=== PATIENT | male | born 1960 | race Caucasian/White ===

== ENCOUNTER 2019-03-20 07:52 | Inpatient (IN) ==
[2019-03-20] MEDS ORDERED: ALBUT/IPRATROP 3MG/0.5MG NEB 3 ML VIAL NEB ONE (08:14)
[2019-03-20] MEDS ORDERED: methylPREDNISolone 125 MG/2 ML VIAL IV STA (08:14)
[2019-03-20] MEDS ORDERED: SODIUM CHLORIDE 0.9% 1000ML 1,000 ML IV SCH (08:15)
[2019-03-20 08:24] LABS: Basophils # (auto) 0.01 K/uL (0-0.2); Basophils % (auto) 0.1 %; Eosinophils # (auto) 0.01 K/uL (0-0.5); Eosinophils % (auto) 0.1 %; Hematocrit (blood only) 49.7 % (42-52); Hemoglobin 17.7 g/dL (14.0-18.0); Immature Granulocytes # (auto) 0.08 K/uL (0.00-0.02); Immature Granulocytes % (auto) 0.5 %; Lymphocytes # (auto) 1.23 K/uL (1.2-3.4); Mean Corpuscular Hemoglobin 33.1 pg (25-34); Mean Corpuscular Hgb Conc 35.6 g/dL (32-36); Mean Corpuscular Volume 92.9 fL (80-100); Mean Platelet Volume 10.4 fL (7.4-10.4); Monocytes # (auto) 0.97 K/uL (0.11-0.59); Monocytes % (auto) 5.5 %; Neutrophils # (auto) 15.25 K/uL (1.4-6.5); Neutrophils % (auto) 86.8 %; Platelet Count 270 K/uL (130-400); RDW Coefficient of Variation 12.6 % (11.5-14.5); RDW Standard Deviation 42.4 fL (36.4-46.3); Red Blood Count 5.35 M/uL (4.7-6.1); White Blood Count 17.55 K/uL (4.8-10.8)
[2019-03-20 08:34] LABS: Partial Thromboplastin Time 26.8 Seconds (21.0-31.0); Prothrombin Time 10.5 Seconds (9.0-12.0)
[2019-03-20] MEDS: NICOTINE 14 MG/24 HR PATCH TD SCH ×2 (08:37→11:46)
--- NOTE | 2019-03-20 08:37 | XRay Report ---
XR chest 1V portable CLINICAL HISTORY: 59 years-old Male presenting with Dyspnea. TECHNIQUE: Portable upright AP view of the chest was obtained. COMPARISON: None. FINDINGS: Cardiomediastinal silhouette normal. Lungs are hyperinflated. Heterogeneous radiolucency of the lungs . No focal opacity. No pleural effusion or pneumothorax. Cervical fusion hardware noted. Old posterio r right rib fracture noted. Upper abdomen normal. IMPRESSION: 1. Findings suggest emphysema. No focal infiltrate to suggest pneumonia. Electronically signed by: Dano Jasso M.D. 03/20/2019 8:35 AM
[2019-03-20 08:50] LABS: Albumin Globulin Ratio 0.8 (0.9-2); Albumin Level 3.8 gm/dl (3.4-5.0); BUN Creatinine Ratio 33.9 (10-20); Bilirubin,Total 0.4 mg/dl (0.2-1); Calcium 9.5 mg/dl (8.5-10.1); Creatinine Clr Calc Pharmacy 73.3 ml/min; Est GFR (African American) 97.9; Est GFR (Non-African American) 84.5; Globulin 4.7 gm/dl (2.5-4.0); Magnesium 2.4 mg/dl (1.8-2.4); Potassium 4.6 mmol/L (3.5-5.1); Total Protein 8.5 gm/dl (6.4-8.2); Troponin I 0.058 ng/ml (0-0.045)
[2019-03-20] MEDS ORDERED: OXYCODONE HCL IR 5 MG TAB (IMMEDIATE RELEASE) PO STA (09:06)
[2019-03-20 09:07] LABS: Base Excess VBG 6.7 mEq/L; HCO3 VBG 36 mmol/L; Oxygen Saturation VBG < 60.0 %; PCO2 VBG 68 mmHg (38-50); PO2 VBG 24 mmHg; pH VBG 7.33 (7.36-7.41)
[2019-03-20 09:40] LABS: Influenza A virus by PCR Neg for Influ A (Neg); Influenza B virus by PCR Neg for Influ B (Neg)
--- NOTE | 2019-03-20 10:04 | History & Physical Report ---
Date of Service March 20, 2019 Assessment & Plan (1) Acute respiratory failure with hypoxia: (2) Acute exacerbation of chronic obstructive pulmonary disease (COPD): This is a 59yo M with a PMH of COPD, tobacco use disorder, bipolar disorder, anxiety and other medical problems listed below with presents with cough and shortness of breath x 6 days and was found to have acute respiratory failure with hypoxia and COPD exacerbation. -Initially hypoxic at 87% on room air. Given hour long breathing treatment and is now saturating at 98% on 2L NC -VBG pH of 7.33. No confusion or lethargy. Will repeat in 4 hours -CXR with evidence of emphysema. No focal infiltrate to suggest pneumonia -Solumedrol 40mg Q6H, Duonebs QIDR, Levaquin 500mg daily -Blood and sputum cultures pending -Does not take any home inhalers (albuterol, advair, spiriva) 2/2 cost (3) Elevated troponin: Mild trop elevation of 0.058 -Likely demand ischemia in setting of acute hypoxic respiratory failure -No chest pain, no history of CAD, EKG with artifact - repeat pending -Trend troponin, monitor on telemetry (4) Tobacco use disorder: Interested in smoking cessation. Nicotine patch provided (5) Anxiety: (6) Bipolar disorder: Continue Xanax, Zoloft (7) Chronic pain: Continue home dose [place] 1 tab BID, per home med rec/PDMP (8) H/O: CVA (cerebrovascular accident): Resume baby aspirin -Most recent CVA in May 2018, no deficits (9) Insomnia: Continue home trazodone, Ambien DVT Ppx: SQ heparin Code status: FULL PCP: Joe Dispo: Admitted to telemetry. Plan to return home once medically stable. Patient seen in collaboration with Dr. Almodovar. Please see addendum. History of Present Illness Chief Complaint: cough, SOB Primary Care Provider: Chris Diaz, This is a 59yo M with a PMH of COPD, tobacco use disorder, bipolar disorder, anxiety and other medical problems listed below with presents with cough and shortness of breath x 6 days. Describes cough as productive with green sputum. Initially had low grade fever that has since resolved. Has been audibly wheezing and has felt short of breath. Called clinic yesterday and was prescribed Z-demetrius and prednisone 40mg, which he took yesterday. SOB has progressed so came to ED today with family at bedside for further evaluation. Denies chills, hemoptysis or chest pain. Has been decreasing cigarette amount and now smokes 1/2 ppd. Is interested in quitting. Does not take any home inhalers (prescribed albuterol, Advair and Spiriva) due to cost. In ED, found to be afebrile and initially hypoxic at 87% on room air. Given hour long breathing treatment and is now saturating at 98% on 2L NC. Does not require home oxygen. Also given IV solu-medrol 125mg in ED and 1 L NSS. Leukocytosis of 17k. Troponin mildly elevated at 0.058. VBG pH of 7.33. CXR with evidence of emphysema. No lightheadedness, visual changes, sore throat, nausea, vomiting, abdominal pain, dysuria, diarrhea, constipation or lower extremity swelling. Allergies Allergy/AdvReac Type Severity Reaction Status Date / Time No Known Allergies Allergy Unverified 03/20/19 08:55 Home Medications Home Medications Medication Instructions Recorded Confirmed Type alprazolam [Xanax] 1 mg PO TID 03/20/19 03/20/19 History azithromycin 250 mg PO DAILY 03/20/19 03/20/19 History hydrocodone-acetaminophen [[place]] 1 tab PO BID PRN 03/20/19 03/20/19 History ipratropium-albuterol 3 ml INHALATION Q4 PRN 03/20/19 03/20/19 History prednisone 40 mg PO DAILY 03/20/19 03/20/19 History sertraline [Zoloft] 200 mg PO QPM 03/20/19 03/20/19 History tizanidine [Zanaflex] 4 mg PO TID PRN 03/20/19 03/20/19 History trazodone 300 mg PO QPM 03/20/19 03/20/19 History zolpidem 10 mg PO HS 03/20/19 03/20/19 History Past Med/Surg History Medical History Tobacco use disorder (Chronic) Chronic pain (Chronic) Bipolar disorder (Chronic) H/O: CVA (cerebrovascular accident) (Chronic) Anxiety (Chronic) COPD (chronic obstructive pulmonary disease) (Chronic) Surgical History History of cervical spinal surgery (Chronic) History of hip surgery (Chronic) Family History Other Heart disease Social History Preferred Language: [place] Front Office Director Required: No Beliefs That Will Affect Care: None Current Living Situation: Spouse Other Information That Helps Us Care for You: No Feels Safe at Home: Yes Safety Concerns: Feels Safe At This Time Smoking Status: Current every day smoker Tobacco Type: cigarettes ; Cigarettes Per Day: 10 ; Do You Dip or Chew Tobacco: No ; Second Hand Exposure: Yes ; Tobacco Cessation Education Requested by Patient: No Hx Alcohol Use: No Hx Substance Use: No Review of Systems Review of Systems: At least ten systems reviewed and negative except as noted in the HPI. Physical Exam Physical Exam: General Appearance: WD/WN, vitals as above, NAD, sitting up in bed, dyspneic when speaking, + accessory muscle use Head: normocephalic, atraumatic Eyes: normal inspection, PERRL, conjunctivae normal, anicteric sclerae ENT: external ear and nose normal, oropharynx normal Neck: trachea midline, no thyromegaly normal visual inspection Respiratory: tachypneic, diffuse wheezing heard in bilateral lung shemran, scattered rhonchi, no rales. +accessory muscle use when speaking Cardiovascular: regular rate, rhythm, no murmur, normal peripheral pulses. Vessels: no JVD or carotid bruit Chest: normal inspection of chest Abdomen/GI: normal bowel sounds, soft, nontender, no hepatosplenomegaly Extremities/Musculoskelatal: no cyanosis or clubbing, extremities motor strength 5/5 Neurologic: PERRL, EOMI, accommodation nl, no face palsy, no dysarthria CN's II-XI intact bilaterally and moves all extremities Psychiatric: A+Ox3, euthymic affect Skin: no rashes, normal color, warm/dry Results & Data Vital Signs (Past 12 Hours) Vital Signs Temp Pulse Pulse Resp BP Pulse Ox 03/20/19 09:30 78 27 H 159/89 H 98 03/20/19 09:15 81 26 H 153/91 H 100 03/20/19 09:00 74 20 141/88 H 100 03/20/19 08:45 75 26 H 133/100 100 03/20/19 08:31 80 22 98 03/20/19 08:30 78 21 138/89 100 03/20/19 08:17 99 03/20/19 08:15 96 03/20/19 08:10 90 33 H 166/104 H 87 L 03/20/19 07:58 36.4 C L 86 30 H 153/97 H 92 Laboratory Results Short CBC 03/20/19 Range/Units 08:13 WBC 17.55 H (4.8-10.8) K/uL Hgb 17.7 (14.0-18.0) g/dL Hct 49.7 (42-52) % Plt Count 270 (130-400) K/uL BMP 03/20/19 08:13 Sodium 133 L Potassium 4.6 Chloride 94 L Carbon Dioxide 33 H BUN 33 H Creatinine 0.97 Glucose 105 H Calcium 9.5 Cardiac Enzymes 03/20/19 Range/Units 08:13 Troponin I 0.058 H* (0-0.045) ng/ml Liver Function 03/20/19 Range/Units 08:13 Total Bilirubin 0.4 (0.2-1) mg/dl AST 29 (15-37) U/L ALT 21 (12-78) U/L Alkaline Phosphatase 94 (45-117) U/L Albumin 3.8 (3.4-5.0) gm/dl Diagnostic Findings CXR: IMPRESSION: 1. Findings suggest emphysema. No focal infiltrate to suggest pneumonia. Code Status & VTE Plan VTE Prophylaxis Plan VTE Prophylaxis will be ordered: Yes Supervising Physician Co-Signing Physician Notes Patient is a 59-year-old male with history of COPD, ongoing tobacco use and other problems presents with history of worsening cough, shortness of breath since about 1 week duration. He reports associated low-grade fever, audible wheezes. He was started on Z-Demetrius and prednisone by his PCP yesterday which did not help. He admits to not using his home inhalers for about 1 year. He was found to be hypoxic in 80s while in ED. Patient meets SIRS criteria, with no obvious source of infection. On exam patient is thin, frail, no apparent distress, normocephalic atraumatic, normal breath sounds, bilateral wheezes, S1- S2, no murmur, abdomen soft nontender, no pedal edema, grossly no focal neurological deficits. Patient is admitted for management of acute respiratory failure with hypoxia, hypercapnia secondary to COPD exacerbation. Agree with IV Solu-Medrol, Taiwo mario. Supplemental oxygen as needed. Trend cardiac enzymes. Patient currently denies any chest pain. Elevated troponins likely secondary to demand ischemia. Consider echo, further evaluation if troponin continues to rise. EKG showed no signs of acute ischemia. Counseled to quit smoking. I personally reviewed the record. Patient is interviewed and examined at bedside. Patient's care is coordinated with Yajaira Pires PA-C. Please refer to the documentation above for details of patient's presentation and for discussion of other issues.
--- NOTE | 2019-03-20 10:41 | Emergency Department Note ---
Entered by Tania Valdez acting as a scribe for Tone Marshall DO History of Present Illness General Chief complaint: Shortness of Breath/Dyspnea Stated complaint: DYSPNEA Time Seen by Provider: 03/20/19 08:03 Source: patient and family () History of Present Illness Onset (ago): hour(s) (prior to arrival) Location: chest Severity: similar to prior episodes Pain Consistency: + other (episode) Maximum Pain Intensity: 6 Quality: + other (shortness of breath) Associated symptoms: + chest pain, + cough (with green phlegm) and + other (- rhinorrhea; -leg swelling); no fever/chills The patient is a 59 year old male, with past medical history of COPD w/ emphysema, who presents to the Emergency Room with complaints of an episode of shortness of breath prior to arrival, per the patient's . The of the patient states the patient experiences symptoms like this every year around this time when the patient experiences a cold. The states that typically cough medicine and steroids helps with symptoms, but she notes they have not helped presently. The states the patient can not currently take a deep breath. The states the patient does not have a fever, rhinorrhea, or leg swelling. She does note the patient has had some chest pain and a cough with green phlegm. The states that patient does not have any drug allergies, but she notes the patient has not taken his daily medications since 2 days ago. The also sta piper the patient has not had his flu shot. She reports the patient started antibiotics (Augmentin 250 mg) and steroid treatment yesterday that was prescribed by the patient's family doctor - Dr. Chris Diaz. The patient reports he smokes a pack of cigarettes a day, and he denies recent long travel . Home Medications Home Medications Medication Instructions Recorded Confirmed Type alprazolam [Xanax] 1 mg PO TID 03/20/19 03/20/19 History azithromycin 250 mg PO DAILY 03/20/19 03/20/19 History hydrocodone-acetaminophen [[place]] 1 tab PO BID PRN 03/20/19 03/20/19 History ipratropium-albuterol 3 ml INHALATION Q4 PRN 03/20/19 03/20/19 History prednisone 40 mg PO DAILY 03/20/19 03/20/19 History sertraline [Zoloft] 200 mg PO QPM 03/20/19 03/20/19 History tizanidine [Zanaflex] 4 mg PO TID PRN 03/20/19 03/20/19 History trazodone 300 mg PO QPM 03/20/19 03/20/19 History zolpidem 10 mg PO HS 03/20/19 03/20/19 History Allergies Allergy/AdvReac Type Severity Reaction Status Date / Time No Known Allergies Allergy Unverified 03/20/19 08:55 Past Med/Surg History Medical History Tobacco use disorder (Chronic) Chronic pain (Chronic) Bipolar disorder (Chronic) H/O: CVA (cerebrovascular accident) (Chronic) Anxiety (Chronic) COPD (chronic obstructive pulmonary disease) (Chronic) Surgical History History of cervical spinal surgery (Chronic) History of hip surgery (Chronic) Family History Other Heart disease Social History Preferred Language: [place] [employer] Required: No Beliefs That Will Affect Care: None Current Living Situation: Spouse Other Information That Helps Us Care for You: No Feels Safe at Home: Yes Safety Concerns: Feels Safe At This Time Smoking Status: Current every day smoker Tobacco Type: cigarettes ; Cigarettes Per Day: 10 ; Do You Dip or Chew Tobacco: No ; Second Hand Exposure: Yes ; Tobacco Cessation Education Requested by Patient: No Hx Alcohol Use: No Hx Substance Use: No Review of Systems See HPI for pertinent positives & negatives. and A total of 10 systems reviewed and were otherwise negative Physical Exam Vital Signs Vital Signs - 24 hr 03/20/19 07:58 03/20/19 08:10 03/20/19 08:15 Temperature 36.4 C L Temperature Source Oral Sepsis Recent Fever Within 48 Hours No Sepsis Action Taken by Nursing No Action Required Pulse Rate 86 90 Pulse Rate [Apical] Pulse Rate from SpO2 Sensor 89 Pulse Strength Normal Respiratory Rate 30 H 33 H Respiratory Effort / Characteristics Non-Labored Labored Respiratory Depth Normal Shallow Respiratory Pattern Regular Rapid/Shallow Blood Pressure 153/97 H 166/104 H Blood Pressure Mean 115 124 Pulse Oximetry 92 87 L 96 Oxygen Delivery Method Room Air Room Air Nasal Cannula Oxygen Flow Rate 2 03/20/19 08:17 03/20/19 08:30 03/20/19 08:31 Temperature Temperature Source Sepsis Recent Fever Within 48 Hours Sepsis Action Taken by Nursing Pulse Rate 78 Pulse Rate [Apical] 80 Pulse Rate from SpO2 Sensor 79 Pulse Strength Respiratory Rate 21 22 Respiratory Effort / Characteristics Spontaneous Respiratory Depth Respiratory Pattern Blood Pressure 138/89 Blood Pressure Mean 105 Pulse Oximetry 99 100 98 Oxygen Delivery Method Nasal Cannula Nasal Cannula Nasal Cannula Oxygen Flow Rate 2 2 2 03/20/19 08:45 03/20/19 09:00 03/20/19 09:15 Temperature Temperature Source Sepsis Recent Fever Within 48 Hours Sepsis Action Taken by Nursing Pulse Rate 75 74 81 Pulse Rate [Apical] Pulse Rate from SpO2 Sensor 75 75 81 Pulse Strength Respiratory Rate 26 H 20 26 H Respiratory Effort / Characteristics Respiratory Depth Respiratory Pattern Blood Pressure 133/100 141/88 H 153/91 H Blood Pressure Mean 111 105 111 Pulse Oximetry 100 100 100 Oxygen Delivery Method Nebulizer Nebulizer Oxygen Flow Rate 03/20/19 09:30 03/20/19 09:45 03/20/19 09:56 Temperature Temperature Source Sepsis Recent Fever Within 48 Hours Sepsis Action Taken by Nursing Pulse Rate 78 82 84 Pulse Rate [Apical] Pulse Rate from SpO2 Sensor 78 81 86 Pulse Strength Respiratory Rate 27 H 22 18 Respiratory Effort / Characteristics Respiratory Depth Respiratory Pattern Blood Pressure 159/89 H 162/96 H 162/96 H Blood Pressure Mean 112 118 118 Pulse Oximetry 98 92 93 Oxygen Delivery Method Nasal Cannula Nasal Cannula Nasal Cannula Oxygen Flow Rate 2 2 2 03/20/19 10:00 Temperature Temperature Source Sepsis Recent Fever Within 48 Hours Sepsis Action Taken by Nursing Pulse Rate 84 Pulse Rate [Apical] Pulse Rate from SpO2 Sensor 83 Pulse Strength Respiratory Rate 20 Respiratory Effort / Characteristics Respiratory Depth Respiratory Pattern Blood Pressure 167/92 H Blood Pressure Mean 117 Pulse Oximetry 92 Oxygen Delivery Method Nasal Cannula Oxygen Flow Rate 2 GENERAL: Patient is awake, alert, and appears anxious. EYES: The conjunctivae are clear. The pupils are round and reactive. EARS, NOSE, MOUTH AND THROAT: The nose is without any evidence of any deformity. Mucous membranes are moist.Tongue is midline NECK: The neck is nontender and supple. RESPIRATORY: Lungs sounds diminished throughout. Expiratory wheezing in all sherman. Poor air movement was noted. Significant tachypnea and conversational dyspnea was appreciated. Retractions were noted. CARDIOVASCULAR: Regular rate and rhythm noted. There no murmurs rubs or gallops normal S1 normal S2 GASTROINTESTINAL: The abdomen is soft. Bowel sounds are present in all quadrants. Abdomen is nontender. MUSCULOSKELETAL/EXTREMITIES: There is no evidence of gross deformity. Full range of motion is noted in the hips and shoulders. SKIN: There is no obvious evidence of any rash. There are no petechiae, pallor or cyanosis noted. NEUROLOGIC: Patient is awake alert and oriented x3. Course 0810: Past medical records reviewed. The patient was evaluated in room B3B. A complete history and physical exam was performed. 0900: I reevaluated the patient. The patient is feeling a little better, but the patient is asking for something for his headache. 0908: I reviewed the patient's case with Faye Chaidez. Dr. Santi Chaidez will evaluate the patient for further management. Consultations Consultation #1: I reviewed the patient's case with Faye Chaidez. Dr. Santi Chaidez will evaluate the patient for further management. Time: 09:08 Administered Medications Albuterol (Duoneb) 3 ml NEB QIDR [facility] Stop: 04/19/19 10:59 Last Admin: 03/20/19 15:01 Dose: 3 ml Documented by: [id number] Admin: 03/20/19 13:56 Dose: Not Given Documented by: [id number] Alprazolam (Xanax) 1 mg PO TID LINDA Stop: 04/19/19 13:59 Last Admin: 03/20/19 15:08 Dose: 1 mg Documented by: [id number] Heparin Sodium (Porcine) (Heparin Sodium (Porcine)) 5,000 units SQ Q8 LINDA Stop: 04/19/19 13:59 Last Admin: 03/20/19 15:04 Dose: 5,000 units Documented by: [id number] Cosigned by: [id number] Methylprednisolone 40 mg/ (Syringe) 0.64 mls @ 1.5 mls/min IV Q6H LINDA Stop: 04/19/19 13:59 Last Admin: 03/20/19 15:07 Dose: 1.5 mls/min Documented by: [id number] Levofloxacin/Dextrose (Levaquin/D5w) 500 mg in 100 mls @ 100 mls/hr IV Q24H LINDA Stop: 03/27/19 11:29 Last Infusion: 03/20/19 13:20 Dose: 0 mls/hr Documented by: [id number] Admin: 03/20/19 12:20 Dose: 100 mls/hr Documented by: [id number] Sodium Chloride (Nss 1000ml) 1,000 mls @ 80 mls/hr IV .[id number] ONE Stop: 03/20/19 23:46 Last Infusion: 03/20/19 13:20 Dose: 80 mls/hr Documented by: [id number] Infusion: 03/20/19 12:21 Dose: 0 mls/hr Documented by: [id number] Admin: 03/20/19 12:20 Dose: 80 mls/hr Documented by: [id number] Nicotine (Nicoderm Cq) 14 mg TD QAM LINDA Stop: 04/19/19 08:29 Last Admin: 03/20/19 11:46 Dose: Not Given Documented by: [id number] Admin: 03/20/19 08:37 Dose: 14 mg Documented by: [id number] Discontinued Medications Albuterol (Duoneb) 12 ml NEB ONE ONE Stop: 03/20/19 08:15 Last Admin: 03/20/19 08:28 Dose: 12 ml Documented by: [id number] Alprazolam (Xanax) 1 mg PO NOW STA Stop: 03/20/19 12:06 Last Admin: 03/20/19 12:20 Dose: 1 mg Documented by: [id number] Sodium Chloride (Nss 1000ml) 1,000 mls @ 999 mls/hr IV .Q1H1M LINDA Stop: 03/20/19 09:15 Last Infusion: 03/20/19 09:23 Dose: 0 mls/hr Documented by: [id number] Admin: 03/20/19 08:21 Dose: 999 mls/hr Documented by: [id number] Influenza Virus Vaccine Quadrival (Flucelvax Quad Vaccine) 0.5 ml IM .ONCE ONE Stop: 03/20/19 14:01 Last Admin: 03/20/19 15:12 Dose: 0.5 ml Documented by: [id number] Methylprednisolone (Solumedrol) 125 mg IV NOW STA Stop: 03/20/19 08:15 Last Admin: 03/20/19 08:21 Dose: 125 mg Documented by: [id number] Oxycodone HCl (Roxicodone Immediate Rel) 5 mg PO NOW STA Stop: 03/20/19 09:07 Last Admin: 03/20/19 09:11 Dose: 5 mg Documented by: [id number] Pneumococcal Polyvalent Vaccine (Pneumovax-23) 25 mcg IM .ONCE ONE Stop: 03/20/19 14:01 Last Admin: 03/20/19 15:08 Dose: 25 mcg Documented by: [id number] Medical Decision Making Differential Diagnosis Differential diagnosis: Etiologies such as infections, reactive airway disease, pneumonia, pneumothorax, COPD, CHF, cardiac ischemia, pulmonary embolism, musculoskeletal, gastrointestinal, as well as others were entertained. Medical Records Attestation: I reviewed the patient's medical records. Home Medications Current Medication List: was personally reviewed by me Laboratory Data Attestation: I reviewed the patient's lab results. Result diagrams: 03/20/19 08:13 03/20/19 08:13 Lab Results 03/20/19 03/20/19 03/20/19 Range/Units 08:13 08:13 08:13 WBC 17.55 H (4.8-10.8) K/uL RBC 5.35 (4.7-6.1) M/uL Hgb 17.7 (14.0-18.0) g/dL Hct 49.7 (42-52) % MCV 92.9 (80-100) fL MCH 33.1 (25-34) pg MCHC 35.6 (32-36) g/dL RDW Std Deviation 42.4 (36.4-46.3) fL RDW Coeff of Mani 12.6 (11.5-14.5) % Plt Count 270 (130-400) K/uL MPV 10.4 (7.4-10.4) fL Immature Gran % (Auto) 0.5 % Neut % (Auto) 86.8 % Lymph % (Auto) 7.0 % [place] % (Auto) 5.5 % Eos % (Auto) 0.1 % Baso % (Auto) 0.1 % Immature Gran # (Auto) 0.08 H (0.00-0.02) K/uL Neut # (Auto) 15.25 H (1.4-6.5) K/uL Lymph # (Auto) 1.23 (1.2-3.4) K/uL [place] # (Auto) 0.97 H (0.11-0.59) K/uL Eos # (Auto) 0.01 (0-0.5) K/uL Baso # (Auto) 0.01 (0-0.2) K/uL PT 10.5 (9.0-12.0) Seconds INR 1.0 (0.9-1.1) APTT 26.8 (21.0-31.0) Seconds PTT Ratio 1.0 VBG pH (7.36-7.41) VBG pCO2 (38-50) mmHg VBG pO2 mmHg VBG HCO3 mmol/L VBG O2 Saturation % VBG Base Excess mEq/L Barometric Pressure mm/Hg Sodium 133 L (136-145) mmol/L Potassium 4.6 (3.5-5.1) mmol/L Chloride 94 L (98-107) mmol/L Carbon Dioxide 33 H (21-32) mmol/L Anion Gap 6.0 (3-11) BUN 33 H (7-18) mg/dl Creatinine 0.97 (0.6-1.4) mg/dl Est Cr Clr Drug Dosing 73.3 ml/min Est GFR ( Amer) 97.9 Est GFR (Non-Af Amer) 84.5 BUN/Creatinine Ratio 33.9 H (10-20) Glucose 105 H (70-99) mg/dl Calcium 9.5 (8.5-10.1) mg/dl Magnesium 2.4 (1.8-2.4) mg/dl Total Bilirubin 0.4 (0.2-1) mg/dl AST 29 (15-37) U/L ALT 21 (12-78) U/L Alkaline Phosphatase 94 (45-117) U/L Troponin I 0.058 H* (0-0.045) ng/ml Total Protein 8.5 H (6.4-8.2) gm/dl Albumin 3.8 (3.4-5.0) gm/dl Globulin 4.7 H (2.5-4.0) gm/dl Albumin/Globulin Ratio 0.8 L (0.9-2) Specimen Hemolysis Hepatitis C Ab Screen (Neg) Influenza Type A (PCR) (Neg) Influenza Type B (PCR) (Neg) 1003/20/19 03/20/19 Range/Units 08:13 08:13 08:38 WBC (4.8-10.8) K/uL RBC (4.7-6.1) M/uL Hgb (14.0-18.0) g/dL Hct (42-52) % MCV (80-100) fL MCH (25-34) pg MCHC (32-36) g/dL RDW Std Deviation (36.4-46.3) fL RDW Coeff of Mani (11.5-14.5) % Plt Count (130-400) K/uL MPV (7.4-10.4) fL Immature Gran % (Auto) % Neut % (Auto) % Lymph % (Auto) % [place] % (Auto) % Eos % (Auto) % Baso % (Auto) % Immature Gran # (Auto) (0.00-0.02) K/uL Neut # (Auto) (1.4-6.5) K/uL Lymph # (Auto) (1.2-3.4) K/uL [place] # (Auto) (0.11-0.59) K/uL Eos # (Auto) (0-0.5) K/uL Baso # (Auto) (0-0.2) K/uL PT (9.0-12.0) Seconds INR (0.9-1.1) APTT (21.0-31.0) Seconds PTT Ratio VBG pH 7.33 L (7.36-7.41) VBG pCO2 68 H (38-50) mmHg VBG pO2 24 mmHg VBG HCO3 36 mmol/L VBG O2 Saturation < 60.0 % VBG Base Excess 6.7 mEq/L Barometric Pressure 729.8 mm/Hg Sodium (136-145) mmol/L Potassium (3.5-5.1) mmol/L Chloride (98-107) mmol/L Carbon Dioxide (21-32) mmol/L Anion Gap (3-11) BUN (7-18) mg/dl Creatinine (0.6-1.4) mg/dl Est Cr Clr Drug Dosing ml/min Est GFR ( Amer) Est GFR (Non-Af Amer) BUN/Creatinine Ratio (10-20) Glucose (70-99) mg/dl Calcium (8.5-10.1) mg/dl Magnesium (1.8-2.4) mg/dl Total Bilirubin (0.2-1) mg/dl AST (15-37) U/L ALT (12-78) U/L Alkaline Phosphatase (45-117) U/L Troponin I (0-0.045) ng/ml Total Protein (6.4-8.2) gm/dl Albumin (3.4-5.0) gm/dl Globulin (2.5-4.0) gm/dl Albumin/Globulin Ratio (0.9-2) Specimen Hemolysis Hepatitis C Ab Screen Neg (Neg) Influenza Type A (PCR) Neg for Influ A (Neg) Influenza Type B (PCR) Neg for Influ B (Neg) Imaging Data Radiologist's Impression: Radiology results as stated below per my review and the radiologist's interpretation: XR chest 1V portable CLINICAL HISTORY: 59 years-old Male presenting with Dyspnea. TECHNIQUE: Portable upright AP view of the chest was obtained. COMPARISON: None. FINDINGS: Cardiomediastinal silhouette normal. Lungs are hyperinflated. Heterogeneous radiolucency of the lungs. No focal opacity. No pleural effusion or pneumothorax. Cervical fusion hardware noted. Old posterior right rib fracture noted. Upper abdomen normal. IMPRESSION: 1. Findings suggest emphysema. No focal infiltrate to suggest pneumonia. Electronically signed by: Dano Jasso M.D. 03/20/2019 8:35 AM ECG Data Attestation: I personally reviewed and interpreted this ECG as follows: Indication: SOB/dyspnea Rate (beats per minute): 72 Rhythm: normal sinus Findings: no PAC, no PVC, no ST depression, no ST elevation, no acute ischemic change and no ectopy Comparison ECG Date: no prior available Blood Pressure Blood Pressure Findings: Elevated blood pressure Blood Pressure Disposition: further management by hospitalist ALEXY Narrative The patient is a 59-year-old male who presented to the emergency department for an evaluation of difficulty breathing. The patient is a history of COPD. He does have significant shortness of breath on my physical exam. The patient was treated with rhonchal dilator therapy as well as IV steroids. He was also treated with IV fluids. The patient was reevaluated multiple times. His breathing status continued to improve. He had much less conversational dyspnea on physical exam. I discussed the patient's laboratory and radiographic studies with him. He was hypoxic but this was improved on supplement oxygen. I discussed this case with the on-call [facility] hospitalist group. They have agreed to evaluate the patient in the emergency department for further management disposition. Impression & Plan Acute exacerbation of chronic obstructive pulmonary disease (COPD), Hypoxia, Elevated troponin Critical Care Time Critical Care Time: Yes Total Critical Care Time: 45 I have personally spent 45 minutes of critical care time in the direct management of this patient. This includes bedside care, interpretation of diagnostic studies, and testing, discussion with consultants, patient, and family members, and other required patient management activities. This 45 minutes is in excess of all separately billable procedures. Discharge Plan Visit Data *Final* Discharge Date/Time: 03/20/19 10:19 Chief Complaint: Shortness of Breath/Dyspnea Stated Complaint: DYSPNEA ED Provider: Tone Marshall Discharge Problem: Acute exacerbation of chronic obstructive pulmonary disease (COPD), Hypoxia, Elevated troponin Patient Disposition: Admitted As Inpatient Discharge Instructions Interventions: ED Discharge Assessment Last Done: 03/20/19 10:19 The scribe's documentation has been prepared under my direction and personally reviewed by me in its entirety. I confirm that the note above accurately reflects all work, treatment, procedures, and medical decision making performed by me.
[2019-03-20] MEDS ORDERED: ACETAMINOPHEN 325 MG TAB PO PRN (10:50)
[2019-03-20] MEDS ORDERED: POLYETHYLENE (MIRALAX) 17 GM PACK PO PRN (10:50)
[2019-03-20] MEDS ORDERED: SODIUM CHLORIDE 0.9% 1000ML 1,000 ML IV ONE (11:17)
[2019-03-20] MEDS ORDERED: ALPRAZolam 0.5 MG TABLET PO STA (12:05)
[2019-03-20] MEDS: LEVOFLOXACIN/D5W 500 MG/100 ML BAG IV SCH (12:20)
[2019-03-20 13:56] LABS: Appearance Urine Clear (Clear); Bacteria Urine Automated Negative (Negative); Bilirubin Urine Negative (Negative); Blood Urine Trace (Negative); Cast Urine Automated 0 /lpf (0-5); Color Urine Yellow; Glucose Urine UA Negative (Negative); Ketones Urine 1+ (Negative); Leukocyte Esterase Urine Negative (Negative); Nitrite Urine Negative (Negative); Protein Urine Negative (Negative); RBC Urine Automated 0-4 /hpf (0-4); Specific Gravity Urine 1.024 (1.000-1.030); Urobilinogen Urine Negative (Negative)
[2019-03-20] MEDS: ALBUT/IPRATROP 3MG/0.5MG NEB 3 ML VIAL NEB SCH ×3 (13:56→19:09)
[2019-03-20] MEDS ORDERED: PNEUMOCOCCAL POLYSACCHARIDES 25 MCG/0.5 ML VIAL/SYR IM ONE (14:00)
[2019-03-20] MEDS ORDERED: INFLUENZA ADMINISTRATION CHARGE ONE (14:00)
[2019-03-20] MEDS ORDERED: PNEUMOCOCCAL ADMINISTRATION CHARGE ONE (14:00)
[2019-03-20] MEDS ORDERED: INFLUENZA VIRUS QUAD VACCINE 0.5 ML SYR IM ONE (14:00)
[2019-03-20] MEDS: HEPARIN SOD 5,000 UNIT/0.5 ML VIAL SQ SCH ×2 (15:04→20:31)
[2019-03-20] MEDS: methylPREDNISolone 40 MG in SYRINGE 0 ML IV SCH ×2 (15:07→20:31)
[2019-03-20] MEDS: ALPRAZolam 0.5 MG TABLET PO SCH ×2 (15:08→20:38)
[2019-03-20] MEDS: SERTRALINE HCL 100 MG TABLET PO SCH (20:30)
[2019-03-20] MEDS: TRAZODONE HCL 100 MG TAB PO SCH (20:30)
[2019-03-20] MEDS: ZOLPIDEM TARTRATE 10 MG TAB PO SCH (20:38)
[2019-03-21] MEDS: methylPREDNISolone 40 MG in SYRINGE 0 ML IV SCH ×4 (03:01→20:30)
[2019-03-21] MEDS: ALBUT/IPRATROP 3MG/0.5MG NEB 3 ML VIAL NEB SCH ×5 (03:55→19:10)
[2019-03-21] MEDS: HEPARIN SOD 5,000 UNIT/0.5 ML VIAL SQ SCH ×3 (05:13→20:33)
[2019-03-21 07:25] LABS: Hematocrit (blood only) 42.7 % (42-52); Hemoglobin 14.6 g/dL (14.0-18.0); Mean Corpuscular Hemoglobin 31.7 pg (25-34); Mean Corpuscular Hgb Conc 34.2 g/dL (32-36); Mean Corpuscular Volume 92.6 fL (80-100); Mean Platelet Volume 10.4 fL (7.4-10.4); Platelet Count 268 K/uL (130-400); RDW Coefficient of Variation 12.9 % (11.5-14.5); RDW Standard Deviation 43.1 fL (36.4-46.3); Red Blood Count 4.61 M/uL (4.7-6.1); White Blood Count 27.33 K/uL (4.8-10.8)
[2019-03-21 07:36] LABS: BUN Creatinine Ratio 31.3 (10-20); Calcium 8.8 mg/dl (8.5-10.1); Creatinine Clr Calc Pharmacy 74.9 ml/min; Est GFR (African American) 109.2; Est GFR (Non-African American) 94.3; Potassium 4.1 mmol/L (3.5-5.1)
[2019-03-21] MEDS: ALPRAZolam 0.5 MG TABLET PO SCH ×3 (08:07→20:30)
[2019-03-21] MEDS: NICOTINE 14 MG/24 HR PATCH TD SCH (08:08)
[2019-03-21] MEDS: ALBUT/IPRATROP 3MG/0.5MG NEB 3 ML VIAL NEB PRN ×2 (08:22→17:53)
[2019-03-21] MEDS: LEVOFLOXACIN/D5W 500 MG/100 ML BAG IV SCH (12:19)
[2019-03-21 14:19] LABS: Base Excess VBG 9.1 mEq/L; Oxygen Saturation VBG 87.6 %; pH VBG 7.46 (7.36-7.41)
--- NOTE | 2019-03-21 16:08 | Hospitalist Progress Note ---
Date of Service March 21, 2019 Assessment & Plan (1) Acute respiratory failure with hypoxia: Has gradually been improved, At present on room air, no respiratory distress or hypoxia at rest (2) Acute exacerbation of chronic obstructive pulmonary disease (COPD): This is a 59yo M with a PMH of COPD, tobacco use disorder, bipolar disorder, anxiety and other medical problems listed below with presents with cough and shortness of breath x 6 days and was found to have acute respiratory failure with hypoxia and COPD exacerbation. -Initially hypoxic at 87% on room air. Given hour long breathing treatment and is now saturating at 98% on 2L NC -VBG pH of 7.33. No confusion or lethargy. Respiratory status improved to approximate baseline, no hypoxia in room air -CXR with evidence of emphysema. No focal infiltrate to suggest pneumonia -Start tapering down Solu-Medrol -Does not take any home inhalers (albuterol, advair, spiriva) 2/2 cost Will consult social service, and looking to affordable prescription for inhalers (3) Elevated troponin: Mild trop elevation of 0.058 -Likely demand ischemia in setting of acute hypoxic respiratory failure -No chest pain, no history of CAD, EKG with artifact - - No evidence of acute coronary event, patient remained stable, (4) Tobacco use disorder: Interested in smoking cessation. Nicotine patch provided (5) Anxiety: (6) Bipolar disorder: Continue Xanax, Zoloft (7) Chronic pain: Continue home dose [place] 1 tab BID, per home med rec/PDMP (8) H/O: CVA (cerebrovascular accident): Resume baby aspirin -Most recent CVA in May 2018, no deficits (9) Insomnia: Continue home trazodone, Ambien DVT Ppx: SQ heparin Code status: FULL PCP: Joe Dispo: Expect to be discharged home when medically Subjective Patient feels his breathing has improved somewhat, no audible wheeze, no cough no fever or chills Has been able to walk on the hallway, does get short of breath after few steps Review of Systems Review of Systems: All systems reviewed & are unremarkable except as noted in HPI & below Physical Exam Constitutional: + ill appearing and + thin; no acute distress Eyes: PERRL, conjunctivae normal, anicteric sclerae ENMT: external ear and nose normal, oropharynx normal Neck: trachea midline, no thyromegaly Respiratory: normal respiratory effort and + cough; no respiratory distress Auscultation: + rales and + wheezes Cardiovascular: RRR, no murmur, no edema Gastrointestinal (Abdomen): normal bowel sounds, soft, nontender, no hepatosplenomegaly Musculoskeletal: no cyanosis or clubbing, extremities motor strength 5/5 Skin: no rashes, warm and dry Neurologic: PERRL, EOMI, accommodation nl, no face palsy, no dysarthria Psychiatric: A+Ox3, euthymic affect Results & Data Vital Signs (Past 12 Hours) Vital Signs Temp Pulse Resp BP Pulse Ox 03/21/19 15:57 77 18 98 03/21/19 15:22 36.9 C 77 22 140/77 95 03/21/19 12:11 36.7 C 82 16 142/84 H 91 03/21/19 10:48 88 20 93 03/21/19 08:23 63 18 95 03/21/19 07:57 36.8 C 63 20 162/96 H 95 03/21/19 07:21 79 16 97
[2019-03-21] MEDS: HYDROCODONE/ACETAMINOPHEN 10/325 TAB PO PRN (17:32)
[2019-03-21] MEDS: ZOLPIDEM TARTRATE 10 MG TAB PO SCH (20:30)
[2019-03-21] MEDS: SERTRALINE HCL 100 MG TABLET PO SCH (20:31)
[2019-03-21] MEDS: TRAZODONE HCL 100 MG TAB PO SCH (20:31)
[2019-03-22] MEDS: HYDROCODONE/ACETAMINOPHEN 10/325 TAB PO PRN ×3 (00:43→12:25)
[2019-03-22] MEDS: ALBUT/IPRATROP 3MG/0.5MG NEB 3 ML VIAL NEB PRN (00:47)
[2019-03-22] MEDS: methylPREDNISolone 40 MG in SYRINGE 0 ML IV SCH ×4 (01:03→20:57)
[2019-03-22] MEDS: HEPARIN SOD 5,000 UNIT/0.5 ML VIAL SQ SCH ×3 (06:00→20:57)
[2019-03-22 06:33] LABS: Hematocrit (blood only) 43.3 % (42-52); Hemoglobin 15.1 g/dL (14.0-18.0); Mean Corpuscular Hemoglobin 32.4 pg (25-34); Mean Corpuscular Hgb Conc 34.9 g/dL (32-36); Mean Corpuscular Volume 92.9 fL (80-100); Mean Platelet Volume 9.9 fL (7.4-10.4); Platelet Count 245 K/uL (130-400); RDW Standard Deviation 43.8 fL (36.4-46.3); Red Blood Count 4.66 M/uL (4.7-6.1); White Blood Count 25.11 K/uL (4.8-10.8)
[2019-03-22 07:03] LABS: BUN Creatinine Ratio 30.7 (10-20); Calcium 8.8 mg/dl (8.5-10.1); Creatinine Clr Calc Pharmacy 72.4 ml/min; Est GFR (African American) 107.7; Est GFR (Non-African American) 92.9; Potassium 4.2 mmol/L (3.5-5.1)
[2019-03-22] MEDS: ALBUT/IPRATROP 3MG/0.5MG NEB 3 ML VIAL NEB SCH ×4 (07:20→19:48)
[2019-03-22] MEDS: NICOTINE 14 MG/24 HR PATCH TD SCH (09:24)
[2019-03-22] MEDS: ALPRAZolam 0.5 MG TABLET PO SCH ×3 (09:26→20:56)
[2019-03-22] MEDS: LEVOFLOXACIN/D5W 500 MG/100 ML BAG IV SCH (12:33)
--- NOTE | 2019-03-22 17:08 | Hospitalist Progress Note ---
Date of Service March 22, 2019 Assessment & Plan (1) Acute respiratory failure with hypoxia: Has gradually been improved, Continue nebulizer treatment, steroids, patient will need to step pulse oximetry prior to discharge home, History of 1-1/2 pack cigarettes a day for last 50 years long conversation regarding smoking cessation -patient is convinced to quit smoking (2) Acute exacerbation of chronic obstructive pulmonary disease (COPD): This is a 59yo M with a PMH of COPD, tobacco use disorder, bipolar disorder, anxiety and other medical problems listed below with presents with cough and shortness of breath x 6 days and was found to have acute respiratory failure with hypoxia and COPD exacerbation. -Initially hypoxic at 87% on room air. Given hour long breathing treatment and is now saturating at 98% on 2L NC -VBG pH of 7.33. No confusion or lethargy. Respiratory status improved -CXR with evidence of emphysema. No focal infiltrate to suggest pneumonia IV Levaquin discontinued -Start tapering down Solu-Medrol -Does not take any home inhalers (albuterol, advair, spiriva) 2/2 cost Will consult social service, and looking to affordable prescription for inhalers (3) Elevated troponin: Mild trop elevation of 0.058 -Likely demand ischemia in setting of acute hypoxic respiratory failure -No chest pain, no history of CAD, EKG with artifact - - No evidence of acute coronary event, patient remained stable, Telemetry discontinued (4) Tobacco use disorder: Interested in smoking cessation. Nicotine patch provided (5) Anxiety: (6) Bipolar disorder: Continue Xanax, Zoloft (7) Chronic pain: Continue home dose [place] 1 tab BID, per home med rec/PDMP (8) H/O: CVA (cerebrovascular accident): Resume baby aspirin -Most recent CVA in May 2018, no deficits (9) Insomnia: Continue home trazodone, Ambien DVT Ppx: SQ heparin Code status: FULL PCP: Joe Dispo: Expect to be discharged home when medically stable Subjective Does not have any audible wheeze, no cough Still requiring supplemental O2 (was not on home oxygen supplement) No fever or chills, No chest pain or dyspnea on exertion Physical Exam Constitutional: + ill appearing and + thin; no acute distress Eyes: PERRL, conjunctivae normal, anicteric sclerae ENMT: external ear and nose normal, oropharynx normal Neck: trachea midline, no thyromegaly Respiratory: normal respiratory effort and + cough; no respiratory distress Auscultation: + rales and + wheezes Cardiovascular: RRR, no murmur, no edema Gastrointestinal (Abdomen): normal bowel sounds, soft, nontender, no hepatosplenomegaly Musculoskeletal: no cyanosis or clubbing, extremities motor strength 5/5 Skin: no rashes, warm and dry Neurologic: PERRL, EOMI, accommodation nl, no face palsy, no dysarthria Psychiatric: A+Ox3, euthymic affect Results & Data Vital Signs (Past 12 Hours) Vital Signs Temp Pulse Pulse Pulse Resp BP Pulse Ox 03/22/19 15:30 36.9 C 74 72 16 161/90 H 93 03/22/19 15:23 74 03/22/19 13:56 78 03/22/19 13:18 37.0 C 73 18 128/79 95 03/22/19 11:14 36.4 C L 67 19 123/87 97 03/22/19 11:07 71 20 96 03/22/19 07:40 36.8 C 64 19 154/86 H 93 03/22/19 07:37 36.8 C 80 22 138/79 97 03/22/19 07:22 77 20 96
[2019-03-22] MEDS: SERTRALINE HCL 100 MG TABLET PO SCH (20:56)
[2019-03-22] MEDS: TRAZODONE HCL 100 MG TAB PO SCH (20:56)
[2019-03-22] MEDS: ZOLPIDEM TARTRATE 10 MG TAB PO SCH (20:56)
[2019-03-23] MEDS: HYDROCODONE/ACETAMINOPHEN 10/325 TAB PO PRN ×3 (03:03→17:03)
[2019-03-23] MEDS: ALBUT/IPRATROP 3MG/0.5MG NEB 3 ML VIAL NEB PRN (03:14)
[2019-03-23] MEDS: TIZANIDINE HCL 4 MG TABLET PO PRN ×2 (05:25→12:47)
[2019-03-23] MEDS: HEPARIN SOD 5,000 UNIT/0.5 ML VIAL SQ SCH ×3 (05:25→20:49)
[2019-03-23] MEDS: methylPREDNISolone 40 MG in SYRINGE 0 ML IV SCH (05:26)
[2019-03-23] MEDS ORDERED: ALPRAZolam 0.5 MG TABLET PO STA (06:10)
[2019-03-23] MEDS: ALPRAZolam 0.5 MG TABLET PO SCH ×3 (06:11→20:55)
[2019-03-23] MEDS: ALBUT/IPRATROP 3MG/0.5MG NEB 3 ML VIAL NEB SCH ×4 (06:22→19:09)
[2019-03-23] MEDS: NICOTINE 14 MG/24 HR PATCH TD SCH (08:36)
[2019-03-23] MEDS ORDERED: IOVERSOL 100ml IV PRN (11:34)
--- NOTE | 2019-03-23 11:48 | CT Scan Report ---
CT OF THE CHEST WITH IV CONTRAST CLINICAL HISTORY: Smoker. Weight loss. Evaluate for pulmonary mass. COMPARISON STUDY: Chest x-ray dated 03/20/2019 TECHNIQUE: Following the IV administration of 94 mL of Optiray-320, CT of the thorax was performed f rom the thoracic inlet to the lung bases. Images are reviewed in the axial, sagittal, and coronal andrew vincent. IV contrast was administered without complication. A dose lowering technique was utilized adher ing to the principles of ALARA. CT DOSE: 415.96 mGy.cm FINDINGS: Thyroid: Imaged portions of the thyroid gland are normal in appearance. Thoracic aorta: The thoracic aorta is normal in course and caliber, noting standard 3-vessel arch allison gonzales. No aneurysm or dissection is seen. Pulmonary vasculature: The pulmonary trunk is normal in caliber. There are no central filling defects identified to suggest pulmonary embolus. Note that this examination was not protocoled for the evalu ation of pulmonary emboli. HEART: The heart is normal in size and configuration, without pericardial effusion. Lungs and pleural spaces: There is severe pulmonary emphysema. There is no focal pulmonary consolidat ion. No endobronchial lesions are visualized. In addition to multiple scattered pulmonary micronodule s, there is a solid 5 mm right lower lobe pleural-based pulmonary nodule is visualized on image #[id number]. A 12 month follow-up is optional. Mediastinum: There is no mediastinal lymphadenopathy. Steffi: Clear. Axilla: Clear. Upper abdomen: Partially visualized upper abdominal viscera is within normal limits. Skeletal structures: Postsurgical changes are present within the cervical spine. There are several mi ld thoracic to body compression deformities. IMPRESSION: 1. Severe pulmonary emphysema 2. No evidence of focal pulmonary consolidation 3. Solid 5 mm right lower lobe subpleural pulmonary nodule. In a high-risk patient a 12 month follow- up is optional. 4. No evidence of pathologic adenopathy Electronically signed by: Dwayne Banuelos M.D. 03/23/2019 11:47 AM
--- NOTE | 2019-03-23 14:35 | Hospitalist Progress Note ---
Date of Service March 23, 2019 Assessment & Plan (1) Acute respiratory failure with hypoxia: Respiratory status has been continues to improve Continue nebulizer treatment, steroids, patient will need to step pulse oximetry prior to discharge home, History of 1-1/2 pack cigarettes a day for last 50 years long conversation regarding smoking cessation -patient is convinced to quit smoking SIGNIFICANT WEIGHT LOSS Report of 40 pound weight loss (unintentional) in last 1 year Patient reports of normal appetite History of chronic heavy smoking CT chest with contrast ordered: Impression: 1. Severe pulmonary emphysema 2. No evidence of focal pulmonary consolidation 3. Solid 5 mm right lower lobe sub-pleural pulmonary nodule. In high risk patient is a 12-month follow-up is optional 4. No evidence of pathologic adenopathy Report of CAT scan updated to patient and patient's Patient had screening colonoscopy 2 years back which was normal Patient will need continued outpatient CT chest surveillance/monitor (2) Acute exacerbation of chronic obstructive pulmonary disease (COPD): This is a 59yo M with a PMH of COPD, tobacco use disorder, bipolar disorder, anxiety and other medical problems listed below with presents with cough and shortness of breath x 6 days and was found to have acute respiratory failure with hypoxia and COPD exacerbation. -Initially hypoxic at 87% on room air. Given hour long breathing treatment and is now saturating at 98% on 2L NC -VBG pH of 7.33. No confusion or lethargy. Respiratory status improved -CXR with evidence of emphysema. No focal infiltrate to suggest pneumonia IV Levaquin discontinued - Transition to p.o. prednisone, -Does not take any home inhalers (albuterol, advair, spiriva) 2/2 co Prescription for inhalers sent to patient's pharmacy Patient's albuterol inhaler 1 month supply co-pay$60 Advair is nonformulary Breo/Ellipta is on formulary per patient's insurance Co-pay $100 Patient is updated regarding the cost (3) Elevated troponin: Mild trop elevation of 0.058 -Likely demand ischemia in setting of acute hypoxic respiratory failure -No chest pain, no history of CAD, EKG with artifact - - No evidence of acute coronary event, patient remained stable, Telemetry discontinued (4) Tobacco use disorder: Interested in smoking cessation. Nicotine patch provided (5) Anxiety: (6) Bipolar disorder: Continue Xanax, Zoloft (7) Chronic pain: Continue home dose Edison 1 tab BID, per home med rec/PDMP (8) H/O: CVA (cerebrovascular accident): Resume baby aspirin -Most recent CVA in May 2018, no deficits (9) Insomnia: Continue home trazodone, Ambien DVT Ppx: SQ heparin Code status: FULL PCP: Joe Dispo: Expect to be discharged home when medically stable Subjective Has minimum shortness of breath no audible wheeze, Fever or chills Physical Exam Constitutional: + ill appearing and + thin; no acute distress Eyes: PERRL, conjunctivae normal, anicteric sclerae ENMT: external ear and nose normal, oropharynx normal Neck: trachea midline, no thyromegaly Respiratory: normal respiratory effort and + cough; no respiratory distress Auscultation: + rales and + wheezes Cardiovascular: RRR, no murmur, no edema Gastrointestinal (Abdomen): normal bowel sounds, soft, nontender, no hepatosplenomegaly Musculoskeletal: no cyanosis or clubbing, extremities motor strength 5/5 Skin: no rashes, warm and dry Neurologic: PERRL, EOMI, accommodation nl, no face palsy, no dysarthria Psychiatric: A+Ox3, euthymic affect Results & Data Vital Signs (Past 12 Hours) Vital Signs Temp Pulse Resp BP Pulse Ox 03/23/19 10:56 56 L 16 96 03/23/19 08:24 36.6 C 76 22 151/87 H 95 03/23/19 06:21 86 18 91 03/23/19 06:19 90 03/23/19 05:00 95 03/23/19 04:00 98 03/23/19 03:15 74 16 94 03/23/19 03:11 91 03/23/19 03:10 87 L
[2019-03-23] MEDS: TRAZODONE HCL 100 MG TAB PO SCH (20:50)
[2019-03-23] MEDS: SERTRALINE HCL 100 MG TABLET PO SCH (20:51)
[2019-03-23] MEDS: ZOLPIDEM TARTRATE 10 MG TAB PO SCH (20:55)
[2019-03-23] MEDS ORDERED: methylPREDNISolone 40 MG in SYRINGE 0 ML IV SCH (21:00)
[2019-03-24] MEDS: HYDROCODONE/ACETAMINOPHEN 10/325 TAB PO PRN ×2 (01:50→08:13)
[2019-03-24] MEDS: HEPARIN SOD 5,000 UNIT/0.5 ML VIAL SQ SCH (06:23)
[2019-03-24] MEDS: ALBUT/IPRATROP 3MG/0.5MG NEB 3 ML VIAL NEB SCH ×2 (06:54→11:21)
[2019-03-24] MEDS: TIZANIDINE HCL 4 MG TABLET PO PRN (06:55)
[2019-03-24] MEDS: ALPRAZolam 0.5 MG TABLET PO SCH (08:13)
[2019-03-24] MEDS: NICOTINE 14 MG/24 HR PATCH TD SCH (08:15)
[2019-03-24] MEDS ORDERED: predniSONE 20 MG TAB PO SCH (09:00)
--- NOTE | 2019-03-24 11:56 | Discharge Summary ---
Date of Service March 24, 2019 Admission HPI Per Admitting Provider This is a 59yo M with a PMH of COPD, tobacco use disorder, bipolar disorder, anxiety and other medical problems listed below with presents with cough and shortness of breath x 6 days. Describes cough as productive with green sputum. Initially had low grade fever that has since resolved. Has been audibly wheezing and has felt short of breath. Called clinic yesterday and was prescribed Z-keshawn and prednisone 40mg, which he took yesterday. SOB has progressed so came to ED today with family at bedside for further evaluation. Denies chills, hemoptysis or chest pain. Has been decreasing cigarette amount and now smokes 1/2 ppd. Is interested in quitting. Does not take any home inhalers (prescribed albuterol, Advair and Spiriva) due to cost. In ED, found to be afebrile and initially hypoxic at 87% on room air. Given hour long breathing treatment and is now saturating at 98% on 2L NC. Does not require home oxygen. Also given IV solu-medrol 125mg in ED and 1 L NSS. Leukocytosis of 17k. Troponin mildly elevated at 0.058. VBG pH of 7.33. CXR with evidence of emphysema. No lightheadedness, visual changes, sore throat, nausea, vomiting, abdominal pain, dysuria, diarrhea, constipation or lower extremity swelling. Principal Diagnosis COPD exacerbation/acute respiratory failure: Resolved/tobacco abuse disorder Discharge Exam Constitutional + ill appearing and + thin; no acute distress Eyes PERRL, conjunctivae normal, anicteric sclerae ENMT external ear and nose normal, oropharynx normal Neck trachea midline, no thyromegaly Respiratory normal respiratory effort and + cough; no respiratory distress Auscultation: + rales and + wheezes Cardiovascular RRR, no murmur, no edema Gastrointestinal (Abdomen) normal bowel sounds, soft, nontender, no hepatosplenomegaly Musculoskeletal no cyanosis or clubbing, extremities motor strength 5/5 Skin no rashes, warm and dry Neurologic PERRL, EOMI, accommodation nl, no face palsy, no dysarthria Psychiatric A+Ox3, euthymic affect Discharge Data Allergies Allergy/AdvReac Type Severity Reaction Status Date / Time No Known Allergies Allergy Unverified 03/20/19 08:55 Consultations 03/20/19 09:10 ED Decision to Admit Stat Ordered Studies 03/23/19 11:09 CT chest w con Routine Hospital Course (1) Acute respiratory failure with hypoxia: Respiratory status has been improved to approximate baseline No wheeze, no cough no fever chills Two-step pulse oximetry test shows patient needs 2 L oxygen on ambulation, prescription for home O2 given Stable to be discharged home today, Patient is discharged home with oral prednisone taper, Albuterol inhaler as needed for wheeze Breo/Ellipta 1 inhalation twice daily for maintenance therapy(formulary in per patient's insurance) History of 1-1/2 pack cigarettes a day for last 50 years long conversation regarding smoking cessation -patient is convinced to quit smoking Requested for nicotine patch on discharge, prescription sent to his pharmacy SIGNIFICANT WEIGHT LOSS Report of 40 pound weight loss (unintentional) in last 1 year Patient reports of normal appetite History of chronic heavy smoking CT chest with contrast ordered: Impression: 1. Severe pulmonary emphysema 2. No evidence of focal pulmonary consolidation 3. Solid 5 mm right lower lobe sub-pleural pulmonary nodule. In high risk patient is a 12-month follow-up is optional 4. No evidence of pathologic adenopathy Report of CAT scan updated to patient and patient's Patient had screening colonoscopy 2 years back which was normal Patient will need continued outpatient CT chest surveillance/monitor Nicotine patch prescription sent to patient's pharmacy (2) Acute exacerbation of chronic obstructive pulmonary disease (COPD): This is a 59yo M with a PMH of COPD, tobacco use disorder, bipolar disorder, anxiety and other medical problems listed below with presents with cough and shortness of breath x 6 days and was found to have acute respiratory failure with hypoxia and COPD exacerbation. -Initially hypoxic at 87% on room air. Given hour long breathing treatment and is now saturating at 98% on 2L NC -VBG pH of 7.33. No confusion or lethargy. Respiratory status improved -CXR with evidence of emphysema. No focal infiltrate to suggest pneumonia IV Levaquin discontinued - Transition to p.o. prednisone, Discharged home on p.o. prednisone taper -Does not take any home inhalers (albuterol, advair, spiriva) 2/2 co Prescription for inhalers sent to patient's pharmacy Patient's albuterol inhaler 1 month supply co-pay$60 Advair is nonformulary Breo/Ellipta is on formulary per patient's insurance Co-pay $100 Patient is updated regarding the cost agreeable for the co-pay cost Prescription for Breo/Ellipta and albuterol inhaler sent to patient's pharmacy (3) Elevated troponin: Mild trop elevation of 0.058 -Likely demand ischemia in setting of acute hypoxic respiratory failure -No chest pain, no history of CAD, EKG with artifact - - No evidence of acute coronary event, patient remained stable, Telemetry discontinued (4) Tobacco use disorder: Interested in smoking cessation. Nicotine patch provided (5) Anxiety: (6) Bipolar disorder: Continue Xanax, Zoloft (7) Chronic pain: Continue home dose [place] 1 tab BID, per home med rec/PDMP (8) H/O: CVA (cerebrovascular accident): Resume baby aspirin -Most recent CVA in May 2018, no deficits (9) Insomnia: Continue home trazodone, Ambien DVT Ppx: SQ heparin Code status: FULL PCP: Joe Dispo: Stable to be discharged home today Hospital follow-up with family physician Dr. Diaz on 03/27/2019 at 1:15 PM Patient will continue to be followed up at pulmonology service at [facility] Total Time Total Time Spent Total Time Spent (In Minutes): approx 40 mins Total Time Includes: Examination of the Patient, Discharge Planning and Medication Reconciliation Discharge Plan Discharge Items Patient Disposition: Home - Self-Care Reason For Visit: COPD EXACERBATION,ACUTE RESP FAILURE Discharge Diagnosis: COPD exacerbation/acute respiratory failure: Resolved/tobacco abuse disorder Activity: Resume your previous activity Non-emergency contact: Primary Care Provider Call non-emergency contact if: you have any medication questions Follow-up/Referrals: Chris Diaz DO [Primary Care Provider] - 03/27/19 1:15 pm Diet: Regular Addtl Attending Provider Instructions: Hospital follow-up with family physician Dr. Diaz on 03/27/2019 at 1:15 PM It is very important for you to quit smoking tobacco to prevent further worsening of your lung function/condition CT chest with IV contrast 03/23/2019: 1. Severe pulmonary emphysema noted 2. Solid 5 mm right lower lobe subpleural pulmonary nodule Repeat CT chest with contrast in 3 months Pending Studies at Discharge: Yes Studies:: CT chest with contrast in 3 months to assess right lower lobe pulmonary nodule Stand-Alone Forms: My [facility] Medications and DC Order Prescriptions: New prednisone 20 mg tablet 20 mg PO UD 6 Days Qty: 6 RF: 0 albuterol sulfate 90 mcg/actuation HFA aerosol inhaler 2 puffs INH QID PRN (Reason: shortness of breath or wheezing) Qty: 18 RF: 3 Breo Ellipta 200-25 mcg/dose blister with device 1 puffs INH DAILY Qty: 60 RF: 3 nicotine 21 mg/24 hr patch 24 hour 1 patch TD DAILY Qty: 28 RF: 4 Continued ipratropium-albuterol 0.5 mg-3 mg(2.5 mg base)/3 mL solution for nebulization 3 ml inhalation Q4 PRN (Reason: Shortness Of Breath) RF: 0 alprazolam [Xanax] 1 mg tablet 1 mg PO TID RF: 0 tizanidine [Zanaflex] 4 mg tablet 4 mg PO TID PRN (Reason: Muscle Spasm) RF: 0 sertraline [Zoloft] 100 mg tablet 200 mg PO QPM RF: 0 hydrocodone-acetaminophen [Prague] 10-325 mg tablet 1 tab PO BID PRN (Reason: Pain) RF: 0 trazodone 150 mg tablet 300 mg PO QPM RF: 0 zolpidem 10 mg tablet 10 mg PO HS RF: 0 Discontinued azithromycin 250 mg tablet 250 mg PO DAILY RF: 0 prednisone 20 mg tablet 40 mg PO DAILY RF: 0 Discharge Orders: Discharge Order (Routine); Ordered 03/24/19 Ordered By: Sandi Benedict Admission Data Admit Date/Time: 03/20/19 10:01 Attending Provider: Sandi Benedict Admit Provider: Jorge L Almodovar Primary Care Provider: Chris Diaz Other Providers: Jorge L Almodovar ; Tao Blount Other Interventions: Discharge Summary Assessment (RN) Last Done: 03/24/19 12:11 DC Date/Time DO NOT enter until pt leaves facility: 03/24/19 13:10
== END 2019-03-24 13:10 | disposition home or self-care (01) | DRG 189 ==
LOC: ED 07:52 → SUATTDRO 10:01 → 2S 10:01 → 2N 03-22 13:10

== ENCOUNTER 2019-11-27 18:00 | Inpatient (IN) ==
[~2019-11-27 18:00] MED LIST: ROCURONIUM BROMIDE 10 MG/ML 5 ML VIAL IV ONE
[2019-11-27] MEDS ORDERED: NALOXONE HCL 0.4 MG/1 ML VIAL/CARP IV STA (18:05)
[2019-11-27] MEDS ORDERED: SODIUM CHLORIDE 0.9% 1000ML 1,000 ML IV ONE (18:05)
[2019-11-27] MEDS ORDERED: CEFEPIME 2,000 MG/20 ML VIAL IV STA (18:05)
--- NOTE | 2019-11-27 18:10 | Emergency Department Note ---
Impression & Plan Respiratory arrest, COPD (chronic obstructive pulmonary disease), Elevated troponin, Overdose of analgesic ED Provider Note NAME: ZE BO AGE: 59 SEX: M : 1960 ARRIVES VIA: Ambulance INFORMANT: Patient, ED PROVIDER(S): Rafa Mobley MD Chief Complaint: Respiratory arrest, cardiac arrest HPI: Patient does present via EMS. History is limited secondary to clinical condition and intubation. The patient reportedly suffered some sort of cardiac arrest and upon arrival with an AED tap and die maker technician noted the patient did have a pulse. No shocks were advised or given. tap and die maker technician did think the patient may have been in A. fib. The patient was subsequently intubated. Patient does have a known history of COPD. No concerns for drugs but the patient does take hydrocodone based on the patient's med list. No concerns for trauma. Per tap and die maker technician they did not relate whether or not the patient has had any symptoms of COVID. Initial exam the patient does have pinpoint pupils decreased breath sounds in the left side the patient is currently debated was half and half ET tube. Numerous tattoos over the body and the patient does not move to stimulation. Patient's BSG prior to arrival was 97 patient currently 100% on supplemental oxygen via endotracheal tube. ROS: Unable to obtain secondary to clinical acuity and intubation. Past medical history: See below Surgical history: See below Social history: See below Physical Exam: GENERAL: Severe distress, intubated. EYE EXAM: Normal conjunctiva. Pinpoint pupils nonreactive. Oropharynx: Patient intubated with 7/2 ET tube at approximately 26 at the teeth. NECK: Supple, no nuchal rigidity, no adenopathy, non-tender. Trachea midline no crepitus. Chest: Mild crepitus over the left chest LUNGS: BVM breaths being given decreased breath sounds left side. HEART: Cardiac tach and regular, no MRG. ABDOMEN: Abdomen soft, non-tender, normo-active bowel sounds, no masses, no rebound or guarding. BACK: No CVA TTP. SKIN: No rashes and no bruising. Numerous tattoos noted. UPPER EXTREMITIES: Upper extremities are grossly normal. LOWER EXTREMITIES: Grossly normal, no edema. NEURO EXAM: GCS 3 T Differential diagnoses: Reactive airway disease, pneumonia, pneumothorax, COPD, CHF, infections, cardiac ischemia, pulmonary embolism, musculoskeletal, gastrointestinal, as well as other pathologies. Course: Patient was seen and evaluated the bedside. Full history physical exam was performed. EKG: Indication: Respiratory arrest Normal sinus rhythm, rate of 60, normal intervals, normal axis, nonspecific ST abnormality without significant change comparison EKG March 20, 2019 Imaging Studies: Radiology results as stated below per my review in the radiologist's interpretation: XR chest 1V portable CLINICAL HISTORY: SEPSIS COMPARISON STUDY: March 20, 2019 FINDINGS: The heart is normal in size. There is aortic tortuosity. There is no focal pulmonary consolidation. There is pulmonary emphysema. There is mild upper lobe interstitial thickening.[No pleural effusions are visualized. IMPRESSION: 1. Pulmonary emphysema with mild nonspecific upper lung zone predominant interstitial thickening 2. No evidence of lobar consolidation ACT 112: Negative or not required by law. Electronically signed by: Dwayne Banuelos M.D. 11/27/2019 6:19 PM Dictated: 11/27/191816 Transcribed: 11/27/191816 CT head/brain wo con CLINICAL HISTORY: Unresponsive patient. PATIENT INTUBATED COMPARISON STUDY: No previous studies for comparison. TECHNIQUE: Axial CT of the brain is performed from the vertex to the skull base. IV contrast was not administered for this examination. A dose lowering technique was utilized adhering to the principles of ALARA. CT DOSE: 821.00 mGycm FINDINGS: No intra or extra-axial mass lesions are visualized. There is no CT evidence of acute cortical infarction. There is no evidence of midline shift. There is no acute hemorrhage. No calvarial fractures are visualized. There is a right frontal hypodensity. This potentially is artifactual. If the patient's neurological condition does not improve, an MRI could be obtained in follow-up. There is no evidence of pathologic ventricular dilatation. There is no evidence of acute sinusitis IMPRESSION: 1. Nonspecific right frontal lobe hypodensity, potentially artifactual. If the patient's neurological condition does not improve, an MRI could be obtained in follow-up. 2. No evidence of acute hemorrhage. ACT 112: Negative or not required by law. Electronically signed by: Dwayne Banuelos M.D. 11/27/2019 7:18 PM Dictated: 11/27/191914 Transcribed: 11/27/191914 XR chest 1V portable CLINICAL HISTORY: Respiratory failure. Intubation. COMPARISON STUDY: 11/27/2019 FINDINGS: The cardiac and mediastinal contours remain stable. There is pulmonary emphysema. There is no lobar consolidation. There are no pleural effusions. Postsurgical changes are present within the cervical spine. There is equivocal visualization of the tip of an endotracheal tube which is positioned 11 cm above the danny.[ IMPRESSION: Equivocal visualization of the tip of an endotracheal tube which is positioned 11 cm above the danny ACT 112: Negative or not required by law. Electronically signed by: Dwayne Banuelos M.D. 11/27/2019 6:43 PM Dictated: 11/27/191841 Transcribed: 11/27/191841 XR chest 1V portable CLINICAL HISTORY: Respiratory failure. Advancement of endotracheal tube. COMPARISON STUDY: Earlier in the evening FINDINGS: The cardiac and mediastinal contours remain stable. There is radiographic evidence of emphysema. There is no focal pulmonary consolidation. There are no pleural effusions. There is an endotracheal tube 5 cm above the danny. There is a gas distended esophagus.[ IMPRESSION: Endotracheal tube 5 cm above the danny. Suspected gaseous distention of the esophagus. ACT 112: Negative or not required by law. Electronically signed by: Dwayne Banuelos M.D. 11/27/2019 7:06 PM Dictated: 11/27/191902 Transcribed: 11/27/191902 Cardiac monitoring: An order was placed for continuous cardiac monitoring. The monitor shows a rate of 59 with sinus rhythm. Procedure: Endotracheal Intubation Indication: Repeat evaluation of current tube and bougie placement to advance the tube. The patient was on 100% oxygen his endotracheal tube prior to the procedure. Suction, airway equipment, RSI drugs, respiratory equipment, and appropriate personnel were prepared prior to the initiation of the procedure. Patient did receive his RSI drugs. Induction was performed with fentanyl, Ativan, and propofol and subsequent rocuronium for paralyzation. After observing the clinical benefit of the medications, the airway was reinspected with a glide scope a bougie was placed the cuff was deflated on the current seven 1/2 ET tube and a 7/2 ET tube was advanced to the appropriate position beyond the cords with the cuff reinsufflated with the ET tube at 25 cm. The cuff inflated without signs of malfunction. There were bilateral breath sounds, positive colormetric change, no gastric sounds, a good capnography waveform, and post pr ocedure pulse oximetry was 100%. Post intubation sedation and paralysis was administered using Propofol. There were no complications. MDM: Patient was seen and evaluated the bedside. Patient was intubated. Patient does have decreased breath sounds in left side but was satting in 100%. Patient did have blood work completed was given Narcan given the pinpoint pupils and subsequent hydrocodone use. CT the head was also obtained along with EKG blood cultures IV fluids and a Wagoner catheter was placed. Patient's blood work did show white count. The patient did begin cefepime. Very mild elevation in lactate as well as is the patient's troponin. EKG without acute changes. Believe this may have been due to to the patient CPR and chest compressions. The patient's ET tube was not present on the initial presentation x-ray and subsequently thereafter to try to advance but still did not see the ET tube. The patient had been given Narcan and the patient was fairly agitated. The patient did receive subsequent Ativan and and fentanyl and was subsequently given paralytic and sedation with dipper Van and rocuronium given the concern for maintaining his endotracheal tube. Patient never had any hypoxia. Once the patient was more comfortable and sedated I subsequently did a repeat visualization with a glide scope and noticed that the patient's breathing tube was essentially cuffed at or above the cords but maintaining placement and providing an adequate airway for oxygenation/ventilation. With suction, backup tube and all materials for a reintubation and RT at the bedside; the posterior pharynx and hypopharynx was vigorously suctioned with view of the ET tube. I subsequently did have the ET tube disconnected at which point a bougie was placed down the tube in order to ensure adequate placement. The cuff was subsequently deflated and the tracheal tube was advanced to a more appropriate position as I did visualize it going beyond the cords and the cuff was reinsufflated. Repeat chest x-ray does show that the endotracheal tube is in appropriate position. CT showed a possible abnormality which could have been artifactual. When patient did receive Narcan the patient was able to move all 4 extremities but the patient was not following commands at that time. Patient subsequently did receive glucose as his initial was 60 and prior to admission recheck of his glucose was greater than 200. A bear hugger had also been placed for warmth as the patient was slightly hypothermic. There was mild crepitus over the left chest likely secondary to the patient's CPR that had been administered and possible rib fractures nothing overtly obvious on his initial chest x-rays. Patient was satting at 100%. I did speak with the on-call hospitalist as well as the on-call tow car driver to come evaluated the patient. I did subsequently speak with the patient's spouse who was at the bedside. The patient was subsequently mated to the medicine service in the ICU. Critical Care: I have personally spent 120 minutes of critical care time in direct management of this patient. This includes bedside care, interpretation of diagnostic studies, and testing, discussion with consultants, patient, and family members, and other require inpatient management activities. This 120 minutes is in excess of all separately billable procedures. Past Med/Surg History Medical History Anxiety (Chronic) Bipolar disorder (Chronic) Chronic pain (Chronic) COPD (chronic obstructive pulmonary disease) (Chronic) H/O: CVA (cerebrovascular accident) (Chronic) Tobacco use disorder (Chronic) Surgical History History of cervical spinal surgery (Chronic) History of hip surgery (Chronic) Family History Other Heart disease Social History Preferred Language: Bulgarian Communication Ability: Effective Data Management Manager Required: No Beliefs That Will Affect Care: None Current Living Situation: Spouse Other Information That Helps Us Care for You: No Feels Safe at Home: Declines to Answer Smoking Status: Current every day smoker Tobacco Type: cigarettes ; Cigarettes Per Day: 10 ; Second Hand Exposure: Yes ; Tobacco Cessation Education Requested by Patient: No Hx Alcohol Use: No Hx Substance Use: No Allergies Allergies Allergy/AdvReac Type Severity Reaction Status Date / Time No Known Allergies Allergy Unverified 03/20/19 08:55 Home Meds Home Medications Medication Instructions Recorded Confirmed alprazolam [Xanax] 1 mg PO TID 03/20/19 11/27/19 hydrocodone-acetaminophen [Ludell] 1 tab PO BID 03/20/19 11/27/19 ipratropium-albuterol 3 ml INHALATION Q4 PRN 03/20/19 11/27/19 sertraline [Zoloft] 200 mg PO QPM 03/20/19 11/27/19 tizanidine [Zanaflex] 4 mg PO TID PRN 03/20/19 11/27/19 aspirin [Aspir-81] 81 mg PO DAILY 11/27/19 11/27/19 mirtazapine 15 mg PO HS 11/27/19 11/27/19 Previous Rx's Medication Instructions Recorded albuterol sulfate 2 puffs INH QID PRN #18 gm 03/23/19 Results & Data (ED) Home Medications Current Medication List: was personally reviewed by me Laboratory Data Attestation: I reviewed the patient's lab results. Result diagrams: 11/29/19 04:27 11/29/19 04:27 Lab Results 11/27/19 11/27/19 11/27/19 Range/Units 18:13 18:13 18:13 WBC 17.02 H (4.8-10.8) K/uL RBC 4.26 L (4.7-6.1) M/uL Hgb 13.3 L (14.0-18.0) g/dL Hct 40.9 L (42-52) % MCV 96.0 (80-100) fL MCH 31.2 (25-34) pg MCHC 32.5 (32-36) g/dL RDW Std Deviation 44.2 (36.4-46.3) fL RDW Coeff of Mani 12.8 (11.5-14.5) % Plt Count 206 (130-400) K/uL MPV 10.8 H (7.4-10.4) fL Immature Gran % (Auto) 0.9 % Neut % (Auto) 78.4 % Lymph % (Auto) 11.3 % Dare % (Auto) 8.3 % Eos % (Auto) 0.9 % Baso % (Auto) 0.2 % Immature Gran # (Auto) 0.15 H (0.00-0.02) K/uL Neut # (Auto) 13.34 H (1.4-6.5) K/uL Lymph # (Auto) 1.93 (1.2-3.4) K/uL Dare # (Auto) 1.41 H (0.11-0.59) K/uL Eos # (Auto) 0.15 (0-0.5) K/uL Baso # (Auto) 0.04 (0-0.2) K/uL PT 10.8 (9.0-12.0) Seconds INR 1.0 (0.9-1.1) APTT 30.3 (21.0-31.0) Seconds PTT Ratio 1.1 D-Dimer (0-500) ug/L FEU VBG pH (7.36-7.41) VBG pCO2 (38-50) mmHg VBG pO2 mmHg VBG HCO3 mmol/L VBG O2 Saturation % VBG Base Excess mEq/L Barometric Pressure mm/Hg Sodium (136-145) mmol/L Potassium (3.5-5.1) mmol/L Chloride (98-107) mmol/L Carbon Dioxide (21-32) mmol/L Anion Gap (3-11) BUN (7-18) mg/dl Creatinine (0.6-1.4) mg/dl Est Cr Clr Drug Dosing ml/min Est GFR ( Amer) Est GFR (Non-Af Amer) BUN/Creatinine Ratio (10-20) Glucose (70-99) mg/dl Lactate (0.4-2.0) mmol/L Calcium (8.5-10.1) mg/dl Magnesium (1.8-2.4) mg/dl Total Bilirubin (0.2-1) mg/dl AST (15-37) U/L ALT (12-78) U/L Alkaline Phosphatase (45-117) U/L Troponin I (0-0.045) ng/ml Total Protein (6.4-8.2) gm/dl Albumin (3.4-5.0) gm/dl Globulin (2.5-4.0) gm/dl Albumin/Globulin Ratio (0.9-2) Procalcitonin 0.08 (0-0.5) ng/ml Urine Color Urine Appearance (Clear) Urine pH (4.5-7.5) Ur Specific [place] (1.000-1.030) Urine Protein (Negative) Urine Glucose (UA) (Negative) Urine Ketones (Negative) Urine Blood (Negative) Urine Nitrite (Negative) Urine Bilirubin (Negative) Urine Urobilinogen (Negative) Ur Leukocyte Esterase (Negative) Urine WBC (Auto) (0-5) /hpf Urine RBC (Auto) (0-4) /hpf U Hyaline Cast (Auto) (0-5) /lpf U Epithel Cells (Auto) (0-5) /lpf Urine Bacteria (Auto) (Negative) Ur Renal Epithelial Cell Urine Opiates Screen (Neg) Ur Methadone, Qual (Neg) Urine Barbiturates (Neg) Ur Phencyclidine (PCP) (Neg) U Amphetamin/Meth Scrn (Neg) MDMA (Ecstasy) Screen (Neg) U Benzodiazepines Scrn (Neg) Ur Cocaine Metabolite (Neg) U Marijuana (THC) Screen (Neg) Ethyl Alcohol mg/dL (0-3) mg/dl 11/27/19 11/27/19 11/27/19 Range/Units 18:13 18:13 18:14 WBC (4.8-10.8) K/uL RBC (4.7-6.1) M/uL Hgb (14.0-18.0) g/dL Hct (42-52) % MCV (80-100) fL MCH (25-34) pg MCHC (32-36) g/dL RDW Std Deviation (36.4-46.3) fL RDW Coeff of Mani (11.5-14.5) % Plt Count (130-400) K/uL MPV (7.4-10.4) fL Immature Gran % (Auto) % Neut % (Auto) % Lymph % (Auto) % Dare % (Auto) % Eos % (Auto) % Baso % (Auto) % Immature Gran # (Auto) (0.00-0.02) K/uL Neut # (Auto) (1.4-6.5) K/uL Lymph # (Auto) (1.2-3.4) K/uL Dare # (Auto) (0.11-0.59) K/uL Eos # (Auto) (0-0.5) K/uL Baso # (Auto) (0-0.2) K/uL PT (9.0-12.0) Seconds INR (0.9-1.1) APTT (21.0-31.0) Seconds PTT Ratio D-Dimer (0-500) ug/L FEU VBG pH (7.36-7.41) VBG pCO2 (38-50) mmHg VBG pO2 mmHg VBG HCO3 mmol/L VBG O2 Saturation % VBG Base Excess mEq/L Barometric Pressure mm/Hg Sodium 138 (136-145) mmol/L Potassium 4.0 (3.5-5.1) mmol/L Chloride 101 (98-107) mmol/L Carbon Dioxide 35 H (21-32) mmol/L Anion Gap 2.0 L (3-11) BUN 11 (7-18) mg/dl Creatinine 1.59 H (0.6-1.4) mg/dl Est Cr Clr Drug Dosing 47.9 ml/min Est GFR ( Amer) 53.9 Est GFR (Non-Af Amer) 46.5 BUN/Creatinine Ratio 6.9 L (10-20) Glucose 60 L (70-99) mg/dl Lactate 2.7 H* (0.4-2.0) mmol/L Calcium 8.4 L (8.5-10.1) mg/dl Magnesium 2.5 H (1.8-2.4) mg/dl Total Bilirubin 0.2 (0.2-1) mg/dl AST 19 (15-37) U/L ALT 22 (12-78) U/L Alkaline Phosphatase 92 (45-117) U/L Troponin I 0.075 H* (0-0.045) ng/ml Total Protein 7.2 (6.4-8.2) gm/dl Albumin 3.2 L (3.4-5.0) gm/dl Globulin 4.0 (2.5-4.0) gm/dl Albumin/Globulin Ratio 0.8 L (0.9-2) Procalcitonin (0-0.5) ng/ml Urine Color Urine Appearance (Clear) Urine pH (4.5-7.5) Ur Specific [place] (1.000-1.030) Urine Protein (Negative) Urine Glucose (UA) (Negative) Urine Ketones (Negative) Urine Blood (Negative) Urine Nitrite (Negative) Urine Bilirubin (Negative) Urine Urobilinogen (Negative) Ur Leukocyte Esterase (Negative) Urine WBC (Auto) (0-5) /hpf Urine RBC (Auto) (0-4) /hpf U Hyaline Cast (Auto) (0-5) /lpf U Epithel Cells (Auto) (0-5) /lpf Urine Bacteria (Auto) (Negative) Ur Renal Epithelial Cell Urine Opiates Screen (Neg) Ur Methadone, Qual (Neg) Urine Barbiturates (Neg) Ur Phencyclidine (PCP) (Neg) U Amphetamin/Meth Scrn (Neg) MDMA (Ecstasy) Screen (Neg) U Benzodiazepines Scrn (Neg) Ur Cocaine Metabolite (Neg) U Marijuana (THC) Screen (Neg) Ethyl Alcohol mg/dL < 3.0 (0-3) mg/dl 11/27/19 11/27/19 11/27/19 Range/Units 19:27 19:27 20:16 WBC (4.8-10.8) K/uL RBC (4.7-6.1) M/uL Hgb (14.0-18.0) g/dL Hct (42-52) % MCV (80-100) fL MCH (25-34) pg MCHC (32-36) g/dL RDW Std Deviation (36.4-46.3) fL RDW Coeff of Mani (11.5-14.5) % Plt Count (130-400) K/uL MPV (7.4-10.4) fL Immature Gran % (Auto) % Neut % (Auto) % Lymph % (Auto) % Dare % (Auto) % Eos % (Auto) % Baso % (Auto) % Immature Gran # (Auto) (0.00-0.02) K/uL Neut # (Auto) (1.4-6.5) K/uL Lymph # (Auto) (1.2-3.4) K/uL Dare # (Auto) (0.11-0.59) K/uL Eos # (Auto) (0-0.5) K/uL Baso # (Auto) (0-0.2) K/uL PT (9.0-12.0) Seconds INR (0.9-1.1) APTT (21.0-31.0) Seconds PTT Ratio D-Dimer (0-500) ug/L FEU VBG pH 7.11 L (7.36-7.41) VBG pCO2 111 H (38-50) mmHg VBG pO2 26 mmHg VBG HCO3 34 mmol/L VBG O2 Saturation < 60.0 % VBG Base Excess 2.2 mEq/L Barometric Pressure 728.0 mm/Hg Sodium (136-145) mmol/L Potassium (3.5-5.1) mmol/L Chloride (98-107) mmol/L Carbon Dioxide (21-32) mmol/L Anion Gap (3-11) BUN (7-18) mg/dl Creatinine (0.6-1.4) mg/dl Est Cr Clr Drug Dosing ml/min Est GFR ( Amer) Est GFR (Non-Af Amer) BUN/Creatinine Ratio (10-20) Glucose (70-99) mg/dl Lactate (0.4-2.0) mmol/L Calcium (8.5-10.1) mg/dl Magnesium (1.8-2.4) mg/dl Total Bilirubin (0.2-1) mg/dl AST (15-37) U/L ALT (12-78) U/L Alkaline Phosphatase (45-117) U/L Troponin I (0-0.045) ng/ml Total Protein (6.4-8.2) gm/dl Albumin (3.4-5.0) gm/dl Globulin (2.5-4.0) gm/dl Albumin/Globulin Ratio (0.9-2) Procalcitonin (0-0.5) ng/ml Urine Color Yellow Urine Appearance Clear (Clear) Urine pH 5.0 (4.5-7.5) Ur Specific [place] 1.014 (1.000-1.030) Urine Protein 1+ H (Negative) Urine Glucose (UA) Negative (Negative) Urine Ketones Negative (Negative) Urine Blood Trace H (Negative) Urine Nitrite Negative (Negative) Urine Bilirubin Negative (Negative) Urine Urobilinogen Negative (Negative) Ur Leukocyte Esterase Negative (Negative) Urine WBC (Auto) 1-5 (0-5) /hpf Urine RBC (Auto) 0-4 (0-4) /hpf U Hyaline Cast (Auto) 10-30 H (0-5) /lpf U Epithel Cells (Auto) >30 H (0-5) /lpf Urine Bacteria (Auto) Negative (Negative) Ur Renal Epithelial Cell Not Reportable Urine Opiates Screen Neg (Neg) Ur Methadone, Qual Pos H (Neg) Urine Barbiturates Neg (Neg) Ur Phencyclidine (PCP) Neg (Neg) U Amphetamin/Meth Scrn Neg (Neg) MDMA (Ecstasy) Screen Pos H (Neg) U Benzodiazepines Scrn Pos H (Neg) Ur Cocaine Metabolite Neg (Neg) U Marijuana (THC) Screen Neg (Neg) Ethyl Alcohol mg/dL (0-3) mg/dl 11/27/19 11/27/19 Range/Units 20:16 20:16 WBC (4.8-10.8) K/uL RBC (4.7-6.1) M/uL Hgb (14.0-18.0) g/dL Hct (42-52) % MCV (80-100) fL MCH (25-34) pg MCHC (32-36) g/dL RDW Std Deviation (36.4-46.3) fL RDW Coeff of Mani (11.5-14.5) % Plt Count (130-400) K/uL MPV (7.4-10.4) fL Immature Gran % (Auto) % Neut % (Auto) % Lymph % (Auto) % Dare % (Auto) % Eos % (Auto) % Baso % (Auto) % Immature Gran # (Auto) (0.00-0.02) K/uL Neut # (Auto) (1.4-6.5) K/uL Lymph # (Auto) (1.2-3.4) K/uL Dare # (Auto) (0.11-0.59) K/uL Eos # (Auto) (0-0.5) K/uL Baso # (Auto) (0-0.2) K/uL PT (9.0-12.0) Seconds INR (0.9-1.1) APTT (21.0-31.0) Seconds PTT Ratio D-Dimer 3710 H* (0-500) ug/L FEU VBG pH (7.36-7.41) VBG pCO2 (38-50) mmHg VBG pO2 mmHg VBG HCO3 mmol/L VBG O2 Saturation % VBG Base Excess mEq/L Barometric Pressure mm/Hg Sodium (136-145) mmol/L Potassium (3.5-5.1) mmol/L Chloride (98-107) mmol/L Carbon Dioxide (21-32) mmol/L Anion Gap (3-11) BUN (7-18) mg/dl Creatinine (0.6-1.4) mg/dl Est Cr Clr Drug Dosing ml/min Est GFR ( Amer) Est GFR (Non-Af Amer) BUN/Creatinine Ratio (10-20) Glucose (70-99) mg/dl Lactate 1.9 (0.4-2.0) mmol/L Calcium (8.5-10.1) mg/dl Magnesium (1.8-2.4) mg/dl Total Bilirubin (0.2-1) mg/dl AST (15-37) U/L ALT (12-78) U/L Alkaline Phosphatase (45-117) U/L Troponin I (0-0.045) ng/ml Total Protein (6.4-8.2) gm/dl Albumin (3.4-5.0) gm/dl Globulin (2.5-4.0) gm/dl Albumin/Globulin Ratio (0.9-2) Procalcitonin (0-0.5) ng/ml Urine Color Urine Appearance (Clear) Urine pH (4.5-7.5) Ur Specific [place] (1.000-1.030) Urine Protein (Negative) Urine Glucose (UA) (Negative) Urine Ketones (Negative) Urine Blood (Negative) Urine Nitrite (Negative) Urine Bilirubin (Negative) Urine Urobilinogen (Negative) Ur Leukocyte Esterase (Negative) Urine WBC (Auto) (0-5) /hpf Urine RBC (Auto) (0-4) /hpf U Hyaline Cast (Auto) (0-5) /lpf U Epithel Cells (Auto) (0-5) /lpf Urine Bacteria (Auto) (Negative) Ur Renal Epithelial Cell Urine Opiates Screen (Neg) Ur Methadone, Qual (Neg) Urine Barbiturates (Neg) Ur Phencyclidine (PCP) (Neg) U Amphetamin/Meth Scrn (Neg) MDMA (Ecstasy) Screen (Neg) U Benzodiazepines Scrn (Neg) Ur Cocaine Metabolite (Neg) U Marijuana (THC) Screen (Neg) Ethyl Alcohol mg/dL (0-3) mg/dl Administered Medications Acetaminophen (Tylenol) 650 mg PO Q4H PRN PRN Reason: Pain or Fever Stop: 12/28/19 13:17 Last Admin: 11/29/19 07:17 Dose: 650 mg Documented by: [id number] Admin: 11/28/19 16:24 Dose: 650 mg Documented by: [id number] Albuterol (Duoneb) 3 ml NEB Q6R [facility] Stop: 12/29/19 09:44 Last Admin: 11/29/19 09:49 Dose: 3 ml Documented by: [id number] Budesonide (Pulmicort Respules) 0.5 mg NEB BIDR [facility] Stop: 12/29/19 07:29 Last Admin: 11/29/19 07:38 Dose: 0.5 mg Documented by: [id number] Formoterol Fumarate (Perforomist) 20 mcg NEB BIDR [facility] Stop: 12/29/19 07:29 Last Admin: 11/29/19 07:38 Dose: 20 mcg Documented by: [id number] Guaifenesin (Mucinex) 600 mg PO Q12 [facility] Stop: 12/29/19 09:59 Last Admin: 11/29/19 10:17 Dose: 600 mg Documented by: [id number] Heparin Sodium (Porcine) (Heparin Sodium (Porcine)) 5,000 units SQ Q12 [facility] Stop: 12/28/19 20:59 Last Admin: 11/29/19 07:18 Dose: 5,000 units Documented by: [id number] Cosigned by: [id number] Admin: 11/28/19 20:08 Dose: 5,000 units Documented by: [id number] Cosigned by: [id number] Vancomycin HCl 1,000 mg/ (Sodium Chloride) 270 mls @ 125 mls/hr IV Q12H [facility] Stop: 12/04/19 23:59 Last Infusion: 11/29/19 09:30 Dose: 0 mls/hr Documented by: [id number] Admin: 11/29/19 07:20 Dose: 125 mls/hr Documented by: [id number] Levofloxacin/Dextrose (Levaquin/D5w) 750 mg in 150 mls @ 100 mls/hr IV Q24H [facility] Stop: 12/03/19 13:29 Last Infusion: 11/29/19 11:46 Dose: 0 mls/hr Documented by: [id number] Admin: 11/29/19 10:21 Dose: 100 mls/hr Documented by: [id number] Ioversol (Optiray 320 125ml) 118 ml IV ONCE PRN PRN Reason: Interaction Checking Stop: 12/01/19 21:31 Last Admin: 11/27/19 21:33 Dose: 1 ml Documented by: [id number] Oxycodone HCl (Roxicodone Immediate Rel) 5 mg PO Q12H PRN PRN Reason: Pain Stop: 12/12/19 14:17 Last Admin: 11/29/19 05:00 Dose: 5 mg Documented by: [id number] Admin: 11/28/19 20:07 Dose: 5 mg Documented by: [id number] Discontinued Medications Albuterol (Duoneb) 3 ml NEB Q6R [facility] Stop: 12/27/19 22:29 Last Admin: 11/28/19 13:13 Dose: Not Given Documented by: [id number] Admin: 11/28/19 07:42 Dose: 3 ml Documented by: [id number] Admin: 11/28/19 01:04 Dose: 3 ml Documented by: [id number] Admin: 11/27/19 22:25 Dose: 3 ml Documented by: [id number] Albuterol (Duoneb) 3 ml NEB Q3H PRN PRN Reason: Bronchospasm Stop: 12/28/19 13:09 Last Admin: 11/29/19 04:12 Dose: 3 ml Documented by: [id number] Admin: 11/28/19 17:25 Dose: 3 ml Documented by: [id number] Alprazolam (Xanax) Confirm Administered Dose 0.5 mg .ROUTE .STK-MED ONE Stop: 11/29/19 04:59 Last Admin: 11/29/19 05:00 Dose: 0.5 mg Documented by: [id number] Dextrose (Dextrose 50%) 50 ml IV NOW ONE Stop: 11/27/19 20:13 Last Admin: 11/27/19 20:21 Dose: 50 ml Documented by: [id number] Dextrose (Dextrose 50%) 50 ml IV NOW ONE Stop: 11/27/19 20:41 Last Admin: 11/27/19 20:47 Dose: Not Given Documented by: [id number] Fentanyl Citrate (Fentanyl Citrate) Confirm Administered Dose 100 mcg .ROUTE .STK-MED ONE Stop: 11/27/19 18:20 Last Admin: 11/27/19 18:21 Dose: 100 mcg Documented by: [id number] Fentanyl Citrate (Fentanyl Citrate) Confirm Administered Dose 100 mcg .ROUTE .STK-MED ONE Stop: 11/27/19 21:10 Last Increment: 11/27/19 21:24 Dose: 50 mcg Documented by: [id number] Increment: 11/27/19 21:11 Dose: 50 mcg Documented by: [id number] Fentanyl Citrate (Fentanyl Citrate) 50 mcg IV NOW STA Stop: 11/27/19 21:11 Last Admin: 11/27/19 22:09 Dose: Not Given Documented by: [id number] Fluticasone/Vilanterol (Breo Ellipta 200/25 Mcg Inh) 1 puffs INH DAILY LINDA Stop: 12/28/19 08:59 Last Admin: 11/28/19 07:47 Dose: Not Given Documented by: [id number] Heparin Sodium (Porcine) (Heparin Sodium (Porcine)) 5,000 units SQ .EXTRA DOSE ONE Stop: 11/28/19 10:31 Last Admin: 11/28/19 12:53 Dose: 5,000 units Documented by: [id number] Cosigned by: [id number] Sodium Chloride (Nss 1000ml) 1,000 mls @ 999 mls/hr IV .Q1H1M ONE Stop: 11/27/19 19:05 Last Infusion: 11/27/19 19:15 Dose: 0 mls/hr Documented by: [id number] Admin: 11/27/19 18:14 Dose: 999 mls/hr Documented by: [id number] Cefepime HCl (Maxipime) 2,000 mg in 20 mls @ 5 mls/min IV NOW [facility]; Protocol Stop: 11/27/19 18:08 Last Admin: 11/27/19 18:28 Dose: 5 mls/min Documented by: [id number] Propofol (Diprivan) 1,000 mg in 100 mls @ 2.055 mls/hr IV .Q24H LINDA; Protocol Stop: 11/30/19 18:44 Last Titration: 11/27/19 23:33 Dose: 0 mcg/kg/min, 0 mls/hr Documented by: [id number] Titration: 11/27/19 23:28 Dose: 0 mcg/kg/min, 0 mls/hr Documented by: [id number] Admin: 11/27/19 18:36 Dose: 5 mcg/kg/min, 2.1 mls/hr Documented by: [id number] Cosigned by: [id number] Norepinephrine Bitartrate 8 mg (/ Dextrose) 508 mls @ 0 mls/hr IV .Q0M LINDA; Protocol Stop: 12/27/19 20:29 Last Titration: 11/28/19 10:26 Dose: 0 mcg/kg/min, 0 mls/hr Documented by: [id number] Titration: 11/28/19 07:47 Dose: 0 mcg/kg/min, 0 mls/hr Documented by: [id number] Titration: 11/28/19 07:19 Dose: 0.05 mcg/kg/min, 13 mls/hr Documented by: [id number] Cosigned by: [id number] Titration: 11/28/19 05:51 Dose: 0.05 mcg/kg/min, 13 mls/hr Documented by: [id number] Titration: 11/28/19 04:05 Dose: 0.15 mcg/kg/min, 39.1 mls/hr Documented by: [id number] Titration: 11/28/19 01:50 Dose: 0.25 mcg/kg/min, 65.2 mls/hr Documented by: [id number] Titration: 11/28/19 00:35 Dose: 0.41 mcg/kg/min, 107 mls/hr Documented by: [id number] Titration: 11/28/19 00:30 Dose: 0.39 mcg/kg/min, 101.8 mls/hr Documented by: [id number] Titration: 11/28/19 00:25 Dose: 0.37 mcg/kg/min, 96.6 mls/hr Documented by: [id number] Titration: 11/28/19 00:20 Dose: 0.35 mcg/kg/min, 91.3 mls/hr Documented by: [id number] Titration: 11/28/19 00:15 Dose: 0.33 mcg/kg/min, 86.1 mls/hr Documented by: [id number] Titration: 11/28/19 00:10 Dose: 0.31 mcg/kg/min, 80.9 mls/hr Documented by: [id number] Titration: 11/28/19 00:05 Dose: 0.29 mcg/kg/min, 75.7 mls/hr Documented by: [id number] Titration: 11/28/19 00:00 Dose: 0.27 mcg/kg/min, 70.5 mls/hr Documented by: [id number] Titration: 11/27/19 23:55 Dose: 0.25 mcg/kg/min, 65.2 mls/hr Documented by: [id number] Titration: 11/27/19 23:50 Dose: 0.23 mcg/kg/min, 60 mls/hr Documented by: [id number] Titration: 11/27/19 23:25 Dose: 0.21 mcg/kg/min, 54.8 mls/hr Documented by: [id number] Titration: 11/27/19 23:20 Dose: 0.19 mcg/kg/min, 49.6 mls/hr Documented by: [id number] Titration: 11/27/19 23:15 Dose: 0.17 mcg/kg/min, 44.4 mls/hr Documented by: [id number] Titration: 11/27/19 23:10 Dose: 0.15 mcg/kg/min, 39.1 mls/hr Documented by: [id number] Titration: 11/27/19 23:05 Dose: 0.13 mcg/kg/min, 33.9 mls/hr Documented by: [id number] Titration: 11/27/19 23:00 Dose: 0.11 mcg/kg/min, 28.7 mls/hr Documented by: [id number] Titration: 11/27/19 22:55 Dose: 0.09 mcg/kg/min, 23.5 mls/hr Documented by: [id number] Titration: 11/27/19 22:50 Dose: 0.07 mcg/kg/min, 18.3 mls/hr Documented by: [id number] Admin: 11/27/19 20:47 Dose: 0.05 mcg/kg/min, 13 mls/hr Documented by: [id number] Cosigned by: [id number] Sodium Chloride (Nss 1000ml) 1,000 mls @ 125 mls/hr IV .Q8H LINDA Stop: 12/27/19 22:32 Last Infusion: 11/29/19 10:29 Dose: 0 mls/hr Documented by: [id number] Admin: 11/29/19 09:29 Dose: Not Given Documented by: [id number] Infusion: 11/29/19 07:18 Dose: 0 mls/hr Documented by: [id number] Admin: 11/29/19 05:52 Dose: 125 mls/hr Documented by: [id number] Infusion: 11/29/19 05:52 Dose: 125 mls/hr Documented by: [id number] Admin: 11/28/19 23:36 Dose: 125 mls/hr Documented by: [id number] Infusion: 11/28/19 23:36 Dose: 125 mls/hr Documented by: [id number] Admin: 11/28/19 16:22 Dose: 125 mls/hr Documented by: [id number] Infusion: 11/28/19 15:46 Dose: 125 mls/hr Documented by: [id number] Admin: 11/28/19 07:46 Dose: 125 mls/hr Documented by: [id number] Infusion: 11/28/19 07:46 Dose: 125 mls/hr Documented by: [id number] Admin: 11/28/19 00:18 Dose: 125 mls/hr Documented by: [id number] Doxycycline Hyclate 100 mg/ (Dextrose) 110 mls @ 50 mls/hr IV Q12H LINDA Stop: 12/04/19 22:59 Last Infusion: 11/29/19 10:29 Dose: 0 mls/hr Documented by: [id number] Admin: 11/29/19 09:29 Dose: 50 mls/hr Documented by: [id number] Infusion: 11/29/19 01:47 Dose: 50 mls/hr Documented by: [id number] Admin: 11/28/19 23:35 Dose: 50 mls/hr Documented by: [id number] Infusion: 11/28/19 15:15 Dose: 0 mls/hr Documented by: [id number] Admin: 11/28/19 12:53 Dose: 50 mls/hr Documented by: [id number] Infusion: 11/28/19 02:55 Dose: 0 mls/hr Documented by: [id number] Admin: 11/28/19 00:18 Dose: 50 mls/hr Documented by: [id number] Cefepime HCl 2,000 mg/ Syringe 20 mls @ 5.5 mls/min IV Q12H LINDA; Protocol Stop: 12/05/19 05:59 Last Admin: 11/29/19 05:52 Dose: 5.5 mls/min Documented by: [id number] Admin: 11/28/19 16:24 Dose: 5.5 mls/min Documented by: [id number] Admin: 11/28/19 06:03 Dose: 5.5 mls/min Documented by: [id number] Methylprednisolone 40 mg/ (Syringe) 0.64 mls @ 1.5 mls/min IV TID LINDA Stop: 12/27/19 22:59 Last Admin: 11/28/19 20:08 Dose: 1.5 mls/min Documented by: [id number] Admin: 11/28/19 12:54 Dose: 1.5 mls/min Documented by: [id number] Admin: 11/28/19 07:47 Dose: 1.5 mls/min Documented by: [id number] Admin: 11/28/19 00:18 Dose: 1.5 mls/min Documented by: [id number] Fentanyl Citrate (Fentanyl Drip) 1,250 mcg in 250 mls @ 0 mls/hr IV .Q0M LINDA; Protocol Stop: 12/11/19 23:29 Last Titration: 11/28/19 10:26 Dose: 0 mcg/hr, 0 mls/hr Documented by: [id number] Titration: 11/28/19 08:37 Dose: 0 mcg/hr, 0 mls/hr Documented by: [id number] Titration: 11/28/19 07:19 Dose: 25 mcg/hr, 5 mls/hr Documented by: [id number] Cosigned by: [id number] Admin: 11/28/19 05:30 Dose: 25 mcg/hr, 5 mls/hr Documented by: [id number] Cosigned by: [id number] Vasopressin 20 units/ Sodium (Chloride) 101 mls @ 0 mls/hr IV .Q0M LINDA Stop: 12/28/19 00:14 Last Infusion: 11/29/19 07:16 Dose: 0 unit/min, 0 mls/hr Documented by: [id number] Infusion: 11/28/19 07:48 Dose: 0 unit/min, 0 mls/hr Documented by: [id number] Infusion: 11/28/19 07:19 Dose: 0.04 unit/min, 12.1 mls/hr Documented by: [id number] Cosigned by: [id number] Admin: 11/28/19 06:33 Dose: 0.04 unit/min, 12.1 mls/hr Documented by: [id number] Cosigned by: [id number] Infusion: 11/28/19 06:33 Dose: 0.04 unit/min, 12.1 mls/hr Documented by: [id number] Cosigned by: [id number] Admin: 11/28/19 00:19 Dose: 0.04 unit/min, 12.1 mls/hr Documented by: [id number] Cosigned by: [id number] Parenteral Electrolytes (Normosol-R) 500 mls @ 999 mls/hr IV .Q31M ONE Stop: 11/28/19 01:16 Last Infusion: 11/28/19 02:55 Dose: 0 mls/hr Documented by: [id number] Admin: 11/28/19 01:22 Dose: 999 mls/hr Documented by: [id number] Vancomycin HCl 1,500 mg/ (Sodium Chloride) 530 mls @ 200 mls/hr IV NOW ONE Stop: 11/28/19 04:02 Last Infusion: 11/28/19 04:24 Dose: 0 mls/hr Documented by: [id number] Admin: 11/28/19 01:45 Dose: 200 mls/hr Documented by: [id number] Calcium Chloride 1,000 mg/ (Sodium Chloride) 60 mls @ 240 mls/hr IV NOW STA Stop: 11/28/19 05:32 Last Infusion: 11/28/19 05:54 Dose: 0 mls/hr Documented by: [id number] Admin: 11/28/19 05:33 Dose: 240 mls/hr Documented by: [id number] Sodium Phosphate 15 mmol/ (Sodium Chloride) 255 mls @ 88 mls/hr IV ONE ONE Stop: 11/28/19 08:38 Last Infusion: 11/28/19 08:41 Dose: 0 mls/hr Documented by: [id number] Admin: 11/28/19 05:47 Dose: 88 mls/hr Documented by: [id number] Vancomycin HCl 1,000 mg/ (Sodium Chloride) 270 mls @ 125 mls/hr IV Q16H LINDA Stop: 11/30/19 01:45 Last Infusion: 11/28/19 18:33 Dose: 0 mls/hr Documented by: [id number] Admin: 11/28/19 16:24 Dose: 125 mls/hr Documented by: [id number] Methylprednisolone 60 mg/ (Syringe) 0.96 mls @ 1.5 mls/min IV TID LINDA Stop: 12/29/19 08:59 Last Admin: 11/29/19 09:29 Dose: 1.5 mls/min Documented by: [id number] Magnesium Sulfate/Dextrose (Magnesium Sulfate / D5w) 1 gm in 100 mls @ 50 mls/hr IV 0645 ONE Stop: 11/29/19 08:44 Last Infusion: 11/29/19 09:19 Dose: 0 mls/hr Documented by: [id number] Admin: 11/29/19 07:15 Dose: 50 mls/hr Documented by: [id number] Lorazepam (Ativan) Confirm Administered Dose 2 mg .ROUTE .STK-MED ONE Stop: 11/27/19 18:17 Last Admin: 11/27/19 18:18 Dose: 2 mg Documented by: [id number] Lorazepam (Ativan) Confirm Administered Dose 2 mg .ROUTE .STK-MED ONE Stop: 11/27/19 18:20 Last Admin: 11/27/19 18:20 Dose: 2 mg Documented by: [id number] Midazolam HCl (Versed) 2 mg IV Q2H PRN PRN Reason: agitation/anxiety Stop: 12/27/19 23:25 Last Admin: 11/28/19 04:39 Dose: 2 mg Documented by: [id number] Miscellaneous () Confirm Administered Dose 1 ea .ROUTE .STK-MED ONE Stop: 11/27/19 18:23 Last Admin: 11/27/19 18:37 Dose: Not Given Documented by: [id number] Miscellaneous () 1 ea N/A NOW STA Stop: 11/27/19 18:33 Last Admin: 11/27/19 18:35 Dose: Not Given Documented by: [id number] Miscellaneous () 1 ea N/A NOW STA Stop: 11/27/19 20:28 Last Admin: 11/27/19 20:55 Dose: Not Given Documented by: [id number] Naloxone HCl (Narcan) 0.4 mg IV NOW STA Stop: 11/27/19 18:06 Last Admin: 11/27/19 18:14 Dose: 0.4 mg Documented by: [id number] Naloxone HCl (Narcan) Confirm Administered Dose 0.4 mg .ROUTE .STK-MED ONE Stop: 11/28/19 10:18 Last Admin: 11/28/19 10:23 Dose: 0.2 mg Documented by: [id number] Naloxone HCl (Narcan) 0.2 mg IV NOW STA Stop: 11/28/19 10:27 Last Admin: 11/28/19 10:44 Dose: Not Given Documented by: [id number] Propofol (Diprivan) Confirm Administered Dose 1,000 mg IV .STK-MED ONE Stop: 11/27/19 18:32 Last Admin: 11/27/19 18:37 Dose: Not Given Documented by: [id number] Rocuronium [place]mage (Zemuron) 100 mg IV NOW STA Stop: 11/27/19 18:33 Last Admin: 11/27/19 18:25 Dose: 100 mg Documented by: [id number] Cosigned by: [id number] Sertraline HCl (Zoloft) 200 mg PO .EXTRA DOSE ONE Stop: 11/29/19 09:46 Last Admin: 11/29/19 10:17 Dose: 200 mg Documented by: [id number] Discharge Plan Visit Data *Final* Discharge Date/Time: 11/27/19 20:50 Chief Complaint: Respiratory Arrest ED Provider: Rafa Mobley Discharge Problem: Respiratory arrest, COPD (chronic obstructive pulmonary disease), Elevated troponin, Overdose of analgesic Patient Disposition: Admitted As Inpatient Discharge Instructions Interventions: ED Discharge Assessment Last Done: 11/27/19 20:50 Discharge Problem: COPD (chronic obstructive pulmonary disease) Qualifiers: COPD type: unspecified COPD Qualified Code(s): J44.9 - Chronic obstructive pulmonary disease, unspecified Overdose of analgesic Qualifiers: Encounter type: initial encounter Injury intent: undetermined intent Qualified Code(s): T39.94XA - Poisoning by unspecified nonopioid analgesic, antipyretic and antirheumatic, undetermined, initial encounter
[2019-11-27] MEDS ORDERED: LORazepam 2 MG/4 ML VIAL ONE ×2 (18:16→18:19)
[2019-11-27] MEDS ORDERED: fentaNYL citrate 100 MCG/2 ML VIAL ONE ×2 (18:19→21:09)
--- NOTE | 2019-11-27 18:21 | XRay Report ---
XR chest 1V portable CLINICAL HISTORY: SEPSIS COMPARISON STUDY: March 20, 2019 FINDINGS: The heart is normal in size. There is aortic tortuosity. There is no focal pulmonary consol idation. There is pulmonary emphysema. There is mild upper lobe interstitial thickening.[No pleural e ffusions are visualized. IMPRESSION: 1. Pulmonary emphysema with mild nonspecific upper lung zone predominant interstitial thickening 2. No evidence of lobar consolidation ACT 112: Negative or not required by law. Electronically signed by: Dwayne Banuelos M.D. 11/27/2019 6:19 PM
[2019-11-27] MEDS ORDERED: RAPID SEQUENCE INDUCTION BAG ONE (18:22)
[2019-11-27 18:27] LABS: Basophils # (auto) 0.04 K/uL (0-0.2); Basophils % (auto) 0.2 %; Eosinophils # (auto) 0.15 K/uL (0-0.5); Eosinophils % (auto) 0.9 %; Hematocrit (blood only) 40.9 % (42-52); Hemoglobin 13.3 g/dL (14.0-18.0); Immature Granulocytes # (auto) 0.15 K/uL (0.00-0.02); Immature Granulocytes % (auto) 0.9 %; Lymphocytes # (auto) 1.93 K/uL (1.2-3.4); Lymphocytes % (auto) 11.3 %; Mean Corpuscular Hemoglobin 31.2 pg (25-34); Mean Corpuscular Hgb Conc 32.5 g/dL (32-36); Mean Platelet Volume 10.8 fL (7.4-10.4); Monocytes # (auto) 1.41 K/uL (0.11-0.59); Monocytes % (auto) 8.3 %; Neutrophils # (auto) 13.34 K/uL (1.4-6.5); Neutrophils % (auto) 78.4 %; Platelet Count 206 K/uL (130-400); RDW Coefficient of Variation 12.8 % (11.5-14.5); RDW Standard Deviation 44.2 fL (36.4-46.3); Red Blood Count 4.26 M/uL (4.7-6.1); White Blood Count 17.02 K/uL (4.8-10.8)
[2019-11-27] MEDS ORDERED: PROPOFOL IV EMULSION 10 MG/ML 100 ML VIAL IV ONE (18:31)
[2019-11-27] MEDS ORDERED: PROPOFOL BOLUS FROM BAG IV PRN (18:32)
[2019-11-27] MEDS ORDERED: STAT IV Infusion **Titration per Protocol STA ×3 (18:32→23:26)
[2019-11-27] MEDS ORDERED: ROCURONIUM BROMIDE 10 MG/ML 10 ML VIAL IV STA (18:32)
[2019-11-27 18:38] LABS: Partial Thromboplastin Ratio 1.1; Partial Thromboplastin Time 30.3 Seconds (21.0-31.0); Prothrombin Time 10.8 Seconds (9.0-12.0)
[2019-11-27 18:44] LABS: Albumin Level 3.2 gm/dl (3.4-5.0); BUN Creatinine Ratio 6.9 (10-20); Calcium 8.4 mg/dl (8.5-10.1); Creatinine Clr Calc Pharmacy 47.9 ml/min; Est GFR (African American) 53.9; Est GFR (Non-African American) 46.5; Magnesium 2.5 mg/dl (1.8-2.4)
[2019-11-27] MEDS ORDERED: propofoL 1,000 MG/100 ML VIAL IV SCH (18:45)
--- NOTE | 2019-11-27 18:45 | XRay Report ---
XR chest 1V portable CLINICAL HISTORY: Respiratory failure. Intubation. COMPARISON STUDY: 11/27/2019 FINDINGS: The cardiac and mediastinal contours remain stable. There is pulmonary emphysema. There is no lobar consolidation. There are no pleural effusions. Postsurgical changes are present within the c ervical spine. There is equivocal visualization of the tip of an endotracheal tube which is positione d 11 cm above the danny.[ IMPRESSION: Equivocal visualization of the tip of an endotracheal tube which is positioned 11 cm abov e the danny ACT 112: Negative or not required by law. Electronically signed by: Dwayne Banuelos M.D. 11/27/2019 6:43 PM
[2019-11-27 18:55] LABS: Albumin Globulin Ratio 0.8 (0.9-2); Bilirubin,Total 0.2 mg/dl (0.2-1); Total Protein 7.2 gm/dl (6.4-8.2); Troponin I 0.075 ng/ml (0-0.045)
--- NOTE | 2019-11-27 19:07 | XRay Report ---
XR chest 1V portable CLINICAL HISTORY: Respiratory failure. Advancement of endotracheal tube. COMPARISON STUDY: Earlier in the evening FINDINGS: The cardiac and mediastinal contours remain stable. There is radiographic evidence of emphy sema. There is no focal pulmonary consolidation. There are no pleural effusions. There is an endotrac heal tube 5 cm above the danny. There is a gas distended esophagus.[ IMPRESSION: Endotracheal tube 5 cm above the danny. Suspected gaseous distention of the esophagus. ACT 112: Negative or not required by law. Electronically signed by: Dwayne Banuelso M.D. 11/27/2019 7:06 PM
--- NOTE | 2019-11-27 19:19 | CT Scan Report ---
CT head/brain wo con CLINICAL HISTORY: Unresponsive patient. PATIENT INTUBATED COMPARISON STUDY: No previous studies for comparison. TECHNIQUE: Axial CT of the brain is performed from the vertex to the skull base. IV contrast was not administered for this examination. A dose lowering technique was utilized adhering to the principles of ALARA. CT DOSE: 821.00 mGycm FINDINGS: No intra or extra-axial mass lesions are visualized. There is no CT evidence of acute cortical infarc tion. There is no evidence of midline shift. There is no acute hemorrhage. No calvarial fractures ar e visualized. There is a right frontal hypodensity. This potentially is artifactual. If the patient's neurological condition does not improve, an MRI could be obtained in follow-up. There is no evidence of pathologic ventricular dilatation. There is no evidence of acute sinusitis IMPRESSION: 1. Nonspecific right frontal lobe hypodensity, potentially artifactual. If the patient's neurological condition does not improve, an MRI could be obtained in follow-up. 2. No evidence of acute hemorrhage. ACT 112: Negative or not required by law. Electronically signed by: Dwayne Banuelos M.D. 11/27/2019 7:18 PM
[2019-11-27 19:41] LABS: Appearance Urine Clear (Clear); Bacteria Urine Automated Negative (Negative); Bilirubin Urine Negative (Negative); Blood Urine Trace (Negative); Color Urine Yellow; Epithelial Cell Urine Auto >30 /lpf (0-5); Glucose Urine UA Negative (Negative); Ketones Urine Negative (Negative); Leukocyte Esterase Urine Negative (Negative); Nitrite Urine Negative (Negative); Protein Urine 1+ (Negative); RBC Urine Automated 0-4 /hpf (0-4); Specific Gravity Urine 1.014 (1.000-1.030); Urobilinogen Urine Negative (Negative)
[2019-11-27 19:56] LABS: Amphetamines+Metham, Urine Neg (Neg); Barbiturates, Urine Neg (Neg); Benzodiazepine, Urine Pos (Neg); Cocaine, Urine Neg (Neg); MDMA (Ecstacy), Urine Pos (Neg); Methadone, Urine Pos (Neg); Opiate, Urine Neg (Neg); Phencyclidine, Urine Neg (Neg)
[2019-11-27] MEDS ORDERED: DEXTROSE 50% 50 ML SYRINGE IV ONE ×2 (20:12→20:40)
[2019-11-27] MEDS ORDERED: NOREPINEPHRINE BIT INJ 8 MG in DEXTROSE 5% 500 ML IV SCH (20:30)
[2019-11-27 20:31] LABS: Base Excess VBG 2.2 mEq/L; HCO3 VBG 34 mmol/L; PCO2 VBG 111 mmHg (38-50); PO2 VBG 26 mmHg; pH VBG 7.11 (7.36-7.41)
[2019-11-27 20:40] LABS: Oxygen Saturation VBG < 60.0 %
[2019-11-27 20:56] LABS: D Dimer 3710 ug/L FEU (0-500)
[2019-11-27] MEDS: fentaNYL citrate 100 MCG/2 ML VIAL IV STA ×2 (21:30→22:09)
[2019-11-27] MEDS ORDERED: OPTIRAY 320 125ml IV PRN (21:32)
[2019-11-27] MEDS: ALBUT/IPRATROP 3MG/0.5MG NEB 3 ML VIAL NEB SCH (22:25)
[2019-11-27] MEDS ORDERED: ALBUTEROL HFA 8 GM INHALER INH PRN (22:33)
[2019-11-27] MEDS ORDERED: ICU PROTOCOL FOR HYPERGLYCEMIA PRN (22:33)
[2019-11-27] MEDS ORDERED: CEFEPIME CONSULT ACTIVE PRN (22:36)
--- NOTE | 2019-11-27 22:45 | Procedure Note ---
Procedure Note Date of Service November 27, 2019 Note INTERNAL JUGULAR CENTRAL LINE PROCEDURE NOTE: Procedure: Internal Jugular Central Line Placement Attending: Dr. Garcia Provider: SOPHIA Shelley Indication: Central Drug Administration Anesthesia: None Line placed emergently in the setting of hypotension/shock, on vasopressors. A time-out was completed verifying correct patient, procedure, site, positioning, and implants(s) or special equipment if applicable. Patients right neck was cleansed and draped in the typical sterile fashion using Chloraprep. The Internal Jugular Vein and Carotid Artery were identified using ultrasound. The Internal Jugular vein was cannulated under direct ultrasound guidance using an introducer needle on a syringe. Good venous blood return was maintained prior to removal of syringe from introducer needle. Using Seldinger Technique, a guide wire was advanced through the introducer needle without resistance. The introducer needle was removed and ultrasound images were obtained of the guide wire within the Internal Jugular Vein and saved to the patients medical record. A small incision was made in penetrating fashion at the guide wire insertion site utilizing an 11 blade scalpel. The dilator was advanced to the vessel without resistance. The dilator was exchanged for the triple lumen catheter which was advanced into the vessel without resistance. The guide wire was removed intact from the catheter without issue. Claves were placed on each catheter tip with confirmation of good blood flow from each lumen. Each port was easily flushed with sterile saline. The catheter was placed at 15 cm and sutured in place. BioPatch was applied to the catheter and a sterile Tegaderm dressing was applied over the catheter with careful attention to sterility. Patient tolerated procedure well. No immediate complications were met. Post procedure x-ray was completed, placement was appropriate and no pneumothorax was noted. Images obtained are saved for permanent record Procedural Ultrasound Guidance: Procedure Date: 11/28/2019 Indication: Central line insertion Attending: Dr. Garcia Provider: SOPHIA Shelley Artery AND Vein visualized: Yes Compressible Vein: Yes Guidewire or Short Catheter seen in vein prior to dilation: Yes Line confirmed in Vein with ultrasound: Yes Images obtained are saved for permanent record. Coding CPT Codes Tubes, Drains, and Vasc Access - Tubes, Drains, and Vasc Access: [id number] Place catheter in vein superior or inferior vena cava ([id number]) Tubes, Drains, and Vasc Access - Tubes, Drains, and Vasc Access: [id number] Ultrasound Guidance For Vascular ([id number]) [facility] Procedure Codes (Charges) Tubes, Drains, and Vasc Access Procedure 1: Tubes, Drains, and Vasc Access: [id number] Place catheter in vein superior or inferior vena cava Procedure 2: Tubes, Drains, and Vasc Access: [id number] Ultrasound Guidance For Vascular
--- NOTE | 2019-11-27 22:45 | Procedure Note ---
Procedure Note Date of Service November 27, 2019 Note ARTERIAL LINE PROCEDURE NOTE: Procedure: Arterial Line Placement Attending: Dr. Garcia Provider: SOPHIA Shelley Indication: Monitoring on Pressors Anesthesia: None Line placed emergently for monitoring on vasopressors in the setting of hypotension/shock A time-out was completed verifying correct patient, procedure, site, positioning, and implant(s) or special equipment if applicable. Allens test was performed to ensure adequate perfusion. Patients left wrist was prepped and draped in the usual sterile fashion. Ultrasound guidance was used to aid needle placement. A 20g Arrow arterial line was introduced into the left radial artery. Catheter was threaded, and the needle was removed with appropriate blood return. Good waveform was observed. The patient tolerated the procedure well. Confirmation of placement with ultrasound. Blood Loss: Minimal Complications: None Procedural Ultrasound Guidance: Procedure Date: 11/28/1999 Indication: Arterial line insertion Attending: Dr. Garcia Provider: SOPHIA Shelley Artery Identified: YES Line confirmed in Artery with ultrasound: Yes Complications: NONE Patient tolerated procedure: WELL Coding
--- NOTE | 2019-11-27 22:45 | Critical Care Consultation ---
Date of Consultation November 27, 2019 Assessment & Plan (1) Shock: Reason Critically Ill: 59-year-old male with advanced COPD on 2 L nasal cannula home dialysis, presents with questionable cardiac arrest in which she is he received CPR from son. He was found to have pulse on EMS arrival but was altered mental status and was emergently intubated in field. Became increasingly hypotensive, now requiring vasopressors for hemodynamic support. Neuro - AMS/acute encephalopathyunsure of etiology at this time, was told by ED physician that patient's neurological exam did improve following administration of Narcan; questionable overdose -UDS positive for methadone, MDMA, benzos on preliminary; consider patient does have prescriptions for [place], Xanax -Patient significant other states that is meds are locked up and she does not have access for pill count -Patient spouse states he has had 2 TIAs in the past, CTA of the head and neck negative for acute process -LFTs within normal limits, BUN normal, UA negative for UTI -CO2 58 on initial VBG, COPD exacerbation/CO2 narcosis?; See management below -Neurological exam initially compromised due to paralytics/sedation, however after prolonged pause of sedation patient was able to arouse and follow commands bilaterally -We will continue with supportive care at this time Bipolar/anxietyhold home medications at this time Cardiac - Hypotension/shockunsure of etiology at this time, septic versus cardiogenic versus sedation/overdose? -A-line, CVC inserted for central access for vasoactive and continuous hemodynamic monitoring -Titrating vasopressors for maps greater than 65, currently on levo and vasopressin -Elevated troponin 0 0.07, now 0.5; no ST elevation; suspicious for cor pulmonale, demand ischemia, patient did receive CPR in field -We will continue to trend troponins, if continues to rise will add heparin with bolus -No PE on CTA chest -LA initially elevated, likely secondary to hypoperfusion however cannot rule out sepsis process at this time; see ID for management below -Holding propofol as patient became significantly more hypotensive, will use fentanyl/Versed for sedation Respiratory - Acute on chronic COPDpatient with advanced COPD with chronic hypoxia requiring 2 L nasal cannula at baseline, continues to actively smoke -Was intubated following CPR, current vent settings: 24/450/5/30 percent; adjust settings to ABGs -D-dimer was elevated, CTA of the chest negative for PE -Initial VBG showed respiratory acidosis with CO2 of 58, however this was collected following emergent intubation in the field; however cannot rule out COPD exacerbation at this time -Starting Solu-Medrol, DuoNeb -Consider pneumonia, continue broad-spectrum antibiotics -Continuous monitoring on pulse ox -Repeat chest x-ray in a.m. -We will wean vent as tolerated Pulmonary nodulespatient with multiple pulmonary nodules on CT chest which are new from previous studies -No acute intervention needed at this time, will defer management to critical care/pulmonary attending GI - N.p.o. Questionable ileus and colitis on CT abdomen, appears to be constipated -Abdomen currently soft, nontender on exam with normal bowel sounds all 4 quadrants -Lactate trended down -Continue antibiotic therapy -Continue NG to low wall suction -will start bowel regimen -Monitor RENAL/LYTES - AKIsuspected ATN/prerenal following shock/cardiac arrest?; Creatinine 1.5 this was prior to IV contrast -Bolused 2 L in the ED, will maintain euvolemia -Trend creatinine monitor electrolytes replete as necessary through the routine BMPs -Maintain maps greater than 65 -Avoid nephrotoxins - Foleystrict I's and O's ENDO - No history of thyroid disease or diabetes We will follow-up TSH and hemoglobin A1c ICU hyperglycemic protocol HEME - H&H stable, monitor routine CBCs Coags within normal limits ID - Cannot rule out sepsis at this time, will continue broad-spectrum antibiotics cefepime, doxycycline, vancomycin -Nasal MRSA positive -UA negative, blood cultures pending -WBC elevated, initial lactate positive, however procalcitonin negative, will trend LINES/IV ACCESS - CBC, A-line, ETT, NGT, Wagoner, PIV's DVT PROPHYLAXIS - SCDs, heparin CODE STATUS: Full code I have personally spent 70 minutes of critical care time in the direct management of this patient. This is a life/limb threatening event. This includes time spent evaluating patient, direct bedside care, chart review, placing o rders, interpretation of diagnostic studies, discussion with consultants, patient, and family members, as well as other required patient management activities. This time is exclusive of all separately billable procedures, and teaching time and separate from and in addition to any other critical care service time. Thank you for allowing us to participate in the care of this patient. Please refer to my attending physician's documentation for any further recommendations. (2) COPD (chronic obstructive pulmonary disease): (3) Bipolar disorder: (4) Anxiety: (5) Elevated troponin: (6) AMS (altered mental status): (7) Acute and chronic respiratory failure: History of Present Illness Attending Physician: Ricarda Scott MD History of Present Illness Mr. Lawrence is a 59-year-old male with a history of COPD and chronic hypoxic respiratory failure on 2 L nasal cannula at baseline, active tobacco abuse, bipolar disorder, anxiety disorder. He presented to the emergency department's via EMS following a suspected cardiac arrest in which he received CPR by family member until EMS arrived. He had been found unresponsive by the , and the family member who did CPR was unsure if he felt a pulse or not so initiated with chest compressions. He was found to have a pulse when EMS arrived, blood glucose was reportedly 97, and he was emergently intubated and taken to the ED. Patient was given Narcan, and according to ED physician became very agitated and required sedation and paralytics. He was taken for CT head which was negative. EKG showed normal sinus rhythm and no ST elevation. Labs were mostly unremarkable, however he did have a mildly elevated lactic acidosis and mildly elevated troponin. He was becoming increasingly hypotensive in the ED and Levophed was initiated. He was taken for CTA of the head and neck, CTA of the chest, and CT abdomen prior to transfer to the ICU. Imaging was unremarkable for acute findings that would be culprit. Patient continued to become increasingly hypotensive on arrival and CVC and arterial line were emergently placed. He is currently requiring multi vasopressors. Sedation has currently been held and he was able to arouse with moderate stimulation and did follow commands bilaterally, but remains significantly lethargic and is unable to stay awake. I spoke with the patient's , who states patient was at baseline prior to this event, and denied recent illness. She states the patient does take Bee[place] and Xanax prescription, however she did not have access to these medications as they are locked away. She denied any recent travel in the past 2 weeks or contact with anyone positive for COVID. Patient to remain in ICU for further management at this time as he is currently ventilated on multiple vasopressors. Allergies Allergy/AdvReac Type Severity Reaction Status Date / Time No Known Allergies Allergy Unverified 03/20/19 08:55 Home Medications Home Medications Medication Instructions Recorded Confirmed Type alprazolam [Xanax] 1 mg PO TID 03/20/19 11/27/19 History hydrocodone-acetaminophen [Beechmont] 1 tab PO BID 03/20/19 11/27/19 History ipratropium-albuterol 3 ml INHALATION Q4 PRN 03/20/19 11/27/19 History sertraline [Zoloft] 200 mg PO QPM 03/20/19 11/27/19 History tizanidine [Zanaflex] 4 mg PO TID PRN 03/20/19 11/27/19 History albuterol sulfate 2 puffs INH QID PRN #18 gm 03/23/19 11/27/19 Rx aspirin [Aspir-81] 81 mg PO DAILY 11/27/19 11/27/19 History mirtazapine 15 mg PO HS 11/27/19 11/27/19 History Patient History Medical History Anxiety (Chronic) Bipolar disorder (Chronic) Chronic pain (Chronic) COPD (chronic obstructive pulmonary disease) (Chronic) H/O: CVA (cerebrovascular accident) (Chronic) Tobacco use disorder (Chronic) Surgical History History of cervical spinal surgery (Chronic) History of hip surgery (Chronic) Family History Other Heart disease Social History Preferred Language: Persian Communication Ability: Effective Deputy Register Of Deeds Required: No Beliefs That Will Affect Care: None Current Living Situation: Spouse Other Information That Helps Us Care for You: No Feels Safe at Home: Declines to Answer Smoking Status: Current every day smoker Tobacco Type: cigarettes ; Cigarettes Per Day: 10 ; Second Hand Exposure: Yes ; Tobacco Cessation Education Requested by Patient: No Hx Alcohol Use: No Hx Substance Use: No Review of Systems Review of Systems: Unobtainable due to cognitive status and Unobtainable due to endotracheal tube Physical Exam Constitutional: + frail appearing and + mechanically ventilated Eyes: + pinpoint pupils; pupils not irregular and no nystagmus ENMT: external ear and nose normal, oropharynx normal Neck: trachea midline, no thyromegaly Respiratory: Diminished lung sounds with wheezing in all sherman bilaterally, symmetrical chest wall movement, mechanically ventilated Cardiovascular: RRR, no murmur, no edema Heart Sounds: normal S1 and normal S2 Vessels: + JVD Extremities: normal capillary refill; no edema Gastrointestinal (Abdomen): normal bowel sounds, soft, nontender, no hepatosplenomegaly Skin: no rashes, warm and dry Neurologic: ORTIZ due to sedation, paralytics Psychiatric: ORTIZ Genitourinary: Indwelling Wagoner Results & Data Results & Data ([facility]) Vital Signs (Past 12 Hours) Vital Signs Temp Pulse Pulse Resp BP Pulse Ox 11/27/19 22:26 65 20 100 11/27/19 22:25 63 24 100 11/27/19 21:01 59 L 91/68 L 11/27/19 20:55 62 80/68 L 11/27/19 20:50 58 L 80/61 L 97 11/27/19 20:45 56 L 80/61 L 98 11/27/19 20:40 57 L 75/58 L 98 11/27/19 20:35 58 L 75/61 L 98 11/27/19 20:30 58 L 79/57 L 98 11/27/19 20:25 56 L 74/57 L 98 11/27/19 20:20 57 L 75/59 L 100 11/27/19 20:16 59 L 81/62 L 99 11/27/19 20:15 59 L 79/62 L 99 11/27/19 20:10 66 85/65 L 93 11/27/19 20:05 60 99 11/27/19 20:00 59 L 83/63 L 99 11/27/19 19:57 60 88/66 L 100 11/27/19 19:55 60 84/63 L 100 11/27/19 19:50 61 82/62 L 100 11/27/19 19:46 62 88/65 L 100 11/27/19 19:45 74 87/64 L 100 11/27/19 19:40 64 100 11/27/19 19:35 64 92/67 L 100 11/27/19 19:30 67 93/69 L 100 11/27/19 19:25 68 106/77 100 11/27/19 19:20 71 126/83 99 11/27/19 19:19 70 113/77 99 11/27/19 19:16 98 H 11/27/19 19:00 34.5 C L 123/86 11/27/19 18:55 79 126/90 100 11/27/19 18:50 89 135/97 100 11/27/19 18:45 77 128/81 100 11/27/19 18:40 80 116/78 100 11/27/19 18:35 89 104/76 100 11/27/19 18:33 88 93/65 L 100 11/27/19 18:30 90 100 11/27/19 18:27 91 H 117/71 98 11/27/19 18:25 93 H 97 11/27/19 18:20 94 H 103/79 100 11/27/19 18:15 93 11/27/19 18:10 63 100 11/27/19 18:09 60 100 11/27/19 18:08 100 11/27/19 18:06 61 25 H 100 11/27/19 18:05 59 L 16 114/76 100 11/27/19 18:02 59 L 114/76 100 Coding Level of Care Code Critical Care 1st 30-74 mins Diagnoses Shock R57.9 COPD (chronic obstructive pulmonary disease) J44.9 Bipolar disorder F31.9 Anxiety F41.9 Elevated troponin R79.89 AMS (altered mental status) R41.82 Acute and chronic respiratory failure J96.20
[2019-11-27] MEDS ORDERED: FENTANYL BOLUS FROM BAG IV PRN (23:26)
[2019-11-27] MEDS ORDERED: MIDAZOLAM HCL 1 MG/ML 2ML VIAL IV PRN (23:26)
[2019-11-27] MEDS ORDERED: fentaNYL DRIP 1,250 MCG/250 ML BAG IV SCH (23:30)
--- NOTE | 2019-11-27 23:45 | History and Physical Report ---
DATE OF ADMISSION: 11/27/2019 CHIEF COMPLAINT: Unresponsiveness. HISTORY OF PRESENT ILLNESS: This is a 59-year-old male with past medical history significant for chronic respiratory failure on 2 L of oxygen, COPD, chronic rhinitis, degenerative disc disease, insomnia, ongoing tobacco abuse, bipolar disorder, presents with unresponsiveness. The patient lives with his . As per , he did not sleep last night and in the morning he was trying to sleep and when went to [facility] and came back at around 5:00pm, he was still sleeping, so she tried to go and check him and could not wake him up. At that time, they called 911 and was advised to do CPR and when the EMS came in, they could feel the pulse, intubated on the field for possible respiratory arrest and brought him here. Currently status post intubation and sedated. Pupils were pinpointed. As per the , there is no recent fever, chills. No cough, no nausea, no vomiting, no complaints of loss of smell or taste. No complaints of any chest pain. They recently went to [place], [place] in last week for his father's pacemaker, but there were no sick contacts and they came back last Monday. His appetite is okay. He was eating figs so that was causing some diarrhea. He was ambulating okay in house. CT head was okay. His white count is 16k. D-dimer was 3710. Venous blood gas shows respiratory acidosis. Creatinine is 1.59, baseline is 0.8. His glucose when he came in was 60 with dextrose currently is 291. Troponin 0.075. Procalcitonin was normal at 0.08. Initial lactate was 2.7, was repeated was 1.9. Urinalysis was okay. Urine drug screen was positive for methadone and benzos. The patient chronically takes hydrocodone and also alprazolam at home. Chest x-ray show no infiltrate. CT of the head was okay. Currently, his blood pressure is running low and the ICU started him on pressors. He was having hypothermia. ALLERGIES: No known drug allergies. PAST MEDICAL HISTORY: As mentioned above. PAST SURGICAL HISTORY: Cervical disc arthroplasty, colonoscopies, femur fracture repair, tonsillectomy, adenoidectomy, left shoulder arthroscopy, spine surgery. MEDICATIONS: The patient is on alprazolam 1 mg p.o. t.i.d. p.r.n., hydrocodone/acetaminophen 10/325 mg one tablet p.o. b.i.d. p.r.n., Remeron 15 mg p.o. at bedtime, Zanaflex 2 mg p.o. t.i.d. p.r.n., albuterol 2 puffs q.i.d. p.r.n., Breo Ellipta 200/25 mcg 1 puff inhalation daily, Zoloft 200 mg p.o. at bedtime, olopatadine 0.2% ophthalmic solution 1 drop into eye daily, oxygen 2 liters continuous, DuoNebs every 4 hours p.r.n., aspirin 81 mg p.o. daily. FAMILY HISTORY: Significant for sister has colon cancer, mental disorder. Mother has CABG, osteoporosis. SOCIAL HISTORY: and lives with his . Ongoing smoking. No alcohol use. Currently use of prescription medication, in the past cocaine and methadone. REVIEW OF SYSTEMS: Unobtainable at this time. PHYSICAL EXAMINATION: GENERAL: The patient is intubated and sedated. HEENT: Pupils are pinpoint. Head atraumatic. NECK: No JVD, no neck masses seen. CARDIOVASCULAR: S1, S2 heard, regular rate and rhythm, no murmur, no gallop. RESPIRATORY SYSTEM: Normal AP diameter. Diminished bilateral breath sounds. No wheezing, no crackles. ABDOMEN: Soft, bowel sounds present. No distention. CENTRAL NERVOUS SYSTEM: Intubated and sedated. EXTREMITIES: No edema, no erythema. VITAL SIGNS: Temperature 34.5, pulse 59, [id number], blood pressure 91/68, oxygen 97% on mechanical ventilation. LABORATORY DATA: WBC 17.02, hemoglobin 13.3, hematocrit 40.9, platelets 206. PT 10.9, INR 1, APTT 30.3. [id number]. Venous blood gases pH of 7.11, pCO2 111, pO2 26, bicarbonate 34. Sodium 138, potassium 4, chloride 101, bicarbonate 25, BUN 11, creatinine 1.5, serum glucose 60. Lactate initially 2.7, currently 1.9, calcium 8.4, magnesium 2.5, total bilirubin 0.2, AST 19, ALT 22, alkaline phosphatase 92. Troponin I 0.075. Procalcitonin 0.08. Urinalysis +1 protein. Urine drug screen positive for methadone, benzos. Chest x-ray, no evidence of lobar consolidation. IMAGING: CT of the head, nonspecific right frontal lobe hypodensity initially artifactual and MRI could not be obtained in followup. No evidence of acute hemorrhage,CXR tip of endotracheal tube which is pushing the position 11 cm above the danny. EKG: Normal sinus rhythm, rate of 60. Poor quality interpretation. ASSESSMENT AND PLAN: A 59-year-old male who presents with unresponsiveness. 1. Unresponsiveness: Possible respiratory arrest, could be drug overdose, could be polypharmacy, could be hypoglycemia, could be sepsis, could be chronic obstructive pulmonary disease exacerbation, possible PE, possible CVA. The patient currently received Diprivan and status post intubation. Plan to get a CTA head to possibly rule out stroke. Initial CT of the head was unremarkable except for some questionable right frontal lobe hypodensity, potential artifactual. Plan to get a CTA of the head and neck and also CTA of the chest and CT of abdomen and pelvis. Empirically starting on IV cefepime and IV doxycycline Currently requiring pressors. Closely monitor in the ICU. IV fluids. Follow the cultures. Follow the repeat labs. Follow the response. 2. History of chronic obstructive pulmonary disease/chronic respiratory failure: Continue home inhalers, currently intubated, status post intubation. 3. Degenerative disc disease: Hold his home pain medication currently. 4. Bipolar disorder. Hold his p.o. medication currently. 5. RAFIQ from above. On fluids. Will follow labs. 6. Deep venous thrombosis prophylaxis, sequential compression devices for now. 7. Disposition: Closely monitor in the ICU. Level 1 full code. MTDD
[2019-11-28 00:01] LABS: iSTAT Arterial Blood Gas HCO3 25 meg/L (19-24); iSTAT Arterial Blood Gas pCO2 58 mmHg (35-46); iSTAT Arterial Blood Gas pH 7.25 (7.35-7.45); iSTAT Arterial Blood Gas pO2 226 mmHg (80-95); iSTAT Carbon Dioxide 27 mmol/L (24-31); iSTAT FiO2 45 %; iSTAT Site Art Line
[2019-11-28] MEDS ORDERED: STAT IV Infusion **Titration per Protocol STA (00:02)
[2019-11-28] MEDS: DOXYCYCLINE HYCLATE 100 MG in DEXTROSE 5% 100 ML IV SCH ×3 (00:18→23:35)
[2019-11-28] MEDS: SODIUM CHLORIDE 0.9% 1000ML 1,000 ML IV SCH ×4 (00:18→23:36)
[2019-11-28] MEDS: methylPREDNISolone 40 MG in SYRINGE 0 ML IV SCH ×4 (00:18→20:08)
[2019-11-28] MEDS: VASOPRESSIN 20 UNITS in 0.9 % SODIUM CHLORIDE 100 ML IV SCH ×2 (00:19→06:33)
[2019-11-28] MEDS ORDERED: NORMOSOL-R 500 ML IV ONE (00:46)
[2019-11-28 00:52] LABS: Acetaminophen < 2 ug/ml (10-30); Salicylate 2.1 mg/dl (2.8-20)
[2019-11-28] MEDS: ALBUT/IPRATROP 3MG/0.5MG NEB 3 ML VIAL NEB SCH ×3 (01:04→13:13)
[2019-11-28] MEDS ORDERED: VANCOMYCIN CONSULT ACTIVE PRN ×2 (01:24)
[2019-11-28] MEDS ORDERED: VANCOMYCIN HCL 1,500 MG in SODIUM CHLORIDE 0.9% 500 ML IV ONE (01:24)
[2019-11-28 04:52] LABS: Basophils # (auto) 0.01 K/uL (0-0.2); Basophils % (auto) 0.1 %; Eosinophils # (auto) 0.01 K/uL (0-0.5); Eosinophils % (auto) 0.1 %; Hematocrit (blood only) 36.7 % (42-52); Hemoglobin 11.9 g/dL (14.0-18.0); Immature Granulocytes # (auto) 0.04 K/uL (0.00-0.02); Immature Granulocytes % (auto) 0.3 %; Lymphocytes # (auto) 0.94 K/uL (1.2-3.4); Lymphocytes % (auto) 6.2 %; Mean Corpuscular Hemoglobin 30.5 pg (25-34); Mean Corpuscular Hgb Conc 32.4 g/dL (32-36); Mean Corpuscular Volume 94.1 fL (80-100); Mean Platelet Volume 10.7 fL (7.4-10.4); Monocytes # (auto) 0.41 K/uL (0.11-0.59); Monocytes % (auto) 2.7 %; Neutrophils # (auto) 13.87 K/uL (1.4-6.5); Neutrophils % (auto) 90.6 %; Platelet Count 196 K/uL (130-400); RDW Coefficient of Variation 12.7 % (11.5-14.5); RDW Standard Deviation 43.2 fL (36.4-46.3); White Blood Count 15.28 K/uL (4.8-10.8)
[2019-11-28 05:02] LABS: HCO3 ABG 25 mmol/L (19-24); PCO2 ABG 50 mmHg (35-46); PO2 ABG 86 mmHg (80-95); pH ABG 7.32 (7.35-7.45)
[2019-11-28 05:03] LABS: Allen Test Pos (Pos)
[2019-11-28 05:09] LABS: Albumin Level 2.7 gm/dl (3.4-5.0); BUN Creatinine Ratio 10.7 (10-20); Calcium 7.4 mg/dl (8.5-10.1); Creatinine Clr Calc Pharmacy 53.2 ml/min; Est GFR (African American) 68.7; Est GFR (Non-African American) 59.3; Magnesium 1.9 mg/dl (1.8-2.4); Potassium 4.4 mmol/L (3.5-5.1)
[2019-11-28] MEDS ORDERED: CALCIUM CHLORIDE 10% 1,000 MG in SODIUM CHLORIDE 0.9% 50 ML IV STA (05:18)
[2019-11-28 05:20] LABS: Albumin Globulin Ratio 0.9 (0.9-2); Bilirubin,Total 0.6 mg/dl (0.2-1); Phosphorus 1.3 mg/dl (2.5-4.9); Total Protein 5.7 gm/dl (6.4-8.2); Troponin I 0.546 ng/ml (0-0.045)
[2019-11-28] MEDS ORDERED: SODIUM PHOSPHATE 3 MMOL/1 ML 5 ML VIAL IV SCH (05:30)
[2019-11-28] MEDS ORDERED: SODIUM PHOSPHATE 15 MMOL in SODIUM CHLORIDE 0.9% 250 ML IV ONE (05:45)
[2019-11-28] MEDS: CEFEPIME 2,000 MG in SYRINGE 7.5 ML IV SCH ×2 (06:03→16:24)
--- NOTE | 2019-11-28 07:13 | CT Scan Report ---
CT angio neck with con, CT angio head w con CLINICAL HISTORY: 59 years-old Male with AMS. Acutely altered mental status with acute strokelike symptoms COMPARISON STUDY: CTA of the chest and CTA head of same day, chest CT 03/23/2019, TECHNIQUE: Following the IV administration of 118 mL of Optiray 320, CT angiogram of the head and nec k was performed from the aortic arch to the skull apex. Images are reviewed in the axial, sagittal, a nd coronal planes. 3-D MIPS images are created and assessed. IV contrast was administered without com plication. All measurements were calculated based on NASCET criteria. A dose lowering technique was utilized adhering to the principles of ALARA. FINDINGS: Three-vessel morphology of aortic arch. Patent innominate artery and imaged opacified bilateral proxi mal subclavian arteries. The common carotid arteries are patent. There is mild luminal irregularity w hich is likely secondary to atheromatous plaque involving the left carotid bulb and proximal cervical segment left ICA. The bilateral internal carotid arteries are widely patent. There is no significant atherosclerotic vascular disease. The middle and anterior cerebral arteries are patent. Normal anter ior communicating artery. Cerebral venous sinuses are patent. Dominant and patent left vertebral artery. Developmentally diminutive right vertebral artery, the merced ority of which terminates into the right PICA. Patent basilar artery. The bilateral posterior cerebra l arteries are patent. There is mild abdominal narrowing involving the proximal P1 segment. There is no aneurysm, dissection, high-grade stenosis or proximal branch occlusion identified. No abnormal intracranial enhancement. Endotracheal tube is noted within the trachea. Secretions are s een within the airway. Anterior plate and screw fusion hardware with discectomy changes are noted at the C4-C7 levels. Severe emphysema. 8 mm solid nodule of the left lung apex, image 328 series 5. 4 mm solid nodule of the left upper lobe adjacent to the fissure is unchanged from comparison. Bronchial wall thickening suggestive of bronchitis. Tracheobronchial secretions. IMPRESSION: 1. Unremarkable CTA of the head and neck without aneurysm, dissection, high-grade stenosis or proxima l branch occlusion. 2. Endotracheal tube is noted within the trachea. Mild associated tracheobronchial secretions. 3. Severe emphysema. 4. Left upper lobe pulmonary nodules including an 8 mm solid nodule which is new from 03/23/2019. Plea se refer to chest CT of same day for further details. Please refer to below summary of Fleischner criteria recommendations for follow-up of incidental CT n odules (Joselo Cole, Guidelines for management of small pulmonary nodules detected on CT scans: A darnell pinedo from the Fleischner Society, Radiology 237: [phone].) SOLID NODULES Solitary nodule size: <6 mm * Low risk patients: no follow-up needed * high risk patients: optional CT at 12 months Solitary nodule size: 6-8 mm * Low risk patients: follow-up at 6-12 months, then consider further follow-up at 18-24 months * high risk patients: initial follow-up CT at 6-12 months and then at 18-24 months if no change Solitary nodule size: >8 mm * either low or high risk patients - consider follow-up CT at 3 months, and/or CT-PET, and/or biopsy Multiple nodules size: <6 mm * Low risk patients: no routine follow-up * high risk patients: optional CT at 12 months Multiple nodules size: 6-8 mm * Low risk patients: follow-up at 3-6 months, then consider further follow-up at 18-24 months * high risk patients: follow-up at 3-6 months, then at 18-24 months if no change Multiple nodules size: >8 mm * Low risk patients: follow-up at 3-6 months, then consider further follow-up at 18-24 months * high risk patients: follow-up at 3-6 months, then at 18-24 months if no change Note: newly detected indeterminate nodule in persons 35 years of age or older. * Low risk patients: minimal or absent history of smoking and/or other known risk factors * high risk patients: history of smoking or of other known risk factors (e.g. first degree relative with lung cancer, or exposure to asbestos, radon, uranium) * if a nodule up to 8 mm is partly solid or is ground glass further follow-up is required after 24 m onths to exclude possible slow growing adenocarcinoma (DEISI) SUBSOLID NODULES Solitary pure ground-glass nodule * nodule size <6 mm - no CT follow-up required * nodule size >=6 mm - follow-up CT at 6-12 months, then every 2 years until 5 years Solitary part-solid nodule * nodule size <6 mm - no CT follow-up required * nodule size >=6 mm - follow-up CT at 3-6 months. If unchanged, and solid component remains <6 mm, then annual follow-up for 5 years Multiple subsolid nodules * nodule size <6 mm - follow-up CT at 3-6 months, consider further follow-up at 2 and 4 years if sta ble * nodule size >=6 mm - follow-up CT at 3-6 months, subsequent management based on the most suspiciou s nodule(s) The above report was generated using voice recognition software. It may contain grammatical, syntax o r spelling errors. ACT 112: Negative or not required by law. Electronically signed by: Kwame Carmen M.D. 11/28/2019 7:11 AM
--- NOTE | 2019-11-28 07:19 | CT Scan Report ---
CHEST CTA for PULMONARY ARTERIES CT DOSE: 1681.87 mGycm HISTORY: Unresponsive. Ventilator dependent. Assess for pulmonary embolus. TECHNIQUE: Multiaxial CT images of the chest were performed following the intravenous administration of contrast to evaluate the pulmonary arteries. Maximal intensity projection images were also obtaine d. A dose lowering technique was utilized adhering to the principles of ALARA. COMPARISON STUDY: Chest CT 03/23/2019. FINDINGS: No evidence for pulmonary embolus, aortic aneurysm, or aortic dissection. Emphysema. Bronch ial wall thickening. No focal lung consolidations. Dependent atelectasis is seen on the right. Indete rminate small nodules measuring 8 mm and 4 mm in the left upper lobe. Nonspecific subpleural nodule m easuring 4 mm in the right lower lobe and a 4 mm nodule within the right lung apex. The heart is norm al in size. No pleural or pericardial effusions. Partially visualized cervical spinal fusion hardware . Endotracheal tube terminates at the mid trachea. Small amount of mucoid material within the distal trachea and right mainstem bronchus. Partially opacified right upper lobe segmental bronchus. Old, he aled bilateral rib fractures. No mediastinal or hilar lymphadenopathy. Normal esophagus. IMPRESSION: 1. No evidence for pulmonary embolus. 2. Advanced emphysema and mild bronchial wall thickening. 3. A few scattered subcentimeter indeterminate pulmonary nodules with the largest in the left upper l obe measuring 8 mm. Some of these are new compared to the prior study. Please refer to the chart belo w for recommended follow-up. 4. The endotracheal tube terminates at the mid trachea. 5. Small amount of mucoid material within the distal trachea, right main stem bronchus, and a segment al right upper lobe bronchus. Please refer to below summary of Fleischner criteria recommendations for follow-up of incidental CT n odules (Joselo Cole, Guidelines for management of small pulmonary nodules detected on CT scans: A sta tement from the Fleischner Society, Radiology 237: [phone].) SOLID NODULES Solitary nodule size: <6 mm * Low risk patients: no follow-up needed * high risk patients: optional CT at 12 months Solitary nodule size: 6-8 mm * Low risk patients: follow-up at 6-12 months, then consider further follow-up at 18-24 months * high risk patients: initial follow-up CT at 6-12 months and then at 18-24 months if no change Solitary nodule size: >8 mm * either low or high risk patients - consider follow-up CT at 3 months, and/or CT-PET, and/or biopsy Multiple nodules size: <6 mm * Low risk patients: no routine follow-up * high risk patients: optional CT at 12 months Multiple nodules size: 6-8 mm * Low risk patients: follow-up at 3-6 months, then consider further follow-up at 18-24 months * high risk patients: follow-up at 3-6 months, then at 18-24 months if no change Multiple nodules size: >8 mm * Low risk patients: follow-up at 3-6 months, then consider further follow-up at 18-24 months * high risk patients: follow-up at 3-6 months, then at 18-24 months if no change Note: newly detected indeterminate nodule in persons 35 years of age or older. * Low risk patients: minimal or absent history of smoking and/or other known risk factors * high risk patients: history of smoking or of other known risk factors (e.g. first degree relative with lung cancer, or exposure to asbestos, radon, uranium) * if a nodule up to 8 mm is partly solid or is ground glass further follow-up is required after 24 m onths to exclude possible slow growing adenocarcinoma (DEISI) SUBSOLID NODULES Solitary pure ground-glass nodule * nodule size <6 mm - no CT follow-up required * nodule size >=6 mm - follow-up CT at 6-12 months, then every 2 years until 5 years Solitary part-solid nodule * nodule size <6 mm - no CT follow-up required * nodule size >=6 mm - follow-up CT at 3-6 months. If unchanged, and solid component remains <6 mm, then annual follow-up for 5 years Multiple subsolid nodules * nodule size <6 mm - follow-up CT at 3-6 months, consider further follow-up at 2 and 4 years if sta ble * nodule size >=6 mm - follow-up CT at 3-6 months, subsequent management based on the most suspiciou s nodule(s) ACT 112: Negative or not required by law. Electronically signed by: Gurinder White M.D. 11/28/2019 7:18 AM
--- NOTE | 2019-11-28 07:23 | CT Scan Report ---
ABDOMEN AND PELVIS CT WITH IV CONTRAST CT DOSE: HISTORY: lactic acidosis, hypotension TECHNIQUE: Multiaxial CT images of the abdomen and pelvis were performed following the use of intrave nous contrast. A dose lowering technique was utilized adhering to the principles of ALARA. COMPARISON STUDY: None. FINDINGS: Severe emphysema at the lung bases. The stomach is mildly distended and fluid-filled. No di lated loops of small bowel to suggest a small bowel obstruction. Moderate well-formed stool seen with in the colon. No bowel wall thickening. The visualized appendix is unremarkable. There is a Wagoner cat heter within the bladder. The prostate gland is mildly enlarged. No pelvic or retroperitoneal lymphad enopathy. Mild thickening at the fundus of the gallbladder favors adenomyomatosis. There is a punctat e gallstone. The liver, spleen, adrenal glands, pancreas, and kidneys are unremarkable. No hydronephr osis. The main portal vein is patent. Postoperative changes within the left femoral neck. No pneumope ritoneum. No pneumatosis. Questionable thickening at the distal sigmoid colon is likely due to underd istention. There is no pericolonic inflammatory change to suggest an acute process. IMPRESSION: 1. Mildly distended and fluid-filled stomach. 2. However, no distended loops of small bowel to suggest an obstruction. 3. No definite bowel wall thickening. 4. No hydronephrosis. 5. Normal appendix. 6. Advanced emphysema. 7. Cholelithiasis. ACT 112: Negative or not required by law. Electronically signed by: Gurinder White M.D. 11/28/2019 7:22 AM
--- NOTE | 2019-11-28 07:36 | XRay Report ---
XR chest 1V portable HISTORY: Respiratory failure. COMPARISON: Chest 11/27/2019. FINDINGS: The tip of the nasogastric tube turns in the proximal stomach. The fenestrated line termina piper at the gastroesophageal junction. This could be advanced by approximately 5 cm. Endotracheal tube terminates proximal a 5.4 cm from the danny. Cervical spinal fusion hardware is again noted. Right jugular central venous catheter terminates in the proximal SVC. No pneumothorax. No pleural effusions . No new focal lung consolidations to suggest pneumonia. The heart is normal in size. Mild interstiti al prominence is again noted. This may represent mild congestive change. IMPRESSION: 1. The endotracheal tube terminates 5.4 cm from the danny. 2. Nasogastric tube terminates in the proximal stomach with the fenestrated line at the gastroesophag eal junction. This could be advanced by approximately 5 cm. 3. Mild interstitial prominence which may be chronic. ACT 112: Negative or not required by law. Electronically signed by: Gurinder White M.D. 11/28/2019 7:35 AM
--- NOTE | 2019-11-28 07:50 | XRay Report ---
XR chest 1V portable HISTORY: Central venous line insertion. COMPARISON: Chest 11/27/2019. FINDINGS: Endotracheal tube terminates 5.7 cm from the danny. Nasogastric tube likely terminates in the stomach. The tip is not included on this study. The lungs are hyperexpanded with advanced emphyse matous changes. Interval placement of a right jugular central venous catheter which terminates at the expected location of the proximal SVC. No pneumothorax. No pleural effusions. IMPRESSION: 1. Satisfactory support line placement. 2. No pneumothorax. 3. Advanced emphysema. ACT 112: Negative or not required by law. Electronically signed by: Gurinder White M.D. 11/28/2019 7:49 AM
--- NOTE | 2019-11-28 07:51 | XRay Report ---
KUB HISTORY: NG tube placement COMPARISON: Abdomen and pelvis CT 11/27/2019. FINDINGS: The bowel gas pattern is unremarkable. There are no dilated loops of small bowel to suggest an obstruction. No renal calculi. No ureteral calculi. No pneumoperitoneum or pneumatosis. Nasogast alla tube terminates in the proximal stomach with the fenestrated line at the gastroesophageal junctio n. This should be advanced by approximately 5 cm. Contrast within the renal collecting systems from t he recent CT examination. Cannulated screws within the left femoral neck. Advanced emphysema. IMPRESSION: Nasogastric tube terminates in the proximal stomach with the fenestrated line at the gastroesophageal junction. This should be advanced by approximately 5 cm. ACT 112: Negative or not required by law. Electronically signed by: Gurinder White M.D. 11/28/2019 7:50 AM
[2019-11-28] MEDS ORDERED: FLUTICASONE/VILANTEROL 200/25MCG 14 PUFFS/INHALER INH SCH (09:00)
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
[2019-11-28] MEDS ORDERED: ROCURONIUM BROMIDE 10 MG/ML 5 ML VIAL IV ONE (10:11)
[2019-11-28] MEDS ORDERED: NALOXONE HCL 0.4 MG/1 ML VIAL/CARP ONE (10:17)
[2019-11-28] MEDS ORDERED: NALOXONE HCL 0.4 MG/1 ML VIAL/CARP IV STA (10:26)
[2019-11-28] MEDS ORDERED: HEPARIN SOD 5,000 UNIT/0.5 ML VIAL SQ ONE (10:30)
[2019-11-28 10:54] LABS: iSTAT Arterial Blood Gas HCO3 27 meg/L (19-24); iSTAT Arterial Blood Gas pCO2 73 mmHg (35-46); iSTAT Arterial Blood Gas pH 7.17 (7.35-7.45); iSTAT Arterial Blood Gas pO2 74 mmHg (80-95); iSTAT Carbon Dioxide 29 mmol/L (24-31); iSTAT FiO2 30 %; iSTAT Site Art Line
[2019-11-28] MEDS ORDERED: SODIUM PHOSPHATE 3 MMOL/1 ML 5 ML VIAL IV ONE (11:47)
--- NOTE | 2019-11-28 11:48 | Hospitalist Progress Note ---
Date of Service November 28, 2019 Assessment & Plan (1) Unresponsiveness: Was found to be unresponsive at home by the Has a pulse on arrival of EMS and the patient was intubated in field Causes could be multifactorial including use of narcotics/polypharmacy/respiratory failure/infection Urine tox screen showed positivity for ecstasy, benzodiazepines and methadone Has been extubated this morning Remains drowsy and not been communicating yet No acute distress at rest (2) Shock: Noted to have very low blood pressure on arrival Required vasopressors to maintain blood pressure Will wean off vasopressors this morning Blood pressure remains around 110s Possible sepsis is not ruled out yet No evidence of pneumonia and/or urinary tract infection as of yet Has been getting intravenous antibiotics with cefepime, doxycycline and vancomycin Awaiting blood cultures and urine cultures We will continue current antibiotics for now (3) Acute respiratory failure with hypoxia: Has history of COPD without any exacerbation Came in with acute respiratory failure Required intubation in field Appreciate irish moss gatherer input and recommendation Has been extubated this morning Has been getting intravenous methylprednisone Using oxygen mask at 5 L maintain saturation Hypophosphatemia We will replace and monitor (4) COPD (chronic obstructive pulmonary disease): As above Has been getting intravenous methylprednisone Continue nebs treatment as well (5) Bipolar disorder: Antipsychotic medications are on hold now Please start dose as soon as possible Degenerative disc disease Has been taking hydrocodone occasionally for that Admission and Anticipated Discharge Date Admission Date: November 27, 2019 Subjective The patient was seen and examined in ICU He has been extubated this morning and remains very drowsy Review of Systems Review of Systems: Unobtainable due to cognitive status Physical Exam Physical Exam: Lying in bed with minimal shortness of breath at rest Constitutional: well developed, well nourished, + acute distress and + ill appearing Eyes: Closed ENMT: external ear and nose normal, oropharynx normal Neck: trachea midline, no thyromegaly Respiratory: + respiratory distress (Minimal shortness of breath at rest on oxygen mask) Auscultation: + diminished lung sounds and + crackles (Mild bibasilar crackles) Cardiovascular: Rate/Rhythm: regular rate and regular rhythm Heart Sounds: no murmur Gastrointestinal (Abdomen): Inspection/Auscultation: abdomen normal to inspection and normal bowel sounds Percussion/Palpation: abdomen soft; abdomen nontender Musculoskeletal: No acute arthritis involving any joints Neurologic: moves all extremities Very drowsy and lethargic, status post extubation. Moving all limbs Lymphatic: no cervical or axillary lymphadenopathy Results & Data Results & Data ([facility]) Vital Signs (Past 12 Hours) Vital Signs Pulse Resp BP Pulse Ox 11/28/19 10:38 75 25 H 118/79 89 L 11/28/19 10:30 73 30 H 92 11/28/19 10:14 88 10 L 126/71 96 11/28/19 10:07 95 H 18 118/67 90 11/28/19 09:37 77 12 114/59 L 98 11/28/19 09:07 75 12 95/62 L 98 11/28/19 09:02 77 12 99 11/28/19 09:01 74 7 L 93/57 L 96 11/28/19 09:00 74 16 96 11/28/19 08:45 74 22 86/60 L 92 11/28/19 08:38 75 86/60 L 96 11/28/19 08:07 69 90/61 L 97 11/28/19 08:00 72 98 11/28/19 07:51 68 105/77 99 11/28/19 07:15 61 27 H 100 11/28/19 07:07 62 109/78 100 11/28/19 07:00 65 98 11/28/19 06:07 61 112/80 100 11/28/19 05:38 63 113/72 100 11/28/19 05:25 26 H 11/28/19 05:07 63 116/77 100 11/28/19 05:02 65 25 H 99 11/28/19 05:00 64 96 11/28/19 04:37 65 114/79 100 11/28/19 04:07 66 95/62 L 100 11/28/19 03:37 64 130/92 100 11/28/19 03:07 65 115/82 11/28/19 03:00 65 100 11/28/19 02:37 66 111/80 100 11/28/19 02:07 65 111/81 100 11/28/19 02:02 68 24 100 11/28/19 01:37 64 132/90 100 11/28/19 01:07 64 118/82 100 11/28/19 00:37 61 110/77 100 11/28/19 00:06 62 95/73 L 100 11/28/19 00:01 24 11/27/19 23:57 63 81/64 L 11/27/19 23:36 63 80/50 L 100 Laboratory Results Short CBC 11/27/19 11/28/19 Range/Units 18:13 04:44 WBC 17.02 H 15.28 H (4.8-10.8) K/uL Hgb 13.3 L 11.9 L (14.0-18.0) g/dL Hct 40.9 L 36.7 L (42-52) % Plt Count 206 196 (130-400) K/uL BMP 11/27/19 11/28/19 18:13 04:44 Sodium 138 136 Potassium 4.0 4.4 Chloride 101 106 Carbon Dioxide 35 H 26 BUN 11 14 Creatinine 1.59 H 1.30 Glucose 60 L 107 H Calcium 8.4 L 7.4 L Cardiac Enzymes 11/27/19 11/27/19 11/28/19 Range/Units 18:13 22:54 04:44 Troponin I 0.075 H* 0.527 H* 0.546 H* (0-0.045) ng/ml 11/28/19 Range/Units 10:32 Troponin I 0.792 H* (0-0.045) ng/ml Liver Function 11/27/19 11/28/19 Range/Units 18:13 04:44 Total Bilirubin 0.2 0.6 (0.2-1) mg/dl AST 19 26 (15-37) U/L ALT 22 22 (12-78) U/L Alkaline Phosphatase 92 70 (45-117) U/L Albumin 3.2 L 2.7 L (3.4-5.0) gm/dl Urine 11/27/19 Range/Units 19:27 Urine Color Yellow Urine Appearance Clear (Clear) Urine pH 5.0 (4.5-7.5) Ur Specific [place] 1.014 (1.000-1.030) Urine Protein 1+ H (Negative) Urine Glucose (UA) Negative (Negative) Medications Administered Current Inpatient Medications Albuterol (Duoneb) 3 ml NEB Q6R LINDA Stop: 12/27/19 22:29 Last Admin: 11/28/19 07:42 Dose: 3 ml Documented by: Albuterol (Ventolin Hfa) 2 puffs INH QID PRN PRN Reason: shortness of breath or wheezing Stop: 12/27/19 22:32 Fluticasone/Vilanterol (Breo Ellipta 200/25 Mcg Inh) 1 puffs INH DAILY [facility] Stop: 12/28/19 08:59 Last Admin: 11/28/19 07:47 Dose: Not Given Documented by: Heparin Sodium (Porcine) (Heparin Sodium (Porcine)) 5,000 units SQ Q12 LINDA Stop: 12/28/19 20:59 Norepinephrine Bitartrate 8 mg (/ Dextrose) 508 mls @ 0 mls/hr IV .Q0M [facility]; Protocol Stop: 12/27/19 20:29 Last Titration: 11/28/19 10:26 Dose: Infused Documented by: Sodium Chloride (Nss 1000ml) 1,000 mls @ 125 mls/hr IV .Q8H [facility] Stop: 12/27/19 22:32 Last Admin: 11/28/19 07:46 Dose: 125 mls/hr Documented by: Doxycycline Hyclate 100 mg/ (Dextrose) 110 mls @ 50 mls/hr IV Q12H [facility] Stop: 12/04/19 22:59 Last Infusion: 11/28/19 02:55 Dose: Infused Documented by: Cefepime HCl 2,000 mg/ Syringe 20 mls @ 5.5 mls/min IV Q12H [facility]; Protocol Stop: 12/05/19 05:59 Last Admin: 11/28/19 06:03 Dose: 5.5 mls/min Documented by: Methylprednisolone 40 mg/ (Syringe) 0.64 mls @ 1.5 mls/min IV TID [facility] Stop: 12/27/19 22:59 Last Admin: 11/28/19 07:47 Dose: 1.5 mls/min Documented by: Vasopressin 20 units/ Sodium (Chloride) 101 mls @ 0 mls/hr IV .Q0M [facility] Stop: 12/28/19 00:14 Last Infusion: 11/28/19 07:48 Dose: 0 unit/min, 0 mls/hr Documented by: Vancomycin HCl 1,000 mg/ (Sodium Chloride) 270 mls @ 125 mls/hr IV Q16H [facility] Stop: 11/30/19 01:45 Ioversol (Optiray 320 125ml) 118 ml IV ONCE PRN PRN Reason: Interaction Checking Stop: 12/01/19 21:31 Last Admin: 11/27/19 21:33 Dose: 1 ml Documented by: Miscellaneous (Icu Protocol For Hyperglycemia) 1 ea N/A PRN PRN; Protocol PRN Reason: Hyperglycemia Protocol Stop: 11/29/19 22:32 Miscellaneous Information (Cefepime Consult Active) 1 ea N/A UD PRN PRN Reason: Consult Stop: 12/27/19 22:35 Miscellaneous Information (Consult) 1 ea N/A UD PRN PRN Reason: Consult Stop: 12/28/19 01:23
--- NOTE | 2019-11-28 12:26 | Pharmacy Report ---
Pharmacy Abx Dose Short Note - Date of Service November 28, 2019 - Assessment & Plan Assessment * 59 year old M receiving VANCOMYCIN + CEFEPIME + DOXYCYCLINE for empiric treatment of septic shock, possible respiratory source. Pharmacy consulted to dose vancomycin + cefepime. * Admitted to ICU for respiratory failure requiring intubation, also requiring pressor support overnight * Patient extubated this AM and pressors weaned off * + MRSA nares * CXR read as "No pleural effusions. No new focal lung consolidations to suggest pneumonia. The heart is normal in size. Mild interstitial prominence is again noted. This may represent mild congestive change" * Procal only 0.08 * Sputum cx collected this AM. * No h/o pseudomonas colonization/prior infxn per available [facility] cx records. No recent hospitalizations at [facility]. Uncertain if pt has had recent abx exposure or frequent steroid use for COPD exacerbation. * + fever and leukocytosis * SCr improving 1.59 --> 1.3 (baseline ~0.9); UOP ~0.5ml/kg/hr Plan Vancomycin * Loading dose : 1500mg (~25mg/kg) x 1 given this AM * Maint dose: 1000mg (~15mg/kg) IV Q 16 hrs * Goal trough level for pulm infxn, sepsis : 15 to 20 mcg/mL * Will defer ordering trough level at this time as renal fxn likely improving and dosing interval may need adjusted in next 24 hrs. Cefepime * eCrCl ~30-60cc/min, continue 2gm IV Q 12 hrs Pharmacy will continue to follow and will adjust dose/frequency as necessary. Thank you.
[2019-11-28 13:18] LABS: iSTAT Arterial Blood Gas HCO3 28 meg/L (19-24); iSTAT Arterial Blood Gas pCO2 65 mmHg (35-46); iSTAT Arterial Blood Gas pH 7.24 (7.35-7.45); iSTAT Arterial Blood Gas pO2 81 mmHg (80-95); iSTAT Carbon Dioxide 30 mmol/L (24-31); iSTAT FiO2 30 %; iSTAT Site Art Line
[2019-11-28] MEDS: ACETAMINOPHEN 325 MG TAB PO PRN (16:24)
--- NOTE | 2019-11-28 16:52 | Communication Note ---
Date of Service: November 28, 2019 Patient seen and examined. EMR reviewed. Images were reviewed. Discussed with nursing and critical care HERBER. 59-year-old male with a history of advanced COPD found unresponsive. He was intubated and brought to the ICU. He initially required vasopressor agents. This morning the patient's mental status has improved. He was awake alert on the ventilator and quite anxious to have the tube withdrawn. He was subsequently extubated. He will intermittently be placed on BiPAP as needed. Please refer to the critical care HERBER note for additional details. Agree with assessment and plan as noted by JJ marx Coding Level of Care Code None
[2019-11-28] MEDS: ALBUT/IPRATROP 3MG/0.5MG NEB 3 ML VIAL NEB PRN (17:25)
[2019-11-28] MEDS ORDERED: VANCOMYCIN HCL 1,000 MG in SODIUM CHLORIDE 0.9% 250 ML IV SCH (18:00)
--- NOTE | 2019-11-28 19:15 | Electrocardiogram Report ---
Test Reason : Blood Pressure : / mmHG Vent. Rate : 060 BPM Atrial Rate : 060 BPM P-R Int : 116 ms QRS Dur : 078 ms QT Int : 396 ms P-R-T Axes : 095 084 083 degrees QTc Int : 396 ms Poor data quality, interpretation may be adversely affected Normal sinus rhythm Nonspecific T wave abnormality When compared with ECG of 20-MAR-2019 11:10, No significant change Confirmed by Arnie Tinajero ([id number]) on 11/28/2019 7:15:08 PM Referred By: REFERRED SELF Confirmed By:Arnie Tinajero
[2019-11-28] MEDS: OXYCODONE HCL IR 5 MG TAB (IMMEDIATE RELEASE) PO PRN (20:07)
[2019-11-28] MEDS: HEPARIN SOD 5,000 UNIT/0.5 ML VIAL SQ SCH (20:08)
--- NOTE | 2019-11-28 22:44 | Electrocardiogram Report ---
Test Reason : Blood Pressure : / mmHG Vent. Rate : 065 BPM Atrial Rate : 065 BPM P-R Int : 136 ms QRS Dur : 070 ms QT Int : 414 ms P-R-T Axes : 064 081 039 degrees QTc Int : 430 ms Normal sinus rhythm Nonspecific ST and T wave abnormality Abnormal ECG When compared with ECG of 27-NOV-2019 18:05, ST elevation has replaced ST depression in Anterior leads Confirmed by Arnie Tinajero ([id number]) on 11/28/2019 10:44:21 PM Referred By: REFERRED SELF Confirmed By:Arnie Tinajero
--- NOTE | 2019-11-28 22:48 | Electrocardiogram Report ---
Test Reason : Blood Pressure : / mmHG Vent. Rate : 065 BPM Atrial Rate : 070 BPM P-R Int : 000 ms QRS Dur : 074 ms QT Int : 406 ms P-R-T Axes : 000 086 076 degrees QTc Int : 422 ms Poor data quality, interpretation may be adversely affected Sinus rhythm Nonspecific ST and T wave abnormality Abnormal ECG When compared with ECG of 27-NOV-2019 23:53, No significant change Confirmed by Arnie Tinajero ([id number]) on 11/28/2019 10:48:20 PM Referred By: REFERRED SELF Confirmed By:Arnie Tinajero
--- NOTE | 2019-11-28 22:56 | Electrocardiogram Report ---
Test Reason : Blood Pressure : / mmHG Vent. Rate : 064 BPM Atrial Rate : 064 BPM P-R Int : 160 ms QRS Dur : 086 ms QT Int : 362 ms P-R-T Axes : 083 087 072 degrees QTc Int : 373 ms Normal sinus rhythm Nonspecific ST and T wave abnormality Abnormal ECG When compared with ECG of 28-NOV-2019 01:28, QT has shortened Confirmed by Arnie Tinajero ([id number]) on 11/28/2019 10:56:31 PM Referred By: REFERRED SELF Confirmed By:Arnie Tinajero
[2019-11-29] MEDS: ALBUT/IPRATROP 3MG/0.5MG NEB 3 ML VIAL NEB PRN (04:12)
[2019-11-29 04:42] LABS: Basophils # (auto) 0.01 K/uL (0-0.2); Hematocrit (blood only) 33.2 % (42-52); Hemoglobin 10.9 g/dL (14.0-18.0); Immature Granulocytes % (auto) 0.5 %; Lymphocytes # (auto) 0.87 K/uL (1.2-3.4); Mean Corpuscular Hemoglobin 30.4 pg (25-34); Mean Corpuscular Hgb Conc 32.8 g/dL (32-36); Mean Corpuscular Volume 92.7 fL (80-100); Mean Platelet Volume 11.2 fL (7.4-10.4); Monocytes # (auto) 1.63 K/uL (0.11-0.59); Monocytes % (auto) 7.5 %; Neutrophils # (auto) 19.09 K/uL (1.4-6.5); Platelet Count 150 K/uL (130-400); Red Blood Count 3.58 M/uL (4.7-6.1)
[2019-11-29] MEDS ORDERED: ALPRAZolam 0.5 MG TABLET ONE (04:58)
[2019-11-29] MEDS: OXYCODONE HCL IR 5 MG TAB (IMMEDIATE RELEASE) PO PRN ×2 (05:00→21:07)
[2019-11-29 05:03] LABS: Albumin Level 3.1 gm/dl (3.4-5.0); Calcium 8.2 mg/dl (8.5-10.1); Creatinine Clr Calc Pharmacy 68.8 ml/min; Est GFR (Non-African American) 76.8; Magnesium 1.9 mg/dl (1.8-2.4); Potassium 4.8 mmol/L (3.5-5.1)
[2019-11-29 05:05] LABS: Bilirubin,Total 0.6 mg/dl (0.2-1); Globulin 3.2 gm/dl (2.5-4.0); Phosphorus 3.2 mg/dl (2.5-4.9); Total Protein 6.3 gm/dl (6.4-8.2)
[2019-11-29] MEDS: CEFEPIME 2,000 MG in SYRINGE 7.5 ML IV SCH (05:52)
[2019-11-29] MEDS: SODIUM CHLORIDE 0.9% 1000ML 1,000 ML IV SCH ×2 (05:52→09:29)
[2019-11-29 06:10] LABS: iSTAT Allen Test Pass; iSTAT Arterial Blood Gas HCO3 27 meg/L (19-24); iSTAT Arterial Blood Gas pCO2 57 mmHg (35-46); iSTAT Arterial Blood Gas pH 7.29 (7.35-7.45); iSTAT Arterial Blood Gas pO2 83 mmHg (80-95); iSTAT Carbon Dioxide 29 mmol/L (24-31); iSTAT FiO2 30 %; iSTAT Site Art Line
[2019-11-29] MEDS ORDERED: MAGNESIUM SULFATE / D5W 1 GM/100 ML BAG IV ONE (06:45)
[2019-11-29] MEDS: ACETAMINOPHEN 325 MG TAB PO PRN (07:17)
[2019-11-29] MEDS: HEPARIN SOD 5,000 UNIT/0.5 ML VIAL SQ SCH ×2 (07:18→21:08)
[2019-11-29] MEDS: VANCOMYCIN HCL 1,000 MG in SODIUM CHLORIDE 0.9% 250 ML IV SCH ×2 (07:20→21:09)
[2019-11-29] MEDS: FORMOTEROL 20 MCG/2 ML VIAL NEB SCH ×2 (07:38→19:29)
[2019-11-29] MEDS: BUDESONIDE 0.5 MG/2 ML VIAL (PULMICORT) NEB SCH ×2 (07:38→19:29)
--- NOTE | 2019-11-29 07:56 | XRay Report ---
XR chest 1V portable HISTORY: Respiratory failure COMPARISON: Chest 11/28/2019. FINDINGS: No pneumothorax. The lungs are hyperexpanded with apical predominant emphysematous changes. The heart is normal in size. Right jugular central venous catheter terminates at the expected locati on of the proximal SVC. Cervical spinal fusion hardware is noted. Endotracheal tube and nasogastric t ube is been removed. Stable mild interstitial thickening which may be chronic. IMPRESSION: 1. Emphysema with mild interstitial thickening which may be chronic. 2. Interval removal of the endotracheal and nasogastric tubes. 3. No new focal lung consolidations. ACT 112: Negative or not required by law. Electronically signed by: Gurinder White M.D. 11/29/2019 7:55 AM
[2019-11-29] MEDS ORDERED: methylPREDNISolone 60 MG in SYRINGE 0 ML IV SCH (09:00)
[2019-11-29] MEDS: DOXYCYCLINE HYCLATE 100 MG in DEXTROSE 5% 100 ML IV SCH (09:29)
[2019-11-29] MEDS ORDERED: SERTRALINE HCL 100 MG TABLET PO ONE (09:45)
[2019-11-29] MEDS: ALBUT/IPRATROP 3MG/0.5MG NEB 3 ML VIAL NEB SCH ×3 (09:49→19:29)
--- NOTE | 2019-11-29 10:10 | Pharmacy Report ---
Pharmacy Abx Dose Short Note - Date of Service November 29, 2019 - Assessment & Plan Assessment * 59 year old M receiving VANCOMYCIN + LEVOFLOXACIN for empiric treatment of septic shock, possible respiratory source. Pharmacy consulted to dose vancomycin. * Today is Day # 3 Vancomycin, Day # 1 Levofloxacin (however received 2 days of Cefepime + Doxycycline prior) * Admitted to ICU for respiratory failure requiring intubation, also requiring pressor on ICU admission * Patient extubated and pressors weaned off on 11/27 * + MRSA nares * today's CXR read as "Emphysema with mild interstitial thickening which may be chronic, No new focal lung consolidations" * Procal 0.08 --> 0.65 * Sputum cx collected this 11/27, results pending however gram stain showing few GPC and many polys * No h/o pseudomonas colonization/prior infxn per available [facility] cx records. No recent hospitalizations at [facility]. Uncertain if pt has had recent abx exposure or frequent steroid use for COPD exacerbation. * + fever and leukocytosis * Renal fxn continues to improve: SCr 1.59 --> 1.3--> 1.05 (baseline ~0.9); UOP ~0.9ml/kg/hr Plan Vancomycin * Increase maint dose to 1000mg (~15mg/kg) IV Q 12 hrs due to improved renal fxn; dosing based upon both AUC algorithm and p'kinetic estimates * Goal trough level for pulm infxn, sepsis : 15 to 20 mcg/mL * Trough level ordered w/ 3rd maint dose of new regimen Pharmacy will continue to follow and will adjust dose/frequency as necessary. Thank you.
[2019-11-29] MEDS: guaiFENesin 600 MG TABCR PO SCH ×2 (10:17→21:07)
[2019-11-29] MEDS: LEVOFLOXACIN/D5W 750 MG/150 ML BAG IV SCH (10:21)
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
--- NOTE | 2019-11-29 11:06 | Hospitalist Progress Note ---
Date of Service November 29, 2019 Assessment & Plan (1) Unresponsiveness: Was found to be unresponsive at home by the Has a pulse on arrival of EMS and the patient was intubated in field Causes could be multifactorial including use of narcotics/polypharmacy/respiratory failure/infection Urine tox screen showed positivity for ecstasy, benzodiazepines and methadone Has been extubated this morning 11/28/2019 Better but remains mildly shortness of breath at rest He admits to have taken 2 of oxycodone and 2 of Xanax on the day of admission, likely complicating his current situation (2) Shock: Noted to have very low blood pressure on arrival Required vasopressors to maintain blood pressure Will wean off vasopressors this morning Blood pressure remains around 120s Possible sepsis is not ruled out yet No evidence of pneumonia and/or urinary tract infection as of yet Has been getting intravenous antibiotics with cefepime, doxycycline and vancomycin Awaiting blood cultures and urine cultures and sputum culture We will continue current antibiotics for now Repeat chest x-ray did not show any consolidation We will continue current antibiotics (3) Acute respiratory failure with hypoxia: Has history of COPD without any exacerbation Came in with acute respiratory failure Required intubation in field Appreciate ham pumper input and recommendation Has been extubated this morning Has been getting intravenous methylprednisone Using oxygen mask at 5 L maintain saturation Has chronic respiratory failure and uses oxygen at home Hypophosphatemia We will replace and monitor Normalized (4) COPD (chronic obstructive pulmonary disease): As above Has been getting intravenous methylprednisone Continue nebs treatment as well (5) Bipolar disorder: Antipsychotic medications are on hold now Please start dose as soon as possible Degenerative disc disease Has been taking hydrocodone occasionally for that Admission and Anticipated Discharge Date Admission Date: November 27, 2019 Subjective The patient was seen and examined in ICU He has been extubated this morning and remains very drowsy 11/29/2019 The patient was seen and examined in ICU He is out of bed on a chair with moderate shortness of breath Pleasantly confused and sometimes getting around in the room Denies any other significant symptoms Review of Systems Review of Systems: All systems reviewed and are unremarkable except as noted below Respiratory: + cough and + dyspnea Cardiovascular: no chest pain Neurologic: Pleasantly confused Physical Exam Physical Exam: Sitting on a chair with moderate shortness of breath Constitutional: well developed, well nourished, + acute distress and + ill appearing Eyes: PERRL, conjunctivae normal, anicteric sclerae ENMT: external ear and nose normal, oropharynx normal Neck: trachea midline, no thyromegaly Respiratory: + respiratory distress (Minimal shortness of breath at rest on oxygen mask) Auscultation: + diminished lung sounds, + crackles (Mild bibasilar crackles) and + wheezes (Minimal wheezing bilaterally) Cardiovascular: Rate/Rhythm: regular rate and regular rhythm Heart Sounds: no murmur Gastrointestinal (Abdomen): Inspection/Auscultation: abdomen normal to inspection and normal bowel sounds Percussion/Palpation: abdomen soft; abdomen nontender Neurologic: moves all extremities Pleasantly confused with occasional agitation Lymphatic: no cervical or axillary lymphadenopathy Results & Data Results & Data ([facility]) Vital Signs (Past 12 Hours) Vital Signs Temp Pulse Pulse Resp BP Pulse Ox 11/29/19 10:13 36.9 C 68 19 95 11/29/19 10:00 73 21 99 11/29/19 09:50 70 22 97 11/29/19 09:10 67 19 123/86 92 11/29/19 08:18 77 23 155/75 H 90 11/29/19 08:00 70 17 11/29/19 07:40 74 22 96 11/29/19 07:10 68 18 131/84 92 11/29/19 07:00 69 16 11/29/19 06:00 71 31 H 11/29/19 05:10 63 9 L 117/80 96 11/29/19 05:00 69 12 99 11/29/19 04:14 53 L 41 H 94 11/29/19 04:12 53 L 41 H 94 11/29/19 04:10 72 11 L 132/87 97 11/29/19 04:00 85 18 91 11/29/19 03:10 72 20 134/102 H 92 11/29/19 03:00 72 19 92 11/29/19 02:10 68 15 132/77 95 11/29/19 02:00 75 13 97 11/29/19 01:11 76 15 160/86 H 92 11/29/19 01:00 67 14 96 11/29/19 00:10 70 14 126/75 97 11/29/19 00:00 69 17 96 11/28/19 23:10 66 13 114/84 97 11/28/19 23:00 69 13 96 Laboratory Results Short CBC 11/29/19 Range/Units 04:27 WBC 21.70 H (4.8-10.8) K/uL Hgb 10.9 L (14.0-18.0) g/dL Hct 33.2 L (42-52) % Plt Count 150 (130-400) K/uL BMP 11/29/19 04:27 Sodium 138 Potassium 4.8 Chloride 107 Carbon Dioxide 29 BUN 22 H D Creatinine 1.05 Glucose 109 H Calcium 8.2 L Cardiac Enzymes 11/28/19 Range/Units 10:32 Troponin I 0.792 H* (0-0.045) ng/ml Liver Function 11/29/19 Range/Units 04:27 Total Bilirubin 0.6 (0.2-1) mg/dl AST 56 H (15-37) U/L ALT 29 (12-78) U/L Alkaline Phosphatase 67 (45-117) U/L Albumin 3.1 L (3.4-5.0) gm/dl Medications Administered Current Inpatient Medications Acetaminophen (Tylenol) 650 mg PO Q4H PRN PRN Reason: Pain or Fever Stop: 12/28/19 13:17 Last Admin: 11/29/19 07:17 Dose: 650 mg Documented by: Albuterol (Ventolin Hfa) 2 puffs INH QID PRN PRN Reason: shortness of breath or wheezing Stop: 12/27/19 22:32 Albuterol (Duoneb) 3 ml NEB Q6R LINDA Stop: 12/29/19 09:44 Last Admin: 11/29/19 09:49 Dose: 3 ml Documented by: Alprazolam (Xanax) 0.5 mg PO Q8H PRN PRN Reason: Anxiety Stop: 12/29/19 04:47 Budesonide (Pulmicort Respules) 0.5 mg NEB BIDR LINDA Stop: 12/29/19 07:29 Last Admin: 11/29/19 07:38 Dose: 0.5 mg Documented by: Formoterol Fumarate (Perforomist) 20 mcg NEB BIDR LINDA Stop: 12/29/19 07:29 Last Admin: 11/29/19 07:38 Dose: 20 mcg Documented by: Guaifenesin (Mucinex) 600 mg PO Q12 [facility] Stop: 12/29/19 09:59 Last Admin: 11/29/19 10:17 Dose: 600 mg Documented by: Heparin Sodium (Beef Lung) (Heparin Sod 10 Unit/Ml Flush) 5 ml FLUSH PRN PRN PRN Reason: Flush Stop: 12/28/19 22:45 Heparin Sodium (Porcine) (Heparin Sodium (Porcine)) 5,000 units SQ Q12 LINDA Stop: 12/28/19 20:59 Last Admin: 11/29/19 07:18 Dose: 5,000 units Documented by: Vancomycin HCl 1,000 mg/ (Sodium Chloride) 270 mls @ 125 mls/hr IV Q12H LINDA Stop: 12/04/19 23:59 Last Infusion: 11/29/19 09:30 Dose: Infused Documented by: Methylprednisolone 40 mg/ (Syringe) 0.64 mls @ 1.5 mls/min IV BID LINDA Stop: 12/29/19 20:59 Levofloxacin/Dextrose (Levaquin/D5w) 750 mg in 150 mls @ 100 mls/hr IV Q24H LINDA Stop: 12/03/19 13:29 Last Admin: 11/29/19 10:21 Dose: 100 mls/hr Documented by: Ioversol (Optiray 320 125ml) 118 ml IV ONCE PRN PRN Reason: Interaction Checking Stop: 12/01/19 21:31 Last Admin: 11/27/19 21:33 Dose: 1 ml Documented by: Mirtazapine (Remeron) 15 mg PO HS LINDA Stop: 12/29/19 20:59 Miscellaneous ([facility] Protocol For Hyperglycemia) 1 ea N/A PRN PRN; Protocol PRN Reason: Hyperglycemia Protocol Stop: 11/29/19 22:32 Miscellaneous Information (Consult) 1 ea N/A UD PRN PRN Reason: Consult Stop: 12/28/19 01:23 Oxycodone HCl (Roxicodone Immediate Rel) 5 mg PO Q12H PRN PRN Reason: Pain Stop: 12/12/19 14:17 Last Admin: 11/29/19 05:00 Dose: 5 mg Documented by: Sertraline HCl (Zoloft) 200 mg PO HS LINDA Stop: 12/30/19 20:59
[2019-11-29] MEDS: MIRTAZAPINE TAB 15 MG TAB PO SCH (21:07)
[2019-11-29] MEDS: methylPREDNISolone 40 MG in SYRINGE 0 ML IV SCH (21:07)
[2019-11-29] MEDS: ALPRAZolam 0.5 MG TABLET PO PRN (21:07)
--- NOTE | 2019-11-29 23:40 | Electrocardiogram Report ---
Test Reason : Blood Pressure : / mmHG Vent. Rate : 067 BPM Atrial Rate : 067 BPM P-R Int : 130 ms QRS Dur : 070 ms QT Int : 374 ms P-R-T Axes : 069 063 055 degrees QTc Int : 395 ms Normal sinus rhythm Normal ECG When compared with ECG of 28-NOV-2019 06:29, Nonspecific T wave abnormality no longer evident in Inferior leads Nonspecific T wave abnormality no longer evident in Anterolateral leads Confirmed by Arnie Tinajero ([id number]) on 11/29/2019 11:39:47 PM Referred By: REFERRED SELF Confirmed By:Arnie Tinajero
[2019-11-30] MEDS: ALBUT/IPRATROP 3MG/0.5MG NEB 3 ML VIAL NEB SCH ×5 (00:35→18:30)
[2019-11-30 05:01] LABS: Basophils # (auto) 0.01 K/uL (0-0.2); Hematocrit (blood only) 34.3 % (42-52); Hemoglobin 11.4 g/dL (14.0-18.0); Immature Granulocytes # (auto) 0.11 K/uL (0.00-0.02); Immature Granulocytes % (auto) 0.5 %; Lymphocytes # (auto) 0.82 K/uL (1.2-3.4); Lymphocytes % (auto) 3.9 %; Mean Corpuscular Hgb Conc 33.2 g/dL (32-36); Mean Corpuscular Volume 93.2 fL (80-100); Mean Platelet Volume 11.6 fL (7.4-10.4); Monocytes # (auto) 1.56 K/uL (0.11-0.59); Monocytes % (auto) 7.4 %; Neutrophils # (auto) 18.55 K/uL (1.4-6.5); Neutrophils % (auto) 88.2 %; Platelet Count 143 K/uL (130-400); RDW Coefficient of Variation 13.1 % (11.5-14.5); RDW Standard Deviation 44.7 fL (36.4-46.3); Red Blood Count 3.68 M/uL (4.7-6.1); White Blood Count 21.05 K/uL (4.8-10.8)
[2019-11-30 05:17] LABS: Albumin Level 3.2 gm/dl (3.4-5.0); BUN Creatinine Ratio 23.9 (10-20); Calcium 8.6 mg/dl (8.5-10.1); Creatinine Clr Calc Pharmacy 78.5 ml/min; Est GFR (African American) 96.7; Est GFR (Non-African American) 83.5; Magnesium 2.3 mg/dl (1.8-2.4); Potassium 4.1 mmol/L (3.5-5.1)
[2019-11-30 05:27] LABS: Albumin Globulin Ratio 0.9 (0.9-2); Bilirubin,Total 0.6 mg/dl (0.2-1); Globulin 3.6 gm/dl (2.5-4.0); Phosphorus 2.2 mg/dl (2.5-4.9); Total Protein 6.8 gm/dl (6.4-8.2)
[2019-11-30] MEDS: BUDESONIDE 0.5 MG/2 ML VIAL (PULMICORT) NEB SCH ×2 (07:06→18:30)
[2019-11-30] MEDS: FORMOTEROL 20 MCG/2 ML VIAL NEB SCH ×2 (07:06→18:30)
[2019-11-30] MEDS ORDERED: VANCOMYCIN TROUGH ONE (07:30)
[2019-11-30] MEDS: VANCOMYCIN HCL 1,000 MG in SODIUM CHLORIDE 0.9% 250 ML IV SCH (08:45)
[2019-11-30] MEDS: ALPRAZolam 0.5 MG TABLET PO PRN ×2 (08:45→20:15)
[2019-11-30] MEDS: ACETAMINOPHEN 325 MG TAB PO PRN (08:45)
[2019-11-30] MEDS: HEPARIN SOD 5,000 UNIT/0.5 ML VIAL SQ SCH ×2 (08:45→20:13)
[2019-11-30] MEDS: methylPREDNISolone 40 MG in SYRINGE 0 ML IV SCH (08:45)
[2019-11-30] MEDS: guaiFENesin 600 MG TABCR PO SCH ×2 (08:45→20:13)
[2019-11-30] MEDS: OXYCODONE HCL IR 5 MG TAB (IMMEDIATE RELEASE) PO PRN ×2 (08:46→20:14)
--- NOTE | 2019-11-30 09:07 | Electrocardiogram Report ---
Test Reason : Blood Pressure : / mmHG Vent. Rate : 076 BPM Atrial Rate : 076 BPM P-R Int : 110 ms QRS Dur : 072 ms QT Int : 364 ms P-R-T Axes : 067 073 094 degrees QTc Int : 409 ms Sinus rhythm with short GA with Premature supraventricular complexes Otherwise normal ECG When compared with ECG of 29-NOV-2019 07:01, Premature supraventricular complexes are now Present Confirmed by Jey Del Toro ([id number]) on 11/30/2019 9:07:35 AM Referred By: REFERRED SELF Confirmed By:Jey Del Toro
[2019-11-30] MEDS: LEVOFLOXACIN/D5W 750 MG/150 ML BAG IV SCH (11:29)
--- NOTE | 2019-11-30 11:44 | Hospitalist Progress Note ---
Date of Service November 30, 2019 Assessment & Plan (1) Unresponsiveness: Was found to be unresponsive at home by the Has a pulse on arrival of EMS and the patient was intubated in field Causes could be multifactorial including use of narcotics/polypharmacy/respiratory failure/infection Urine tox screen showed positivity for ecstasy, benzodiazepines and methadone Has been extubated this morning 11/28/2019 Better but remains mildly shortness of breath at rest He admits to have taken 2 of oxycodone and 2 of Xanax on the day of admission, likely complicating his current situation Remains pleasantly confused otherwise alert awake and oriented (2) Shock: Noted to have very low blood pressure on arrival Required vasopressors to maintain blood pressure Will wean off vasopressors this morning Blood pressure remains around 120s Blood pressure remains on the higher side Will restart his home medication Possible sepsis is not ruled out yet No evidence of pneumonia and/or urinary tract infection as of yet Has been getting intravenous antibiotics with cefepime, doxycycline and vancomycin Awaiting blood cultures and urine cultures and sputum culture We will continue current antibiotics for now Repeat chest x-ray did not show any consolidation We will continue current antibiotics Blood cultures have been negative Sputum culture showed normal niya very few gram-positive cocci Will continue with intravenous Levaquin for now and discontinue vancomycin, discussed with supervisor production managing (3) Acute respiratory failure with hypoxia: Has history of COPD without any exacerbation Came in with acute respiratory failure Required intubation in field Appreciate supervisor production managing input and recommendation Has been extubated this morning Has been getting intravenous methylprednisone Using oxygen mask at 5 L maintain saturation Has chronic respiratory failure and uses oxygen at home Hypophosphatemia We will replace and monitor Normalized (4) COPD (chronic obstructive pulmonary disease): As above Has been getting intravenous methylprednisone Continue nebs treatment as well Has COPD exacerbation ,infective Nebulized bronchodilator, intravenous Solu-Medrol and IV Levaquin (5) Bipolar disorder: Antipsychotic medications are on hold now Please start dose as soon as possible Degenerative disc disease Has been taking hydrocodone occasionally for that We will transfer the patient to medical telemetry unit for continuation of care Admission and Anticipated Discharge Date Admission Date: November 27, 2019 Subjective The patient was seen and examined in ICU He has been extubated this morning and remains very drowsy 11/29/2019 The patient was seen and examined in ICU He is out of bed on a chair with moderate shortness of breath Pleasantly confused and sometimes getting around in the room Denies any other significant symptoms 11/30/2019 The patient was seen and examined in ICU He remains short of breath with wheezing and pleasantly confused Very shaky with movements Denies any significant pain Review of Systems Review of Systems: All systems reviewed and are unremarkable except as noted below Respiratory: + cough and + dyspnea Neurologic: Pleasantly confused Physical Exam Physical Exam: Sitting on a chair with moderate shortness of breath Constitutional: well developed, well nourished, + acute distress and + ill appearing Eyes: PERRL, conjunctivae normal, anicteric sclerae ENMT: external ear and nose normal, oropharynx normal Neck: trachea midline, no thyromegaly Respiratory: + respiratory distress (Minimal shortness of breath at rest on oxygen mask) Auscultation: + diminished lung sounds, + crackles (Mild bibasilar crackles) and + wheezes (Wheezing is worse today bilateral) Cardiovascular: Rate/Rhythm: regular rate and regular rhythm Heart Sounds: no murmur Gastrointestinal (Abdomen): Inspection/Auscultation: abdomen normal to inspection and normal bowel sounds Percussion/Palpation: abdomen soft; abdomen nontender Musculoskeletal: No acute arthritis involving any joints Neurologic: moves all extremities Lymphatic: no cervical or axillary lymphadenopathy Results & Data Results & Data ([facility]) Vital Signs (Past 12 Hours) Vital Signs Temp Pulse Pulse Resp BP Pulse Ox 11/30/19 10:45 64 17 157/97 H 100 11/30/19 09:55 64 15 142/99 H 11/30/19 08:11 64 15 130/84 91 11/30/19 08:00 36.8 C 65 20 11/30/19 07:11 72 23 167/99 H 92 11/30/19 07:06 70 22 96 11/30/19 03:15 61 40 H 96 11/30/19 01:00 75 24 11/30/19 00:37 63 63 34 H 98 11/30/19 00:10 65 13 128/78 11/30/19 00:00 66 11 L 11/29/19 23:50 66 33 H 99 Laboratory Results Short CBC 11/30/19 Range/Units 04:42 WBC 21.05 H (4.8-10.8) K/uL Hgb 11.4 L (14.0-18.0) g/dL Hct 34.3 L (42-52) % Plt Count 143 (130-400) K/uL BMP 11/30/19 04:42 Sodium 140 Potassium 4.1 Chloride 104 Carbon Dioxide 31 BUN 23 H Creatinine 0.98 Glucose 119 H Calcium 8.6 Liver Function 11/30/19 Range/Units 04:42 Total Bilirubin 0.6 (0.2-1) mg/dl AST 57 H (15-37) U/L ALT 34 (12-78) U/L Alkaline Phosphatase 69 (45-117) U/L Albumin 3.2 L (3.4-5.0) gm/dl Medications Administered Current Inpatient Medications Acetaminophen (Tylenol) 650 mg PO Q4H PRN PRN Reason: Pain or Fever Stop: 12/28/19 13:17 Last Admin: 11/30/19 08:45 Dose: 650 mg Documented by: Albuterol (Ventolin Hfa) 2 puffs INH QID PRN PRN Reason: shortness of breath or wheezing Stop: 12/27/19 22:32 Albuterol (Duoneb) 3 ml NEB Q6R LINDA Stop: 12/29/19 09:44 Last Admin: 11/30/19 07:06 Dose: Not Given Documented by: Alprazolam (Xanax) 0.5 mg PO Q8H PRN PRN Reason: Anxiety Stop: 12/29/19 04:47 Last Admin: 11/30/19 08:45 Dose: 0.5 mg Documented by: Budesonide (Pulmicort Respules) 0.5 mg NEB BIDR LINDA Stop: 12/29/19 07:29 Last Admin: 11/30/19 07:06 Dose: 0.5 mg Documented by: Formoterol Fumarate (Perforomist) 20 mcg NEB BIDR LINDA Stop: 12/29/19 07:29 Last Admin: 11/30/19 07:06 Dose: 20 mcg Documented by: Guaifenesin (Mucinex) 600 mg PO Q12 LINDA Stop: 12/29/19 09:59 Last Admin: 11/30/19 08:45 Dose: 600 mg Documented by: Heparin Sodium (Beef Lung) (Heparin Sod 10 Unit/Ml Flush) 5 ml FLUSH PRN PRN PRN Reason: Flush Stop: 12/28/19 22:45 Heparin Sodium (Porcine) (Heparin Sodium (Porcine)) 5,000 units SQ Q12 LINDA Stop: 12/28/19 20:59 Last Admin: 11/30/19 08:45 Dose: 5,000 units Documented by: Vancomycin HCl 1,000 mg/ (Sodium Chloride) 270 mls @ 125 mls/hr IV Q12H LINDA Stop: 12/04/19 23:59 Last Infusion: 11/30/19 10:57 Dose: Infused Documented by: Methylprednisolone 40 mg/ (Syringe) 0.64 mls @ 1.5 mls/min IV BID LINDA Stop: 12/29/19 20:59 Last Admin: 11/30/19 08:45 Dose: 1.5 mls/min Documented by: Levofloxacin/Dextrose (Levaquin/D5w) 750 mg in 150 mls @ 100 mls/hr IV Q24H [facility] Stop: 12/03/19 13:29 Last Admin: 11/30/19 11:29 Dose: 100 mls/hr Documented by: Ioversol (Optiray 320 125ml) 118 ml IV ONCE PRN PRN Reason: Interaction Checking Stop: 12/01/19 21:31 Last Admin: 11/27/19 21:33 Dose: 1 ml Documented by: Mirtazapine (Remeron) 15 mg PO HS [facility] Stop: 12/29/19 20:59 Last Admin: 11/29/19 21:07 Dose: 15 mg Documented by: Miscellaneous Information (Consult) 1 ea N/A UD PRN PRN Reason: Consult Stop: 12/28/19 01:23 Oxycodone HCl (Roxicodone Immediate Rel) 5 mg PO Q12H PRN PRN Reason: Pain Stop: 12/12/19 14:17 Last Admin: 11/30/19 08:46 Dose: 5 mg Documented by: Sertraline HCl (Zoloft) 200 mg PO HS [facility] Stop: 12/30/19 20:59 (1) COPD (chronic obstructive pulmonary disease) COPD type: unspecified COPD Qualified Code(s): J44.9 - Chronic obstructive pulmonary disease, unspecified
--- NOTE | 2019-11-30 14:49 | Pulmonology Progress Note ---
Date of Service November 30, 2019 Assessment & Plan (1) Acute and chronic respiratory failure: 59-year-old male with a longstanding history of tobacco abuse, emphysema and anxiety who presented to hospital with respiratory arrest and a COPD exacerbation. Continue steroids for COPD exacerbation. Can switch to p.o. prednisone tomorrow. I would recommend a 10-day course of steroids. Continue 5 days of antibiotics. Levaquin is reasonable. MRSA screen was positive, however, I do n ot think that he has MRSA pneumonia. Procalcitonin was elevated to 0.65 yesterday. Sputum culture negative. Recommend repeating procalcitonin tomorrow to see that there is a downward trend. He will need outpatient PFTs, 6-minute walk distance and follow-up. He says he follows up with network project manager in [facility]. He has been prescribed oxygen and wears 2 L at home. I also discussed smoking cessation. Recommend discharging on home BiPAP/trilogy. This can be arranged Monday or Monday. Will need case management involvement. Continue DuoNeb as well in the hospital. He continues to be very bronchospastic. Will need to be very careful with benzodiazepines and opiates given his propensity to go into hypercapnic respiratory failure. He is also on Zanaflex which can cause significant sedation. Would recommend discharging him on a Laba/lama combination inhaler such as Stiolto. He will also need a short acting inhaler upon discharge. Would also consider sending him home with Narcan given his propensity to go into hypercapnic respiratory failure related to opiates and benzos. Recommend transfer to floor. Due to chronic hypercapnic respiratory failure consequent to COPD, the patient now requires a noninvasive home ventilator. Bilevel therapy with and without a rate would be ineffective as patient requires a volume targeted mode. Ventilation is required to decrease work of breathing and improve pulmonary status. Interruption of ventilator support would lead to decline of health status. NIMV settings should be AVAPS-AE; Breath rate: auto; Inspiratory time: auto; Sigh: off; Tidal Volume: [350-450], PS min: [4-10 PS max: 12-20]; EPAP min: [6- 10]; EPAP max: [10-16]; AVAPS rate: [14 during sleep and as needed] Pulmonary will continue to follow. Thank you. (2) Respiratory arrest: (3) Tobacco use disorder: (4) Acute respiratory failure with hypoxia: (5) COPD (chronic obstructive pulmonary disease): COPD type: unspecified COPD Qualified Code(s): J44.9 - Chronic obstructive pulmonary disease, unspecified Admission and Anticipated Discharge Date Admission Date: November 27, 2019 Subjective Patient doing much better today. He continues to have some soreness in his chest from some chest compressions on arrival. Continues to have a cough. He has shortness of breath with minimal exertion. Denies any hemoptysis. No significant sputum production. Review of Systems Review of Systems: All systems reviewed & are unremarkable except as noted in HPI & below Physical Exam Constitutional: Thin and frail appearing. Tachypneic. Eyes: PERRL, conjunctivae normal, anicteric sclerae ENMT: external ear and nose normal, oropharynx normal Neck: normal visual inspection Respiratory: Diffuse wheezes bilaterally. Tripoding at times. Cardiovascular: RRR, no murmur, no edema Gastrointestinal (Abdomen): normal bowel sounds, soft, nontender, no hepatosplenomegaly Musculoskeletal: no cyanosis or clubbing, extremities motor strength 5/5 Skin: Patient has numerous tattoos throughout. Neurologic: PERRL, EOMI, accommodation nl, no face palsy, no dysarthria Psychiatric: A+Ox3, euthymic affect Results & Data Results & Data ([facility]) Vital Signs (Past 12 Hours) Vital Signs Temp Pulse Pulse Resp BP Pulse Ox 11/30/19 13:25 67 17 152/93 H 95 11/30/19 12:00 66 17 96 11/30/19 11:45 98.6 F 11/30/19 11:41 69 16 96 11/30/19 10:45 64 17 157/97 H 100 11/30/19 09:55 64 15 142/99 H 11/30/19 08:11 64 15 130/84 91 11/30/19 08:00 98.2 F 65 20 11/30/19 07:11 72 23 167/99 H 92 11/30/19 07:06 70 22 96 11/30/19 03:15 61 40 H 96 I personally reviewed labs, chest imaging and previous notes PG Care Time/CCT Total # of Minutes Spent Total Time Spent with Patient: Total time spent is greater than 50% in coordination of care (as documented) at patient's floor/unit and/or counseling patient: Coding Level of Care Code 24119 Subseq Hosp Care Lvl 3 Diagnoses Acute and chronic respiratory failure J96.20 Respiratory arrest R09.2 Tobacco use disorder F17.200 Acute respiratory failure with hypoxia J96.01 COPD (chronic obstructive pulmonary disease) J44.9 COPD type: unspecified COPD
[2019-11-30] MEDS: SERTRALINE HCL 100 MG TABLET PO SCH (20:13)
[2019-11-30] MEDS: MIRTAZAPINE TAB 15 MG TAB PO SCH (20:14)
[2019-12-01] MEDS: ALBUT/IPRATROP 3MG/0.5MG NEB 3 ML VIAL NEB SCH ×3 (01:05→07:03)
[2019-12-01] MEDS: FORMOTEROL 20 MCG/2 ML VIAL NEB SCH ×2 (07:02→19:18)
[2019-12-01] MEDS: BUDESONIDE 0.5 MG/2 ML VIAL (PULMICORT) NEB SCH ×2 (07:03→19:18)
[2019-12-01 07:13] LABS: Hematocrit (blood only) 36.7 % (42-52); Hemoglobin 11.8 g/dL (14.0-18.0); Immature Granulocytes # (auto) 0.06 K/uL (0.00-0.02); Immature Granulocytes % (auto) 0.4 %; Lymphocytes # (auto) 1.62 K/uL (1.2-3.4); Lymphocytes % (auto) 9.8 %; Mean Corpuscular Hemoglobin 30.3 pg (25-34); Mean Corpuscular Hgb Conc 32.2 g/dL (32-36); Mean Corpuscular Volume 94.1 fL (80-100); Mean Platelet Volume 11.6 fL (7.4-10.4); Monocytes % (auto) 9.7 %; Neutrophils # (auto) 13.17 K/uL (1.4-6.5); Neutrophils % (auto) 80.1 %; Platelet Count 143 K/uL (130-400); RDW Coefficient of Variation 13.2 % (11.5-14.5); RDW Standard Deviation 45.2 fL (36.4-46.3); White Blood Count 16.45 K/uL (4.8-10.8)
[2019-12-01 07:46] LABS: BUN Creatinine Ratio 20.9 (10-20); Calcium 9.3 mg/dl (8.5-10.1); Est GFR (Non-African American) 96.6; Potassium 3.6 mmol/L (3.5-5.1)
[2019-12-01] MEDS: HEPARIN SOD 5,000 UNIT/0.5 ML VIAL SQ SCH ×2 (08:44→20:19)
[2019-12-01] MEDS: predniSONE 20 MG TAB PO SCH (08:44)
[2019-12-01] MEDS: OXYCODONE HCL IR 5 MG TAB (IMMEDIATE RELEASE) PO PRN (08:48)
[2019-12-01] MEDS: ALPRAZolam 0.5 MG TABLET PO PRN (08:48)
[2019-12-01] MEDS: guaiFENesin 600 MG TABCR PO SCH ×2 (09:15→20:17)
[2019-12-01] MEDS ORDERED: ALBUT/IPRATROP 3MG/0.5MG NEB 3 ML VIAL NEB PRN (10:50)
[2019-12-01] MEDS: LEVOFLOXACIN/D5W 750 MG/150 ML BAG IV SCH (11:28)
--- NOTE | 2019-12-01 12:44 | Hospitalist Progress Note ---
Date of Service December 01, 2019 Assessment & Plan (1) Unresponsiveness: Was found to be unresponsive at home by the Has a pulse on arrival of EMS and the patient was intubated in field Causes could be multifactorial including use of narcotics/polypharmacy/respiratory failure/infection Urine tox screen showed positivity for ecstasy, benzodiazepines and methadone Has been extubated this morning 11/28/2019 Better but remains mildly shortness of breath at rest He admits to have taken 2 of oxycodone and 2 of Xanax on the day of admission, likely complicating his current situation Remains pleasantly confused otherwise alert awake and oriented Back to his baseline without any confusion and or weakness We will get PT and OT evaluation and possible discharge home tomorrow (2) Shock: Noted to have very low blood pressure on arrival Required vasopressors to maintain blood pressure Will wean off vasopressors this morning Blood pressure remains around 120s Blood pressure remains on the higher side Will restart his home medication Blood pressure is running the higher side of normal Possible sepsis is not ruled out yet No evidence of pneumonia and/or urinary tract infection as of yet Has been getting intravenous antibiotics with cefepime, doxycycline and vancomycin Awaiting blood cultures and urine cultures and sputum culture We will continue current antibiotics for now Repeat chest x-ray did not show any consolidation We will continue current antibiotics Blood cultures have been negative Sputum culture showed normal niya very few gram-positive cocci Will continue with intravenous Levaquin for now and discontinue vancomycin, disc ussed with industrial safety engineer Will give oral Levaquin on discharge (3) Acute respiratory failure with hypoxia: Has history of COPD without any exacerbation Came in with acute respiratory failure Required intubation in field Appreciate industrial safety engineer input and recommendation Has been extubated this morning Has been getting intravenous methylprednisone Using oxygen mask at 5 L maintain saturation Has chronic respiratory failure and uses oxygen at home Continue home oxygen at discharge Hypophosphatemia We will replace and monitor Normalized (4) COPD (chronic obstructive pulmonary disease): As above Has been getting intravenous methylprednisone Continue nebs treatment as well Has COPD exacerbation ,infective Nebulized bronchodilator, intravenous Solu-Medrol and IV Levaquin Bronchodilator has been changed to as needed We will change her Solu-Medrol to oral prednisone from tomorrow (5) Bipolar disorder: Antipsychotic medications are on hold now Please start dose as soon as possible Degenerative disc disease Has been taking hydrocodone occasionally for that We will transfer the patient to medical telemetry unit for continuation of care Admission and Anticipated Discharge Date Admission Date: November 27, 2019 Subjective The patient was seen and examined in ICU He has been extubated this morning and remains very drowsy 11/29/2019 The patient was seen and examined in ICU He is out of bed on a chair with moderate shortness of breath Pleasantly confused and sometimes getting around in the room Denies any other significant symptoms 11/30/2019 The patient was seen and examined in ICU He remains short of breath with wheezing and pleasantly confused Very shaky with movements Denies any significant pain 12/01/2019 The patient was seen and examined in telemetry unit He has been feeling a lot better without any wheezing and/or shortness of breath at rest Denies any other symptoms except some pain in the lower chest wall secondary to coughing Review of Systems Review of Systems: All systems reviewed and are unremarkable except as noted below Respiratory: + cough and + dyspnea Neurologic: Pleasantly confused Physical Exam Physical Exam: Sitting on a chair with moderate shortness of breath Constitutional: well developed, well nourished, + acute distress and + ill appearing Eyes: PERRL, conjunctivae normal, anicteric sclerae ENMT: external ear and nose normal, oropharynx normal Neck: trachea midline, no thyromegaly Respiratory: no respiratory distress (Minimal shortness of breath at rest on oxygen mask) Auscultation: + diminished lung sounds; no crackles (Mild bibasilar crackles) and no wheezes (Wheezing is worse today bilateral) Cardiovascular: Rate/Rhythm: regular rate and regular rhythm Heart Sounds: no murmur Gastrointestinal (Abdomen): Inspection/Auscultation: abdomen normal to inspection and normal bowel sounds Percussion/Palpation: abdomen soft; abdomen nontender Neurologic: moves all extremities Lymphatic: no cervical or axillary lymphadenopathy Results & Data Results & Data ([facility]) Vital Signs (Past 12 Hours) Vital Signs Temp Pulse Pulse Resp BP BP Pulse Ox 12/01/19 11:09 36.8 C 69 19 167/86 H 93 12/01/19 08:01 36.9 C 78 20 166/93 H 93 12/01/19 07:13 65 12/01/19 07:03 66 16 97 12/01/19 03:58 36.9 C 72 18 148/74 H 98 12/01/19 01:05 66 18 98 Laboratory Results Short CBC 12/01/19 Range/Units 06:52 WBC 16.45 H (4.8-10.8) K/uL Hgb 11.8 L (14.0-18.0) g/dL Hct 36.7 L (42-52) % Plt Count 143 (130-400) K/uL BMP 12/01/19 06:52 Sodium 139 Potassium 3.6 Chloride 99 Carbon Dioxide 38 H BUN 17 Creatinine 0.81 Glucose 81 Calcium 9.3 Medications Administered Current Inpatient Medications Acetaminophen (Tylenol) 650 mg PO Q4H PRN PRN Reason: Pain or Fever Stop: 12/28/19 13:17 Last Admin: 11/30/19 08:45 Dose: 650 mg Documented by: Albuterol (Ventolin Hfa) 2 puffs INH QID PRN PRN Reason: shortness of breath or wheezing Stop: 12/27/19 22:32 Albuterol (Duoneb) 3 ml NEB Q6R PRN PRN Reason: Wheezing Stop: 12/08/19 10:49 Alprazolam (Xanax) 0.5 mg PO Q8H PRN PRN Reason: Anxiety Stop: 12/29/19 04:47 Last Admin: 12/01/19 08:48 Dose: 0.5 mg Documented by: Budesonide (Pulmicort Respules) 0.5 mg NEB BIDR LINDA Stop: 12/29/19 07:29 Last Admin: 12/01/19 07:03 Dose: 0.5 mg Documented by: Formoterol Fumarate (Perforomist) 20 mcg NEB BIDR LINDA Stop: 12/29/19 07:29 Last Admin: 12/01/19 07:02 Dose: 20 mcg Documented by: Guaifenesin (Mucinex) 600 mg PO Q12 LINDA Stop: 12/29/19 09:59 Last Admin: 12/01/19 09:15 Dose: 600 mg Documented by: Heparin Sodium (Beef Lung) (Heparin Sod 10 Unit/Ml Flush) 5 ml FLUSH PRN PRN PRN Reason: Flush Stop: 12/28/19 22:45 Heparin Sodium (Porcine) (Heparin Sodium (Porcine)) 5,000 units SQ Q12 LINDA Stop: 12/28/19 20:59 Last Admin: 12/01/19 08:44 Dose: 5,000 units Documented by: Levofloxacin/Dextrose (Levaquin/D5w) 750 mg in 150 mls @ 100 mls/hr IV Q24H [facility]DA Stop: 12/03/19 13:29 Last Admin: 12/01/19 11:28 Dose: 100 mls/hr Documented by: Ioversol (Optiray 320 125ml) 118 ml IV ONCE PRN PRN Reason: Interaction Checking Stop: 12/01/19 21:31 Last Admin: 11/27/19 21:33 Dose: 1 ml Documented by: Mirtazapine (Remeron) 15 mg PO HS LINDA Stop: 12/29/19 20:59 Last Admin: 11/30/19 20:14 Dose: 15 mg Documented by: Oxycodone HCl (Roxicodone Immediate Rel) 5 mg PO Q12H PRN PRN Reason: Pain Stop: 12/12/19 14:17 Last Admin: 12/01/19 08:48 Dose: 5 mg Documented by: Prednisone (Prednisone) 40 mg PO DAILY LINDA Stop: 12/31/19 08:59 Last Admin: 12/01/19 08:44 Dose: 40 mg Documented by: Sertraline HCl (Zoloft) 200 mg PO HS LINDA Stop: 12/30/19 20:59 Last Admin: 11/30/19 20:13 Dose: 200 mg Documented by: (1) COPD (chronic obstructive pulmonary disease) COPD type: unspecified COPD Qualified Code(s): J44.9 - Chronic obstructive pulmonary disease, unspecified
--- NOTE | 2019-12-01 13:12 | Pulmonology Progress Note ---
Date of Service December 01, 2019 Assessment & Plan (1) Acute and chronic respiratory failure: 59-year-old male with a longstanding history of tobacco abuse, emphysema and anxiety who presented to hospital with respiratory arrest and a COPD exacerbation. Continue steroids for COPD exacerbation. Can switch to p.o. prednisone tomorrow. I would recommend a 10-day course of steroids. Continue 5 days of antibiotics. Levaquin is reasonable. MRSA screen was positive, however, I do n ot think that he has MRSA pneumonia. Procalcitonin was elevated to 0.65 11/28 and down to 0.18 11/30.. Sputum culture negative. He will need outpatient PFTs, 6-minute walk distance and follow-up. He says he follows up with seo engineer in [facility]. He has been prescribed oxygen and wears 2 L at home. I also discussed smoking cessation. Recommend discharging on home BiPAP/trilogy. This can be arranged Monday or Monday. Will need case management involvement. Continue DuoNeb as well in the hospital. He continues to be very bronchospastic. Will need to be very careful with benzodiazepines and opiates given his propensity to go into hypercapnic respiratory failure. He is also on Zanaflex which can cause significant sedation. Would recommend discharging him on a Laba/lama combination inhaler such as Stiolto. He will also need a short acting inhaler upon discharge. Would also consider sending him home with Narcan given his propensity to go into hypercapnic respiratory failure related to opiates and benzos. Recommend transfer to floor. Due to chronic hypercapnic respiratory failure consequent to COPD, the patient now requires a noninvasive home ventilator. Bilevel therapy with and without a rate would be ineffective as patient requires a volume targeted mode. Ventilation is required to decrease work of breathing and improve pulmonary status. Interruption of ventilator support would lead to decline of health status. NIMV settings should be AVAPS-AE; Breath rate: auto; Inspiratory time: auto; Sigh: off; Tidal Volume: 350-450, PS min: 4-10 PS max: 12-20; EPAP min: 6-10; EPAP max: 10-16; AVAPS rate: 14 during sleep and as needed Pulmonary will continue to follow. Thank you. (2) Respiratory arrest: (3) Tobacco use disorder: (4) Acute respiratory failure with hypoxia: (5) COPD (chronic obstructive pulmonary disease): COPD type: unspecified COPD Qualified Code(s): J44.9 - Chronic obstructive pulmonary disease, unspecified Admission and Anticipated Discharge Date Admission Date: November 27, 2019 Subjective Patient feels a bit better today. Still having some wheezing episodes. Continues to cough with a nonproductive cough. No chest pain. No fevers or chills. Physical Exam Constitutional: Thin and frail appearing. Tachypneic. Eyes: PERRL, conjunctivae normal, anicteric sclerae ENMT: external ear and nose normal, oropharynx normal Neck: normal visual inspection Respiratory: Diffuse wheezes bilaterally. Tripoding at times. Cardiovascular: RRR, no murmur, no edema Gastrointestinal (Abdomen): normal bowel sounds, soft, nontender, no hepatosplenomegaly Musculoskeletal: no cyanosis or clubbing, extremities motor strength 5/5 Skin: Patient has numerous tattoos throughout. Neurologic: PERRL, EOMI, accommodation nl, no face palsy, no dysarthria Psychiatric: A+Ox3, euthymic affect Results & Data Results & Data ([facility]) Vital Signs (Past 12 Hours) Vital Signs Temp Pulse Pulse Resp BP BP Pulse Ox 12/01/19 11:09 98.2 F 69 19 167/86 H 93 12/01/19 08:01 98.4 F 78 20 166/93 H 93 12/01/19 07:13 65 12/01/19 07:03 66 16 97 12/01/19 03:58 98.4 F 72 18 148/74 H 98 PG Care Time/CCT Total # of Minutes Spent Total Time Spent with Patient: Total time spent is greater than 50% in coordination of care (as documented) at patient's floor/unit and/or counseling patient: Coding Level of Care Code 59053 Subseq Hosp Care Lvl 2 Diagnoses Acute and chronic respiratory failure J96.20 Respiratory arrest R09.2 Tobacco use disorder F17.200 Acute respiratory failure with hypoxia J96.01 COPD (chronic obstructive pulmonary disease) J44.9 COPD type: unspecified COPD
[2019-12-01] MEDS: MIRTAZAPINE TAB 15 MG TAB PO SCH (20:16)
[2019-12-01] MEDS: SERTRALINE HCL 100 MG TABLET PO SCH (20:17)
[2019-12-02] MEDS: OXYCODONE HCL IR 5 MG TAB (IMMEDIATE RELEASE) PO PRN (04:14)
[2019-12-02] MEDS: ALPRAZolam 0.5 MG TABLET PO PRN (06:08)
[2019-12-02] MEDS: BUDESONIDE 0.5 MG/2 ML VIAL (PULMICORT) NEB SCH (07:11)
[2019-12-02] MEDS: FORMOTEROL 20 MCG/2 ML VIAL NEB SCH (07:11)
[2019-12-02] MEDS: HEPARIN SOD 5,000 UNIT/0.5 ML VIAL SQ SCH (08:23)
[2019-12-02] MEDS: guaiFENesin 600 MG TABCR PO SCH (08:23)
[2019-12-02] MEDS: predniSONE 20 MG TAB PO SCH (08:23)
[2019-12-02] MEDS: LEVOFLOXACIN/D5W 750 MG/150 ML BAG IV SCH (11:12)
--- NOTE | 2019-12-02 11:13 | Pulmonology Progress Note ---
Date of Service December 02, 2019 Assessment & Plan (1) Tobacco use disorder: (2) COPD (chronic obstructive pulmonary disease): 59-year-old male with history of tobacco abuse, active smoker, on methadone who presented to the hospital with respiratory arrest and COPD exacerbation --Chronic hypoxic hypercapnic respiratory failure Status post extubation Continue with inhaled bronchodilators Recommend O2 supplementation to keep oxygen saturation between 88 to 92% BiPAP nightly and PRN shortness of breath Patient is being worked up to be discharged on BiPAP/trilogy. --COPD with severe emphysema Patient is an active smoker Advised to quit, patient states that he is not going to smoke anymore since this episode leading to admission. On discharge recommend Anoro on a daily basis along with as needed albuterol Sputum culture growing Aspergillus fumigatus which is likely colonizer, no need to treat. Plan: Recommend starting tapering off prednisone tomorrow to 20 mg for 3 more days. Continue with inhaled therapy Continue the course of antibiotics for total of 7 days Consider sending the patient on Narcan as he is on chronic opioids as well as benzodiazepines. Patient is on multiple QT prolonging medications. Latest QTC from 11/30 412 COPD type: unspecified COPD Qualified Code(s): J44.9 - Chronic obstructive pulmonary disease, unspecified (3) Chronic respiratory failure with hypoxia: Admission and Anticipated Discharge Date Admission Date: November 27, 2019 Subjective Patient seen and examined at bedside. No acute distress, no adverse events overnight. Complaints of mild chest pain which is getting better this is likely from the CPR that he received, shortness of breath is improved. No headache, no dizziness. Able to walk without getting short of breath. Review of Systems Review of Systems: All systems reviewed & are unremarkable except as noted in HPI & below Physical Exam Physical Exam: Constitutional: No acute distress HEENT: EOMI, PERRLA Respiratory system: Decreased air entry bilaterally, no wheeze, no rhonchi, no crackles CVS: S1-S2 positive, no murmurs or gallops Abdomen: Soft, nontender, nondistended, positive bowel sounds x4 Extremities: +2 pulses bilaterally radialis/ dorsalis pedis, no cyanosis, no edema, tattoos all over the body Neuro: Awake alert oriented x3 Psych: Normal mood and affect G/U: No Wagoner Skin: no rashes, warm and dry Lymphatic: no cervical or axillary lymphadenopathy Results & Data Results & Data ([facility]) Vital Signs (Past 12 Hours) Vital Signs Temp Pulse Pulse Resp BP Pulse Ox 12/02/19 08:02 37.2 C 76 19 151/94 H 95 12/02/19 07:54 74 12/02/19 07:11 72 18 96 12/02/19 04:02 36.9 C 76 19 167/91 H 96 12/02/19 01:59 74 12/02/19 00:34 36.9 C 78 19 145/81 H 91 12/01/19 23:59 74 12/01/19 06:52 12/01/19 06:52 PG Care Time/CCT Total # of Minutes Spent Total Time Spent with Patient: Total time spent is greater than 50% in coordination of care (as documented) at patient's floor/unit and/or counseling patient: Coding Level of Care Code 73610 Subseq Hosp Care Lvl 3 Diagnoses Tobacco use disorder F17.200 COPD (chronic obstructive pulmonary disease) J44.9 COPD type: unspecified COPD Chronic respiratory failure with hypoxia J96.11
--- NOTE | 2019-12-02 11:35 | Hospitalist Progress Note ---
Date of Service December 02, 2019 Assessment & Plan (1) Unresponsiveness: Was found to be unresponsive at home by the Has a pulse on arrival of EMS and the patient was intubated in field Causes could be multifactorial including use of narcotics/polypharmacy/respiratory failure/infection Urine tox screen showed positivity for ecstasy, benzodiazepines and methadone Has been extubated this morning 11/28/2019 Better but remains mildly shortness of breath at rest He admits to have taken 2 of oxycodone and 2 of Xanax on the day of admission, likely complicating his current situation Remains pleasantly confused otherwise alert awake and oriented Back to his baseline without any confusion and or weakness We will get PT and OT evaluation and possible discharge home tomorrow Will be discharging home this afternoon (2) Shock: Noted to have very low blood pressure on arrival Required vasopressors to maintain blood pressure Will wean off vasopressors this morning Blood pressure remains around 120s Blood pressure remains on the higher side Will restart his home medication Blood pressure is running the higher side of normal Possible sepsis is not ruled out yet No evidence of pneumonia and/or urinary tract infection as of yet Has been getting intravenous antibiotics with cefepime, doxycycline and vancomycin Awaiting blood cultures and urine cultures and sputum culture We will continue current antibiotics for now Repeat chest x-ray did not show any consolidation We will continue current antibiotics Blood cultures have been negative Sputum culture showed normal niya very few gram-positive cocci Will continue with intravenous Levaquin for now and discontinue vancomycin, discussed with wet suit gluer Will give oral Levaquin on discharge to complete a course of 7 days (3) Acute respiratory failure with hypoxia: Has history of COPD without any exacerbation Came in with acute respiratory failure Required intubation in field Appreciate wet suit gluer input and recommendation Has been extubated this morning Has been getting intravenous methylprednisone Using oxygen mask at 5 L maintain saturation Has chronic respiratory failure and uses oxygen at home Continue home oxygen at discharge Hypophosphatemia We will replace and monitor Normalized (4) COPD (chronic obstructive pulmonary disease): As above Has been getting intravenous methylprednisone Continue nebs treatment as well Has COPD exacerbation ,infective Nebulized bronchodilator, intravenous Solu-Medrol and IV Levaquin Bronchodilator has been changed to as needed We will change her Solu-Medrol to oral prednisone from tomorrow Prednisone should be given for 5 days in total (5) Bipolar disorder: Antipsychotic medications are on hold now Please start dose as soon as possible Degenerative disc disease Has been taking hydrocodone occasionally for that We will transfer the patient to medical telemetry unit for continuation of care He will be discharged home this afternoon Admission and Anticipated Discharge Date Admission Date: November 27, 2019 Subjective The patient was seen and examined in ICU He has been extubated this morning and remains very drowsy 11/29/2019 The patient was seen and examined in ICU He is out of bed on a chair with moderate shortness of breath Pleasantly confused and sometimes getting around in the room Denies any other significant symptoms 11/30/2019 The patient was seen and examined in ICU He remains short of breath with wheezing and pleasantly confused Very shaky with movements Denies any significant pain 12/01/2019 The patient was seen and examined in telemetry unit He has been feeling a lot better without any wheezing and/or shortness of breath at rest Denies any other symptoms except some pain in the lower chest wall secondary to coughing 12/02/2019 The patient was seen and examined in telemetry unit He has been feeling a lot better and denies any symptoms at rest Denies any fever or chills, chest pain and/or palpitation, any abdominal pain nausea and or vomiting Has been ambulating in the hallway and in the room without any difficulties Review of Systems Review of Systems: All systems reviewed and are unremarkable except as noted below Respiratory: + dyspnea on exertion; no cough and no dyspnea Cardiovascular: no chest pain Neurologic: Pleasantly confused Physical Exam Physical Exam: Sitting on a chair with moderate shortness of breath Constitutional: well developed, well nourished, + acute distress and + ill appearing Eyes: PERRL, conjunctivae normal, anicteric sclerae ENMT: external ear and nose normal, oropharynx normal Neck: trachea midline, no thyromegaly Respiratory: no respiratory distress (Minimal shortness of breath at rest on oxygen mask) Auscultation: + diminished lung sounds; no crackles (Mild bibasilar crackles) and no wheezes (Wheezing is worse today bilateral) Cardiovascular: Rate/Rhythm: regular rate and regular rhythm Heart Sounds: no murmur Gastrointestinal (Abdomen): Inspection/Auscultation: abdomen normal to inspection and normal bowel sounds Percussion/Palpation: abdomen soft; abdomen nontender Musculoskeletal: No acute arthritis involving any joints Neurologic: moves all extremities; no focal motor deficits Alert, awake and oriented x3 Lymphatic: no cervical or axillary lymphadenopathy Results & Data Results & Data ([facility]) Vital Signs (Past 12 Hours) Vital Signs Temp Pulse Pulse Resp BP Pulse Ox 12/02/19 08:02 37.2 C 76 19 151/94 H 95 12/02/19 07:54 74 12/02/19 07:11 72 18 96 12/02/19 04:02 36.9 C 76 19 167/91 H 96 12/02/19 01:59 74 12/02/19 00:34 36.9 C 78 19 145/81 H 91 12/01/19 23:59 74 Medications Administered Current Inpatient Medications Acetaminophen (Tylenol) 650 mg PO Q4H PRN PRN Reason: Pain or Fever Stop: 12/28/19 13:17 Last Admin: 11/30/19 08:45 Dose: 650 mg Documented by: Albuterol (Ventolin Hfa) 2 puffs INH QID PRN PRN Reason: shortness of breath or wheezing Stop: 12/27/19 22:32 Albuterol (Duoneb) 3 ml NEB Q6R PRN PRN Reason: Wheezing Stop: 12/08/19 10:49 Last Admin: 12/01/19 16:04 Dose: 3 ml Documented by: Alprazolam (Xanax) 0.5 mg PO Q8H PRN PRN Reason: Anxiety Stop: 12/29/19 04:47 Last Admin: 12/02/19 06:08 Dose: 0.5 mg Documented by: Budesonide (Pulmicort Respules) 0.5 mg NEB BIDR LINDA Stop: 12/29/19 07:29 Last Admin: 12/02/19 07:11 Dose: 0.5 mg Documented by: Formoterol Fumarate (Perforomist) 20 mcg NEB BIDR LINDA Stop: 12/29/19 07:29 Last Admin: 12/02/19 07:11 Dose: 20 mcg Documented by: Guaifenesin (Mucinex) 600 mg PO Q12 [facility] Stop: 12/29/19 09:59 Last Admin: 12/02/19 08:23 Dose: 600 mg Documented by: Heparin Sodium (Beef Lung) (Heparin Sod 10 Unit/Ml Flush) 5 ml FLUSH PRN PRN PRN Reason: Flush Stop: 12/28/19 22:45 Heparin Sodium (Porcine) (Heparin Sodium (Porcine)) 5,000 units SQ Q12 LINDA Stop: 12/28/19 20:59 Last Admin: 12/02/19 08:23 Dose: 5,000 units Documented by: Levofloxacin/Dextrose (Levaquin/D5w) 750 mg in 150 mls @ 100 mls/hr IV Q24H LINDA Stop: 12/03/19 13:29 Last Admin: 12/02/19 11:12 Dose: 100 mls/hr Documented by: Mirtazapine (Remeron) 15 mg PO HS LINDA Stop: 12/29/19 20:59 Last Admin: 12/01/19 20:16 Dose: 15 mg Documented by: Oxycodone HCl (Roxicodone Immediate Rel) 5 mg PO Q12H PRN PRN Reason: Pain Stop: 12/12/19 14:17 Last Admin: 12/02/19 04:14 Dose: 5 mg Documented by: Prednisone (Prednisone) 40 mg PO DAILY LINDA Stop: 12/31/19 08:59 Last Admin: 12/02/19 08:23 Dose: 40 mg Documented by: Sertraline HCl (Zoloft) 200 mg PO HS LINDA Stop: 12/30/19 20:59 Last Admin: 12/01/19 20:17 Dose: 200 mg Documented by: (1) COPD (chronic obstructive pulmonary disease) COPD type: unspecified COPD Qualified Code(s): J44.9 - Chronic obstructive pulmonary disease, unspecified
--- NOTE | 2019-12-02 12:40 | Electrocardiogram Report ---
Test Reason : Blood Pressure : / mmHG Vent. Rate : 127 BPM Atrial Rate : 104 BPM P-R Int : 000 ms QRS Dur : 072 ms QT Int : 350 ms P-R-T Axes : 000 068 062 degrees QTc Int : 508 ms Sinus rhythm with PACs transitioning to SVT Abnormal ECG When compared with ECG of 30-NOV-2019 06:41, SVT is now present Vent. rate has increased BY 51 BPM Confirmed by Stan Guzman ([id number]) on 12/02/2019 12:39:46 PM Referred By: REFERRED SELF Confirmed By:Den Guzman
--- NOTE | 2019-12-02 12:40 | Electrocardiogram Report ---
Test Reason : Blood Pressure : / mmHG Vent. Rate : 073 BPM Atrial Rate : 073 BPM P-R Int : 120 ms QRS Dur : 064 ms QT Int : 374 ms P-R-T Axes : 047 059 063 degrees QTc Int : 412 ms Normal sinus rhythm Normal ECG When compared with ECG of 01-DEC-2019 14:26, (unconfirmed) Sinus rhythm has replaced SVT Vent. rate has decreased BY 54 BPM Confirmed by Stan Guzman ([id number]) on 12/02/2019 12:39:58 PM Referred By: REFERRED SELF Confirmed By:Den Guzman
[2019-12-02 18:25] LABS: 7-Aminoclonaz, Confirm 138 ng/mL (<25); Hydro-Alp Ur, GC/MS 127 ng/mL (<25); Hydroxyethylflurazepam, Conf NEGATIVE ng/mL (<50); Hydroxymidazolam Ur, GC/MS NEGATIVE ng/mL (<50); Hydroxytriazolam NEGATIVE ng/mL (<50); Lorazepam, Ur GC/MS NEGATIVE ng/mL (<50); MDA negative; MDEA negative; MDMA (Ecstasy) Urine, Confirm negative; Methadone, Ur Metabolite 3770 ng/mL (<100); Nordiazepam, Confirm NEGATIVE ng/mL (<50); Oxazepam Ur, GC/MS NEGATIVE ng/mL (<50); Temazepam, Confirm NEGATIVE ng/mL (<50)
--- NOTE | 2019-12-10 09:44 | Discharge Summary ---
Date of Service December 10, 2019 Admission HPI Per Admitting Provider DICTATED BY: Alonzo Hawley MD DATE OF ADMISSION: 11/27/2019 CHIEF COMPLAINT: Unresponsiveness. HISTORY OF PRESENT ILLNESS: This is a 59-year-old male with past medical history significant for chronic respiratory failure on 2 L of oxygen, COPD, chronic rhinitis, degenerative disc disease, insomnia, ongoing tobacco abuse, bipolar disorder, presents with unresponsiveness. The patient lives with his . As per , he did not sleep last night and in the morning he was trying to sleep and when went to [facility] and came back at around 5:00pm, he was still sleeping, so she tried to go and check him and could not wake him up. At that time, they called 911 and was advised to do CPR and when the EMS came in, they could feel the pulse, intubated on the field for possible respiratory arrest and brought him here. Currently status post intubation and sedated. Pupils were pinpointed. As per the , there is no recent fever, chills. No cough, no nausea, no vomiting, no complaints of loss of smell or taste. No complaints of any chest pain. They recently went to [place], [place] in last week for his father's pacemaker, but there were no sick contacts and they came back last Monday. His appetite is okay. He was eating figs so that was causing some diarrhea. He was ambulating okay in house. CT head was okay. His white count is 16k. D-dimer was 3710. Venous blood gas shows respiratory acidosis. Creatinine is 1.59, baseline is 0.8. His glucose when he came in was 60 with dextrose currently is 291. Troponin 0.075. Procalcitonin was normal at 0.08. Initial lactate was 2.7, was repeated was 1.9. Urinalysis was okay. Urine drug screen was positive for methadone and benzos. The patient chronically takes hydrocodone and also alprazolam at home. Chest x-ray show no infiltrate. CT of the head was okay. Currently, his blood pressure is running low and the ICU started him on pressors. He was having hypothermia. Admission Exam Per Admitting Provider GENERAL: The patient is intubated and sedated. HEENT: Pupils are pinpoint. Head atraumatic. NECK: No JVD, no neck masses seen. CARDIOVASCULAR: S1, S2 heard, regular rate and rhythm, no murmur, no gallop. RESPIRATORY SYSTEM: Normal AP diameter. Diminished bilateral breath sounds. No wheezing, no crackles. ABDOMEN: Soft, bowel sounds present. No distention. CENTRAL NERVOUS SYSTEM: Intubated and sedated. EXTREMITIES: No edema, no erythema. VITAL SIGNS: Temperature 34.5, pulse 59, [id number], blood pressure 91/68, oxygen 97% on mechanical ventilation. Principal Diagnosis Acute exacerbation of COPD, unresponsive episode-resolved completely, acute on chronic respiratory failure on home oxygen, tobacco use disorder Discharge Exam Constitutional well developed, well nourished, + acute distress and + ill appearing Eyes PERRL, conjunctivae normal, anicteric sclerae ENMT external ear and nose normal, oropharynx normal Neck trachea midline, no thyromegaly Respiratory no respiratory distress (Minimal shortness of breath at rest on oxygen mask) Auscultation: + diminished lung sounds; no crackles (Mild bibasilar crackles) and no wheezes (Wheezing is worse today bilateral) Cardiovascular Rate/Rhythm: regular rate and regular rhythm Heart Sounds: no murmur Gastrointestinal (Abdomen) Inspection/Auscultation: abdomen normal to inspection and normal bowel sounds Percussion/Palpation: abdomen soft; abdomen nontender Neurologic moves all extremities; no focal motor deficits Lymphatic no cervical or axillary lymphadenopathy Discharge Data Allergies Allergy/AdvReac Type Severity Reaction Status Date / Time No Known Allergies Allergy Unverified 03/20/19 08:55 Consultations 11/27/19 19:20 ED Decision to Admit Stat 11/27/19 22:33 Consult Case Management - Discharge Planning Routine Consult Plane Captain Routine Ordered Studies 11/27/19 18:10 CT head/brain wo con Stat 11/27/19 20:17 CT angio chest PE protocol Urgent CT angio head w con Urgent CT angio neck with con Urgent 11/27/19 20:55 CT abd pelvis IV con only Urgent 11/27/19 21:59 US point of care ultrasound Routine Hospital Course (1) Unresponsiveness: Was found to be unresponsive at home by the Has a pulse on arrival of EMS and the patient was intubated in field Causes could be multifactorial including use of narcotics/polypharmacy/respiratory failure/infection Urine tox screen showed positivity for ecstasy, benzodiazepines and methadone Has been extubated this morning 11/28/2019 Better but remains mildly shortness of breath at rest He admits to have taken 2 of oxycodone and 2 of Xanax on the day of admission, likely complicating his current situation Remains pleasantly confused otherwise alert awake and oriented Back to his baseline without any confusion and or weakness We will get PT and OT evaluation and possible discharge home tomorrow Will be discharging home this afternoon (2) Shock: Noted to have very low blood pressure on arrival Required vasopressors to maintain blood pressure Will wean off vasopressors this morning Blood pressure remains around 120s Blood pressure remains on the higher side Will restart his home medication Blood pressure is running the higher side of normal Possible sepsis is not ruled out yet No evidence of pneumonia and/or urinary tract infection as of yet Has been getting intravenous antibiotics with cefepime, doxycycline and vancomycin Awaiting blood cultures and urine cultures and sputum culture We will continue current antibiotics for now Repeat chest x-ray did not show any consolidation We will continue current antibiotics Blood cultures have been negative Sputum culture showed normal niya very few gram-positive cocci Will continue with intravenous Levaquin for now and discontinue vancomycin, discussed with finished goods inspector Will give oral Levaquin on discharge to complete a course of 7 days (3) Acute respiratory failure with hypoxia: Has history of COPD without any exacerbation Came in with acute respiratory failure Required intubation in field Appreciate finished goods inspector input and recommendation Has been extubated this morning Has been getting intravenous methylprednisone Using oxygen mask at 5 L maintain saturation Has chronic respiratory failure and uses oxygen at home Continue home oxygen at discharge Hypophosphatemia We will replace and monitor Normalized (4) COPD (chronic obstructive pulmonary disease): As above Has been getting intravenous methylprednisone Continue nebs treatment as well Has COPD exacerbation ,infective Nebulized bronchodilator, intravenous Solu-Medrol and IV Levaquin Bronchodilator has been changed to as needed We will change her Solu-Medrol to oral prednisone from tomorrow Prednisone should be given for 5 days in total (5) Bipolar disorder: Antipsychotic medications are on hold now Please start dose as soon as possible Degenerative disc disease Has been taking hydrocodone occasionally for that We will transfer the patient to medical telemetry unit for continuation of care He will be discharged home this afternoon Total Time Total Time Spent Total Time Spent (In Minutes): 35 minutes Total Time Includes: Examination of the Patient, Discharge Planning, Medication Reconciliation and Communication With Other Providers Discharge Plan Discharge Items Patient Disposition: Home - Self-Care Reason For Visit: RESPIRATORY ARREST Discharge Diagnosis: Acute exacerbation of COPD, unresponsive episode-resolved completely, acute on chronic respiratory failure on home oxygen, tobacco use disorder Condition on Discharge: Fair Activity: Resume your previous activity Non-emergency contact: Primary Care Provider Call non-emergency contact if: you have any medication questions and your symptoms worsen Follow-up/Referrals: Chris Diaz, DO [Primary Care Provider] - 12/09/19 10:00 am (12/09/2019 10:00 AM Provider Dano Weber MD Department Family Practice [facility] ) Diet: Heart Healthy Diet Comment: Minced and moist Addtl Attending Provider Instructions: Please take precaution to avoid fall Strongly advised to quit smoking Pending Studies at Discharge: No Stand-Alone Forms: My SR Labs, Smoking Cessation Medications and DC Order Prescriptions: Continued mirtazapine 15 mg tablet 15 mg PO HS RF: 0 aspirin [Aspir-81] 81 mg Tablet,Delayed Release (Dr/Ec) 81 mg PO DAILY RF: 0 ipratropium-albuterol 0.5 mg-3 mg(2.5 mg base)/3 mL solution for nebulization 3 ml inhalation Q4 PRN (Reason: Shortness Of Breath) RF: 0 alprazolam [Xanax] 1 mg tablet 1 mg PO TID RF: 0 tizanidine [Zanaflex] 4 mg tablet 4 mg PO TID PRN (Reason: Muscle Spasm) RF: 0 sertraline [Zoloft] 100 mg tablet 200 mg PO QPM RF: 0 albuterol sulfate 90 mcg/actuation HFA aerosol inhaler 2 puffs INH QID PRN (Reason: shortness of breath or wheezing) Qty: 18 RF: 3 Changed hydrocodone-acetaminophen [[place]] 10-325 mg tablet 0.5 tab PO BID Qty: 0 RF: 0 Discharge Orders: Discharge Order (Routine); Ordered 12/02/19 Ordered By: Ricarda Scott Admission Data Admit Date/Time: 11/27/19 20:28 Attending Provider: Ricarda Scott Admit Provider: Alonzo Hawley Primary Care Provider: Chris Diaz Other Providers: Lazaro Garcia Other Interventions: Discharge Summary Assessment (RN) Last Done: 12/02/19 14:31 DC Date/Time DO NOT enter until pt leaves facility: 12/02/19 16:32
== END 2019-12-02 16:32 | disposition home or self-care (01) | DRG 208 ==
LOC: ED 18:00 → 1E 20:28 → 2S 11-30 18:50
DX: Z99.81 Dependence on supplemental oxygen; F31.9 Bipolar disorder, unspecified; Z79.891 Long term (current) use of opiate analgesic; G93.40 Encephalopathy, unspecified; I46.9 Cardiac arrest, cause unspecified; F17.210 Nicotine dependence, cigarettes, uncomplicated; J43.9 Emphysema, unspecified; I24.8 Other forms of acute ischemic heart disease; E87.2 Acidosis; Z51.81 Encounter for therapeutic drug level monitoring; Z79.899 Other long term (current) drug therapy; T42.4X5A Adverse effect of benzodiazepines, initial encounter; E83.39 Other disorders of phosphorus metabolism; T40.2X5A Adverse effect of other opioids, initial encounter; M51.9 Unspecified thoracic, thoracolumbar and lumbosacral intervertebral disc disorder; E16.2 Hypoglycemia, unspecified; F41.9 Anxiety disorder, unspecified; R91.8 Other nonspecific abnormal finding of lung field; J96.21 Acute and chronic respiratory failure with hypoxia; R65.21 Severe sepsis with septic shock; N17.0 Acute kidney failure with tubular necrosis; R57.0 Cardiogenic shock; R68.0 Hypothermia, not associated with low environmental temperature; A41.9 Sepsis, unspecified organism; J96.12 Chronic respiratory failure with hypercapnia; R84.5 Abnormal microbiological findings in specimens from respiratory organs and thorax; G47.00 Insomnia, unspecified; G89.4 Chronic pain syndrome; Z79.82 Long term (current) use of aspirin; B99.9 Unspecified infectious disease

== ENCOUNTER 2020-05-09 07:46 | Inpatient (IN) ==
[2020-05-09] MEDS ORDERED: PIPERACILLIN/TAZOBACTAM 4.5 GM/120 ML BAG IV ONE (07:56)
[2020-05-09] MEDS ORDERED: DEXAMETHASONE SOD INJ 10 MG/ML VIAL IV ONE (07:56)
[2020-05-09] MEDS ORDERED: PIPERACILL/TAZOBAC CONSULT ACTIVE PRN ×2 (07:56→14:09)
[2020-05-09] MEDS ORDERED: ALBUT/IPRATROP 3MG/0.5MG NEB 3 ML VIAL NEB ONE (07:56)
[2020-05-09] MEDS ORDERED: SODIUM CHLORIDE 0.9% 1000ML 1,000 ML IV SCH (08:00)
--- NOTE | 2020-05-09 08:21 | Emergency Department Note ---
Impression & Plan Acute respiratory failure, Acute respiratory acidosis, Benzodiazepine withdrawal, Acute alteration in mental status, Pneumonia ED Provider Note NAME: ZE BO AGE: 60 SEX: M : 1960 ARRIVES VIA: Ambulance INFORMANT: Patient, the patient's significant other, Loretta. Additional history is obtained from the prehospital personnel. ED PROVIDER(S): Tone Marshall DO CHIEF COMPLAINT: Shortness of breath HPI: The patient is a 60-year-old male who presented to the emergency department for an evaluation of difficulty breathing. The patient is in very severe respiratory distress. I did receive a prehospital notification about this patient and the patient was taken directly to the respiratory isolation room and was evaluated by myself and nursing staff. The patient has a history of COPD and continues to use tobacco products. His history is difficult to obtain because the patient is very obtunded at this time. Further history was obtained from the patient's significant other. Apparently the patient has had problems similar to this approximately 1 month ago. He was admitted to our facility and diagnosed with pneumonia. At that time he was discharged home on antibiotics and steroids. He uses supplemental oxygen throughout the day. He also uses CPAP at home. Acutely what happened the patient was having difficulty breathing overnight. She awoke to found him confused and removing his oxygen. At that time the oxygen was replaced and the patient appeared to improve. This morning when his significant other woke she found him to be struggling to breathe. She tried to get his oxygen and his CPAP placed back on him but he was very obtunded and kept pushing away the equipment. 911 was called. Upon arrival the patient was found to be in severe respiratory distress with oxygen saturations in the 7 0s. He was placed on their BiPAP with supplemental oxygen. He also received terbutaline prior to arrival. The patient had no definite exposure to COVID-19 but he was treated with respiratory isolation and COVID-19 isolation protocol. The patient improved with his oxygen saturation however his mental status continues to be poor. According to his significant other she is noticed he had decreased activity over the last 3 weeks. He is been very depressed about an illness with his parent. He had decreased p.o. intake for the last week. When he was here previously he was using methadone but his significant other states that this was obtained from a friend and he does not normally use this medication and she does not think he has been using any opiate-based medications recently because he cannot get out of bed. She tried to take them for pulmonary appointment this and he was very obtunded. He also takes Xanax for severe anxiety. She states that this prescription is all gone but she feels that he is been taking it inappropriately and not overdosing on the medication all at once. She feels this prescription was filled at the beginning of the month. The patient was placed on her BiPAP upon arrival to room A9B. There is been no history of trauma. The patient was not complaining of headache. He has had no fever but does have a nonproductive cough which the patient's significant other feels is consistent with his COPD. ROS: See above HPI for pertinent positives & negatives. A total of 10 systems reviewed and were otherwise negative. PAST MEDICAL HISTORY: See Below PAST SURGICAL HISTORY: See Below FAMILY HISTORY: See Below SOCIAL HISTORY: See Below HOME MEDICATIONS: See Below ALLERGIES: See Below VITALS: See Below PHYSICAL EXAMINATION: GENERAL: The patient is obtunded and does not answer questions appropriately. He is slow to follow commands at all. EYES: The conjunctivae are clear. The pupils are round and reactive. EARS, NOSE, MOUTH AND THROAT: The nose is without any evidence of any deformity. Mucous members are dry. NECK: The neck is nontender and supple. RESPIRATORY: Shallow and ineffective respirations are noted. Absent breath sounds are noted throughout. Abdominal breathing with intercostal retractions are noted. CARDIOVASCULAR: Regular rate and rhythm noted there no murmurs rubs or gallops normal S1 normal S2. GASTROINTESTINAL: Abdominal breathing was noted. MUSCULOSKELETAL/EXTREMITIES: There is no evidence of gross deformity full range of motion is noted in the hips and shoulders. SKIN: There is no pedal edema. Skin is mottled. Pulses are symmetric in both feet. NEUROLOGIC: Patient is awake and looking around the room. He does not answer questions. It is impossible to assess orientation at this time. Patient is moving all extremities well. MEDICAL DECISION MAKING: The patient is a 60-year-old male who does have a history of COPD and tobacco us e who presented to the emergency department with altered mental status and respiratory failure. The patient was placed on BiPAP prior to arrival. We continued BiPAP in the emergency department. He continues to have difficulty breathing hypoxia and respiratory distress. The decision was made to intubate the patient. He is very delirious at this time. Some of this could be explained by the patient's chronic use of benzodiazepines. According to his significant other he is not had any benzodiazepines in a few days and is possible he is having withdrawal. I discussed the patient's laboratory and radiographic studies with his significant other. He was reevaluated multiple times. I discussed this case with the title i math tutor as well as the [facility] hospitalist. The patient was started on propofol post intubation. He was also treated with IV fluids IV antibiotics and IV Decadron. The patient received Versed as well. CT of the chest was obtained and no signs of PE were noted. Triage Nursing notes reviewed. Prior medical records reviewed Vital Signs: reviewed and remarkable for hypoxia, episodes of hypotension. Differential diagnosis: Reactive airway disease, pneumonia, pneumothorax, COPD, CHF, infections, cardiac ischemia, pulmonary embolism, musculoskeletal, gastrointestinal, as well as other pathologies. ER treatment provided: See below Diagnostics interpreted by me: ECG: EKG was obtained in the emergency department. My interpretation is sinus rhythm at [address] depressions with lateral ST abnormalities and T wave abnormalities were noted. Early transition was noted. This was compared to a tracing from April 05, 2020. The ST and T wave abnormalities are new compared to the previous tracing. Cardiac Monitoring: An order was placed for continuous cardiac monitoring. The monitor shows a rate of 75 bpm with sinus rhythm. Laboratory studies: As stated above and show below. Imaging studies: See below Consultation(s): 5374: I discussed this case with Dr. Sanon. [id number]: I discussed this case with Dr. Magana 1140: I discussed this case with Dr. Almodovar. He is aware of the patient's progress at this point. He will evaluate the patient in the emergency depart ment for further management. ED COURSE: Procedures: Endotracheal Intubation Indication respiratory failure. The patient was on 100% oxygen via NRB prior to the procedure. Suction, airway equipment, RSI drugs, respiratory equipment, and appropriate personnel were prepared prior to the initiation of the procedure. A time out was taken. Induction was performed with etomidate. After observing the clinical benefit of the medications, the airway was easily visualized utilizing a glide scope. A 8.0 size ETT tube was placed atraumatically to 23 cm using standard technique. The cuff inflated without signs of malfunction. There were bilateral breath sounds, positive colormetric change, no gastric sounds, a good capnography waveform, and post procedure pulse oximetry was 92%. Post intubation sedation and paralysis was administered using propofol. There were no complications. PDMP:reviewed and no issues Critical Care: I have personally spent greater than 120 minutes of critical care time in the direct management of this patient. This includes bedside care, interpretation of diagnostic studies, and testing, discussion with consultants, patient, and family members, and other required patient management activities. This 120 minutes is in excess of all separately billable procedures. Past Med/Surg History Medical History (Updated 05/09/20 @ 13:41 by Tone Marshall DO) Anxiety Bipolar disorder Chronic pain COPD (chronic obstructive pulmonary disease) H/O: CVA (cerebrovascular accident) Tobacco use disorder Surgical History History of cervical spinal surgery History of hip surgery Family History Other Heart disease Social History Smoking Status: Former smoker Cigarettes Per Day: 10; Second Hand Exposure: Yes; Hx Alcohol Use: No Hx Substance Use: No Preferred Language: Amharic Communication Ability: Effective Tack Cutter Required: No Beliefs That Will Affect Care: None Current Living Situation: Spouse Feels Safe at Home: Yes Assistive Devices: Oxygen - Continuous Allergies Allergies Allergy/AdvReac Type Severity Reaction Status Date / Time No Known Allergies Allergy Verified 05/09/20 08:46 Home Meds Home Medications Medication Instructions Recorded Confirmed alprazolam [Xanax] 1 mg PO TID 03/20/19 05/09/20 ipratropium-albuterol 3 ml INHALATION Q4H PRN 03/20/19 05/09/20 sertraline [Zoloft] 300 mg PO QPM 03/20/19 05/09/20 tizanidine [Zanaflex] 2 mg PO Q8H PRN 03/20/19 05/09/20 mirtazapine 15 mg PO HS 11/27/19 05/09/20 albuterol sulfate [Ventolin HFA] 2 puff INHALATION Q4H PRN 04/05/20 05/09/20 aspirin [Aspirin Low Dose] 81 mg PO DAILY 04/05/20 05/09/20 Results & Data (ED) Vital Signs Vital Signs - 24 hr 05/09/20 07:49 05/09/20 07:55 05/09/20 07:57 Pulse Rate 94 H 124 H 93 H Pulse Rate [Right Finger] Pulse Rate from SpO2 Sensor 116 H 89 Pulse Rhythm Respiratory Rate 40 H 32 H 35 H Respiratory Effort / Characteristics Spontaneous Short of Breath SOB on Exertion Respiratory Depth Retractive Respiratory Pattern Blood Pressure 164/97 H 164/97 H Blood Pressure [Left Arm] Blood Pressure Mean 119 108 Blood Pressure Mean [Left Arm] Pulse Oximetry 98 100 99 Oxygen Delivery Method CPAP Fraction of Inspired Oxygen Sepsis Recent Fever Within 48 Hours Yes Sepsis New/Unexplained Change in Mental Status Yes Sepsis Action Taken by Nursing Physician Notified End-Tidal CO2 05/09/20 08:00 05/09/20 08:14 05/09/20 08:15 Pulse Rate 93 H 88 Pulse Rate [Right Finger] 101 H Pulse Rate from SpO2 Sensor 91 H Pulse Rhythm Regular Respiratory Rate 29 H 35 H 32 H Respiratory Effort / Characteristics Spontaneous Spontaneous Spontaneous Accessory Muscle Use Retracting Short of Breath SOB on Exertion Respiratory Depth Shallow Respiratory Pattern Tachypnea Blood Pressure 163/111 H Blood Pressure [Left Arm] Blood Pressure Mean 140 Blood Pressure Mean [Left Arm] Pulse Oximetry 97 97 98 Oxygen Delivery Method BiPAP BiPAP Fraction of Inspired Oxygen 35 35 Sepsis Recent Fever Within 48 Hours Sepsis New/Unexplained Change in Mental Status Sepsis Action Taken by Nursing End-Tidal CO2 05/09/20 08:28 05/09/20 08:30 05/09/20 08:31 Pulse Rate 93 H 93 H 96 H Pulse Rate [Right Finger] Pulse Rate from SpO2 Sensor 85 90 80 Pulse Rhythm Respiratory Rate 31 H 29 H 34 H Respiratory Effort / Characteristics Respiratory Depth Respiratory Pattern Blood Pressure 126/96 171/122 H Blood Pressure [Left Arm] Blood Pressure Mean 109 151 Blood Pressure Mean [Left Arm] Pulse Oximetry 99 99 99 Oxygen Delivery Method Fraction of Inspired Oxygen Sepsis Recent Fever Within 48 Hours Sepsis New/Unexplained Change in Mental Status Sepsis Action Taken by Nursing End-Tidal CO2 05/09/20 09:47 05/09/20 10:24 05/09/20 10:48 Pulse Rate Pulse Rate [Right Finger] 95 H 92 H Pulse Rate from SpO2 Sensor Pulse Rhythm Respiratory Rate 24 20 Respiratory Effort / Characteristics Respiratory Depth Respiratory Pattern Blood Pressure Blood Pressure [Left Arm] 162/116 H 130/77 Blood Pressure Mean Blood Pressure Mean [Left Arm] 131 94 Pulse Oximetry 99 96 Oxygen Delivery Method BiPAP BiPAP Fraction of Inspired Oxygen 30 Sepsis Recent Fever Within 48 Hours Sepsis New/Unexplained Change in Mental Status Sepsis Action Taken by Nursing End-Tidal CO2 05/09/20 11:00 05/09/20 11:01 05/09/20 11:08 Pulse Rate 87 88 85 Pulse Rate [Right Finger] Pulse Rate from SpO2 Sensor 87 89 85 Pulse Rhythm Respiratory Rate 30 H 33 H 34 H Respiratory Effort / Characteristics Respiratory Depth Respiratory Pattern Blood Pressure 92/71 L 119/71 Blood Pressure [Left Arm] Blood Pressure Mean 84 80 Blood Pressure Mean [Left Arm] Pulse Oximetry 93 94 91 Oxygen Delivery Method BiPAP Fraction of Inspired Oxygen Sepsis Recent Fever Within 48 Hours Sepsis New/Unexplained Change in Mental Status Sepsis Action Taken by Nursing End-Tidal CO2 05/09/20 11:10 05/09/20 11:20 05/09/20 11:30 Pulse Rate 86 80 77 Pulse Rate [Right Finger] Pulse Rate from SpO2 Sensor 86 81 78 Pulse Rhythm Respiratory Rate 30 H 18 31 H Respiratory Effort / Characteristics Respiratory Depth Respiratory Pattern Blood Pressure 138/87 Blood Pressure [Left Arm] Blood Pressure Mean 102 Blood Pressure Mean [Left Arm] Pulse Oximetry 91 91 95 Oxygen Delivery Method Fraction of Inspired Oxygen Sepsis Recent Fever Within 48 Hours Sepsis New/Unexplained Change in Mental Status Sepsis Action Taken by Nursing End-Tidal CO2 05/09/20 11:35 05/09/20 11:40 05/09/20 11:45 Pulse Rate 95 H 79 82 Pulse Rate [Right Finger] Pulse Rate from SpO2 Sensor 94 H 78 82 Pulse Rhythm Respiratory Rate 17 23 Respiratory Effort / Characteristics Respiratory Depth Respiratory Pattern Blood Pressure 153/119 H 137/84 154/104 H Blood Pressure [Left Arm] Blood Pressure Mean 131 95 115 Blood Pressure Mean [Left Arm] Pulse Oximetry 99 100 100 Oxygen Delivery Method Fraction of Inspired Oxygen Sepsis Recent Fever Within 48 Hours Sepsis New/Unexplained Change in Mental Status Sepsis Action Taken by Nursing End-Tidal CO2 62 05/09/20 11:50 05/09/20 11:53 05/09/20 11:54 Pulse Rate 76 74 72 Pulse Rate [Right Finger] Pulse Rate from SpO2 Sensor 76 74 73 Pulse Rhythm Respiratory Rate 20 Respiratory Effort / Characteristics Respiratory Depth Respiratory Pattern Blood Pressure 80/51 L 82/51 L Blood Pressure [Left Arm] Blood Pressure Mean 56 60 Blood Pressure Mean [Left Arm] Pulse Oximetry 99 98 Oxygen Delivery Method Fraction of Inspired Oxygen 40 Sepsis Recent Fever Within 48 Hours Sepsis New/Unexplained Change in Mental Status Sepsis Action Taken by Nursing End-Tidal CO2 60 55 56 05/09/20 11:55 05/09/20 12:00 05/09/20 12:05 Pulse Rate 71 66 70 Pulse Rate [Right Finger] Pulse Rate from SpO2 Sensor 70 65 70 Pulse Rhythm Respiratory Rate Respiratory Effort / Characteristics Respiratory Depth Respiratory Pattern Blood Pressure 80/51 L 99/56 L 123/79 Blood Pressure [Left Arm] Blood Pressure Mean 61 69 96 Blood Pressure Mean [Left Arm] Pulse Oximetry 97 92 93 Oxygen Delivery Method Fraction of Inspired Oxygen Sepsis Recent Fever Within 48 Hours Sepsis New/Unexplained Change in Mental Status Sepsis Action Taken by Nursing End-Tidal CO2 55 57 Home Medications Current Medication List: was personally reviewed by me Laboratory Data Attestation: I reviewed the patient's lab results. Result diagrams: 05/09/20 08:11 05/09/20 08:11 Lab Results 05/09/20 05/09/20 05/09/20 Range/Units 08:11 08:11 08:11 WBC 32.32 H* (4.8-10.8) K/uL RBC 4.86 (4.7-6.1) M/uL Hgb 14.7 (14.0-18.0) g/dL Hct 45.2 (42-52) % MCV 93.0 (80-100) fL MCH 30.2 (25-34) pg MCHC 32.5 (32-36) g/dL RDW Std Deviation 43.9 (36.4-46.3) fL RDW Coeff of Mani 13.0 (11.5-14.5) % Plt Count 451 H (130-400) K/uL MPV 10.8 H (7.4-10.4) fL Immature Gran % (Auto) 0.5 % Neut % (Auto) 90.5 % Lymph % (Auto) 3.6 % [place] % (Auto) 5.3 % Eos % (Auto) 0.0 % Baso % (Auto) 0.1 % Neut # (Auto) 29.27 H (1.4-6.5) K/uL Lymph # (Auto) 1.16 L (1.2-3.4) K/uL [place] # (Auto) 1.71 H (0.11-0.59) K/uL Eos # (Auto) 0.00 (0-0.5) K/uL Baso # (Auto) 0.03 (0-0.2) K/uL Immature Gran # (Auto) 0.15 H (0.00-0.02) K/uL PT 11.8 (9.0-12.0) Seconds INR 1.1 (0.9-1.1) APTT 26.0 (21.0-31.0) Seconds PTT Ratio 0.9 D-Dimer 2590 H* (0-500) ug/L FEU VBG pH (7.36-7.41) VBG pCO2 (38-50) mmHg VBG pO2 mmHg VBG HCO3 mmol/L VBG O2 Saturation % VBG Base Excess mEq/L Barometric Pressure mm/Hg Sodium 138 (136-145) mmol/L Potassium 3.7 (3.5-5.1) mmol/L Chloride 92 L (98-107) mmol/L Carbon Dioxide 39 H (21-32) mmol/L Anion Gap 6.0 (3-11) BUN 38 H (7-18) mg/dl Creatinine 1.08 (0.6-1.4) mg/dl Est Cr Clr Drug Dosing 54.6 ml/min Est GFR ( Amer) 85.4 Est GFR (Non-Af Amer) 73.7 BUN/Creatinine Ratio 35.4 H (10-20) Glucose 117 H (70-99) mg/dl Lactate (0.4-2.0) mmol/L Calcium 10.3 H (8.5-10.1) mg/dl Magnesium 2.5 H (1.8-2.4) mg/dl Total Bilirubin 0.6 (0.2-1) mg/dl AST 25 (15-37) U/L ALT 27 (12-78) U/L Alkaline Phosphatase 115 (45-117) U/L Ammonia (11-32) umol/L Troponin I 0.046 H* (0-0.045) ng/ml Total Protein 8.7 H (6.4-8.2) gm/dl Albumin 3.3 L (3.4-5.0) gm/dl Globulin 5.4 H (2.5-4.0) gm/dl Albumin/Globulin Ratio 0.6 L (0.9-2) Procalcitonin (0-0.5) ng/ml Urine Color Urine Appearance (Clear) Urine pH (4.5-7.5) Ur Specific [place] (1.000-1.030) Urine Protein (Negative) Urine Glucose (UA) (Negative) Urine Ketones (Negative) Urine Blood (Negative) Urine Nitrite (Negative) Urine Bilirubin (Negative) Urine Urobilinogen (Negative) Ur Leukocyte Esterase (Negative) Urine WBC (Auto) (0-5) /hpf Urine RBC (Auto) (0-4) /hpf U Hyaline Cast (Auto) (0-5) /lpf U Epithel Cells (Auto) (0-5) /lpf Urine Bacteria (Auto) (Negative) Granular Casts (0) /lpf Salicylates (2.8-20) mg/dl Urine Opiates Screen (Neg) Ur Methadone, Qual (Neg) Acetaminophen (10-30) ug/ml Urine Barbiturates (Neg) Ur Phencyclidine (PCP) (Neg) U Amphetamin/Meth Scrn (Neg) MDMA (Ecstasy) Screen (Neg) U Benzodiazepines Scrn (Neg) Ur Cocaine Metabolite (Neg) U Marijuana (THC) Screen (Neg) Ethyl Alcohol mg/dL (0-3) mg/dl Adenovirus (PCR) (NotDetected) B. pertussis DNA (PCR) (NotDetected) B.parapertussis DNA PCR (NotDetected) C. pneumoniae DNA (PCR) (NotDetected) Coronavirus OC43 (PCR) (NotDetected) Coronavirus HKU1 (PCR) (NotDetected) Coronavirus 229E (PCR) (NotDetected) COVID-19 Eval Order COVID-19 PCR (NotDetected) Coronavirus NL63 (PCR) (NotDetected) Human Metapneumovir PCR (NotDetected) Influenza Type A (PCR) (NotDetected) Influenza Type B (PCR) (NotDetected) M. pneumoniae (PCR) (NotDetected) Parainfluenza 1 (PCR) (NotDetected) Parainfluenza 2 (PCR) (NotDetected) Parainfluenza 3 (PCR) (NotDetected) Parainfluenza 4 (PCR) (NotDetected) RSV (PCR) (NotDetected) Entero/Rhino (PCR) (NotDetected) Blood Type Antibody Screen 05/09/20 05/09/20 05/09/20 Range/Units 08:11 08:11 08:11 WBC (4.8-10.8) K/uL RBC (4.7-6.1) M/uL Hgb (14.0-18.0) g/dL Hct (42-52) % MCV (80-100) fL MCH (25-34) pg MCHC (32-36) g/dL RDW Std Deviation (36.4-46.3) fL RDW Coeff of Mani (11.5-14.5) % Plt Count (130-400) K/uL MPV (7.4-10.4) fL Immature Gran % (Auto) % Neut % (Auto) % Lymph % (Auto) % [place] % (Auto) % Eos % (Auto) % Baso % (Auto) % Neut # (Auto) (1.4-6.5) K/uL Lymph # (Auto) (1.2-3.4) K/uL [place] # (Auto) (0.11-0.59) K/uL Eos # (Auto) (0-0.5) K/uL Baso # (Auto) (0-0.2) K/uL Immature Gran # (Auto) (0.00-0.02) K/uL PT (9.0-12.0) Seconds INR (0.9-1.1) APTT (21.0-31.0) Seconds PTT Ratio D-Dimer (0-500) ug/L FEU VBG pH (7.36-7.41) VBG pCO2 (38-50) mmHg VBG pO2 mmHg VBG HCO3 mmol/L VBG O2 Saturation % VBG Base Excess mEq/L Barometric Pressure mm/Hg Sodium (136-145) mmol/L Potassium (3.5-5.1) mmol/L Chloride (98-107) mmol/L Carbon Dioxide (21-32) mmol/L Anion Gap (3-11) BUN (7-18) mg/dl Creatinine (0.6-1.4) mg/dl Est Cr Clr Drug Dosing ml/min Est GFR ( Amer) Est GFR (Non-Af Amer) BUN/Creatinine Ratio (10-20) Glucose (70-99) mg/dl Lactate 2.6 H* (0.4-2.0) mmol/L Calcium (8.5-10.1) mg/dl Magnesium (1.8-2.4) mg/dl Total Bilirubin (0.2-1) mg/dl AST (15-37) U/L ALT (12-78) U/L Alkaline Phosphatase (45-117) U/L Ammonia (11-32) umol/L Troponin I (0-0.045) ng/ml Total Protein (6.4-8.2) gm/dl Albumin (3.4-5.0) gm/dl Globulin (2.5-4.0) gm/dl Albumin/Globulin Ratio (0.9-2) Procalcitonin 0.06 (0-0.5) ng/ml Urine Color Urine Appearance (Clear) Urine pH (4.5-7.5) Ur Specific [place] (1.000-1.030) Urine Protein (Negative) Urine Glucose (UA) (Negative) Urine Ketones (Negative) Urine Blood (Negative) Urine Nitrite (Negative) Urine Bilirubin (Negative) Urine Urobilinogen (Negative) Ur Leukocyte Esterase (Negative) Urine WBC (Auto) (0-5) /hpf Urine RBC (Auto) (0-4) /hpf U Hyaline Cast (Auto) (0-5) /lpf U Epithel Cells (Auto) (0-5) /lpf Urine Bacteria (Auto) (Negative) Granular Casts (0) /lpf Salicylates < 1.7 L (2.8-20) mg/dl Urine Opiates Screen (Neg) Ur Methadone, Qual (Neg) Acetaminophen < 2 L (10-30) ug/ml Urine Barbiturates (Neg) Ur Phencyclidine (PCP) (Neg) U Amphetamin/Meth Scrn (Neg) MDMA (Ecstasy) Screen (Neg) U Benzodiazepines Scrn (Neg) Ur Cocaine Metabolite (Neg) U Marijuana (THC) Screen (Neg) Ethyl Alcohol mg/dL (0-3) mg/dl Adenovirus (PCR) (NotDetected) B. pertussis DNA (PCR) (NotDetected) B.parapertussis DNA PCR (NotDetected) C. pneumoniae DNA (PCR) (NotDetected) Coronavirus OC43 (PCR) (NotDetected) Coronavirus HKU1 (PCR) (NotDetected) Coronavirus 229E (PCR) (NotDetected) COVID-19 Eval Order COVID-19 PCR (NotDetected) Coronavirus NL63 (PCR) (NotDetected) Human Metapneumovir PCR (NotDetected) Influenza Type A (PCR) (NotDetected) Influenza Type B (PCR) (NotDetected) M. pneumoniae (PCR) (NotDetected) Parainfluenza 1 (PCR) (NotDetected) Parainfluenza 2 (PCR) (NotDetected) Parainfluenza 3 (PCR) (NotDetected) Parainfluenza 4 (PCR) (NotDetected) RSV (PCR) (NotDetected) Entero/Rhino (PCR) (NotDetected) Blood Type Antibody Screen 05/09/20 05/09/20 05/09/20 Range/Units 08:11 08:11 08:15 WBC (4.8-10.8) K/uL RBC (4.7-6.1) M/uL Hgb (14.0-18.0) g/dL Hct (42-52) % MCV (80-100) fL MCH (25-34) pg MCHC (32-36) g/dL RDW Std Deviation (36.4-46.3) fL RDW Coeff of Mani (11.5-14.5) % Plt Count (130-400) K/uL MPV (7.4-10.4) fL Immature Gran % (Auto) % Neut % (Auto) % Lymph % (Auto) % [place] % (Auto) % Eos % (Auto) % Baso % (Auto) % Neut # (Auto) (1.4-6.5) K/uL Lymph # (Auto) (1.2-3.4) K/uL [place] # (Auto) (0.11-0.59) K/uL Eos # (Auto) (0-0.5) K/uL Baso # (Auto) (0-0.2) K/uL Immature Gran # (Auto) (0.00-0.02) K/uL PT (9.0-12.0) Seconds INR (0.9-1.1) APTT (21.0-31.0) Seconds PTT Ratio D-Dimer (0-500) ug/L FEU VBG pH 7.27 L (7.36-7.41) VBG pCO2 87 H (38-50) mmHg VBG pO2 44 mmHg VBG HCO3 39 mmol/L VBG O2 Saturation 69.3 % VBG Base Excess 9.1 mEq/L Barometric Pressure 744.1 mm/Hg Sodium (136-145) mmol/L Potassium (3.5-5.1) mmol/L Chloride (98-107) mmol/L Carbon Dioxide (21-32) mmol/L Anion Gap (3-11) BUN (7-18) mg/dl Creatinine (0.6-1.4) mg/dl Est Cr Clr Drug Dosing ml/min Est GFR ( Amer) Est GFR (Non-Af Amer) BUN/Creatinine Ratio (10-20) Glucose (70-99) mg/dl Lactate (0.4-2.0) mmol/L Calcium (8.5-10.1) mg/dl Magnesium (1.8-2.4) mg/dl Total Bilirubin (0.2-1) mg/dl AST (15-37) U/L ALT (12-78) U/L Alkaline Phosphatase (45-117) U/L Ammonia 14.8 (11-32) umol/L Troponin I (0-0.045) ng/ml Total Protein (6.4-8.2) gm/dl Albumin (3.4-5.0) gm/dl Globulin (2.5-4.0) gm/dl Albumin/Globulin Ratio (0.9-2) Procalcitonin (0-0.5) ng/ml Urine Color Urine Appearance (Clear) Urine pH (4.5-7.5) Ur Specific [place] (1.000-1.030) Urine Protein (Negative) Urine Glucose (UA) (Negative) Urine Ketones (Negative) Urine Blood (Negative) Urine Nitrite (Negative) Urine Bilirubin (Negative) Urine Urobilinogen (Negative) Ur Leukocyte Esterase (Negative) Urine WBC (Auto) (0-5) /hpf Urine RBC (Auto) (0-4) /hpf U Hyaline Cast (Auto) (0-5) /lpf U Epithel Cells (Auto) (0-5) /lpf Urine Bacteria (Auto) (Negative) Granular Casts (0) /lpf Salicylates (2.8-20) mg/dl Urine Opiates Screen (Neg) Ur Methadone, Qual (Neg) Acetaminophen (10-30) ug/ml Urine Barbiturates (Neg) Ur Phencyclidine (PCP) (Neg) U Amphetamin/Meth Scrn (Neg) MDMA (Ecstasy) Screen (Neg) U Benzodiazepines Scrn (Neg) Ur Cocaine Metabolite (Neg) U Marijuana (THC) Screen (Neg) Ethyl Alcohol mg/dL (0-3) mg/dl Adenovirus (PCR) (NotDetected) B. pertussis DNA (PCR) (NotDetected) B.parapertussis DNA PCR (NotDetected) C. pneumoniae DNA (PCR) (NotDetected) Coronavirus OC43 (PCR) (NotDetected) Coronavirus HKU1 (PCR) (NotDetected) Coronavirus 229E (PCR) (NotDetected) COVID-19 Eval Order COVID-19 PCR (NotDetected) Coronavirus NL63 (PCR) (NotDetected) Human Metapneumovir PCR (NotDetected) Influenza Type A (PCR) (NotDetected) Influenza Type B (PCR) (NotDetected) M. pneumoniae (PCR) (NotDetected) Parainfluenza 1 (PCR) (NotDetected) Parainfluenza 2 (PCR) (NotDetected) Parainfluenza 3 (PCR) (NotDetected) Parainfluenza 4 (PCR) (NotDetected) RSV (PCR) (NotDetected) Entero/Rhino (PCR) (NotDetected) Blood Type O Positive Antibody Screen NEGATIVE 05/09/20 05/09/20 05/09/20 Range/Units 08:21 08:21 08:26 WBC (4.8-10.8) K/uL RBC (4.7-6.1) M/uL Hgb (14.0-18.0) g/dL Hct (42-52) % MCV (80-100) fL MCH (25-34) pg MCHC (32-36) g/dL RDW Std Deviation (36.4-46.3) fL RDW Coeff of Mani (11.5-14.5) % Plt Count (130-400) K/uL MPV (7.4-10.4) fL Immature Gran % (Auto) % Neut % (Auto) % Lymph % (Auto) % Jerauld % (Auto) % Eos % (Auto) % Baso % (Auto) % Neut # (Auto) (1.4-6.5) K/uL Lymph # (Auto) (1.2-3.4) K/uL J[place]uld # (Auto) (0.11-0.59) K/uL Eos # (Auto) (0-0.5) K/uL Baso # (Auto) (0-0.2) K/uL Immature Gran # (Auto) (0.00-0.02) K/uL PT (9.0-12.0) Seconds INR (0.9-1.1) APTT (21.0-31.0) Seconds PTT Ratio D-Dimer (0-500) ug/L FEU VBG pH (7.36-7.41) VBG pCO2 (38-50) mmHg VBG pO2 mmHg VBG HCO3 mmol/L VBG O2 Saturation % VBG Base Excess mEq/L Barometric Pressure mm/Hg Sodium (136-145) mmol/L Potassium (3.5-5.1) mmol/L Chloride (98-107) mmol/L Carbon Dioxide (21-32) mmol/L Anion Gap (3-11) BUN (7-18) mg/dl Creatinine (0.6-1.4) mg/dl Est Cr Clr Drug Dosing ml/min Est GFR ( Amer) Est GFR (Non-Af Amer) BUN/Creatinine Ratio (10-20) Glucose (70-99) mg/dl Lactate (0.4-2.0) mmol/L Calcium (8.5-10.1) mg/dl Magnesium (1.8-2.4) mg/dl Total Bilirubin (0.2-1) mg/dl AST (15-37) U/L ALT (12-78) U/L Alkaline Phosphatase (45-117) U/L Ammonia (11-32) umol/L Troponin I (0-0.045) ng/ml Total Protein (6.4-8.2) gm/dl Albumin (3.4-5.0) gm/dl Globulin (2.5-4.0) gm/dl Albumin/Globulin Ratio (0.9-2) Procalcitonin (0-0.5) ng/ml Urine Color Urine Appearance (Clear) Urine pH (4.5-7.5) Ur Specific [place] (1.000-1.030) Urine Protein (Negative) Urine Glucose (UA) (Negative) Urine Ketones (Negative) Urine Blood (Negative) Urine Nitrite (Negative) Urine Bilirubin (Negative) Urine Urobilinogen (Negative) Ur Leukocyte Esterase (Negative) Urine WBC (Auto) (0-5) /hpf Urine RBC (Auto) (0-4) /hpf U Hyaline Cast (Auto) (0-5) /lpf U Epithel Cells (Auto) (0-5) /lpf Urine Bacteria (Auto) (Negative) Granular Casts (0) /lpf Salicylates (2.8-20) mg/dl Urine Opiates Screen (Neg) Ur Methadone, Qual (Neg) Acetaminophen (10-30) ug/ml Urine Barbiturates (Neg) Ur Phencyclidine (PCP) (Neg) U Amphetamin/Meth Scrn (Neg) MDMA (Ecstasy) Screen (Neg) U Benzodiazepines Scrn (Neg) Ur Cocaine Metabolite (Neg) U Marijuana (THC) Screen (Neg) Ethyl Alcohol mg/dL < 3.0 (0-3) mg/dl Adenovirus (PCR) Not Detected (NotDetected) B. pertussis DNA (PCR) Not Detected (NotDetected) B.parapertussis DNA PCR Not Detected (NotDetected) C. pneumoniae DNA (PCR) Not Detected (NotDetected) Coronavirus OC43 (PCR) Not Detected (NotDetected) Coronavirus HKU1 (PCR) Not Detected (NotDetected) Coronavirus 229E (PCR) Not Detected (NotDetected) COVID-19 Eval Order Dup asRespPanOrdered COVID-19 PCR Not Detected (NotDetected) Coronavirus NL63 (PCR) Not Detected (NotDetected) Human Metapneumovir PCR Not Detected (NotDetected) Influenza Type A (PCR) Not Detected (NotDetected) Influenza Type B (PCR) Not Detected (NotDetected) M. pneumoniae (PCR) Not Detected (NotDetected) Parainfluenza 1 (PCR) Not Detected (NotDetected) Parainfluenza 2 (PCR) Not Detected (NotDetected) Parainfluenza 3 (PCR) Not Detected (NotDetected) Parainfluenza 4 (PCR) Not Detected (NotDetected) RSV (PCR) Not Detected (NotDetected) Entero/Rhino (PCR) Not Detected (NotDetected) Blood Type Antibody Screen 05/09/20 05/09/20 Range/Units 08:40 08:40 WBC (4.8-10.8) K/uL RBC (4.7-6.1) M/uL Hgb (14.0-18.0) g/dL Hct (42-52) % MCV (80-100) fL MCH (25-34) pg MCHC (32-36) g/dL RDW Std Deviation (36.4-46.3) fL RDW Coeff of Mani (11.5-14.5) % Plt Count (130-400) K/uL MPV (7.4-10.4) fL Immature Gran % (Auto) % Neut % (Auto) % Lymph % (Auto) % [place] % (Auto) % Eos % (Auto) % Baso % (Auto) % Neut # (Auto) (1.4-6.5) K/uL Lymph # (Auto) (1.2-3.4) K/uL [place] # (Auto) (0.11-0.59) K/uL Eos # (Auto) (0-0.5) K/uL Baso # (Auto) (0-0.2) K/uL Immature Gran # (Auto) (0.00-0.02) K/uL PT (9.0-12.0) Seconds INR (0.9-1.1) APTT (21.0-31.0) Seconds PTT Ratio D-Dimer (0-500) ug/L FEU VBG pH (7.36-7.41) VBG pCO2 (38-50) mmHg VBG pO2 mmHg VBG HCO3 mmol/L VBG O2 Saturation % VBG Base Excess mEq/L Barometric Pressure mm/Hg Sodium (136-145) mmol/L Potassium (3.5-5.1) mmol/L Chloride (98-107) mmol/L Carbon Dioxide (21-32) mmol/L Anion Gap (3-11) BUN (7-18) mg/dl Creatinine (0.6-1.4) mg/dl Est Cr Clr Drug Dosing ml/min Est GFR ( Amer) Est GFR (Non-Af Amer) BUN/Creatinine Ratio (10-20) Glucose (70-99) mg/dl Lactate (0.4-2.0) mmol/L Calcium (8.5-10.1) mg/dl Magnesium (1.8-2.4) mg/dl Total Bilirubin (0.2-1) mg/dl AST (15-37) U/L ALT (12-78) U/L Alkaline Phosphatase (45-117) U/L Ammonia (11-32) umol/L Troponin I (0-0.045) ng/ml Total Protein (6.4-8.2) gm/dl Albumin (3.4-5.0) gm/dl Globulin (2.5-4.0) gm/dl Albumin/Globulin Ratio (0.9-2) Procalcitonin (0-0.5) ng/ml Urine Color Dark Yellow Urine Appearance Clear (Clear) Urine pH 5.0 (4.5-7.5) Ur Specific [place] 1.026 (1.000-1.030) Urine Protein 1+ H (Negative) Urine Glucose (UA) Negative (Negative) Urine Ketones Negative (Negative) Urine Blood 2+ H (Negative) Urine Nitrite Negative (Negative) Urine Bilirubin Negative (Negative) Urine Urobilinogen Negative (Negative) Ur Leukocyte Esterase Negative (Negative) Urine WBC (Auto) 1-5 (0-5) /hpf Urine RBC (Auto) 5-10 H (0-4) /hpf U Hyaline Cast (Auto) >30 H (0-5) /lpf U Epithel Cells (Auto) 20-30 H (0-5) /lpf Urine Bacteria (Auto) Negative (Negative) Granular Casts 10-20 H (0) /lpf Salicylates (2.8-20) mg/dl Urine Opiates Screen Neg (Neg) Ur Methadone, Qual Neg (Neg) Acetaminophen (10-30) ug/ml Urine Barbiturates Neg (Neg) Ur Phencyclidine (PCP) Neg (Neg) U Amphetamin/Meth Scrn Neg (Neg) MDMA (Ecstasy) Screen Neg (Neg) U Benzodiazepines Scrn Pos H (Neg) Ur Cocaine Metabolite Neg (Neg) U Marijuana (THC) Screen Neg (Neg) Ethyl Alcohol mg/dL (0-3) mg/dl Adenovirus (PCR) (NotDetected) B. pertussis DNA (PCR) (NotDetected) B.parapertussis DNA PCR (NotDetected) C. pneumoniae DNA (PCR) (NotDetected) Coronavirus OC43 (PCR) (NotDetected) Coronavirus HKU1 (PCR) (NotDetected) Coronavirus 229E (PCR) (NotDetected) COVID-19 Eval Order COVID-19 PCR (NotDetected) Coronavirus NL63 (PCR) (NotDetected) Human Metapneumovir PCR (NotDetected) Influenza Type A (PCR) (NotDetected) Influenza Type B (PCR) (NotDetected) M. pneumoniae (PCR) (NotDetected) Parainfluenza 1 (PCR) (NotDetected) Parainfluenza 2 (PCR) (NotDetected) Parainfluenza 3 (PCR) (NotDetected) Parainfluenza 4 (PCR) (NotDetected) RSV (PCR) (NotDetected) Entero/Rhino (PCR) (NotDetected) Blood Type Antibody Screen Administered Medications Propofol (Diprivan) 1,000 mg in 100 mls @ 6.444 mls/hr IV .[id number] [facility]; Protocol Stop: 05/12/20 11:29 Last Titration: 05/09/20 13:01 Dose: 50 mcg/kg/min, 16.1 mls/hr Documented by: [id number] Titration: 05/09/20 12:51 Dose: 45 mcg/kg/min, 14.5 mls/hr Documented by: [id number] Titration: 05/09/20 12:21 Dose: 40 mcg/kg/min, 12.9 mls/hr Documented by: [id number] Titration: 05/09/20 12:16 Dose: 35 mcg/kg/min, 11.3 mls/hr Documented by: [id number] Titration: 05/09/20 12:06 Dose: 30 mcg/kg/min, 9.7 mls/hr Documented by: [id number] Titration: 05/09/20 11:53 Dose: 25 mcg/kg/min, 8.1 mls/hr Documented by: [id number] Admin: 05/09/20 11:43 Dose: 20 mcg/kg/min, 6.4 mls/hr Documented by: [id number] Cosigned by: [id number] Sodium Chloride (Nss 1000ml) 1,000 mls @ 999 mls/hr IV .Q1H1M ONE Stop: 05/09/20 13:59 Last Admin: 05/09/20 13:01 Dose: 999 mls/hr Documented by: [id number] Propofol (Propofol Bolus From Bag) 20 mg IV Q5M PRN PRN Reason: Sedation Stop: 05/12/20 11:29 Last Admin: 05/09/20 13:11 Dose: 20 mg Documented by: [id number] Cosigned by: [id number] Admin: 05/09/20 12:51 Dose: 20 mg Documented by: [id number] Cosigned by: [id number] Admin: 05/09/20 12:34 Dose: 20 mg Documented by: [id number] Cosigned by: [id number] Admin: 05/09/20 12:21 Dose: 20 mg Documented by: [id number] Cosigned by: [id number] Admin: 05/09/20 12:15 Dose: 20 mg Documented by: [id number] Cosigned by: [id number] Admin: 05/09/20 12:06 Dose: 20 mg Documented by: [id number] Cosigned by: [id number] Admin: 05/09/20 11:55 Dose: 20 mg Documented by: [id number] Cosigned by: [id number] Admin: 05/09/20 11:49 Dose: 20 mg Documented by: [id number] Cosigned by: [id number] Discontinued Medications Albuterol (Albut/Ipratrop 3mg/0.5mg Neb 3 Ml Vial) 12 ml NEB ONE ONE Stop: 05/09/20 07:57 Last Admin: 05/09/20 08:13 Dose: 12 ml Documented by: [id number] Dexamethasone (Dexamethasone Sod Inj 10 Mg/Ml Vial) 10 mg IV NOW ONE Stop: 05/09/20 07:57 Last Admin: 05/09/20 08:14 Dose: 10 mg Documented by: [id number] Etomidate (Etomidate 2 Mg/Ml 20 Ml Vial) 16 mg IV NOW ONE Stop: 05/09/20 11:29 Last Admin: 05/09/20 11:44 Dose: 16 mg Documented by: [id number] Sodium Chloride (Nss 1000ml) 1,000 mls @ 999 mls/hr IV .Q1H1M LINDA Stop: 05/09/20 09:00 Last Infusion: 05/09/20 09:17 Dose: 0 mls/hr Documented by: [id number] Admin: 05/09/20 08:16 Dose: 999 mls/hr Documented by: [id number] Piperacillin Sod/Tazobactam Sod (Zosyn) 4.5 gm in 120 mls @ 240 mls/hr IV NOW ONE Stop: 05/09/20 08:25 Last Infusion: 05/09/20 09:00 Dose: 0 mls/hr Documented by: [id number] Admin: 05/09/20 08:13 Dose: 240 mls/hr Documented by: [id number] Vancomycin HCl 1,250 mg/ (Sodium Chloride) 275 mls @ 200 mls/hr IV NOW STA Stop: 05/09/20 11:58 Last Infusion: 05/09/20 13:09 Dose: 0 mls/hr Documented by: [id number] Admin: 05/09/20 11:13 Dose: 200 mls/hr Documented by: [id number] Sodium Chloride (Nss 1000ml) 1,000 mls @ 999 mls/hr IV .Q1H1M ONE Stop: 05/09/20 12:06 Last Infusion: 05/09/20 12:17 Dose: 0 mls/hr Documented by: [id number] Admin: 05/09/20 11:13 Dose: 999 mls/hr Documented by: [id number] Sodium Chloride (Nss) 500 mls @ 999 mls/hr IV .Q31M LINDA Stop: 05/09/20 13:15 Last Infusion: 05/09/20 13:08 Dose: 0 mls/hr Documented by: [id number] Admin: 05/09/20 12:40 Dose: 999 mls/hr Documented by: [id number] Ioversol (Optiray 320 125ml) 120 ml IV ONCE ONE Stop: 05/09/20 10:19 Last Admin: 05/09/20 10:18 Dose: 120 ml Documented by: [id number] Midazolam HCl (Midazolam Hcl 5 Mg/Ml 1 Ml Vial) 2 mg IV NOW STA Stop: 05/09/20 10:27 Last Admin: 05/09/20 10:45 Dose: 2 mg Documented by: [id number] Midazolam HCl (Midazolam Hcl 1 Mg/Ml 2ml Vial) Confirm Administered Dose 2 mg .ROUTE .STK-MED ONE Stop: 05/09/20 10:27 Last Admin: 05/09/20 10:45 Dose: Not Given Documented by: [id number] Midazolam HCl (Midazolam Hcl 5 Mg/Ml 1 Ml Vial) 2 mg IV NOW STA Stop: 05/09/20 10:38 Last Admin: 05/09/20 10:46 Dose: Not Given Documented by: [id number] Midazolam HCl (Midazolam Hcl 1 Mg/Ml 2ml Vial) Confirm Administered Dose 2 mg .ROUTE .STK-MED ONE Stop: 05/09/20 10:39 Last Admin: 05/09/20 10:46 Dose: Not Given Documented by: [id number] Miscellaneous (Rapid Sequence Induction Bag) Confirm Administered Dose 1 ea .ROUTE .STK-MED ONE Stop: 05/09/20 11:08 Last Admin: 05/09/20 11:44 Dose: 1 ea Documented by: [id number] Miscellaneous (Stat Iv Infusion Titration Per Protocol) 1 ea N/A NOW STA Stop: 05/09/20 11:31 Last Admin: 05/09/20 11:43 Dose: 1 ea Documented by: [id number] Propofol (Propofol Iv Emulsion 10 Mg/Ml 100 Ml Vial) Confirm Administered Dose 1,000 mg IV .STK-MED ONE Stop: 05/09/20 11:25 Last Admin: 05/09/20 11:44 Dose: Not Given Documented by: [id number] Succinylcholine Chloride (Succinylcholine Chloride 20 Mg/Ml 10 Ml Vial) 80 mg IV NOW ONE Stop: 05/09/20 11:30 Last Admin: 05/09/20 11:44 Dose: 80 mg Documented by: [id number] Imaging Data Radiologist's Impression: Patient: ZE BO Admit Date: 05/09/20 MR#: [id number] Address1: [address] [facility] Acct ID:[id number] Address2: [address] Date: 1960 [facility] Zip: [place] [address] Age: 60 Location: ED Sex: M Room/Bed: Att Phy: Diagnosis: ILLNESS Neva Phy: Chris Diaz DO Service Date: 05/09/20 [facility] Phy: Interpreting Phy: Gurinder White MD Admit Phy: Ordering Phy: Tone Marshall DO cc: ~ XR chest 1V portable HISTORY: SEPSIS COMPARISON: Chest and right rib series 04/05/2020. FINDINGS: No pneumothorax. No pleural effusions. The heart is normal in size. The lungs are hyperexpanded with advanced emphysematous changes. This remains unchanged. There are old, healed right-sided rib fractures. Progressive interstitial thickening within the right lung with a few patchy hazy airspace opacities. This could represent a pneumonia or less likely asymmetric congestive change. The left lung appears clear. Cervical spinal fusion hardware is noted. IMPRESSION: 1. Progressive interstitial thickening and hazy patchy airspace opacities within the right lung. This may represent a pneumonia or less likely asymmetric congestive change. 2. Advanced emphysema. ACT 112: Negative or not required by law. Electronically signed by: Gurinder White M.D. 05/09/2020 9:07 AM Dictated: 05/09/20905 Transcribed: 05/09/20905 Patient: ZE BO Admit Date: 05/09/20 MR#: [id number] Address1: [address] [facility] Acct ID:[id number] Address2: [address] Date: 1960 [facility] Zip: [place] [address] Age: 60 Location: ED Sex: M Room/Bed: Att Phy: Diagnosis: ILLNESS Neva Phy: Chris Diaz DO Service Date: 05/09/20 [facility] Phy: Interpreting Phy: Gurinder White MD Admit Phy: Ordering Phy: Tone Marshall DO cc: ~ CHEST CTA for PULMONARY ARTERIES CT DOSE: HISTORY: Shortness of breath. TECHNIQUE: Multiaxial CT images of the chest were performed following the intravenous administration of contrast to evaluate the pulmonary arteries. Maximal intensity projection images were also obtained. A dose lowering technique was utilized adhering to the principles of ALARA. COMPARISON STUDY: Chest CTA 11/27/2019. FINDINGS: Mild anterior wedging within a few of the mid thoracic spine vertebral bodies. This remains unchanged. Cervical spinal fusion hardware is noted. Old, healed bilateral rib fractures are again noted. Normal caliber thoracic aorta with no evidence for dissection. The heart is normal in size. No pleural or pericardial effusions. Right lower lobe subsegmental pulmonary arteries are nondiagnostic due to the motion artifact. Otherwise, no filling defects within the remaining pulmonary arteries to suggest pulmonary embolus. No mediastinal lymphadenopathy. A few mildly enlarged right hilar lymph nodes measuring up to 11 mm in short axis diameter. This may be reactive. This is new from the prior study. Limited views of the upper abdomen demonstrate a normal liver, spleen, and adrenal glands. Retrograde opacification of the hepatic veins is noted. Normal esophagus. Advanced bullous emphysema is again noted. A few scattered subcentimeter pulmonary nodules are again noted. These are not simply changed. Dominant nodule within the left upper lobe measures 6 mm. Partial opacification of the bilateral lower lobe segmental and subsegmental bronchi, right greater than left. There are associated patchy areas consolidation within the bilateral lower lobes posteriorly, right greater than left. This is consistent with a pneumonia and favors aspiration. IMPRESSION: 1. No evidence for pulmonary embolus. 2. Partial opacification of the bilateral lower lobe segmental and subsegmental bronchi, right greater than left. There are associated small patchy areas con solidation within the bilateral lower lobes posteriorly, right greater than left. This is consistent with a pneumonia and favors aspiration. 3. Stable subcentimeter pulmonary nodules with the largest in the left upper lobe measuring 6 mm. Refer to the chart below for recommended follow-up. 4. Advanced emphysema. 5. A few mildly enlarged right hilar lymph nodes. This may be reactive to the suspected pneumonia. This also bears watching on future examinations. Please refer to below summary of Fleischner criteria recommendations for follow- up of incidental CT nodules (Joselo Cole, Guidelines for management of small pulmonary nodules detected on CT scans: A statement from the Fleischner Society, Radiology 237: [phone].) SOLID NODULES Solitary nodule size: <6 mm * Low risk patients: no follow-up needed * high risk patients: optional CT at 12 months Solitary nodule size: 6-8 mm * Low risk patients: follow-up at 6-12 months, then consider further follow-up at 18-24 months * high risk patients: initial follow-up CT at 6-12 months and then at 18-24 months if no change Solitary nodule size: >8 mm * either low or high risk patients - consider follow-up CT at 3 months, and/or CT-PET, and/or biopsy Multiple nodules size: <6 mm * Low risk patients: no routine follow-up * high risk patients: optional CT at 12 months Multiple nodules size: 6-8 mm * Low risk patients: follow-up at 3-6 months, then consider further follow-up at 18-24 months * high risk patients: follow-up at 3-6 months, then at 18-24 months if no change Multiple nodules size: >8 mm * Low risk patients: follow-up at 3-6 months, then consider further follow-up at 18-24 months * high risk patients: follow-up at 3-6 months, then at 18-24 months if no change Note: newly detected indeterminate nodule in persons 35 years of age or older. * Low risk patients: minimal or absent history of smoking and/or other known risk factors * high risk patients: history of smoking or of other known risk factors (e.g. first degree relative with lung cancer, or exposure to asbestos, radon, uranium) * if a nodule up to 8 mm is partly solid or is ground glass further follow-up is required after 24 months to exclude possible slow growing adenocarcinoma (DEISI) SUBSOLID NODULES Solitary pure ground-glass nodule * nodule size <6 mm - no CT follow-up required * nodule size >=6 mm - follow-up CT at 6-12 months, then every 2 years until 5 years Solitary part-solid nodule * nodule size <6 mm - no CT follow-up required * nodule size >=6 mm - follow-up CT at 3-6 months. If unchanged, and solid component remains <6 mm, then annual follow-up for 5 years Multiple subsolid nodules * nodule size <6 mm - follow-up CT at 3-6 months, consider further follow-up at 2 and 4 years if stable * nodule size >=6 mm - follow-up CT at 3-6 months, subsequent management based on the most suspicious nodule(s) ACT 112: Negative or not required by law. Electronically signed by: Gurinder Wihte M.D. 05/09/2020 11:13 AM Dictated: 05/09/204 Transcribed: 05/09/201103 Patient: ZE BO Admit Date: 05/09/20 MR#: [id number] Address[address]: [address] [facility] Acct ID:[id number] Address2: [address] Date: 1960 [facility] Zip: [place] [address] Age: 60 Location: ED Sex: M Room/Bed: Att Phy: Diagnosis: ILLNESS Neva Phy: Chris Diaz DO Service Date: 05/09/20 Fam Phy: Interpreting Phy: Gurinder White MD Admit Phy: Ordering Phy: Tone Marshall DO cc: ~ HEAD CT NONCONTRAST CT DOSE: 3623.16 mGy.cm HISTORY: Altered mental status. TECHNIQUE: Multiaxial CT images of the head were performed without the use of intravenous contrast. Automated exposure control was utilized for this study. A dose lowering technique was utilized adhering to the principles of ALARA. Comparison: Head CT 11/27/2019. Findings: The paranasal sinuses and mastoid air cells are clear. The calvarium and skull base are intact. The ventricles and sulci are within normal limits. There is no mass, hematoma, midline shift, or acute infarct. Motion artifact. Impression: Motion artifact. No definite acute intracranial abnormality. ACT 112: Negative or not required by law. Electronically signed by: Gurinder White M.D. 05/09/2020 11:16 AM Dictated: 05/09/20 1114 Transcribed: 05/09/201113 Patient: ZE BO Admit Date: 05/09/20 MR#: [id number] Address[address]: [address] [facility] Acct ID:[id number] Address2: [address] Date: 1960 [facility] Zip: [place] [address] Age: 60 Location: ED Sex: M Room/Bed: Att Phy: Diagnosis: ILLNESS Neva Phy: Chris Diaz DO Service Date: 05/09/20 [facility] Phy: Interpreting Phy: Gurinder White MD Admit Phy: Ordering Phy: Tone Marshall DO cc: ~ XR chest 1V portable HISTORY: intubation COMPARISON: Chest 05/09/2020. FINDINGS: The endotracheal tube terminates 7 cm from the danny. This should be advanced by approximately 3 to 4 cm. No pneumothorax. Old, healed bilateral rib fractures. Advanced emphysema. The heart is normal in size. Cervical spinal fusion hardware is noted. Patchy right mid to lower lung zone airspace opacities persist and are consistent with a pneumonia. IMPRESSION: 1. Endotracheal tube terminates 7 cm from the danny. This should be advanced by approximately 3 to 4 cm. 2. Right mid to lower lung zone airspace opacities persist. ACT 112: Negative or not required by law. Electronically signed by: Gurinder White M.D. 05/09/2020 12:06 PM Dictated: 05/09/20 1205 Transcribed: 05/09/20 1205 Blood Pressure Blood Pressure Findings: Normal blood pressure Discharge Plan Visit Data Chief Complaint: Shortness of Breath/Dyspnea ED Provider: Tone Marshall Discharge Problem: Acute respiratory failure, Acute respiratory acidosis, Benzodiazepine withdrawal, Acute alteration in mental status, Pneumonia Patient Disposition: Being Evaluated by Hospitalist Condition: Good Discharge Instructions Interventions: ED Discharge Assessment Last Done: 05/09/20 13:20
[2020-05-09 08:43] LABS: Base Excess VBG 9.1 mEq/L; Oxygen Saturation VBG 69.3 %; pH VBG 7.27 (7.36-7.41)
[2020-05-09 08:49] LABS: INR 1.1 (0.9-1.1); Partial Thromboplastin Ratio 0.9; Prothrombin Time 11.8 Seconds (9.0-12.0)
[2020-05-09 08:55] LABS: Albumin Level 3.3 gm/dl (3.4-5.0); BUN Creatinine Ratio 35.4 (10-20); Calcium 10.3 mg/dl (8.5-10.1); Creatinine Clr Calc Pharmacy 54.6 ml/min; D Dimer 2590 ug/L FEU (0-500); Est GFR (African American) 85.4; Est GFR (Non-African American) 73.7; Magnesium 2.5 mg/dl (1.8-2.4); Potassium 3.7 mmol/L (3.5-5.1)
[2020-05-09 08:58] LABS: Hematocrit (blood only) 45.2 % (42-52); Hemoglobin 14.7 g/dL (14.0-18.0); Mean Corpuscular Hemoglobin 30.2 pg (25-34); Mean Corpuscular Hgb Conc 32.5 g/dL (32-36); Mean Platelet Volume 10.8 fL (7.4-10.4); Platelet Count 451 K/uL (130-400); RDW Standard Deviation 43.9 fL (36.4-46.3); Red Blood Count 4.86 M/uL (4.7-6.1); White Blood Count 32.32 K/uL (4.8-10.8)
[2020-05-09 08:58] LABS: Appearance Urine Clear (Clear); Bacteria Urine Automated Negative (Negative); Blood Urine 2+ (Negative); Color Urine Dark Yellow; Epithelial Cell Urine Auto 20-30 /lpf (0-5); Glucose Urine UA Negative (Negative); Ketones Urine Negative (Negative); Leukocyte Esterase Urine Negative (Negative); Nitrite Urine Negative (Negative); Protein Urine 1+ (Negative); Specific Gravity Urine 1.026 (1.000-1.030); Urobilinogen Urine Negative (Negative)
[2020-05-09 09:09] LABS: Bilirubin Urine Negative (Negative); Ictotest Urine Negative (Negative)
[2020-05-09 09:09] LABS: Albumin Globulin Ratio 0.6 (0.9-2); Bilirubin,Total 0.6 mg/dl (0.2-1); Globulin 5.4 gm/dl (2.5-4.0); Total Protein 8.7 gm/dl (6.4-8.2); Troponin I 0.046 ng/ml (0-0.045)
--- NOTE | 2020-05-09 09:09 | XRay Report ---
XR chest 1V portable HISTORY: SEPSIS COMPARISON: Chest and right rib series 04/05/2020. FINDINGS: No pneumothorax. No pleural effusions. The heart is normal in size. The lungs are hyperexpa nded with advanced emphysematous changes. This remains unchanged. There are old, healed right-sided r ib fractures. Progressive interstitial thickening within the right lung with a few patchy hazy airspa ce opacities. This could represent a pneumonia or less likely asymmetric congestive change. The left lung appears clear. Cervical spinal fusion hardware is noted. IMPRESSION: 1. Progressive interstitial thickening and hazy patchy airspace opacities within the right lung. This may represent a pneumonia or less likely asymmetric congestive change. 2. Advanced emphysema. ACT 112: Negative or not required by law. Electronically signed by: Gurinder White M.D. 05/09/2020 9:07 AM
[2020-05-09 09:11] LABS: Basophils # (auto) 0.03 K/uL (0-0.2); Basophils % (auto) 0.1 %; Immature Granulocytes # (auto) 0.15 K/uL (0.00-0.02); Immature Granulocytes % (auto) 0.5 %; Lymphocytes # (auto) 1.16 K/uL (1.2-3.4); Lymphocytes % (auto) 3.6 %; Monocytes # (auto) 1.71 K/uL (0.11-0.59); Monocytes % (auto) 5.3 %; Neutrophils # (auto) 29.27 K/uL (1.4-6.5); Neutrophils % (auto) 90.5 %
[2020-05-09 09:12] LABS: Acetaminophen < 2 ug/ml (10-30)
[2020-05-09 09:13] LABS: Salicylate < 1.7 mg/dl (2.8-20)
[2020-05-09 09:25] LABS: Cast Urine Automated >30 /lpf (0-5)
[2020-05-09 09:45] LABS: Adenovirus PCR Not Detected (NotDetected); Bordetella parapertussis PCR Not Detected (NotDetected); Bordetella pertussis PCR Not Detected (NotDetected); Chlamydia pneumoniae PCR Not Detected (NotDetected); Coronavirus 229E PCR Not Detected (NotDetected); Coronavirus CoV-2 (COVID19)PCR Not Detected (NotDetected); Coronavirus HKU1 PCR Not Detected (NotDetected); Coronavirus NL63 PCR Not Detected (NotDetected); Coronavirus OC43PCR Not Detected (NotDetected); Human Metapneumovirus PCR Not Detected (NotDetected); Influenza A PCR Not Detected (NotDetected); Influenza B PCR Not Detected (NotDetected); Mycoplasma pneumoniae PCR Not Detected (NotDetected); Parainfluenza Virus 1 PCR Not Detected (NotDetected); Parainfluenza Virus 2 PCR Not Detected (NotDetected); Parainfluenza Virus 3 PCR Not Detected (NotDetected); Parainfluenza Virus 4 PCR Not Detected (NotDetected); Respiratory Syncytial VirusPCR Not Detected (NotDetected); Rhinovirus/Enterovirus PCR Not Detected (NotDetected)
[2020-05-09] MEDS ORDERED: OPTIRAY 320 125ml IV ONE (10:18)
[2020-05-09] MEDS ORDERED: MIDAZOLAM HCL 1 MG/ML 2ML VIAL ONE ×2 (10:26→10:38)
[2020-05-09] MEDS ORDERED: MIDAZOLAM HCL 5 MG/ML 1 ML VIAL IV STA ×2 (10:26→10:37)
[2020-05-09] MEDS ORDERED: VANCOMYCIN HCL 1,250 MG in SODIUM CHLORIDE 0.9% 250 ML IV STA (10:36)
[2020-05-09 10:50] LABS: Amphetamines+Metham, Urine Neg (Neg); Barbiturates, Urine Neg (Neg); Benzodiazepine, Urine Pos (Neg); Cocaine, Urine Neg (Neg); MDMA (Ecstacy), Urine Neg (Neg); Methadone, Urine Neg (Neg); Opiate, Urine Neg (Neg); Phencyclidine, Urine Neg (Neg)
[2020-05-09] MEDS ORDERED: SODIUM CHLORIDE 0.9% 1000ML 1,000 ML IV ONE ×2 (11:06→12:59)
[2020-05-09] MEDS ORDERED: RAPID SEQUENCE INDUCTION BAG ONE (11:07)
--- NOTE | 2020-05-09 11:14 | CT Scan Report ---
CHEST CTA for PULMONARY ARTERIES CT DOSE: HISTORY: Shortness of breath. TECHNIQUE: Multiaxial CT images of the chest were performed following the intravenous administration of contrast to evaluate the pulmonary arteries. Maximal intensity projection images were also obtaine d. A dose lowering technique was utilized adhering to the principles of ALARA. COMPARISON STUDY: Chest CTA 11/27/2019. FINDINGS: Mild anterior wedging within a few of the mid thoracic spine vertebral bodies. This remains unchanged. Cervical spinal fusion hardware is noted. Old, healed bilateral rib fractures are again n oted. Normal caliber thoracic aorta with no evidence for dissection. The heart is normal in size. No pleural or pericardial effusions. Right lower lobe subsegmental pulmonary arteries are nondiagnostic due to the motion artifact. Otherwise, no filling defects within the remaining pulmonary arteries to suggest pulmonary embolus. No mediastinal lymphadenopathy. A few mildly enlarged right hilar lymph no lonnie measuring up to 11 mm in short axis diameter. This may be reactive. This is new from the prior st udy. Limited views of the upper abdomen demonstrate a normal liver, spleen, and adrenal glands. Retro grade opacification of the hepatic veins is noted. Normal esophagus. Advanced bullous emphysema is ag ain noted. A few scattered subcentimeter pulmonary nodules are again noted. These are not simply ly ged. Dominant nodule within the left upper lobe measures 6 mm. Partial opacification of the bilateral lower lobe segmental and subsegmental bronchi, right greater than left. There are associated patchy areas consolidation within the bilateral lower lobes posteriorly, right greater than left. This is co nsistent with a pneumonia and favors aspiration. IMPRESSION: 1. No evidence for pulmonary embolus. 2. Partial opacification of the bilateral lower lobe segmental and subsegmental bronchi, right greate r than left. There are associated small patchy areas consolidation within the bilateral lower lobes p osteriorly, right greater than left. This is consistent with a pneumonia and favors aspiration. 3. Stable subcentimeter pulmonary nodules with the largest in the left upper lobe measuring 6 mm. Ref er to the chart below for recommended follow-up. 4. Advanced emphysema. 5. A few mildly enlarged right hilar lymph nodes. This may be reactive to the suspected pneumonia. Th is also bears watching on future examinations. Please refer to below summary of Fleischner criteria recommendations for follow-up of incidental CT n odules Maria LuisaH Douglas, Guidelines for management of small pulmonary nodules detected on CT scans: A darnell pinedo from the Fleischner Society, Radiology 237: [phone].) SOLID NODULES Solitary nodule size: <6 mm * Low risk patients: no follow-up needed * high risk patients: optional CT at 12 months Solitary nodule size: 6-8 mm * Low risk patients: follow-up at 6-12 months, then consider further follow-up at 18-24 months * high risk patients: initial follow-up CT at 6-12 months and then at 18-24 months if no change Solitary nodule size: >8 mm * either low or high risk patients - consider follow-up CT at 3 months, and/or CT-PET, and/or biopsy Multiple nodules size: <6 mm * Low risk patients: no routine follow-up * high risk patients: optional CT at 12 months Multiple nodules size: 6-8 mm * Low risk patients: follow-up at 3-6 months, then consider further follow-up at 18-24 months * high risk patients: follow-up at 3-6 months, then at 18-24 months if no change Multiple nodules size: >8 mm * Low risk patients: follow-up at 3-6 months, then consider further follow-up at 18-24 months * high risk patients: follow-up at 3-6 months, then at 18-24 months if no change Note: newly detected indeterminate nodule in persons 35 years of age or older. * Low risk patients: minimal or absent history of smoking and/or other known risk factors * high risk patients: history of smoking or of other known risk factors (e.g. first degree relative with lung cancer, or exposure to asbestos, radon, uranium) * if a nodule up to 8 mm is partly solid or is ground glass further follow-up is required after 24 m onths to exclude possible slow growing adenocarcinoma (DEISI) SUBSOLID NODULES Solitary pure ground-glass nodule * nodule size <6 mm - no CT follow-up required * nodule size >=6 mm - follow-up CT at 6-12 months, then every 2 years until 5 years Solitary part-solid nodule * nodule size <6 mm - no CT follow-up required * nodule size >=6 mm - follow-up CT at 3-6 months. If unchanged, and solid component remains <6 mm, then annual follow-up for 5 years Multiple subsolid nodules * nodule size <6 mm - follow-up CT at 3-6 months, consider further follow-up at 2 and 4 years if sta ble * nodule size >=6 mm - follow-up CT at 3-6 months, subsequent management based on the most suspiciou s nodule(s) ACT 112: Negative or not required by law. Electronically signed by: Gurinder White M.D. 05/09/2020 11:13 AM
--- NOTE | 2020-05-09 11:18 | CT Scan Report ---
HEAD CT NONCONTRAST CT DOSE: 3623.16 mGy.cm HISTORY: Altered mental status. TECHNIQUE: Multiaxial CT images of the head were performed without the use of intravenous contrast. A utomated exposure control was utilized for this study. A dose lowering technique was utilized adheri ng to the principles of ALARA. Comparison: Head CT 11/27/2019. Findings: The paranasal sinuses and mastoid air cells are clear. The calvarium and skull base are int act. The ventricles and sulci are within normal limits. There is no mass, hematoma, midline shift, or acute infarct. Motion artifact. Impression: Motion artifact. No definite acute intracranial abnormality. ACT 112: Negative or not required by law. Electronically signed by: Gurinder White M.D. 05/09/2020 11:16 AM
[2020-05-09] MEDS ORDERED: PROPOFOL IV EMULSION 10 MG/ML 100 ML VIAL IV ONE (11:24)
[2020-05-09] MEDS ORDERED: ETOMIDATE 2 MG/ML 20 ML VIAL IV ONE ×2 (11:28→17:59)
[2020-05-09] MEDS ORDERED: SUCCINYLCHOLINE CHLORIDE 20 MG/ML 10 ML VIAL IV ONE ×2 (11:29→17:59)
[2020-05-09] MEDS ORDERED: STAT IV Infusion **Titration per Protocol STA ×2 (11:30→19:08)
--- NOTE | 2020-05-09 11:38 | History & Physical Report ---
Date of Service May 09, 2020 Assessment & Plan (1) Acute and chronic respiratory failure: Acute on chronic respiratory failure with hypoxia, hypercapnia Respiratory acidosis Multifocal pneumonia Severe Sepsis Advanced COPD ? Compliance --CTA:No evidence for pulmonary embolus. Partial opacification of the bilateral lower lobe segmental and subsegmental bronchi, right greater than left. There are associated small patchy areas consolidation within the bilateral lower lobes posteriorly, right greater than left. This is consistent with a pneumonia and favors aspiration. Stable subcentimeter pulmonary nodules with the largest in the left upper lobe measuring 6 mm. Refer to the chart below for recommended follow-up. Advanced emphysema. A few mildly enlarged right hilar lymph nodes. This may be reactive to the suspected pneumonia. This also bears watching on future examinations. -Currently intubated --Freight Claim Investigator consulted -Start on broad-spectrum antibiotics--vancomycin, Zosyn, doxycycline -IV fluids -Trend lactate levels -Continue duo nebs -Continue oxygen support -Blood cultures obtained -Normal procalcitonin -Consider steroids if needed -Lactate levels normalized with IV fluids Elevated D-dimer CTA no evidence of PE Check venous Dopplers Elevated troponin Likely type II ID secondary to hypoxia, sepsis Also noted chronic troponin elevation Trend cardiac enzymes Repeat EKG Acute metabolic encephalopathy CT head showed no acute abnormality Hold sedative, psychotic home meds Urine tox positive for benzodiazepines Monitor for withdrawal Ongoing tobacco use disorder Nicotine patch Counseled to quit smoking Bipolar affective disorder Hold home medications Pulmonary nodules Follow-up as outpatient DVT prophylaxis Lovenox SQ CODE STATUS Full code Disposition Admit to ICU History of Present Illness Chief Complaint: Shortness of breath, confusion Primary Care Provider: Chris Diaz DO Patient is a 60-year-old male with history of COPD, chronic respiratory failure with oxygen dependency, ongoing tobacco use disorder, degenerative disc disease, bipolar affective disorder, pulmonary nodules, insomnia and other medical problems presents with history of worsening shortness of breath and confusion. Patient is currently intubated and sedated while in ED. History and review of systems could not be obtained. Most of the history is obtained from ER physician Dr. Marshall and from old records. Patient was noted to be in severe respiratory distress and was found to be confused by the family. Patient was having difficulty breathing since overnight and was found to be off oxygen this morning. Family tried to place patient CPAP back but as patient was obtunded he kept pushing away the curettement and so the family called 911 for further assistance. Patient was found to be saturating in the 70s. He was placed on BiPAP and was sent to ED. Patient's family also noted him to have decreased activity over the last 3 weeks and was very depressed secondary to his illness. He had very poor oral intake, decreased appetite since 1 week duration. He was not taking his medications appropriately as per the family. Patient complained of headache while in ED. Also family informed nonproductive cough chronically which they attributed to COPD. CT head showed no acute intracranial abno rmality. CTA showed no evidence of PE. Showed findings of multifocal pneumonia, pulmonary nodules and findings suggestive of advanced COPD, right hilar lymphadenopathy. Patient was intubated while in ED and was admitted to ICU for further evaluation. Allergies Allergy/AdvReac Type Severity Reaction Status Date / Time No Known Allergies Allergy Verified 05/09/20 08:46 Home Medications Medication Instructions Recorded Confirmed Type alprazolam [Xanax] 1 mg PO TID 03/20/19 05/09/20 History ipratropium-albuterol 3 ml INHALATION Q4H PRN 03/20/19 05/09/20 History sertraline [Zoloft] 300 mg PO QPM 03/20/19 05/09/20 History tizanidine [Zanaflex] 2 mg PO Q8H PRN 03/20/19 05/09/20 History mirtazapine 15 mg PO HS 11/27/19 05/09/20 History albuterol sulfate [Ventolin HFA] 2 puff INHALATION Q4H PRN 04/05/20 05/09/20 History aspirin [Aspirin Low Dose] 81 mg PO DAILY 04/05/20 05/09/20 History Past Med/Surg History Medical History Anxiety Bipolar disorder Chronic pain COPD (chronic obstructive pulmonary disease) H/O: CVA (cerebrovascular accident) Tobacco use disorder Surgical History History of cervical spinal surgery History of hip surgery Family History Other Heart disease Social History Smoking Status: Former smoker Cigarettes Per Day: 10; Second Hand Exposure: Yes; Hx Alcohol Use: No Hx Substance Use: No Preferred Language: [place] Communication Ability: Effective Yarn Handler Required: No Beliefs That Will Affect Care: None Current Living Situation: Spouse Feels Safe at Home: Yes Assistive Devices: Oxygen - Continuous Review of Systems 2 Review of Systems: Unobtainable due to endotracheal tube Physical Exam Physical Exam: Physical Exam: Vitals signs as noted above General Appearance: Chronically ill appearing, thin, frail, + intubated Head: normocephalic, Atraumatic Eyes: normal inspection, IBETH Neck: supple, Trachea midline Respiratory/Chest: Decreased breath sounds, clear to auscultation, No accessory muscle use Cardiovascular: S1, S2, No murmur Abdomen/GI:Soft, Non tender, Bowel sounds present Extremities/Musculoskelatal:normal inspection, no edema Neurologic/Psych: Intubated, sedated complete neurological exam could not be performed. Skin: normal color, warm, +Multiple tattoos Results & Data Results & Data ([facility]) Vital Signs (Past 12 Hours) Vital Signs Pulse Pulse Resp BP BP Pulse Ox 05/09/20 11:10 86 30 H 91 05/09/20 11:08 85 34 H 119/71 91 05/09/20 11:01 88 33 H 92/71 L 94 05/09/20 11:00 87 30 H 93 05/09/20 10:48 92 H 20 130/77 96 05/09/20 09:47 95 H 24 162/116 H 99 05/09/20 08:31 96 H 34 H 171/122 H 99 05/09/20 08:30 93 H 29 H 99 05/09/20 08:28 93 H 31 H 126/96 99 05/09/20 08:15 88 32 H 98 05/09/20 08:14 101 H 35 H 97 05/09/20 08:00 93 H 29 H 163/111 H 97 05/09/20 07:57 93 H 35 H 99 05/09/20 07:55 124 H 32 H 164/97 H 100 05/09/20 07:49 94 H 40 H 164/97 H 98 Laboratory Results Short CBC 05/09/20 Range/Units 08:11 WBC 32.32 H* (4.8-10.8) K/uL Hgb 14.7 (14.0-18.0) g/dL Hct 45.2 (42-52) % Plt Count 451 H (130-400) K/uL BMP 05/09/20 08:11 Sodium 138 Potassium 3.7 Chloride 92 L Carbon Dioxide 39 H BUN 38 H Creatinine 1.08 Glucose 117 H Calcium 10.3 H Cardiac Enzymes 05/09/20 Range/Units 08:11 Troponin I 0.046 H* (0-0.045) ng/ml Liver Function 05/09/20 Range/Units 08:11 Total Bilirubin 0.6 (0.2-1) mg/dl AST 25 (15-37) U/L ALT 27 (12-78) U/L Alkaline Phosphatase 115 (45-117) U/L Albumin 3.3 L (3.4-5.0) gm/dl Urine 05/09/20 Range/Units 08:40 Urine Color Dark Yellow Urine Appearance Clear (Clear) Urine pH 5.0 (4.5-7.5) Ur Specific Mcintosh 1.026 (1.000-1.030) Urine Protein 1+ H (Negative) Urine Glucose (UA) Negative (Negative) Medications Administered CTA: 1. No evidence for pulmonary embolus. 2. Partial opacification of the bilateral lower lobe segmental and subsegmental bronchi, right greater than left. There are associated small patchy areas consolidation within the bilateral lower lobes posteriorly, right greater than left. This is consistent with a pneumonia and favors aspiration. 3. Stable subcentimeter pulmonary nodules with the largest in the left upper lobe measuring 6 mm. Refer to the chart below for recommended follow-up. 4. Advanced emphysema. 5. A few mildly enlarged right hilar lymph nodes. This may be reactive to the suspected pneumonia. This also bears watching on future examinations. Head CT: No definite acute intracranial abnormality. ECG Additional Comments: EKG: Normal sinus rhythm, nonspecific ST-T wave changes, QTC 492
[2020-05-09] MEDS: propofoL 1,000 MG/100 ML VIAL IV SCH ×3 (11:43→20:36)
[2020-05-09] MEDS: PROPOFOL BOLUS FROM BAG IV PRN ×8 (11:49→13:11)
--- NOTE | 2020-05-09 12:08 | XRay Report ---
XR chest 1V portable HISTORY: intubation COMPARISON: Chest 05/09/2020. FINDINGS: The endotracheal tube terminates 7 cm from the danny. This should be advanced by approxima tely 3 to 4 cm. No pneumothorax. Old, healed bilateral rib fractures. Advanced emphysema. The heart i s normal in size. Cervical spinal fusion hardware is noted. Patchy right mid to lower lung zone airsp vilma opacities persist and are consistent with a pneumonia. IMPRESSION: 1. Endotracheal tube terminates 7 cm from the danny. This should be advanced by approximately 3 to 4 cm. 2. Right mid to lower lung zone airspace opacities persist. ACT 112: Negative or not required by law. Electronically signed by: Gurinder White M.D. 05/09/2020 12:06 PM
--- NOTE | 2020-05-09 12:12 | Critical Care Consultation ---
Date of Consultation May 09, 2020 Assessment & Plan (1) Acute on chronic respiratory failure with hypoxia and hypercapnia: EKG 05/09/2020: Sinus tachycardia, P pulmonale, T wave inversions in lead V3, V4, V5. No ST changes appreciated. QTc 492 CT chest 05/09/2020: Severe centrilobular and paraseptal emphysema appreciated, affecting upper as well as lower lobes, right lower lobe consolidative process appreciated minimal left lower lobe as well, insignificant mediastinal adenopathy. -- VDRF Likely secondary to hypercapnic hypoxic respiratory failure likely secondary to COPD exacerbation Continue with ventilatory support Keep RASS -1 Daily sedation holidays and SBT's Chlorhexidine mouthwash Continue with inhaled bronchodilators, antibiotics Maintain SPO2 between 88 to 92% Patient is not on optimal therapy for his underlying COPD. Needs to be on LABA/LAMA/ICS inhaler along with Roflumilast prior to discharge. --Metabolic encephalopathy Multifactorial Hypercapnia playing a role along with hypoxia --Right lower lobe pneumonia Follow sputum culture Continue with antibiotics Procalcitonin 0.06 Bio fire 05/09/2020 -ve, COVID-19 negative, influenza A/B -ve Patient does have lymphopenia but he has had it in the past as well. CAT scan finding does not go with COVID-19 presentation --Type II PR Likely from demand ischemia Trend troponin --Metabolic alkalosis Likely compensation to chronic hypercapnia Monitor --Urine drug screen positive for benzodiazepine Patient is on Xanax at home Any respiratory depressant are not a good choice for the patient given his severe hypercapnia. --Prolonged QTC Avoid QT prolonging medication --Prophylaxis VTE: Lovenox GI: Pantoprazole Lines: Peripheral Diet: N.p.o. Plan: VBG Follow-up nasal MRSA. Nasal MRSA is negative will discontinue vancomycin Continue with antibiotics. Atypical coverage with doxycycline Follow-up TSH Given there is active wheezing appreciated on physical exam will give steroids 40 mg twice daily. I have personally spent 55 minutes of critical care time in the direct management of this patient. This is a life/limb threatening event. This includes time spent evaluating patient, direct bedside care, chart review, placing orders, interpretation of diagnostic studies, discussion with consultants, patient, and family members, as well as other required patient management activities. This time is exclusive of all separately billable procedures, and teaching time and separate from and in addition to any other critical care service time. Please note the above document was generated using voice recognition software. It may contain grammatical, syntax or spelling errors. (2) COPD (chronic obstructive pulmonary disease): (3) Tobacco use disorder: (4) AMS (altered mental status): (5) Metabolic encephalopathy: History of Present Illness History of Present Illness 60-year-old male with past medical history of severe COPD with emphysema on home O2, active smoker, bipolar affective disorder presented to the hospital with complaints of worsening shortness of breath as well as confusion. Trial of BiPAP was given in the ED but he was still very tachypneic and was eventually intubated in the ED. COVID-19 in the ED was negative. CTA of the chest did not show any signs of PE. CT head negative. Right lower lobe opacity/consolidation appreciated. At the time of examination patient was on vent saturating 100% on FiO2 40, respirate 18, tidal volume of 400. Patient was on propofol 50. Fentanyl was started so that we can titrate down propofol. Patient was RASS -2. Moving all extremities. Nodding his head to certain questions. Patient has history of intubation in the past as well last one being in November 2019. Allergies Allergy/AdvReac Type Severity Reaction Status Date / Time No Known Allergies Allergy Verified 05/09/20 08:46 Home Medications Medication Instructions Recorded Confirmed Type alprazolam [Xanax] 1 mg PO TID 03/20/19 05/09/20 History ipratropium-albuterol 3 ml INHALATION Q4H PRN 03/20/19 05/09/20 History sertraline [Zoloft] 300 mg PO QPM 03/20/19 05/09/20 History tizanidine [Zanaflex] 2 mg PO Q8H PRN 03/20/19 05/09/20 History mirtazapine 15 mg PO HS 11/27/19 05/09/20 History albuterol sulfate [Ventolin HFA] 2 puff INHALATION Q4H PRN 04/05/20 05/09/20 History aspirin [Aspirin Low Dose] 81 mg PO DAILY 04/05/20 05/09/20 History Patient History Medical History (Updated 05/09/20 @ 15:29 by Leonard Clinton MD) Anxiety Bipolar disorder Chronic pain COPD (chronic obstructive pulmonary disease) H/O: CVA (cerebrovascular accident) Tobacco use disorder Surgical History History of cervical spinal surgery History of hip surgery Family History Other Heart disease Social History Smoking Status: Former smoker Cigarettes Per Day: 10; Second Hand Exposure: Yes; Hx Alcohol Use: No Hx Substance Use: No Preferred Language: Bangladeshi Communication Ability: Effective Bird Tender Required: No Beliefs That Will Affect Care: None Current Living Situation: Spouse Feels Safe at Home: Yes Assistive Devices: Oxygen - Continuous Review of Systems Review of Systems: Unobtainable due to cognitive status and Unobtainable due to endotracheal tube Physical Exam Physical Exam: Constitutional: No acute distress, cachectic HEENT: PERRLA, positive ETT Respiratory system: Decreased air entry bilaterally, no rhonchi, positive wheeze bilaterally, positive crackles right lower lobe CVS: S1-S2 positive, no murmurs or gallops, distant heart sounds Abdomen: Soft, nontender, nondistended, positive bowel sounds x4 Extremities: +2 pulses bilaterally radialis/ dorsalis pedis, no cyanosis, no edema, tattoos all over the body Neuro: Positive gag, positive corneal, positive pupillary, moving all extremities Psych: Unable to assess G/U: Positive Wagoner Skin: no rashes, warm and dry Lymphatic: no cervical or axillary lymphadenopathy Results & Data Results & Data ([facility]) Vital Signs (Past 12 Hours) Vital Signs Pulse Pulse Resp BP BP Pulse Ox 05/09/20 11:50 79 20 100 05/09/20 11:10 86 30 H 91 05/09/20 11:08 85 34 H 119/71 91 05/09/20 11:01 88 33 H 92/71 L 94 05/09/20 11:00 87 30 H 93 05/09/20 10:48 92 H 20 130/77 96 05/09/20 09:47 95 H 24 162/116 H 99 05/09/20 08:31 96 H 34 H 171/122 H 99 05/09/20 08:30 93 H 29 H 99 05/09/20 08:28 93 H 31 H 126/96 99 05/09/20 08:15 88 32 H 98 05/09/20 08:14 101 H 35 H 97 05/09/20 08:00 93 H 29 H 163/111 H 97 05/09/20 07:57 93 H 35 H 99 05/09/20 07:55 124 H 32 H 164/97 H 100 05/09/20 07:49 94 H 40 H 164/97 H 98 05/09/20 08:11 05/09/20 08:11 Coding Level of Care Code Critical Care 1st 30-74 mins Diagnoses Acute on chronic respiratory failure with hypoxia and hypercapnia J96.21; J96.22 COPD (chronic obstructive pulmonary disease) J44.9 COPD type: unspecified COPD Tobacco use disorder F17.200 AMS (altered mental status) R41.82 Metabolic encephalopathy G93.41 Time Spent (min) 55 (1) COPD (chronic obstructive pulmonary disease) COPD type: unspecified COPD Qualified Code(s): J44.9 - Chronic obstructive pulmonary disease, unspecified
[2020-05-09] MEDS ORDERED: SODIUM CHLORIDE 0.9% 500 ML IV SCH (12:45)
[2020-05-09] MEDS ORDERED: CONSULT PHARMACY STA (13:53)
[2020-05-09] MEDS ORDERED: ICU PROTOCOL FOR HYPERGLYCEMIA PRN (14:03)
[2020-05-09] MEDS ORDERED: VANCOMYCIN CONSULT ACTIVE PRN (14:10)
[2020-05-09] MEDS: PIPERACILLIN/TAZOBACTAM 3.375 GM in DEXTROSE 5% 100 ML IV SCH ×2 (14:39→22:36)
[2020-05-09] MEDS: D5W AND 1/2NSS + 20MEQ KCL 20 MEQ/1,000 ML BAG IV SCH (14:39)
[2020-05-09] MEDS: ENOXAPARIN INJ 40 MG/0.4 ML SYR SQ SCH (14:39)
[2020-05-09] MEDS: NICOTINE 21 MG/24 HR TDSY TD SCH (14:40)
[2020-05-09] MEDS: DOXYCYCLINE HYCLATE 100 MG in DEXTROSE 5% 100 ML IV SCH (15:09)
[2020-05-09] MEDS: ALBUT/IPRATROP 3MG/0.5MG NEB 3 ML VIAL NEB SCH ×2 (15:23→19:06)
[2020-05-09] MEDS: methylPREDNISolone 40 MG in SYRINGE 0 ML IV SCH (16:24)
[2020-05-09] MEDS ORDERED: VANCOMYCIN HCL 1,000 MG in SODIUM CHLORIDE 0.9% 250 ML IV SCH (20:00)
[2020-05-09] MEDS: fentaNYL DRIP 1,250 MCG/250 ML BAG IV SCH ×2 (20:18→20:36)
[2020-05-09] MEDS: MIRTAZAPINE TAB 15 MG TAB PO SCH (20:19)
[2020-05-10] MEDS: ALBUT/IPRATROP 3MG/0.5MG NEB 3 ML VIAL NEB SCH ×6 (00:15→20:34)
[2020-05-10] MEDS: DOXYCYCLINE HYCLATE 100 MG in DEXTROSE 5% 100 ML IV SCH ×2 (02:13→14:59)
[2020-05-10] MEDS: propofoL 1,000 MG/100 ML VIAL IV SCH (02:42)
[2020-05-10] MEDS: methylPREDNISolone 40 MG in SYRINGE 0 ML IV SCH ×2 (04:05→15:50)
[2020-05-10 05:05] LABS: iSTAT Allen Test Pass; iSTAT Art Bld Gas pCO2 Correct 61 mmHg (35-46); iSTAT Art Bld Gas pH Corrected 7.368 (7.35-7.45); iSTAT Arterial Blood Gas HCO3 35 meg/L (19-24); iSTAT Arterial Blood Gas pCO2 61 mmHg (35-46); iSTAT Arterial Blood Gas pH 7.37 (7.35-7.45); iSTAT Arterial Blood Gas pO2 66 mmHg (80-95); iSTAT Arterial Blood Gas pO2 C 66; iSTAT Carbon Dioxide 37 mmol/L (24-31); iSTAT FiO2 30 %; iSTAT Hematocrit 30 % (42-52); iSTAT Hemoglobin 10.2 g/dl (14.0-18.0); iSTAT Potassium 3.8 mmol/L (3.3-5.0); iSTAT Site L Radial; iSTAT Sodium 140 mmol/L (135-144)
[2020-05-10] MEDS: fentaNYL DRIP 1,250 MCG/250 ML BAG IV SCH (05:10)
[2020-05-10 06:21] LABS: Basophils # (auto) 0.01 K/uL (0-0.2); Eosinophils # (auto) 0.02 K/uL (0-0.5); Eosinophils % (auto) 0.1 %; Hematocrit (blood only) 33.1 % (42-52); Hemoglobin 10.6 g/dL (14.0-18.0); Immature Granulocytes # (auto) 0.13 K/uL (0.00-0.02); Immature Granulocytes % (auto) 0.6 %; Lymphocytes # (auto) 2.43 K/uL (1.2-3.4); Lymphocytes % (auto) 10.5 %; Mean Corpuscular Hemoglobin 29.8 pg (25-34); Monocytes # (auto) 2.21 K/uL (0.11-0.59); Monocytes % (auto) 9.5 %; Neutrophils # (auto) 18.41 K/uL (1.4-6.5); Neutrophils % (auto) 79.3 %; Platelet Count 287 K/uL (130-400); RDW Coefficient of Variation 13.6 % (11.5-14.5); Red Blood Count 3.56 M/uL (4.7-6.1); White Blood Count 23.21 K/uL (4.8-10.8)
--- NOTE | 2020-05-10 06:34 | Electrocardiogram Report ---
Test Reason : Blood Pressure : / mmHG Vent. Rate : 095 BPM Atrial Rate : 095 BPM P-R Int : 108 ms QRS Dur : 066 ms QT Int : 392 ms P-R-T Axes : 082 081 086 degrees QTc Int : 492 ms Poor data quality, interpretation may be adversely affected Sinus rhythm Nonspecific ST and T wave abnormality When compared with ECG of 05-APR-2020 18:10, Premature ventricular complexes are no longer Present ST now depressed in Inferior leads Nonspecific T wave abnormality now evident in Inferior leads QT has lengthened Confirmed by Arnie Tinajero ([id number]) on 05/10/2020 6:33:53 AM Referred By: REFERRED SELF Confirmed By:Arnie Tinajero
[2020-05-10 07:05] LABS: Albumin Globulin Ratio 0.6 (0.9-2); Albumin Level 2.3 gm/dl (3.4-5.0); BUN Creatinine Ratio 45.8 (10-20); Bilirubin,Total 0.5 mg/dl (0.2-1); Calcium 8.7 mg/dl (8.5-10.1); Creatinine Clr Calc Pharmacy 71.6 ml/min; Globulin 3.6 gm/dl (2.5-4.0); Magnesium 2.2 mg/dl (1.8-2.4); Phosphorus 3.3 mg/dl (2.5-4.9); Potassium 3.7 mmol/L (3.5-5.1); Total Protein 5.9 gm/dl (6.4-8.2)
[2020-05-10] MEDS: PIPERACILLIN/TAZOBACTAM 3.375 GM in DEXTROSE 5% 100 ML IV SCH (08:12)
[2020-05-10] MEDS: NICOTINE 21 MG/24 HR TDSY TD SCH (08:12)
[2020-05-10] MEDS: ASPIRIN 81 MG ECTAB PO SCH (08:13)
[2020-05-10] MEDS: ENOXAPARIN INJ 40 MG/0.4 ML SYR SQ SCH (08:13)
--- NOTE | 2020-05-10 08:13 | Ultrasound Report ---
BILATERAL LOWER EXTREMITY VENOUS DOPPLER HISTORY: Elevated D dimer COMPARISON STUDY: None. FINDINGS: There is normal compressibility, flow, and augmentation within the bilateral lower extremit y deep venous systems. IMPRESSION: No DVT within the right or left lower extremity. ACT 112: Negative or not required by law. Electronically signed by: Gurinder White M.D. 05/10/2020 8:12 AM
--- NOTE | 2020-05-10 09:00 | XRay Report ---
XR chest 1V portable HISTORY: Respiratory failure. COMPARISON: Chest 05/09/2020. FINDINGS: Advanced emphysema. Right lung airspace opacities have slightly improved. No pneumothorax. No pleural effusions. The heart is normal in size. Nasogastric tube terminates below the diaphragm. T he endotracheal tube terminates 5.8 cm from the danny. Cervical spinal fusion hardware is noted. IMPRESSION: 1. Improved aeration within the right lung airspace opacities. 2. The endotracheal tube terminates 5.8 cm and the danny. Nasogastric tube terminates below the diap hragm. 3. Advanced emphysema. ACT 112: Negative or not required by law. Electronically signed by: Gurinder White M.D. 05/10/2020 8:58 AM
--- NOTE | 2020-05-10 10:59 | Critical Care Progress Note ---
Date of Service May 10, 2020 Assessment & Plan (1) Acute on chronic respiratory failure with hypoxia and hypercapnia: EKG 05/09/2020: Sinus tachycardia, P pulmonale, T wave inversions in lead V3, V4, V5. No ST changes appreciated. QTc 492 CT chest 05/09/2020: Severe centrilobular and paraseptal emphysema appreciated, affecting upper as well as lower lobes, right lower lobe consolidative process appreciated minimal left lower lobe as well, insignificant mediastinal adenopathy. -- VDRF Likely secondary to hypercapnic hypoxic respiratory failure likely secondary to COPD exacerbation Continue with ventilatory support Keep RASS -1 Daily sedation holidays and SBT's Chlorhexidine mouthwash Continue with inhaled bronchodilators, antibiotics Maintain SPO2 between 88 to 92% Patient is not on optimal therapy for his underlying COPD. Needs to be on LABA/LAMA/ICS inhaler along with Roflumilast prior to discharge. --S/p metabolic encephalopathy Improved Multifactorial Hypercapnia playing a role along with hypoxia TSH within normal limit --Right lower lobe pneumonia Follow sputum culture Continue with antibiotics Procalcitonin 0.06 Bio fire 05/09/2020 -ve, COVID-19 negative, influenza A/B -ve, nasal MRSA negative Patient does have lymphopenia but he has had it in the past as well. CAT scan finding does not go with COVID-19 presentation --Type II [place] Likely from demand ischemia Trend troponin --Metabolic alkalosis Likely compensation to chronic hypercapnia Monitor --Urine drug screen positive for benzodiazepine Patient is on Xanax at home Any respiratory depressant are not a good choice for the patient given his severe hypercapnia. --Prolonged QTC Avoid QT prolonging medication --Prophylaxis VTE: Lovenox GI: Pantoprazole Lines: Peripheral Diet: N.p.o. Plan: In/out: +3.5 L, urine output 1300 mL AB.37/61/66 on 30% Trial of extubation today to BiPAP. Continue with Solu-Medrol, doxy and Zosyn. Can gradually titrate down Zosyn to Rocephin will be tomorrow. I have personally spent 36 minutes of critical care time in the direct management of this patient. This is a life/limb threatening event. This includes time spent evaluating patient, direct bedside care, chart review, placing orders, interpretation of diagnostic studies, discussion with consultants, patient, and family members, as well as other required patient management activities. This time is exclusive of all separately billable procedures, and teaching time and separate from and in addition to any other critical care service time. Please note the above document was generated using voice recognition software. It may contain grammatical, syntax or spelling errors. (2) COPD (chronic obstructive pulmonary disease): (3) Tobacco use disorder: (4) AMS (altered mental status): (5) Metabolic encephalopathy: Admission and Anticipated Discharge Date Admission Date: May 09, 2020 Subjective Patient seen and examined at bedside. No acute distress, no adverse events overnight. Patient was on pressure support 5/5 getting good tidal volumes at the time of examination. He was not on any sedation. Patient was awake alert oriented. Answering all the questions appropriately. Denies any chest pain, no shortness of breath. Review of Systems Review of Systems: All systems reviewed & are unremarkable except as noted in Subjective Physical Exam Physical Exam: Constitutional: No acute distress, cachectic HEENT: PERRLA, positive ETT Respiratory system: Decreased air entry bilaterally, no rhonchi, positive wheeze bilaterally, positive crackles right lower lobe CVS: S1-S2 positive, no murmurs or gallops, distant heart sounds Abdomen: Soft, nontender, nondistended, positive bowel sounds x4 Extremities: +2 pulses bilaterally radialis/ dorsalis pedis, no cyanosis, no edema, tattoos all over the body Neuro: Positive gag, positive corneal, positive pupillary, moving all extremities Psych: Unable to assess G/U: Positive [place] Skin: no rashes, warm and dry Lymphatic: no cervical or axillary lymphadenopathy Results & Data Results & Data ([facility]) Vital Signs (Past 12 Hours) Vital Signs Temp Pulse Pulse Resp BP Pulse Ox 05/10/20 10:46 69 16 97 05/10/20 10:44 69 16 97 05/10/20 09:30 71 95 05/10/20 09:23 72 111/64 96 05/10/20 09:20 73 96 05/10/20 09:10 75 98 05/10/20 09:00 73 98 05/10/20 08:50 72 96 05/10/20 08:40 73 97 05/10/20 08:30 75 97 05/10/20 08:23 74 96/64 L 95 05/10/20 08:20 76 98 05/10/20 08:10 77 98 05/10/20 08:00 76 98 05/10/20 07:59 78 21 97 05/10/20 07:50 74 99 05/10/20 07:47 73 123/72 97 05/10/20 07:40 71 97 05/10/20 07:30 67 98 05/10/20 07:23 63 105/68 99 05/10/20 07:20 71 100 05/10/20 07:12 67 12 95 05/10/20 07:10 68 95 05/10/20 07:00 68 95 05/10/20 06:50 68 95 05/10/20 06:40 67 95 05/10/20 06:30 69 93 05/10/20 06:24 69 93 05/10/20 06:23 68 130/80 93 05/10/20 05:23 68 108/68 99 05/10/20 05:16 69 14 96 05/10/20 04:23 69 100/57 L 93 05/10/20 04:00 37.0 C 05/10/20 03:44 66 15 94 05/10/20 03:23 68 94/61 L 94 05/10/20 02:50 66 14 94 05/10/20 02:23 68 91/60 L 94 05/10/20 01:22 66 100/54 L 94 05/10/20 00:22 64 93/55 L 95 05/10/20 00:15 64 15 95 05/10/20 00:00 37 C 05/09/20 23:59 64 05/09/20 23:22 66 84/56 L 94 05/10/20 06:10 05/10/20 06:10 Coding Level of Care Code Critical Care 1st 30-74 mins Diagnoses Acute on chronic respiratory failure with hypoxia and hypercapnia J96.21; J96.22 COPD (chronic obstructive pulmonary disease) J44.9 COPD type: unspecified COPD Tobacco use disorder F17.200 AMS (altered mental status) R41.82 Metabolic encephalopathy G93.41 Time Spent (min) 36 (1) COPD (chronic obstructive pulmonary disease) COPD type: unspecified COPD Qualified Code(s): J44.9 - Chronic obstructive pulmonary disease, unspecified
[2020-05-10] MEDS ORDERED: PANTOprazole 40 MG in SYRINGE 0 ML IV SCH (11:00)
[2020-05-10] MEDS: D5W AND 1/2NSS + 20MEQ KCL 20 MEQ/1,000 ML BAG IV SCH (11:14)
[2020-05-10] MEDS: PIPERACILLIN/TAZOBACTAM 4.5 GM in DEXTROSE 5% 100 ML IV SCH ×2 (14:00→21:04)
--- NOTE | 2020-05-10 16:02 | Hospitalist Progress Note ---
Date of Service May 10, 2020 Assessment & Plan (1) Acute and chronic respiratory failure: Pneumonia COPD exacerbation Acute on chronic respiratory failure with hypoxia, hypercapnia Worsening SOB where Pt was intubated on admission CTA chest showed no evidence for pulmonary embolus. Partial opacification of the bilateral lower lobe segmental and subsegmental bronchi, right greater than left. There are associated small patchy areas consolidation within the bilateral lower lobes posteriorly, right greater than left CXR on admission showed progressive interstitial thickening and hazy patchy airspace opacities within the right lung. Bio fire 05/09/2020 -ve, COVID-19 negative, influenza A/B -ve, nasal MRSA negative VBG on admission showed respiratory acidosis with pH 7.27 and pCO2 87 S/P extubation today Received broad spectrum abx with IV Vanco, Zosyn and doxycycline in the ER Vanco was discontinued and continue with IV doxy and Zosyn Continue IV solumedrol and nebulizer treatment Not on any maintenance inhaler for the COPD, will consider to add on discharge a LABA/LAMA/ICS inhaler along with Roflumilast Pharmacy District Manager on board Continue BIPAP for now Continue monitor closely in the ICU Severe Sepsis Mostly due to multifocal pneumonia Elevated Lactate at 2.6 and WBC 32K on admission Continue IV abx with Zosyn and Doxycline Lactate normalized and WBC trending down to 23K Blood cx no growth so far continue monitor CBC Elevated D-dimer CTA no evidence of PE Doppler of LE showed no DVT within the right or left lower extremity. Elevated troponin Hx of Chronic troponin elevation Likely type II [place] secondary to hypoxia, sepsis EKG showed no acute ischemia Troponin on admission 0.046, then normalized Denies any chest pain Continue aspirin Acute metabolic encephalopathy CT head showed no acute abnormality Urine tox positive for benzodiazepines Continue to hold Benzodiazepine Monitor for withdrawal Tobacco use disorder Nicotine patch Counseled to quit smoking Bipolar affective disorder Anxiety disorder Pt has been taking 3 to 4 tabs of Xanax 1mg daily Will resume Xanax 0.5 mg prn for now to prevent any Benzo withdrawal and seizure Will consult psych Pulmonary nodules Will [place] follow-up as outpatient DVT prophylaxis Lovenox SQ CODE STATUS Full code Disposition Continue monitor in the ICU Admission and Anticipated Discharge Date Admission Date: May 09, 2020 Subjective Pt was seen and examined Lying in bed with no distress Pt was extubated this morning He said that his breathing feels a little better today Pt said that sometimes he takes 3 to 4 tabs of Xanax daily Denies any chest pain, palpitation, dizziness and fever Physical Exam Physical Exam: General- No acute distress, frail Head- atraumatic Eyes- PERRL, EOMI, ENT- oropharynx clear Neck- supple, no JVD Lungs- diminished BS Heart- regular rhythm; no murmur Abdomen- normal bowel sounds, soft, nontender Extremities- no calf tenderness Neuro- alert, oriented x 3; PERRL, EOMI; no facial palsy; no dysarthria Skin- warm & dry Results & Data Results & Data ([facility]) Vital Signs (Past 12 Hours) Vital Signs Temp Pulse Pulse Resp BP Pulse Ox 05/10/20 12:23 86 141/86 H 89 L 05/10/20 12:20 81 94 05/10/20 12:10 73 95 05/10/20 12:00 69 93 05/10/20 11:50 70 95 05/10/20 11:40 70 95 05/10/20 11:30 71 96 05/10/20 11:23 73 131/68 96 05/10/20 11:20 74 96 05/10/20 11:10 74 96 05/10/20 11:00 71 97 05/10/20 10:50 68 97 05/10/20 10:46 69 16 97 05/10/20 10:44 69 16 97 05/10/20 10:40 69 97 05/10/20 10:30 72 99 05/10/20 10:23 70 113/70 98 05/10/20 10:20 73 100 05/10/20 10:10 72 99 05/10/20 10:00 70 98 05/10/20 09:50 72 95 05/10/20 09:40 73 98 05/10/20 09:30 71 95 05/10/20 09:23 72 111/64 96 05/10/20 09:20 73 96 05/10/20 09:10 75 98 05/10/20 09:00 73 98 05/10/20 08:50 72 96 05/10/20 08:40 73 97 05/10/20 08:30 75 97 05/10/20 08:23 74 96/64 L 95 05/10/20 08:20 76 98 05/10/20 08:10 77 98 05/10/20 08:00 76 98 05/10/20 07:59 78 21 97 05/10/20 07:50 74 99 05/10/20 07:47 73 123/72 97 05/10/20 07:40 71 97 05/10/20 07:30 67 98 05/10/20 07:23 63 105/68 99 05/10/20 07:20 71 100 05/10/20 07:12 67 12 95 05/10/20 07:10 68 95 05/10/20 07:00 68 95 05/10/20 06:50 68 95 05/10/20 06:40 67 95 05/10/20 06:30 69 93 05/10/20 06:24 69 93 05/10/20 06:23 68 130/80 93 05/10/20 05:23 68 108/68 99 05/10/20 05:16 69 14 96 05/10/20 04:23 69 100/57 L 93 05/10/20 04:00 37.0 C
[2020-05-10 16:26] LABS: 7-Aminoclonaz, Confirm NEGATIVE ng/mL (<25); Hydro-Alp Ur, GC/MS 68 ng/mL (<25); Hydroxyethylflurazepam, Conf NEGATIVE ng/mL (<50); Hydroxymidazolam Ur, GC/MS NEGATIVE ng/mL (<50); Hydroxytriazolam NEGATIVE ng/mL (<50); Lorazepam, Ur GC/MS NEGATIVE ng/mL (<50); Nordiazepam, Confirm NEGATIVE ng/mL (<50); Oxazepam Ur, GC/MS NEGATIVE ng/mL (<50); Temazepam, Confirm NEGATIVE ng/mL (<50)
[2020-05-10] MEDS ORDERED: ALPRAZolam 0.5 MG TABLET PO STA (19:54)
[2020-05-10] MEDS: MIRTAZAPINE TAB 15 MG TAB PO SCH (21:04)
[2020-05-11] MEDS: ALBUT/IPRATROP 3MG/0.5MG NEB 3 ML VIAL NEB SCH ×6 (00:04→19:52)
[2020-05-11] MEDS: methylPREDNISolone 40 MG in SYRINGE 0 ML IV SCH (03:57)
[2020-05-11] MEDS: DOXYCYCLINE HYCLATE 100 MG in DEXTROSE 5% 100 ML IV SCH (03:57)
[2020-05-11 05:10] LABS: Basophils # (auto) 0.01 K/uL (0-0.2); Basophils % (auto) 0.1 %; Eosinophils # (auto) 0.04 K/uL (0-0.5); Eosinophils % (auto) 0.2 %; Hematocrit (blood only) 35.7 % (42-52); Hemoglobin 11.4 g/dL (14.0-18.0); Immature Granulocytes % (auto) 0.6 %; Lymphocytes # (auto) 1.73 K/uL (1.2-3.4); Mean Corpuscular Hemoglobin 29.6 pg (25-34); Mean Corpuscular Hgb Conc 31.9 g/dL (32-36); Mean Corpuscular Volume 92.7 fL (80-100); Mean Platelet Volume 10.3 fL (7.4-10.4); Monocytes # (auto) 0.96 K/uL (0.11-0.59); Monocytes % (auto) 5.5 %; Neutrophils # (auto) 14.51 K/uL (1.4-6.5); Neutrophils % (auto) 83.6 %; Platelet Count 267 K/uL (130-400); RDW Coefficient of Variation 13.5 % (11.5-14.5); Red Blood Count 3.85 M/uL (4.7-6.1); White Blood Count 17.35 K/uL (4.8-10.8)
[2020-05-11 06:02] LABS: Albumin Globulin Ratio 0.6 (0.9-2); Albumin Level 2.4 gm/dl (3.4-5.0); BUN Creatinine Ratio 24.9 (10-20); Bilirubin,Total 0.5 mg/dl (0.2-1); Calcium 8.5 mg/dl (8.5-10.1); Creatinine Clr Calc Pharmacy 78.1 ml/min; Est GFR (African American) 112.9; Est GFR (Non-African American) 97.4; Globulin 3.8 gm/dl (2.5-4.0); Magnesium 2.3 mg/dl (1.8-2.4); Phosphorus 2.8 mg/dl (2.5-4.9); Potassium 3.5 mmol/L (3.5-5.1); Total Protein 6.2 gm/dl (6.4-8.2)
[2020-05-11] MEDS: PIPERACILLIN/TAZOBACTAM 4.5 GM in DEXTROSE 5% 100 ML IV SCH (06:13)
[2020-05-11] MEDS ORDERED: POTASSIUM CHLORIDE CRTAB 20 MEQ TABCR PO STA (06:25)
[2020-05-11] MEDS: D5W AND 1/2NSS + 20MEQ KCL 20 MEQ/1,000 ML BAG IV SCH (07:36)
[2020-05-11] MEDS: ENOXAPARIN INJ 40 MG/0.4 ML SYR SQ SCH (07:37)
[2020-05-11] MEDS: ASPIRIN 81 MG ECTAB PO SCH (07:37)
[2020-05-11] MEDS: NICOTINE 21 MG/24 HR TDSY TD SCH (07:38)
--- NOTE | 2020-05-11 08:18 | Critical Care Progress Note ---
Date of Service May 11, 2020 Assessment & Plan (1) Acute on chronic respiratory failure with hypoxia and hypercapnia: Impression: 60-year-old male with advanced obstructive lung disease p resenting with hypoxemic and hypercarbic respiratory failure requiring intubation mechanical ventilation. He was liberated from the ventilator 48 hours ago and is doing well on nasal cannula Recommendations: 1. Acute hypoxemic and hypercarbic respiratory failure: Resolving. Patient is down to his baseline oxygen requirement by nasal cannula. Blood gas demonstrates persistent elevation of PCO2 in the 60s. The patient may be a candidate for home trilogy ventilation and this can be addressed as an outpatient. Pulmonary follow-up is recommended. Transition prednisone to oral. Start Anoro. Continue duo nebs as needed. Should have outpatient pulmonary [id number] 2. Probable pneumonia: Cultures are negative. He is currently day #3 Zosyn. Would complete 5 days of antimicrobial therapy (can de-escalate down to Rocephin and doxy) and follow clinically. His white count is decreasing and his fever curve appears normal and he is clinically improved. 3. Mild anemia: Counts have remained stable. No indication for transfusion currently. No evidence of ongoing bleeding. Continue to follow clinically. 4. Supply demand mismatch with elevated troponin. It has decreased down to normal limits. Suspect this was related to hypoxemia and not acute coronary syndrome. 5. Increase activity and get out of bed to chair. Patient appears appropriate to transfer out of the intensive care unit to the floor. We will continue to follow for pulmonary issues. Feel free to contact us if we can be of assistance. (2) COPD (chronic obstructive pulmonary disease): (3) Tobacco use disorder: (4) AMS (altered mental status): (5) Metabolic encephalopathy: Admission and Anticipated Discharge Date Admission Date: May 09, 2020 Subjective Patient seen and examined. He is doing well. He does not report any significant increase in shortness of breath. He is ambulating to the restroom. He is tolerating a diet. No coughing wheezing or sputum production. Review of Systems Review of Systems: All systems reviewed & are unremarkable except as noted in HPI & below Physical Exam Constitutional: well developed and + cachectic; no acute distress Neck: trachea midline, no thyromegaly Respiratory: normal respiratory effort; no respiratory distress Diminished breath sounds bilaterally Cardiovascular: RRR, no murmur, no edema Gastrointestinal (Abdomen): normal bowel sounds, soft, nontender, no hepatosplenomegaly Musculoskeletal: Extremities: extremities normal to inspection Skin: no rashes, warm and dry Neurologic: Nonfocal exam Lymphatic: no cervical lymphadenopathy Results & Data Results & Data ([facility]) Vital Signs (Past 12 Hours) Vital Signs Temp Pulse Pulse Resp BP Pulse Ox 05/11/20 07:18 74 18 90 05/11/20 07:00 69 98 05/11/20 06:30 77 97 05/11/20 06:23 69 122/81 96 05/11/20 06:00 70 100 05/11/20 05:30 68 99 05/11/20 05:23 75 124/83 05/11/20 05:00 67 100 05/11/20 04:30 64 100 05/11/20 04:26 77 05/11/20 04:24 72 112/82 100 05/11/20 04:23 69 112/82 100 05/11/20 04:15 71 20 97 05/11/20 04:00 36.7 C 61 100 05/11/20 03:23 68 114/75 100 05/11/20 03:00 68 99 05/11/20 02:23 69 116/72 96 05/11/20 02:00 70 96 05/11/20 01:23 69 133/78 97 05/11/20 01:00 71 96 05/11/20 00:23 70 113/71 100 05/11/20 00:05 63 16 98 05/11/20 00:00 37 C 65 99 05/10/20 23:23 67 135/81 100 05/10/20 23:00 71 100 05/10/20 22:23 72 110/68 100 05/10/20 22:00 69 98 05/10/20 21:23 75 116/74 99 05/10/20 21:00 73 100 05/10/20 20:34 76 20 97 05/10/20 20:23 73 145/90 H 94 Laboratory Results 05/11/20 05:03 05/11/20 05:03 Diagnostic Findings Chest x-ray from 05/10/2020 was independently reviewed. Endotracheal tube is in good position. Lungs are hyperinflated with some patchy infiltrate present on the right greater than left. No effusion. Coding Level of Care Code 66542 Subs Hosp Care Lvl 3 Diagnoses Acute on chronic respiratory failure with hypoxia and hypercapnia J96.21; J96.22 COPD (chronic obstructive pulmonary disease) J44.9 COPD type: unspecified COPD Tobacco use disorder F17.200 AMS (altered mental status) R41.82 Metabolic encephalopathy G93.41 (1) COPD (chronic obstructive pulmonary disease) COPD type: unspecified COPD Qualified Code(s): J44.9 - Chronic obstructive pulmonary disease, unspecified
[2020-05-11] MEDS: UMECLIDINIUM/VILANTEROL 62.5/25MCG 7 PUFFS/INHALER INH SCH (10:15)
[2020-05-11] MEDS: DOXYCYCLINE HYCLATE 100 MG CAP PO SCH ×2 (10:16→20:45)
[2020-05-11] MEDS: predniSONE 20 MG TAB PO SCH (10:16)
[2020-05-11] MEDS: cefTRIAXone SODIUM 1,000 MG in DEXTROSE 5% 50 ML IV SCH (10:16)
--- NOTE | 2020-05-11 10:54 | Psychiatric Consultation ---
Date of Consultation May 11, 2020 Impression / Recommendations Impression Dr. Cynthia Chery was directly involved in review and discussion of the patient's case and participated in medical decision making regarding treatment recommendations. RECOMMENDATIONS: 05/11 - Psychiatric consultation requested to evaluate patient for anxiety and concern for benzodiazepine dependence. - Pt does admit to history of anxiety and depression. He reports worsening of anxiety recently related to shortness of breath and other medical concerns leading to inpatient hospitalization. Expressed concern related to misuse/overuse of a short-acting benzodiazepine to manage anxiety given his comorbidities. We discussed recommendation to switch to a longer-acting benzodiazepine and taper the dose as tolerated. Pt states he has taken clonazepam in the past and feels it had been effective for anxiety. Based on his reports of taking as much as 4mg of alprazolam daily, would suggest starting with 1mg of clonazepam TID - holding dose if any concern for sedation/confusion. Would suggest tapering this dose as tolerated over the course of his hospitalization, with ability to continue this on an outpatient basis as well. Pt reported understanding of recommendation and was agreeable with plan after discussing risks and benefits. - We will request current psychiatric medication list from [facility] to confirm home medications, may be a source to gather collateral information as well. Pt believes he takes 300mg of sertraline daily, but external prescription history indicates only 200mg has been prescribed. Until this dose can be confirmed, would suggest resuming 200mg daily. We will attempt to have office schedule a follow-up outpatient psychiatry appointment with the patient, given medication changes and need for continued monitoring with use of controlled prescriptions. - Pt denies SI and any significant mood or safety concerns. No indication for inpatient psychiatric treatment at this time. We appreciate the opportunity to participate in the care of this patient. Please reach out to our service with any additional questions or updates. Psych History Identifying Data 60-year-old male admitted medically on 05/09/2020 after presenting to the ED with reports of worsening shortness of breath. Psychiatric consultation was requested to evaluate the patient for anxiety, with concern for misuse/overuse of his prescription alprazolam. Chief Complaint "Yeah, they said you would be seeing me. I guess the concern was I went through 28 days of medication in 21 days." History of Present Illness Reed Aldrich is a 60-year-old male admitted medically on 05/09/2020 after presenting to the ED with reported shortness of breath. Pt has a history of COPD with oxygen dependency, and was reportedly found by family to be confused. Pt required intubation and sedation in the ED. Psychiatric consultation was requested to evaluate the patient for anxiety with concern for benzodiazepine dependence. Pt was cooperative with psychiatric assessment. He reports understanding that his overuse of alprazolam is a concern, and admitted to using as much as 4mg of alprazolam daily to manage his anxiety. We discussed that benzodiazepines are generally not ideal in an individual already suffering with breathing concerns, but especially when utilized to that degree. Pt does report that his anxiety and mood had been well-controlled with his current medication regimen for the past 6 months. He does believe his current anxiety is most likely related to his current medical concerns. Pt was open to discussing medication recommendations, specifically recommendation to convert to a longer-acting benzodiazepine with recommendation to slowly taper the dose. Pt denied SI or any significant mood concerns. He states he had been seen by Dr. Marta Bueno w ana [facility] for management of his psychiatric medications. He does not believe that he has a follow-up appointment scheduled at this time, but had been attempting to schedule one. Pt believed his dose of sertraline to be 300mg daily; however, is permitting our service to confirm this dose as external records are not consistent with this report. Pt denied other needs from our service at this time. Past Psychiatric History Outpatient Services: Psychiatric medications had been prescribed recently by Dr. Marta Bueno - pt had been seen recently through [facility] for psychiatric medication management. Previous Psych Admissions: None History of Previous Suicide Attempt: No Past Medication Trials: Per external medication history: 1. Trazodone 2. Ambien 3. Zoloft 4. Remeron 5. Klonopin 6. Xanax Allergies Allergy/AdvReac Type Severity Reaction Status Date / Time No Known Allergies Allergy Verified 05/09/20 08:46 Home Medications Medication Instructions Recorded Confirmed Type alprazolam [Xanax] 1 mg PO TID 03/20/19 05/09/20 History ipratropium-albuterol 3 ml INHALATION Q4H PRN 03/20/19 05/09/20 History sertraline [Zoloft] 300 mg PO QPM 03/20/19 05/09/20 History tizanidine [Zanaflex] 2 mg PO Q8H PRN 03/20/19 05/09/20 History mirtazapine 15 mg PO HS 11/27/19 05/09/20 History albuterol sulfate [Ventolin HFA] 2 puff INHALATION Q4H PRN 04/05/20 05/09/20 History aspirin [Aspirin Low Dose] 81 mg PO DAILY 04/05/20 05/09/20 History Family History Denies known family history of mental health conditions. Substance Abuse History Denies significant alcohol or tobacco use. Denies use of illicit substances. Personal History Living Arrangements: In Daughter's House Living Arrangements Comments: living with , daughter, and grandchildren Marital Status: Beliefs That Will Affect Care: None History of Legal Problems: Denied Patient History Medical History Anxiety Bipolar disorder Chronic pain COPD (chronic obstructive pulmonary disease) H/O: CVA (cerebrovascular accident) Tobacco use disorder Surgical History History of cervical spinal surgery History of hip surgery Family History Other Heart disease Social History Smoking Status: Former smoker Tobacco Type: Cigarettes Cigarettes Per Day: 10; Preferred Language: Nepalese Communication Ability: Effective [employer] Required: No Beliefs That Will Affect Care: None Current Living Situation: Spouse Feels Safe at Home: Yes Assistive Devices: BiPap and Oxygen - Continuous Assistive Devices Comment: unknown Physical Exam Psychiatric: Orientation: alert, oriented x 3 and cooperative Apperance: appropriately dressed, appropriately groomed and appeared stated age Eye Contact: good eye contact Motor Behavior: no abnormal motor movements (observed while sitting upright in bed) Speech: normal rate/rhythm/volume of speech Affect: + anxious affect (mildly so) Mood: + anxious mood (primary concern presently is uncertainty of diagnosis ) Thought Process: goal directed thought process and clear/coherent thought process Thought Content: reality based without delusions; no hopelessness and no worthlessness Suicidal Thoughts: denies suicidal thoughts Homicidal Thoughts: denies homicidal thoughts Hallucinations: no auditory hallucinations and no visual hallucinations Cognition: recent memory grossly intact, attention grossly intact and language grossly intact Estimated Intelligence: consistent with education level Insight: + fair insight Judgement: + fair judgement Vital Signs (Past 24 Hours): Last Vital Signs Temp 36.9 C 05/11/20 08:00 Pulse 80 05/11/20 10:43 Resp 18 05/11/20 10:43 BP 124/86 05/11/20 09:23 Pulse Ox 100 05/11/20 10:43 Review of Systems Constitutional: denied Cardiovascular: denied Respiratory: denied, denies exacerbation of SOB presently Gastrointestinal: denied Neurological: denied Psychiatric: denies symptoms other than stated above Total of at least 10 systems reviewed, pertinent positives as above and in HPI. Results & Data (PSY) Medications Administered Albuterol (Albut/Ipratrop 3mg/0.5mg Neb 3 Ml Vial) 3 ml NEB Q4R LINDA Stop: 06/08/20 14:59 Last Admin: 05/11/20 10:39 Dose: 3 ml Documented by: [id number] Admin: 05/11/20 07:15 Dose: 3 ml Documented by: [id number] Admin: 05/11/20 04:15 Dose: 3 ml Documented by: [id number] Admin: 05/11/20 00:04 Dose: 3 ml Documented by: [id number] Admin: 05/10/20 20:34 Dose: 3 ml Documented by: [id number] Admin: 05/10/20 16:50 Dose: 3 ml Documented by: [id number] Admin: 05/10/20 10:44 Dose: 3 ml Documented by: [id number] Admin: 05/10/20 07:11 Dose: 3 ml Documented by: [id number] Admin: 05/10/20 03:40 Dose: 3 ml Documented by: [id number] Admin: 05/10/20 00:15 Dose: 3 ml Documented by: [id number] Admin: 05/09/20 19:06 Dose: 3 ml Documented by: [id number] Admin: 05/09/20 15:23 Dose: 3 ml Documented by: [id number] Aspirin (Aspirin 81 Mg Ectab) 81 mg PO DAILY LINDA Stop: 06/09/20 08:59 Last Admin: 05/11/20 07:37 Dose: 81 mg Documented by: [id number] Admin: 05/10/20 08:13 Dose: 81 mg Documented by: [id number] Doxycycline Hyclate (Doxycycline Hyclate 100 Mg Cap) 100 mg PO BID LINDA Stop: 05/13/20 21:01 Last Admin: 05/11/20 10:16 Dose: 100 mg Documented by: [id number] Enoxaparin Sodium (Enoxaparin Inj 40 Mg/0.4 Ml Syr) 40 mg SQ QAM [facility] Stop: 06/08/20 14:14 Last Admin: 05/11/20 07:37 Dose: 40 mg Documented by: [id number] Admin: 05/10/20 08:13 Dose: 40 mg Documented by: [id number] Admin: 05/09/20 14:39 Dose: 40 mg Documented by: [id number] Ceftriaxone Sodium 1,000 mg/ (Dextrose) 60 mls @ 100 mls/hr IV DAILY LINDA; Protocol Stop: 05/13/20 09:35 Last Infusion: 05/11/20 10:53 Dose: 0 mls/hr Documented by: [id number] Admin: 05/11/20 10:16 Dose: 100 mls/hr Documented by: [id number] Mirtazapine (Mirtazapine Tab 15 Mg Tab) 15 mg PO HS LINDA Stop: 06/08/20 20:59 Last Admin: 05/10/20 21:04 Dose: 15 mg Documented by: [id number] Admin: 05/09/20 20:19 Dose: 15 mg Documented by: [id number] Miscellaneous (Remove Nicoderm Patch) 1 ea N/A [id number] [facility] Stop: 06/08/20 14:13 Last Admin: 05/11/20 07:38 Dose: 1 ea Documented by: [id number] Admin: 05/10/20 08:14 Dose: 1 ea Documented by: [id number] Admin: 05/09/20 15:00 Dose: Not Given Documented by: [id number] Nicotine (Nicotine 21 Mg/24 Hr Tdsy) 21 mg TD QAM [facility] Stop: 06/08/20 14:14 Last Admin: 05/11/20 07:38 Dose: 21 mg Documented by: [id number] Admin: 05/10/20 08:12 Dose: 21 mg Documented by: [id number] Admin: 05/09/20 14:40 Dose: 21 mg Documented by: [id number] Prednisone (Prednisone 20 Mg Tab) 20 mg PO DAILY [facility] Stop: 05/13/20 09:01 Last Admin: 05/11/20 10:16 Dose: 20 mg Documented by: [id number] Umeclidinium/Vilanterol (Umeclidinium/Vilanterol 62.5/25mcg 7 Puffs/Inhaler) 1 puffs INH DAILY LINDA Stop: 06/10/20 08:59 Last Admin: 05/11/20 10:15 Dose: 1 puffs Documented by: [id number] Coding Level of Care Code 16606 [facility] Intl Hosp Care Lvl 2
[2020-05-11] MEDS: clonazePAM 1 MG TAB PO SCH ×2 (14:36→20:45)
[2020-05-11] MEDS: SERTRALINE HCL 100 MG TABLET PO SCH (14:36)
[2020-05-11 16:43] LABS: iSTAT Arterial Blood Gas pCO2 75 mmHg (35-46); iSTAT Arterial Blood Gas pH 7.31 (7.35-7.45); iSTAT Arterial Blood Gas pO2 90 mmHg (80-95)
[2020-05-11 16:44] LABS: iSTAT Allen Test Acceptable; iSTAT Arterial Blood Gas HCO3 38 meg/L (19-24); iSTAT Carbon Dioxide 40 mmol/L (24-31); iSTAT Sample Type Arterial
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
[2020-05-11] MEDS: MIRTAZAPINE TAB 15 MG TAB PO SCH (20:45)
[2020-05-12] MEDS: ALBUT/IPRATROP 3MG/0.5MG NEB 3 ML VIAL NEB SCH ×5 (00:18→15:16)
[2020-05-12] MEDS: UMECLIDINIUM/VILANTEROL 62.5/25MCG 7 PUFFS/INHALER INH SCH (08:30)
[2020-05-12] MEDS: cefTRIAXone SODIUM 1,000 MG in DEXTROSE 5% 50 ML IV SCH (08:31)
[2020-05-12] MEDS: SERTRALINE HCL 100 MG TABLET PO SCH (08:31)
[2020-05-12] MEDS: ENOXAPARIN INJ 40 MG/0.4 ML SYR SQ SCH (08:31)
[2020-05-12] MEDS: NICOTINE 21 MG/24 HR TDSY TD SCH (08:32)
[2020-05-12] MEDS: ASPIRIN 81 MG ECTAB PO SCH (08:32)
[2020-05-12] MEDS: DOXYCYCLINE HYCLATE 100 MG CAP PO SCH (08:32)
[2020-05-12] MEDS: predniSONE 20 MG TAB PO SCH (08:32)
[2020-05-12] MEDS: clonazePAM 1 MG TAB PO SCH ×2 (08:32→13:05)
[2020-05-12 09:49] LABS: Hemoglobin 11.6 g/dL (14.0-18.0); Mean Corpuscular Hemoglobin 29.9 pg (25-34); Mean Corpuscular Hgb Conc 32.2 g/dL (32-36); Mean Corpuscular Volume 92.8 fL (80-100); Mean Platelet Volume 10.3 fL (7.4-10.4); Platelet Count 297 K/uL (130-400); RDW Coefficient of Variation 13.8 % (11.5-14.5); RDW Standard Deviation 46.3 fL (36.4-46.3); Red Blood Count 3.88 M/uL (4.7-6.1); White Blood Count 11.73 K/uL (4.8-10.8)
--- NOTE | 2020-05-12 16:16 | Pulmonology Progress Note ---
Date of Service May 12, 2020 Assessment & Plan (1) Acute on chronic respiratory failure with hypoxia and hypercapnia: Impression: 60-year-old male with advanced obstructive lung disease p resenting with hypoxemic and hypercarbic respiratory failure requiring intubation mechanical ventilation. He was liberated from the ventilator 48 hours ago and is doing well on nasal cannula Recommendations: 1. Acute hypoxemic and hypercarbic respiratory failure due to COPD: Resolving. Patient appears to be back to his baseline. Recommend continuing Anoro.. Complete total of 5 days of prednisone. He should follow-up with the pulmonary group at [facility] in 2 to 4 weeks with a chest x-ray and consideration for outpatient PFTs may be appropriate 2. Probable pneumonia: Cultures are negative. Will complete a total of 5 days of Ceftin and doxycycline. He should have a follow-up chest x-ray in 2 to 4 weeks with the pulmonary group at [facility]. Patient appears appropriate for discharge from the hospital. Pulmonary will sign off at this point time. Call us if we can be of additional assistance. (2) Acute respiratory failure: Respiratory failure complication: hypoxia and hypercapnia Qualif ied Code(s): J96.01 - Acute respiratory failure with hypoxia; J96.02 - Acute respiratory failure with hypercapnia (3) COPD (chronic obstructive pulmonary disease): COPD type: unspecified COPD Qualified Code(s): J44.9 - Chronic obstructive pulmonary disease, unspecified Admission and Anticipated Discharge Date Admission Date: May 09, 2020 Subjective Patient seen and examined. Discussed with patient as well as hospitalist at the bedside. He is doing well clinically. He reports no shortness of breath. He is not coughing or having any sputum production. He thinks the Anoro was helpful. He has been ambulatory and tolerating a regular diet. He feels ready to go home and is at his baseline Review of Systems Review of Systems: All systems reviewed & are unremarkable except as noted in HPI & below Physical Exam Physical Exam: General- No acute distress, frail Head- atraumatic Eyes- PERRL, EOMI, ENT- oropharynx clear Neck- supple, no JVD Lungs- diminished BS Heart- regular rhythm; no murmur Abdomen- normal bowel sounds, soft, nontender Extremities- no calf tenderness Neuro- alert, oriented x 3; PERRL, EOMI; no facial palsy; no dysarthria Skin- warm & dry Results & Data Results & Data ([facility]) Vital Signs (Past 12 Hours) Vital Signs Temp Pulse Pulse Resp BP Pulse Ox 05/12/20 15:33 36.5 C 84 73 18 139/77 97 05/12/20 15:18 84 18 97 05/12/20 11:06 67 16 97 05/12/20 10:15 97 05/12/20 07:04 73 17 96 Laboratory Results 05/12/20 09:37 05/11/20 05:03 Diagnostic Findings No new imaging PG Care Time/CCT Total # of Minutes Spent Total Time Spent with Patient: Total time spent is greater than 50% in coordination of care (as documented) at patient's floor/unit and/or counseling patient: Coding Level of Care Code 92166 Subseq Hosp Care Lvl 2 Diagnoses Acute on chronic respiratory failure with hypoxia and hypercapnia J96.21; J96.22 Acute respiratory failure J96.01; J96.02 Respiratory failure complication: hypoxia and hypercapnia COPD (chronic obstructive pulmonary disease) J44.9 COPD type: unspecified COPD
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
--- NOTE | 2020-05-13 13:57 | Discharge Summary ---
Date of Service May 12, 2020 Admission HPI Per Admitting Provider Patient is a 60-year-old male with history of COPD, chronic respiratory failure with oxygen dependency, ongoing tobacco use disorder, degenerative disc disease, bipolar affective disorder, pulmonary nodules, insomnia and other medical problems presents with history of worsening shortness of breath and confusion. Patient is currently intubated and sedated while in ED. History and review of systems could not be obtained. Most of the history is obtained from ER physician Dr. Marshall and from old records. Patient was noted to be in severe respiratory distress and was found to be confused by the family. Patient was having difficulty breathing since overnight and was found to be off oxygen this morning. Family tried to place patient CPAP back but as patient was obtunded he kept pushing away the curettement and so the family called 911 for further assistance. Patient was found to be saturating in the 70s. He was placed on BiPAP and was sent to ED. Patient's family also noted him to have decreased acti vity over the last 3 weeks and was very depressed secondary to his illness. He had very poor oral intake, decreased appetite since 1 week duration. He was not taking his medications appropriately as per the family. Patient complained of headache while in ED. Also family informed nonproductive cough chronically which they attributed to COPD. CT head showed no acute intracranial abnormality. CTA showed no evidence of PE. Showed findings of multifocal pneumonia, pulmonary nodules and findings suggestive of advanced COPD, right hilar lymphadenopathy. Patient was intubated while in ED and was admitted to ICU for further evaluation. Admission Exam Per Admitting Provider Physical Exam: Vitals signs as noted above General Appearance: Chronically ill appearing, thin, frail, + intubated Head: normocephalic, Atraumatic Eyes: normal inspection, IBETH Neck: supple, Trachea midline Respiratory/Chest: Decreased breath sounds, clear to auscultation, No accessory muscle use Cardiovascular: S1, S2, No murmur Abdomen/GI:Soft, Non tender, Bowel sounds present Extremities/Musculoskelatal:normal inspection, no edema Neurologic/Psych: Intubated, sedated complete neurological exam could not be performed. Skin: normal color, warm, +Multiple tattoos Principal Diagnosis Acute and chronic respiratory failure: Pneumonia COPD exacerbation Severe Sepsis Elevated D-dimer Elevated troponin Acute metabolic encephalopathy Tobacco use disorder Bipolar affective disorder Anxiety disorder Discharge Exam General- No acute distress, frail Head- atraumatic Eyes- PERRL, EOMI, ENT- oropharynx clear Neck- supple, no JVD Lungs- diminished BS Heart- regular rhythm; no murmur Abdomen- normal bowel sounds, soft, nontender Extremities- no calf tenderness Neuro- alert, oriented x 3; PERRL, EOMI; no facial palsy; no dysarthria Skin- warm & dry Discharge Data Allergies Allergy/AdvReac Type Severity Reaction Status Date / Time No Known Allergies Allergy Verified 05/09/20 08:46 Consultations 05/09/20 09:41 ED Decision to Admit Stat 05/09/20 10:27 Consult Quality Control Engineer Stat 05/09/20 13:53 Consult Case Management - Discharge Planning Routine 05/10/20 16:47 Consult Psychiatry Routine Ordered Studies 05/09/20 09:44 CT angio chest PE protocol Stat CT head/brain wo con Stat 05/09/20 13:53 US venous doppler LE BI Routine XR chest 1V portable HISTORY: Respiratory failure. COMPARISON: Chest 05/09/2020. FINDINGS: Advanced emphysema. Right lung airspace opacities have slightly improved. No pneumothorax. No pleural effusions. The heart is normal in size. Nasogastric tube terminates below the diaphragm. The endotracheal tube terminates 5.8 cm from the danny. Cervical spinal fusion hardware is noted. IMPRESSION: 1. Improved aeration within the right lung airspace opacities. 2. The endotracheal tube terminates 5.8 cm and the danny. Nasogastric tube terminates below the diaphragm. 3. Advanced emphysema. ACT 112: Negative or not required by law. Electronically signed by: Gurinder White M.D. 05/10/2020 8:58 AM Dictated: 05/10/2057Transcribed: 05/10/2057 BILATERAL LOWER EXTREMITY VENOUS DOPPLER HISTORY: Elevated D dimer COMPARISON STUDY: None. FINDINGS: There is normal compressibility, flow, and augmentation within the bilateral lower extremity deep venous systems. IMPRESSION: No DVT within the right or left lower extremity. ACT 112: Negative or not required by law. Electronically signed by: Gurinder White M.D. 05/10/2020 8:12 AM Dictated: 05/10/20 0812Transcribed: 05/10/20811 XR chest 1V portable HISTORY: intubation COMPARISON: Chest 05/09/2020. FINDINGS: The endotracheal tube terminates 7 cm from the danny. This should be advanced by approximately 3 to 4 cm. No pneumothorax. Old, healed bilateral rib fractures. Advanced emphysema. The heart is normal in size. Cervical spinal fusion hardware is noted. Patchy right mid to lower lung zone airspace opacities persist and are consistent with a pneumonia. IMPRESSION: 1. Endotracheal tube terminates 7 cm from the danny. This should be advanced by approximately 3 to 4 cm. 2. Right mid to lower lung zone airspace opacities persist. ACT 112: Negative or not required by law. Electronically signed by: Gurinder White M.D. 05/09/2020 12:06 PM Dictated: 05/09/20 1205Transcribed: 05/09/[address] DOSE: 3623.16 mGy.cm HISTORY: Altered mental status. TECHNIQUE: Multiaxial CT images of the head were performed without the use of intravenous contrast. Automated exposure control was utilized for this study. A dose lowering technique was utilized adhering to the principles of ALARA. Comparison: Head CT 11/27/2019. Findings: The paranasal sinuses and mastoid air cells are clear. The calvarium and skull base are intact. The ventricles and sulci are within normal limits. There is no mass, hematoma, midline shift, or acute infarct. Motion artifact. Impression: Motion artifact. No definite acute intracranial abnormality. ACT 112: Negative or not required by law. Electronically signed by: Gurinder White M.D. 05/09/2020 11:16 AM Dictated: 05/09/20 1114Transcribed: 05/09/20 1114 CHEST CTA for PULMONARY ARTERIES CT DOSE: HISTORY: Shortness of breath. TECHNIQUE: Multiaxial CT images of the chest were performed following the intravenous administration of contrast to evaluate the pulmonary arteries. Maximal intensity projection images were also obtained. A dose lowering technique was utilized adhering to the principles of ALARA. COMPARISON STUDY: Chest CTA 11/27/2019. FINDINGS: Mild anterior wedging within a few of the mid thoracic spine vertebral bodies. This remains unchanged. Cervical spinal fusion hardware is noted. Old, healed bilateral rib fractures are again noted. Normal caliber thoracic aorta with no evidence for dissection. The heart is normal in size. No pleural or pericardial effusions. Right lower lobe subsegmental pulmonary arteries are nondiagnostic due to the motion artifact. Otherwise, no filling defects within the remaining pulmonary arteries to suggest pulmonary embolus. No mediastinal lymphadenopathy. A few mildly enlarged right hilar lymph nodes measuring up to 11 mm in short axis diameter. This may be reactive. This is new from the prior study. Limited views of the upper abdomen demonstrate a normal liver, spleen, and adrenal glands. Retrograde opacification of the hepatic veins is noted. Normal esophagus. Advanced bullous emphysema is again noted. A few scattered subcentimeter pulmonary nodules are again noted. These are not simply changed. Dominant nodule within the left upper lobe measures 6 mm. Partial opacification of the bilateral lower lobe segmental and subsegmental bronchi, right greater than left. There are associated patchy areas consolidation within the bilateral lower lobes posteriorly, right greater than left. This is consistent with a pneumonia and favors aspiration. IMPRESSION: 1. No evidence for pulmonary embolus. 2. Partial opacification of the bilateral lower lobe segmental and subsegmental bronchi, right greater than left. There are associated small patchy areas consolidation within the bilateral lower lobes posteriorly, right greater than left. This is consistent with a pneumonia and favors aspiration. 3. Stable subcentimeter pulmonary nodules with the largest in the left upper lobe measuring 6 mm. Refer to the chart below for recommended follow-up. 4. Advanced emphysema. 5. A few mildly enlarged right hilar lymph nodes. This may be reactive to the suspected pneumonia. This also bears watching on future examinations. Please refer to below summary of Fleischner criteria recommendations for follow- up of incidental CT nodules (Joselo Cole, Guidelines for management of small pulmonary nodules detected on CT scans: A statement from the Fleischner Society, Radiology 237: [phone].) SOLID NODULES Solitary nodule size: <6 mm * Low risk patients: no follow-up needed * high risk patients: optional CT at 12 months Solitary nodule size: 6-8 mm * Low risk patients: follow-up at 6-12 months, then consider further follow-up at 18-24 months * high risk patients: initial follow-up CT at 6-12 months and then at 18-24 months if no change Solitary nodule size: >8 mm * either low or high risk patients - consider follow-up CT at 3 months, and/or CT-PET, and/or biopsy Multiple nodules size: <6 mm * Low risk patients: no routine follow-up * high risk patients: optional CT at 12 months Multiple nodules size: 6-8 mm * Low risk patients: follow-up at 3-6 months, then consider further follow-up at 18-24 months * high risk patients: follow-up at 3-6 months, then at 18-24 months if no change Multiple nodules size: >8 mm * Low risk patients: follow-up at 3-6 months, then consider further follow-up at 18-24 months * high risk patients: follow-up at 3-6 months, then at 18-24 months if no change Note: newly detected indeterminate nodule in persons 35 years of age or older. * Low risk patients: minimal or absent history of smoking and/or other known risk factors * high risk patients: history of smoking or of other known risk factors (e.g. first degree relative with lung cancer, or exposure to asbestos, radon, uranium) * if a nodule up to 8 mm is partly solid or is ground glass further follow-up is required after 24 months to exclude possible slow growing adenocarcinoma (DEISI) SUBSOLID NODULES Solitary pure ground-glass nodule * nodule size <6 mm - no CT follow-up required * nodule size >=6 mm - follow-up CT at 6-12 months, then every 2 years until 5 years Solitary part-solid nodule * nodule size <6 mm - no CT follow-up required * nodule size >=6 mm - follow-up CT at 3-6 months. If unchanged, and solid component remains <6 mm, then annual follow-up for 5 years Multiple subsolid nodules * nodule size <6 mm - follow-up CT at 3-6 months, consider further follow-up at 2 and 4 years if stable * nodule size >=6 mm - follow-up CT at 3-6 months, subsequent management based on the most suspicious nodule(s) ACT 112: Negative or not required by law. Electronically signed by: Gurinder White M.D. 05/09/2020 11:13 AM Dictated: 05/09/20 1104Transcribed: 05/09/20 1104 XR chest 1V portable HISTORY: SEPSIS COMPARISON: Chest and right rib series 04/05/2020. FINDINGS: No pneumothorax. No pleural effusions. The heart is normal in size. The lungs are hyperexpanded with advanced emphysematous changes. This remains unchanged. There are old, healed right-sided rib fractures. Progressive interstitial thickening within the right lung with a few patchy hazy airspace opacities. This could represent a pneumonia or less likely asymmetric congestive change. The left lung appears clear. Cervical spinal fusion hardware is noted. IMPRESSION: 1. Progressive interstitial thickening and hazy patchy airspace opacities within the right lung. This may represent a pneumonia or less likely asymmetric congestive change. 2. Advanced emphysema. ACT 112: Negative or not required by law. Electronically signed by: Gurinder White M.D. 05/09/2020 9:07 AM Dictated: 05/09/20905Transcribed: 05/09/20905 XR chest 1V portable HISTORY: SEPSIS COMPARISON: Chest and right rib series 04/05/2020. FINDINGS: No pneumothorax. No pleural effusions. The heart is normal in size. The lungs are hyperexpanded with advanced emphysematous changes. This remains unchanged. There are old, healed right-sided rib fractures. Progressive interstitial thickening within the right lung with a few patchy hazy airspace opacities. This could represent a pneumonia or less likely asymmetric congestive change. The left lung appears clear. Cervical spinal fusion hardware is noted. IMPRESSION: 1. Progressive interstitial thickening and hazy patchy airspace opacities within the right lung. This may represent a pneumonia or less likely asymmetric congestive change. 2. Advanced emphysema. ACT 112: Negative or not required by law. Electronically signed by: Gurinder White M.D. 05/09/2020 9:07 AM Dictated: 05/09/20905Transcribed: 05/09/20905 Hospital Course (1) Acute and chronic respiratory failure: Pneumonia COPD exacerbation Acute on chronic respiratory failure with hypoxia, hypercapnia Worsening SOB where Pt was intubated on admission CTA chest showed no evidence for pulmonary embolus. Partial opacification of the bilateral lower lobe segmental and subsegmental bronchi, right greater than left. There are associated small patchy areas consolidation within the bilateral lower lobes posteriorly, right greater than left CXR on admission showed progressive interstitial thickening and hazy patchy airspace opacities within the right lung. Bio fire 05/09/2020 -ve, COVID-19 negative, influenza A/B -ve, nasal MRSA negative VBG on admission showed respiratory acidosis with pH 7.27 and pCO2 87 S/P extubation on 05/10/20 Received broad spectrum abx with IV Vanco, Zosyn and doxycycline in the ER Vanco was discontinued and continue with IV doxy and Zosyn Received IV solumedrol, then transition to PO prednisone Not on any maintenance inhaler for the COPD, will consider to add Anoro on discharge Quality Control Engineer on board Will need to arrange for home trilogy ventilation and this can be addressed with pulm at next appointment case discussed with pulm Dr Pascal that recommended to discharge on Ceftin, Doxycycline and prednisone to complete a total 5 days course Follow up with Dm castillo in 2 to 4 weeks with follow chest xray Continue oxygen supplement on discharge Severe Sepsis Mostly due to multifocal pneumonia Elevated Lactate at 2.6 and WBC 32K on admission Continue IV abx with Zosyn and Doxycline Lactate normalized and WBC continue trending down 23k--> 17K -->11K Blood cx no growth so far Will transition to PO ceftin and doxycycline to complete a total 5 days course of abx Elevated D-dimer CTA no evidence of PE Doppler of LE showed no DVT within the right or left lower extremity. Elevated troponin Hx of Chronic troponin elevation Likely type II OK secondary to hypoxia, sepsis EKG showed no acute ischemia Troponin on admission 0.046, then normalized Denies any chest pain Continue aspirin Acute metabolic encephalopathy CT head showed no acute abnormality Urine tox positive for benzodiazepines Continue to hold Benzodiazepine Monitor for withdrawal resolved Tobacco use disorder Nicotine patch Counseled to quit smoking Severe protein-calorie malnutrition Increase protein intake Bipolar affective disorder Anxiety disorder Pt has been taking 3 to 4 tabs of Xanax 1mg daily Psych on board recommended to change Xanax to Klonopin Klonopin 1mg TID was started by Psych, holding dose if any concern for sedation/confusion. case discussed with psych and recommended to taper Klonopin to 1mg BID for 3 days, then 0.5mg BID, then continue to taper slowly Zoloft 200mg resumed for now until confirming the dose of 300mg daily Follow up with Dm Psych Dr. bueno Pulmonary nodules Follow-up outpatient with Pulm DVT prophylaxis Lovenox SQ CODE STATUS Full code Disposition Discharge home today Total Time Total Time Spent Total Time Spent (In Minutes): 35 minutes Total Time Includes: Examination of the Patient, Discharge Planning, Medication Reconciliation, Communication With Other Providers and Other Discharge Plan Discharge Items Patient Disposition: Home - Self-Care Reason For Visit: ACUTE RESP FAILURE Discharge Diagnosis: Acute and chronic respiratory failure: Pneumonia COPD exacerbation Severe Sepsis Elevated D-dimer Elevated troponin Acute metabolic encephalopathy Tobacco use disorder Bipolar affective disorder Anxiety disorder Condition on Discharge: Good Activity: Resume your previous activity Non-emergency contact: Primary Care Provider Call non-emergency contact if: you have any medication questions Follow-up/Referrals: Chris Diaz DO [Primary Care Provider] - (Date & Time 05/18/2020 11:00 AM Provider Rivas Baltazar MD Department [facility] ) Froilan Ayala MD [Outside Practitioners] - (Date & Time 06/10/2020 8:40 AM Provider Froilan Ayala MD Department Pulmonary Medicine, [facility] ) Diet: Regular Addtl Attending Provider Instructions: Follow up with your primary care provider Dr. Baltazar (dr. Diaz's colleague ) on 05/18/2020 11:00 AM at the [facility] Follow up with Pulmonology Dr. Ayala on 06/10/2020 8:40 AM at the Pulmonary Medicine, [facility] Follow up with your psychiatrist dr. Bueno Continue oxygen supplement Complete the course of the antibiotic Your physician or pulmonology will order a repeat chest xray in 2 to 4 weeks Follow up with pulmonology for the lung nodule Counseling on smoking cessation Pending Studies at Discharge: No Stand-Alone Forms: My [facility], Smoking Cessation Medications and DC Order Prescriptions: New clonazepam 1 mg Tablet 1 mg PO UD Qty: 15 RF: 0 doxycycline hyclate 100 mg Capsule 100 mg PO BID 2 Days Qty: 4 RF: 0 cefdinir 300 mg capsule 300 mg PO BID 2 Days Qty: 4 RF: 0 prednisone 20 mg Tablet 20 mg PO DAILY 2 Days Qty: 2 RF: 0 Anoro Ellipta 62.5-25 mcg/actuation blister with device 1 inh inhalation DAILY Qty: 60 RF: 0 Continued mirtazapine 15 mg tablet 15 mg PO HS RF: 0 aspirin [Aspirin Low Dose] 81 mg Tablet,Delayed Release (Dr/Ec) 81 mg PO DAILY RF: 0 albuterol sulfate [Ventolin HFA] 90 mcg/actuation HFA aerosol inhaler 2 puff INHALATION Q4H PRN (Reason: Shortness Of Breath Or Wheezing) RF: 0 ipratropium-albuterol 0.5 mg-3 mg(2.5 mg base)/3 mL solution for nebulization 3 ml inhalation Q4H PRN (Reason: Shortness Of Breath Or Wheezing) RF: 0 tizanidine [Zanaflex] 4 mg tablet 2 mg PO Q8H PRN (Reason: Muscle Spasm) RF: 0 Changed sertraline [Zoloft] 100 mg tablet 200 mg PO QPM Qty: 0 RF: 0 Discontinued alprazolam [Xanax] 1 mg tablet 1 mg PO TID RF: 0 Discharge Orders: Discharge Order (Routine); Ordered 05/12/20 Ordered By: Vita Smith/Other Patient Handouts: Chest and Lung Problems, What Is COPD?, Treatment for COPD Admission Data Admit Date/Time: 05/09/20 12:07 Attending Provider: Vita Lucas Admit Provider: Jorge L Almodovar Primary Care Provider: Chris Diaz Other Providers: Jorge L Almodovar ; Vita Lucas ; Leonard Clinton ; Luis Alberto Hampton Other Interventions: Discharge Summary Assessment (RN) Last Done: 05/12/20 15:33 PSY Interdisciplinary Discharge Planning Last Done: 05/11/20 13:31
== END 2020-05-12 18:00 | disposition home or self-care (01) | DRG 871 ==
LOC: ED 07:46 → 1E 12:07 → SUATTDRO 12:07 → 1E 13:20 → 3W 05-11 19:25

== ENCOUNTER 2020-08-17 16:26 | Inpatient (IN) ==
[2020-08-17] MEDS ORDERED: HYDROCODONE/ACETAMOPHEN 5/325MG TAB PO STA (17:54)
--- NOTE | 2020-08-17 17:58 | Emergency Department Note ---
History of Present Illness General Chief complaint: Shortness of Breath/Dyspnea Stated complaint: TROUBLE BREATHING, COUGH Time Seen by Provider: 08/17/20 17:43 History of Present Illness Maximum Pain Intensity: 10 This is a 60-year-old male that presents to the emergency department via private vehicle with complaints "trouble breathing, cough". Patient notes a history of COPD/emphysema. He notes that he recently was visited by his 2 daughters and granddaughter last week and 2 days later began with rhinorrhea and cough. He notes he is now using 3 L of oxygen which is an increase from his baseline of 2 L. Patient feels more short of breath. His cough is productive of green spu chiqui. He has associated chills. No fever. He also lost taste about 1 week ago to savory flavors but not sweet flavors. He also notes associated diarrhea which stopped yesterday. He also notes pain in his neck and upper shoulder regions secondary to his cough but no chest pain. Patient denies any history of PE. Home Medications Medication Instructions Recorded Confirmed Type ipratropium-albuterol 3 ml INHALATION Q4H PRN 03/20/19 08/17/20 History tizanidine [Zanaflex] 2 mg PO Q8H PRN 03/20/19 08/17/20 History albuterol sulfate [Ventolin HFA] 2 puff INHALATION Q4H PRN 04/05/20 08/17/20 History aspirin [Aspirin Low Dose] 81 mg PO DAILY 04/05/20 08/17/20 History umeclidinium-vilanterol [Anoro 1 inh INHALATION DAILY #60 ea 05/12/20 08/17/20 Rx Ellipta] clonazepam 1 mg PO TID 08/17/20 08/17/20 History codeine-guaifenesin [Guaiatussin 5 ml PO Q4H PRN 08/17/20 08/17/20 History AC] doxepin 10 mg PO HS 08/17/20 08/17/20 History mirtazapine 45 mg PO HS 08/17/20 08/17/20 History sertraline [Zoloft] 200 mg PO HS 08/17/20 08/17/20 History Allergies Allergy/AdvReac Type Severity Reaction Status Date / Time No Known Allergies Allergy Verified 08/17/20 19:02 Past Med/Surg History Medical History (Updated 08/18/20 @ 01:29 by Nahid Alvarez PA-C) Anxiety Bipolar disorder Chronic pain COPD (chronic obstructive pulmonary disease) H/O: CVA (cerebrovascular accident) Tobacco use disorder Surgical History History of cervical spinal surgery History of hip surgery Family History Other Heart disease Social History Smoking Status: Current every day smoker Tobacco Type: Cigarettes Cigarettes Per Day: 5; Hx Alcohol Use: No Preferred Language: Wolof Communication Ability: Effective 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 [employer] 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 Required: No Beliefs That Will Affect Care: None Current Living Situation: Spouse Current Living Situation Comment: , Daughter, son in law, 2 grand children Feels Safe at Home: Yes Safety Concerns: Feels Safe At This Time Assistive Devices: BiPap, Cane and Glasses Review of Systems A total of 10 systems reviewed and were otherwise negative Physical Exam Vital Signs Vital Signs - 24 hr 08/17/20 16:40 08/17/20 18:00 08/17/20 18:15 Temperature 36.6 C Temperature Source Temporal Artery Scan Pulse Rate 78 77 Pulse Rate [Right Apical] Pulse Rate from SpO2 Sensor Respiratory Rate 20 21 Respiratory Effort / Characteristics Blood Pressure 114/73 126/76 Blood Pressure Mean 86 92 Pulse Oximetry 99 81 L 81 L Oxygen Delivery Method Nasal Cannula Room Air Room Air Oxygen Flow Rate 3 Sepsis Recent Fever Within 48 Hours No Sepsis New/Unexplained Change in Mental Status N/A Sepsis Action Taken by Nursing No Action Required Oxygen Flow Rate - Titration Pulse Oximetry Post Tiitration 08/17/20 18:30 08/17/20 18:45 08/17/20 18:59 Temperature Temperature Source Pulse Rate 75 75 Pulse Rate [Right Apical] Pulse Rate from SpO2 Sensor 74 Respiratory Rate 16 17 Respiratory Effort / Characteristics Blood Pressure 110/78 130/85 Blood Pressure Mean 88 100 Pulse Oximetry 89 L 86 L 81 L Oxygen Delivery Method Nasal Cannula Nasal Cannula Oxymask Room Air Nasal Cannula Oxygen Flow Rate 3 3 0 Sepsis Recent Fever Within 48 Hours Sepsis New/Unexplained Change in Mental Status Sepsis Action Taken by Nursing Oxygen Flow Rate - Titration 6 3 Pulse Oximetry Post Tiitration 98 86 L 08/17/20 19:00 08/17/20 19:15 08/17/20 19:30 Temperature Temperature Source Pulse Rate 76 71 72 Pulse Rate [Right Apical] Pulse Rate from SpO2 Sensor 76 71 69 Respiratory Rate 19 18 18 Respiratory Effort / Characteristics Blood Pressure 125/80 108/70 109/70 Blood Pressure Mean 95 82 83 Pulse Oximetry 99 99 99 Oxygen Delivery Method Oxymask Oxymask Oxymask Oxygen Flow Rate 6 6 6 Sepsis Recent Fever Within 48 Hours Sepsis New/Unexplained Change in Mental Status Sepsis Action Taken by Nursing Oxygen Flow Rate - Titration Pulse Oximetry Post Tiitration 08/17/20 19:45 08/17/20 20:00 08/17/20 20:15 Temperature Temperature Source Pulse Rate 71 71 70 Pulse Rate [Right Apical] Pulse Rate from SpO2 Sensor 71 71 70 Respiratory Rate 17 16 20 Respiratory Effort / Characteristics Blood Pressure 106/68 104/68 94/66 L Blood Pressure Mean 80 80 75 Pulse Oximetry 99 100 100 Oxygen Delivery Method Oxymask Oxymask Oxymask Oxygen Flow Rate 6 6 6 Sepsis Recent Fever Within 48 Hours Sepsis New/Unexplained Change in Mental Status Sepsis Action Taken by Nursing Oxygen Flow Rate - Titration Pulse Oximetry Post Tiitration 08/17/20 20:31 08/17/20 20:33 08/17/20 20:56 Temperature Temperature Source Pulse Rate 71 70 Pulse Rate [Right Apical] 76 Pulse Rate from SpO2 Sensor 71 71 Respiratory Rate 22 16 18 Respiratory Effort / Characteristics Spontaneous Blood Pressure 92/64 L 92/64 L Blood Pressure Mean 73 73 Pulse Oximetry 100 100 100 Oxygen Delivery Method Oxymask Oxymask Oxymask Oxygen Flow Rate 6 6 6 Sepsis Recent Fever Within 48 Hours Sepsis New/Unexplained Change in Mental Status Sepsis Action Taken by Nursing Oxygen Flow Rate - Titration Pulse Oximetry Post Tiitration 08/17/20 21:00 08/17/20 21:15 08/17/20 21:23 Temperature Temperature Source Pulse Rate 77 70 71 Pulse Rate [Right Apical] Pulse Rate from SpO2 Sensor 78 70 71 Respiratory Rate 16 10 L 20 Respiratory Effort / Characteristics Blood Pressure 93/72 L 80/58 L 103/63 Blood Pressure Mean 79 65 76 Pulse Oximetry 100 100 99 Oxygen Delivery Method Oxymask Oxymask Oxymask Oxygen Flow Rate 6 6 6 Sepsis Recent Fever Within 48 Hours Sepsis New/Unexplained Change in Mental Status Sepsis Action Taken by Nursing Oxygen Flow Rate - Titration Pulse Oximetry Post Tiitration 08/17/20 21:30 08/17/20 22:00 08/17/20 22:30 Temperature Temperature Source Pulse Rate 70 70 Pulse Rate [Right Apical] Pulse Rate from SpO2 Sensor 69 70 70 Respiratory Rate 9 L 17 24 Respiratory Effort / Characteristics Blood Pressure 89/61 L 107/70 119/76 Blood Pressure Mean 70 82 90 Pulse Oximetry 99 100 100 Oxygen Delivery Method Oxymask Oxymask Oxymask Oxygen Flow Rate 6 6 6 Sepsis Recent Fever Within 48 Hours Sepsis New/Unexplained Change in Mental Status Sepsis Action Taken by Nursing Oxygen Flow Rate - Titration Pulse Oximetry Post Tiitration 08/17/20 22:50 Temperature Temperature Source Pulse Rate Pulse Rate [Right Apical] Pulse Rate from SpO2 Sensor Respiratory Rate Respiratory Effort / Characteristics Blood Pressure Blood Pressure Mean Pulse Oximetry 100 Oxygen Delivery Method Oxymask Oxygen Flow Rate 6 Sepsis Recent Fever Within 48 Hours Sepsis New/Unexplained Change in Mental Status Sepsis Action Taken by Nursing Oxygen Flow Rate - Titration 4 Pulse Oximetry Post Tiitration 100 VITAL SIGNS - Vital signs and nursing notes were reviewed. Stable and afebrile. GENERAL -60-year-old male appearing his stated age who is in no acute distress but appears fatigued, and tired. Communicates well with provider and answers questions appropriately. SKIN - Without rashes. No meningeal or petechial rash. HEAD - NC/AT. EYES - PERRL with EOMI bilaterally. Sclera anicteric. Palpebral conjunctiva pink and moist with no injection noted. EARS - No deformities of external structures noted on gross examination bilaterally. NOSE - Midline and without cyanosis. No epistaxis or purulent drainage noted. MOUTH/OROPHARYNX - Without perioral cyanosis. NECK - Neck with FROM. No nuchal rigidity. LUNGS - Chest wall symmetric without accessory muscle use, intercostals retractions, or central cyanosis. Decreased breath sounds bilaterally. CARDIAC - RRR with S1/S2. No murmur, rubs, or gallops appreciated. EXTREMITIES - No clubbing or peripheral cyanosis. +5/5 strength noted in UE/LE bilaterally. NEUROLOGIC - Cranial nerves II through XII grossly intact. PSYCH - A&Ox3 and cooperates fully with examiner. Pt is very pleasant and interacts well with examiner. Course Administered Medications Discontinued Medications Hydrocodone Bitart/Acetaminophen (Hydrocodone/Acetamophen 5/325mg Tab) 1 tab PO NOW STA Stop: 08/17/20 17:55 Last Admin: 08/17/20 18:45 Dose: 1 tab Documented by: [id number] Albuterol (Albut/Ipratrop 3mg/0.5mg Neb 3 Ml Vial) 3 ml NEB NOW STA Stop: 08/17/20 20:45 Last Admin: 08/17/20 20:54 Dose: 3 ml Documented by: [id number] Ceftriaxone Sodium (Rocephin) 2,000 mg in 70 mls @ 140 mls/hr IV NOW STA Stop: 08/17/20 20:17 Last Infusion: 08/17/20 21:07 Dose: 0 mls/hr Documented by: [id number] Admin: 08/17/20 20:30 Dose: 140 mls/hr Documented by: [id number] Azithromycin 500 mg/ Dextrose 255 mls @ 125 mls/hr IV ONE ONE Stop: 08/17/20 21:50 Last Infusion: 08/17/20 22:51 Dose: 0 mls/hr Documented by: [id number] Admin: 08/17/20 20:39 Dose: 125 mls/hr Documented by: [id number] Piperacillin Sod/Tazobactam Sod (Zosyn) 4.5 gm in 120 mls @ 240 mls/hr IV NOW STA Stop: 08/17/20 21:45 Last Infusion: 08/17/20 21:53 Dose: 0 mls/hr Documented by: [id number] Admin: 08/17/20 21:23 Dose: 240 mls/hr Documented by: [id number] Sodium Chloride (Nss 1000ml) 1,000 mls @ 500 mls/hr IV .Q2H ONE Stop: 08/17/20 23:53 Last Infusion: 08/17/20 22:50 Dose: 0 mls/hr Documented by: [id number] Admin: 08/17/20 22:05 Dose: 500 mls/hr Documented by: [id number] Ketorolac Tromethamine (Ketorolac Tromethamine 15 Mg/Ml Vial) 15 mg IV NOW STA Stop: 08/17/20 22:49 Last Admin: 08/17/20 23:23 Dose: 15 mg Documented by: [id number] Methylprednisolone (Methylprednisolone 125 Mg/2 Ml Vial) 40 mg IV NOW ONE Stop: 08/17/20 21:01 Last Admin: 03/01/21 21:04 Dose: 40 mg Documented by: [id number] Medical Decision Making Laboratory Data Result diagrams: 08/17/20 18:28 08/17/20 18:28 Lab Results 08/17/20 08/17/20 08/17/20 Range/Units 18:28 18:28 18:28 WBC 18.79 H (4.8-10.8) K/uL RBC 4.40 L (4.7-6.1) M/uL Hgb 13.2 L (14.0-18.0) g/dL Hct 41.3 L (42-52) % MCV 93.9 (80-100) fL MCH 30.0 (25-34) pg MCHC 32.0 (32-36) g/dL RDW Std Deviation 44.9 (36.4-46.3) fL RDW Coeff of Mani 13.0 (11.5-14.5) % Plt Count 251 (130-400) K/uL MPV 10.5 H (7.4-10.4) fL Immature Gran % (Auto) 0.4 % Neut % (Auto) 86.9 % Lymph % (Auto) 6.2 % [place] % (Auto) 6.0 % Eos % (Auto) 0.4 % Baso % (Auto) 0.1 % Neut # (Auto) 16.33 H (1.4-6.5) K/uL Lymph # (Auto) 1.17 L (1.2-3.4) K/uL [place] # (Auto) 1.12 H (0.11-0.59) K/uL Eos # (Auto) 0.07 (0-0.5) K/uL Baso # (Auto) 0.02 (0-0.2) K/uL Immature Gran # (Auto) 0.08 H (0.00-0.02) K/uL PT 10.0 (9.0-12.0) Seconds INR 1.0 (0.9-1.1) APTT 26.2 (21.0-31.0) Seconds PTT Ratio 1.0 ABG pH (7.35-7.45) ABG pCO2 (35-46) mmHg ABG pO2 (80-95) mmHg ABG HCO3 (19-24) mmol/L ABG O2 Saturation (90-95) % ABG Base Excess (-9-1.8) mEq/L [place]ameron Test (Pos) Barometric Pressure mm/Hg Oxygen Given Sodium (136-145) mmol/L Potassium (3.5-5.1) mmol/L Chloride (98-107) mmol/L Carbon Dioxide (21-32) mmol/L Anion Gap (3-11) BUN (7-18) mg/dl Creatinine (0.6-1.4) mg/dl Est Cr Clr Drug Dosing Est GFR ( Amer) Est GFR (Non-Af Amer) BUN/Creatinine Ratio (10-20) Glucose (70-99) mg/dl Lactate 1.2 (0.4-2.0) mmol/L Calcium (8.5-10.1) mg/dl Magnesium (1.8-2.4) mg/dl Total Bilirubin (0.2-1) mg/dl AST (15-37) U/L ALT (12-78) U/L Alkaline Phosphatase (45-117) U/L Troponin I (0-0.045) ng/ml Total Protein (6.4-8.2) gm/dl Albumin (3.4-5.0) gm/dl Globulin (2.5-4.0) gm/dl Albumin/Globulin Ratio (0.9-2) Procalcitonin (0-0.5) ng/ml Nasal Screen MRSA (PCR) (Negative) COVID-19 Eval Order SARS-CoV-2, RNA, NAAT (NEGATIVE) 08/17/20 08/17/20 08/17/20 Range/Units 18:28 18:28 18:45 WBC (4.8-10.8) K/uL RBC (4.7-6.1) M/uL Hgb (14.0-18.0) g/dL Hct (42-52) % MCV (80-100) fL MCH (25-34) pg MCHC (32-36) g/dL RDW Std Deviation (36.4-46.3) fL RDW Coeff of Mani (11.5-14.5) % Plt Count (130-400) K/uL MPV (7.4-10.4) fL Immature Gran % (Auto) % Neut % (Auto) % Lymph % (Auto) % [place] % (Auto) % Eos % (Auto) % Baso % (Auto) % Neut # (Auto) (1.4-6.5) K/uL Lymph # (Auto) (1.2-3.4) K/uL [place] # (Auto) (0.11-0.59) K/uL Eos # (Auto) (0-0.5) K/uL Baso # (Auto) (0-0.2) K/uL Immature Gran # (Auto) (0.00-0.02) K/uL PT (9.0-12.0) Seconds INR (0.9-1.1) APTT (21.0-31.0) Seconds PTT Ratio ABG pH (7.35-7.45) ABG pCO2 (35-46) mmHg ABG pO2 (80-95) mmHg ABG HCO3 (19-24) mmol/L ABG O2 Saturation (90-95) % ABG Base Excess (-9-1.8) mEq/L Kameron Test (Pos) Barometric Pressure mm/Hg Oxygen Given Sodium 136 (136-145) mmol/L Potassium 4.2 (3.5-5.1) mmol/L Chloride 94 L (98-107) mmol/L Carbon Dioxide 36 H (21-32) mmol/L Anion Gap 6.0 (3-11) BUN 16 (7-18) mg/dl Creatinine 0.76 (0.6-1.4) mg/dl Est Cr Clr Drug Dosing Not Reportable Est GFR ( Amer) 114.1 Est GFR (Non-Af Amer) 98.5 BUN/Creatinine Ratio 20.7 H (10-20) Glucose 95 (70-99) mg/dl Lactate (0.4-2.0) mmol/L Calcium 9.7 (8.5-10.1) mg/dl Magnesium 2.3 (1.8-2.4) mg/dl Total Bilirubin 0.3 (0.2-1) mg/dl AST 17 (15-37) U/L ALT 35 (12-78) U/L Alkaline Phosphatase 131 H (45-117) U/L Troponin I < 0.015 (0-0.045) ng/ml Total Protein 7.9 (6.4-8.2) gm/dl Albumin 2.9 L (3.4-5.0) gm/dl Globulin 5.0 H (2.5-4.0) gm/dl Albumin/Globulin Ratio 0.6 L (0.9-2) Procalcitonin 0.26 (0-0.5) ng/ml Nasal Screen MRSA (PCR) (Negative) COVID[facility]19 [email or web address] SARS-[facility]-2, RNA, NAAT (NEGATIVE) 08/17/20 08/17/20 08/17/20 Range/Units 18:45 20:32 21:17 WBC (4.8-10.8) K/uL RBC (4.7-6.1) M/uL Hgb (14.0-18.0) g/dL Hct (42-52) % MCV (80-100) fL MCH (25-34) pg MCHC (32-36) g/dL RDW Std Deviation (36.4-46.3) fL RDW Coeff of Mani (11.5-14.5) % Plt Count (130-400) K/uL MPV (7.4-10.4) fL Immature Gran % (Auto) % Neut % (Auto) % Lymph % (Auto) % [place] % (Auto) % Eos % (Auto) % Baso % (Auto) % Neut # (Auto) (1.4-6.5) K/uL Lymph # (Auto) (1.2-3.4) K/uL [place] # (Auto) (0.11-0.59) K/uL Eos # (Auto) (0-0.5) K/uL Baso # (Auto) (0-0.2) K/uL Immature Gran # (Auto) (0.00-0.02) K/uL PT (9.0-12.0) Seconds INR (0.9-1.1) APTT (21.0-31.0) Seconds PTT Ratio ABG pH 7.33 L (7.35-7.45) ABG pCO2 79 H (35-46) mmHg ABG pO2 112 H (80-95) mmHg ABG HCO3 41 H (19-24) mmol/L ABG O2 Saturation 97.5 H (90-95) % ABG Base Excess 11.7 H (-9-1.8) mEq/L [place] Test Pos (Pos) Barometric Pressure 733.0 mm/Hg Oxygen Given 6% Sodium (136-145) mmol/L Potassium (3.5-5.1) mmol/L Chloride (98-107) mmol/L Carbon Dioxide (21-32) mmol/L Anion Gap (3-11) BUN (7-18) mg/dl Creatinine (0.6-1.4) mg/dl Est Cr Clr Drug Dosing Est GFR ( Amer) Est GFR (Non-Af Amer) BUN/Creatinine Ratio (10-20) Glucose (70-99) mg/dl Lactate (0.4-2.0) mmol/L Calcium (8.5-10.1) mg/dl Magnesium (1.8-2.4) mg/dl Total Bilirubin (0.2-1) mg/dl AST (15-37) U/L ALT (12-78) U/L Alkaline Phosphatase (45-117) U/L Troponin I (0-0.045) ng/ml Total Protein (6.4-8.2) gm/dl Albumin (3.4-5.0) gm/dl Globulin (2.5-4.0) gm/dl Albumin/Globulin Ratio (0.9-2) Procalcitonin (0-0.5) ng/ml Nasal Screen MRSA (PCR) Negative (Negative) COVID-19 Eval Order SARS-CoV-2, RNA, NAAT NEGATIVE (NEGATIVE) Imaging Data Radiologist's Impression: SINGLE VIEW CHEST CLINICAL HISTORY: Dyspnea. FINDINGS: 2 AP, portable, upright chest radiographs are compared to study dated 05/10/2020 and correlated with chest CT dated 05/09/2020. The cardiomediastinal silhouette is unremarkable noting atherosclerotic calcification of the thoracic aorta. Advanced emphysema and chronic interstitial thickening is similar to previous. Patchy airspace opacities are seen in the right mid to lower lung. No large pleural effusion or pneumothorax is seen. The skeletal structures are osteopenic. There are healed bilateral rib fractures. Fusion hardware is noted i n the lower cervical spine. IMPRESSION: 1. Advanced emphysema. 2. Patchy airspace opacities are seen in the right mid to lower lung. Correlate clinically for evidence of pneumonia/aspiration pneumonitis. Radiographic follow-up to resolution is recommended. ACT 112: Negative or not required by law. Electronically signed by: Dc Burt M.D. 08/17/2020 6:20 PM MDM Narrative Patient was seen and evaluated as above in room B2. Review was performed of nursing notes and vital signs. I did review pertinent previous visits and patient history. After obtaining a thorough history and physical examination the above work up was performed. Patient presents to us today with a cough, shortness of breath, with loss of taste. This began about a week ago with rhinorrhea and a cough shortly after being visited by family who then developed similar symptoms. Patient is currently being seen during the COVID-19 pandemic. On arrival the patient has stable vital signs but does appear to be tired. No tripoding, drooling, trismus, stridor or wheezing. Options of care were discussed with the patient. IV access was established. Labs were drawn. Chest x-ray was obtained. There is advanced emphysema. There is also evidence of pneumonia on x-ray which does correlate with the patient's cough with green sputum. EKG was obtained on arrival and reveals normal sinus rhythm at rate of [address] elevation. QTc 402. QRS 76. There is le ukocytosis 18.79 with anemia noting hemoglobin at 13.2. Metabolic panel does not reveal any significant disturbance. Troponin is negative. Pro-Blade he has borderline. Covid testing is negative however I will note that the patient's presentation is concerning to have a component of COVID-19 given symptoms. Patient was placed on 6 L oxygen mask noting hypoxia with nasal cannula and had tremendous improvement. Given pneumonia he was given IV Rocephin and azithromycin. Do believe that further evaluation and management in the inpatient setting is warranted. Do not suspect UT or PE. While in the department, I personally reevaluated the patient and upon subsequent reassessment was resting comfortably and saturating well. Case discussed with the attending physician as well as the hospitalist. Please refer to further documentation regarding his stay. Case was discussed with the attending physician. An order was placed for continuous cardiac monitoring. The monitor shows a rate of 63 with sinus rhythm. GCS: 15 In the evaluation and treatment of this patient, the following differential diagnoses were considered: UT, ASC, Dysrhythmia, Angina, Mediastinitis, GERD, Esophagitis, PE, Pneumonia, Bronchitis, Costochondritis, Rib Fracture, COVID-19, among others. Impression & Plan Pneumonia, Hypoxia Discharge Plan Visit Data Chief Complaint: Shortness of Breath/Dyspnea Stated Complaint: TROUBLE BREATHING, COUGH ED Provider: Joe Gruber ED Midlevel Provider: Nahid Alvarez Discharge Problem: Pneumonia, Hypoxia Patient Disposition: Admitted As Inpatient Condition: Good Discharge Instructions Interventions: ED Discharge Assessment Last Done: 08/18/20 00:44
--- NOTE | 2020-08-17 18:22 | XRay Report ---
SINGLE VIEW CHEST CLINICAL HISTORY: Dyspnea. FINDINGS: 2 AP, portable, upright chest radiographs are compared to study dated 05/10/2020 and correl ated with chest CT dated 05/09/2020. The cardiomediastinal silhouette is unremarkable noting atherosc lerotic calcification of the thoracic aorta. Advanced emphysema and chronic interstitial thickening i s similar to previous. Patchy airspace opacities are seen in the right mid to lower lung. No large pl eural effusion or pneumothorax is seen. The skeletal structures are osteopenic. There are healed bila teral rib fractures. Fusion hardware is noted in the lower cervical spine. IMPRESSION: 1. Advanced emphysema. 2. Patchy airspace opacities are seen in the right mid to lower lung. Correlate clinically for eviden ce of pneumonia/aspiration pneumonitis. Radiographic follow-up to resolution is recommended. ACT 112: Negative or not required by law. Electronically signed by: Dc Burt M.D. 08/17/2020 6:20 PM
[2020-08-17 18:36] LABS: Basophils # (auto) 0.02 K/uL (0-0.2); Basophils % (auto) 0.1 %; Eosinophils # (auto) 0.07 K/uL (0-0.5); Eosinophils % (auto) 0.4 %; Hematocrit (blood only) 41.3 % (42-52); Hemoglobin 13.2 g/dL (14.0-18.0); Immature Granulocytes # (auto) 0.08 K/uL (0.00-0.02); Immature Granulocytes % (auto) 0.4 %; Lymphocytes # (auto) 1.17 K/uL (1.2-3.4); Lymphocytes % (auto) 6.2 %; Mean Corpuscular Volume 93.9 fL (80-100); Mean Platelet Volume 10.5 fL (7.4-10.4); Monocytes # (auto) 1.12 K/uL (0.11-0.59); Neutrophils # (auto) 16.33 K/uL (1.4-6.5); Neutrophils % (auto) 86.9 %; Platelet Count 251 K/uL (130-400); RDW Standard Deviation 44.9 fL (36.4-46.3); White Blood Count 18.79 K/uL (4.8-10.8)
[2020-08-17 18:49] LABS: Partial Thromboplastin Time 26.2 Seconds (21.0-31.0)
[2020-08-17 18:56] LABS: Alanine Aminotransferase 35 U/L (12-78); Albumin Level 2.9 gm/dl (3.4-5.0); Aspartate Aminotransferase 17 U/L (15-37); BUN Creatinine Ratio 20.7 (10-20); Blood Urea Nitrogen 16 mg/dl (7-18); Calcium 9.7 mg/dl (8.5-10.1); Carbon Dioxide 36 mmol/L (21-32); Chloride 94 mmol/L (98-107); Est GFR (African American) 114.1; Est GFR (Non-African American) 98.5; Glucose 95 mg/dl (70-99); Magnesium 2.3 mg/dl (1.8-2.4); Potassium 4.2 mmol/L (3.5-5.1); Sodium 136 mmol/L (136-145)
[2020-08-17 19:01] LABS: Albumin Globulin Ratio 0.6 (0.9-2); Alkaline Phosphatase 131 U/L (45-117); Bilirubin,Total 0.3 mg/dl (0.2-1); Total Protein 7.9 gm/dl (6.4-8.2); Troponin I < 0.015 ng/ml (0-0.045)
[2020-08-17] MEDS ORDERED: cefTRIAXone SODIUM 2,000 MG/70 ML BAG IV STA (19:48)
[2020-08-17] MEDS ORDERED: AZITHROMYCIN 500 MG in DEXTROSE 5% 250 ML IV ONE (19:48)
[2020-08-17] MEDS ORDERED: methylPREDNISolone 40 MG in SYRINGE 0 ML IV STA (20:44)
[2020-08-17] MEDS ORDERED: ALBUT/IPRATROP 3MG/0.5MG NEB 3 ML VIAL NEB STA (20:44)
[2020-08-17] MEDS ORDERED: methylPREDNISolone 125 MG/2 ML VIAL IV ONE (21:00)
[2020-08-17] MEDS ORDERED: PIPERACILL/TAZOBAC CONSULT ACTIVE PRN (21:11)
[2020-08-17] MEDS ORDERED: PIPERACILLIN/TAZOBACTAM 4.5 GM/120 ML BAG IV STA (21:16)
[2020-08-17 21:28] LABS: Base Excess ABG 11.7 mEq/L (-9-1.8); HCO3 ABG 41 mmol/L (19-24); Oxygen Saturation ABG 97.5 % (90-95); PCO2 ABG 79 mmHg (35-46); PO2 ABG 112 mmHg (80-95); pH ABG 7.33 (7.35-7.45)
[2020-08-17 21:29] LABS: Allen Test Pos (Pos)
[2020-08-17] MEDS ORDERED: SODIUM CHLORIDE 0.9% 1000ML 1,000 ML IV ONE (21:54)
--- NOTE | 2020-08-17 22:42 | History & Physical Report ---
Date of Service August 17, 2020 Assessment & Plan (1) Acute and chronic respiratory failure with hypercapnia: Secondary to COPD exacerbation secondary to CAP possible aspiration/esophageal dysfunction given choking symptoms complaints Severe sepsis SIRS plus hypoxemia secondary to above history CVA as per records mood disorder at baseline chronic anemia, hemoglobin better than baseline likely secondary to hemoconcentration chronic pain, history terminated medication use agreement as per records Malnutrition (low BMI) past tobacco abuse Medical telemetry BiPAP Follow-up ABG post BiPAP Cultures, lactic acid Zosyn Aspiration precautions Swallow eval Nebs RTC, steroid course for COPD exacerbation Pulmonary consult if without improvement Judicious narcotic use given history terminated medication use agreement outpatient. Nutrition consult already low BMI DVT prophylaxis. Heparin subcu Full code Total critical care time was 45 minutes. Text document was generated using [employer] voice recognition software. It may contain grammatical or spelling errors. Kindly contact undersigned for clarification of any documentation item in question. History of Present Illness Chief Complaint: Cough, shortness of breath Primary Care Provider: Chris Diaz DO History obtained from patient and records. Medical history significant for chronic respiratory failure secondary to COPD on home O2, history CVA as per records, mood disorder, chronic anemia (baseline hemoglobin 11), chronic pain, past tobacco abuse. Last confinement April 2020 for multifocal pneumonia, sepsis, COPD exacerbation status post endotracheal intubation. Few days history of junky cough symptoms productive cough green sputum preceded by rhinorrhea. Occasional choking symptoms. Worsening shortness of breath. Achy chest pain with coughing. No known recent COVID-19 contacts but was exposed to some family members with respiratory tract infection. At the ER, patient noted to be hypoxemic and in respiratory distress. Patient given ceftriaxone and azithromycin at the ER for pneumonia. Medical History as above Surgical History : Breast lump removal, neck surgery, femoral fracture surgery, tonsillectomy/adenectomy, left shoulder surgery Family History : Alcoholism, heart disease, colon cancer Personal/Social history : Past tobacco abuse, no EtOH intake, disabled Allergies Allergy/AdvReac Type Severity Reaction Status Date / Time No Known Allergies Allergy Verified 08/17/20 19:02 Home Medications Medication Instructions Recorded Confirmed Type ipratropium-albuterol 3 ml INHALATION Q4H PRN 03/20/19 08/17/20 History tizanidine [Zanaflex] 2 mg PO Q8H PRN 03/20/19 08/17/20 History albuterol sulfate [Ventolin HFA] 2 puff INHALATION Q4H PRN 04/05/20 08/17/20 History aspirin [Aspirin Low Dose] 81 mg PO DAILY 04/05/20 08/17/20 History umeclidinium-vilanterol [Anoro 1 inh INHALATION DAILY #60 ea 05/12/20 08/17/20 Rx Ellipta] clonazepam 1 mg PO TID 08/17/20 08/17/20 History codeine-guaifenesin [Guaiatussin 5 ml PO Q4H PRN 08/17/20 08/17/20 History AC] doxepin 10 mg PO HS 08/17/20 08/17/20 History mirtazapine 45 mg PO HS 08/17/20 08/17/20 History sertraline [Zoloft] 200 mg PO HS 08/17/20 08/17/20 History Past Med/Surg History Medical History (Updated 08/18/20 @ 06:27 by Wild Cameron MD) Anxiety Bipolar disorder Chronic pain COPD (chronic obstructive pulmonary disease) H/O: CVA (cerebrovascular accident) Tobacco use disorder Surgical History History of cervical spinal surgery History of hip surgery Family History Other Heart disease Social History Smoking Status: Current every day smoker Tobacco Type: Cigarettes Cigarettes Per Day: 5; Hx Alcohol Use: No Preferred Language: Beninese Communication Ability: Effective Folded Cloth Taper Required: No Beliefs That Will Affect Care: None Current Living Situation: Spouse Current Living Situation Comment: , Daughter, son in law, 2 grand children Feels Safe at Home: Yes Safety Concerns: Feels Safe At This Time Assistive Devices: BiPap, Cane and Glasses Review of Systems Review of Systems: As per HPI, all 10 systems reviewed, all other ROS negative Physical Exam Physical Exam: GENERAL: Slightly uncomfortable, respiratory distress, underweight SKIN: Pallor , warm HEENT: Pale palpebral conjunctivae, no ptosis, dry buccal mucosa, nasal cannula in place NECK : Supple, no tenderness CHEST : Decreased breath sounds, diffuse expiratory wheezes, no tenderness HEART : RRR, no obvious murmurs ABDOMEN: Some distention, nontender EXTREMITIES : No LE swelling/tenderness, no other conspicuous deformities noted NEUROLOGIC : Coherent, no facial asymmetry, no other gross focality Results & Data Results & Data ([facility]) Vital Signs (Past 12 Hours) Vital Signs Temp Pulse Pulse Resp BP Pulse Ox 08/17/20 22:00 70 17 107/70 100 08/17/20 21:30 70 9 L 89/61 L 99 08/17/20 21:23 71 20 103/63 99 08/17/20 21:15 70 10 L 80/58 L 100 08/17/20 21:00 77 16 93/72 L 100 08/17/20 20:56 76 18 100 08/17/20 20:33 70 16 92/64 L 100 08/17/20 20:31 71 22 92/64 L 100 08/17/20 20:15 70 20 94/66 L 100 08/17/20 20:00 71 16 104/68 100 08/17/20 19:45 71 17 106/68 99 08/17/20 19:30 72 18 109/70 99 08/17/20 19:15 71 18 108/70 99 08/17/20 19:00 76 19 125/80 99 08/17/20 18:59 81 L 08/17/20 18:45 75 17 130/85 86 L 08/17/20 18:30 75 16 110/78 89 L 08/17/20 18:15 77 21 126/76 81 L 08/17/20 18:00 81 L 08/17/20 16:40 36.6 C 78 20 114/73 99 Laboratory Results Laboratory Results WBC 18.79 K/uL (4.8-10.8) H 08/17/20 18:28 RBC 4.40 M/uL (4.7-6.1) L 08/17/20 18:28 Hgb 13.2 g/dL (14.0-18.0) L 08/17/20 18:28 Hct 41.3 % (42-52) L 08/17/20 18:28 MCV 93.9 fL (80-100) 08/17/20 18:28 MCH 30.0 pg (25-34) 08/17/20 18:28 MCHC 32.0 g/dL (32-36) 08/17/20 18: RDW Std Deviation 44.9 fL (36.4-46.3) 08/17/20 18: RDW Coeff of Mani 13.0 % (11.5-14.5) 08/17/20 18: Plt Count 251 K/uL (130-400) 08/17/20 18: MPV 10.5 fL (7.4-10.4) H 08/17/20 18: Immature Gran % (Auto) 0.4 % 08/17/20 18: Neut % (Auto) 86.9 % 08/17/20 18: Lymph % (Auto) 6.2 % 08/17/20 18: [place] % (Auto) 6.0 % 08/17/20 18: Eos % (Auto) 0.4 % 08/17/20 18: Baso % (Auto) 0.1 % 08/17/20 18: Neut # (Auto) 16.33 K/uL (1.4-6.5) H 08/17/20 18: Lymph # (Auto) 1.17 K/uL (1.2-3.4) L 08/17/20 18: [place] # (Auto) 1.12 K/uL (0.11-0.59) H 08/17/20 18: Eos # (Auto) 0.07 K/uL (0-0.5) 08/17/20 18: Baso # (Auto) 0.02 K/uL (0-0.2) 08/17/20 18: Immature Gran # (Auto) 0.08 K/uL (0.00-0.02) H 08/17/20 18: PT 10.0 Seconds (9.0-12.0) 08/17/20 18: INR 1.0 (0.9-1.1) 08/17/20 18: APTT 26.2 Seconds (21.0-31.0) 08/17/20 18: PTT Ratio 1.0 08/17/20 18: ABG pH 7.33 (7.35-7.45) L 08/17/20 21: ABG pCO2 79 mmHg (35-46) H 08/17/20 21:17 ABG pO2 112 mmHg (80-95) H 08/17/20 21:17 ABG HCO3 41 mmol/L (19-24) H 08/17/20 21:17 ABG O2 Saturation 97.5 % (90-95) H 08/17/20 21:17 ABG Base Excess 11.7 mEq/L (-9-1.8) H 08/17/20 21:17 [place] Test Pos (Pos) 08/17/20 21:17 Barometric Pressure 733.0 mm/Hg 08/17/20 21:17 Oxygen Given 6% 08/17/20 21:17 Sodium 136 mmol/L (136-145) 08/17/20 18:28 Potassium 4.2 mmol/L (3.5-5.1) 08/17/20 18:28 Chloride 94 mmol/L (98-107) L 08/17/20 18:28 Carbon Dioxide 36 mmol/L (21-32) H 08/17/20 18:28 Anion Gap 6.0 (3-11) 08/17/20 18:28 BUN 16 mg/dl (7-18) 08/17/20 18:28 Creatinine 0.76 mg/dl (0.6-1.4) 08/17/20 18:28 Est Cr Clr Drug Dosing Not Reportable 08/17/20 18:28 Est GFR ( Amer) 114.1 08/17/20 18:28 Est GFR (Non-Af Amer) 98.5 08/17/20 18:28 BUN/Creatinine Ratio 20.7 (10-20) H 08/17/20 18:28 Glucose 95 mg/dl (70-99) 08/17/20 18:28 Lactate 1.2 mmol/L (0.4-2.0) 08/17/20 18:28 Calcium 9.7 mg/dl (8.5-10.1) 08/17/20 18:28 Magnesium 2.3 mg/dl (1.8-2.4) 08/17/20 18:28 Total Bilirubin 0.3 mg/dl (0.2-1) 08/17/20 18:28 AST 17 U/L (15-37) 08/17/20 18:28 ALT 35 U/L (12-78) 08/17/20 18:28 Alkaline Phosphatase 131 U/L (45-117) H 08/17/20 18:28 Troponin I < 0.015 ng/ml (0-0.045) 08/17/20 18:28 Total Protein 7.9 gm/dl (6.4-8.2) 08/17/20 18:28 Albumin 2.9 gm/dl (3.4-5.0) L 08/17/20 18:28 Globulin 5.0 gm/dl (2.5-4.0) H 08/17/20 18:28 Albumin/Globulin Ratio 0.6 (0.9-2) L 08/17/20 18:28 Procalcitonin 0.26 ng/ml (0-0.5) 08/17/20 18:28 Nasal Screen MRSA (PCR) Negative (Negative) 08/17/20 20:32 [facility] 08/17/20 18:45 SARS-CoV-2, RNA, NAAT NEGATIVE (NEGATIVE) 08/17/20 18:45 Diagnostic Findings Chest x-ray : 1. Advanced emphysema. 2. Patchy airspace opacities are seen in the right mid to lower lung. Correlate clinically for evidence of pneumonia/aspiration pneumonitis. Radiographic follow-up to resolution is recommended. EKG as per my interpretation : Rate 75, NSR, normal axis, T wave flattening lateral and septal leads
[2020-08-17] MEDS ORDERED: KETOROLAC TROMETHAMINE 15 MG/ML VIAL IV STA (22:48)
[2020-08-18] MEDS ORDERED: ACETAMINOPHEN 325 MG TAB PO PRN (00:52)
[2020-08-18] MEDS ORDERED: traMADol HCL 50 MG TABLET PO PRN (00:52)
[2020-08-18] MEDS ORDERED: clonazePAM 1 MG TAB PO PRN (00:52)
[2020-08-18] MEDS ORDERED: PROMETHAZINE HCL 6.25 MG in SODIUM CHLORIDE 0.9% 50 ML IV PRN (00:52)
[2020-08-18] MEDS ORDERED: PATIENT'S HEIGHT AND/OR WEIGHT NEEDED SCH (01:00)
[2020-08-18] MEDS: LACTATED RINGER'S 1,000 ML IV SCH ×2 (01:28→14:24)
[2020-08-18 01:33] LABS: Base Excess ABG 12.3 mEq/L (-9-1.8); HCO3 ABG 40 mmol/L (19-24); PCO2 ABG 66 mmHg (35-46); PO2 ABG 86 mmHg (80-95)
[2020-08-18 01:37] LABS: Allen Test POS (Pos)
[2020-08-18] MEDS: SERTRALINE HCL 100 MG TABLET PO SCH ×2 (02:15→21:24)
[2020-08-18] MEDS: MIRTAZAPINE SOLTAB 15 MG PO SCH ×2 (02:15→21:23)
[2020-08-18] MEDS: clonazePAM 1 MG TAB PO SCH ×4 (02:16→21:27)
[2020-08-18] MEDS: PIPERACILLIN/TAZOBACTAM 3.375 GM in DEXTROSE 5% 100 ML IV SCH ×3 (02:29→17:08)
[2020-08-18 06:04] LABS: Basophils # (auto) 0.01 K/uL (0-0.2); Basophils % (auto) 0.1 %; Hematocrit (blood only) 37.5 % (42-52); Hemoglobin 11.8 g/dL (14.0-18.0); Immature Granulocytes # (auto) 0.03 K/uL (0.00-0.02); Immature Granulocytes % (auto) 0.3 %; Lymphocytes # (auto) 0.65 K/uL (1.2-3.4); Lymphocytes % (auto) 5.8 %; Mean Corpuscular Hemoglobin 29.4 pg (25-34); Mean Corpuscular Hgb Conc 31.5 g/dL (32-36); Mean Corpuscular Volume 93.3 fL (80-100); Mean Platelet Volume 10.7 fL (7.4-10.4); Monocytes # (auto) 0.29 K/uL (0.11-0.59); Monocytes % (auto) 2.6 %; Neutrophils # (auto) 10.32 K/uL (1.4-6.5); Neutrophils % (auto) 91.2 %; Platelet Count 282 K/uL (130-400); RDW Standard Deviation 44.7 fL (36.4-46.3); Red Blood Count 4.02 M/uL (4.7-6.1)
[2020-08-18 06:37] LABS: Calcium 9.1 mg/dl (8.5-10.1); Est GFR (African American) 112.9; Est GFR (Non-African American) 97.4; Potassium 4.4 mmol/L (3.5-5.1)
[2020-08-18] MEDS: ALBUT/IPRATROP 3MG/0.5MG NEB 3 ML VIAL NEB SCH ×4 (07:21→18:35)
[2020-08-18] MEDS ORDERED: ENOXAPARIN INJ 30 MG/0.3 ML SYR SQ SCH (09:00)
--- NOTE | 2020-08-18 09:40 | Electrocardiogram Report ---
Test Reason : Blood Pressure : / mmHG Vent. Rate : 077 BPM Atrial Rate : 077 BPM P-R Int : 120 ms QRS Dur : 076 ms QT Int : 356 ms P-R-T Axes : 053 080 067 degrees QTc Int : 402 ms Normal sinus rhythm Early repolarization Otherwise Normal ECG When compared with ECG of 10-MAY-2020 07:03, Non-specific change in ST segment in Inferior leads Nonspecific T wave abnormality no longer evident in Inferior leads T wave inversion no longer evident in Anterolateral leads Confirmed by Tone Penny ([id number]) on 08/18/2020 9:40:48 AM Referred By: REFERRED SELF Confirmed By:Tone Penny
[2020-08-18] MEDS: ASPIRIN 81 MG ECTAB PO SCH (10:03)
[2020-08-18] MEDS: predniSONE 20 MG TAB PO SCH (10:04)
--- NOTE | 2020-08-18 11:37 | Hospitalist Progress Note ---
Date of Service August 18, 2020 Assessment & Plan (1) Acute and chronic respiratory failure with hypercapnia: Patient is 60-year-old male with a past medical history of advanced COPD, chronic hypoxic respiratory failure on 2 L of nasal cannula, CVA, bipolar disorder, chronic anemia, chronic pain and active tobacco user presented to the ED with worsening shortness of breath. Acute COPD exacerbation Community-acquired pneumonia/possible aspiration SIRS on admission history CVA as per records mood disorder at baseline chronic anemia, hemoglobin better than baseline likely secondary to hemoconcentration chronic pain, history terminated medication use agreement as per records Malnutrition (low BMI) Active tobacco user This morning patient is doing okay. Was on the BiPAP overnight. Currently on 3 L of nasal cannula. At baseline uses 2 L of nasal cannula. We will continue with Zosyn for now. Aspiration precautions and swallow eval is pending. Continue with bronchodilators. Continue with prednisone 40 mg daily. Continue with Zosyn. If clinically deteriorates, would consider pulmonary medicine input. (2) COPD (chronic obstructive pulmonary disease): (3) Pneumonia: Continue with Zosyn. (4) Chronic respiratory failure with hypoxia: Uses 2 L of nasal cannula at baseline. 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 (7) H/O: CVA (cerebrovascular accident): No new concerns. (8) Anxiety: (9) DVT prophylaxis: Continue with heparin Admission and Anticipated Discharge Date Admission Date: August 17, 2020 Subjective Patient was sleeping prior to my arrival. Patient did not appear to be in any distress oriented x3 was on BiPAP overnight. Crrently on 3 L of nasal cannula. Reports shortness of breath is improved. Does have productive cough. Denies any chest pain or palpitations. Abdominal pain, diarrhea or dysuria. Review of Systems Review of Systems: All systems reviewed & are unremarkable except as noted in HPI & below Physical Exam Physical Exam: General: Does not appear to be in any distress, oriented x3 HENT: NCAT, MMM, EOMI Eyes: PERRLA Neck: Supple, normal range of motion CVS: normal rate and rhythm Resp: b/l coarse breath sounds Abdomen: Soft, distended and nontender Extremities: Absence of any edema Neuro: No gross focal deficits appreciated Skin: warm and dry, no rashes/lesions/errythema MSK: normal ROM, no joint swelling/erythema Results & Data Results & Data ([facility]) Vital Signs (Past 12 Hours) Vital Signs Temp Pulse Pulse Resp BP BP Pulse Ox 08/18/20 10:35 66 18 96 08/18/20 07:51 36.6 C 65 18 117/75 97 08/18/20 07:29 61 18 98 08/18/20 03:58 36.5 C 67 20 138/80 96 08/18/20 03:24 75 25 H 96 08/18/20 02:53 68 08/18/20 00:55 36.7 C 63 18 110/69 91 08/18/20 00:47 65 22 91 08/18/20 00:32 66 22 98/60 L 96 08/18/20 00:00 67 19 109/62 95 08/17/20 23:30 69 18 97/66 L 95 (1) COPD (chronic obstructive pulmonary disease) COPD type: unspecified COPD Qualified Code(s): J44.9 - Chronic obstructive pulmonary disease, unspecified
[2020-08-18] MEDS: HEPARIN SOD 5,000 UNIT/0.5 ML VIAL SQ SCH ×2 (13:28→21:24)
[2020-08-18] MEDS ORDERED: SERTRALINE HCL 100 MG TABLET PO SCH (21:00)
[2020-08-18] MEDS ORDERED: MIRTAZAPINE SOLTAB 15 MG PO SCH (21:00)
[2020-08-19] MEDS: PIPERACILLIN/TAZOBACTAM 3.375 GM in DEXTROSE 5% 100 ML IV SCH ×2 (01:55→09:07)
[2020-08-19] MEDS: ALBUT/IPRATROP 3MG/0.5MG NEB 3 ML VIAL NEB SCH ×5 (02:06→19:26)
[2020-08-19] MEDS: HEPARIN SOD 5,000 UNIT/0.5 ML VIAL SQ SCH ×3 (06:02→21:10)
[2020-08-19] MEDS: ASPIRIN 81 MG ECTAB PO SCH (09:00)
[2020-08-19] MEDS: predniSONE 20 MG TAB PO SCH (09:00)
[2020-08-19] MEDS: clonazePAM 1 MG TAB PO SCH ×3 (09:07→20:34)
--- NOTE | 2020-08-19 11:07 | Hospitalist Progress Note ---
Date of Service August 19, 2020 Assessment & Plan (1) Acute and chronic respiratory failure with hypercapnia: Patient is 60-year-old male with a past medical history of advanced COPD, chronic hypoxic respiratory failure on 2 L of nasal cannula, CVA, bipolar disorder, chronic anemia, chronic pain and active tobacco user presented to the ED with worsening shortness of breath. Acute COPD exacerbation Community-acquired pneumonia/possible aspiration SIRS on admission history CVA as per records mood disorder at baseline chronic anemia, hemoglobin better than baseline likely secondary to hemoconcentration chronic pain, history terminated medication use agreement as per records Malnutrition (low BMI) Active tobacco user Labs checked This morning patient is doing okay. Was on the BiPAP overnight. Currently on 3 L of nasal cannula. At baseline uses 2 L of nasal cannula. We will continue with Zosyn for now. Aspiration precautions and swallow eval is pending. Continue with bronchodilators. Continue with prednisone 40 mg daily. Change to Unasyn and Zmax. If clinically deteriorates, pulmonary medicine eval. ROS-No Headache, No Visual Changes, No Nausea, No Vomiting, No Fever, No Chills, No Neck Pain or Stiffness, No Chest Pain, No Palpitations, + SOB, + JASON, + Cough, No Sputum, + Wheezing, No Abdominal Pain, No Diarrhea, No Hematemesis, No Hemoptysis, No Unexpected Weight Loss, No Flank pain, No Melena, No Hematochezia, No Frequency, No Urgency, No Burning, No Hematuria, No Rashes, No Diaphoresis. Appetite is Normal Physical Exam Gen-AAO x 3, NAD, Afebrile Head-NCAT, EOMI, PERRLA, Anicteric Sclera, No Posterior Pharyngeal Erythema Neck-Supple, No JVD, No Thyromegaly, No Masses, No LAD, No Bruits Lungs-Bilateral Wheezing, No Crepitus, -RR Chest-No S4, +S1, +S2, No S3, No Murmurs, No Rubs, No Gallops, No Ectopy Abdomen-Soft, Bowel Sounds Present, Non Tender, Non Distended, No Hepatomegaly, No Splenomegaly, No Palpable Masses, No Rebound, No Rigidity, No Guarding Musculoskeletal-Full Range of Motion Bilaterally, No CVAT Extremities-No Cyanosis, No Clubbing, No Edema Nuero-Cranial Nerves II-XII grossly intact, Motor WNL, DTRs WNL, Strength WNL, Non Focal Psych-Normal Mood (2) COPD (chronic obstructive pulmonary disease): (3) Pneumonia: Continue with Zosyn. (4) Chronic respiratory failure with hypoxia: Uses 2 L of nasal cannula at baseline. 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 (7) H/O: CVA (cerebrovascular accident): No new concerns. (8) Anxiety: (9) DVT prophylaxis: Continue with heparin Admission and Anticipated Discharge Date Admission Date: August 17, 2020 Results & Data Results & Data ([facility]) Vital Signs (Past 12 Hours) Vital Signs Temp Pulse Pulse Resp BP Pulse Ox 08/19/20 08:02 73 18 98 08/19/20 07:21 36.4 C L 57 L 18 127/77 99 08/19/20 07:00 59 L 08/19/20 03:14 36.8 C 83 20 138/81 96 08/19/20 02:07 66 16 97 08/19/20 00:21 66 20 91 08/18/20 23:58 75 08/18/20 23:29 36.9 C 69 18 119/56 L 94 (1) COPD (chronic obstructive pulmonary disease) COPD type: unspecified COPD Qualified Code(s): J44.9 - Chronic obstructive pulmonary disease, unspecified
[2020-08-19] MEDS: AZITHROMYCIN 500 MG in DEXTROSE 5% 250 ML IV SCH (12:39)
[2020-08-19] MEDS: AMPICILLIN/SULBACTAM SOD 1,500 MG in 0.9 % SODIUM CHLORIDE 100 ML IV SCH (17:37)
[2020-08-19] MEDS: MIRTAZAPINE SOLTAB 15 MG PO SCH (20:35)
[2020-08-19] MEDS: SERTRALINE HCL 100 MG TABLET PO SCH (20:35)
[2020-08-20] MEDS: AMPICILLIN/SULBACTAM SOD 1,500 MG in 0.9 % SODIUM CHLORIDE 100 ML IV SCH ×3 (00:10→11:02)
[2020-08-20] MEDS: HEPARIN SOD 5,000 UNIT/0.5 ML VIAL SQ SCH ×2 (05:59→13:31)
[2020-08-20 06:14] LABS: Hematocrit (blood only) 37.8 % (42-52); Hemoglobin 12.1 g/dL (14.0-18.0); Mean Corpuscular Hemoglobin 29.6 pg (25-34); Mean Corpuscular Volume 92.4 fL (80-100); Platelet Count 276 K/uL (130-400); RDW Coefficient of Variation 13.3 % (11.5-14.5); Red Blood Count 4.09 M/uL (4.7-6.1); White Blood Count 12.55 K/uL (4.8-10.8)
[2020-08-20 06:52] LABS: BUN Creatinine Ratio 20.8 (10-20); Calcium 9.3 mg/dl (8.5-10.1); Creatinine Clr Calc Pharmacy 72.1 ml/min; Est GFR (African American) 105.1; Est GFR (Non-African American) 90.6; Potassium 3.6 mmol/L (3.5-5.1)
--- NOTE | 2020-08-20 07:00 | Hospitalist Progress Note ---
Date of Service August 20, 2020 Assessment & Plan (1) Acute and chronic respiratory failure with hypercapnia: Patient is 60-year-old male with a past medical history of advanced COPD, chronic hypoxic respiratory failure on 2 L of nasal cannula, CVA, bipolar disorder, chronic anemia, chronic pain and active tobacco user presented to the ED with worsening shortness of breath. Acute COPD exacerbation Community-acquired pneumonia/possible aspiration SIRS on admission history CVA as per records mood disorder at baseline chronic anemia, hemoglobin better than baseline likely secondary to hemoconcentration chronic pain, history terminated medication use agreement as per records Malnutrition (low BMI) Active tobacco user Labs checked This morning patient is feeling better. Currently on 2 L of nasal cannula, at baseline. DC home today. Continue with prednisone taper on DC. ROS-No Headache, No Visual Changes, No Nausea, No Vomiting, No Fever, No Chills, No Neck Pain or Stiffness, No Chest Pain, No Palpitations, Less SOB, no JASON, + Cough, No Sputum, + Wheezing, No Abdominal Pain, No Diarrhea, No Hematemesis, No Hemoptysis, No Unexpected Weight Loss, No Flank pain, No Melena, No Hematochezia, No Frequency, No Urgency, No Burning, No Hematuria, No Rashes, No Diaphoresis. Appetite is Normal Physical Exam Gen-AAO x 3, NAD, Afebrile Head-NCAT, EOMI, PERRLA, Anicteric Sclera, No Posterior Pharyngeal Erythema Neck-Supple, No JVD, No Thyromegaly, No Masses, No LAD, No Bruits Lungs-Bilateral Wheezing, No Crepitus, -RR Chest-No S4, +S1, +S2, No S3, No Murmurs, No Rubs, No Gallops, No Ectopy Abdomen-Soft, Bowel Sounds Present, Non Tender, Non Distended, No Hepatomegaly, No Splenomegaly, No Palpable Masses, No Rebound, No Rigidity, No Guarding Musculoskeletal-Full Range of Motion Bilaterally, No CVAT Extremities-No Cyanosis, No Clubbing, No Edema Nuero-Cranial Nerves II-XII grossly intact, Motor WNL, DTRs WNL, Strength WNL, Non Focal Psych-Normal Mood (2) COPD (chronic obstructive pulmonary disease): (3) Pneumonia: Continue with Zosyn. (4) Chronic respiratory failure with hypoxia: Uses 2 L of nasal cannula at baseline. 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 (7) H/O: CVA (cerebrovascular accident): No new concerns. (8) Anxiety: (9) DVT prophylaxis: Continue with heparin Admission and Anticipated Discharge Date Admission Date: August 17, 2020 Results & Data Results & Data ([facility]) Vital Signs (Past 12 Hours) Vital Signs Temp Pulse Pulse Pulse Resp BP BP 08/20/20 04:00 36.5 C 62 18 133/71 08/19/20 23:00 36.7 C 66 18 127/67 08/19/20 22:20 67 08/19/20 19:26 73 18 08/19/20 19:22 37 C 69 16 115/70 Pulse Ox 08/20/20 04:00 96 08/19/20 23:00 98 08/19/20 22:20 08/19/20 19:26 97 08/19/20 19:22 97 (1) COPD (chronic obstructive pulmonary disease) COPD type: unspecified COPD Qualified Code(s): J44.9 - Chronic obstructive pulmonary disease, unspecified
[2020-08-20] MEDS: ALBUT/IPRATROP 3MG/0.5MG NEB 3 ML VIAL NEB SCH ×2 (07:11→11:20)
[2020-08-20] MEDS: predniSONE 20 MG TAB PO SCH (07:54)
[2020-08-20] MEDS: ASPIRIN 81 MG ECTAB PO SCH (07:55)
[2020-08-20] MEDS: clonazePAM 1 MG TAB PO SCH ×2 (08:01→13:30)
--- NOTE | 2020-08-20 09:14 | Discharge Summary ---
Date of Service August 20, 2020 Admission HPI Per Admitting Provider History obtained from patient and records. Medical history significant for chronic respiratory failure secondary to COPD on home O2, history CVA as per records, mood disorder, chronic anemia (baseline hemoglobin 11), chronic pain, past tobacco abuse. Last confinement April 2020 for multifocal pneumonia, sepsis, COPD exacerbation status post endotracheal intubation. Few days history of junky cough symptoms productive cough green sputum preceded by rhinorrhea. Occasional choking symptoms. Worsening shortness of breath. Achy chest pain with coughing. No known recent COVID-19 contacts but was exposed to some family members with respiratory tract infection. At the ER, patient noted to be hypoxemic and in respiratory distress. Patient given ceftriaxone and azithromycin at the ER for pneumonia. Medical History as above Surgical History : Breast lump removal, neck surgery, femoral fracture surgery, tonsillectomy/adenectomy, left shoulder surgery Family History : Alcoholism, heart disease, colon cancer Personal/Social history : Past tobacco abuse, no EtOH intake, disabled Admission Exam Per Admitting Provider GENERAL: Slightly uncomfortable, respiratory distress, underweight SKIN: Pallor , warm HEENT: Pale palpebral conjunctivae, no ptosis, dry buccal mucosa, nasal cannula in place NECK : Supple, no tenderness CHEST : Decreased breath sounds, diffuse expiratory wheezes, no tenderness HEART : RRR, no obvious murmurs ABDOMEN: Some distention, nontender EXTREMITIES : No LE swelling/tenderness, no other conspicuous deformities noted NEUROLOGIC : Coherent, no facial asymmetry, no other gross focality Principal Diagnosis Acute COPD exacerbation Community-acquired pneumonia/possible aspiration SIRS on admission history CVA as per records mood disorder at baseline chronic anemia, hemoglobin better than baseline likely secondary to hemoconcentration chronic pain, history terminated medication use agreement as per records Malnutrition (low BMI) Active tobacco user Labs checked Discharge Exam See below Discharge Data Allergies Allergy/AdvReac Type Severity Reaction Status Date / Time No Known Allergies Allergy Verified 08/17/20 19:02 Consultations 08/17/20 19:57 ED Decision to Admit Stat Current Diagnoses Bipolar disorder, unspecified (08/17/20) Anxiety disorder, unspecified (08/17/20) Other chronic pain (08/17/20) Pneumonia, unspecified organism (08/17/20) Chronic obstructive pulmonary disease, unspecified (08/17/20) Chronic respiratory failure with hypoxia (08/17/20) Acute and chronic respiratory failure with hypercapnia (08/17/20) Encounter for prophylactic measures, unspecified (08/17/20) Personal history of transient ischemic attack (TIA), and cerebral infarction without residual deficits (08/17/20) Allergies No Known Allergies Allergy (Verified 08/17/20 19:02) Height/Weight/Isolation Height 5 ft 11.5 in Weight 59.8 kg Isolation Type Removed Precautions Chemistry 08/20/20 05:45 Sodium 143 Potassium 3.6 Chloride 101 Carbon Dioxide 39 H Anion Gap 3.0 BUN 19 H Creatinine 0.91 Glucose 81 Microbiology 08/19/20 10:45 Sputum, Expectorated Gram Stain - Final 08/19/20 10:45 Sputum, Expectorated Sputum Culture - Pending 08/17/20 18:33 Blood Aerobic Blood Culture - Preliminary No growth in Aerobic bottle after 48 hours. 08/17/20 18:33 Blood Anaerobic Blood Culture - Preliminary No growth in Anaerobic bottle after 48 hours. 08/17/20 18:35 Blood Aerobic Blood Culture - Preliminary No growth in Aerobic bottle after 48 hours. 08/17/20 18:35 Blood Anaerobic Blood Culture - Preliminary No growth in Anaerobic bottle after 48 hours. Hospital Course (1) Acute and chronic respiratory failure with hypercapnia: Patient is 60-year-old male with a past medical history of advanced COPD, chronic hypoxic respiratory failure on 2 L of nasal cannula, CVA, bipolar disorder, chronic anemia, chronic pain and active tobacco user presented to the ED with worsening shortness of breath. Acute COPD exacerbation Community-acquired pneumonia/possible aspiration SIRS on admission history CVA as per records mood disorder at baseline chronic anemia, hemoglobin better than baseline likely secondary to hemoconcentration chronic pain, history terminated medication use agreement as per records Malnutrition (low BMI) Active tobacco user Labs checked This morning patient is feeling better. Currently on 2 L of nasal cannula, at baseline. DC home today. Continue with prednisone taper on DC. ROS-No Headache, No Visual Changes, No Nausea, No Vomiting, No Fever, No Chills, No Neck Pain or Stiffness, No Chest Pain, No Palpitations, Less SOB, no JASON, + Cough, No Sputum, + Wheezing, No Abdominal Pain, No Diarrhea, No Hematemesis, No Hemoptysis, No Unexpected Weight Loss, No Flank pain, No Melena, No Hematochezia, No Frequency, No Urgency, No Burning, No Hematuria, No Rashes, No Diaphoresis. Appetite is Normal Physical Exam Gen-AAO x 3, NAD, Afebrile Head-NCAT, EOMI, PERRLA, Anicteric Sclera, No Posterior Pharyngeal Erythema Neck-Supple, No JVD, No Thyromegaly, No Masses, No LAD, No Bruits Lungs-Bilateral Wheezing, No Crepitus, -RR Chest-No S4, +S1, +S2, No S3, No Murmurs, No Rubs, No Gallops, No Ectopy Abdomen-Soft, Bowel Sounds Present, Non Tender, Non Distended, No Hepatomegaly, No Splenomegaly, No Palpable Masses, No Rebound, No Rigidity, No Guarding Musculoskeletal-Full Range of Motion Bilaterally, No CVAT Extremities-No Cyanosis, No Clubbing, No Edema Nuero-Cranial Nerves II-XII grossly intact, Motor WNL, DTRs WNL, Strength WNL, Non Focal Psych-Normal Mood (2) COPD (chronic obstructive pulmonary disease): (3) Pneumonia: Continue with Zosyn. (4) Chronic respiratory failure with hypoxia: Uses 2 L of nasal cannula at baseline. 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 (7) H/O: CVA (cerebrovascular accident): No new concerns. (8) Anxiety: (9) DVT prophylaxis: Continue with heparin Total Time Total Time Spent Total Time Spent (In Minutes): 45 mins Total Time Includes: Examination of the Patient, Discharge Planning, Medication Reconciliation and Communication With Other Providers Discharge Plan Discharge Items Patient Disposition: Home - Self-Care Reason For Visit: RESP FAILURE Discharge Diagnosis: Acute COPD exacerbation Community-acquired pneumonia/possible aspiration SIRS on admission history CVA as per records mood disorder at baseline chronic anemia, hemoglobin better than baseline likely secondary to hemoconcentration chronic pain, history terminated medication use agreement as per records Malnutrition (low BMI) Active tobacco user Labs checked Condition on Discharge: Good Health Concerns: Relapse of SOB Activity: Resume your previous activity Lifting: Gradually increase as tolerated Bathing: No limitations Sexual Activity: When tolerated Driving/Machine Use: No limitations Non-emergency contact: Primary Care Provider and Neurologist Call non-emergency contact if: you have any medication questions Follow-up/Referrals: Chris Diaz DO [Primary Care Provider] - Diet: Regular Addtl Attending Provider Instructions: None Pending Studies at Discharge: No Stand-Alone Forms: My [facility] [employer], Smoking Cessation Medications and DC Order Prescriptions: New prednisone 20 mg Tablet 40 mg PO DAILY Qty: 12 RF: 0 Continued aspirin [Aspirin Low Dose] 81 mg Tablet,Delayed Release (Dr/Ec) 81 mg PO DAILY RF: 0 albuterol sulfate [Ventolin HFA] 90 mcg/actuation HFA aerosol inhaler 2 puff INHALATION Q4H PRN (Reason: Shortness Of Breath Or Wheezing) RF: 0 doxepin 10 mg capsule 10 mg PO HS RF: 0 mirtazapine 45 mg tablet 45 mg PO HS RF: 0 codeine-guaifenesin [Guaiatussin AC] 10-100 mg/5 mL liquid 5 ml PO Q4H PRN (Reason: Cough) RF: 0 sertraline [Zoloft] 100 mg tablet 200 mg PO HS RF: 0 clonazepam 1 mg tablet 1 mg PO TID RF: 0 ipratropium-albuterol 0.5 mg-3 mg(2.5 mg base)/3 mL solution for nebulization 3 ml inhalation Q4H PRN (Reason: Shortness Of Breath Or Wheezing) RF: 0 tizanidine [Zanaflex] 4 mg tablet 2 mg PO Q8H PRN (Reason: Muscle Spasm) RF: 0 Anoro Ellipta 62.5-25 mcg/actuation blister with device 1 inh inhalation DAILY Qty: 60 RF: 0 Discharge Orders: Discharge Order (Routine); Ordered 08/20/20 Ordered By: Dominguez Nagel Admission Data Admit Date/Time: 08/17/20 22:55 Attending Provider: Dominguez Nagel Admit Provider: Wild Cameron Primary Care Provider: Chris Diaz Other Providers: Wild Cameron
[2020-08-20] MEDS: AZITHROMYCIN 500 MG in DEXTROSE 5% 250 ML IV SCH (11:02)
--- NOTE | 2020-09-04 08:31 | Coding Query ---
CODING QUERY To promote full compliance with coding requirements relating to patient care, provider participation is requested in all cases of sales enablement consultant uncertainty. Please assist us with the question(s) below: Coding Question(s): Sepsis, Severe Sepsis, and SIRS are documented on account. Please clarify below: (x ) Patient has Sepsis ( ) Patient has Severe Sepsis ( ) Patient has SIRS ( ) Other Please Explain: Thank you Harjinder Carrion Principal Diagnosis: "that condition established after study, to be chiefly responsible for occasioning the admission of the patient to the hospital for care." Co-Existing Principal Diagnosis: "when two or more diagnoses equally meet the criteria for principal diagnosis as determined by the circumstances of admission, diagnostic work up, and/or therapy provided, and the Alphabetic Index, Tabular List, or another coding guideline does not provide sequencing direction, any one of the diagnoses may be sequenced first." "When the physician has documented what appears to be a current diagnosis in the body of the record, but has not included the diagnosis in the final diagnostic statement, the physician should be asked whether the diagnosis should be added." (Source Coding [facility] 2 QTR90. p3-4) KAYY
== END 2020-08-20 14:15 | disposition home or self-care (01) | DRG 871 ==
LOC: ED 16:26 → 2N 22:55 → SUATTDRO 22:55 → 2N 08-18 00:44

== ENCOUNTER 2020-09-17 10:25 | Inpatient (IN) ==
[~2020-09-17 10:25] MED LIST changes: +NALOXONE HCL 0.4 MG/1 ML VIAL/CARP ONE; +RAPID SEQUENCE INDUCTION BAG ONE; -ROCURONIUM BROMIDE 10 MG/ML 5 ML VIAL IV ONE
[2020-09-17] MEDS ORDERED: ALBUT/IPRATROP 3MG/0.5MG NEB 3 ML VIAL ONE (10:29)
[2020-09-17] MEDS ORDERED: STAT IV Infusion **Titration per Protocol STA ×2 (10:59→19:00)
[2020-09-17 11:06] LABS: Allen Test Pos (Pos); Base Excess ABG 4.9 mEq/L (-9-1.8); HCO3 ABG 41 mmol/L (19-24); Oxygen Saturation ABG 98.5 % (90-95); PCO2 ABG 148 mmHg (35-46); PO2 ABG 165 mmHg (80-95)
[2020-09-17 11:09] LABS: Basophils # (auto) 0.02 K/uL (0-0.2); Basophils % (auto) 0.1 %; Eosinophils # (auto) 0.02 K/uL (0-0.5); Eosinophils % (auto) 0.1 %; Hemoglobin 14.6 g/dL (14.0-18.0); Immature Granulocytes # (auto) 0.03 K/uL (0.00-0.02); Immature Granulocytes % (auto) 0.2 %; Lymphocytes % (auto) 8.6 %; Mean Corpuscular Hemoglobin 29.9 pg (25-34); Mean Corpuscular Hgb Conc 30.4 g/dL (32-36); Mean Corpuscular Volume 98.4 fL (80-100); Mean Platelet Volume 10.7 fL (7.4-10.4); Monocytes # (auto) 1.79 K/uL (0.11-0.59); Monocytes % (auto) 12.8 %; Neutrophils # (auto) 10.87 K/uL (1.4-6.5); Neutrophils % (auto) 78.2 %; Platelet Count 256 K/uL (130-400); RDW Coefficient of Variation 13.6 % (11.5-14.5); RDW Standard Deviation 48.9 fL (36.4-46.3); Red Blood Count 4.88 M/uL (4.7-6.1); White Blood Count 13.93 K/uL (4.8-10.8)
[2020-09-17 11:10] LABS: pH ABG 7.06 (7.35-7.45)
[2020-09-17] MEDS: propofoL 1,000 MG/100 ML VIAL IV SCH ×3 (11:17→21:19)
--- NOTE | 2020-09-17 11:17 | XRay Report ---
XR chest 1V portable HISTORY: weakness COMPARISON: Chest 08/17/2020. FINDINGS: Endotracheal tube terminates approximately 6.8 cm and the danny. Cervical spinal fusion blair rdware is partially visualized. Old, healed right-sided rib fractures. The lungs are hyperexpanded wi th apical predominant significant changes. No pleural effusions. No pneumothorax. The heart is normal in size. Right lower lobe airspace opacity has almost completely resolved in the interval. Upper lob e interstitial thickening persists. IMPRESSION: 1. Improved aeration within the right lower lobe airspace opacity consistent with a resolving pneumon ia. 2. Endotracheal tube terminates 6.8 cm from the danny. 3. Advanced emphysema and upper lobe interstitial thickening persists. ACT 112: Negative or not required by law. Electronically signed by: Gurinder White M.D. 09/17/2020 11:16 AM
[2020-09-17] MEDS: PROPOFOL BOLUS FROM BAG IV PRN ×2 (11:18→18:56)
[2020-09-17 11:26] LABS: Prothrombin Time 9.7 Seconds (9.0-12.0)
[2020-09-17] MEDS ORDERED: cefTRIAXone SODIUM 1,000 MG/50 ML BAG IV STA (11:28)
[2020-09-17 11:32] LABS: Acetaminophen < 2 ug/ml (10-30); Salicylate 2.4 mg/dl (2.8-20)
[2020-09-17 11:39] LABS: Alanine Aminotransferase 23 U/L (12-78); Albumin Level 3.3 gm/dl (3.4-5.0); Aspartate Aminotransferase 18 U/L (15-37); Blood Urea Nitrogen 15 mg/dl (7-18); Calcium 8.8 mg/dl (8.5-10.1); Carbon Dioxide 40 mmol/L (21-32); Chloride 106 mmol/L (98-107); Creatinine Clr Calc Pharmacy 52.6 ml/min; Est GFR (African American) 94.9; Est GFR (Non-African American) 81.9; Glucose 101 mg/dl (70-99); Magnesium 2.7 mg/dl (1.8-2.4); Potassium 4.8 mmol/L (3.5-5.1); Sodium 143 mmol/L (136-145)
[2020-09-17 11:49] LABS: Appearance Urine Clear (Clear); Bacteria Urine Automated Negative (Negative); Bilirubin Urine Negative (Negative); Blood Urine Negative (Negative); Color Urine Yellow; Epithelial Cell Urine Auto >30 /lpf (0-5); Glucose Urine UA Negative (Negative); Ketones Urine Negative (Negative); Leukocyte Esterase Urine Negative (Negative); Nitrite Urine Negative (Negative); Protein Urine Trace (Negative); RBC Urine Automated 0-4 /hpf (0-4); Specific Gravity Urine 1.016 (1.000-1.030); Urobilinogen Urine Negative (Negative)
[2020-09-17 11:50] LABS: Albumin Globulin Ratio 0.7 (0.9-2); Alkaline Phosphatase 132 U/L (45-117); Bilirubin,Total 0.2 mg/dl (0.2-1); Globulin 4.6 gm/dl (2.5-4.0); Total Protein 7.9 gm/dl (6.4-8.2); Troponin I < 0.015 ng/ml (0-0.045)
--- NOTE | 2020-09-17 11:51 | CT Scan Report ---
CT head/brain wo con CLINICAL HISTORY: 60 years-old Male with ams. Acutely altered mental status TECHNIQUE: Multiple axial CT images of the head were obtained without contrast. A dose lowering tech nique was utilized adhering to the principles of ALARA. CT DOSE: 614.27 mGy.cm COMPARISON: None. FINDINGS: Endotracheal tube with secretions in the airway. No acute intracranial hemorrhage, midline shift, int ra-axial mass, hydrocephalus, territorial ischemia or abnormal extra-axial collection. 9 mm lipoma ab utting the cerebellar tentorium, image 10. The calvarium is intact. The paranasal sinuses, mastoid air cells, and middle ear cavities are clear . IMPRESSION: No acute intracranial abnormality. ACT 112: Negative or not required by law. The above report was generated using voice recognition software. It may contain grammatical, syntax o r spelling errors. Electronically signed by: Kwame Carmen M.D. 09/17/2020 11:49 AM
[2020-09-17 12:00] LABS: Cast Urine Automated >30 /lpf (0-5)
[2020-09-17] MEDS ORDERED: ALBUT/IPRATROP 3MG/0.5MG NEB 3 ML VIAL NEB ONE (12:03)
--- NOTE | 2020-09-17 12:07 | Emergency Department Note ---
Impression & Plan Acute alteration in mental status, Acute exacerbation of chronic obstructive pulmonary disease (COPD), Acute hypercapnic respiratory failure ED Provider Note Provider: Dom Olmos MD DATE OF SERVICE: 09/17/2020 CHIEF COMPLAINT: Unresponsive, respiratory failure HISTORY OF PRESENT ILLNESS: Patient is a 60-year-old gentleman with a past medical history of end-stage COPD, pneumonia, bipolar, by medical record prior overdose presented today via EMS from home after being found unresponsive this morning. Patient found unresponsive on the couch by family per EMS and significant trauma reported by EMS. Total of 6 mg of intranasal Narcan given prior to arrival with minimal change in respiratory status which is initially 4- 6 and approximately 16 and shallow prior to arrival. Assisted with BVM was by EMS. Patient minimally moving and responsive to loud verbal and painful stimuli upon arrival. He is unable to give me a clear history. EMS to provide a bottle of cough medicine of which proximally 150 mL appear to be missing from dispensing yesterday which included codeine/cough medicine mixture. REVIEW OF SYSTEMS: Limited secondary to mental status PAST MEDICAL HISTORY: As noted above from the medical record MEDICATIONS: Reviewed the medication list in the chart SOCIAL HISTORY: Limited secondary to mental status PHYSICAL EXAM: GENERAL: alert to loud verbal stimuli occasionally trying to sit up on the stretcher Head: normocephalic and atraumatic EYES: No injection, discharge or icterus. PERRL NECK: Trachea midline. ENT: Mucous membranes pink and moist. Pharynx without erythema or exudate. LUNGS: Airway patent. No retractions. Breath sounds clear with good air entry bilaterally. HEART: Regular rate and rhythm. No chest wall tenderness with some mildly decreased capillary perfusion in the fingers and toes. ABDOMEN: Soft and non-tender, without guarding or rebound. SKIN: Acyanotic, but cool dry extremities. EXTREMITIES: Without swelling, tenderness or deformity NEUROLOGICAL: Withdraws to pain in all 4 extremities. Some slightly garbled slurred speech when he does talk but difficult to get clear answers. EK bpm normal sinus rhythm without PVC or PAC. Some baseline artifact is noted. No acute ST segment elevation appreciable. Normal QTC. Normal axis. CONTINUOUS CARDIAC MONITORING: was ordered and showed a heart rate of 60s-80s bpm in normal sinus rhythm PDMP was checked. Patient's laboratory studies and imaging reviewed. Differential includes Infection, dehydration, metabolic abnormality, hypo/hyperglycemia, electrolyte disturbance, anemia, hypoxia, cardiac sources, intracerebral event, toxicologic, neurologic, as well as other pathologies. IMPRESSION/MEDICAL DECISION MAKING: Patient presents slightly more responsive than initially per EMS but peers to be in some respiratory failure. Initiated on BiPAP. ABG obtained with significant acidosis and hypercapnia. Patient continues to try to sit up and unable to get a clear history from him. Given the severe ABG findings and his decreased mentation proceeded with intubation. Patient has a POLST stating full treatment if he is not in cardiac arrest. Unable to obtain additional from family at the phone number listed in the chart. Patient did receive a DuoNeb here. Slight leukocytosis appearing resolving pneumonia on on the chest x-ray. Given a dose of Rocephin although seems more likely to be reactive airway disease. Lower suspicion at this time this is acutely sepsis. Ordered a dose of steroids. No alcohol or significant Tylenol noted on labs. UDS pending. Doubt acute PE or ACS. Likely metabolic encephalopathy due to the hypercarbia. Given a dose of steroids. Maintained on a propofol drip for sedation after intubation which he tolerated well. Covid test was ordered. ICU and hospitalist team alerted. Patient was somewhat cold and warmed with a bear hugger here. Patient is a bit difficult to maintain adequate sedation and was given IV fentanyl, IV Versed, and a bolus of ketamine here. DIAGNOSIS: Altered mental status, acute hypercapnic respiratory failure DISPOSITION: Hospitalist will evaluate Attempted to contact the patient's listed in the chart at the number but went directly to voicemail. Critical Care I have personally spent 42 minutes of critical care time in the direct management of this patient. This includes bedside care, interpretation of diagnostic studies, and testing, discussion with consultants, patient, and family members, and other required patient management activities. These 42 minutes is in excess of all separately billable procedures. 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 Beliefs That Will Affect Care: None Current Living Situation: Spouse Current Living Situation Comment: , Daughter, son in law, 2 grand children Feels Safe at Home: Yes Assistive Devices: None Allergies Allergies Allergy/AdvReac Type Severity Reaction Status Date / Time No Known Allergies Allergy Verified 09/17/20 11:44 Home Meds Home Medications Medication Instructions Recorded Confirmed ipratropium-albuterol 3 ml INHALATION Q4H PRN 03/20/19 09/17/20 tizanidine [Zanaflex] 2 mg PO Q8H PRN 03/20/19 09/17/20 albuterol sulfate [Ventolin HFA] 2 puff INHALATION Q4H PRN 04/05/20 09/17/20 aspirin [Aspirin Low Dose] 81 mg PO DAILY 04/05/20 09/17/20 clonazepam 1 mg PO TID 08/17/20 09/17/20 codeine-guaifenesin [Guaiatussin 5 ml PO Q4H PRN 08/17/20 09/17/20 AC] mirtazapine 45 mg PO HS 08/17/20 09/17/20 sertraline [Zoloft] 200 mg PO HS 08/17/20 09/17/20 Previous Rx's Medication Instructions Recorded Anoro Ellipta 1 inh INHALATION DAILY #60 ea 05/12/20 Results & Data (ED) Vital Signs Vital Signs - 24 hr 09/17/20 10:26 09/17/20 10:40 09/17/20 10:41 Temperature 34.7 C L Temperature Source Rectal Pulse Rate 67 64 Pulse Rate [Apical] 64 Pulse Rate from SpO2 Sensor Respiratory Rate 28 H 30 H Respiratory Effort / Characteristics Spontaneous Spontaneous Accessory Muscle Use Retracting Respiratory Depth Normal Normal Retractive Respiratory Pattern Rapid/Shallow Tachypnea Tachypnea Blood Pressure 162/98 H Blood Pressure Mean 119 Pulse Oximetry 100 100 Oxygen Delivery Method BiPAP BiPAP BiPAP Oxygen Flow Rate 6 Fraction of Inspired Oxygen 40 Sepsis Recent Fever Within 48 Hours No Sepsis New/Unexplained Change in Mental Status Yes Sepsis Action Taken by Nursing Physician Notified End-Tidal CO2 09/17/20 11:00 09/17/20 11:01 09/17/20 11:15 Temperature Temperature Source Pulse Rate 77 73 77 Pulse Rate [Apical] Pulse Rate from SpO2 Sensor 72 76 Respiratory Rate 20 Respiratory Effort / Characteristics Respiratory Depth Respiratory Pattern Blood Pressure 131/74 155/99 H Blood Pressure Mean 93 117 Pulse Oximetry 99 100 100 Oxygen Delivery Method Mechanical Vent Mechanical Vent Oxygen Flow Rate Fraction of Inspired Oxygen 40 Sepsis Recent Fever Within 48 Hours Sepsis New/Unexplained Change in Mental Status Sepsis Action Taken by Nursing End-Tidal CO2 66 09/17/20 11:30 09/17/20 11:51 09/17/20 12:00 Temperature 34.7 C L Temperature Source Rectal Pulse Rate 73 75 73 Pulse Rate [Apical] Pulse Rate from SpO2 Sensor 73 75 73 Respiratory Rate Respiratory Effort / Characteristics Respiratory Depth Respiratory Pattern Blood Pressure 173/107 H 172/110 H 162/109 H Blood Pressure Mean 129 130 126 Pulse Oximetry 100 100 100 Oxygen Delivery Method Mechanical Vent Mechanical Vent Oxygen Flow Rate Fraction of Inspired Oxygen Sepsis Recent Fever Within 48 Hours Sepsis New/Unexplained Change in Mental Status Sepsis Action Taken by Nursing End-Tidal CO2 59 45 09/17/20 12:15 Temperature 35.6 C L Temperature Source Pulse Rate 70 Pulse Rate [Apical] Pulse Rate from SpO2 Sensor 70 Respiratory Rate Respiratory Effort / Characteristics Respiratory Depth Respiratory Pattern Blood Pressure 157/104 H Blood Pressure Mean 121 Pulse Oximetry 100 Oxygen Delivery Method Oxygen Flow Rate Fraction of Inspired Oxygen Sepsis Recent Fever Within 48 Hours Sepsis New/Unexplained Change in Mental Status Sepsis Action Taken by Nursing End-Tidal CO2 52 Laboratory Data Result diagrams: 09/17/20 10:44 09/17/20 10:44 Lab Results 09/17/20 09/17/20 09/17/20 Range/Units 10:44 10:44 10:44 WBC 13.93 H (4.8-10.8) K/uL RBC 4.88 (4.7-6.1) M/uL Hgb 14.6 (14.0-18.0) g/dL Hct 48.0 (42-52) % MCV 98.4 (80-100) fL MCH 29.9 (25-34) pg MCHC 30.4 L (32-36) g/dL RDW Std Deviation 48.9 H (36.4-46.3) fL RDW Coeff of Mani 13.6 (11.5-14.5) % Plt Count 256 (130-400) K/uL MPV 10.7 H (7.4-10.4) fL Immature Gran % (Auto) 0.2 % Neut % (Auto) 78.2 % Lymph % (Auto) 8.6 % [place] % (Auto) 12.8 % Eos % (Auto) 0.1 % Baso % (Auto) 0.1 % Neut # (Auto) 10.87 H (1.4-6.5) K/uL Lymph # (Auto) 1.20 (1.2-3.4) K/uL [place] # (Auto) 1.79 H (0.11-0.59) K/uL Eos # (Auto) 0.02 (0-0.5) K/uL Baso # (Auto) 0.02 (0-0.2) K/uL Immature Gran # (Auto) 0.03 H (0.00-0.02) K/uL PT 9.7 (9.0-12.0) Seconds INR 1.0 (0.9-1.1) POC pH (7.35-7.45) POC pCO2 (35-46) mmHg POC pO2 (80-95) mmHg POC HCO3 POC Total CO2 (24-31) mmol/L POC Base Excess ABG pH (7.35-7.45) ABG pCO2 (35-46) mmHg ABG pO2 (80-95) mmHg ABG HCO3 (19-24) mmol/L POC ABG O2 Sat ABG O2 Saturation (90-95) % ABG Base Excess (-9-1.8) mEq/L [place] Test (Pos) Barometric Pressure mm/Hg Oxygen Given Sodium 143 (136-145) mmol/L Potassium 4.8 (3.5-5.1) mmol/L Chloride 106 (98-107) mmol/L Carbon Dioxide 40 H (21-32) mmol/L Anion Gap -3.0 L (3-11) BUN 15 (7-18) mg/dl Creatinine 0.99 (0.6-1.4) mg/dl Est Cr Clr Drug Dosing 52.6 ml/min Est GFR ( Amer) 94.9 Est GFR (Non-Af Amer) 81.9 BUN/Creatinine Ratio 15.0 (10-20) Glucose 101 H (70-99) mg/dl Lactate (0.4-2.0) mmol/L Calcium 8.8 (8.5-10.1) mg/dl Magnesium 2.7 H (1.8-2.4) mg/dl Total Bilirubin 0.2 (0.2-1) mg/dl AST 18 (15-37) U/L ALT 23 (12-78) U/L Alkaline Phosphatase 132 H (45-117) U/L Troponin I < 0.015 (0-0.045) ng/ml Total Protein 7.9 (6.4-8.2) gm/dl Albumin 3.3 L (3.4-5.0) gm/dl Globulin 4.6 H (2.5-4.0) gm/dl Albumin/Globulin Ratio 0.7 L (0.9-2) Procalcitonin (0-0.5) ng/ml TSH 2.060 (0.300-4.500) uIu/ml Urine Color Urine Appearance (Clear) Urine pH (4.5-7.5) Ur Specific [place] (1.000-1.030) Urine Protein (Negative) Urine Glucose (UA) (Negative) Urine Ketones (Negative) Urine Blood (Negative) Urine Nitrite (Negative) Urine Bilirubin (Negative) Urine Urobilinogen (Negative) Ur Leukocyte Esterase (Negative) Urine WBC (Auto) (0-5) /hpf Urine RBC (Auto) (0-4) /hpf U Hyaline Cast (Auto) (0-5) /lpf U Epithel Cells (Auto) (0-5) /lpf Urine Bacteria (Auto) (Negative) Ur Renal Epithelial Cell Granular Casts (0) /lpf Salicylates (2.8-20) mg/dl Urine Opiates Screen (Neg) Ur Methadone, Qual (Neg) Acetaminophen (10-30) ug/ml Urine Barbiturates (Neg) Ur Phencyclidine (PCP) (Neg) U Amphetamin/Meth Scrn (Neg) MDMA (Ecstasy) Screen (Neg) U Benzodiazepines Scrn (Neg) Ur Cocaine Metabolite (Neg) U Marijuana (THC) Screen (Neg) Ethyl Alcohol mg/dL (0-3) mg/dl COVID-19 Eval Order SARS-CoV-2 (PCR) (Negative) Influenza Type A (PCR) (Neg) Influenza Type B (PCR) (Neg) RSV (RT-PCR) (Neg) 09/17/20 09/17/20 09/17/20 Range/Units 10:44 10:44 10:44 WBC (4.8-10.8) K/uL RBC (4.7-6.1) M/uL Hgb (14.0-18.0) g/dL Hct (42-52) % MCV (80-100) fL MCH (25-34) pg MCHC (32-36) g/dL RDW Std Deviation (36.4-46.3) fL RDW Coeff of Mani (11.5-14.5) % Plt Count (130-400) K/uL MPV (7.4-10.4) fL Immature Gran % (Auto) % Neut % (Auto) % Lymph % (Auto) % [place] % (Auto) % Eos % (Auto) % Baso % (Auto) % Neut # (Auto) (1.4-6.5) K/uL Lymph # (Auto) (1.2-3.4) K/uL [place] # (Auto) (0.11-0.59) K/uL Eos # (Auto) (0-0.5) K/uL Baso # (Auto) (0-0.2) K/uL Immature Gran # (Auto) (0.00-0.02) K/uL PT (9.0-12.0) Seconds INR (0.9-1.1) POC pH (7.35-7.45) POC pCO2 (35-46) mmHg POC pO2 (80-95) mmHg POC HCO3 POC Total CO2 (24-31) mmol/L POC Base Excess ABG pH 7.06 L* (7.35-7.45) ABG pCO2 148 H (35-46) mmHg ABG pO2 165 H (80-95) mmHg ABG HCO3 41 H (19-24) mmol/L POC ABG O2 Sat ABG O2 Saturation 98.5 H (90-95) % ABG Base Excess 4.9 H (-9-1.8) mEq/L [place] Test Pos (Pos) Barometric Pressure 731.5 mm/Hg Oxygen Given 40% Sodium (136-145) mmol/L Potassium (3.5-5.1) mmol/L Chloride (98-107) mmol/L Carbon Dioxide (21-32) mmol/L Anion Gap (3-11) BUN (7-18) mg/dl Creatinine (0.6-1.4) mg/dl Est Cr Clr Drug Dosing ml/min Est GFR ( Amer) Est GFR (Non-Af Amer) BUN/Creatinine Ratio (10-20) Glucose (70-99) mg/dl Lactate 0.8 (0.4-2.0) mmol/L Calcium (8.5-10.1) mg/dl Magnesium (1.8-2.4) mg/dl Total Bilirubin (0.2-1) mg/dl AST (15-37) U/L ALT (12-78) U/L Alkaline Phosphatase (45-117) U/L Troponin I (0-0.045) ng/ml Total Protein (6.4-8.2) gm/dl Albumin (3.4-5.0) gm/dl Globulin (2.5-4.0) gm/dl Albumin/Globulin Ratio (0.9-2) Procalcitonin 0.07 (0-0.5) ng/ml TSH (0.300-4.500) uIu/ml Urine Color Urine Appearance (Clear) Urine pH (4.5-7.5) Ur Specific [place] (1.000-1.030) Urine Protein (Negative) Urine Glucose (UA) (Negative) Urine Ketones (Negative) Urine Blood (Negative) Urine Nitrite (Negative) Urine Bilirubin (Negative) Urine Urobilinogen (Negative) Ur Leukocyte Esterase (Negative) Urine WBC (Auto) (0-5) /hpf Urine RBC (Auto) (0-4) /hpf U Hyaline Cast (Auto) (0-5) /lpf U Epithel Cells (Auto) (0-5) /lpf Urine Bacteria (Auto) (Negative) Ur Renal Epithelial Cell Granular Casts (0) /lpf Salicylates (2.8-20) mg/dl Urine Opiates Screen (Neg) Ur Methadone, Qual (Neg) Acetaminophen (10-30) ug/ml Urine Barbiturates (Neg) Ur Phencyclidine (PCP) (Neg) U Amphetamin/Meth Scrn (Neg) MDMA (Ecstasy) Screen (Neg) U Benzodiazepines Scrn (Neg) Ur Cocaine Metabolite (Neg) U Marijuana (THC) Screen (Neg) Ethyl Alcohol mg/dL (0-3) mg/dl COVID-19 Eval Order SARS-CoV-2 (PCR) (Negative) Influenza Type A (PCR) (Neg) Influenza Type B (PCR) (Neg) RSV (RT-PCR) (Neg) 09/17/20 09/17/20 09/17/20 Range/Units 10:44 10:55 10:55 WBC (4.8-10.8) K/uL RBC (4.7-6.1) M/uL Hgb (14.0-18.0) g/dL Hct (42-52) % MCV (80-100) fL MCH (25-34) pg MCHC (32-36) g/dL RDW Std Deviation (36.4-46.3) fL RDW Coeff of Mani (11.5-14.5) % Plt Count (130-400) K/uL MPV (7.4-10.4) fL Immature Gran % (Auto) % Neut % (Auto) % Lymph % (Auto) % [place] % (Auto) % Eos % (Auto) % Baso % (Auto) % Neut # (Auto) (1.4-6.5) K/uL Lymph # (Auto) (1.2-3.4) K/uL [place] # (Auto) (0.11-0.59) K/uL Eos # (Auto) (0-0.5) K/uL Baso # (Auto) (0-0.2) K/uL Immature Gran # (Auto) (0.00-0.02) K/uL PT (9.0-12.0) Seconds INR (0.9-1.1) POC pH 7.02 L* (7.35-7.45) POC pCO2 < 10 L (35-46) mmHg POC pO2 177 H (80-95) mmHg POC HCO3 TNP POC Total CO2 < 5 L* (24-31) mmol/L POC Base Excess TNP ABG pH (7.35-7.45) ABG pCO2 (35-46) mmHg ABG pO2 (80-95) mmHg ABG HCO3 (19-24) mmol/L POC ABG O2 Sat TNP ABG O2 Saturation (90-95) % ABG Base Excess (-9-1.8) mEq/L [place] Test (Pos) Barometric Pressure mm/Hg Oxygen Given Sodium (136-145) mmol/L Potassium (3.5-5.1) mmol/L Chloride (98-107) mmol/L Carbon Dioxide (21-32) mmol/L Anion Gap (3-11) BUN (7-18) mg/dl Creatinine (0.6-1.4) mg/dl Est Cr Clr Drug Dosing ml/min Est GFR ( Amer) Est GFR (Non-Af Amer) BUN/Creatinine Ratio (10-20) Glucose (70-99) mg/dl Lactate (0.4-2.0) mmol/L Calcium (8.5-10.1) mg/dl Magnesium (1.8-2.4) mg/dl Total Bilirubin (0.2-1) mg/dl AST (15-37) U/L ALT (12-78) U/L Alkaline Phosphatase (45-117) U/L Troponin I (0-0.045) ng/ml Total Protein (6.4-8.2) gm/dl Albumin (3.4-5.0) gm/dl Globulin (2.5-4.0) gm/dl Albumin/Globulin Ratio (0.9-2) Procalcitonin (0-0.5) ng/ml TSH (0.300-4.500) uIu/ml Urine Color Urine Appearance (Clear) Urine pH (4.5-7.5) Ur Specific [place] (1.000-1.030) Urine Protein (Negative) Urine Glucose (UA) (Negative) Urine Ketones (Negative) Urine Blood (Negative) Urine Nitrite (Negative) Urine Bilirubin (Negative) Urine Urobilinogen (Negative) Ur Leukocyte Esterase (Negative) Urine WBC (Auto) (0-5) /hpf Urine RBC (Auto) (0-4) /hpf U Hyaline Cast (Auto) (0-5) /lpf U Epithel Cells (Auto) (0-5) /lpf Urine Bacteria (Auto) (Negative) Ur Renal Epithelial Cell Granular Casts (0) /lpf Salicylates 2.4 L (2.8-20) mg/dl Urine Opiates Screen (Neg) Ur Methadone, Qual (Neg) Acetaminophen < 2 L (10-30) ug/ml Urine Barbiturates (Neg) Ur Phencyclidine (PCP) (Neg) U Amphetamin/Meth Scrn (Neg) MDMA (Ecstasy) Screen (Neg) U Benzodiazepines Scrn (Neg) Ur Cocaine Metabolite (Neg) U Marijuana (THC) Screen (Neg) Ethyl Alcohol mg/dL < 3.0 (0-3) mg/dl COVID-19 Eval Order SARS-CoV-2 (PCR) (Negative) Influenza Type A (PCR) (Neg) Influenza Type B (PCR) (Neg) RSV (RT-PCR) (Neg) 09/17/20 09/17/20 09/17/20 Range/Units 11:20 11:37 12:00 WBC (4.8-10.8) K/uL RBC (4.7-6.1) M/uL Hgb (14.0-18.0) g/dL Hct (42-52) % MCV (80-100) fL MCH (25-34) pg MCHC (32-36) g/dL RDW Std Deviation (36.4-46.3) fL RDW Coeff of Mani (11.5-14.5) % Plt Count (130-400) K/uL MPV (7.4-10.4) fL Immature Gran % (Auto) % Neut % (Auto) % Lymph % (Auto) % [place] % (Auto) % Eos % (Auto) % Baso % (Auto) % Neut # (Auto) (1.4-6.5) K/uL Lymph # (Auto) (1.2-3.4) K/uL [place] # (Auto) (0.11-0.59) K/uL Eos # (Auto) (0-0.5) K/uL Baso # (Auto) (0-0.2) K/uL Immature Gran # (Auto) (0.00-0.02) K/uL PT (9.0-12.0) Seconds INR (0.9-1.1) POC pH (7.35-7.45) POC pCO2 (35-46) mmHg POC pO2 (80-95) mmHg POC HCO3 POC Total CO2 (24-31) mmol/L POC Base Excess ABG pH (7.35-7.45) ABG pCO2 (35-46) mmHg ABG pO2 (80-95) mmHg ABG HCO3 (19-24) mmol/L POC ABG O2 Sat ABG O2 Saturation (90-95) % ABG Base Excess (-9-1.8) mEq/L [place] Test (Pos) Barometric Pressure mm/Hg Oxygen Given Sodium (136-145) mmol/L Potassium (3.5-5.1) mmol/L Chloride (98-107) mmol/L Carbon Dioxide (21-32) mmol/L Anion Gap (3-11) BUN (7-18) mg/dl Creatinine (0.6-1.4) mg/dl Est Cr Clr Drug Dosing ml/min Est GFR ( Amer) Est GFR (Non-Af Amer) BUN/Creatinine Ratio (10-20) Glucose (70-99) mg/dl Lactate (0.4-2.0) mmol/L Calcium (8.5-10.1) mg/dl Magnesium (1.8-2.4) mg/dl Total Bilirubin (0.2-1) mg/dl AST (15-37) U/L ALT (12-78) U/L Alkaline Phosphatase (45-117) U/L Troponin I (0-0.045) ng/ml Total Protein (6.4-8.2) gm/dl Albumin (3.4-5.0) gm/dl Globulin (2.5-4.0) gm/dl Albumin/Globulin Ratio (0.9-2) Procalcitonin (0-0.5) ng/ml TSH (0.300-4.500) uIu/ml Urine Color Yellow Urine Appearance Clear (Clear) Urine pH 5.0 (4.5-7.5) Ur Specific [place] 1.016 (1.000-1.030) Urine Protein Trace H (Negative) Urine Glucose (UA) Negative (Negative) Urine Ketones Negative (Negative) Urine Blood Negative (Negative) Urine Nitrite Negative (Negative) Urine Bilirubin Negative (Negative) Urine Urobilinogen Negative (Negative) Ur Leukocyte Esterase Negative (Negative) Urine WBC (Auto) 1-5 (0-5) /hpf Urine RBC (Auto) 0-4 (0-4) /hpf U Hyaline Cast (Auto) >30 H (0-5) /lpf U Epithel Cells (Auto) >30 H (0-5) /lpf Urine Bacteria (Auto) Negative (Negative) Ur Renal Epithelial Cell Not Reportable Granular Casts 1-5 H (0) /lpf Salicylates (2.8-20) mg/dl Urine Opiates Screen Pos H (Neg) Ur Methadone, Qual Neg (Neg) Acetaminophen (10-30) ug/ml Urine Barbiturates Neg (Neg) Ur Phencyclidine (PCP) Neg (Neg) U Amphetamin/Meth Scrn Neg (Neg) MDMA (Ecstasy) Screen Neg (Neg) U Benzodiazepines Scrn Pos H (Neg) Ur Cocaine Metabolite Neg (Neg) U Marijuana (THC) Screen Neg (Neg) Ethyl Alcohol mg/dL (0-3) mg/dl COVID-19 Eval Order [facility] at [facility] SARS-CoV-2 (PCR) (Negative) Influenza Type A (PCR) (Neg) Influenza Type B (PCR) (Neg) RSV (RT-PCR) (Neg) 09/17/20 Range/Units 12:00 WBC (4.8-10.8) K/uL RBC (4.7-6.1) M/uL Hgb (14.0-18.0) g/dL Hct (42-52) % MCV (80-100) fL MCH (25-34) pg MCHC (32-36) g/dL RDW Std Deviation (36.4-46.3) fL RDW Coeff of Mani (11.5-14.5) % Plt Count (130-400) K/uL MPV (7.4-10.4) fL Immature Gran % (Auto) % Neut % (Auto) % Lymph % (Auto) % [place] % (Auto) % Eos % (Auto) % Baso % (Auto) % Neut # (Auto) (1.4-6.5) K/uL Lymph # (Auto) (1.2-3.4) K/uL [place] # (Auto) (0.11-0.59) K/uL Eos # (Auto) (0-0.5) K/uL Baso # (Auto) (0-0.2) K/uL Immature Gran # (Auto) (0.00-0.02) K/uL PT (9.0-12.0) Seconds INR (0.9-1.1) POC pH (7.35-7.45) POC pCO2 (35-46) mmHg POC pO2 (80-95) mmHg POC HCO3 POC Total CO2 (24-31) mmol/L POC Base Excess ABG pH (7.35-7.45) ABG pCO2 (35-46) mmHg ABG pO2 (80-95) mmHg ABG HCO3 (19-24) mmol/L POC ABG O2 Sat ABG O2 Saturation (90-95) % ABG Base Excess (-9-1.8) mEq/L [place] Test (Pos) Barometric Pressure mm/Hg Oxygen Given Sodium (136-145) mmol/L Potassium (3.5-5.1) mmol/L Chloride (98-107) mmol/L Carbon Dioxide (21-32) mmol/L Anion Gap (3-11) BUN (7-18) mg/dl Creatinine (0.6-1.4) mg/dl Est Cr Clr Drug Dosing ml/min Est GFR ( Amer) Est GFR (Non-Af Amer) BUN/Creatinine Ratio (10-20) Glucose (70-99) mg/dl Lactate (0.4-2.0) mmol/L Calcium (8.5-10.1) mg/dl Magnesium (1.8-2.4) mg/dl Total Bilirubin (0.2-1) mg/dl AST (15-37) U/L ALT (12-78) U/L Alkaline Phosphatase (45-117) U/L Troponin I (0-0.045) ng/ml Total Protein (6.4-8.2) gm/dl Albumin (3.4-5.0) gm/dl Globulin (2.5-4.0) gm/dl Albumin/Globulin Ratio (0.9-2) Procalcitonin (0-0.5) ng/ml TSH (0.300-4.500) uIu/ml Urine Color Urine Appearance (Clear) Urine pH (4.5-7.5) Ur Specific [place] (1.000-1.030) Urine Protein (Negative) Urine Glucose (UA) (Negative) Urine Ketones (Negative) Urine Blood (Negative) Urine Nitrite (Negative) Urine Bilirubin (Negative) Urine Urobilinogen (Negative) Ur Leukocyte Esterase (Negative) Urine WBC (Auto) (0-5) /hpf Urine RBC (Auto) (0-4) /hpf U Hyaline Cast (Auto) (0-5) /lpf U Epithel Cells (Auto) (0-5) /lpf Urine Bacteria (Auto) (Negative) Ur Renal Epithelial Cell Granular Casts (0) /lpf Salicylates (2.8-20) mg/dl Urine Opiates Screen (Neg) Ur Methadone, Qual (Neg) Acetaminophen (10-30) ug/ml Urine Barbiturates (Neg) Ur Phencyclidine (PCP) (Neg) U Amphetamin/Meth Scrn (Neg) MDMA (Ecstasy) Screen (Neg) U Benzodiazepines Scrn (Neg) Ur Cocaine Metabolite (Neg) U Marijuana (THC) Screen (Neg) Ethyl Alcohol mg/dL (0-3) mg/dl COVID-19 Eval Order SARS-CoV-2 (PCR) NEGATIVE (Negative) Influenza Type A (PCR) Negative (Neg) Influenza Type B (PCR) Negative (Neg) RSV (RT-PCR) Negative (Neg) Administered Medications Propofol (Diprivan) 1,000 mg in 100 mls @ 8.55 mls/hr IV .[id number] [facility]; Protocol Stop: 09/20/20 10:59 Last Titration: 09/17/20 12:23 Dose: 30 mcg/kg/min, 8.6 mls/hr Documented by: [id number] Admin: 09/17/20 11:17 Dose: 20 mcg/kg/min, 5.7 mls/hr Documented by: [id number] Cosigned by: [id number] Propofol (Propofol Bolus From Bag) 20 mg IV Q5M PRN PRN Reason: Sedation Stop: 09/20/20 10:58 Last Admin: 09/17/20 11:18 Dose: 20 mg Documented by: [id number] Cosigned by: [id number] Discontinued Medications Albuterol (Albut/Ipratrop 3mg/0.5mg Neb 3 Ml Vial) Confirm Administered Dose 12 ml .ROUTE .STK-MED ONE Stop: 09/17/20 10:30 Last Admin: 09/17/20 12:37 Dose: Not Given Documented by: [id number] Albuterol (Albut/Ipratrop 3mg/0.5mg Neb 3 Ml Vial) 12 ml NEB ONE ONE Stop: 09/17/20 12:04 Last Admin: 09/17/20 10:40 Dose: 12 ml Documented by: [id number] Fentanyl Citrate (Fentanyl Citrate 100 Mcg/2 Ml Vial) 100 mcg IV NOW STA Stop: 09/17/20 12:19 Last Admin: 09/17/20 12:23 Dose: 100 mcg Documented by: [id number] Fentanyl Citrate (Fentanyl Citrate 100 Mcg/2 Ml Vial) Confirm Administered Dose 100 mcg .ROUTE .STK-MED ONE Stop: 09/17/20 12:20 Last Admin: 09/17/20 12:22 Dose: Not Given Documented by: [id number] Ceftriaxone Sodium (Rocephin) 1,000 mg in 50 mls @ 100 mls/hr IV NOW STA Stop: 09/17/20 11:57 Last Infusion: 09/17/20 12:38 Dose: 0 mls/hr Documented by: [id number] Admin: 09/17/20 12:10 Dose: 100 mls/hr Documented by: [id number] Ketamine HCl (Ketamine Hcl Inj 50 Mg/Ml 10 Ml Vial) 100 mg IV NOW STA Stop: 09/17/20 12:59 Last Admin: 09/17/20 13:00 Dose: 100 mg Documented by: [id number] Methylprednisolone (Methylprednisolone 125 Mg/2 Ml Vial) 125 mg IV NOW STA Stop: 09/17/20 12:10 Last Admin: 09/17/20 12:22 Dose: 125 mg Documented by: [id number] Midazolam HCl (Midazolam Hcl 5 Mg/Ml 1 Ml Vial) 2 mg IV NOW STA Stop: 09/17/20 12:52 Last Admin: 09/17/20 12:56 Dose: 2 mg Documented by: [id number] Midazolam HCl (Midazolam Hcl 1 Mg/Ml 2ml Vial) Confirm Administered Dose 2 mg .ROUTE .STK-MED ONE Stop: 09/17/20 12:53 Last Admin: 09/17/20 12:56 Dose: Not Given Documented by: [id number] Midazolam HCl (Midazolam Hcl 5 Mg/Ml 1 Ml Vial) 2 mg IV NOW STA Stop: 09/17/20 12:59 Last Admin: 09/17/20 13:18 Dose: Not Given Documented by: [id number] Imaging Data Radiologist's Impression: Chest X-Ray 09/17/20 10:33 XR chest 1V portable HISTORY: weakness COMPARISON: Chest 08/17/2020. FINDINGS: Endotracheal tube terminates approximately 6.8 cm and the danny. Cervical spinal fusion hardware is partially visualized. Old, healed right-sided rib fractures. The lungs are hyperexpanded with apical predominant significant changes. No pleural effusions. No pneumothorax. The heart is normal in size. Right lower lobe airspace opacity has almost completely resolved in the interval. Upper lobe interstitial thickening persists. IMPRESSION: 1. Improved aeration within the right lower lobe airspace opacity consistent with a resolving pneumonia. 2. Endotracheal tube terminates 6.8 cm from the danny. 3. Advanced emphysema and upper lobe interstitial thickening persists. ACT 112: Negative or not required by law. Electronically signed by: Gurinder White M.D. 09/17/2020 11:[address] 09/17/20 10:44 CT head/brain wo con CLINICAL HISTORY: 60 years-old Male with ams. Acutely altered mental status TECHNIQUE: Multiple axial CT images of the head were obtained without contrast. A dose lowering technique was utilized adhering to the principles of ALARA. CT DOSE: 614.27 mGy.cm COMPARISON: None. FINDINGS: Endotracheal tube with secretions in the airway. No acute intracranial hemorrhage, midline shift, intra-axial mass, hydrocephalus, territorial ischemia or abnormal extra-axial collection. 9 mm lipoma abutting the cerebellar tentorium, image 10. The calvarium is intact. The paranasal sinuses, mastoid air cells, and middle ear cavities are clear. IMPRESSION: No acute intracranial abnormality. ACT 112: Negative or not required by law. The above report was generated using voice recognition software. It may contain grammatical, syntax or spelling errors. Electronically signed by: Kwame Carmen M.D. 09/17/2020 11:49 AM Discharge Plan Visit Data Chief Complaint: Respiratory Distress Stated Complaint: UNRESPONSIVE ED Provider: Dom Olmos Discharge Problem: Acute alteration in mental status, Acute exacerbation of chronic obstructive pulmonary disease (COPD), Acute hypercapnic respiratory failure Patient Disposition: Admitted As Inpatient Discharge Instructions Interventions: ED Discharge Assessment Last Done: 09/17/20 13:43
[2020-09-17] MEDS ORDERED: methylPREDNISolone 125 MG/2 ML VIAL IV STA (12:09)
[2020-09-17] MEDS ORDERED: fentaNYL citrate 100 MCG/2 ML VIAL IV STA (12:18)
[2020-09-17 12:19] LABS: Amphetamines+Metham, Urine Neg (Neg); Barbiturates, Urine Neg (Neg); Benzodiazepine, Urine Pos (Neg); Cocaine, Urine Neg (Neg); MDMA (Ecstacy), Urine Neg (Neg); Methadone, Urine Neg (Neg); Opiate, Urine Pos (Neg); Phencyclidine, Urine Neg (Neg)
[2020-09-17] MEDS ORDERED: fentaNYL citrate 100 MCG/2 ML VIAL ONE (12:19)
[2020-09-17 12:28] LABS: iSTAT Arterial Blood Gas pCO2 < 10 mmHg (35-46); iSTAT Arterial Blood Gas pH 7.02 (7.35-7.45); iSTAT Arterial Blood Gas pO2 177 mmHg (80-95); iSTAT Carbon Dioxide < 5 mmol/L (24-31)
--- NOTE | 2020-09-17 12:46 | History & Physical Report ---
Date of Service September 17, 2020 Assessment & Plan (1) Acute on chronic respiratory failure with hypoxia and hypercapnia: (2) Acute respiratory acidosis: (3) Pneumonia: (4) Acute exacerbation of chronic obstructive pulmonary disease (COPD): This is a 60yo M with a PMH of severe COPD, chronic respiratory failure on 3 L nasal cannula, tobacco use disorder, bipolar disorder, anxiety and other medical problems listed below with presents after being found unresponsive by family this morning. Found to be minimally responsive by EMS, intubated in ED ABG respiratory acidosis with pH 7.02, pCO2 148 Intubated; vent management per beer maker CXR with improved aeration within the right lower lobe airspace opacity consistent with a resolving pneumonia Lactic acid and procalcitonin within normal limits. Covid screen negative Continue empiric abx with Zosyn and doxy. MRSA swab pending Continue IV solumedrol for COPD exacerbation Duonebs, continue home inhalers (5) Acute metabolic encephalopathy: In setting of hypercarbia, overdose of analgesic medication CT head without acute intracranial abnormalities (6) Overdose of analgesic: Ingested 2/3 codeine cough syrup bottle that was filled yesterday Ongoing issues with controlled substances, per , who helps by keeping certain medications like Klonopin in locked case Following with palliative care for advanced COPD unsure if intentional overdose may benefit from psychiatric consult later during admission (7) Anxiety: Taking Klonopin TID scheduled at home, managed by (8) Bipolar disorder: More depressed lately, per . Continue SSRI (9) Tobacco use disorder: Smoking cessation education ordered (10) Insomnia: Currently taking Mirtazapine HS DVT Ppx: SQ Lovenox Code status: FULL per discussion of but wants an ongoing discussion during admission PCP: Joe Dispo: Admitted to ICU. Discharge planning ordered. Patient seen in collaboration with Dr. Almodovar. Please see addendum. History of Present Illness Chief Complaint: respiratory distress, lethargy Primary Care Provider: Chris Diaz DO This is a 60yo M with a PMH of severe COPD, chronic respiratory failure on 3 L nasal cannula, tobacco use disorder, bipolar disorder, anxiety and other medical problems listed below with presents after being found unresponsive by family this morning. Obtained history from over the phone. Patient has been in normal state of health except for increased cough over the past few days. Reportedly taking inhalers as scheduled. No fever chills or known sick contacts. Has been sleeping more during the day and has a limited appetite. Still smoking a pack a day of cigarettes. Uses oxygen at home and is able to climb stairs on his own. Does not use bipap machine he was discharged with approximately 6 months ago, per . Went to sleep on the couch around midnight and was found by daughters around 9 AM to be minimally responsive. Had a bottle of cough medicine at home of which approximately 150ml is missing since being dispensed yesterday. EMS was called and respirations were initially 4 per EMS and Narcan was administered with minimal improvement. In ED, patient remained somnolent and was intubated. Unable to obtain ROS due to sedated state. Allergies Allergy/AdvReac Type Severity Reaction Status Date / Time No Known Allergies Allergy Verified 09/17/20 11:44 Home Medications Medication Instructions Recorded Confirmed Type ipratropium-albuterol 3 ml INHALATION Q4H PRN 03/20/19 09/17/20 History tizanidine [Zanaflex] 2 mg PO Q8H PRN 03/20/19 09/17/20 History albuterol sulfate [Ventolin HFA] 2 puff INHALATION Q4H PRN 04/05/20 09/17/20 History aspirin [Aspirin Low Dose] 81 mg PO DAILY 04/05/20 09/17/20 History Anoro Ellipta 1 inh INHALATION DAILY #60 ea 05/12/20 09/17/20 Rx clonazepam 1 mg PO TID 08/17/20 09/17/20 History codeine-guaifenesin [Guaiatussin 5 ml PO Q4H PRN 08/17/20 09/17/20 History AC] mirtazapine 45 mg PO HS 08/17/20 09/17/20 History sertraline [Zoloft] 200 mg PO HS 08/17/20 09/17/20 History Past Med/Surg History Medical History (Updated 09/17/20 @ 14:56 by Dom Olmos M.D.) Anxiety Bipolar disorder Chronic pain COPD (chronic obstructive pulmonary disease) H/O: CVA (cerebrovascular accident) Tobacco use disorder Surgical History History of cervical spinal surgery History of hip surgery Family History Other Heart disease Social History Smoking Status: Current every day smoker Tobacco Type: Cigarettes Cigarettes Per Day: 5; Do You Dip or Chew Tobacco: No; Tobacco Cessation Education Requested by Patient: No Hx Alcohol Use: No Hx Substance Use: Yes Substance Use Type Other:: MEHT IN PER OLD CHART Preferred Language: Pashto Communication Ability: INTUBATED Communication Ability Comment: INTUBATED Marketing Officer Required: No Beliefs That Will Affect Care: None Current Living Situation: Spouse and Family Current Living Situation Comment: , Daughter, son in law, 2 grand children Other Information That Helps Us Care for You: No Feels Safe at Home: Yes Safety Concerns: Feels Safe At This Time Assistive Devices: BiPap, Cane, CPAP, Glasses and Oxygen - Continuous Review of Systems Review of Systems: Unobtainable due to endotracheal tube Physical Exam Physical Exam: General Appearance: WD/WN, vitals as above, thin, appears chronically ill, sedated Head: normocephalic, atraumatic Eyes: normal inspection, PERRL, conjunctivae normal, anicteric sclerae ENT: external ear and nose normal, intubated Neck: normal visual inspection, trachea midline, no thyromegaly Respiratory: normal respiratory effort, lungs clear to auscultation, no wheeze, rales, rhonchi. No accessory muscle use Cardiovascular: regular rate, rhythm, no murmur, normal peripheral pulses, no BLE edema. Vessels: no JVD Chest: normal inspection of chest Abdomen/GI: normal bowel sounds, soft, nontender, no hepatosplenomegaly Extremities/Musculoskeletal: no cyanosis or clubbing, extremities motor strength 5/5 Neurologic/Psychiatric: sedated Skin: no rashes, normal color, warm/dry Results & Data Results & Data ([facility]) Vital Signs (Past 12 Hours) Vital Signs Temp Pulse Pulse Resp BP Pulse Ox 09/17/20 12:31 65 141/96 H 100 09/17/20 12:15 35.6 C L 70 157/104 H 100 09/17/20 12:00 34.7 C L 73 162/109 H 100 09/17/20 11:51 75 172/110 H 100 09/17/20 11:30 73 173/107 H 100 09/17/20 11:15 77 155/99 H 100 09/17/20 11:01 73 131/74 100 09/17/20 11:00 77 20 99 09/17/20 10:40 64 64 30 H 100 09/17/20 10:26 34.7 C L 67 28 H 162/98 H 100 Laboratory Results Short CBC 09/17/20 Range/Units 10:44 WBC 13.93 H (4.8-10.8) K/uL Hgb 14.6 (14.0-18.0) g/dL Hct 48.0 (42-52) % Plt Count 256 (130-400) K/uL BMP 09/17/20 10:44 Sodium 143 Potassium 4.8 Chloride 106 Carbon Dioxide 40 H BUN 15 Creatinine 0.99 Glucose 101 H Calcium 8.8 Cardiac Enzymes 09/17/20 Range/Units 10:44 Troponin I < 0.015 (0-0.045) ng/ml Liver Function 09/17/20 Range/Units 10:44 Total Bilirubin 0.2 (0.2-1) mg/dl AST 18 (15-37) U/L ALT 23 (12-78) U/L Alkaline Phosphatase 132 H (45-117) U/L Albumin 3.3 L (3.4-5.0) gm/dl Urine 09/17/20 Range/Units 11:20 Urine Color Yellow Urine Appearance Clear (Clear) Urine pH 5.0 (4.5-7.5) Ur Specific [place] 1.016 (1.000-1.030) Urine Protein Trace H (Negative) Urine Glucose (UA) Negative (Negative) Diagnostic Findings Head CT: IMPRESSION: No acute intracranial abnormality. CXR: IMPRESSION: 1. Improved aeration within the right lower lobe airspace opacity consistent with a resolving pneumonia. 2. Endotracheal tube terminates 6.8 cm from the danny. 3. Advanced emphysema and upper lobe interstitial thickening persists. Code Status & VTE Plan VTE Prophylaxis Plan VTE Prophylaxis will be ordered: Yes Supervising Physician Co-Signing Physician Notes Patient is a 60-year-old male with advanced COPD, chronic respiratory failure with oxygen dependency, tobacco use disorder and other medical problems was brought to ED and was found to be unresponsive. Patient is currently intubated while in ED and was unable to provide any history. As per EMS, patient took 150 mL of guaifenesin codeine and received 6 doses of Narcan without much help. Please review HPI for complete details of presentation. Patient was found to be hypothermic and was placed on Keri hugger while in ED. Blood work consistent with acute respiratory acidosis with metabolic alkalosis. CT head showed no acute intracranial abnormality. Chest x-ray showed improved aeration within the right lower lobe airspace opacity consistent with resolving pneumonia. Findings also suggestive of advanced emphysema and upper lobe interstitial thickening. His white count is elevated at 13K. On exam patient is thin, frail,+ intubated, no distress, sedated, normocephalic atraumatic, lungs--decreased breath sounds, clear to auscultation, no pedal edema, S1-S2, no murmur, abdomen soft, nontender, normal bowel sounds,+ multiple tattoos. Patient is admitted for management of acute respiratory failure with hypercapnia and hypoxia; acute metabolic encephalopathy. Likely multifactorial secondary to medication overdose, advanced COPD. Possible sepsis but less likely. Start him on IV Solu-Medrol, nebs, empiric IV antibiotics for 48 hrs. beer maker consulted. Continue respiratory support. DVT, GI prophylaxis. Consider psychiatry input when patient able to provide any history post extubation. Blood cultures obtained. Urine toxicology screen. Vent management as per ICU team. I personally reviewed the record. Patient is interviewed and examined at bedside. Patient's care is coordinated with Yajaira Pires PA-C. Please refer to the documentation above for details of patient's presentation and for discussion of other issues. (1) Overdose of analgesic Encounter type: initial encounter Injury intent: undetermined intent Qualified Code(s): T39.94XA - Poisoning by unspecified nonopioid analgesic, antipyretic and antirheumatic, undetermined, initial encounter
[2020-09-17] MEDS ORDERED: MIDAZOLAM HCL 5 MG/ML 1 ML VIAL IV STA ×2 (12:51→12:58)
[2020-09-17] MEDS ORDERED: MIDAZOLAM HCL 1 MG/ML 2ML VIAL ONE (12:52)
[2020-09-17] MEDS ORDERED: KETAMINE HCL INJ 50 MG/ML 10 ML VIAL IV STA (12:58)
[2020-09-17 13:10] LABS: Influenza A virus by PCR Negative (Neg); Influenza B virus by PCR Negative (Neg); RSV by PCR Negative (Neg); SARS CoV2 RNA(COVID-19) InHosp NEGATIVE (Negative)
--- NOTE | 2020-09-17 13:44 | Critical Care Consultation ---
Date of Consultation September 17, 2020 Assessment & Plan (1) Acute respiratory failure: 60-year-old male here with a PMHx significant for severe COPD, chronic respiratory failure, bipolar disorder, anxiety who presented with acute respiratory failure secondary to overdose with codeine/guaifenesin and was subsequently intubated. Neuro CAM ICU: UNABLE TO ASSESS Sedation: Propofol 30mcg/kg/min - Patient currently sedated with propofol as above for intubation. Cardiac - Hemodynamically stable. No cardiac concerns currently. Respiratory - Patient intubated on mechanical ventilation - Will keep intubated for now and possibly do spontaneous breathing trial in the morning - If able to extubate plan to transition directly to BiPAP - SoluMedrol 40mg IV q8h - Duonebs q6h - Elevate HOB to 30 degrees GI - NPO - GI ppx w/ 20 mg p.o. twice daily famotidine - Oral care w/ chlorhexidine Renal/Electrolytes - No renal concerns at present - No significant electrolyte derangement. - Replace electrolytes as needed. - No concerns at this time. ENDO - No concerns at this time. HEME - Stable H&H. ID - Patient had admission for tx of PNA last month - Procalcitonin negative today - Chest imaging showing improved aeration within the RLL airspace opacity consistent with a resolving pneumonia - Monitor fever curve Integumentary - No concerns presently Lines/IV Access - PIV x2 intact DVT Prophylaxis - Lovenox 40mg SQ daily Thank you for allowing us to be part of this patient's care. Please refer to Dr. Garcia's documentation for any further recommendations. (2) Acute and chronic respiratory failure with hypercapnia: Supervising Physician Co-Signing Physician Notes Dr. Foster was the resident-physician during care of patient. I separately evaluated patient for enrique portions of the history and the exam. I was present during the critical portion of medical decision making, and I discussed the case with the resident. I generally agree with the findings and plan except for any additions/exceptions noted. Patient with COPD exacerbation secondary to narcotic overdose. Unclear if this was unintentional. He essentially has end-stage COPD and would benefit from follow-up care consultation. We will place palliative care consult. Ventilation is currently improved with the pH of 7.25 and PCO2 81.9. He was breath stacking on the ventilator and we reduced his respiratory rate from 20-14 with improvement. Hypotension post intubation has also improved. We will continue to monitor his ventilatory status closely. We are increasing his tidal volume to 480 from 450 mL. Continue Solu-Medrol 40 mg 3 times daily for today and likely switch to p.o. prednisone tomorrow. We will aim to perform spontaneous breathing trial tomorrow with sedation vacation and likely extubate. Will extubate directly to BiPAP. I have personally spent 38 minutes of critical care time in the direct managem ent of this patient. This is a life/limb threatening event. This includes time spent evaluating patient, direct bedside care, chart review, placing orders, interpretation of diagnostic studies, discussion with consultants, patient, and/or family members regarding treatment decisions, as well as other required patient management activities. This time is exclusive of all separately billable procedures, and teaching time and separate from and in addition to any other critical care service time. History of Present Illness History of Present Illness Reed Aldrich is a 60-year-old male with PMH of COPD, chronic hypoxic respiratory failure on 2L nasal cannula at home, bipolar disorder, anxiety, CVA who arrived at [facility] via EMS after he took 150mL of guaifenesin/codeine mixture at home. Found unresponsive by family and given a total of 6 mg of intranasal Narcan by EMS with minimal change in respiratory status. In the ED he was found to be slightly more responsive than EMS initially found him but still had altered mental status and respiratory compromise. He was eventually intubated. ABGs prior to intubation showed significant respiratory acidosis with a pH of 7.06 and pCO2 of 148. Patient's has expressed concerns that he may have been attempting to commit suicide, per chart review. Of note, patient has a POLST stating full treatment if he is not in cardiac arrest. ROS unobtainable due to sedation/intubation. Allergies Allergy/AdvReac Type Severity Reaction Status Date / Time No Known Allergies Allergy Verified 09/17/20 11:44 Home Medications Medication Instructions Recorded Confirmed Type ipratropium-albuterol 3 ml INHALATION Q4H PRN 03/20/19 09/17/20 History tizanidine [Zanaflex] 2 mg PO Q8H PRN 03/20/19 09/17/20 History albuterol sulfate [Ventolin HFA] 2 puff INHALATION Q4H PRN 04/05/20 09/17/20 History aspirin [Aspirin Low Dose] 81 mg PO DAILY 04/05/20 09/17/20 History Anoro Ellipta 1 inh INHALATION DAILY #60 ea 05/12/20 09/17/20 Rx clonazepam 1 mg PO TID 08/17/20 09/17/20 History codeine-guaifenesin [Guaiatussin 5 ml PO Q4H PRN 08/17/20 09/17/20 History AC] mirtazapine 45 mg PO HS 08/17/20 09/17/20 History sertraline [Zoloft] 200 mg PO HS 08/17/20 09/17/20 History Patient History Medical History (Updated 09/17/20 @ 14:56 by Dom Olmos M.D.) Anxiety Bipolar disorder Chronic pain COPD (chronic obstructive pulmonary disease) H/O: CVA (cerebrovascular accident) Tobacco use disorder Surgical History History of cervical spinal surgery History of hip surgery Family History Other Heart disease Social History Smoking Status: Current every day smoker Tobacco Type: Cigarettes Cigarettes Per Day: 5; Do You Dip or Chew Tobacco: No; Tobacco Cessation Education Requested by Patient: No Hx Alcohol Use: No Hx Substance Use: Yes Substance Use Type Other:: MEHT IN PER OLD CHART Preferred Language: Swiss Communication Ability: INTUBATED Communication Ability Comment: INTUBATED Skidway Worker Required: No Beliefs That Will Affect Care: None Current Living Situation: Spouse and Family Current Living Situation Comment: , Daughter, son in law, 2 grand children Other Information That Helps Us Care for You: No Feels Safe at Home: Yes Safety Concerns: Feels Safe At This Time Assistive Devices: BiPap, Cane, CPAP, Glasses and Oxygen - Continuous Review of Systems Review of Systems: Unobtainable due to reduced consciousness Physical Exam Constitutional: + mechanically ventilated, + malnourished and + underweight Eyes: PERRL, conjunctivae normal, anicteric sclerae ENMT: Ears: no external ear abnormality Nose: no external nose abnormality Mouth: no oral mucosal abnormality and no dentition abnormality Neck: normal visual inspection Respiratory: Auscultation: + diminished lung sounds and + abnormal I/E ratio; no crackles, no rales, no rhonchi and no wheezes Cardiovascular: RRR, no murmur, no edema Heart Sounds: normal S1 and normal S2 Gastrointestinal (Abdomen): normal bowel sounds, soft, nontender, no hepatosplenomegaly Musculoskeletal: Extremities: no cyanosis and no clubbing Skin: no rashes, warm and dry Results & Data Results & Data ([facility]) Vital Signs (Past 12 Hours) Vital Signs Temp Pulse Pulse Resp BP Pulse Ox 09/17/20 13:30 61 105/76 99 09/17/20 13:20 60 90/69 L 100 09/17/20 13:15 59 L 79/62 L 100 09/17/20 13:14 59 L 80/62 L 100 09/17/20 13:00 36.0 C L 60 101/73 99 09/17/20 12:57 63 130/88 100 09/17/20 12:45 65 144/98 H 100 09/17/20 12:31 65 141/96 H 100 09/17/20 12:15 35.6 C L 70 157/104 H 100 09/17/20 12:00 34.7 C L 73 162/109 H 100 09/17/20 11:51 75 172/110 H 100 09/17/20 11:30 73 173/107 H 100 09/17/20 11:15 77 155/99 H 100 09/17/20 11:01 73 131/74 100 09/17/20 11:00 77 20 99 09/17/20 10:40 64 64 30 H 100 09/17/20 10:26 34.7 C L 67 28 H 162/98 H 100 Resident Activity Tracking Resident Involvement: Resident Care Provided Care Provided: Adult Hospital Medicine (1) Acute respiratory failure Respiratory failure complication: hypoxia and hypercapnia Qualified Code(s): J96.01 - Acute respiratory failure with hypoxia; J96.02 - Acute respiratory failure with hypercapnia
[2020-09-17 14:40] LABS: iSTAT Allen Test Pass; iSTAT Arterial Blood Gas HCO3 35 meg/L (19-24); iSTAT Arterial Blood Gas pCO2 101 mmHg (35-46); iSTAT Arterial Blood Gas pH 7.15 (7.35-7.45); iSTAT Arterial Blood Gas pO2 86 mmHg (80-95); iSTAT Carbon Dioxide 38 mmol/L (24-31); iSTAT FiO2 40 %; iSTAT Site R Radial
[2020-09-17] MEDS ORDERED: ICU PROTOCOL FOR HYPERGLYCEMIA PRN (14:40)
[2020-09-17] MEDS ORDERED: PIPERACILL/TAZOBAC CONSULT ACTIVE PRN (15:11)
[2020-09-17] MEDS ORDERED: PIPERACILLIN/TAZOBACTAM 3.375 GM in DEXTROSE 5% 100 ML IV ONE (15:15)
[2020-09-17] MEDS: ALBUT/IPRATROP 3MG/0.5MG NEB 3 ML VIAL NEB SCH ×2 (15:22→20:07)
--- NOTE | 2020-09-17 15:25 | Billing Data ---
Date of Service September 17, 2020 Coding Level of Care Code Critical Care 1st 30-74 mins Time Spent (min) 38
[2020-09-17 15:27] LABS: iSTAT Allen Test Pass; iSTAT Arterial Blood Gas HCO3 36 meg/L (19-24); iSTAT Arterial Blood Gas pCO2 82 mmHg (35-46); iSTAT Arterial Blood Gas pH 7.25 (7.35-7.45); iSTAT Arterial Blood Gas pO2 63 mmHg (80-95); iSTAT Carbon Dioxide 38 mmol/L (24-31); iSTAT FiO2 30 %; iSTAT Site R Radial
[2020-09-17] MEDS ORDERED: ETOMIDATE 2 MG/ML 20 ML VIAL IV ONE (15:32)
[2020-09-17] MEDS ORDERED: ROCURONIUM BROMIDE 10 MG/ML 5 ML VIAL IV ONE (15:32)
[2020-09-17] MEDS ORDERED: KETAMINE HCL INJ 50 MG/ML 10 ML VIAL IV ONE (15:32)
[2020-09-17] MEDS ORDERED: DOXYCYCLINE HYCLATE 100 MG in DEXTROSE 5% 100 ML IV SCH (16:00)
[2020-09-17] MEDS: ENOXAPARIN INJ 40 MG/0.4 ML SYR SQ SCH (16:10)
[2020-09-17 16:46] LABS: iSTAT Allen Test Pass; iSTAT Arterial Blood Gas HCO3 33 meg/L (19-24); iSTAT Arterial Blood Gas pCO2 65 mmHg (35-46); iSTAT Arterial Blood Gas pH 7.32 (7.35-7.45); iSTAT Arterial Blood Gas pO2 71 mmHg (80-95); iSTAT Carbon Dioxide 35 mmol/L (24-31); iSTAT FiO2 30 %; iSTAT Site R Radial
--- NOTE | 2020-09-17 17:06 | Electrocardiogram Report ---
Test Reason : Blood Pressure : / mmHG Vent. Rate : 066 BPM Atrial Rate : 066 BPM P-R Int : 096 ms QRS Dur : 068 ms QT Int : 406 ms P-R-T Axes : 000 061 054 degrees QTc Int : 425 ms Poor data quality, interpretation may be adversely affected Sinus rhythm When compared with ECG of 17-AUG-2020 18:41, No significant change was found Confirmed by Stan Guzman ([id number]) on 09/17/2020 5:06:37 PM Referred By: REFERRED SELF Confirmed By:Den Guzman
[2020-09-17] MEDS: methylPREDNISolone 40 MG in SYRINGE 0 ML IV SCH (17:57)
[2020-09-17] MEDS ORDERED: PROPOFOL BOLUS FROM BAG IV PRN (19:00)
[2020-09-17] MEDS ORDERED: PIPERACILLIN/TAZOBACTAM 3.375 GM in DEXTROSE 5% 100 ML IV SCH (20:00)
[2020-09-17] MEDS: FAMOTIDINE 20 MG in SYRINGE 3 ML IV SCH (21:19)
[2020-09-18] MEDS: ALBUT/IPRATROP 3MG/0.5MG NEB 3 ML VIAL NEB SCH ×4 (02:35→10:36)
[2020-09-18] MEDS: methylPREDNISolone 40 MG in SYRINGE 0 ML IV SCH ×2 (03:19→08:02)
[2020-09-18 04:51] LABS: Hematocrit (blood only) 39.8 % (42-52); Hemoglobin 12.5 g/dL (14.0-18.0); Mean Corpuscular Hemoglobin 29.3 pg (25-34); Mean Corpuscular Hgb Conc 31.4 g/dL (32-36); Mean Corpuscular Volume 93.2 fL (80-100); Mean Platelet Volume 10.7 fL (7.4-10.4); Platelet Count 202 K/uL (130-400); RDW Coefficient of Variation 13.4 % (11.5-14.5); RDW Standard Deviation 45.9 fL (36.4-46.3); Red Blood Count 4.27 M/uL (4.7-6.1); White Blood Count 12.09 K/uL (4.8-10.8)
[2020-09-18 05:16] LABS: BUN Creatinine Ratio 21.8 (10-20); Calcium 8.4 mg/dl (8.5-10.1); Creatinine Clr Calc Pharmacy 67.1 ml/min; Est GFR (African American) 97.3; Est GFR (Non-African American) 83.9; Phosphorus 2.5 mg/dl (2.5-4.9)
[2020-09-18] MEDS: propofoL 1,000 MG/100 ML VIAL IV SCH (07:05)
[2020-09-18] MEDS: FAMOTIDINE 20 MG in SYRINGE 3 ML IV SCH (08:02)
[2020-09-18] MEDS: ENOXAPARIN INJ 40 MG/0.4 ML SYR SQ SCH (08:02)
--- NOTE | 2020-09-18 10:13 | XRay Report ---
XR chest 1V portable HISTORY: 60 years-old Male eval for pna acute shortness of breath COMPARISON: Chest radiograph 09/17/2020, CTA chest 05/09/2020 TECHNIQUE: Portable upright AP view of the chest FINDINGS: Interval extubation. Advanced emphysema with chronic interstitial coarsening. No pneumothorax, pleura l effusion, new airspace consolidation or overt pulmonary edema. Near complete resolution of the righ t lower lobe airspace opacities. Healed chronic right-sided rib fracture deformities. Cervical spinal fusion hardware. IMPRESSION: 1. Interval extubation. 2. Emphysema with chronic interstitial coarsening. ACT 112: Negative or not required by law. The above report was generated using voice recognition software. It may contain grammatical, syntax o r spelling errors. Electronically signed by: Kwame Carmen M.D. 09/18/2020 10:12 AM
--- NOTE | 2020-09-18 10:14 | Critical Care Progress Note ---
Date of Service September 18, 2020 Assessment & Plan (1) Acute respiratory failure: 60-year-old male here with a PMHx significant for severe COPD, chronic respiratory failure, bipolar disorder, anxiety who presented with acute respiratory failure secondary to overdose with codeine/guaifenesin and was subsequently intubated. Neuro CAM ICU: Negative Sedation: None - Patient extubated overnight and off sedation. Neurologically intact, no current concerns. Cardiac - Hemodynamically stable. No cardiac concerns currently. Respiratory - Patient extubated overnight and saturating well on 3L NC - Continue SoluMedrol 40mg IV q8h, can possibly transition to PO steroids tomorrow - Duonebs q6h - Repeat CXR - Restart Anoro Ellipta inhaler GI - Advance diet as tolerated--currently on full liquids - GI ppx w/ Protonix - Oral care w/ chlorhexidine Renal/Electrolytes - No renal concerns at present - No significant electrolyte derangement. - Replace electrolytes as needed. - No concerns at this time. ENDO - No concerns at this time. HEME - Stable H&H. ID - Patient had admission for tx of PNA last month - Procalcitonin negative yesterday, will recheck procal today - Chest imaging showing improved aeration within the RLL airspace opacity consistent with a resolving pneumonia--repeat CXR today - Monitor fever curve Psych - Patient denying suicidal ideation, plan, or intent - Evaluated by psych liaison and also denying to them - Restart home Zoloft and mirtazapine - Restart Klonopin at 0.5mg TID Integumentary - No concerns presently Lines/IV Access - PIV x2 intact DVT Prophylaxis - Lovenox 40mg SQ daily Thank you for allowing us to be part of this patient's care. Please refer to Dr. Garcia's documentation for any further recommendations. (2) Acute and chronic respiratory failure with hypercapnia: Admission and Anticipated Discharge Date Admission Date: September 17, 2020 Supervising Physician Co-Signing Physician Notes The resident-physician during care of patient. I separately evaluated patient for enrique portions of the history and the exam. I was present during the critical portion of medical decision making, and I discussed the case with the resident. I generally agree with the findings and plan except for any additions/exceptions noted. Patient is substantially improved today. Extubated yesterday evening. Chest x- ray procalcitonin ordered given low-grade fever. We will follow up on imaging and lab. No concerns for suicidal ideation at this time. Evaluated by psych. We will restart his benzodiazepine at half the dose given his hypercapnic respiratory failure. Continue IV Solu-Medrol for today and transition to prednisone tomorrow. Stable for transfer to floor. Subjective Patient seen at bedside and reports feeling overall well, only mentions some discomfort in his throat. Requests restarting his usual psych meds. Discussed in multidisciplinary rounds. Likely transfer out of ICU if he continues to do well. Review of Systems Review of Systems: All systems reviewed & are unremarkable except as noted in Subjective Physical Exam Constitutional: + malnourished and + underweight; no acute distress Eyes: PERRL, conjunctivae normal, anicteric sclerae ENMT: Ears: no external ear abnormality Nose: no external nose abnormality Mouth: no oral mucosal abnormality Neck: normal visual inspection Respiratory: Auscultation: lungs clear to auscultation bilaterally and + wheezes; no crackles, no rales and no rhonchi Cardiovascular: RRR, no murmur, no edema Heart Sounds: normal S1 and normal S2 Gastrointestinal (Abdomen): normal bowel sounds, soft, nontender, no hepatosplenomegaly Musculoskeletal: no cyanosis or clubbing, extremities motor strength 5/5 Skin: no rashes, warm and dry Neurologic: CN's II-XI intact bilaterally, moves all extremities and awake Speech / Cognition: normal speech Psychiatric: Orientation: alert and oriented x 3 Suicidal Thoughts: denies suicidal thoughts, denies suicidal plan and denies suicidal intent Results & Data Results & Data ([facility]) Vital Signs (Past 12 Hours) Vital Signs Temp Pulse Pulse Resp BP BP Pulse Ox 09/18/20 08:00 37.7 C H 66 74 19 114/82 94 09/18/20 07:33 71 16 97 09/18/20 07:14 95 09/18/20 07:13 37.9 C H 70 16 105/68 94 09/18/20 07:07 37.8 C H 75 15 114/81 95 09/18/20 06:00 37.8 C H 67 09/18/20 05:51 37.8 C H 68 112/64 09/18/20 05:00 37.8 C H 69 09/18/20 04:00 37.9 C H 68 93 04/02/21 03:13 38.1 C H 72 105/58 L 94 09/18/20 03:00 38.1 C H 76 93 09/18/20 02:40 77 14 95 09/18/20 02:13 37.9 C H 72 121/64 93 09/18/20 02:00 37.9 C H 74 92 09/18/20 01:13 37.9 C H 73 123/70 94 09/18/20 01:00 37.9 C H 72 95 09/18/20 00:43 38.0 C H 73 118/65 94 09/18/20 00:13 38.0 C H 73 107/64 95 09/18/20 00:00 38.0 C H 75 96 09/17/20 23:43 38.1 C H 71 116/66 95 09/17/20 23:13 38.1 C H 76 122/68 95 09/17/20 23:00 38.0 C H 73 95 09/17/20 22:43 38.0 C H 74 96/74 L 97 09/17/20 22:13 38.1 C H 72 118/71 96 Resident Activity Tracking Resident Involvement: Resident Care Provided Care Provided: Adult Hospital Medicine (1) Acute respiratory failure Respiratory failure complication: hypoxia and hypercapnia Qualified Code(s): J96.01 - Acute respiratory failure with hypoxia; J96.02 - Acute respiratory failure with hypercapnia
[2020-09-18] MEDS ORDERED: UMECLIDINIUM/VILANTEROL 62.5/25MCG 7 PUFFS/INHALER INH ONE (10:15)
[2020-09-18] MEDS ORDERED: clonazePAM 0.5 MG TAB PO ONE (10:15)
--- NOTE | 2020-09-18 10:55 | Billing Data ---
Date of Service September 18, 2020 Coding Level of Care Code 46508 Initial Inpt Care Lvl 3
[2020-09-18] MEDS ORDERED: clonazePAM 0.5 MG TAB PO STA (13:45)
[2020-09-18] MEDS ORDERED: ALBUT/IPRATROP 3MG/0.5MG NEB 3 ML VIAL NEB PRN (13:50)
--- NOTE | 2020-09-18 13:54 | Palliative Care Consultation ---
Date of Consultation September 18, 2020 Assessment & Plan (1) Palliative care encounter: I spoke with him about his experience. He tells me he has no memory of this incident until the tube was removed "and it hurt like hell". We talked about whether he would want to have that done again. He told me that he would consider that on a short term basis since it kept him alive in this particular case but would not want it manager terminal. I asked him if there were other limitations to what he would want for his care and he told me that he wouldn't want to be cut open under any circumstances. I spoke with Cynthia Conwayner about his apparent change in his goals. She has an established relationship with her and will be following up after discharge. For the time being, he will remain full code during his stay here and she will discuss further with him as an outpatient. Discussed with Dr. Garcia. History of Present Illness Reason for Consultation: goals of care Requesting Physician: Dr. Foster Attending Physician: Sandi Benedict MD History of Present Illness 60 yo gentleman with advanced COPD and chronic respiratory failure. He is oxygen dependent on 3L at baseline. He tells me that he is independent at home. He does have some dyspnea on exertion but in general does not feel that he has limitations. He is frustrated with multiple readmissions for pneumonia and tells me that he doesn't understand why he keeps getting sick. Per his history and physical, he continues to smoke 1 ppd despite his lung disease. He was admitted yesterday with acute hypoxic respiratory failure after being found unresponsive at home. At the time he was found, his respiratory rate was 4 / min. He was intubated for a short time and has since been extubated and is on O2 via NC He has a h/o chronic pain and has had problems with misuse of medications in the past. According to report, he had a partially empty bottle of cough syrup at home that had just been filled yesterday. His UDS was positive for opioids. He does see SOPHIA Sandoval for outpatient palliative care in [place]. He was referred by his psychiatrist. Cynthia met with him in July and completed a POLST form which indicates DNR/DNI with otherwise full treatment. He was intubated in the ER per his 's instruction. Allergies Allergy/AdvReac Type Severity Reaction Status Date / Time No Known Allergies Allergy Verified 09/17/20 11:44 Home Medications Medication Instructions Recorded Confirmed Type ipratropium-albuterol 3 ml INHALATION Q4H PRN 03/20/19 09/17/20 History tizanidine [Zanaflex] 2 mg PO Q8H PRN 03/20/19 09/17/20 History albuterol sulfate [Ventolin HFA] 2 puff INHALATION Q4H PRN 04/05/20 09/17/20 History aspirin [Aspirin Low Dose] 81 mg PO DAILY 04/05/20 09/17/20 History Anoro Ellipta 1 inh INHALATION DAILY #60 ea 05/12/20 09/17/20 Rx clonazepam 1 mg PO TID 08/17/20 09/17/20 History codeine-guaifenesin [Guaiatussin 5 ml PO Q4H PRN 08/17/20 09/17/20 History AC] mirtazapine 45 mg PO HS 08/17/20 09/17/20 History sertraline [Zoloft] 200 mg PO HS 08/17/20 09/17/20 History Patient History Medical History (Updated 09/18/20 @ 14:32 by Cherelle Connolly MD) Anxiety Bipolar disorder Chronic pain COPD (chronic obstructive pulmonary disease) H/O: CVA (cerebrovascular accident) Tobacco use disorder Surgical History History of cervical spinal surgery History of hip surgery Family History Other Heart disease Social History Smoking Status: Current every day smoker Tobacco Type: Cigarettes Cigarettes Per Day: 5; Second Hand Exposure: No (UNKNOWN); Do You Dip or Chew Tobacco: No; Tobacco Cessation Education Requested by Patient: No Hx Alcohol Use: No Hx Substance Use: Yes Substance Use Type Other:: MEHT IN PER OLD CHART Preferred Language: Amharic Communication Ability: INTUBATED Communication Ability Comment: INTUBATED Architectural Draftsperson Required: No Beliefs That Will Affect Care: None Current Living Situation: Spouse and Family Current Living Situation Comment: , Daughter, son in law, 2 grand children Other Information That Helps Us Care for You: No Feels Safe at Home: Yes Safety Concerns: Feels Safe At This Time Assistive Devices: BiPap, Cane, CPAP, Glasses and Oxygen - Continuous Review of Systems Review of Systems: Godwin Symptom Assessment Scale Pain 1/3 Dyspnea 0/3 Fatigue 0/3 Nausea 0/3 Anxiety 2/3 Drowsiness 0/3 Palliative Performance Score 60% Physical Exam Constitutional: + thin and + disheveled; no acute distress ENMT: Mouth: + dry oral mucous membranes Respiratory: normal respiratory effort; no labored breathing Cardiovascular: Rate/Rhythm: regular rate and regular rhythm Gastrointestinal (Abdomen): Inspection/Auscultation: abdomen not distended Musculoskeletal: Extremities: extremities normal to inspection Neurologic: awake; not confused Psychiatric: Orientation: alert and oriented x 3 Affect: + anxious affect Mood: + angry mood Results & Data ([facility]) Vital Signs (Past 12 Hours) Vital Signs Temp Pulse Pulse Resp BP BP Pulse Ox 09/18/20 12:00 100.0 F H 85 19 96/62 L 93 09/18/20 11:13 100.0 F H 75 23 89/64 L 94 09/18/20 11:00 100.2 F H 77 21 95 09/18/20 10:37 78 16 93 09/18/20 10:14 100.0 F H 77 22 95 09/18/20 10:13 100.0 F H 78 17 106/65 94 09/18/20 10:00 100.0 F H 75 17 94 09/18/20 09:13 100.0 F H 74 18 98/63 L 96 09/18/20 08:14 99.9 F H 75 18 93/65 L 93 09/18/20 08:00 99.9 F H 66 74 19 114/82 94 09/18/20 07:33 71 16 97 09/18/20 07:14 95 09/18/20 07:13 100.2 F H 70 16 105/68 94 09/18/20 07:07 100.0 F H 75 15 114/81 95 09/18/20 06:00 100.0 F H 67 09/18/20 05:51 100.0 F H 68 112/64 09/18/20 05:00 100.0 F H 69 09/18/20 04:00 100.2 F H 68 93 04/21 03:13 100.6 F H 72 105/58 L 94 09/18/20 03:00 100.6 F H 76 93 09/18/20 02:40 77 14 95 09/18/20 02:13 100.2 F H 72 121/64 93 09/18/20 02:00 100.2 F H 74 92 PG Care Time/CCT Total # of Minutes Spent Total Time Spent with Patient: Total time spent is greater than 50% in coordination of care (as documented) at patient's floor/unit and/or counseling patient: total time spent 60 minutes with more than 50% of time spent on goals of care, code status and coordination of care. Coding Level of Care Code 46709 Inpt Consult Level 3 Diagnoses Palliative care encounter Z51.5
[2020-09-18] MEDS: clonazePAM 0.5 MG TAB PO SCH ×2 (14:15→20:50)
--- NOTE | 2020-09-18 14:19 | Hospitalist Progress Note ---
Date of Service September 18, 2020 Assessment & Plan (1) Acute on chronic respiratory failure with hypoxia and hypercapnia: (2) Acute respiratory acidosis: (3) Pneumonia: (4) Acute exacerbation of chronic obstructive pulmonary disease (COPD): This is a 60yo M with a PMH of severe COPD, chronic respiratory failure on 3 L nasal cannula, tobacco use disorder, bipolar disorder, anxiety and other medical problems listed below with presents after being found unresponsive by family this morning. Found to be minimally responsive by EMS, ABG respiratory acidosis with pH 7.02, pCO2 148 / intubated in ED appreciate input from It Director successfully extubated , on 2 L 02 ( his baseline ) CXR with improved aeration within the right lower lobe airspace opacity consistent with a resolving pneumonia Lactic acid and procalcitonin within normal limits. abx d/louise Covid screen negative - stable to be transferred to Medical floor no audible wheeze , DC iV solumedrol PO prednisone odered (5) Acute metabolic encephalopathy: In setting of hypercarbia due to overdose of analgesic medication CT head without acute intracranial abnormalities mental status at baseline , post extubation conversing normally , able to answer all questions (6) Overdose of analgesic: Ingested 2/3 codeine cough syrup bottle that was filled yesterday Ongoing issues with controlled substances, per , who helps by keeping certain medications like Klonopin in locked case Following with palliative care for advanced COPD -consulted , appreciate input pt should not be prescribed any narcotics or sedative Meds in (7) Anxiety: Taking Klonopin TID scheduled at home, managed by home meds resumed (8) Bipolar disorder: More depressed lately, per . Continue SSRI Psych consult requested (9) Tobacco use disorder: Smoking cessation education ordered (10) Insomnia: Mirtazapine HS DVT Ppx: SQ Lovenox Code status: FULL Code Dispo: transfer to medical floor today updated over phone Admission and Anticipated Discharge Date Admission Date: September 17, 2020 Subjective Follow up visit for acute hypoxemic resp failure /accidental overdose on med/advanced COPD pt was extubated yesterday doing well since on 2 L 02 via nasal canula ( his baseline ) has non productive cough no SOB no fever or chills denies of any suicidal ideation , have no recollection of taking extra amount of cough syrup ( hycodan ) leading to respiratory failure /intubation /ICU admission P Review of Systems Review of Systems: All systems reviewed & are unremarkable except as noted in Subjective Physical Exam Physical Exam: Physical exam: General: No acute distress, alert awake oriented x3/thin Ill appearing HEENT: PERRLA, EOMI,/ani icteric sclera Heart: Regular S1-S2, no carotid bruit, no JVD, no lower extremity edema Lungs: diminished, no audible wheeze Abdomen: Soft nontender, no organomegaly Extremity: No cyanosis, no deformity, normal strength 5 out of 5 with upper and lower Neuro: No focal neurological deficit normal speech, normal visual field, Motor strength : normal both upper and lower extremity, sensation intact Psych: Alert awake oriented x3, normal affect Results & Data Results & Data ([facility]) Vital Signs (Past 12 Hours) Vital Signs Temp Pulse Pulse Resp BP BP Pulse Ox 09/18/20 12:00 37.8 C H 85 19 96/62 L 93 09/18/20 11:13 37.8 C H 75 23 89/64 L 94 09/18/20 11:00 37.9 C H 77 21 95 09/18/20 10:37 78 16 93 09/18/20 10:14 37.8 C H 77 22 95 09/18/20 10:13 37.8 C H 78 17 106/65 94 09/18/20 10:00 37.8 C H 75 17 94 09/18/20 09:13 37.8 C H 74 18 98/63 L 96 09/18/20 08:14 37.7 C H 75 18 93/65 L 93 09/18/20 08:00 37.7 C H 66 74 19 114/82 94 09/18/20 07:33 71 16 97 09/18/20 07:14 95 09/18/20 07:13 37.9 C H 70 16 105/68 94 09/18/20 07:07 37.8 C H 75 15 114/81 95 09/18/20 06:00 37.8 C H 67 09/18/20 05:51 37.8 C H 68 112/64 09/18/20 05:00 37.8 C H 69 09/18/20 04:00 37.9 C H 68 93 09/18/20 03:13 38.1 C H 72 105/58 L 94 09/18/20 03:00 38.1 C H 76 93 09/18/20 02:40 77 14 95 (1) Overdose of analgesic Encounter type: initial encounter Injury intent: undetermined intent Qualified Code(s): T39.94XA - Poisoning by unspecified nonopioid analgesic, antipyretic and antirheumatic, undetermined, initial encounter
[2020-09-18] MEDS ORDERED: BENZONATATE 100 MG CAPSULE PO PRN (16:40)
[2020-09-18] MEDS: guaiFENesin 600 MG TABCR PO SCH (20:51)
[2020-09-18] MEDS: tiZANidine HCL 4 MG TABLET PO PRN (20:51)
[2020-09-18] MEDS ORDERED: MIRTAZAPINE TAB 15 MG TAB PO SCH (21:00)
[2020-09-18] MEDS ORDERED: SERTRALINE HCL 100 MG TABLET PO SCH ×2 (21:00)
[2020-09-19 06:14] LABS: Hematocrit (blood only) 41.6 % (42-52); Hemoglobin 13.7 g/dL (14.0-18.0); Mean Corpuscular Hgb Conc 32.9 g/dL (32-36); Mean Platelet Volume 10.6 fL (7.4-10.4); Platelet Count 250 K/uL (130-400); RDW Coefficient of Variation 13.8 % (11.5-14.5); RDW Standard Deviation 46.6 fL (36.4-46.3); Red Blood Count 4.57 M/uL (4.7-6.1); White Blood Count 12.67 K/uL (4.8-10.8)
[2020-09-19 06:51] LABS: BUN Creatinine Ratio 24.7 (10-20); Creatinine Clr Calc Pharmacy 65.7 ml/min; Est GFR (African American) 94.9; Est GFR (Non-African American) 81.9; Potassium 3.5 mmol/L (3.5-5.1)
[2020-09-19] MEDS: clonazePAM 0.5 MG TAB PO SCH ×2 (08:37→13:41)
[2020-09-19] MEDS: guaiFENesin 600 MG TABCR PO SCH (08:38)
[2020-09-19] MEDS: tiZANidine HCL 4 MG TABLET PO PRN (08:39)
[2020-09-19] MEDS: ENOXAPARIN INJ 40 MG/0.4 ML SYR SQ SCH (08:41)
[2020-09-19] MEDS ORDERED: predniSONE 20 MG TAB PO SCH (09:00)
[2020-09-19] MEDS ORDERED: UMECLIDINIUM/VILANTEROL 62.5/25MCG 7 PUFFS/INHALER INH SCH ×2 (09:00)
[2020-09-19] MEDS ORDERED: ASPIRIN 81 MG ECTAB PO SCH (09:00)
--- NOTE | 2020-09-19 12:06 | Psychiatric Consultation ---
Date of Consultation September 19, 2020 Impression / Recommendations Impression 60 yo male, O2 dependent COPD presents following 3rd unresponsive episode due to misuse of prescription opiates, sensitivity given underlying respiratory and also benzos. No evidence per exam or discussion of our service with family that this indicates a suicide attempt and is more consistent with misuse. Pills are kept locked, harder to do with liquid so please consider this as recommendation is that all meds, including OTC be secured and continue to work with outpatient psychiatrist on Klonopin taper. Do not provide an benzo rx's at discharge. Risk Factors Assessment Do You Have Access To A Gun?: Yes (in a safe/vault, denies ever suicidal) Psych History Identifying Data 60 yo male from [place], consult by Dr. Benedict for possible depression. Chief Complaint "I don't remember, it clearly wasn't a suicide attempt--I wouldn't do that to my family". History of Present Illness patient maintains his story of taking cough medicine in a delirious or sleep state, unclear if all at once or over time. Liaison confirmed with that hasn't been making suicidal statements, seems down/frustrated about medical issues/COVID risk and measures. locks Klonopin as had has other periods of decreased responsiveness and past misuse of medications. He denies intent to abuse medication. He is aware of risk of repiratory depression with his benzos and codeine. Codeine wasn't locked as it was liquid. Found unresponsive by family and intubated. 1-on-1 discontinued on floor as he has consistently denied SI and behavior has been appropriate. patient was seen on consult service in April and Xanax was converted to Klonopin with recommendation for taper. The patient understands this is the plan, states all has been preceding slowly as he is going to follow up with Kenn zuluaga. Sleep is chronically poor/disrupted due to respiratory disease, interest and energy are baseline, denies guilt, appetite varies, will make statements like "I only have 6 months to live" to but no SI to , not hospice though did see palliative consult here. No manic sx. hx of panic. Past Psychiatric History Previous Psych History: carries a diagnosis of bipolar disorder but meds are primarily for depression. Benzos longstanding. Outpatient Services: Dm for psychology and psychiatry, states he has a telehealth appt with Dr. Teixeira this week. Previous Psych Admissions: none Do You Have Access To A Gun?: Yes (in a safe/vault, denies ever suicidal) History of Previous Suicide Attempt: No Past Medication Trials: trazodone, Ambien, Zoloft, Remeron, Xanax up to 4 mg daily. Allergies Allergy/AdvReac Type Severity Reaction Status Date / Time No Known Allergies Allergy Verified 09/17/20 11:44 Home Medications Medication Instructions Recorded Confirmed Type ipratropium-albuterol 3 ml INHALATION Q4H PRN 03/20/19 09/17/20 History tizanidine [Zanaflex] 2 mg PO Q8H PRN 03/20/19 09/17/20 History albuterol sulfate [Ventolin HFA] 2 puff INHALATION Q4H PRN 04/05/20 09/17/20 History aspirin [Aspirin Low Dose] 81 mg PO DAILY 04/05/20 09/17/20 History Anoro Ellipta 1 inh INHALATION DAILY #60 ea 05/12/20 09/17/20 Rx clonazepam 1 mg PO TID 08/17/20 09/17/20 History codeine-guaifenesin [Guaiatussin 5 ml PO Q4H PRN 08/17/20 09/17/20 History AC] mirtazapine 45 mg PO HS 08/17/20 09/17/20 History sertraline [Zoloft] 200 mg PO HS 08/17/20 09/17/20 History Family History denied Substance Abuse History tobacco 1 PPD Personal History Living Arrangements: Home (with ) Born In: [facility]. Highest Grade Completed Comment: 10th grade Employment Status: Retired Marital Status: (2nd marriage) Number Of Children: 5 juli, 12 grandkids Beliefs That Will Affect Care: Christian History of Legal Problems: denied Psychological Trauma History Comment: child, hx of traumatic fall with broken hip per patient Patient History Medical History Anxiety Bipolar disorder Chronic pain COPD (chronic obstructive pulmonary disease) H/O: CVA (cerebrovascular accident) Tobacco use disorder Surgical History History of cervical spinal surgery History of hip surgery Family History Other Heart disease Social History Smoking Status: Current every day smoker Tobacco Type: Cigarettes Cigarettes Per Day: 5; Second Hand Exposure: No (UNKNOWN); Do You Dip or Chew Tobacco: No; Tobacco Cessation Education Requested by Patient: No Hx Alcohol Use: No Hx Substance Use: Yes Substance Use Type Other:: MEHT IN PER OLD CHART Preferred Language: [place] Communication Ability: Effective Communication Ability Comment: INTUBATED Security System Engineer Required: No Beliefs That Will Affect Care: Christian Current Living Situation: Spouse and Family Current Living Situation Comment: , Daughter, son in law, 2 grand children Other Information That Helps Us Care for You: No Feels Safe at Home: Yes Safety Concerns: Feels Safe At This Time Assistive Devices: Oxygen - Continuous Physical Exam Psychiatric: Orientation: alert Apperance: appropriately groomed Eye Contact: good eye contact Motor Behavior: no abnormal motor movements Speech: normal rate/rhythm/volume of speech Affect: euthymic affect "I'm fine really" Thought Process: goal directed thought process Thought Content: reality based without delusions Suicidal Thoughts: denies suicidal thoughts Homicidal Thoughts: denies homicidal thoughts Hallucinations: no auditory hallucinations and no visual hallucinations Cognition: attention grossly intact Estimated Intelligence: consistent with education level Insight: + fair insight Judgement: + limited judgement Vital Signs (Past 24 Hours): Last Vital Signs Temp 37.0 C 09/19/20 08:17 Pulse 76 09/19/20 09:09 Resp 16 09/19/20 09:09 BP 141/92 H 09/19/20 08:17 Pulse Ox 94 09/19/20 09:09 Review of Systems All systems reviewed & are unremarkable except as noted in HPI & below Results & Data ([facility]) Medications Administered Albuterol (Albut/Ipratrop 3mg/0.5mg Neb 3 Ml Vial) 3 ml NEB QIDR PRN PRN Reason: Shortness Of Breath Or Wheezing Stop: 10/17/20 14:59 Last Admin: 09/19/20 09:08 Dose: 3 ml Documented by: [id number] Aspirin (Aspirin 81 Mg Ectab) 81 mg PO DAILY LINDA Stop: 10/19/20 08:59 Last Admin: 09/19/20 08:40 Dose: 81 mg Documented by: [id number] Clonazepam (Clonazepam 0.5 Mg Tab) 0.5 mg PO TID LINDA Stop: 10/18/20 13:59 Last Admin: 09/19/20 08:37 Dose: 0.5 mg Documented by: [id number] Admin: 09/18/20 20:50 Dose: 0.5 mg Documented by: [id number] Admin: 09/18/20 14:15 Dose: 0.5 mg Documented by: [id number] Enoxaparin Sodium (Enoxaparin Inj 40 Mg/0.4 Ml Syr) 40 mg SQ QAM LINDA Stop: 10/17/20 14:39 Last Admin: 09/19/20 08:41 Dose: 40 mg Documented by: [id number] Admin: 09/18/20 08:02 Dose: 40 mg Documented by: [id number] Admin: 09/17/20 16:10 Dose: 40 mg Documented by: [id number] Guaifenesin (Guaifenesin 600 Mg Tabcr) 1,200 mg PO Q12 LINDA Stop: 10/18/20 20:59 Last Admin: 09/19/20 08:38 Dose: 1,200 mg Documented by: [id number] Admin: 09/18/20 20:51 Dose: 1,200 mg Documented by: [id number] Mirtazapine (Mirtazapine Tab 15 Mg Tab) 45 mg PO HS LINDA Stop: 10/18/20 20:59 Last Admin: 09/18/20 20:50 Dose: 45 mg Documented by: [id number] Prednisone (Prednisone 20 Mg Tab) 20 mg PO DAILY LINDA Stop: 10/19/20 08:59 Last Admin: 09/19/20 08:40 Dose: 20 mg Documented by: [id number] Sertraline HCl (Sertraline Hcl 100 Mg Tablet) 200 mg PO HS LINDA Stop: 10/18/20 20:59 Last Admin: 09/18/20 20:51 Dose: 200 mg Documented by: [id number] Tizanidine HCl (Tizanidine Hcl 4 Mg Tablet) 2 mg PO Q8H PRN PRN Reason: Muscle Spasm Stop: 10/18/20 14:51 Last Admin: 09/19/20 08:39 Dose: 2 mg Documented by: [id number] Admin: 09/18/20 20:51 Dose: 2 mg Documented by: [id number] Umeclidinium/Vilanterol (Umeclidinium/Vilanterol 62.5/25mcg 7 Puffs/Inhaler) 1 puffs INH DAILY LINDA Stop: 10/19/20 08:59 Last Admin: 09/19/20 08:37 Dose: 1 puffs Documented by: [id number] Coding Level of Care Code 18579 U Intl Hosp Care Lvl 2
--- NOTE | 2020-09-19 14:55 | Hospitalist Progress Note ---
Date of Service September 19, 2020 Assessment & Plan (1) Acute on chronic respiratory failure with hypoxia and hypercapnia: (2) Acute respiratory acidosis: (3) Pneumonia: (4) Acute exacerbation of chronic obstructive pulmonary disease (COPD): This is a 60yo M with a PMH of severe COPD, chronic respiratory failure on 3 L nasal cannula, tobacco use disorder, bipolar disorder, anxiety and other medical problems listed below with presents after being found unresponsive by family this morning. due to accidental overdose (?) of Hycodan ( codeine -guaifenesin ) cough syrup - prescribed recently for chronic non productive cough pt was Found to be minimally responsive by EMS, in ER found to be in respiratory failure with respiratory acidosis with hypercarbia ABG : pH 7.02, pCO2 148 / intubated in ED appreciate input from [employer] successfully extubated , on 2 L 02 ( his baseline ) CXR improved aeration within the right lower lobe airspace opacity consistent with a resolving pneumonia Lactic acid and procalcitonin within normal limits. abx d/louise Covid screen negative - pt been doing well clinically no complain of SOB , no fever or chills stable vitals , respiratory status at baseline baseline advanced COPD with 3 L 02 , seen by Palliative care for over all poor prognosis counselling provided to avoid medication with Narcotics /sedatives as it will compromise is respiratory status leading to coma / -pt verbalized understanding (5) Acute metabolic encephalopathy: In setting of hypercarbia due to overdose of analgesic medication CT head without acute intracranial abnormalities mental status at baseline , post extubation conversing normally , able to answer all questions (6) Overdose of analgesic: Ingested 2/3 codeine cough syrup bottle that was filled yesterday Ongoing issues with controlled substances, keeps Klonopin in locked box appreciate input from Psych all narcotics /sedatives medications should be avoided for this pt Hycodan syrup could not be locked being liquid -should not be prescribed in future pt should not be prescribed any narcotics or sedative Meds (7) Anxiety: Follows with [facility] for gradual taper of Klonopin has been keeping Klonopin in Locked box -asked to keep Remeron in Locked box as well -for risk of life threatening overdose (8) Bipolar disorder: on SSRI appreciate Psych input , no medication adjustment needed during this hospital stay already has scheduled appointment with his Primary Psychiatry @ [facility] in a week (9) Tobacco use disorder: Smoking cessation education ordered pt continues to smoke while being on 2-3 L 02 risk for fire hazard /severe burning smoking while on 02 ( highly flammable ) - explained to patient -voiced understanding pt says he is down to smoking 2-3 cig a day complete abstinence needed pt's chronic cough could be due to ongoing smoking cough syrup with codeine should be avoided can utilize non sedative : Mucinex or Robitussin as needed (10) Insomnia: Mirtazapine HS-asked to keep in locked box for risk of overdose DVT Ppx: SQ Lovenox Code status: FULL Code Dispo stable to be discharged home today update given to over phone , all questions answered Admission and Anticipated Discharge Date Admission Date: September 17, 2020 Subjective Follow up visit for acute hypoxemic resp failure /accidental overdose on med/advanced COPD : awake and alert , no further complains on baseline resp status 2 L o2 , mild non production cough , which is chronic stable vitals no fever or chills stable to be discharged home today Review of Systems Review of Systems: All systems reviewed & are unremarkable except as noted in Subjective Physical Exam Physical Exam: Physical exam: General: No acute distress, alert awake oriented x3/thin Ill appearing HEENT: PERRLA, EOMI,/ani icteric sclera Heart: Regular S1-S2, no carotid bruit, no JVD, no lower extremity edema Lungs: diminished, no audible wheeze Abdomen: Soft nontender, no organomegaly Extremity: No cyanosis, no deformity, normal strength 5 out of 5 with upper and lower Neuro: No focal neurological deficit normal speech, normal visual field, Motor strength : normal both upper and lower extremity, sensation intact Psych: Alert awake oriented x3, normal affect Results & Data Results & Data ([facility]) Vital Signs (Past 12 Hours) Vital Signs Temp Pulse Resp BP Pulse Ox 09/19/20 14:30 37.0 C 76 16 141/92 H 94 09/19/20 09:09 76 16 94 09/19/20 08:17 37.0 C 65 16 141/92 H 98 (1) Overdose of analgesic Encounter type: initial encounter Injury intent: undetermined intent Qualified Code(s): T39.94XA - Poisoning by unspecified nonopioid analgesic, antipyretic and antirheumatic, undetermined, initial encounter
--- NOTE | 2020-09-19 14:57 | Discharge Summary ---
Date of Service September 19, 2020 Admission HPI Per Admitting Provider This is a 60yo M with a PMH of severe COPD, chronic respiratory failure on 3 L nasal cannula, tobacco use disorder, bipolar disorder, anxiety and other medical problems listed below with presents after being found unresponsive by family this morning. Obtained history from over the phone. Patient has been in normal state of health except for increased cough over the past few days. Reportedly taking inhalers as scheduled. No fever chills or known sick contacts. Has been sleeping more during the day and has a limited appetite. Still smoking a pack a day of cigarettes. Uses oxygen at home and is able to cli mb stairs on his own. Does not use bipap machine he was discharged with approximately 6 months ago, per . Went to sleep on the couch around midnight and was found by daughters around 9 AM to be minimally responsive. Had a bottle of cough medicine at home of which approximately 150ml is missing since being dispensed yesterday. EMS was called and respirations were initially 4 per EMS and Narcan was administered with minimal improvement. In ED, patient remained somnolent and was intubated. Unable to obtain ROS due to sedated state. Principal Diagnosis Acute respiratory failure due to drug overdose * advanced COPD * ongoing tobacco abuse Discharge Exam General- No acute distress, frail Head- atraumatic Eyes- PERRL, EOMI, ENT- oropharynx clear Neck- supple, no JVD Lungs- diminished BS Heart- regular rhythm; no murmur Abdomen- normal bowel sounds, soft, nontender Extremities- no calf tenderness Neuro- alert, oriented x 3; PERRL, EOMI; no facial palsy; no dysarthria Skin- warm & dry Discharge Data Allergies Allergy/AdvReac Type Severity Reaction Status Date / Time No Known Allergies Allergy Verified 09/17/20 11:44 Consultations 09/17/20 12:07 ED Decision to Admit Stat 09/17/20 14:40 Consult Director Intelligence Analysis Programs Routine 09/17/20 15:24 Consult Palliative Care Routine 09/17/20 15:33 Consult Behavioral Health Liaison Routine 09/18/20 16:38 Consult Psychiatry Routine Ordered Studies 09/17/20 10:44 CT head/brain wo con Stat Hospital Course (1) Acute on chronic respiratory failure with hypoxia and hypercapnia: (2) Acute respiratory acidosis: (3) Pneumonia: (4) Acute exacerbation of chronic obstructive pulmonary disease (COPD): This is a 60yo M with a PMH of severe COPD, chronic respiratory failure on 3 L nasal cannula, tobacco use disorder, bipolar disorder, anxiety and other medical problems listed below with presents after being found unresponsive by family this morning. due to accidental overdose (?) of Hycodan ( codeine -guaifenesin ) cough syrup - prescribed recently for chronic non productive cough pt was Found to be minimally responsive by EMS, in ER found to be in respiratory failure with respiratory acidosis with hypercarbia ABG : pH 7.02, pCO2 148 / intubated in ED appreciate input from Director [employer] successfully extubated , on 2 L 02 ( his baseline ) CXR improved aeration within the right lower lobe airspace opacity consistent with a resolving pneumonia Lactic acid and procalcitonin within normal limits. abx d/louise Covid screen negative - pt been doing well clinically no complain of SOB , no fever or chills stable vitals , respiratory status at baseline baseline advanced COPD with 3 L 02 , seen by Palliative care for over all poor prognosis counselling provided to avoid medication with Narcotics /sedatives as it will compromise is respiratory status leading to coma / -pt verbalized understanding (5) Acute metabolic encephalopathy: In setting of hypercarbia due to overdose of analgesic medication CT head without acute intracranial abnormalities mental status at baseline , post extubation conversing normally , able to answer all questions (6) Overdose of analgesic: Ingested 2/3 codeine cough syrup bottle that was filled yesterday Ongoing issues with controlled substances, keeps Klonopin in locked box appreciate input from Psych all narcotics /sedatives medications should be avoided for this pt Hycodan syrup could not be locked being liquid -should not be prescribed in future pt should not be prescribed any narcotics or sedative Meds (7) Anxiety: Follows with [facility] for gradual taper of Klonopin has been keeping Klonopin in Locked box -asked to keep Remeron in Locked box as well -for risk of life threatening overdose (8) Bipolar disorder: on SSRI appreciate Psych input , no medication adjustment needed during this hospital stay already has scheduled appointment with his Primary Psychiatry @ [facility] in a week (9) Tobacco use disorder: Smoking cessation education ordered pt continues to smoke while being on 2-3 L 02 risk for fire hazard /severe burning smoking while on 02 ( highly flammable ) - explained to patient -voiced understanding pt says he is down to smoking 2-3 cig a day complete abstinence needed pt's chronic cough could be due to ongoing smoking cough syrup with codeine should be avoided can utilize non sedative : Mucinex or Robitussin as needed (10) Insomnia: Mirtazapine HS-asked to keep in locked box for risk of overdose DVT Ppx: SQ Lovenox Code status: FULL Code Dispo stable to be discharged home today update given to over phone , all questions answered Total Time Total Time Spent Total Time Spent (In Minutes): approx 35 mins Total Time Includes: Examination of the Patient, Discharge Planning and Medication Reconciliation Discharge Plan Discharge Items Patient Disposition: Home - Self-Care Reason For Visit: ACUTE RESP FAILURE,COPD,PNA Discharge Diagnosis: * Acute respiratory failure due to drug overdose * advanced COPD * ongoing tobacco abuse Activity: Resume your previous activity Non-emergency contact: Primary Care Provider Call non-emergency contact if: you have any medication questions Follow-up/Referrals: Chris Diaz DO [Primary Care Provider] - (Hospital follow up in a week , office will call with appointment ) Diet: Heart Healthy Rosalina Attending Provider Instructions: Please take all medications as instructed on discharge list below. It is recommended that you follow-up with your primary care physician within 1-2 weeks of hospital discharge to ensure you are still doing well. Please call if you have any questions or problems. You can reach a [facility] hospitalist on duty at [facility] 24 hours a day by calling [phone] Rosalina [employer] Provider Instructions: All Narcotics /Sedatives medications need to be in LOCK BOX AND SUPERVISED DURING TAKING MEDS DO NOT TAKE HYCODAN ( CODEINE -GUAIFENESIN ) COUGH SYRUP CAN TAKE MUCINEX TABLET 2 TABLET TWICE DAILY FOR COUGH OR TESSALON PEARLS NEED THREE TIMES DAILY NEED TO QUIT SMOKING COMPLETELY YOUR PERSISTENT COUGH COULD BE RELATED TO CIGARETTE SMOKING Pending Studies at Discharge: No Stand-Alone Forms: My [facility], Smoking Cessation Medications and DC Order Prescriptions: New guaifenesin [Mucinex] 600 mg Tablet Extended Release 12hr 1,200 mg PO Q12 30 Days Qty: 120 RF: 0 benzonatate [Tessalon Perles] 100 mg Capsule 100 mg PO TID PRN (Reason: cough) Qty: 90 RF: 0 prednisone 5 mg tablet See Rx Instructions .ROUTE .COMPLEX Qty: 10 RF: 0 Continued aspirin [Aspirin Low Dose] 81 mg Tablet,Delayed Release (Dr/Ec) 81 mg PO DAILY RF: 0 albuterol sulfate [Ventolin HFA] 90 mcg/actuation HFA aerosol inhaler 2 puff INHALATION Q4H PRN (Reason: Shortness Of Breath Or Wheezing) RF: 0 mirtazapine 45 mg tablet 45 mg PO HS RF: 0 sertraline [Zoloft] 100 mg tablet 200 mg PO HS RF: 0 clonazepam 1 mg tablet 1 mg PO TID RF: 0 ipratropium-albuterol 0.5 mg-3 mg(2.5 mg base)/3 mL solution for nebulization 3 ml inhalation Q4H PRN (Reason: Shortness Of Breath Or Wheezing) RF: 0 tizanidine [Zanaflex] 4 mg tablet 2 mg PO Q8H PRN (Reason: Muscle Spasm) RF: 0 Anoro Ellipta 62.5-25 mcg/actuation blister with device 1 inh inhalation DAILY Qty: 60 RF: 0 Discontinued codeine-guaifenesin [Guaiatussin AC] 10-100 mg/5 mL liquid 5 ml PO Q4H PRN (Reason: Cough) RF: 0 Discharge Orders: Discharge Order (Routine); Ordered 09/19/20 Ordered By: Sandi Smith/Other Patient Handouts: ED Overdose, Opiate Admission Data Admit Date/Time: 09/17/20 12:19 Attending Provider: Sandi Benedict Admit Provider: Jorge L Almodovar Primary Care Provider: Chris Diaz Other Providers: Jorge L Almodovar ; Lazaro Garcia ; Cherelle Connolly ; Cynthia Chery
[2020-09-19 15:56] LABS: 7-Aminoclonaz, Confirm 818 ng/mL (<25); Codeine Urine 9410 ng/mL (<50); Hydro-Alp Ur, GC/MS NEGATIVE ng/mL (<25); Hydrocodone Urine 80 ng/mL (<50); Hydromor Urine NEGATIVE ng/mL (<50); Hydroxyethylflurazepam, Conf NEGATIVE ng/mL (<50); Hydroxymidazolam Ur, GC/MS NEGATIVE ng/mL (<50); Hydroxytriazolam NEGATIVE ng/mL (<50); Lorazepam, Ur GC/MS NEGATIVE ng/mL (<50); Morphine Urine 867 ng/mL (<50); Nordiazepam, Confirm NEGATIVE ng/mL (<50); Norhydrocodone Conf Ur NEGATIVE ng/mL (<50); Noroxycodone Urine NEGATIVE ng/mL (<50); Oxazepam Ur, GC/MS NEGATIVE ng/mL (<50); Oxycodone Urine NEGATIVE ng/mL (<50); Oxymorph Urine NEGATIVE ng/mL (<50); Temazepam, Confirm NEGATIVE ng/mL (<50)
== END 2020-09-19 15:33 | disposition home or self-care (01) | DRG 917 ==
LOC: ED 10:25 → 1E 12:19 → SUATTDRO 12:19 → 1E 13:43 → 3N 09-18 14:05

== ENCOUNTER 2021-02-21 10:49 | Inpatient (IN) ==
[~2021-02-21 10:49] MED LIST changes: +ETOMIDATE 2 MG/ML 20 ML VIAL IV ONE; -NALOXONE HCL 0.4 MG/1 ML VIAL/CARP ONE; -RAPID SEQUENCE INDUCTION BAG ONE; +ROCURONIUM BROMIDE 10 MG/ML 5 ML VIAL IV ONE; +fentaNYL citrate 100 MCG/2 ML VIAL IV ONE
[2021-02-21] MEDS ORDERED: SODIUM BICARB 8.4% INJ 50 MEQ/50 ML SYR IV ONE ×2 (10:51→10:57)
[2021-02-21] MEDS ORDERED: RAPID SEQUENCE INDUCTION BAG ONE (10:51)
[2021-02-21] MEDS ORDERED: methylPREDNISolone 125 MG/2 ML VIAL ONE (10:52)
[2021-02-21] MEDS ORDERED: LORazepam 2 MG/ML VIAL (IM USE) ONE (10:53)
[2021-02-21] MEDS ORDERED: ALBUT/IPRATROP 3MG/0.5MG NEB 3 ML VIAL NEB ONE (11:03)
[2021-02-21] MEDS ORDERED: methylPREDNISolone 125 MG/2 ML VIAL IV STA (11:03)
[2021-02-21] MEDS ORDERED: PROPOFOL IV EMULSION 10 MG/ML 100 ML VIAL IV ONE (11:04)
[2021-02-21] MEDS ORDERED: MIDAZOLAM BOLUS FROM BAG IV PRN (11:11)
[2021-02-21] MEDS ORDERED: STAT IV Infusion **Titration per Protocol STA ×2 (11:11→13:27)
[2021-02-21] MEDS ORDERED: fentaNYL citrate 100 MCG/2 ML VIAL IV STA (11:11)
[2021-02-21] MEDS ORDERED: MIDAZOLAM HCL 125 MG/250 ML BAG IV STA (11:12)
[2021-02-21] MEDS ORDERED: SODIUM CHLORIDE 0.9% 1000ML 1,000 ML IV SCH ×2 (11:15→15:30)
[2021-02-21] MEDS ORDERED: fentaNYL DRIP 1,250 MCG/250 ML BAG IV SCH (11:15)
[2021-02-21] MEDS ORDERED: propofoL 1,000 MG/100 ML VIAL IV SCH (11:15)
--- NOTE | 2021-02-21 11:17 | Emergency Department Note ---
Impression & Plan Acute hypoxemic respiratory failure, Acute exacerbation of chronic obstructive pulmonary disease (COPD), Acute dehydration ED Provider Note NAME: ZE BO AGE: 61 SEX: M : 1960 ARRIVES VIA: Ambulance INFORMANT: Patient, ED PROVIDER(S): Rafa Mobley MD Chief Complaint: Respiratory distress HPI: History is limited to EMS alone as the patient was unable to contribute to the history. EMS reports that the patient has a history of COPD with chronic decline over the last several days and was significantly hypoxic agitated and in respiratory distress. The patient was noted to be hypoxic into the 50s on room air. The patient was placed on nonrebreather CPAP and subsequently nonrebreather as the patient was not tolerating the CPAP. Patient was tachycardic and blood pressure prior to arrival was systolic 100s. No further history at this time other than that EMS states that the patient has used narcotics in the past but there was no report of any narcotics abuse today or in the last several days. ROS: Unable to obtain secondary to clinical condition. Past medical history: See below Surgical history: See below Social history: See below Physical Exam: GENERAL: Severe distress, agitated, shallow breathing. Very thin in appearance. EYE EXAM: Normal conjunctiva. PERRL, no anisocoria and EOM's grossly intact w/o pain. OROPHARYNX: Dry mucous membranes, edentulous. NECK: Supple, no nuchal rigidity, no adenopathy, non-tender. No signs of meningismus. LUNGS: Decreased breath sounds throughout with scant wheezing. HEART: Tachycardic, no MRG. ABDOMEN: Abdomen soft, normo-active bowel sounds, no masses, no rebound or guarding. BACK: No obvious bruising or overlying skin changes. SKIN: No rashes and no bruising. Numerous tattoos noted. UPPER EXTREMITIES: Upper extremities are grossly normal. LOWER EXTREMITIES: Grossly normal, no edema. NEURO EXAM: Moves all 4 extremities but does not follow commands. Differential diagnoses: Reactive airway disease, pneumonia, pneumothorax, COPD, CHF, infections, cardiac ischemia, pulmonary embolism, musculoskeletal, gastrointestinal, as well as other pathologies. Course: Patient was seen and evaluated the bedside. Full history physical exam was performed. EKG interpreted by me Normal sinus rhythm, rate of 71, normal intervals, normal axis, no ST changes or T WI. Imaging Studies: See Below Cardiac monitoring: An order was placed for continuous cardiac monitoring. The monitor shows a rate of 62 with sinus rhythm. Procedures: Endotracheal Intubation performed by Dr. Mobley Indication: Respiratory failure The patient was on 100% oxygen via NRB prior to the procedure. Suction, airway equipment, RSI drugs, respiratory equipment, and appropriate personnel were prepared prior to the initiation of the procedure. A time out was taken. Induction was performed with etomidate. After observing the clinical benefit of the medications, the airway was easily visualized utilizing a MAC 4. A 7.5 size ETT tube was placed atraumatically to 24 cm using standard technique. The cuff inflated without signs of malfunction. There were bilateral breath sounds, positive colormetric change, no gastric sounds, a good capnography waveform, and post procedure pulse oximetry was 100%. Post intubation sedation and paralysis was administered using fentanyl and Versed. Patient was still well above the danny into the tube was advanced 3 cm. Repeat chest x-ray showed that patient was still 4 cm. The patient was advanced an additional centimeter. There were no complications. EJ/Peripheral Line placed by Dr. Mobley Indication: Difficult blood draw, additional access Site: L Neck Time Out Performed: Yes Skin Cleansed in Sterile Fashion: Yes Size (gauge): 18 IV Secured and Dressing Applied: Yes Patient Tolerated Procedure: well MDM: Patient did present with concern for severe respiratory distress. The patient was given Ativan but was not tolerating redirection angle or BiPAP. The decision was made to intubate. Prior to intubation the patient was started on IV fluids and was given 2 A of bicarb given the patient's history of COPD. Intubation proceeded and the patient was given etomidate and rocuronium. The patient was intubated without any difficulty. Sedatives were ordered in addition to the blood work and imaging. Post intubation chest x-ray did show that the patient's ET tube was high and was advanced several centimeters. Repeat showed that the patient's ET tube was still 4 cm and I did advise respiratory to advance in another 1 cm. Patient was having some peak inspiratory pressures to the patient's PEEP and tidal volumes were lowered. Initial ABG showed chronic hypercarbia with normal pH of 7.4. I did speak with the on-call hospitalist Dr. Copeland and the patient was admitted to the intensive care unit and Dr. Torres, the butane compressor operator, was also notified by the primary admitting team. Critical Care: I have personally spent 135 minutes of critical care time in direct management of this patient. This includes bedside care, interpretation of diagnostic studies, and testing, discussion with consultants, patient, and family members, and other require inpatient management activities. This 135 minutes is in excess of all separately billable procedures. Past Med/Surg History Medical History Anxiety Bipolar disorder Chronic pain Chronic respiratory failure COPD (chronic obstructive pulmonary disease) H/O: CVA (cerebrovascular accident) Tobacco use disorder Surgical History History of cervical spinal surgery History of hip surgery Family History Other Heart disease Social History Smoking Status: Current every day smoker Tobacco Type: Cigarettes packs per day: 1; Second Hand Exposure: No (UNKNOWN); Hx Alcohol Use: No Hx Substance Use: No Preferred Language: Slovenian Communication Ability: Unable Field Service Engineer Required: No Beliefs That Will Affect Care: None Current Living Situation: Spouse and Family Current Living Situation Comment: , Daughter, son in law, 2 grand children Feels Safe at Home: Yes Assistive Devices: BiPap, Cane, CPAP, Glasses and Oxygen - Continuous Allergies Allergies Allergy/AdvReac Type Severity Reaction Status Date / Time No Known Allergies Allergy Verified 09/17/20 11:44 Home Meds Home Medications Medication Instructions Recorded Confirmed ipratropium 0.5 mg-albuterol 3 mg 3 ml INHALATION Q4H PRN 03/20/19 02/21/21 (2.5 mg base)/3 mL nebulization soln tizanidine 4 mg tablet (Zanaflex) 2 mg PO Q8H PRN 03/20/19 02/21/21 albuterol sulfate 90 mcg/actuation 2 puff INHALATION Q4H PRN 04/05/20 02/21/21 aerosol inhaler (Ventolin HFA) aspirin 81 mg tablet,delayed 81 mg PO DAILY 04/05/20 02/21/21 release (Aspirin Low Dose) clonazepam 1 mg tablet 1 mg PO TID 08/17/20 02/21/21 mirtazapine 45 mg tablet 45 mg PO HS 08/17/20 02/21/21 sertraline 100 mg tablet (Zoloft) 200 mg PO HS 08/17/20 02/21/21 Previous Rx's Medication Instructions Recorded umeclidinium 62.5 mcg-vilanterol 1 inh INHALATION DAILY #60 ea 05/12/20 25 mcg/actuation powdr for inhalation (Anoro Ellipta) Results & Data (ED) Vital Signs Vital Signs - 24 hr 02/21/21 11:00 02/21/21 11:10 02/21/21 11:20 Temperature Temperature Source Pulse Rate 101 H 96 H 79 Pulse Rate [Apical] Pulse Rate from SpO2 Sensor Respiratory Rate 48 H 24 20 Respiratory Effort / Characteristics Accessory Muscle Use Labored SOB on Exertion Respiratory Depth Shallow Blood Pressure 158/88 H 114/81 106/75 Blood Pressure Mean 111 92 85 Pulse Oximetry 100 100 Oxygen Delivery Method CPAP Mechanical Vent Fraction of Inspired Oxygen 55 Sepsis Recent Fever Within 48 Hours No Sepsis New/Unexplained Change in Mental Status Yes Sepsis Action Taken by Nursing Physician Notified 02/21/21 11:30 02/21/21 11:40 02/21/21 11:41 Temperature Temperature Source Pulse Rate 71 70 Pulse Rate [Apical] 70 Pulse Rate from SpO2 Sensor 70 Respiratory Rate 25 H 21 24 Respiratory Effort / Characteristics Mechanically Ventilated Respiratory Depth Blood Pressure 123/92 117/88 Blood Pressure Mean 102 97 Pulse Oximetry 100 100 100 Oxygen Delivery Method Mechanical Vent Fraction of Inspired Oxygen 40 Sepsis Recent Fever Within 48 Hours Sepsis New/Unexplained Change in Mental Status Sepsis Action Taken by Nursing 02/21/21 11:45 02/21/21 11:50 02/21/21 12:00 Temperature Temperature Source Pulse Rate 72 71 Pulse Rate [Apical] Pulse Rate from SpO2 Sensor 73 71 Respiratory Rate 24 24 Respiratory Effort / Characteristics Respiratory Depth Blood Pressure 111/88 101/79 Blood Pressure Mean 95 86 Pulse Oximetry 100 100 Oxygen Delivery Method Mechanical Vent Fraction of Inspired Oxygen 30 30 Sepsis Recent Fever Within 48 Hours Sepsis New/Unexplained Change in Mental Status Sepsis Action Taken by Nursing 02/21/21 12:04 02/21/21 12:05 02/21/21 12:10 Temperature 37 C Temperature Source Oral Pulse Rate 70 76 Pulse Rate [Apical] Pulse Rate from SpO2 Sensor 70 70 Respiratory Rate 24 23 Respiratory Effort / Characteristics Respiratory Depth Blood Pressure 94/75 L 111/91 Blood Pressure Mean 81 97 Pulse Oximetry 100 100 Oxygen Delivery Method Fraction of Inspired Oxygen Sepsis Recent Fever Within 48 Hours Sepsis New/Unexplained Change in Mental Status Sepsis Action Taken by Snf Medications Current Medication List: was personally reviewed by me Laboratory Data Attestation: I reviewed the patient's lab results. Result diagrams: 02/21/21 11:23 02/21/21 11:23 Lab Results 02/21/21 02/21/21 02/21/21 Range/Units 11:07 11:07 11:23 WBC (4.8-10.8) K/uL RBC (4.7-6.1) M/uL Hgb (14.0-18.0) g/dL Hct (42-52) % MCV (80-100) fL MCH (25-34) pg MCHC (32-36) g/dL RDW Std Deviation (36.4-46.3) fL RDW Coeff of Mani (11.5-14.5) % Plt Count (130-400) K/uL MPV (7.4-10.4) fL Immature Gran % (Auto) % Neut % (Auto) % Lymph % (Auto) % [place] % (Auto) % Eos % (Auto) % Baso % (Auto) % Neut # (Auto) (1.4-6.5) K/uL Lymph # (Auto) (1.2-3.4) K/uL [place] # (Auto) (0.11-0.59) K/uL Eos # (Auto) (0-0.5) K/uL Baso # (Auto) (0-0.2) K/uL Immature Gran # (Auto) (0.00-0.02) K/uL PT (9.0-12.0) Seconds INR (0.9-1.1) APTT (21.0-31.0) Seconds PTT Ratio POC pH (7.35-7.45) POC pCO2 (35-46) mmHg POC pO2 (80-95) mmHg POC HCO3 (19-24) jus/L POC Total CO2 (24-31) mmol/L POC Base Excess (-9-1.8) jus/L POC ABG O2 Sat (90-95) % Sodium 136 (136-145) mmol/L Potassium 3.8 (3.5-5.1) mmol/L Chloride 94 L (98-107) mmol/L Carbon Dioxide 39 H (21-32) mmol/L Anion Gap 3.0 (3-11) BUN 58 H (7-18) mg/dl Creatinine 1.28 (0.6-1.4) mg/dl Est Cr Clr Drug Dosing Not Reportable Est GFR ( Amer) 69.1 ml/min Est GFR (Non-Af Amer) 59.6 ml/min BUN/Creatinine Ratio 45.2 H (10-20) Glucose 88 (70-99) mg/dl Lactate (0.4-2.0) mmol/L Calcium 8.2 L (8.5-10.1) mg/dl Phosphorus 6.6 H (2.5-4.9) mg/dl Magnesium 2.4 (1.8-2.4) mg/dl Total Bilirubin 0.4 (0.2-1) mg/dl AST 77 H (15-37) U/L ALT 62 (12-78) U/L Alkaline Phosphatase 94 (45-117) U/L Troponin I < 0.015 (0-0.045) ng/ml Total Protein 6.9 (6.4-8.2) gm/dl Albumin 3.0 L (3.4-5.0) gm/dl Globulin 3.9 (2.5-4.0) gm/dl Albumin/Globulin Ratio 0.8 L (0.9-2) Procalcitonin (0-0.5) ng/ml Urine Color Urine Appearance (Clear) Urine pH (4.5-7.5) Ur Specific [place] (1.000-1.030) Urine Protein (Negative) Urine Glucose (UA) (Negative) Urine Ketones (Negative) Urine Blood (Negative) Urine Nitrite (Negative) Urine Bilirubin (Negative) Urine Urobilinogen (Negative) Ur Leukocyte Esterase (Negative) Urine WBC (Auto) (0-5) /hpf Urine RBC (Auto) (0-4) /hpf U Hyaline Cast (Auto) (0-5) /lpf U Epithel Cells (Auto) (0-5) /lpf Urine Bacteria (Auto) (Negative) Urine Opiates Screen (Neg) Ur Methadone, Qual (Neg) Urine Barbiturates (Neg) Ur Phencyclidine (PCP) (Neg) U Amphetamin/Meth Scrn (Neg) MDMA (Ecstasy) Screen (Neg) U Benzodiazepines Scrn (Neg) Ur Cocaine Metabolite (Neg) U Marijuana (THC) Screen (Neg) COVID-19 Eval Order Covid19 at [facility] SARS-CoV-2 (PCR) NEGATIVE (Negative) 02/21/21 02/21/21 02/21/21 Range/Units 11:23 11:23 11:34 WBC 10.50 (4.8-10.8) K/uL RBC 4.03 L (4.7-6.1) M/uL Hgb 11.8 L (14.0-18.0) g/dL Hct 37.5 L (42-52) % MCV 93.1 (80-100) fL MCH 29.3 (25-34) pg MCHC 31.5 L (32-36) g/dL RDW Std Deviation 47.3 H (36.4-46.3) fL RDW Coeff of Mani 13.8 (11.5-14.5) % Plt Count 199 (130-400) K/uL MPV 11.5 H (7.4-10.4) fL Immature Gran % (Auto) 0.3 % Neut % (Auto) 87.6 % Lymph % (Auto) 5.0 % [place] % (Auto) 7.0 % Eos % (Auto) 0.0 % Baso % (Auto) 0.1 % Neut # (Auto) 9.20 H (1.4-6.5) K/uL Lymph # (Auto) 0.53 L (1.2-3.4) K/uL [place] # (Auto) 0.73 H (0.11-0.59) K/uL Eos # (Auto) 0.00 (0-0.5) K/uL Baso # (Auto) 0.01 (0-0.2) K/uL Immature Gran # (Auto) 0.03 H (0.00-0.02) K/uL PT (9.0-12.0) Seconds INR (0.9-1.1) APTT (21.0-31.0) Seconds PTT Ratio POC pH 7.42 (7.35-7.45) POC pCO2 70 H (35-46) mmHg POC pO2 343 H (80-95) mmHg POC HCO3 45 H (19-24) jus/L POC Total CO2 > 40 H* (24-31) mmol/L POC Base Excess 21.0 H (-9-1.8) jus/L POC ABG O2 Sat 100.0 H (90-95) % Sodium (136-145) mmol/L Potassium (3.5-5.1) mmol/L Chloride (98-107) mmol/L Carbon Dioxide (21-32) mmol/L Anion Gap (3-11) BUN (7-18) mg/dl Creatinine (0.6-1.4) mg/dl Est Cr Clr Drug Dosing Est GFR ( Amer) ml/min Est GFR (Non-Af Amer) ml/min BUN/Creatinine Ratio (10-20) Glucose (70-99) mg/dl Lactate (0.4-2.0) mmol/L Calcium (8.5-10.1) mg/dl Phosphorus (2.5-4.9) mg/dl Magnesium (1.8-2.4) mg/dl Total Bilirubin (0.2-1) mg/dl AST (15-37) U/L ALT (12-78) U/L Alkaline Phosphatase (45-117) U/L Troponin I (0-0.045) ng/ml Total Protein (6.4-8.2) gm/dl Albumin (3.4-5.0) gm/dl Globulin (2.5-4.0) gm/dl Albumin/Globulin Ratio (0.9-2) Procalcitonin 0.13 (0-0.5) ng/ml Urine Color Urine Appearance (Clear) Urine pH (4.5-7.5) Ur Specific [place] (1.000-1.030) Urine Protein (Negative) Urine Glucose (UA) (Negative) Urine Ketones (Negative) Urine Blood (Negative) Urine Nitrite (Negative) Urine Bilirubin (Negative) Urine Urobilinogen (Negative) Ur Leukocyte Esterase (Negative) Urine WBC (Auto) (0-5) /hpf Urine RBC (Auto) (0-4) /hpf U Hyaline Cast (Auto) (0-5) /lpf U Epithel Cells (Auto) (0-5) /lpf Urine Bacteria (Auto) (Negative) Urine Opiates Screen (Neg) Ur Methadone, Qual (Neg) Urine Barbiturates (Neg) Ur Phencyclidine (PCP) (Neg) U Amphetamin/Meth Scrn (Neg) MDMA (Ecstasy) Screen (Neg) U Benzodiazepines Scrn (Neg) Ur Cocaine Metabolite (Neg) U Marijuana (THC) Screen (Neg) COVID-19 Eval Order SARS-CoV-2 (PCR) (Negative) 02/21/21 02/21/21 02/21/21 Range/Units 11:37 11:44 11:55 WBC (4.8-10.8) K/uL RBC (4.7-6.1) M/uL Hgb (14.0-18.0) g/dL Hct (42-52) % MCV (80-100) fL MCH (25-34) pg MCHC (32-36) g/dL RDW Std Deviation (36.4-46.3) fL RDW Coeff of Mani (11.5-14.5) % Plt Count (130-400) K/uL MPV (7.4-10.4) fL Immature Gran % (Auto) % Neut % (Auto) % Lymph % (Auto) % [place] % (Auto) % Eos % (Auto) % Baso % (Auto) % Neut # (Auto) (1.4-6.5) K/uL Lymph # (Auto) (1.2-3.4) K/uL [place] # (Auto) (0.11-0.59) K/uL Eos # (Auto) (0-0.5) K/uL Baso # (Auto) (0-0.2) K/uL Immature Gran # (Auto) (0.00-0.02) K/uL PT 12.4 H (9.0-12.0) Seconds INR 1.2 H (0.9-1.1) APTT 23.9 (21.0-31.0) Seconds PTT Ratio 0.9 POC pH (7.35-7.45) POC pCO2 (35-46) mmHg POC pO2 (80-95) mmHg POC HCO3 (19-24) jus/L POC Total CO2 (24-31) mmol/L POC Base Excess (-9-1.8) jus/L POC ABG O2 Sat (90-95) % Sodium (136-145) mmol/L Potassium (3.5-5.1) mmol/L Chloride (98-107) mmol/L Carbon Dioxide (21-32) mmol/L Anion Gap (3-11) BUN (7-18) mg/dl Creatinine (0.6-1.4) mg/dl Est Cr Clr Drug Dosing Est GFR ( Amer) ml/min Est GFR (Non-Af Amer) ml/min BUN/Creatinine Ratio (10-20) Glucose (70-99) mg/dl Lactate 1.8 (0.4-2.0) mmol/L Calcium (8.5-10.1) mg/dl Phosphorus (2.5-4.9) mg/dl Magnesium (1.8-2.4) mg/dl Total Bilirubin (0.2-1) mg/dl AST (15-37) U/L ALT (12-78) U/L Alkaline Phosphatase (45-117) U/L Troponin I (0-0.045) ng/ml Total Protein (6.4-8.2) gm/dl Albumin (3.4-5.0) gm/dl Globulin (2.5-4.0) gm/dl Albumin/Globulin Ratio (0.9-2) Procalcitonin (0-0.5) ng/ml Urine Color Dark Yellow Urine Appearance Clear (Clear) Urine pH 5.5 (4.5-7.5) Ur Specific [place] 1.022 (1.000-1.030) Urine Protein 1+ H (Negative) Urine Glucose (UA) Negative (Negative) Urine Ketones Trace H (Negative) Urine Blood Negative (Negative) Urine Nitrite Negative (Negative) Urine Bilirubin Negative (Negative) Urine Urobilinogen Negative (Negative) Ur Leukocyte Esterase Negative (Negative) Urine WBC (Auto) 1-5 (0-5) /hpf Urine RBC (Auto) 0-4 (0-4) /hpf U Hyaline Cast (Auto) >30 H (0-5) /lpf U Epithel Cells (Auto) 20-30 H (0-5) /lpf Urine Bacteria (Auto) 1+ H (Negative) Urine Opiates Screen (Neg) Ur Methadone, Qual (Neg) Urine Barbiturates (Neg) Ur Phencyclidine (PCP) (Neg) U Amphetamin/Meth Scrn (Neg) MDMA (Ecstasy) Screen (Neg) U Benzodiazepines Scrn (Neg) Ur Cocaine Metabolite (Neg) U Marijuana (THC) Screen (Neg) COVID-19 Eval Order SARS-CoV-2 (PCR) (Negative) 02/21/21 Range/Units 11:55 WBC (4.8-10.8) K/uL RBC (4.7-6.1) M/uL Hgb (14.0-18.0) g/dL Hct (42-52) % MCV (80-100) fL MCH (25-34) pg MCHC (32-36) g/dL RDW Std Deviation (36.4-46.3) fL RDW Coeff of Mani (11.5-14.5) % Plt Count (130-400) K/uL MPV (7.4-10.4) fL Immature Gran % (Auto) % Neut % (Auto) % Lymph % (Auto) % [place] % (Auto) % Eos % (Auto) % Baso % (Auto) % Neut # (Auto) (1.4-6.5) K/uL Lymph # (Auto) (1.2-3.4) K/uL [place] # (Auto) (0.11-0.59) K/uL Eos # (Auto) (0-0.5) K/uL Baso # (Auto) (0-0.2) K/uL Immature Gran # (Auto) (0.00-0.02) K/uL PT (9.0-12.0) Seconds INR (0.9-1.1) APTT (21.0-31.0) Seconds PTT Ratio POC pH (7.35-7.45) POC pCO2 (35-46) mmHg POC pO2 (80-95) mmHg POC HCO3 (19-24) jus/L POC Total CO2 (24-31) mmol/L POC Base Excess (-9-1.8) jus/L POC ABG O2 Sat (90-95) % Sodium (136-145) mmol/L Potassium (3.5-5.1) mmol/L Chloride (98-107) mmol/L Carbon Dioxide (21-32) mmol/L Anion Gap (3-11) BUN (7-18) mg/dl Creatinine (0.6-1.4) mg/dl Est Cr Clr Drug Dosing Est GFR ( Amer) ml/min Est GFR (Non-Af Amer) ml/min BUN/Creatinine Ratio (10-20) Glucose (70-99) mg/dl Lactate (0.4-2.0) mmol/L Calcium (8.5-10.1) mg/dl Phosphorus (2.5-4.9) mg/dl Magnesium (1.8-2.4) mg/dl Total Bilirubin (0.2-1) mg/dl AST (15-37) U/L ALT (12-78) U/L Alkaline Phosphatase (45-117) U/L Troponin I (0-0.045) ng/ml Total Protein (6.4-8.2) gm/dl Albumin (3.4-5.0) gm/dl Globulin (2.5-4.0) gm/dl Albumin/Globulin Ratio (0.9-2) Procalcitonin (0-0.5) ng/ml Urine Color Urine Appearance (Clear) Urine pH (4.5-7.5) Ur Specific [place] (1.000-1.030) Urine Protein (Negative) Urine Glucose (UA) (Negative) Urine Ketones (Negative) Urine Blood (Negative) Urine Nitrite (Negative) Urine Bilirubin (Negative) Urine Urobilinogen (Negative) Ur Leukocyte Esterase (Negative) Urine WBC (Auto) (0-5) /hpf Urine RBC (Auto) (0-4) /hpf U Hyaline Cast (Auto) (0-5) /lpf U Epithel Cells (Auto) (0-5) /lpf Urine Bacteria (Auto) (Negative) Urine Opiates Screen Neg (Neg) Ur Methadone, Qual Neg (Neg) Urine Barbiturates Neg (Neg) Ur Phencyclidine (PCP) Neg (Neg) U Amphetamin/Meth Scrn Neg (Neg) MDMA (Ecstasy) Screen Neg (Neg) U Benzodiazepines Scrn Pos H (Neg) Ur Cocaine Metabolite Neg (Neg) U Marijuana (THC) Screen Neg (Neg) COVID-19 Eval Order SARS-CoV-2 (PCR) (Negative) Administered Medications Enoxaparin Sodium (Enoxaparin Inj 40 Mg/0.4 Ml Syr) 40 mg SQ Q24H [facility] Stop: 03/23/21 13:38 Last Admin: 02/21/21 14:24 Dose: 40 mg Documented by: [id number] Fentanyl Citrate (Fentanyl Citrate 100 Mcg/2 Ml Vial) 100 mcg IV Q2H PRN PRN Reason: Severe Pain (7,8,9,10) on NRS Stop: 03/07/21 13:26 Last Admin: 02/21/21 16:04 Dose: 100 mcg Documented by: [id number] Dexmedetomidine HCl 200 mcg/ (Sodium Chloride) 50 mls @ 5.52 mls/hr IV .Q9H4M [facility]; Protocol Stop: 02/25/21 13:29 Last Titration: 02/21/21 16:33 Dose: 0.4 mcg/kg/hr, 5.5 mls/hr Documented by: [id number] Titration: 02/21/21 16:15 Dose: 0.3 mcg/kg/hr, 4.1 mls/hr Documented by: [id number] Titration: 02/21/21 15:40 Dose: 0.2 mcg/kg/hr, 2.8 mls/hr Documented by: [id number] Admin: 02/21/21 13:57 Dose: 0.4 mcg/kg/hr, 5.5 mls/hr Documented by: [id number] Cosigned by: [id number] Methylprednisolone 40 mg/ (Syringe) 0.64 mls @ 1.5 mls/min IV Q8H [facility] Stop: 03/23/21 13:59 Last Admin: 02/21/21 13:56 Dose: 1.5 mls/min Documented by: [id number] Levofloxacin/Dextrose (Levaquin/D5w) 750 mg in 150 mls @ 100 mls/hr IV Q48H [facility]; Protocol Stop: 02/28/21 13:59 Last Infusion: 02/21/21 15:43 Dose: 0 mls/hr Documented by: [id number] Admin: 02/21/21 14:24 Dose: 100 mls/hr Documented by: [id number] Nutritional Formula (Peptamen Intense Vhp 1.0 Blade 1,000 Ml Bag) 1,000 ml GT CONT LINDA; Protocol Stop: 03/23/21 13:44 Last Admin: 02/21/21 16:21 Dose: 1,000 ml Documented by: [id number] Discontinued Medications Albuterol (Albut/Ipratrop 3mg/0.5mg Neb 3 Ml Vial) 12 ml NEB ONE ONE Stop: 02/21/21 11:04 Last Admin: 02/21/21 11:41 Dose: 12 ml Documented by: [id number] Epinephrine HCl (Epinephrine 1.5" Ndl 0.1 Mg/Ml Syr) Confirm Administered Dose 1 mg IV .STK-MED ONE Stop: 02/21/21 10:52 Last Admin: 02/21/21 12:04 Dose: Not Given Documented by: [id number] Fentanyl Citrate (Fentanyl Citrate 100 Mcg/2 Ml Vial) 100 mcg IV NOW STA Stop: 02/21/21 11:12 Last Admin: 02/21/21 11:14 Dose: 100 mcg Documented by: [id number] Fentanyl Citrate (Fentanyl Bolus From Bag) 50 mcg IV Q60M PRN PRN Reason: Pain or Agitation Stop: 03/07/21 11:10 Last Admin: 02/21/21 11:36 Dose: 50 mcg Documented by: [id number] Sodium Chloride (Nss 1000ml) 1,000 mls @ 999 mls/hr IV .Q1H1M [facility] Stop: 02/21/21 12:15 Last Infusion: 02/21/21 11:45 Dose: 0 mls/hr Documented by: [id number] Admin: 02/21/21 11:09 Dose: 999 mls/hr Documented by: [id number] Magnesium Sulfate/Dextrose (Magnesium Sulfate / D5w) 1 gm in 100 mls @ 600 mls/hr IV Q10M [facility] Stop: 02/21/21 11:24 Last Infusion: 02/21/21 13:00 Dose: 0 mls/hr Documented by: [id number] Admin: 02/21/21 12:15 Dose: 150 mls/hr Documented by: [id number] Infusion: 02/21/21 12:00 Dose: 0 mls/hr Documented by: [id number] Admin: 02/21/21 11:20 Dose: 150 mls/hr Documented by: [id number] Propofol (Diprivan) 1,000 mg in 100 mls @ 1.635 mls/hr IV .Q24H [facility]; Protocol Stop: 02/24/21 11:14 Last Admin: 02/21/21 12:05 Dose: Not Given Documented by: [id number] Fentanyl Citrate (Fentanyl Drip) 1,250 mcg in 250 mls @ 5 mls/hr IV .Q50H [facility]; Protocol Stop: 03/07/21 11:14 Last Titration: 02/21/21 13:58 Dose: 0 mcg/hr, 0 mls/hr Documented by: [id number] Cosigned by: [id number] Titration: 02/21/21 11:38 Dose: 50 mcg/hr, 10 mls/hr Documented by: [id number] Cosigned by: [id number] Admin: 02/21/21 11:25 Dose: 25 mcg/hr, 5 mls/hr Documented by: [id number] Cosigned by: [id number] Midazolam HCl (Versed) 125 mg in 250 mls @ 2 mls/hr IV .Q96H STA; Protocol Stop: 02/25/21 11:11 Last Titration: 02/21/21 13:57 Dose: 0 mg/hr, 0 mls/hr Documented by: [id number] Cosigned by: [id number] Titration: 02/21/21 11:39 Dose: 2 mg/hr, 4 mls/hr Documented by: [id number] Cosigned by: [id number] Admin: 02/21/21 11:24 Dose: 1 mg/hr, 2 mls/hr Documented by: [id number] Cosigned by: [id number] Ceftriaxone Sodium (Rocephin) 1,000 mg in 50 mls @ 100 mls/hr IV NOW STA Stop: 02/21/21 14:08 Last Infusion: 02/21/21 14:34 Dose: 0 mls/hr Documented by: [id number] Admin: 02/21/21 13:56 Dose: 100 mls/hr Documented by: [id number] Sodium Chloride (Nss 1000ml) 1,000 mls @ 999 mls/hr IV .Q1H1M LINDA Stop: 02/21/21 16:30 Last Admin: 02/21/21 15:34 Dose: Not Given Documented by: [id number] Lactated Ringer's (Lr) 1,000 mls @ 999 mls/hr IV .Q1H1M ONE Stop: 02/21/21 16:32 Last Infusion: 02/21/21 16:36 Dose: 0 mls/hr Documented by: [id number] Admin: 02/21/21 15:35 Dose: 999 mls/hr Documented by: [id number] Lorazepam (Lorazepam 2 Mg/Ml Vial (Im Use)) Confirm Administered Dose 2 mg .ROUTE .STK-MED ONE Stop: 02/21/21 10:54 Last Admin: 02/21/21 10:54 Dose: 1 mg Documented by: [id number] Methylprednisolone (Methylprednisolone 125 Mg/2 Ml Vial) Confirm Administered Dose 125 mg .ROUTE .STK-MED ONE Stop: 02/21/21 10:53 Last Admin: 02/21/21 12:05 Dose: Not Given Documented by: [id number] Methylprednisolone (Methylprednisolone 125 Mg/2 Ml Vial) 125 mg IV NOW STA Stop: 02/21/21 11:04 Last Admin: 02/21/21 10:55 Dose: 125 mg Documented by: [id number] Midazolam HCl (Midazolam Bolus From Bag) 2 mg IV Q60M PRN PRN Reason: Sedation Stop: 03/23/21 11:10 Last Admin: 02/21/21 13:10 Dose: 2 mg Documented by: [id number] Miscellaneous (Rapid Sequence Induction Bag) Confirm Administered Dose 1 ea .ROUTE .STK-MED ONE Stop: 02/21/21 10:52 Last Admin: 02/21/21 12:05 Dose: 1 ea Documented by: [id number] Miscellaneous (Stat Iv Infusion Titration Per Protocol) 1 ea N/A NOW STA Stop: 02/21/21 11:12 Last Admin: 02/21/21 12:36 Dose: Not Given Documented by: [id number] Propofol (Propofol Iv Emulsion 10 Mg/Ml 100 Ml Vial) Confirm Administered Dose 1,000 mg IV .STK-MED ONE Stop: 02/21/21 11:05 Last Admin: 02/21/21 12:05 Dose: Not Given Documented by: [id number] Sodium Bicarbonate (Sodium Bicarb 8.4% Inj 50 Meq/50 Ml Syr) Confirm Administered Dose 50 meq IV .STK-MED ONE Stop: 02/21/21 10:52 Last Admin: 02/21/21 10:57 Dose: 50 meq Documented by: [id number] Sodium Bicarbonate (Sodium Bicarb 8.4% Inj 50 Meq/50 Ml Syr) Confirm Administered Dose 50 meq IV .STK-MED ONE Stop: 02/21/21 10:58 Last Admin: 02/21/21 10:58 Dose: 50 meq Documented by: [id number] Imaging Data Radiologist's Impression: Chest X-Ray 02/21/21 11:04 XR chest 1V portable CLINICAL HISTORY: SEPSIS COMPARISON STUDY: Chest CT May 09, 2020. Chest radiograph September 18, 2020. FINDINGS: Incidental note is made of postoperative findings within the cervical spine. Tip of endotracheal tube 6.5 cm above the danny. Lung hyperinflation with emphysema is noted. There are old bilateral rib fractures. There is no pneumothorax or pleural effusion. Upper lobe interstitial thickening is unchanged. IMPRESSION: 1. Tip of endotracheal tube 6.5 cm above the danny. 2. Emphysema. 3. No significant change in upper lobe interstitial thickening. ACT 112: Negative or not required by law. Electronically signed by: Daniel Gaitan M.D. 02/21/2021 11:25 AM Chest X-Ray 02/21/21 11:11 XR chest 1V portable CLINICAL HISTORY: repeat post advanced ETT COMPARISON STUDY: Chest radiograph February 21, 2021 at 10:48 AM. FINDINGS: Endotracheal tube has been advanced. The tip is now 4.3 cm above the danny. Postoperative findings within the cervical spine are incidentally noted. Lung hyperinflation with emphysema is noted. There are bilateral rib fractures. Upper lobe predominant interstitial thickening is unchanged. Cardiac size is normal. Mediastinal contours are normal. IMPRESSION: 1. Tip of endotracheal tube 4.3 cm above the danny. 2. Severe emphysema. 3. No change in upper lobe predominant interstitial thickening. ACT 112: Negative or not required by law. Electronically signed by: Daniel Gaitan M.D. 02/21/2021 11:26 AM Discharge Plan Visit Data Chief Complaint: Respiratory Distress Stated Complaint: RESPIRTORY DISTRESS Discharge Problem: Acute hypoxemic respiratory failure, Acute exacerbation of chronic obstructive pulmonary disease (COPD), Acute dehydration Patient Disposition: Admitted As Inpatient Discharge Instructions Interventions: ED Discharge Assessment Last Done: 02/21/21 13:05
[2021-02-21] MEDS: MAGNESIUM SULFATE / D5W 1 GM/100 ML BAG IV SCH ×2 (11:20→12:15)
--- NOTE | 2021-02-21 11:26 | XRay Report ---
XR chest 1V portable CLINICAL HISTORY: SEPSIS COMPARISON STUDY: Chest CT May 09, 2020. Chest radiograph September 18, 2020. FINDINGS: Incidental note is made of postoperative findings within the cervical spine. Tip of endotra cheal tube 6.5 cm above the danny. Lung hyperinflation with emphysema is noted. There are old bilate ral rib fractures. There is no pneumothorax or pleural effusion. Upper lobe interstitial thickening i s unchanged. IMPRESSION: 1. Tip of endotracheal tube 6.5 cm above the danny. 2. Emphysema. 3. No significant change in upper lobe interstitial thickening. ACT 112: Negative or not required by law. Electronically signed by: Daniel Gaitan M.D. 02/21/2021 11:25 AM
--- NOTE | 2021-02-21 11:27 | XRay Report ---
XR chest 1V portable CLINICAL HISTORY: repeat post advanced ETT COMPARISON STUDY: Chest radiograph February 21, 2021 at 10:48 AM. FINDINGS: Endotracheal tube has been advanced. The tip is now 4.3 cm above the danny. Postoperative findings within the cervical spine are incidentally noted. Lung hyperinflation with emphysema is note d. There are bilateral rib fractures. Upper lobe predominant interstitial thickening is unchanged. Ca rdiac size is normal. Mediastinal contours are normal. IMPRESSION: 1. Tip of endotracheal tube 4.3 cm above the danny. 2. Severe emphysema. 3. No change in upper lobe predominant interstitial thickening. ACT 112: Negative or not required by law. Electronically signed by: Daniel Gaitan M.D. 02/21/2021 11:26 AM
[2021-02-21 11:29] LABS: Basophils # (auto) 0.01 K/uL (0-0.2); Basophils % (auto) 0.1 %; Hematocrit (blood only) 37.5 % (42-52); Hemoglobin 11.8 g/dL (14.0-18.0); Immature Granulocytes # (auto) 0.03 K/uL (0.00-0.02); Immature Granulocytes % (auto) 0.3 %; Lymphocytes # (auto) 0.53 K/uL (1.2-3.4); Mean Corpuscular Hemoglobin 29.3 pg (25-34); Mean Corpuscular Hgb Conc 31.5 g/dL (32-36); Mean Corpuscular Volume 93.1 fL (80-100); Mean Platelet Volume 11.5 fL (7.4-10.4); Monocytes # (auto) 0.73 K/uL (0.11-0.59); Neutrophils % (auto) 87.6 %; Platelet Count 199 K/uL (130-400); RDW Coefficient of Variation 13.8 % (11.5-14.5); RDW Standard Deviation 47.3 fL (36.4-46.3); Red Blood Count 4.03 M/uL (4.7-6.1)
[2021-02-21 11:37] LABS: iSTAT Arterial Blood Gas HCO3 45 meg/L (19-24); iSTAT Arterial Blood Gas pCO2 70 mmHg (35-46); iSTAT Arterial Blood Gas pH 7.42 (7.35-7.45); iSTAT Arterial Blood Gas pO2 343 mmHg (80-95); iSTAT Carbon Dioxide > 40 mmol/L (24-31)
[2021-02-21 11:50] LABS: Alanine Aminotransferase 62 U/L (12-78); Aspartate Aminotransferase 77 U/L (15-37); BUN Creatinine Ratio 45.2 (10-20); Blood Urea Nitrogen 58 mg/dl (7-18); Calcium 8.2 mg/dl (8.5-10.1); Carbon Dioxide 39 mmol/L (21-32); Chloride 94 mmol/L (98-107); Est GFR (African American) 69.1 ml/min; Est GFR (Non-African American) 59.6 ml/min; Glucose 88 mg/dl (70-99); Magnesium 2.4 mg/dl (1.8-2.4); Potassium 3.8 mmol/L (3.5-5.1); Sodium 136 mmol/L (136-145)
[2021-02-21 11:55] LABS: Albumin Globulin Ratio 0.8 (0.9-2); Alkaline Phosphatase 94 U/L (45-117); Bilirubin,Total 0.4 mg/dl (0.2-1); Globulin 3.9 gm/dl (2.5-4.0); Phosphorus 6.6 mg/dl (2.5-4.9); Total Protein 6.9 gm/dl (6.4-8.2); Troponin I < 0.015 ng/ml (0-0.045)
[2021-02-21 11:55] LABS: INR 1.2 (0.9-1.1); Partial Thromboplastin Ratio 0.9; Partial Thromboplastin Time 23.9 Seconds (21.0-31.0); Prothrombin Time 12.4 Seconds (9.0-12.0)
[2021-02-21 12:14] LABS: Appearance Urine Clear (Clear); Bilirubin Urine Negative (Negative); Blood Urine Negative (Negative); Color Urine Dark Yellow; Epithelial Cell Urine Auto 20-30 /lpf (0-5); Glucose Urine UA Negative (Negative); Ketones Urine Trace (Negative); Leukocyte Esterase Urine Negative (Negative); Nitrite Urine Negative (Negative); Protein Urine 1+ (Negative); Specific Gravity Urine 1.022 (1.000-1.030); Urobilinogen Urine Negative (Negative); pH Urine 5.5 (4.5-7.5)
[2021-02-21 12:33] LABS: Cast Urine Automated >30 /lpf (0-5)
[2021-02-21 12:34] LABS: Bacteria Urine Automated 1+ (Negative); RBC Urine Automated 0-4 /hpf (0-4)
--- NOTE | 2021-02-21 12:38 | History & Physical Report ---
Date of Service February 21, 2021 Assessment & Plan (1) Acute on chronic respiratory failure with hypercapnia: Plan: COPD Exacerbation Pt is 61 y/o M with PMH chronic respiratory failure, COPD on 4 L nasal cannula, tobacco use disorder, anxiety, depression, prior h/o drug use presented to ER for respiratory distress noted this morning by family. Reported pt with progressive SOB and reported sensation of requiring more oxygen. Chronic cough, feels at baseline. Unaware of any fevers, vomiting, diarrhea, ill contacts or COVID 19 exposures. gives pt Klonipin. Today EMS found patient to be tachycardic, sats were in the 50s on room air. They tried to apply CPAP however patient was combative patient was placed on high flow oxygen. Upon arrival to ER patient was intubated.PCO2: 70. Patient with noted history hypercarbia in past. lactate and procalcitonin WNL. CXR: no acute infiltrate. UDS: +benzos Acute on chronic respiratory failure with hypercapnia, COPD In ER given 125 mg Solu-Medrol IV magnesium sulfate 1 g IV, 1 L NSS, DuoNeb Will start Rocephin for COPD exacerbation Patient to ICU, ventilator management per it project manager Continue Solu-Medrol Duonebs Pt previously followed with palliative care for end-stage COPD however was recently discharged. Anxiety/Depression: Taking Klonopin TID scheduled at home, managed by On sertraline daily Tobacco use disorder: Currently smoking 1ppd Will need smoking cessation counseling later in hospital course Insomnia: Currently taking Mirtazapine HS DVT Prophylaxis -Lovenox SQ Full Code as per discussion with pt's . Will need further discussion and possible palliative care consult. Patient's reports patient started to fill out POLST form however never completed Follows with Dr Diaz for routine care Pt was seen and care coordinated with Dr Valverde. See addendum History of Present Illness Chief Complaint: Respiratory distress Primary Care Provider: Chris Diaz DO Pt is 61 y/o M with PMH chronic respiratory failure, COPD on 4 L nasal cannula, tobacco use disorder, anxiety, depression, prior h/o drug use presented to ER for respiratory distress. History obtained from ER staff and pt's secondary to pt being intubated. Patient's reports that yesterday patient seemed a little bit more restless and agitated. She states patient uses either nasal cannula or mask oxygen at 4 L and yesterday was using mask. She reports went to bed last night around 930 and patient had mask on. She woke up around 1 AM as patient was reporting that he was cold and his mask was not on appropriately so she re-adjusted his mask. Is reported 4 AM today another family member checked on patient and found him laying flat in bed with eyes open but not responding much, and his legs are cold. Later in the morning EMS was called and is reported they found patient to be tachycardic, sats were in the 50s on room air. They tried to apply CPAP however patient was combative patient was placed on high flow oxygen. Upon arrival to ER patient was intubated. Patient's reports that she keeps his Klonopin in a safe and dispenses his Klonopin to him 3 times a day. She thinks that he is out of his Klonopin and does not recall giving him a dose last night. (Klonopin shown to be refilled on 01/26/2021 for 90-day supply). She reports patient has chronic cough, denies any noted increased cough. Denies any known fever or chills. She reports patient has been having progressive shortness of breath and has been complaining he feels like he needs more oxygen. She reports yesterday he did not use his DuoNeb nebulizers. Previously he was using 4 times a day. She reports past 2 days patient has not been eating. She reports he is stressed as his father has dementia and he is struggling dealing with this. She denies patient reporting any suicidal ideations. She is unaware that patient has access to any other medications. She reports patient still smoking 1 pack/day. Patient's denies any known vomiting or diarrhea, or any known ill contacts or COVID-19 exposures. She reports patient had 2 doses COVID-19 vaccine. Upon arrival to ER patient tachycardic, tachypneic. He was intubated. Patient found to have hypercarbia, PCO2: 70. Patient with noted history hypercarbia in past. Allergies Allergy/AdvReac Type Severity Reaction Status Date / Time No Known Allergies Allergy Verified 09/17/20 11:44 Home Medications Medication Instructions Recorded Confirmed Type ipratropium 0.5 mg-albuterol 3 mg 3 ml INHALATION Q4H PRN 03/20/19 02/21/21 History (2.5 mg base)/3 mL nebulization soln tizanidine 4 mg tablet (Zanaflex) 2 mg PO Q8H PRN 03/20/19 02/21/21 History albuterol sulfate 90 mcg/actuation 2 puff INHALATION Q4H PRN 04/05/20 02/21/21 H istory aerosol inhaler (Ventolin HFA) aspirin 81 mg tablet,delayed 81 mg PO DAILY 04/05/20 02/21/21 History release (Aspirin Low Dose) umeclidinium 62.5 mcg-vilanterol 1 inh INHALATION DAILY #60 ea 05/12/20 02/21/21 Rx 25 mcg/actuation powdr for inhalation (Anoro Ellipta) clonazepam 1 mg tablet 1 mg PO TID 08/17/20 02/21/21 History mirtazapine 45 mg tablet 45 mg PO HS 08/17/20 02/21/21 History sertraline 100 mg tablet (Zoloft) 200 mg PO HS 08/17/20 02/21/21 History Past Med/Surg History Medical History Anxiety Bipolar disorder Chronic pain Chronic respiratory failure COPD (chronic obstructive pulmonary disease) H/O: CVA (cerebrovascular accident) Tobacco use disorder Surgical History History of cervical spinal surgery History of hip surgery Family History Other Heart disease Social History Smoking Status: Current every day smoker Tobacco Type: Cigarettes packs per day: 1; Second Hand Exposure: No (UNKNOWN); Hx Alcohol Use: No Hx Substance Use: No Preferred Language: Barbadian Communication Ability: Unable 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: No Beliefs That Will Affect Care: None Current Living Situation: Spouse and Family Current Living Situation Comment: , Daughter, son in law, 2 grand children Feels Safe at Home: Yes Safety Concerns: Feels Safe At This Time Assistive Devices: BiPap, Cane, CPAP, Glasses and Oxygen - Continuous Review of Systems Review of Systems: Unobtainable due to endotracheal tube Physical Exam Physical Exam: General: thin, chronic ill appearing male, +intubated Head: normocephalic, atraumatic Eyes: pupils approx 2mm, reactive to light, conjunctiva non-injected, anicteric ENT: normal inspection external ears, nose, +ET tube in place Neck: supple, trachea midline Lungs: +intubated, diminished coarse breath sounds CV: RRR, no murmur, no pretibial edema Abd: normal BS, soft, non-tender Ext: no cyanosis, no erythema, no calf tenderness Neuro: +intubated, not moving extremities, not responding painful stimuli Skin: warm, dry Results & Data Results & Data ([facility]) Vital Signs (Past 12 Hours) Vital Signs Temp Pulse Pulse Resp BP Pulse Ox 02/21/21 12:32 100 02/21/21 12:20 70 25 H 92/69 L 100 02/21/21 12:15 84 15 82/65 L 96 02/21/21 12:10 76 23 111/91 100 02/21/21 12:05 70 24 94/75 L 02/21/21 12:04 37 C 02/21/21 12:00 71 24 101/79 100 02/21/21 11:50 72 24 111/88 100 02/21/21 11:41 70 24 100 02/21/21 11:40 70 21 117/88 100 02/21/21 11:30 71 25 H 123/92 100 02/21/21 11:20 79 20 106/75 100 02/21/21 11:10 96 H 24 114/81 100 02/21/21 11:00 101 H 48 H 158/88 H Laboratory Results Short CBC 02/21/21 02/21/21 Range/Units 11:23 11:23 WBC 10.50 (4.8-10.8) K/uL Hgb 11.8 L (14.0-18.0) g/dL Hct 37.5 L (42-52) % Plt Count 199 (130-400) K/uL POC pCO2 70 H (35-46) mmHg BMP 02/21/21 11:23 Sodium 136 Potassium 3.8 Chloride 94 L Carbon Dioxide 39 H BUN 58 H Creatinine 1.28 Glucose 88 Calcium 8.2 L Cardiac Enzymes 02/21/21 Range/Units 11:23 Troponin I < 0.015 (0-0.045) ng/ml Liver Function 02/21/21 Range/Units 11:23 Total Bilirubin 0.4 (0.2-1) mg/dl AST 77 H (15-37) U/L ALT 62 (12-78) U/L Alkaline Phosphatase 94 (45-117) U/L Albumin 3.0 L (3.4-5.0) gm/dl Urine 02/21/21 Range/Units 11:55 Urine Color Dark Yellow Urine Appearance Clear (Clear) Urine pH 5.5 (4.5-7.5) Ur Specific [place] 1.022 (1.000-1.030) Urine Protein 1+ H (Negative) Urine Glucose (UA) Negative (Negative) Diagnostic Findings Chest X-Ray 02/21/21 11:04 XR chest 1V portable CLINICAL HISTORY: SEPSIS COMPARISON STUDY: Chest CT May 09, 2020. Chest radiograph September 18, 2020. FINDINGS: Incidental note is made of postoperative findings within the cervical spine. Tip of endotracheal tube 6.5 cm above the danny. Lung hyperinflation with emphysema is noted. There are old bilateral rib fractures. There is no pneumothorax or pleural effusion. Upper lobe interstitial thickening is unchanged. IMPRESSION: 1. Tip of endotracheal tube 6.5 cm above the danny. 2. Emphysema. 3. No significant change in upper lobe interstitial thickening. ACT 112: Negative or not required by law. Electronically signed by: Daniel Gaitan M.D. 02/21/2021 11:25 AM Chest X-Ray 02/21/21 11:11 XR chest 1V portable CLINICAL HISTORY: repeat post advanced ETT COMPARISON STUDY: Chest radiograph February 21, 2021 at 10:48 AM. FINDINGS: Endotracheal tube has been advanced. The tip is now 4.3 cm above the danny. Postoperative findings within the cervical spine are incidentally noted. Lung hyperinflation with emphysema is noted. There are bilateral rib fractures. Upper lobe predominant interstitial thickening is unchanged. Cardiac size is normal. Mediastinal contours are normal. IMPRESSION: 1. Tip of endotracheal tube 4.3 cm above the danny. 2. Severe emphysema. 3. No change in upper lobe predominant interstitial thickening. ACT 112: Negative or not required by law. Electronically signed by: Daniel Gaitan M.D. 02/21/2021 11:26 AM Code Status & VTE Plan VTE Prophylaxis Plan VTE Prophylaxis will be ordered: Yes Supervising Physician Co-Signing Physician Notes History and physical exam performed by me as detailed by Faye Smiley, notable for 61 y/o M with PMH chronic respiratory failure, COPD on 4 L nasal cannula, tobacco use disorder, anxiety, depression, prior h/o drug use presented to ER for respiratory distress. Noted to be mostly unresponsive this morning Was reported to have had poor po intake in the past 2 days Patient is currently intubated with diminished breath sounds. Currently sedated. Responding to painful stimuli. Lab work notable for hemoglobin of 11.8, VBG showed pH of 7.42 with PCO2 of 70, creatinine of 1.08, phosphorus of 6.6. UDS positive for benzodiazepine. Covid test negative Chest x-ray showed emphysema with upper lobe interstitial thickening. Acute on chronic hypoxic respiratory failure Acute on chronic hypercapnic respiratory failure COPD exacerbation Metabolic encephalopathy Currently intubated client success specialist consult for evaluation and ventilator management. Admit to the ICU Follow-up outstanding results. Continue IV Solu-Medrol IV ceftriaxone Agree with other plans as detailed by Faye Webb PA-C
[2021-02-21 12:39] LABS: Amphetamines+Metham, Urine Neg (Neg); Barbiturates, Urine Neg (Neg); Benzodiazepine, Urine Pos (Neg); Cocaine, Urine Neg (Neg); MDMA (Ecstacy), Urine Neg (Neg); Methadone, Urine Neg (Neg); Opiate, Urine Neg (Neg); Phencyclidine, Urine Neg (Neg)
--- NOTE | 2021-02-21 13:24 | Critical Care Consultation ---
Date of Consultation February 21, 2021 Assessment & Plan (1) Acute on chronic respiratory failure with hypercapnia: Reason Critically Ill: 61-year-old male with acute COPD exacerbation PLAN: Neuro: Acute metabolic encephalopathy -Would consider sedation with Precedex -Intermittent bolus analgesia with fentanyl Resp: Acute exacerbation COPD Acute hypercapnic respiratory failure Acute on chronic hypoxic respiratory failure -3 L home oxygen therapy at baseline -Continue mechanical ventilation -Ceftriaxone and Levaquin antibiotic coverage -Bio fire ordered for respiratory pathogens -Tracheal suction for sputum culture Fluids/Renal: Mild elevation in creatinine continued close observation for acute kidney injury ID: COPD coverage with Rocephin and Levaquin GI/Nutrition: Start Peptamen for nutrition -15 mL to goal of 45 mL's per hour Heme: Anemia NOS DVT prophylaxis: Lovenox 40 daily Endocrine: ICU hyperglycemia protocol Vascular access: Peripheral IV Code Status: Full code Disposition: ICU (2) Acute metabolic encephalopathy: (3) Tobacco use disorder: (4) Anxiety: (5) Acute exacerbation of chronic obstructive pulmonary disease (COPD): Supervising Physician Co-Signing Physician Notes I have personally spent 55 minutes of critical care time in the direct management of this patient. This is a life/limb threatening event. This includes time spent evaluating patient, direct bedside care, chart review, placing orders, interpretation of diagnostic studies, discussion with media sales consultant s, patient, and/or family members regarding treatment decisions, as well as other required patient management activities. This time is exclusive of all separately billable procedures, and teaching time and separate from and in addition to any other critical care service time. History of Present Illness Reason for Consultation: Hypercapnic respiratory failure Requesting Physician: Rafa Mobley History of Present Illness History is obtained from prior records as there is no family present at bedside and the patient is intubated. He is a 61-year-old male with a past medical history of chronic respiratory failure COPD on 4 L nasal cannula, tobacco use disorder, anxiety depression, history of prior illicit drug use who presented in acute respiratory distress. Was reported he was in her normal state of health until approximately 1 AM when she was having difficulty with his facemask and he adjusted his mask later he was found at 4 AM largely unresponsive. There is documentation that the patient takes Klonopin 3 times a day and his believes he was out of his Klonopin however was refilled on January 26, 2021 with a 90-day supply. He has not been using his DuoNeb inhalers, last 2 days he has had decreased p.o. intake, he is having social issues with his father with dementia and he is still smoking 1 pack a day, no known COVID-19 exposures and he has been vaccinated with 2 dose Covid vaccine. During my evaluation the patient is largely unresponsive mildly agitated requiring an additional dose of Versed. Allergies Allergy/AdvReac Type Severity Reaction Status Date / Time No Known Allergies Allergy Verified 09/17/20 11:44 Home Medications Medication Instructions Recorded Confirmed Type ipratropium 0.5 mg-albuterol 3 mg 3 ml INHALATION Q4H PRN 03/20/19 02/21/21 History (2.5 mg base)/3 mL nebulization soln tizanidine 4 mg tablet (Zanaflex) 2 mg PO Q8H PRN 03/20/19 02/21/21 History albuterol sulfate 90 mcg/actuation 2 puff INHALATION Q4H PRN 04/05/20 02/21/21 History aerosol inhaler (Ventolin HFA) aspirin 81 mg tablet,delayed 81 mg PO DAILY 04/05/20 02/21/21 History release (Aspirin Low Dose) umeclidinium 62.5 mcg-vilanterol 1 inh INHALATION DAILY #60 ea 05/12/20 02/21/21 Rx 25 mcg/actuation powdr for inhalation (Anoro Ellipta) clonazepam 1 mg tablet 1 mg PO TID 08/17/20 02/21/21 History mirtazapine 45 mg tablet 45 mg PO HS 08/17/20 02/21/21 History sertraline 100 mg tablet (Zoloft) 200 mg PO HS 08/17/20 02/21/21 History Patient History Medical History Anxiety Bipolar disorder Chronic pain Chronic respiratory failure COPD (chronic obstructive pulmonary disease) H/O: CVA (cerebrovascular accident) Tobacco use disorder Surgical History History of cervical spinal surgery History of hip surgery Family History Other Heart disease Social History Smoking Status: Current every day smoker Tobacco Type: Cigarettes packs per day: 1; Second Hand Exposure: No (UNKNOWN); Hx Alcohol Use: No Hx Substance Use: No Preferred Language: Cuban Communication Ability: Unable Chair Frame Builder Required: No Beliefs That Will Affect Care: None Current Living Situation: Spouse and Family Current Living Situation Comment: , Daughter, son in law, 2 grand children Feels Safe at Home: Yes Safety Concerns: Feels Safe At This Time Assistive Devices: BiPap, Cane, CPAP, Glasses and Oxygen - Continuous Review of Systems Review of Systems: Unobtainable due to endotracheal tube Physical Exam Physical Exam: General: Glascow Coma Scale: Eyes: 4, Verbal 1T, Motor 5, Total 10 T. Skin: Warm, dry, multiple tattoos Head: Atraumatic Ears, nose, mouth and throat: airway obscured by endotracheal tube Cardiovascular: Normal peripheral perfusion Respiratory: no respiratory distress, distant sounds Gastrointestinal: Non distended, no hepatosplenomegaly Musculoskeletal: No deformity Results & Data Results & Data ([facility]) Vital Signs (Past 12 Hours) Vital Signs Temp Pulse Pulse Pulse Resp BP BP 02/21/21 13:00 58 L 22 110/79 02/21/21 12:50 58 L 16 112/85 02/21/21 12:40 57 L 15 115/82 02/21/21 12:32 02/21/21 12:30 62 18 101/77 02/21/21 12:27 37.0 C 70 25 H 92/69 L 02/21/21 12:20 70 25 H 92/69 L 02/21/21 12:15 84 15 82/65 L 02/21/21 12:10 76 23 111/91 02/21/21 12:05 70 24 94/75 L 02/21/21 12:04 37 C 02/21/21 12:00 71 24 101/79 02/21/21 11:50 72 24 111/88 02/21/21 11:41 70 24 02/21/21 11:40 70 21 117/88 02/21/21 11:30 71 25 H 123/92 02/21/21 11:20 79 20 106/75 02/21/21 11:10 96 H 24 114/81 02/21/21 11:00 101 H 48 H 158/88 H Pulse Ox 02/21/21 13:00 97 02/21/21 12:50 99 02/21/21 12:40 98 02/21/21 12:32 100 02/21/21 12:30 100 02/21/21 12:27 02/21/21 12:20 100 02/21/21 12:15 96 02/21/21 12:10 02/21/21 12:05 02/21/21 12:04 02/21/21 12:00 02/21/21 11:50 02/21/21 11:41 02/21/21 11:40 02/21/21 11:30 02/21/21 11:20 02/21/21 11:10 02/21/21 11:00 Laboratory Results 02/21/21 02/21/21 02/21/21 Range/Units 11:55 11:55 11:55 WBC (4.8-10.8) K/uL RBC (4.7-6.1) M/uL Hgb (14.0-18.0) g/dL Hct (42-52) % MCV (80-100) fL MCH (25-34) pg MCHC (32-36) g/dL RDW Std Deviation (36.4-46.3) fL RDW Coeff of Mani (11.5-14.5) % Plt Count (130-400) K/uL MPV (7.4-10.4) fL Immature Gran % (Auto) % Neut % (Auto) % Lymph % (Auto) % Eddy % (Auto) % Eos % (Auto) % Baso % (Auto) % Neut # (Auto) (1.4-6.5) K/uL Lymph # (Auto) (1.2-3.4) K/uL Eddy # (Auto) (0.11-0.59) K/uL Eos # (Auto) (0-0.5) K/uL Baso # (Auto) (0-0.2) K/uL Immature Gran # (Auto) (0.00-0.02) K/uL PT (9.0-12.0) Seconds INR (0.9-1.1) APTT (21.0-31.0) Seconds PTT Ratio POC pH (7.35-7.45) POC pCO2 (35-46) mmHg POC pO2 (80-95) mmHg POC HCO3 (19-24) jus/L POC Total CO2 (24-31) mmol/L POC Base Excess (-9-1.8) jus/L POC ABG O2 Sat (90-95) % Sodium (136-145) mmol/L Potassium (3.5-5.1) mmol/L Chloride (98-107) mmol/L Carbon Dioxide (21-32) mmol/L Anion Gap (3-11) BUN (7-18) mg/dl Creatinine (0.6-1.4) mg/dl Est Cr Clr Drug Dosing Est GFR ( Amer) ml/min Est GFR (Non-Af Amer) ml/min BUN/Creatinine Ratio (10-20) Glucose (70-99) mg/dl Lactate (0.4-2.0) mmol/L Calcium (8.5-10.1) mg/dl Phosphorus (2.5-4.9) mg/dl Magnesium (1.8-2.4) mg/dl Total Bilirubin (0.2-1) mg/dl AST (15-37) U/L ALT (12-78) U/L Alkaline Phosphatase (45-117) U/L Troponin I (0-0.045) ng/ml Total Protein (6.4-8.2) gm/dl Albumin (3.4-5.0) gm/dl Globulin (2.5-4.0) gm/dl Albumin/Globulin Ratio (0.9-2) Procalcitonin (0-0.5) ng/ml Urine Color Dark Yellow Urine Appearance Clear (Clear) Urine pH 5.5 (4.5-7.5) Ur Specific [place] 1.022 (1.000-1.030) Urine Protein 1+ H (Negative) Urine Glucose (UA) Negative (Negative) Urine Ketones Trace H (Negative) Urine Blood Negative (Negative) Urine Nitrite Negative (Negative) Urine Bilirubin Negative (Negative) Urine Urobilinogen Negative (Negative) Ur Leukocyte Esterase Negative (Negative) Urine WBC (Auto) 1-5 (0-5) /hpf Urine RBC (Auto) 0-4 (0-4) /hpf U Hyaline Cast (Auto) >30 H (0-5) /lpf U Epithel Cells (Auto) 20-30 H (0-5) /lpf Urine Bacteria (Auto) 1+ H (Negative) Urine Opiates Screen Neg (Neg) Ur Methadone, Qual Neg (Neg) Urine Barbiturates Neg (Neg) Ur Phencyclidine (PCP) Neg (Neg) U Amphetamin/Meth Scrn Neg (Neg) MDMA (Ecstasy) Screen Neg (Neg) U OH-Alprazolam Confrm Pending U Benzodiazepines Scrn Pos H (Neg) 7-Amino Clonazepam Pending Ur Nordiazepam Confirm Pending U OH-ethylflurazepam Pending U Lorazepam Cnf GC/MS Pending U Oxazepam Confm GC/MS Pending Ur Temazepam Confirm Pending U OH-Triazolam Confirm Pending U OH-Midazolam Confirm Pending Ur Cocaine Metabolite Neg (Neg) U Marijuana (THC) Screen Neg (Neg) Drug Screen Comment Pending COVID-19 Eval Order SARS-CoV-2 (PCR) (Negative) 02/21/21 02/21/21 02/21/21 Range/Units 11:44 11:37 11:34 WBC (4.8-10.8) K/uL RBC (4.7-6.1) M/uL Hgb (14.0-18.0) g/dL Hct (42-52) % MCV (80-100) fL MCH (25-34) pg MCHC (32-36) g/dL RDW Std Deviation (36.4-46.3) fL RDW Coeff of Mani (11.5-14.5) % Plt Count (130-400) K/uL MPV (7.4-10.4) fL Immature Gran % (Auto) % Neut % (Auto) % Lymph % (Auto) % Eddy % (Auto) % Eos % (Auto) % Baso % (Auto) % Neut # (Auto) (1.4-6.5) K/uL Lymph # (Auto) (1.2-3.4) K/uL Eddy # (Auto) (0.11-0.59) K/uL Eos # (Auto) (0-0.5) K/uL Baso # (Auto) (0-0.2) K/uL Immature Gran # (Auto) (0.00-0.02) K/uL PT 12.4 H (9.0-12.0) Seconds INR 1.2 H (0.9-1.1) APTT 23.9 (21.0-31.0) Seconds PTT Ratio 0.9 POC pH (7.35-7.45) POC pCO2 (35-46) mmHg POC pO2 (80-95) mmHg POC HCO3 (19-24) jus/L POC Total CO2 (24-31) mmol/L POC Base Excess (-9-1.8) jus/L POC ABG O2 Sat (90-95) % Sodium (136-145) mmol/L Potassium (3.5-5.1) mmol/L Chloride (98-107) mmol/L Carbon Dioxide (21-32) mmol/L Anion Gap (3-11) BUN (7-18) mg/dl Creatinine (0.6-1.4) mg/dl Est Cr Clr Drug Dosing Est GFR ( Amer) ml/min Est GFR (Non-Af Amer) ml/min BUN/Creatinine Ratio (10-20) Glucose (70-99) mg/dl Lactate 1.8 (0.4-2.0) mmol/L Calcium (8.5-10.1) mg/dl Phosphorus (2.5-4.9) mg/dl Magnesium (1.8-2.4) mg/dl Total Bilirubin (0.2-1) mg/dl AST (15-37) U/L ALT (12-78) U/L Alkaline Phosphatase (45-117) U/L Troponin I (0-0.045) ng/ml Total Protein (6.4-8.2) gm/dl Albumin (3.4-5.0) gm/dl Globulin (2.5-4.0) gm/dl Albumin/Globulin Ratio (0.9-2) Procalcitonin 0.13 (0-0.5) ng/ml Urine Color Urine Appearance (Clear) Urine pH (4.5-7.5) Ur Specific [place] (1.000-1.030) Urine Protein (Negative) Urine Glucose (UA) (Negative) Urine Ketones (Negative) Urine Blood (Negative) Urine Nitrite (Negative) Urine Bilirubin (Negative) Urine Urobilinogen (Negative) Ur Leukocyte Esterase (Negative) Urine WBC (Auto) (0-5) /hpf Urine RBC (Auto) (0-4) /hpf U Hyaline Cast (Auto) (0-5) /lpf U Epithel Cells (Auto) (0-5) /lpf Urine Bacteria (Auto) (Negative) Urine Opiates Screen (Neg) Ur Methadone, Qual (Neg) Urine Barbiturates (Neg) Ur Phencyclidine (PCP) (Neg) U Amphetamin/Meth Scrn (Neg) MDMA (Ecstasy) Screen (Neg) U OH-Alprazolam Confrm U Benzodiazepines Scrn (Neg) 7-Amino Clonazepam Ur Nordiazepam Confirm U OH-ethylflurazepam U Lorazepam Cnf GC/MS U Oxazepam Confm GC/MS Ur Temazepam Confirm U OH-Triazolam Confirm U OH-Midazolam Confirm Ur Cocaine Metabolite (Neg) U Marijuana (THC) Screen (Neg) Drug Screen Comment COVID-19 Eval Order SARS-CoV-2 (PCR) (Negative) 02/21/21 02/21/21 02/21/21 Range/Units 11:23 11:23 11:23 WBC 10.50 (4.8-10.8) K/uL RBC 4.03 L (4.7-6.1) M/uL Hgb 11.8 L (14.0-18.0) g/dL Hct 37.5 L (42-52) % MCV 93.1 (80-100) fL MCH 29.3 (25-34) pg MCHC 31.5 L (32-36) g/dL RDW Std Deviation 47.3 H (36.4-46.3) fL RDW Coeff of Mani 13.8 (11.5-14.5) % Plt Count 199 (130-400) K/uL MPV 11.5 H (7.4-10.4) fL Immature Gran % (Auto) 0.3 % Neut % (Auto) 87.6 % Lymph % (Auto) 5.0 % Eddy % (Auto) 7.0 % Eos % (Auto) 0.0 % Baso % (Auto) 0.1 % Neut # (Auto) 9.20 H (1.4-6.5) K/uL Lymph # (Auto) 0.53 L (1.2-3.4) K/uL Eddy # (Auto) 0.73 H (0.11-0.59) K/uL Eos # (Auto) 0.00 (0-0.5) K/uL Baso # (Auto) 0.01 (0-0.2) K/uL Immature Gran # (Auto) 0.03 H (0.00-0.02) K/uL PT (9.0-12.0) Seconds INR (0.9-1.1) APTT (21.0-31.0) Seconds PTT Ratio POC pH 7.42 (7.35-7.45) POC pCO2 70 H (35-46) mmHg POC pO2 343 H (80-95) mmHg POC HCO3 45 H (19-24) jus/L POC Total CO2 > 40 H* (24-31) mmol/L POC Base Excess 21.0 H (-9-1.8) jus/L POC ABG O2 Sat 100.0 H (90-95) % Sodium 136 (136-145) mmol/L Potassium 3.8 (3.5-5.1) mmol/L Chloride 94 L (98-107) mmol/L Carbon Dioxide 39 H (21-32) mmol/L Anion Gap 3.0 (3-11) BUN 58 H (7-18) mg/dl Creatinine 1.28 (0.6-1.4) mg/dl Est Cr Clr Drug Dosing Not Reportable Est GFR ( Amer) 69.1 ml/min Est GFR (Non-Af Amer) 59.6 ml/min BUN/Creatinine Ratio 45.2 H (10-20) Glucose 88 (70-99) mg/dl Lactate (0.4-2.0) mmol/L Calcium 8.2 L (8.5-10.1) mg/dl Phosphorus 6.6 H (2.5-4.9) mg/dl Magnesium 2.4 (1.8-2.4) mg/dl Total Bilirubin 0.4 (0.2-1) mg/dl AST 77 H (15-37) U/L ALT 62 (12-78) U/L Alkaline Phosphatase 94 (45-117) U/L Troponin I < 0.015 (0-0.045) ng/ml Total Protein 6.9 (6.4-8.2) gm/dl Albumin 3.0 L (3.4-5.0) gm/dl Globulin 3.9 (2.5-4.0) gm/dl Albumin/Globulin Ratio 0.8 L (0.9-2) Procalcitonin (0-0.5) ng/ml Urine Color Urine Appearance (Clear) Urine pH (4.5-7.5) Ur Specific [place] (1.000-1.030) Urine Protein (Negative) Urine Glucose (UA) (Negative) Urine Ketones (Negative) Urine Blood (Negative) Urine Nitrite (Negative) Urine Bilirubin (Negative) Urine Urobilinogen (Negative) Ur Leukocyte Esterase (Negative) Urine WBC (Auto) (0-5) /hpf Urine RBC (Auto) (0-4) /hpf U Hyaline Cast (Auto) (0-5) /lpf U Epithel Cells (Auto) (0-5) /lpf Urine Bacteria (Auto) (Negative) Urine Opiates Screen (Neg) Ur Methadone, Qual (Neg) Urine Barbiturates (Neg) Ur Phencyclidine (PCP) (Neg) U Amphetamin/Meth Scrn (Neg) MDMA (Ecstasy) Screen (Neg) U OH-Alprazolam Confrm U Benzodiazepines Scrn (Neg) 7-Amino Clonazepam Ur Nordiazepam Confirm U OH-ethylflurazepam U Lorazepam Cnf GC/MS U Oxazepam Confm GC/MS Ur Temazepam Confirm U OH-Triazolam Confirm U OH-Midazolam Confirm Ur Cocaine Metabolite (Neg) U Marijuana (THC) Screen (Neg) Drug Screen Comment COVID-19 Eval Order SARS-CoV-2 (PCR) (Negative) 02/21/21 02/21/21 Range/Units 11:07 11:07 WBC (4.8-10.8) K/uL RBC (4.7-6.1) M/uL Hgb (14.0-18.0) g/dL Hct (42-52) % MCV (80-100) fL MCH (25-34) pg MCHC (32-36) g/dL RDW Std Deviation (36.4-46.3) fL RDW Coeff of Mani (11.5-14.5) % Plt Count (130-400) K/uL MPV (7.4-10.4) fL Immature Gran % (Auto) % Neut % (Auto) % Lymph % (Auto) % Eddy % (Auto) % Eos % (Auto) % Baso % (Auto) % Neut # (Auto) (1.4-6.5) K/uL Lymph # (Auto) (1.2-3.4) K/uL Eddy # (Auto) (0.11-0.59) K/uL Eos # (Auto) (0-0.5) K/uL Baso # (Auto) (0-0.2) K/uL Immature Gran # (Auto) (0.00-0.02) K/uL PT (9.0-12.0) Seconds INR (0.9-1.1) APTT (21.0-31.0) Seconds PTT Ratio POC pH (7.35-7.45) POC pCO2 (35-46) mmHg POC pO2 (80-95) mmHg POC HCO3 (19-24) jus/L POC Total CO2 (24-31) mmol/L POC Base Excess (-9-1.8) jus/L POC ABG O2 Sat (90-95) % Sodium (136-145) mmol/L Potassium (3.5-5.1) mmol/L Chloride (98-107) mmol/L Carbon Dioxide (21-32) mmol/L Anion Gap (3-11) BUN (7-18) mg/dl Creatinine (0.6-1.4) mg/dl Est Cr Clr Drug Dosing Est GFR ( Amer) ml/min Est GFR (Non-Af Amer) ml/min BUN/Creatinine Ratio (10-20) Glucose (70-99) mg/dl Lactate (0.4-2.0) mmol/L Calcium (8.5-10.1) mg/dl Phosphorus (2.5-4.9) mg/dl Magnesium (1.8-2.4) mg/dl Total Bilirubin (0.2-1) mg/dl AST (15-37) U/L ALT (12-78) U/L Alkaline Phosphatase (45-117) U/L Troponin I (0-0.045) ng/ml Total Protein (6.4-8.2) gm/dl Albumin (3.4-5.0) gm/dl Globulin (2.5-4.0) gm/dl Albumin/Globulin Ratio (0.9-2) Procalcitonin (0-0.5) ng/ml Urine Color Urine Appearance (Clear) Urine pH (4.5-7.5) Ur Specific [place] (1.000-1.030) Urine Protein (Negative) Urine Glucose (UA) (Negative) Urine Ketones (Negative) Urine Blood (Negative) Urine Nitrite (Negative) Urine Bilirubin (Negative) Urine Urobilinogen (Negative) Ur Leukocyte Esterase (Negative) Urine WBC (Auto) (0-5) /hpf Urine RBC (Auto) (0-4) /hpf U Hyaline Cast (Auto) (0-5) /lpf U Epithel Cells (Auto) (0-5) /lpf Urine Bacteria (Auto) (Negative) Urine Opiates Screen (Neg) Ur Methadone, Qual (Neg) Urine Barbiturates (Neg) Ur Phencyclidine (PCP) (Neg) U Amphetamin/Meth Scrn (Neg) MDMA (Ecstasy) Screen (Neg) U OH-Alprazolam Confrm U Benzodiazepines Scrn (Neg) 7-Amino Clonazepam Ur Nordiazepam Confirm U OH-ethylflurazepam U Lorazepam Cnf GC/MS U Oxazepam Confm GC/MS Ur Temazepam Confirm U OH-Triazolam Confirm U OH-Midazolam Confirm Ur Cocaine Metabolite (Neg) U Marijuana (THC) Screen (Neg) Drug Screen Comment COVID-19 Eval Order Covid19 at [facility] SARS-CoV-2 (PCR) NEGATIVE (Negative) Coding Level of Care Code Critical Care 1st 30-74 mins Diagnoses Acute on chronic respiratory failure with hypercapnia J96.22 Acute metabolic encephalopathy G93.41 Tobacco use disorder F17.200 Anxiety F41.9 Acute exacerbation of chronic obstructive pulmonary disease (COPD) J44.1
[2021-02-21] MEDS ORDERED: fentaNYL citrate 100 MCG/2 ML VIAL IV PRN (13:27)
[2021-02-21] MEDS ORDERED: ENOXAPARIN INJ 40 MG/0.4 ML SYR SQ SCH (13:39)
[2021-02-21] MEDS ORDERED: ICU PROTOCOL FOR HYPERGLYCEMIA PRN (13:39)
[2021-02-21] MEDS ORDERED: cefTRIAXone SODIUM 1,000 MG/50 ML BAG IV STA (13:39)
[2021-02-21] MEDS ORDERED: PEPTAMEN INTENSE VHP 1.0 CAL 1,000 ML BAG GT SCH (13:45)
[2021-02-21] MEDS ORDERED: ALBUT/IPRATROP 3MG/0.5MG NEB 3 ML VIAL NEB PRN (13:48)
[2021-02-21] MEDS: methylPREDNISolone 40 MG in SYRINGE 0 ML IV SCH ×2 (13:56→21:42)
[2021-02-21] MEDS: DEXMEDETOMIDINE HCL 200 MCG in SODIUM CHLORIDE 0.9% 48 ML IV SCH ×2 (13:57→19:40)
[2021-02-21] MEDS ORDERED: levoFLOXacin/D5W 750 MG/150 ML BAG IV SCH (14:00)
[2021-02-21] MEDS ORDERED: ALBUT/IPRATROP 3MG/0.5MG NEB 3 ML VIAL NEB SCH (15:00)
--- NOTE | 2021-02-21 15:21 | XRay Report ---
KUB CLINICAL HISTORY: OGT placement COMPARISON STUDY: KUB and CT of the abdomen and pelvis November 27, 2019. FINDINGS: Tip of nasogastric tube is within the body of the stomach. Visualized bowel gas pattern is unremarkable. There is emphysema. IMPRESSION: Tip of nasogastric tube within the body of the stomach. ACT 112: Negative or not required by law. Electronically signed by: Daniel Gaitan M.D. 02/21/2021 3:19 PM
[2021-02-21] MEDS ORDERED: NOREPINEPHRINE/D5W 8 MG/508 ML IV ONE (15:28)
[2021-02-21] MEDS ORDERED: LACTATED RINGER'S 1,000 ML IV ONE (15:32)
[2021-02-21 16:02] LABS: Adenovirus PCR Not Detected (NotDetected); Bordetella parapertussis PCR Not Detected (NotDetected); Bordetella pertussis PCR Not Detected (NotDetected); Chlamydia pneumoniae PCR Not Detected (NotDetected); Coronavirus 229E PCR Not Detected (NotDetected); Coronavirus CoV-2 (COVID19)PCR Not Detected (NotDetected); Coronavirus HKU1 PCR Not Detected (NotDetected); Coronavirus NL63 PCR Not Detected (NotDetected); Coronavirus OC43PCR Not Detected (NotDetected); Human Metapneumovirus PCR Not Detected (NotDetected); Influenza A PCR Not Detected (NotDetected); Influenza B PCR Not Detected (NotDetected); Mycoplasma pneumoniae PCR Not Detected (NotDetected); Parainfluenza Virus 1 PCR Not Detected (NotDetected); Parainfluenza Virus 2 PCR Not Detected (NotDetected); Parainfluenza Virus 3 PCR Not Detected (NotDetected); Parainfluenza Virus 4 PCR Not Detected (NotDetected); Respiratory Syncytial VirusPCR Not Detected (NotDetected); Rhinovirus/Enterovirus PCR Not Detected (NotDetected)
[2021-02-21] MEDS: fentaNYL citrate 100 MCG/2 ML VIAL IV PRN (16:04)
[2021-02-21] MEDS ORDERED: ACETAMINOPHEN 1,000 MG/100 ML VIAL IV PRN (19:25)
[2021-02-21] MEDS ORDERED: SERTRALINE HCL 100 MG TABLET PO SCH (21:00)
[2021-02-22] MEDS: fentaNYL citrate 100 MCG/2 ML VIAL IV PRN ×3 (00:30→06:08)
[2021-02-22] MEDS: DEXMEDETOMIDINE HCL 200 MCG in SODIUM CHLORIDE 0.9% 48 ML IV SCH ×2 (00:53→04:42)
[2021-02-22 04:56] LABS: Hematocrit (blood only) 33.5 % (42-52); Hemoglobin 10.6 g/dL (14.0-18.0); Immature Granulocytes # (auto) 0.04 K/uL (0.00-0.02); Immature Granulocytes % (auto) 0.3 %; Lymphocytes # (auto) 0.61 K/uL (1.2-3.4); Mean Corpuscular Hemoglobin 29.5 pg (25-34); Mean Corpuscular Hgb Conc 31.6 g/dL (32-36); Mean Corpuscular Volume 93.3 fL (80-100); Mean Platelet Volume 12.1 fL (7.4-10.4); Monocytes % (auto) 8.2 %; Neutrophils # (auto) 10.49 K/uL (1.4-6.5); Neutrophils % (auto) 86.5 %; Platelet Count 168 K/uL (130-400); RDW Coefficient of Variation 14.1 % (11.5-14.5); RDW Standard Deviation 48.1 fL (36.4-46.3); Red Blood Count 3.59 M/uL (4.7-6.1); White Blood Count 12.14 K/uL (4.8-10.8)
[2021-02-22] MEDS: methylPREDNISolone 40 MG in SYRINGE 0 ML IV SCH (05:08)
[2021-02-22 05:19] LABS: iSTAT Allen Test Pass; iSTAT Arterial Blood Gas HCO3 43 meg/L (19-24); iSTAT Arterial Blood Gas pCO2 69 mmHg (35-46); iSTAT Arterial Blood Gas pO2 81 mmHg (80-95); iSTAT Carbon Dioxide > 40 mmol/L (24-31); iSTAT FiO2 40 %; iSTAT Site R Radial
[2021-02-22 05:26] LABS: BUN Creatinine Ratio 51.6 (10-20); Calcium 8.2 mg/dl (8.5-10.1); Creatinine Clr Calc Pharmacy 58.1 ml/min; Est GFR (African American) 94.2 ml/min; Est GFR (Non-African American) 81.3 ml/min; Magnesium 2.4 mg/dl (1.8-2.4); Potassium 4.2 mmol/L (3.5-5.1)
[2021-02-22 05:57] LABS: Phosphorus 3.1 mg/dl (2.5-4.9)
--- NOTE | 2021-02-22 07:09 | XRay Report ---
XR chest 1V portable CLINICAL HISTORY: f/u COMPARISON STUDY: No previous studies for comparison. FINDINGS: Tip of endotracheal tube is 6.1 cm above the danny. There are postoperative findings withi n the cervical spine. No pneumothorax or pleural effusion is noted. Severe emphysema is present. Ther e is no consolidation. Upper lobe predominant interstitial thickening is unchanged. Cardiac size is n ormal. There are old right rib fractures IMPRESSION: 1. Tip of endotracheal tube 6.1 cm above the danny. 2. Severe emphysema. 3. No consolidation identified. ACT 112: Negative or not required by law. Electronically signed by: Daniel Gaitan M.D. 02/22/2021 7:08 AM
--- NOTE | 2021-02-22 07:42 | Critical Care Progress Note ---
Date of Service February 22, 2021 Assessment & Plan (1) Acute on chronic respiratory failure with hypercapnia: Plan: Reason Critically Ill: 61-year-old male with acute COPD exacerbation PLAN: Neuro: CAM negative Resp: Acute exacerbation COPD Acute hypercapnic respiratory failure Acute on chronic hypoxic respiratory failure -3 L home oxygen therapy at baseline -Extubated this AM -While admitted received Ceftriaxone and Levaquin abx coverage -Leaving AMA today after being extubated and agitated yelling "Get the fuck away from me. I want you to call my fucking . You're fucking making fun of me. I'm going fucking home." Fluids/Renal: RAFIQ improved ID: Received COPD coverage with Rocephin and Levaquin GI/Nutrition: No acute issues Heme: Anemia NOS Endocrine: ICU hyperglycemia protocol Vascular access: Peripheral IV DVT prophylaxis: Lovenox 40 daily Code Status: Full code; unable to discuss code status due to uncooperative patient Disposition: Discharge home AMA (2) Acute exacerbation of chronic obstructive pulmonary disease (COPD): (3) Tobacco use disorder: Admission and Anticipated Discharge Date Admission Date: February 21, 2021 Supervising Physician Co-Signing Physician Notes Dr. Clancy was resident physician during care of patient. I separately evaluated patient for enrique portions of the history and the exam. I was present during the critical portion of medical decision making, and I discussed the case with the resident. I generally agree with the findings and plan. I personally extubated the patient this morning, the subjective notes of the resident were taken verbatim from the patient. We have contacted the patient's per his request. Patient is not agreeable with continued evaluation, he does appear to have capacity. I have completed written discharge instructions and myself and nursing of also given verbal discharge instructions encourage the patient to call 911 should he experience shortness of breath to continue with his current pulmonary toilet and to finish the Levaquin antibiotics. Of also encouraged him to follow-up with his primary care provider or resource agent as soon as possible, this week. Update 930: I notified the hospitalist team who was able to see the patient, I have ordered Levaquin and prednisone to be picked up at the pharmacy. Patient has left AGAINST MEDICAL ADVICE. Subjective Patient seen and evaluated at bedside this morning with scouring train operator chief, Dr. Torres. Uncooperative, agitated, awake, alert, pulling at ET tube. Extubated and started screaming, "Get the fuck away from me. I want you to call my fucking . You're fucking making fun of me. I'm going fucking home." Not cooperative upon questioning. Review of Systems Review of Systems: Unobtainable due to uncooperative status. Physical Exam Physical Exam: GENERAL: Agitated but otherwise in no acute distress. A/O x3. EYES: EOMI. Anicteric sclerae. HENT: Moist mucous membranes. RESPIRATORY: No respiratory distress. Extubated. PSYCHIATRIC: Uncooperative. Results & Data Results & Data ([facility]) Vital Signs (Past 12 Hours) Vital Signs Temp Pulse Resp BP Pulse Ox 02/22/21 06:12 60 16 118/77 97 02/22/21 05:41 57 L 16 124/76 100 02/22/21 05:11 56 L 16 113/69 99 02/22/21 04:55 56 L 18 98 02/22/21 04:42 56 L 16 109/55 L 98 02/22/21 04:12 57 L 17 103/59 L 100 02/22/21 03:42 37.9 C H 70 22 117/52 L 100 02/22/21 03:12 57 L 16 118/67 100 02/22/21 02:42 70 24 116/86 95 02/22/21 02:12 59 L 16 91/65 L 96 02/22/21 01:42 38.1 C H 59 L 18 99/64 L 100 02/22/21 01:12 38.2 C H 60 16 106/59 L 99 02/22/21 00:52 64 20 97 02/22/21 00:42 38.2 C H 65 16 93/58 L 98 02/22/21 00:12 38.1 C H 58 L 16 98/67 L 98 02/21/21 23:42 38.1 C H 59 L 16 98/61 L 97 02/21/21 23:12 38.2 C H 61 18 97/55 L 97 02/21/21 22:43 38.2 C H 61 18 90/53 L 96 02/21/21 22:12 38.0 C H 66 19 117/70 90 02/21/21 22:00 62 18 89 L 02/21/21 21:42 38.0 C H 65 20 89/59 L 91 02/21/21 21:12 37.9 C H 67 99/62 L 92 02/21/21 20:32 38.2 C H 65 20 122/73 96 Laboratory Results 02/22/21 02/22/21 02/22/21 Range/Units 05:06 04:43 04:43 WBC 12.14 H (4.8-10.8) K/uL RBC 3.59 L (4.7-6.1) M/uL Hgb 10.6 L (14.0-18.0) g/dL Hct 33.5 L (42-52) % MCV 93.3 (80-100) fL MCH 29.5 (25-34) pg MCHC 31.6 L (32-36) g/dL RDW Std Deviation 48.1 H (36.4-46.3) fL RDW Coeff of Mani 14.1 (11.5-14.5) % Plt Count 168 (130-400) K/uL MPV 12.1 H (7.4-10.4) fL Immature Gran % (Auto) 0.3 % Neut % (Auto) 86.5 % Lymph % (Auto) 5.0 % [place] % (Auto) 8.2 % Eos % (Auto) 0.0 % Baso % (Auto) 0.0 % Neut # (Auto) 10.49 H (1.4-6.5) K/uL Lymph # (Auto) 0.61 L (1.2-3.4) K/uL [place] # (Auto) 1.00 H (0.11-0.59) K/uL Eos # (Auto) 0.00 (0-0.5) K/uL Baso # (Auto) 0.00 (0-0.2) K/uL Immature Gran # (Auto) 0.04 H (0.00-0.02) K/uL PT (9.0-12.0) Seconds INR (0.9-1.1) APTT (21.0-31.0) Seconds PTT Ratio Sample Site R Radial POC pH 7.40 (7.35-7.45) POC pCO2 69 H (35-46) mmHg POC pO2 81 (80-95) mmHg POC HCO3 43 H (19-24) jus/L POC Total CO2 > 40 H* (24-31) mmol/L POC Base Excess 18.0 H (-9-1.8) jus/L POC ABG O2 Sat 95.0 (90-95) % Kameron Test Pass O2 Delivery Device Ventilator POC O2 Rate 16 Minute Ventilation 6.5 POC FiO2 40 % Tidal Volume 380 PEEP 5 Sodium 136 (136-145) mmol/L Potassium 4.2 (3.5-5.1) mmol/L Chloride 98 (98-107) mmol/L Carbon Dioxide 36 H (21-32) mmol/L Anion Gap 2.0 L (3-11) BUN 51 H (7-18) mg/dl Creatinine 0.99 (0.6-1.4) mg/dl Est Cr Clr Drug Dosing 58.1 Est GFR ( Amer) 94.2 ml/min Est GFR (Non-Af Amer) 81.3 ml/min BUN/Creatinine Ratio 51.6 H (10-20) Glucose 111 H (70-99) mg/dl POC Glucose (70-99) mg/dl Lactate (0.4-2.0) mmol/L Calcium 8.2 L (8.5-10.1) mg/dl Phosphorus Pending (2.5-4.9) mg/dl Magnesium 2.4 (1.8-2.4) mg/dl Total Bilirubin (0.2-1) mg/dl AST (15-37) U/L ALT (12-78) U/L Alkaline Phosphatase (45-117) U/L Troponin I (0-0.045) ng/ml Total Protein (6.4-8.2) gm/dl Albumin (3.4-5.0) gm/dl Globulin (2.5-4.0) gm/dl Albumin/Globulin Ratio (0.9-2) Procalcitonin (0-0.5) ng/ml Urine Color Urine Appearance (Clear) Urine pH (4.5-7.5) Ur Specific [place] (1.000-1.030) Urine Protein (Negative) Urine Glucose (UA) (Negative) Urine Ketones (Negative) Urine Blood (Negative) Urine Nitrite (Negative) Urine Bilirubin (Negative) Urine Urobilinogen (Negative) Ur Leukocyte Esterase (Negative) Urine WBC (Auto) (0-5) /hpf Urine RBC (Auto) (0-4) /hpf U Hyaline Cast (Auto) (0-5) /lpf U Epithel Cells (Auto) (0-5) /lpf Urine Bacteria (Auto) (Negative) Nasal Screen MRSA (PCR) (Negative) Urine Opiates Screen (Neg) Ur Methadone, Qual (Neg) Urine Barbiturates (Neg) Ur Phencyclidine (PCP) (Neg) U Amphetamin/Meth Scrn (Neg) MDMA (Ecstasy) Screen (Neg) U OH-Alprazolam Confrm U Benzodiazepines Scrn (Neg) 7-Amino Clonazepam Ur Nordiazepam Confirm U OH-ethylflurazepam U Lorazepam Cnf GC/MS U Oxazepam Confm GC/MS Ur Temazepam Confirm U OH-Triazolam Confirm U OH-Midazolam Confirm Ur Cocaine Metabolite (Neg) U Marijuana (THC) Screen (Neg) Drug Screen Comment Adenovirus (PCR) (NotDetected) B. pertussis DNA (PCR) (NotDetected) B.parapertussis DNA PCR (NotDetected) C. pneumoniae DNA (PCR) (NotDetected) Coronavirus OC43 (PCR) (NotDetected) Coronavirus HKU1 (PCR) (NotDetected) Coronavirus 229E (PCR) (NotDetected) COVID-19 Eval Order SARS-CoV-2 (PCR) (Negative) Coronavirus NL63 (PCR) (NotDetected) Human Metapneumovir PCR (NotDetected) Influenza Type A (PCR) (NotDetected) Influenza Type B (PCR) (NotDetected) M. pneumoniae (PCR) (NotDetected) Parainfluenza 1 (PCR) (NotDetected) Parainfluenza 2 (PCR) (NotDetected) Parainfluenza 3 (PCR) (NotDetected) Parainfluenza 4 (PCR) (NotDetected) RSV (PCR) (NotDetected) Entero/Rhino (PCR) (NotDetected) 02/21/21 02/21/21 02/21/21 Range/Units 21:44 14:52 14:52 WBC (4.8-10.8) K/uL RBC (4.7-6.1) M/uL Hgb (14.0-18.0) g/dL Hct (42-52) % MCV (80-100) fL MCH (25-34) pg MCHC (32-36) g/dL RDW Std Deviation (36.4-46.3) fL RDW Coeff of Mani (11.5-14.5) % Plt Count (130-400) K/uL MPV (7.4-10.4) fL Immature Gran % (Auto) % Neut % (Auto) % Lymph % (Auto) % [place] % (Auto) % Eos % (Auto) % Baso % (Auto) % Neut # (Auto) (1.4-6.5) K/uL Lymph # (Auto) (1.2-3.4) K/uL [place] # (Auto) (0.11-0.59) K/uL Eos # (Auto) (0-0.5) K/uL Baso # (Auto) (0-0.2) K/uL Immature Gran # (Auto) (0.00-0.02) K/uL PT (9.0-12.0) Seconds INR (0.9-1.1) APTT (21.0-31.0) Seconds PTT Ratio Sample Site POC pH (7.35-7.45) POC pCO2 (35-46) mmHg POC pO2 (80-95) mmHg POC HCO3 (19-24) jus/L POC Total CO2 (24-31) mmol/L POC Base Excess (-9-1.8) jus/L POC ABG O2 Sat (90-95) % Kameron Test O2 Delivery Device POC O2 Rate Minute Ventilation POC FiO2 % Tidal Volume PEEP Sodium (136-145) mmol/L Potassium (3.5-5.1) mmol/L Chloride (98-107) mmol/L Carbon Dioxide (21-32) mmol/L Anion Gap (3-11) BUN (7-18) mg/dl Creatinine (0.6-1.4) mg/dl Est Cr Clr Drug Dosing Est GFR ( Amer) ml/min Est GFR (Non-Af Amer) ml/min BUN/Creatinine Ratio (10-20) Glucose (70-99) mg/dl POC Glucose 115 H (70-99) mg/dl Lactate (0.4-2.0) mmol/L Calcium (8.5-10.1) mg/dl Phosphorus (2.5-4.9) mg/dl Magnesium (1.8-2.4) mg/dl Total Bilirubin (0.2-1) mg/dl AST (15-37) U/L ALT (12-78) U/L Alkaline Phosphatase (45-117) U/L Troponin I (0-0.045) ng/ml Total Protein (6.4-8.2) gm/dl Albumin (3.4-5.0) gm/dl Globulin (2.5-4.0) gm/dl Albumin/Globulin Ratio (0.9-2) Procalcitonin (0-0.5) ng/ml Urine Color Urine Appearance (Clear) Urine pH (4.5-7.5) Ur Specific [place] (1.000-1.030) Urine Protein (Negative) Urine Glucose (UA) (Negative) Urine Ketones (Negative) Urine Blood (Negative) Urine Nitrite (Negative) Urine Bilirubin (Negative) Urine Urobilinogen (Negative) Ur Leukocyte Esterase (Negative) Urine WBC (Auto) (0-5) /hpf Urine RBC (Auto) (0-4) /hpf U Hyaline Cast (Auto) (0-5) /lpf U Epithel Cells (Auto) (0-5) /lpf Urine Bacteria (Auto) (Negative) Nasal Screen MRSA (PCR) (Negative) Urine Opiates Screen (Neg) Ur Methadone, Qual (Neg) Urine Barbiturates (Neg) Ur Phencyclidine (PCP) (Neg) U Amphetamin/Meth Scrn (Neg) MDMA (Ecstasy) Screen (Neg) U OH-Alprazolam Confrm U Benzodiazepines Scrn (Neg) 7-Amino Clonazepam Ur Nordiazepam Confirm U OH-ethylflurazepam U Lorazepam Cnf GC/MS U Oxazepam Confm GC/MS Ur Temazepam Confirm U OH-Triazolam Confirm U OH-Midazolam Confirm Ur Cocaine Metabolite (Neg) U Marijuana (THC) Screen (Neg) Drug Screen Comment Adenovirus (PCR) Not Detected (NotDetected) B. pertussis DNA (PCR) Not Detected (NotDetected) B.parapertussis DNA PCR Not Detected (NotDetected) C. pneumoniae DNA (PCR) Not Detected (NotDetected) Coronavirus OC43 (PCR) Not Detected (NotDetected) Coronavirus HKU1 (PCR) Not Detected (NotDetected) Coronavirus 229E (PCR) Not Detected (NotDetected) COVID-19 Eval Order [facility] at [facility] SARS-CoV-2 (PCR) Not Detected (Negative) Coronavirus NL63 (PCR) Not Detected (NotDetected) Human Metapneumovir PCR Not Detected (NotDetected) Influenza Type A (PCR) Not Detected (NotDetected) Influenza Type B (PCR) Not Detected (NotDetected) M. pneumoniae (PCR) Not Detected (NotDetected) Parainfluenza 1 (PCR) Not Detected (NotDetected) Parainfluenza 2 (PCR) Not Detected (NotDetected) Parainfluenza 3 (PCR) Not Detected (NotDetected) Parainfluenza 4 (PCR) Not Detected (NotDetected) RSV (PCR) Not Detected (NotDetected) Entero/Rhino (PCR) Not Detected (NotDetected) 02/21/21 02/21/21 02/21/21 Range/Units 13:30 11:55 11:55 WBC (4.8-10.8) K/uL RBC (4.7-6.1) M/uL Hgb (14.0-18.0) g/dL Hct (42-52) % MCV (80-100) fL MCH (25-34) pg MCHC (32-36) g/dL RDW Std Deviation (36.4-46.3) fL RDW Coeff of Mani (11.5-14.5) % Plt Count (130-400) K/uL MPV (7.4-10.4) fL Immature Gran % (Auto) % Neut % (Auto) % Lymph % (Auto) % [place] % (Auto) % Eos % (Auto) % Baso % (Auto) % Neut # (Auto) (1.4-6.5) K/uL Lymph # (Auto) (1.2-3.4) K/uL [place] # (Auto) (0.11-0.59) K/uL Eos # (Auto) (0-0.5) K/uL Baso # (Auto) (0-0.2) K/uL Immature Gran # (Auto) (0.00-0.02) K/uL PT (9.0-12.0) Seconds INR (0.9-1.1) APTT (21.0-31.0) Seconds PTT Ratio Sample Site POC pH (7.35-7.45) POC pCO2 (35-46) mmHg POC pO2 (80-95) mmHg POC HCO3 (19-24) jus/L POC Total CO2 (24-31) mmol/L POC Base Excess (-9-1.8) jus/L POC ABG O2 Sat (90-95) % Kameron Test O2 Delivery Device POC O2 Rate Minute Ventilation POC FiO2 % Tidal Volume PEEP Sodium (136-145) mmol/L Potassium (3.5-5.1) mmol/L Chloride (98-107) mmol/L Carbon Dioxide (21-32) mmol/L Anion Gap (3-11) BUN (7-18) mg/dl Creatinine (0.6-1.4) mg/dl Est Cr Clr Drug Dosing Est GFR ( Amer) ml/min Est GFR (Non-Af Amer) ml/min BUN/Creatinine Ratio (10-20) Glucose (70-99) mg/dl POC Glucose (70-99) mg/dl Lactate (0.4-2.0) mmol/L Calcium (8.5-10.1) mg/dl Phosphorus (2.5-4.9) mg/dl Magnesium (1.8-2.4) mg/dl Total Bilirubin (0.2-1) mg/dl AST (15-37) U/L ALT (12-78) U/L Alkaline Phosphatase (45-117) U/L Troponin I (0-0.045) ng/ml Total Protein (6.4-8.2) gm/dl Albumin (3.4-5.0) gm/dl Globulin (2.5-4.0) gm/dl Albumin/Globulin Ratio (0.9-2) Procalcitonin (0-0.5) ng/ml Urine Color Urine Appearance (Clear) Urine pH (4.5-7.5) Ur Specific [place] (1.000-1.030) Urine Protein (Negative) Urine Glucose (UA) (Negative) Urine Ketones (Negative) Urine Blood (Negative) Urine Nitrite (Negative) Urine Bilirubin (Negative) Urine Urobilinogen (Negative) Ur Leukocyte Esterase (Negative) Urine WBC (Auto) (0-5) /hpf Urine RBC (Auto) (0-4) /hpf U Hyaline Cast (Auto) (0-5) /lpf U Epithel Cells (Auto) (0-5) /lpf Urine Bacteria (Auto) (Negative) Nasal Screen MRSA (PCR) Positive A (Negative) Urine Opiates Screen Neg (Neg) Ur Methadone, Qual Neg (Neg) Urine Barbiturates Neg (Neg) Ur Phencyclidine (PCP) Neg (Neg) U Amphetamin/Meth Scrn Neg (Neg) MDMA (Ecstasy) Screen Neg (Neg) U OH-Alprazolam Confrm Pending U Benzodiazepines Scrn Pos H (Neg) 7-Amino Clonazepam Pending Ur Nordiazepam Confirm Pending U OH-ethylflurazepam Pending U Lorazepam Cnf GC/MS Pending U Oxazepam Confm GC/MS Pending Ur Temazepam Confirm Pending U OH-Triazolam Confirm Pending U OH-Midazolam Confirm Pending Ur Cocaine Metabolite Neg (Neg) U Marijuana (THC) Screen Neg (Neg) Drug Screen Comment Pending Adenovirus (PCR) (NotDetected) B. pertussis DNA (PCR) (NotDetected) B.parapertussis DNA PCR (NotDetected) C. pneumoniae DNA (PCR) (NotDetected) Coronavirus OC43 (PCR) (NotDetected) Coronavirus HKU1 (PCR) (NotDetected) Coronavirus 229E (PCR) (NotDetected) COVID-19 Eval Order SARS-CoV-2 (PCR) (Negative) Coronavirus NL63 (PCR) (NotDetected) Human Metapneumovir PCR (NotDetected) Influenza Type A (PCR) (NotDetected) Influenza Type B (PCR) (NotDetected) M. pneumoniae (PCR) (NotDetected) Parainfluenza 1 (PCR) (NotDetected) Parainfluenza 2 (PCR) (NotDetected) Parainfluenza 3 (PCR) (NotDetected) Parainfluenza 4 (PCR) (NotDetected) RSV (PCR) (NotDetected) Entero/Rhino (PCR) (NotDetected) 02/21/21 02/21/21 02/21/21 Range/Units 11:55 11:44 11:37 WBC (4.8-10.8) K/uL RBC (4.7-6.1) M/uL Hgb (14.0-18.0) g/dL Hct (42-52) % MCV (80-100) fL MCH (25-34) pg MCHC (32-36) g/dL RDW Std Deviation (36.4-46.3) fL RDW Coeff of Mani (11.5-14.5) % Plt Count (130-400) K/uL MPV (7.4-10.4) fL Immature Gran % (Auto) % Neut % (Auto) % Lymph % (Auto) % [place] % (Auto) % Eos % (Auto) % Baso % (Auto) % Neut # (Auto) (1.4-6.5) K/uL Lymph # (Auto) (1.2-3.4) K/uL [place] # (Auto) (0.11-0.59) K/uL Eos # (Auto) (0-0.5) K/uL Baso # (Auto) (0-0.2) K/uL Immature Gran # (Auto) (0.00-0.02) K/uL PT 12.4 H (9.0-12.0) Seconds INR 1.2 H (0.9-1.1) APTT 23.9 (21.0-31.0) Seconds PTT Ratio 0.9 Sample Site POC pH (7.35-7.45) POC pCO2 (35-46) mmHg POC pO2 (80-95) mmHg POC HCO3 (19-24) jus/L POC Total CO2 (24-31) mmol/L POC Base Excess (-9-1.8) jus/L POC ABG O2 Sat (90-95) % Kameron Test O2 Delivery Device POC O2 Rate Minute Ventilation POC FiO2 % Tidal Volume PEEP Sodium (136-145) mmol/L Potassium (3.5-5.1) mmol/L Chloride (98-107) mmol/L Carbon Dioxide (21-32) mmol/L Anion Gap (3-11) BUN (7-18) mg/dl Creatinine (0.6-1.4) mg/dl Est Cr Clr Drug Dosing Est GFR ( Amer) ml/min Est GFR (Non-Af Amer) ml/min BUN/Creatinine Ratio (10-20) Glucose (70-99) mg/dl POC Glucose (70-99) mg/dl Lactate 1.8 (0.4-2.0) mmol/L Calcium (8.5-10.1) mg/dl Phosphorus (2.5-4.9) mg/dl Magnesium (1.8-2.4) mg/dl Total Bilirubin (0.2-1) mg/dl AST (15-37) U/L ALT (12-78) U/L Alkaline Phosphatase (45-117) U/L Troponin I (0-0.045) ng/ml Total Protein (6.4-8.2) gm/dl Albumin (3.4-5.0) gm/dl Globulin (2.5-4.0) gm/dl Albumin/Globulin Ratio (0.9-2) Procalcitonin (0-0.5) ng/ml Urine Color Dark Yellow Urine Appearance Clear (Clear) Urine pH 5.5 (4.5-7.5) Ur Specific [place] 1.022 (1.000-1.030) Urine Protein 1+ H (Negative) Urine Glucose (UA) Negative (Negative) Urine Ketones Trace H (Negative) Urine Blood Negative (Negative) Urine Nitrite Negative (Negative) Urine Bilirubin Negative (Negative) Urine Urobilinogen Negative (Negative) Ur Leukocyte Esterase Negative (Negative) Urine WBC (Auto) 1-5 (0-5) /hpf Urine RBC (Auto) 0-4 (0-4) /hpf U Hyaline Cast (Auto) >30 H (0-5) /lpf U Epithel Cells (Auto) 20-30 H (0-5) /lpf Urine Bacteria (Auto) 1+ H (Negative) Nasal Screen MRSA (PCR) (Negative) Urine Opiates Screen (Neg) Ur Methadone, Qual (Neg) Urine Barbiturates (Neg) Ur Phencyclidine (PCP) (Neg) U Amphetamin/Meth Scrn (Neg) MDMA (Ecstasy) Screen (Neg) U OH-Alprazolam Confrm U Benzodiazepines Scrn (Neg) 7-Amino Clonazepam Ur Nordiazepam Confirm U OH-ethylflurazepam U Lorazepam Cnf GC/MS U Oxazepam Confm GC/MS Ur Temazepam Confirm U OH-Triazolam Confirm U OH-Midazolam Confirm Ur Cocaine Metabolite (Neg) U Marijuana (THC) Screen (Neg) Drug Screen Comment Adenovirus (PCR) (NotDetected) B. pertussis DNA (PCR) (NotDetected) B.parapertussis DNA PCR (NotDetected) C. pneumoniae DNA (PCR) (NotDetected) Coronavirus OC43 (PCR) (NotDetected) Coronavirus HKU1 (PCR) (NotDetected) Coronavirus 229E (PCR) (NotDetected) COVID-19 Eval Order SARS-CoV-2 (PCR) (Negative) Coronavirus NL63 (PCR) (NotDetected) Human Metapneumovir PCR (NotDetected) Influenza Type A (PCR) (NotDetected) Influenza Type B (PCR) (NotDetected) M. pneumoniae (PCR) (NotDetected) Parainfluenza 1 (PCR) (NotDetected) Parainfluenza 2 (PCR) (NotDetected) Parainfluenza 3 (PCR) (NotDetected) Parainfluenza 4 (PCR) (NotDetected) RSV (PCR) (NotDetected) Entero/Rhino (PCR) (NotDetected) 02/21/21 02/21/21 02/21/21 Range/Units 11:34 11:23 11:23 WBC 10.50 (4.8-10.8) K/uL RBC 4.03 L (4.7-6.1) M/uL Hgb 11.8 L (14.0-18.0) g/dL Hct 37.5 L (42-52) % MCV 93.1 (80-100) fL MCH 29.3 (25-34) pg MCHC 31.5 L (32-36) g/dL RDW Std Deviation 47.3 H (36.4-46.3) fL RDW Coeff of Mani 13.8 (11.5-14.5) % Plt Count 199 (130-400) K/uL MPV 11.5 H (7.4-10.4) fL Immature Gran % (Auto) 0.3 % Neut % (Auto) 87.6 % Lymph % (Auto) 5.0 % [place] % (Auto) 7.0 % Eos % (Auto) 0.0 % Baso % (Auto) 0.1 % Neut # (Auto) 9.20 H (1.4-6.5) K/uL Lymph # (Auto) 0.53 L (1.2-3.4) K/uL [place] # (Auto) 0.73 H (0.11-0.59) K/uL Eos # (Auto) 0.00 (0-0.5) K/uL Baso # (Auto) 0.01 (0-0.2) K/uL Immature Gran # (Auto) 0.03 H (0.00-0.02) K/uL PT (9.0-12.0) Seconds INR (0.9-1.1) APTT (21.0-31.0) Seconds PTT Ratio Sample Site POC pH 7.42 (7.35-7.45) POC pCO2 70 H (35-46) mmHg POC pO2 343 H (80-95) mmHg POC HCO3 45 H (19-24) jus/L POC Total CO2 > 40 H* (24-31) mmol/L POC Base Excess 21.0 H (-9-1.8) jus/L POC ABG O2 Sat 100.0 H (90-95) % Kameron Test O2 Delivery Device POC O2 Rate Minute Ventilation POC FiO2 % Tidal Volume PEEP Sodium (136-145) mmol/L Potassium (3.5-5.1) mmol/L Chloride (98-107) mmol/L Carbon Dioxide (21-32) mmol/L Anion Gap (3-11) BUN (7-18) mg/dl Creatinine (0.6-1.4) mg/dl Est Cr Clr Drug Dosing Est GFR ( Amer) ml/min Est GFR (Non-Af Amer) ml/min BUN/Creatinine Ratio (10-20) Glucose (70-99) mg/dl POC Glucose (70-99) mg/dl Lactate (0.4-2.0) mmol/L Calcium (8.5-10.1) mg/dl Phosphorus (2.5-4.9) mg/dl Magnesium (1.8-2.4) mg/dl Total Bilirubin (0.2-1) mg/dl AST (15-37) U/L ALT (12-78) U/L Alkaline Phosphatase (45-117) U/L Troponin I (0-0.045) ng/ml Total Protein (6.4-8.2) gm/dl Albumin (3.4-5.0) gm/dl Globulin (2.5-4.0) gm/dl Albumin/Globulin Ratio (0.9-2) Procalcitonin 0.13 (0-0.5) ng/ml Urine Color Urine Appearance (Clear) Urine pH (4.5-7.5) Ur Specific [place] (1.000-1.030) Urine Protein (Negative) Urine Glucose (UA) (Negative) Urine Ketones (Negative) Urine Blood (Negative) Urine Nitrite (Negative) Urine Bilirubin (Negative) Urine Urobilinogen (Negative) Ur Leukocyte Esterase (Negative) Urine WBC (Auto) (0-5) /hpf Urine RBC (Auto) (0-4) /hpf U Hyaline Cast (Auto) (0-5) /lpf U Epithel Cells (Auto) (0-5) /lpf Urine Bacteria (Auto) (Negative) Nasal Screen MRSA (PCR) (Negative) Urine Opiates Screen (Neg) Ur Methadone, Qual (Neg) Urine Barbiturates (Neg) Ur Phencyclidine (PCP) (Neg) U Amphetamin/Meth Scrn (Neg) MDMA (Ecstasy) Screen (Neg) U OH-Alprazolam Confrm U Benzodiazepines Scrn (Neg) 7-Amino Clonazepam Ur Nordiazepam Confirm U OH-ethylflurazepam U Lorazepam Cnf GC/MS U Oxazepam Confm GC/MS Ur Temazepam Confirm U OH-Triazolam Confirm U OH-Midazolam Confirm Ur Cocaine Metabolite (Neg) U Marijuana (THC) Screen (Neg) Drug Screen Comment Adenovirus (PCR) (NotDetected) B. pertussis DNA (PCR) (NotDetected) B.parapertussis DNA PCR (NotDetected) C. pneumoniae DNA (PCR) (NotDetected) Coronavirus OC43 (PCR) (NotDetected) Coronavirus HKU1 (PCR) (NotDetected) Coronavirus 229E (PCR) (NotDetected) COVID-19 Eval Order SARS-CoV-2 (PCR) (Negative) Coronavirus NL63 (PCR) (NotDetected) Human Metapneumovir PCR (NotDetected) Influenza Type A (PCR) (NotDetected) Influenza Type B (PCR) (NotDetected) M. pneumoniae (PCR) (NotDetected) Parainfluenza 1 (PCR) (NotDetected) Parainfluenza 2 (PCR) (NotDetected) Parainfluenza 3 (PCR) (NotDetected) Parainfluenza 4 (PCR) (NotDetected) RSV (PCR) (NotDetected) Entero/Rhino (PCR) (NotDetected) 02/21/21 02/21/21 02/21/21 Range/Units 11:23 11:07 11:07 WBC (4.8-10.8) K/uL RBC (4.7-6.1) M/uL Hgb (14.0-18.0) g/dL Hct (42-52) % MCV (80-100) fL MCH (25-34) pg MCHC (32-36) g/dL RDW Std Deviation (36.4-46.3) fL RDW Coeff of Mani (11.5-14.5) % Plt Count (130-400) K/uL MPV (7.4-10.4) fL Immature Gran % (Auto) % Neut % (Auto) % Lymph % (Auto) % [place] % (Auto) % Eos % (Auto) % Baso % (Auto) % Neut # (Auto) (1.4-6.5) K/uL Lymph # (Auto) (1.2-3.4) K/uL [place] # (Auto) (0.11-0.59) K/uL Eos # (Auto) (0-0.5) K/uL Baso # (Auto) (0-0.2) K/uL Immature Gran # (Auto) (0.00-0.02) K/uL PT (9.0-12.0) Seconds INR (0.9-1.1) APTT (21.0-31.0) Seconds PTT Ratio Sample Site POC pH (7.35-7.45) POC pCO2 (35-46) mmHg POC pO2 (80-95) mmHg POC HCO3 (19-24) jus/L POC Total CO2 (24-31) mmol/L POC Base Excess (-9-1.8) jus/L POC ABG O2 Sat (90-95) % [place] Test O2 Delivery Device POC O2 Rate Minute Ventilation POC FiO2 % [place] Volume PEEP Sodium 136 (136-145) mmol/L Potassium 3.8 (3.5-5.1) mmol/L Chloride 94 L (98-107) mmol/L Carbon Dioxide 39 H (21-32) mmol/L Anion Gap 3.0 (3-11) BUN 58 H (7-18) mg/dl Creatinine 1.28 (0.6-1.4) mg/dl Est Cr Clr Drug Dosing Not Reportable Est GFR ( Amer) 69.1 ml/min Est GFR (Non-Af Amer) 59.6 ml/min BUN/Creatinine Ratio 45.2 H (10-20) Glucose 88 (70-99) mg/dl POC Glucose (70-99) mg/dl Lactate (0.4-2.0) mmol/L Calcium 8.2 L (8.5-10.1) mg/dl Phosphorus 6.6 H (2.5-4.9) mg/dl Magnesium 2.4 (1.8-2.4) mg/dl Total Bilirubin 0.4 (0.2-1) mg/dl AST 77 H (15-37) U/L ALT 62 (12-78) U/L Alkaline Phosphatase 94 (45-117) U/L Troponin I < 0.015 (0-0.045) ng/ml Total Protein 6.9 (6.4-8.2) gm/dl Albumin 3.0 L (3.4-5.0) gm/dl Globulin 3.9 (2.5-4.0) gm/dl Albumin/Globulin Ratio 0.8 L (0.9-2) Procalcitonin (0-0.5) ng/ml Urine Color Urine Appearance (Clear) Urine pH (4.5-7.5) Ur Specific [place] (1.000-1.030) Urine Protein (Negative) Urine Glucose (UA) (Negative) Urine Ketones (Negative) Urine Blood (Negative) Urine Nitrite (Negative) Urine Bilirubin (Negative) Urine Urobilinogen (Negative) Ur Leukocyte Esterase (Negative) Urine WBC (Auto) (0-5) /hpf Urine RBC (Auto) (0-4) /hpf U Hyaline Cast (Auto) (0-5) /lpf U Epithel Cells (Auto) (0-5) /lpf Urine Bacteria (Auto) (Negative) Nasal Screen MRSA (PCR) (Negative) Urine Opiates Screen (Neg) Ur Methadone, Qual (Neg) Urine Barbiturates (Neg) Ur Phencyclidine (PCP) (Neg) U Amphetamin/Meth Scrn (Neg) MDMA (Ecstasy) Screen (Neg) U [place]-Alprazolam Confrm U Benzodiazepines Scrn (Neg) 7-Amino Clonazepam Ur Nordiazepam Confirm U OH-ethylflurazepam U Lorazepam Cnf GC/MS U Oxazepam Confm GC/MS Ur Temazepam Confirm U [place]-Triazolam Confirm U OH-Midazolam Confirm Ur Cocaine Metabolite (Neg) U Marijuana (THC) Screen (Neg) Drug Screen Comment Adenovirus (PCR) (NotDetected) B. pertussis DNA (PCR) (NotDetected) B.parapertussis DNA PCR (NotDetected) C. pneumoniae DNA (PCR) (NotDetected) Coronavirus OC43 (PCR) (NotDetected) Coronavirus HKU1 (PCR) (NotDetected) Coronavirus 229E (PCR) (NotDetected) COVID-19 Eval Order Covid19 at [facility] SARS-CoV-2 (PCR) NEGATIVE (Negative) Coronavirus NL63 (PCR) (NotDetected) Human Metapneumovir PCR (NotDetected) Influenza Type A (PCR) (NotDetected) Influenza Type B (PCR) (NotDetected) M. pneumoniae (PCR) (NotDetected) Parainfluenza 1 (PCR) (NotDetected) Parainfluenza 2 (PCR) (NotDetected) Parainfluenza 3 (PCR) (NotDetected) Parainfluenza 4 (PCR) (NotDetected) RSV (PCR) (NotDetected) Entero/Rhino (PCR) (NotDetected)
--- NOTE | 2021-02-22 07:42 | Billing Data ---
Date of Service February 22, 2021 Coding Level of Care Code 60663 Subseq Hosp Care Lvl 3
--- NOTE | 2021-02-22 08:42 | Electrocardiogram Report ---
Test Reason : Blood Pressure : / mmHG Vent. Rate : 071 BPM Atrial Rate : 071 BPM P-R Int : 136 ms QRS Dur : 072 ms QT Int : 374 ms P-R-T Axes : 071 080 094 degrees QTc Int : 406 ms Normal sinus rhythm Minor Anterior ST elevation, most consistent with repolarization variant Borderline ECG When compared with ECG of 17-SEP-2020 10:35, No significant change was found Confirmed by Rivas Alan ([id number]) on 02/22/2021 8:41:24 AM Referred By: REFERRED SELF Confirmed By:Rivas Alan
--- NOTE | 2021-02-22 08:51 | Billing Data ---
Date of Service February 22, 2021 Coding Level of Care Code 30483 Subseq Hosp Care Lvl 3
[2021-02-22] MEDS ORDERED: ENOXAPARIN INJ 40 MG/0.4 ML SYR SQ SCH (09:00)
[2021-02-22] MEDS ORDERED: cefTRIAXone SODIUM 1,000 MG in DEXTROSE 5% 50 ML IV SCH (14:00)
--- NOTE | 2021-02-22 15:32 | Discharge Summary ---
Date of Service February 22, 2021 Admission HPI Per Admitting Provider Pt is 61 y/o M with PMH chronic respiratory failure, COPD on 4 L nasal cannula, tobacco use disorder, anxiety, depression, prior h/o drug use presented to ER for respiratory distress. History obtained from ER staff and pt's secondary to pt being intubated. Patient's reports that yesterday patient seemed a little bit more restless and agitated. She states patient uses either nasal cannula or mask oxygen at 4 L and yesterday was using mask. She reports went to bed last night around 930 and patient had mask on. She woke up around 1 AM as patient was reporting that he was cold and his mask was not on appropriately so she re-adjusted his mask. Is reported 4 AM today another family member checked on patient and found him laying flat in bed with eyes open but not responding much, and his legs are cold. Later in the morning EMS was called and is reported they found patient to be tachycardic, sats were in the 50s on room air. They tried to apply CPAP however patient was combative patient was placed on high flow oxygen. Upon arrival to ER patient was intubated. Patient's reports that she keeps his Klonopin in a safe and dispenses his Klonopin to him 3 times a day. She thinks that he is out of his Klonopin and does not recall giving him a dose last night. (Klonopin shown to be refilled on 01/26/2021 for 90-day supply). She reports patient has chronic cough, denies any noted increased cough. Denies any known fever or chills. She reports patient has been having progressive shortness of breath and has been complaining he feels like he needs more oxygen. She reports yesterday he did not use his DuoNeb nebulizers. Previously he was using 4 times a day. She reports past 2 days patient has not been eating. She reports he is stressed as his father has dementia and he is struggling dealing with this. She denies patient reporting any suicidal ideations. She is unaware that patient has access to any other medications. She reports patient still smoking 1 pack/day. Patient's denies any known vomiting or diarrhea, or any known ill contacts or COVID-19 exposures. She reports patient had 2 doses COVID-19 vaccine. Upon arrival to ER patient tachycardic, tachypneic. He was intubated. Patient found to have hypercarbia, PCO2: 70. Patient with noted history hypercarbia in past. Admission Exam Per Admitting Provider General: thin, chronic ill appearing male, +intubated Head: normocephalic, atraumatic Eyes: pupils approx 2mm, reactive to light, conjunctiva non-injected, anicteric ENT: normal inspection external ears, nose, +ET tube in place Neck: supple, trachea midline Lungs: +intubated, diminished coarse breath sounds CV: RRR, no murmur, no pretibial edema Abd: normal BS, soft, non-tender Ext: no cyanosis, no erythema, no calf tenderness Neuro: +intubated, not moving extremities, not responding painful stimuli Skin: warm, dry Principal Diagnosis Acute on chronic hypoxic respiratory failure Acute on chronic hypercapnic respiratory failure COPD exacerbation Metabolic encephalopathy Discharge Exam Declined evaluation Discharge Data Allergies Allergy/AdvReac Type Severity Reaction Status Date / Time No Known Allergies Allergy Verified 09/17/20 11:44 Consultations 02/21/21 12:03 ED Decision to Admit Stat 02/21/21 13:39 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 Chronic cough, feels at baseline. Unaware of any fevers, vomiting, diarrhea, ill contacts or COVID 19 exposures. gives pt Klonipin. EMS found patient to be tachycardic, sats were in the 50s on room air. They tried to apply CPAP however patient was combative patient was placed on high flow oxygen. Upon arrival to ER patient was intubated.PCO2: 70. Patient with noted history hypercarbia in past. lactate and procalcitonin WNL. CXR: no acute infiltrate. UDS: +benzos In ER given 125 mg Solu-Medrol IV magnesium sulfate 1 g IV, 1 L NSS, DuoNeb Was started on ceftriaxone and levofloxacin. Was evaluated by department specialist and admitted to the ICU Was started on Solu-Medrol IV Once patient mental status improved, he became aggressive towards ICU staff. He was extubated to his mask this morning. After which he has been using expletive language and was aggressive towards the nurse and other ICU staff requesting to be discharged. He declined any further evaluation or treatment I called the and updated her about the patient and his decisions. Patient left the hospital AGAINST MEDICAL ADVICE. Total Time Total Time Spent Total Time Spent (In Minutes): 35 Total Time Includes: Communication With Other Providers and Other Discharge Plan Discharge Items Patient Disposition: Against Medical Advice Reason For Visit: ACUTE RESPIRATORY FAILURE Condition on Discharge: Fair Activity: Resume your previous activity Activity Comment: you need to stop smoking, your lungs will not tolerate much more tobacco sm Non-emergency contact: Primary Care Provider Follow-up/Referrals: Chris Diaz DO [Primary Care Provider] - (Follow up this week as soon as possible) Pending Studies at Discharge: Yes Stand-Alone Forms: My GL 2ours, Smoking Cessation Skilled Items Patient informed of condition?: Yes DNR: No Discharge Level of Care: Other Discharge Prognosis: Improving Medications and DC Order Prescriptions: New levofloxacin 750 mg tablet 750 mg PO DAILY 7 Days Qty: 7 RF: 0 prednisone 20 mg tablet 40 mg PO DAILY Qty: 10 RF: 0 Continued aspirin [Aspirin Low Dose] 81 mg Tablet,Delayed Release (Dr/Ec) 81 mg PO DAILY RF: 0 albuterol sulfate [Ventolin HFA] 90 mcg/actuation HFA aerosol inhaler 2 puff INHALATION Q4H PRN (Reason: Shortness Of Breath Or Wheezing) RF: 0 mirtazapine 45 mg tablet 45 mg PO HS RF: 0 sertraline [Zoloft] 100 mg tablet 200 mg PO HS RF: 0 clonazepam 1 mg tablet 1 mg PO TID RF: 0 ipratropium-albuterol 0.5 mg-3 mg(2.5 mg base)/3 mL solution for nebulization 3 ml inhalation Q4H PRN (Reason: Shortness Of Breath Or Wheezing) RF: 0 tizanidine [Zanaflex] 4 mg tablet 2 mg PO Q8H PRN (Reason: Muscle Spasm) RF: 0 Anoro Ellipta 62.5-25 mcg/actuation blister with device 1 inh inhalation DAILY Qty: 60 RF: 0 Discharge Orders: Left Against Medical Advice (Routine); Ordered 02/22/21 Ordered By: Dinorah Smith/Other Patient Handouts: COPD: Using Inhalers Admission Data Admit Date/Time: 02/21/21 12:15 Attending Provider: Dinorah Valverde I. Admit Provider: Dinorah Valverde I. Primary Care Provider: Chris Diaz Other Providers: Dinorah Valverde I. ; Melvin Torres Other Interventions: Discharge Summary Assessment (RN) Last Done: 02/22/21 08:09
--- NOTE | 2021-02-24 07:29 | Communication Note ---
Date of Service: February 24, 2021 sputum culture resultd with Dietrich-sensitive pseudomonas. Patient was ordered levaquin x 7 days on day of leaving hospital. Coding Level of Care Code None
[2021-02-25 08:11] LABS: 7-Aminoclonaz, Confirm 300 ng/mL (<25); Hydro-Alp Ur, GC/MS NEGATIVE ng/mL (<25); Hydroxyethylflurazepam, Conf NEGATIVE ng/mL (<50); Hydroxymidazolam Ur, GC/MS NEGATIVE ng/mL (<50); Hydroxytriazolam NEGATIVE ng/mL (<50); Lorazepam, Ur GC/MS NEGATIVE ng/mL (<50); Nordiazepam, Confirm NEGATIVE ng/mL (<50); Oxazepam Ur, GC/MS NEGATIVE ng/mL (<50); Temazepam, Confirm NEGATIVE ng/mL (<50)
== END 2021-02-22 09:00 | disposition left against medical advice (07) | DRG 208 ==
LOC: ED 10:49 → 1E 12:15

== ENCOUNTER 2021-03-25 05:38 | Observation (INO) ==
--- NOTE | 2021-03-25 06:16 | Emergency Department Note ---
Impression & Plan Acute hypercapnic respiratory failure, Altered mental status Admission to the [facility] service ED Provider Note NAME: ZE BO AGE: 61 SEX: M ARRIVES VIA: Ambulance INFORMANT: Patient, EMS ED PROVIDER(S): Mojgan Zurita DO CHIEF COMPLAINT: Hypoxia and altered mental status PLAN: Disposition: Admission to the [facility] Condition: Guarded MEDICAL DECISION MAKING: This is a 61-year-old male patient who was found on the floor with an altered m ental status. Patient was off of his chronic supplemental oxygen. Upon EMS arrival, the patient had a low O2 saturation in the 80s. Upon arrival in the emergency department, the patient was lethargic and at times somnolent. When he could be aroused, he did answer questions appropriately. O2 saturations were in the mid 90s on his usual 4 L of supplemental oxygen. Chest x-ray showed no acute pulmonary consolidation or infiltrate. ABG showed severe hypercapnia with a PCO2 greater than 100. pH was 7.2. Was placed on BiPAP. I attempted to contact the patient's at the direction of the patient to discuss whether or not he would stay in the hospital but got no answer on the phone. The patient was willing to stay. [facility] for [facility] management. Triage Nursing notes reviewed and agree with them. Additional history obtained from EMS Prior medical records reviewed Vital Signs: reviewed and remarkable for bradycardia and hypoxia Differential diagnosis: Aspiration pneumonia, hypercapnic respiratory failure, acute CVA, drug overdose ER treatment provided: BiPAP Diagnostics interpreted by me: ECG: Sinus bradycardia [address] segment elevation or signs of ischemia. There is no ectopy. Cardiac Monitoring: Sinus bradycardia at 56 Laboratory studies: See below Imaging studies: As per my interpretation Portable chest x-ray: Diffuse interstitial markings greater on the right than the left. HPI: 61/M arrives for evaluation of altered mental status. This is a 61-year-old male patient with history of COPD and CVA who presents to the emergency department with hypoxia. The patient was found on the floor by his family with an altered mental status. The patient laid there for an unknown amount of time off of his home oxygen. The patient remains with an altered mental status upon arrival here in the emergency department. ROS: See above HPI for pertinent positives & negatives. A total of 10 systems reviewed and were otherwise negative. PAST MEDICAL HISTORY:See Below PAST SURGICAL HISTORY:See Below FAMILY HISTORY:See Below SOCIAL HISTORY:See Below HOME MEDICATIONS:See list ALLERGIES:None VITALS:See Below PHYSICAL EXAMINATION: HEENT: Head - normocephalic and atraumatic Pupils are equal, round, and reactive to light. Extraocular eye muscles are intact, and sclera are anicte alla. Nose - moist nasal mucosa without discharge. Mouth - moist buccal mucosa. Oropharynx is nonerythematous and there is no tonsillar exudate or edema noted. Neck: Supple; no JVD or cervical lymphadenopathy. There is no nuchal rigidity Heart: Bradycardic rate and rhythm. There is a normal S1 and S2 with no murmurs, clicks, or gallops appreciated. Lungs: Diminished breath sounds in all lung sherman Abdomen: Soft, completely nontender, nondistended, with good bowel sounds. There are no palpable pulsatile masses or hepatosplenomegaly. There is no guarding, rigidity, or rebound noted. Extremities: No evidence of cyanosis, clubbing, or edema. There are easily palpable peripheral pulses. Skin: warm and dry with good turgor and no rashes. ED COURSE: Times/Reassessments: 0540: The patient was evaluated in room C9 A septic protocol was performed. Laboratory studies were drawn as above. Order was placed for continuous cardiac monitoring. The patient was in a sinus bradycardia at a rate of 56. Portable chest x-ray was performed. O2 saturations remained stable on the patient supplemental oxygen through nasal cannula. The patient went for a CT scan of the brain which was unremarkable. Upon return from radiology, I had a conversation with the patient about his wishes with regards to admission to the hospital. He suggested that I discuss this with his . I was unable to get a hold of her. I asked him if he was willing to be admitted to the hospital and he said if it was necessary and he would only agree to a couple of days. The patient remained quite lethargic and an ABG was performed which showed a pH of 7.29 and a PCO2 of 107. PO2 of 103 bicarb of 52.4. This confirmed hypercapnic respiratory failure. The patient was placed on BiPAP. I discussed the case with the [facility] hospitalist and they will evaluate for further management. Mojgan Zurita, Past Med/Surg History Medical History (Updated 03/25/21 @ 16:51 by Lazaro Garcia MD) Anxiety Bipolar disorder Chronic pain Chronic respiratory failure COPD (chronic obstructive pulmonary disease) End stage COPD H/O: CVA (cerebrovascular accident) Tobacco use disorder Surgical History History of cervical spinal surgery History of hip surgery Family History Other Heart disease Social History Smoking Status: Current every day smoker Tobacco Type: Cigarettes packs per day: 1; Second Hand Exposure: No (UNKNOWN); Do You Dip or Chew Tobacco: No; Hx Alcohol Use: No Hx Substance Use: Yes Substance Use Type Other:: MEHT IN PER OLD CHART Preferred Language: Kiswahili Communication Ability: Effective Manager International Required: No Beliefs That Will Affect Care: None Current Living Situation: Spouse and Family Current Living Situation Comment: , Daughter, son in law, 2 grand children Other Information That Helps Us Care for You: No Feels Safe at Home: Yes Safety Concerns: Feels Safe At This Time Assistive Devices: CPAP, Nebulizer and Oxygen - Continuous Allergies Allergies Allergy/AdvReac Type Severity Reaction Status Date / Time No Known Allergies Allergy Verified 09/17/20 11:44 Home Meds Home Medications Medication Instructions Recorded Confirmed ipratropium 0.5 mg-albuterol 3 mg 3 ml INHALATION Q4H PRN 03/20/19 03/25/21 (2.5 mg base)/3 mL nebulization soln tizanidine 4 mg tablet (Zanaflex) 2 mg PO Q6H PRN 03/20/19 03/25/21 albuterol sulfate 90 mcg/actuation 2 puff INHALATION Q4H PRN 04/05/20 03/25/21 aerosol inhaler (Ventolin HFA) aspirin 81 mg tablet,delayed 81 mg PO DAILY 04/05/20 03/25/21 release (Aspirin Low Dose) clonazepam 1 mg tablet 1 mg PO TID 08/17/20 03/25/21 mirtazapine 45 mg tablet 22.5 mg PO HS 08/17/20 03/25/21 sertraline 100 mg tablet (Zoloft) 200 mg PO HS 08/17/20 03/25/21 olanzapine 2.5 mg tablet 2.5 mg PO HS 03/25/21 03/25/21 Previous Rx's Medication Instructions Recorded umeclidinium 62.5 mcg-vilanterol 1 inh INHALATION DAILY #60 ea 05/12/20 25 mcg/actuation powdr for inhalation (Anoro Ellipta) Results & Data (ED) Vital Signs Vital Signs - 24 hr 03/25/21 05:45 03/25/21 05:55 03/25/21 06:00 Temperature Temperature Source Pulse Rate 56 L 70 57 L Pulse Rate [Apical] Pulse Rate from SpO2 Sensor 56 L 59 L 58 L Respiratory Rate 19 16 19 Respiratory Effort / Characteristics Blood Pressure Blood Pressure [Left Arm] Blood Pressure Mean Blood Pressure Mean [Left Arm] Pulse Oximetry 99 100 100 Oxygen Delivery Method Nasal Cannula Nasal Cannula Oxygen Flow Rate 4 4 Fraction of Inspired Oxygen Sepsis Recent Fever Within 48 Hours Sepsis New/Unexplained Change in Mental Status Sepsis Action Taken by Nursing 03/25/21 06:05 03/25/21 06:10 03/25/21 06:18 Temperature 36.5 C Temperature Source Oral Pulse Rate 57 L 58 L 57 L Pulse Rate [Apical] Pulse Rate from SpO2 Sensor 58 L 58 L Respiratory Rate 21 21 Respiratory Effort / Characteristics Spontaneous Blood Pressure Blood Pressure [Left Arm] Blood Pressure Mean Blood Pressure Mean [Left Arm] Pulse Oximetry 100 100 97 Oxygen Delivery Method Nasal Cannula Oxygen Flow Rate 4 Fraction of Inspired Oxygen Sepsis Recent Fever Within 48 Hours No Sepsis New/Unexplained Change in Mental Status Yes Sepsis Action Taken by Nursing No Action Required 03/25/21 06:30 03/25/21 06:31 03/25/21 06:33 Temperature Temperature Source Pulse Rate 63 63 Pulse Rate [Apical] Pulse Rate from SpO2 Sensor Respiratory Rate 21 17 Respiratory Effort / Characteristics Non-Labored Blood Pressure 126/76 Blood Pressure [Left Arm] Blood Pressure Mean 92 Blood Pressure Mean [Left Arm] Pulse Oximetry 96 95 95 Oxygen Delivery Method Nasal Cannula Nasal Cannula Nasal Cannula Oxygen Flow Rate 4 2 4 Fraction of Inspired Oxygen Sepsis Recent Fever Within 48 Hours Sepsis New/Unexplained Change in Mental Status Sepsis Action Taken by Nursing 03/25/21 07:30 03/25/21 08:00 03/25/21 08:18 Temperature Temperature Source Pulse Rate Pulse Rate [Apical] Pulse Rate from SpO2 Sensor Respiratory Rate Respiratory Effort / Characteristics Blood Pressure Blood Pressure [Left Arm] Blood Pressure Mean Blood Pressure Mean [Left Arm] Pulse Oximetry Oxygen Delivery Method Nasal Cannula BiPAP Nasal Cannula Oxygen Flow Rate Fraction of Inspired Oxygen Sepsis Recent Fever Within 48 Hours Sepsis New/Unexplained Change in Mental Status Sepsis Action Taken by Nursing 03/25/21 08:25 03/25/21 08:32 03/25/21 09:00 Temperature Temperature Source Pulse Rate 65 Pulse Rate [Apical] 62 Pulse Rate from SpO2 Sensor Respiratory Rate 17 14 Respiratory Effort / Characteristics Spontaneous Blood Pressure Blood Pressure [Left Arm] 107/62 Blood Pressure Mean Blood Pressure Mean [Left Arm] 77 Pulse Oximetry 97 99 Oxygen Delivery Method BiPAP BiPAP Oxygen Flow Rate Fraction of Inspired Oxygen 40 Sepsis Recent Fever Within 48 Hours Sepsis New/Unexplained Change in Mental Status Sepsis Action Taken by Nursing Laboratory Data Result diagrams: 03/25/21 06:10 03/25/21 06:10 Lab Results 03/25/21 03/25/21 03/25/21 Range/Units 05:53 05:53 06:10 WBC 7.93 (4.8-10.8) K/uL RBC 4.49 L (4.7-6.1) M/uL Hgb 13.2 L (14.0-18.0) g/dL Hct 43.6 (42-52) % MCV 97.1 (80-100) fL MCH 29.4 (25-34) pg MCHC 30.3 L (32-36) g/dL RDW Std Deviation 47.3 H (36.4-46.3) fL RDW Coeff of Mani 13.3 (11.5-14.5) % Plt Count 188 (130-400) K/uL MPV 11.3 H (7.4-10.4) fL Immature Gran % (Auto) 0.0 % Neut % (Auto) 85.1 % Lymph % (Auto) 9.6 % [place] % (Auto) 4.8 % Eos % (Auto) 0.4 % Baso % (Auto) 0.1 % Neut # (Auto) 6.75 H (1.4-6.5) K/uL Lymph # (Auto) 0.76 L (1.2-3.4) K/uL [place] # (Auto) 0.38 (0.11-0.59) K/uL Eos # (Auto) 0.03 (0-0.5) K/uL Baso # (Auto) 0.01 (0-0.2) K/uL Immature Gran # (Auto) 0.00 (0.00-0.02) K/uL PT (9.0-12.0) Seconds INR (0.9-1.1) APTT (21.0-31.0) Seconds PTT Ratio POC pH (7.35-7.45) POC pCO2 (35-46) mmHg POC pO2 (80-95) mmHg POC HCO3 (19-24) jus/L POC Total CO2 (24-31) mmol/L POC Base Excess (-9-1.8) jus/L POC ABG O2 Sat (90-95) % Sodium (136-145) mmol/L Potassium (3.5-5.1) mmol/L Chloride (98-107) mmol/L Carbon Dioxide (21-32) mmol/L Anion Gap (3-11) BUN (7-18) mg/dl Creatinine (0.6-1.4) mg/dl Est Cr Clr Drug Dosing ml/min Est GFR ( Amer) ml/min Est GFR (Non-Af Amer) ml/min BUN/Creatinine Ratio (10-20) Glucose (70-99) mg/dl Lactate (0.4-2.0) mmol/L Calcium (8.5-10.1) mg/dl Magnesium (1.8-2.4) mg/dl Total Bilirubin (0.2-1) mg/dl AST (15-37) U/L ALT (12-78) U/L Alkaline Phosphatase (45-117) U/L Troponin I (0-0.045) ng/ml Total Protein (6.4-8.2) gm/dl Albumin (3.4-5.0) gm/dl Globulin (2.5-4.0) gm/dl Albumin/Globulin Ratio (0.9-2) Procalcitonin (0-0.5) ng/ml COVID-19 Eval Order Covid19 at [facility] SARS-CoV-2 (PCR) NEGATIVE (Negative) 03/25/21 03/25/21 03/25/21 Range/Units 06:10 06:10 06:53 WBC (4.8-10.8) K/uL RBC (4.7-6.1) M/uL Hgb (14.0-18.0) g/dL Hct (42-52) % MCV (80-100) fL MCH (25-34) pg MCHC (32-36) g/dL RDW Std Deviation (36.4-46.3) fL RDW Coeff of Mani (11.5-14.5) % Plt Count (130-400) K/uL MPV (7.4-10.4) fL Immature Gran % (Auto) % Neut % (Auto) % Lymph % (Auto) % [place] % (Auto) % Eos % (Auto) % Baso % (Auto) % Neut # (Auto) (1.4-6.5) K/uL Lymph # (Auto) (1.2-3.4) K/uL [place] # (Auto) (0.11-0.59) K/uL Eos # (Auto) (0-0.5) K/uL Baso # (Auto) (0-0.2) K/uL Immature Gran # (Auto) (0.00-0.02) K/uL PT 10.1 (9.0-12.0) Seconds INR 1.0 (0.9-1.1) APTT 24.9 (21.0-31.0) Seconds PTT Ratio 0.9 POC pH (7.35-7.45) POC pCO2 (35-46) mmHg POC pO2 (80-95) mmHg POC HCO3 (19-24) jus/L POC Total CO2 (24-31) mmol/L POC Base Excess (-9-1.8) jus/L POC ABG O2 Sat (90-95) % Sodium 134 L (136-145) mmol/L Potassium 3.7 (3.5-5.1) mmol/L Chloride 89 L (98-107) mmol/L Carbon Dioxide 40 H (21-32) mmol/L Anion Gap 5.0 (3-11) BUN 30 H (7-18) mg/dl Creatinine 0.91 (0.6-1.4) mg/dl Est Cr Clr Drug Dosing 76.0 ml/min Est GFR ( Amer) 104.3 ml/min Est GFR (Non-Af Amer) 90.0 ml/min BUN/Creatinine Ratio 32.6 H (10-20) Glucose 107 H (70-99) mg/dl Lactate 1.2 (0.4-2.0) mmol/L Calcium 9.2 (8.5-10.1) mg/dl Magnesium 2.4 (1.8-2.4) mg/dl Total Bilirubin 0.3 (0.2-1) mg/dl AST 23 (15-37) U/L ALT 22 (12-78) U/L Alkaline Phosphatase 86 (45-117) U/L Troponin I < 0.015 (0-0.045) ng/ml Total Protein 7.5 (6.4-8.2) gm/dl Albumin 3.4 (3.4-5.0) gm/dl Globulin 4.1 H (2.5-4.0) gm/dl Albumin/Globulin Ratio 0.8 L (0.9-2) Procalcitonin (0-0.5) ng/ml COVID-19 Eval Order SARS-CoV-2 (PCR) (Negative) 03/25/21 03/25/21 Range/Units 06:59 07:57 WBC (4.8-10.8) K/uL RBC (4.7-6.1) M/uL Hgb (14.0-18.0) g/dL Hct (42-52) % MCV (80-100) fL MCH (25-34) pg MCHC (32-36) g/dL RDW Std Deviation (36.4-46.3) fL RDW Coeff of Mani (11.5-14.5) % Plt Count (130-400) K/uL MPV (7.4-10.4) fL Immature Gran % (Auto) % Neut % (Auto) % Lymph % (Auto) % [place] % (Auto) % Eos % (Auto) % Baso % (Auto) % Neut # (Auto) (1.4-6.5) K/uL Lymph # (Auto) (1.2-3.4) K/uL [place] # (Auto) (0.11-0.59) K/uL Eos # (Auto) (0-0.5) K/uL Baso # (Auto) (0-0.2) K/uL Immature Gran # (Auto) (0.00-0.02) K/uL PT (9.0-12.0) Seconds INR (0.9-1.1) APTT (21.0-31.0) Seconds PTT Ratio POC pH 7.30 L (7.35-7.45) POC pCO2 108 H (35-46) mmHg POC pO2 103 H (80-95) mmHg POC HCO3 52 H (19-24) jus/L POC Total CO2 > 50 H* (24-31) mmol/L POC Base Excess 26.0 H (-9-1.8) jus/L POC ABG O2 Sat 96.0 H (90-95) % Sodium (136-145) mmol/L Potassium (3.5-5.1) mmol/L Chloride (98-107) mmol/L Carbon Dioxide (21-32) mmol/L Anion Gap (3-11) BUN (7-18) mg/dl Creatinine (0.6-1.4) mg/dl Est Cr Clr Drug Dosing ml/min Est GFR ( Amer) ml/min Est GFR (Non-Af Amer) ml/min BUN/Creatinine Ratio (10-20) Glucose (70-99) mg/dl Lactate (0.4-2.0) mmol/L Calcium (8.5-10.1) mg/dl Magnesium (1.8-2.4) mg/dl Total Bilirubin (0.2-1) mg/dl AST (15-37) U/L ALT (12-78) U/L Alkaline Phosphatase (45-117) U/L Troponin I (0-0.045) ng/ml Total Protein (6.4-8.2) gm/dl Albumin (3.4-5.0) gm/dl Globulin (2.5-4.0) gm/dl Albumin/Globulin Ratio (0.9-2) Procalcitonin < 0.05 (0-0.5) ng/ml COVID-19 Eval Order SARS-CoV-2 (PCR) (Negative) Administered Medications Clonazepam (Clonazepam 1 Mg Tab) 1 mg PO TID LINDA Stop: 04/24/21 20:59 Last Admin: 03/25/21 21:04 Dose: 1 mg Documented by: [id number] Enoxaparin Sodium (Enoxaparin Inj 40 Mg/0.4 Ml Syr) 40 mg SQ QAM LINDA Stop: 04/24/21 15:59 Last Admin: 03/25/21 16:52 Dose: 40 mg Documented by: [id number] Fluticasone/Vilanterol (Fluticasone/Vilanterol 200/25mcg 14 Puffs/Inhaler) 1 puffs INH DAILY LINDA Stop: 04/24/21 16:59 Last Admin: 03/25/21 17:44 Dose: 1 puffs Documented by: [id number] Methylprednisolone 40 mg/ (Syringe) 0.64 mls @ 1.5 mls/min IV BID LINDA Stop: 04/24/21 20:59 Last Admin: 03/25/21 21:06 Dose: 1.5 mls/min Documented by: [id number] Mirtazapine (Mirtazapine Soltab 15 Mg) 22.5 mg PO HS LINDA Stop: 04/24/21 20:59 Last Admin: 03/25/21 21:07 Dose: 22.5 mg Documented by: [id number] Olanzapine (Olanzapine 2.5 Mg Tab) 2.5 mg PO HS LINDA Stop: 04/24/21 21:49 Last Admin: 03/25/21 22:41 Dose: 2.5 mg Documented by: [id number] Sertraline HCl (Sertraline Hcl 100 Mg Tablet) 200 mg PO HS LINDA Stop: 04/24/21 20:59 Last Admin: 03/25/21 21:09 Dose: Not Given Documented by: [id number] Discontinued Medications Albuterol (Albut/Ipratrop 3mg/0.5mg Neb 3 Ml Vial) 3 ml NEB NOW STA Stop: 03/25/21 17:25 Last Admin: 03/25/21 18:22 Dose: 3 ml Documented by: [id number] Sodium Chloride (Nss) 500 mls @ 999 mls/hr IV .Q31M ONE Stop: 03/25/21 07:29 Last Infusion: 03/25/21 15:27 Dose: 0 mls/hr Documented by: [id number] Admin: 03/25/21 08:39 Dose: 999 mls/hr Documented by: [id number] Sodium Chloride (Nss) 500 mls @ 125 mls/hr IV .Q4H LINDA Stop: 04/24/21 06:59 Last Admin: 03/25/21 17:36 Dose: Not Given Documented by: [id number] Admin: 03/25/21 16:24 Dose: Not Given Documented by: [id number] Infusion: 03/25/21 15:26 Dose: 0 mls/hr Documented by: [id number] Admin: 03/25/21 08:39 Dose: 125 mls/hr Documented by: [id number] Sodium Chloride (Nss 1000ml) 1,000 mls @ 125 mls/hr IV .Q8H LINDA Stop: 03/26/21 16:59 Last Infusion: 03/25/21 22:06 Dose: 0 mls/hr Documented by: [id number] Admin: 03/25/21 16:57 Dose: 125 mls/hr Documented by: [id number] Azithromycin 500 mg/ Dextrose 255 mls @ 125 mls/hr IV ONE ONE Stop: 03/25/21 19:32 Last Infusion: 03/25/21 20:58 Dose: 0 mls/hr Documented by: [id number] Admin: 03/25/21 18:14 Dose: 125 mls/hr Documented by: [id number] Imaging Data Radiologist's Impression: Head CT 03/25/21 05:50 CT head/brain wo con Clinical Indication: MN ^altered ms. Technique: Contiguous axial CT images of the head were acquired from the base of the skull to the vertex without intravenous contrast administration. Images were viewed in brain, subdural and bone windows. Automated dose lowering techniques and/or adjustment according to patient size were utilized for this exam. Comparison: Comparison is made to CT head 09/17/2020 Findings: The ventricles, basal cisterns, and cerebral sulci are normal. There is no acute intracranial hemorrhage or evidence of acute territorial infarction. Neither mass effect, shift of the midline structures, nor abnormal extra-axial fluid collections are shown. Imaged portions of the paranasal sinuses and mastoid air cells are clear. The orbits appear normal. There are no acute fractures of the calvaria or scalp swelling. Impression: No acute intracranial hemorrhage, evidence of acute territorial infarction, or other acute intracranial disease process. ACT 112: Negative or not required by law. Electronically signed by: Get Echevarria M.D. 03/25/2021 7:27 AM Discharge Plan Visit Data Chief Complaint: Altered Mental Status Stated Complaint: ALTERED MENTAL STATUS ED Provider: Mojgan Zurita Discharge Problem: Acute hypercapnic respiratory failure, Altered mental status Patient Disposition: Admitted As Inpatient Discharge Instructions Interventions: ED Discharge Assessment Last Done: 03/25/21 14:57 Discharge Problem: Altered mental status Qualifiers: Altered mental status type: somnolence Qualified Code(s): R40.0 - Somnolence
[2021-03-25 06:24] LABS: Basophils # (auto) 0.01 K/uL (0-0.2); Basophils % (auto) 0.1 %; Eosinophils # (auto) 0.03 K/uL (0-0.5); Eosinophils % (auto) 0.4 %; Hematocrit (blood only) 43.6 % (42-52); Hemoglobin 13.2 g/dL (14.0-18.0); Lymphocytes # (auto) 0.76 K/uL (1.2-3.4); Lymphocytes % (auto) 9.6 %; Mean Corpuscular Hemoglobin 29.4 pg (25-34); Mean Corpuscular Hgb Conc 30.3 g/dL (32-36); Mean Corpuscular Volume 97.1 fL (80-100); Mean Platelet Volume 11.3 fL (7.4-10.4); Monocytes # (auto) 0.38 K/uL (0.11-0.59); Monocytes % (auto) 4.8 %; Neutrophils # (auto) 6.75 K/uL (1.4-6.5); Neutrophils % (auto) 85.1 %; Platelet Count 188 K/uL (130-400); RDW Coefficient of Variation 13.3 % (11.5-14.5); RDW Standard Deviation 47.3 fL (36.4-46.3); Red Blood Count 4.49 M/uL (4.7-6.1); White Blood Count 7.93 K/uL (4.8-10.8)
[2021-03-25 06:37] LABS: Partial Thromboplastin Ratio 0.9; Partial Thromboplastin Time 24.9 Seconds (21.0-31.0); Prothrombin Time 10.1 Seconds (9.0-12.0)
[2021-03-25 06:49] LABS: Alanine Aminotransferase 22 U/L (12-78); Albumin Level 3.4 gm/dl (3.4-5.0); Aspartate Aminotransferase 23 U/L (15-37); BUN Creatinine Ratio 32.6 (10-20); Blood Urea Nitrogen 30 mg/dl (7-18); Calcium 9.2 mg/dl (8.5-10.1); Carbon Dioxide 40 mmol/L (21-32); Chloride 89 mmol/L (98-107); Est GFR (African American) 104.3 ml/min; Glucose 107 mg/dl (70-99); Magnesium 2.4 mg/dl (1.8-2.4); Potassium 3.7 mmol/L (3.5-5.1); Sodium 134 mmol/L (136-145)
[2021-03-25 06:55] LABS: Albumin Globulin Ratio 0.8 (0.9-2); Alkaline Phosphatase 86 U/L (45-117); Bilirubin,Total 0.3 mg/dl (0.2-1); Globulin 4.1 gm/dl (2.5-4.0); Total Protein 7.5 gm/dl (6.4-8.2); Troponin I < 0.015 ng/ml (0-0.045)
[2021-03-25] MEDS ORDERED: SODIUM CHLORIDE 0.9% 500 ML IV ONE (06:59)
--- NOTE | 2021-03-25 07:28 | CT Scan Report ---
CT head/brain wo con Clinical Indication: MN ^altered ms. Technique: Contiguous axial CT images of the head were acquired from the base of the skull to the blaine sunil without intravenous contrast administration. Images were viewed in brain, subdural and bone windo ws. Automated dose lowering techniques and/or adjustment according to patient size were utilized for this exam. Comparison: Comparison is made to CT head 09/17/2020 Findings: The ventricles, basal cisterns, and cerebral sulci are normal. There is no acute intracranial hemorrh age or evidence of acute territorial infarction. Neither mass effect, shift of the midline structures , nor abnormal extra-axial fluid collections are shown. Imaged portions of the paranasal sinuses and mastoid air cells are clear. The orbits appear normal. There are no acute fractures of the calvaria or scalp swelling. Impression: No acute intracranial hemorrhage, evidence of acute territorial infarction, or other acute intracrani al disease process. ACT 112: Negative or not required by law. Electronically signed by: Get Echevarria M.D. 03/25/2021 7:27 AM
[2021-03-25 08:09] LABS: iSTAT Arterial Blood Gas HCO3 52 meg/L (19-24); iSTAT Arterial Blood Gas pCO2 108 mmHg (35-46); iSTAT Arterial Blood Gas pO2 103 mmHg (80-95); iSTAT Carbon Dioxide > 50 mmol/L (24-31)
--- NOTE | 2021-03-25 08:31 | XRay Report ---
XR chest 1V portable HISTORY: SEPSIS COMPARISON: Chest 02/22/2021. FINDINGS: Cervical spinal fusion hardware is again noted. No pneumothorax. No pleural effusions. Emph ysema. The heart is normal in size. No evidence for pulmonary edema. Old, healed right rib fractures. Mild interstitial thickening seen within the right lung which appears to have progressed in the inte rval. IMPRESSION: Mild interstitial thickening within the right lung which has progressed the interval. This could repr esent developing congestive change or a low-grade interstitial pneumonitis. ACT 112: Negative or not required by law. Electronically signed by: Gurinder White M.D. 03/25/2021 8:29 AM
[2021-03-25] MEDS: SODIUM CHLORIDE 0.9% 500 ML IV SCH ×3 (08:39→17:36)
--- NOTE | 2021-03-25 08:53 | History & Physical Report ---
Date of Service March 25, 2021 Assessment & Plan (1) Acute on chronic respiratory failure with hypercapnia: Plan: - Admit to PCU -Cont bipap, noted that the patient would not want to be intubated- he is a DNR/DNI -Likely secondary to patient being off oxygen overnight causing hypercapnia -CT head is normal -ABG reviewed, pH 7.25, PCO2 = 108, recheck in 1 hour. -CXR reviewed : Mild interstitial thickening within the right lung which has progressed the interval. This could represent developing congestive change or a low-grade interstitial pneumonitis. - No leukocytosis, afebrile, so no abx at this time. Will check procal. -Pulm consulted -Patient vaccinated for Covid-19, negative here on admission -Patient takes Zanaflex and Klonopin at home, last took his medications last evening per , will hold these sedating medications -Medication change recently includes addition of Zyprexa 2.5 mg on 03/23, Remeron 45 mg was reduced in half at that time (2) Acute exacerbation of chronic obstructive pulmonary disease (COPD): Plan: - Cont respiratory support as above (3) Tobacco use disorder: Plan: - Patient continues to smoke up to half pack a day, encourage cessation -Patient is not using Flovent at home, as he cannot afford it, patient is on disability -Continue Anoro and Ventolin once awake (4) Hyponatremia: Plan: - Na slightly low at 134, giving NSS at 125 ml/hr, follow bmp to ensure improvement (5) Bipolar disorder: Plan: -History of such, continue Zyprexa, sertraline, Remeron at bedtime (6) Anxiety: Plan: -Holding clonazepam for now DVT ppx: - teds, scds CODE: DNR/DNI Dispo: From home, likely to remain in the hospital x 1-2 days History of Present Illness Chief Complaint: AMS Primary Care Provider: Chris Diaz DO This is a 61 yo M with PMHx chronic respiratory failure, COPD on 4 L nasal cannula, tobacco use disorder, anxiety, depression, prior h/o drug use presented to ER for respiratory distress. He was found down at home, not wearing his supplemental O2, on the ground. He has previously been admitted for acute hypercapnic respiratory failure. Today he is found to have pH of 7.25 and pCO2 of 100. In the ER the patient was placed on Bipap. It is unknown for how long he was on the floor for but does not c/o any specific pain or injury. Discussed with the pts over the phone as history is not obtainable from the patient due to mental status and being on bipap. Overnight at 4:00am, pt was found in the dining room, leaning up against the radiator. He did not have his o2 on at that time. He typically sleeps until 10-midnight, and then goes to make a cup of tea, and falls asleep again on the couch. Her son, who was there found him at 4am when getting ready to go to work. At 430 called EMS after no improvement after putting his O2 back on, he was confused and talking nonsensically. Medication changes include starting zyprexa 2.5 mg 2 days ago, and has been continued remeron but that was cut in half since starting zyprexa. He did take all his medications yesterday. He continues to smoke cigarettes - up to half pack per day, so has not been using the flovent. He does take clonazepam and tizanidine and took them last evening as scheduled. Allergies Allergy/AdvReac Type Severity Reaction Status Date / Time No Known Allergies Allergy Verified 09/17/20 11:44 Home Medications Medication Instructions Recorded Confirmed Type ipratropium 0.5 mg-albuterol 3 mg 3 ml INHALATION Q4H PRN 03/20/19 03/25/21 History (2.5 mg base)/3 mL nebulization soln tizanidine 4 mg tablet (Zanaflex) 2 mg PO Q6H PRN 03/20/19 03/25/21 History albuterol sulfate 90 mcg/actuation 2 puff INHALATION Q4H PRN 04/05/20 03/25/21 History aerosol inhaler (Ventolin HFA) aspirin 81 mg tablet,delayed 81 mg PO DAILY 04/05/20 03/25/21 History release (Aspirin Low Dose) umeclidinium 62.5 mcg-vilanterol 1 inh INHALATION DAILY #60 ea 05/12/20 03/25/21 Rx 25 mcg/actuation powdr for inhalation (Anoro Ellipta) clonazepam 1 mg tablet 1 mg PO TID 08/17/20 03/25/21 History mirtazapine 45 mg tablet 22.5 mg PO HS 08/17/20 03/25/21 History sertraline 100 mg tablet (Zoloft) 200 mg PO HS 08/17/20 03/25/21 History olanzapine 2.5 mg tablet 2.5 mg PO HS 03/25/21 03/25/21 History Past Med/Surg History Medical History (Updated 03/25/21 @ 16:51 by Lazaro Garcia MD) Anxiety Bipolar disorder Chronic pain Chronic respiratory failure COPD (chronic obstructive pulmonary disease) End stage COPD H/O: CVA (cerebrovascular accident) Tobacco use disorder Surgical History History of cervical spinal surgery History of hip surgery Family History Other Heart disease Social History Smoking Status: Current every day smoker Tobacco Type: Cigarettes packs per day: 1; Second Hand Exposure: No (UNKNOWN); Do You Dip or Chew Tobacco: No; Hx Alcohol Use: No Hx Substance Use: Yes Substance Use Type Other:: MEHT IN PER OLD CHART Preferred Language: New Zealander Communication Ability: Effective 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 Head: Normocephalic, atraumatic ENT: PERRL, EOMI, no pharyngeal cavity not examined as he is on bipap Chest: Diminished breath sounds throughout, on bipap, no adventitious breath sounds Cardiac: Sinus bradycardic, no murmur, no JVD, normal peripheral pulses, good capillary refill Abdominal: NABS x 4 quadrants, soft, nondistended, nontender to palpation, no rebound or guarding Extremities: Normal inspection, no peripheral edema or erythema, calfs nontender to palpation Psych: hx anxiety and depression, asleep. Neuro: unable to determine orientation, no gross motor deficits Results & Data Results & Data ([facility]) Vital Signs (Past 12 Hours) Vital Signs Temp Pulse Pulse Resp BP BP Pulse Ox 03/25/21 08:32 62 14 107/62 99 03/25/21 08:25 65 17 97 03/25/21 06:33 95 03/25/21 06:31 63 17 95 03/25/21 06:30 63 21 126/76 96 03/25/21 06:18 36.5 C 57 L 97 03/25/21 06:10 58 L 21 100 03/25/21 06:05 57 L 21 100 03/25/21 06:00 57 L 19 100 03/25/21 05:55 70 16 100 03/25/21 05:45 56 L 19 99 Laboratory Results Abnormal Labs 03/25/21 03/25/21 03/25/21 06:10 06:10 07:57 RBC 4.49 L Hgb 13.2 L MCHC 30.3 L RDW Std Deviation 47.3 H MPV 11.3 H Neut # (Auto) 6.75 H Lymph # (Auto) 0.76 L POC pH 7.30 L POC pCO2 108 H POC pO2 103 H POC HCO3 52 H POC Total CO2 > 50 H* POC Base Excess 26.0 H POC ABG O2 Sat 96.0 H Sodium 134 L Chloride 89 L Carbon Dioxide 40 H BUN 30 H BUN/Creatinine Ratio 32.6 H Glucose 107 H Globulin 4.1 H Albumin/Globulin Ratio 0.8 L Diagnostic Findings Chest X-Ray 03/25/21 05:49 XR chest 1V portable HISTORY: SEPSIS COMPARISON: Chest 02/22/2021. FINDINGS: Cervical spinal fusion hardware is again noted. No pneumothorax. No pleural effusions. Emphysema. The heart is normal in size. No evidence for pulmonary edema. Old, healed right rib fractures. Mild interstitial thickening seen within the right lung which appears to have progressed in the interval. IMPRESSION: Mild interstitial thickening within the right lung which has progressed the interval. This could represent developing congestive change or a low-grade interstitial pneumonitis. ACT 112: Negative or not required by law. Electronically signed by: Gurinder White M.D. 03/25/2021 8:[address] 03/25/21 05:50 CT head/brain wo con Clinical Indication: MN ^altered ms. Technique: Contiguous axial CT images of the head were acquired from the base of the skull to the vertex without intravenous contrast administration. Images were viewed in brain, subdural and bone windows. Automated dose lowering techniques and/or adjustment according to patient size were utilized for this exam. Comparison: Comparison is made to CT head 09/17/2020 Findings: The ventricles, basal cisterns, and cerebral sulci are normal. There is no acute intracranial hemorrhage or evidence of acute territorial infarction. Neither mass effect, shift of the midline structures, nor abnormal extra-axial fluid collections are shown. Imaged portions of the paranasal sinuses and mastoid air cells are clear. The orbits appear normal. There are no acute fractures of the calvaria or scalp swelling. Impression: No acute intracranial hemorrhage, evidence of acute territorial infarction, or other acute intracranial disease process. ACT 112: Negative or not required by law. Electronically signed by: Get Echevarria M.D. 03/25/2021 7:27 AM ECG Additional Comments: 25-MAR-2021 05:55:09 [facility]-EDSTAT ROUTINE RETRIEVAL Sinus bradycardia Otherwise normal ECG When compared with ECG of 21-FEB-2021 11:30, QT has shortened 25mm/s 10mm/mV 150Hz 9.0.9 12SL 241 NEGAR: 16 Referred by: ED Unconfirmed Vent. rate 58 BPM MT interval 124 ms QRS duration 78 ms QT/QTc 362/355 ms Code Status & VTE Plan Code Status DNR/DNI - discussed with pt over the phone Supervising Physician Co-Signing Physician Notes 61-year-old male with PMH of end-stage COPD on 4 L nasal cannula oxygen, chronic respiratory failure, tobacco abuse, anxiety, depression, history of drug abuse presented to our ED for respiratory distress. He was found at home on the ground not wearing his supplemental oxygen. In the ED, he had PCO2 of greater than 100. BiPAP, pulmonology consult, oral meds when able. Repeat ABG as needed. Upon examination: GENERAL: Alert and oriented x3. NAD, on RA. Cachectic looking. HEENT: No pallor, no icterus. Pupils equal, round and reactive to light. Oral mucosa moist. NECK: No JVD, no neck masses. HEART: S1 and S2 heard. Regular rate and rhythm. No murmur, no gallop. RESPIRATORY SYSTEM: Normal AP diameter. No accessory muscle use. No wheezing, no crackles. ABDOMEN: Soft, bowel sounds present, nontender, no distention. CENTRAL NERVOUS SYSTEM: Alert and oriented x3. No facial droop. Speech is clear. Obeys simple commands. Moves extremities. EXTREMITIES: No edema, no erythema seen. I have seen and examined the patient and have discussed the case with the provider above. I agree with the assessment and plan as stated.
[2021-03-25 12:58] LABS: Appearance Urine Clear (Clear); Bilirubin Urine Negative (Negative); Blood Urine Negative (Negative); Color Urine Yellow; Glucose Urine UA Negative (Negative); Ketones Urine Negative (Negative); Leukocyte Esterase Urine Negative (Negative); Nitrite Urine Negative (Negative); Protein Urine Negative (Negative); Specific Gravity Urine 1.016 (1.000-1.030); Urobilinogen Urine Negative (Negative); pH Urine 6.5 (4.5-7.5)
[2021-03-25] MEDS ORDERED: ACETAMINOPHEN 325 MG TAB PO PRN (15:23)
[2021-03-25] MEDS ORDERED: ONDANSETRON INJ 2 MG/ML 2 ML VIAL IV PRN (15:23)
[2021-03-25] MEDS: ENOXAPARIN INJ 40 MG/0.4 ML SYR SQ SCH (16:52)
--- NOTE | 2021-03-25 16:53 | Pulmonary Consultation ---
Date of Consultation March 25, 2021 Assessment & Plan (1) Acute on chronic respiratory failure with hypercapnia: (2) End stage COPD: (3) Bipolar disorder: 61-year-old male with a past medical history of COPD, chronic hypoxemic respiratory failure, continued tobacco abuse and bipolar disorder who presents to the hospital for an acute COPD exacerbation. He has very frequent readmissions and essentially has end-stage COPD. His condition is complicated by the fact that he has severe underlying psychiatric issues which require sedating medications. I placed an order for Solu-Medrol [address] Order for Breo Ellipta and Incruse Ellipta placed as well. Will start azithromycin 500 mg starting today and then 250 for 4 days. Can consider starting him on long-term azithromycin for immunomodulatory effects as an outpatient. Can consider Daliresp as well to help reduce the frequency of exacerbations. BiPAP compliance encouraged. DuoNebs ordered as needed every 4 hours. Recommend discharging him home on Trelegy to simplify his inhaler regimen. He requires pulmonary follow-up as an outpatient. Please wean oxygen to maintain saturations of 88 to 92%. Palliative care consultation ordered. He essentially has end-stage COPD and his overall prognosis poor. Thank you for the consultation. Discussed with RN at bedside. History of Present Illness Reason for Consultation: Acute COPD exacerbation Attending Physician: Zulma Ch MD History of Present Illness 61-year-old male with a past medical history of frequent readmissions for COPD exacerbations, chronic hypoxemic respiratory failure, history of CVA, bipolar disorder and anxiety presenting to the hospital due to increasing shortness of breath. He was just discharged on 02/22/2021 where he actually left AGAINST MEDICAL ADVICE. He was intubated for hypercapnic respiratory failure at that time. He left AGAINST MEDICAL ADVICE from the ICU. No prior PFTs are available for review. Chest x-ray completed this admission personally reviewed by me demonstrates severe emphysema with hyperinflation of the lung sherman. Increased interstitial markings noted particularly greater on the right side. Costophrenic angles are mildly blunted. I reviewed his last CT chest which was completed on 05/09/2020 which demonstrated severe diffuse centrilobular emphysema with bibasilar atelectasis. Procalcitonin this admission is less than 0.05. No leukocytosis is seen. Serum bicarbonate is elevated to 40. ABG this admission is consistent with acute on chronic hypercapnic respiratory failure pH 7.30, PCO2 108 and PAO2 103. He was found unconscious at home. Oxygen was off of him at that time. He apparently was confused last night as well. He continues to smoke half a pack per day. He is on a number of sedating medications including clonazepam, tizanidine, and mirtazapine. Patient does not recall why he is in the hospital. He feels that he is chronically short of breath. His activity level is very low. He is noncompliant with BiPAP due to anxiety. He notes that his father has dementia which is also causing increased anxiety. He is asking for his Klonopin. He is frustrated with his overall health. He denies any worsening cough. No recent fevers or chills. Allergies Allergy/AdvReac Type Severity Reaction Status Date / Time No Known Allergies Allergy Verified 09/17/20 11:44 Home Medications Medication Instructions Recorded Confirmed Type ipratropium 0.5 mg-albuterol 3 mg 3 ml INHALATION Q4H PRN 03/20/19 03/25/21 History (2.5 mg base)/3 mL nebulization soln tizanidine 4 mg tablet (Zanaflex) 2 mg PO Q6H PRN 03/20/19 03/25/21 History albuterol sulfate 90 mcg/actuation 2 puff INHALATION Q4H PRN 04/05/20 03/25/21 History aerosol inhaler (Ventolin HFA) aspirin 81 mg tablet,delayed 81 mg PO DAILY 04/05/20 03/25/21 History release (Aspirin Low Dose) umeclidinium 62.5 mcg-vilanterol 1 inh INHALATION DAILY #60 ea 05/12/20 03/25/21 Rx 25 mcg/actuation powdr for inhalation (Anoro Ellipta) clonazepam 1 mg tablet 1 mg PO TID 08/17/20 03/25/21 History mirtazapine 45 mg tablet 22.5 mg PO HS 08/17/20 03/25/21 History sertraline 100 mg tablet (Zoloft) 200 mg PO HS 08/17/20 03/25/21 History olanzapine 2.5 mg tablet 2.5 mg PO HS 03/25/21 03/25/21 History Patient History Medical History (Updated 03/25/21 @ 16:51 by Lazaro Garcia MD) Anxiety Bipolar disorder Chronic pain Chronic respiratory failure COPD (chronic obstructive pulmonary disease) End stage COPD H/O: CVA (cerebrovascular accident) Tobacco use disorder Surgical History History of cervical spinal surgery History of hip surgery Family History Other Heart disease Social History Smoking Status: Current every day smoker Tobacco Type: Cigarettes packs per day: 1; Second Hand Exposure: No (UNKNOWN); Do You Dip or Chew Tobacco: No; Hx Alcohol Use: No Hx Substance Use: Yes Substance Use Type Other:: MEHT IN PER OLD CHART Preferred Language: Telugu Communication Ability: Effective Bone Density Technician Required: No Beliefs That Will Affect Care: None Current Living Situation: Spouse and Family Current Living Situation Comment: , Daughter, son in law, 2 grand children Other Information That Helps Us Care for You: No Feels Safe at Home: Yes Safety Concerns: Feels Safe At This Time Assistive Devices: CPAP, Nebulizer and Oxygen - Continuous Physical Exam Physical Exam: Constitutional: Frail and thin appearing male in no apparent distress. Nasal cannula in place. Eyes: Pupils are equal round and reactive to light. Conjunctivae are normal. Anicteric sclera. Ears nose, mouth and throat: Nasal cannula in place. No obvious deformities. Neck: Trachea is midline. Visual inspection is normal. Respiratory: Prolonged phase of exhalation. Moderate expiratory wheezes noted bilaterally. Cardiovascular: Regular rate and rhythm. No murmurs. No edema. Gastrointestinal: Normal bowel sounds, soft, nontender and nondistended. No hepatosplenomegaly noted. Musculoskeletal: No cyanosis. Patient is able to move all extremities. Strength is 5 out of 5 in the upper and lower extremities. Skin: No rashes, warm dry and intact. Tattoos throughout. Neurologic: No obvious focal neurological deficits seen. Psychiatric: Alert and oriented x3 with a euthymic affect. Results & Data Results & Data ([facility]) Vital Signs (Past 12 Hours) Vital Signs Temp Pulse Pulse Resp BP BP Pulse Ox 03/25/21 16:00 69 13 100 03/25/21 15:30 13 99 03/25/21 15:23 98.8 F 68 16 128/75 100 03/25/21 14:57 67 18 117/76 98 03/25/21 09:57 16 127/67 97 03/25/21 08:32 62 14 107/62 99 03/25/21 08:25 65 17 97 03/25/21 06:33 95 03/25/21 06:31 63 17 95 03/25/21 06:30 63 21 126/76 96 03/25/21 06:18 97.7 F 57 L 97 03/25/21 06:10 58 L 21 100 03/25/21 06:05 57 L 21 100 03/25/21 06:00 57 L 19 100 03/25/21 05:55 70 16 100 03/25/21 05:45 56 L 19 99 vital signs, labs and imaging personally reviewed PG Care Time/CCT Total # of Minutes Spent Total Time Spent with Patient: Total time spent is greater than 50% in coordination of care (as documented) at patient's floor/unit and/or counseling patient: Coding Level of Care Code 21900 Inpt Consult Level 5 Diagnoses Acute on chronic respiratory failure with hypercapnia J96.22 End stage COPD J44.9 Bipolar disorder F31.9
[2021-03-25] MEDS ORDERED: SODIUM CHLORIDE 0.9% 1000ML 1,000 ML IV SCH (17:00)
[2021-03-25] MEDS ORDERED: ALBUT/IPRATROP 3MG/0.5MG NEB 3 ML VIAL NEB PRN (17:02)
[2021-03-25] MEDS ORDERED: ALBUT/IPRATROP 3MG/0.5MG NEB 3 ML VIAL NEB STA (17:24)
[2021-03-25] MEDS ORDERED: AZITHROMYCIN 500 MG in DEXTROSE 5% 250 ML IV ONE (17:30)
[2021-03-25] MEDS: FLUTICASONE/VILANTEROL 200/25MCG 14 PUFFS/INHALER INH SCH (17:44)
[2021-03-25] MEDS ORDERED: tiZANidine HCL 4 MG TABLET PO PRN (18:18)
[2021-03-25] MEDS ORDERED: SERTRALINE HCL 100 MG TABLET PO SCH (21:00)
[2021-03-25] MEDS ORDERED: MIRTAZAPINE SOLTAB 15 MG PO SCH (21:00)
[2021-03-25] MEDS: clonazePAM 1 MG TAB PO SCH (21:04)
[2021-03-25] MEDS: methylPREDNISolone 40 MG in SYRINGE 0 ML IV SCH (21:06)
[2021-03-25] MEDS ORDERED: OLANZAPINE 2.5 MG TAB PO SCH (21:50)
[2021-03-26 06:33] LABS: Hematocrit (blood only) 37.1 % (42-52); Hemoglobin 11.2 g/dL (14.0-18.0); Mean Corpuscular Hemoglobin 28.9 pg (25-34); Mean Corpuscular Hgb Conc 30.2 g/dL (32-36); Mean Corpuscular Volume 95.9 fL (80-100); Platelet Count 167 K/uL (130-400); RDW Coefficient of Variation 13.6 % (11.5-14.5); RDW Standard Deviation 47.5 fL (36.4-46.3); Red Blood Count 3.87 M/uL (4.7-6.1); White Blood Count 5.23 K/uL (4.8-10.8)
[2021-03-26 07:19] LABS: Albumin Globulin Ratio 0.8 (0.9-2); Albumin Level 2.8 gm/dl (3.4-5.0); BUN Creatinine Ratio 27.3 (10-20); Bilirubin,Total 0.4 mg/dl (0.2-1); Calcium 8.9 mg/dl (8.5-10.1); Est GFR (African American) 111.5 ml/min; Est GFR (Non-African American) 96.2 ml/min; Globulin 3.4 gm/dl (2.5-4.0); Magnesium 2.1 mg/dl (1.8-2.4); Potassium 3.9 mmol/L (3.5-5.1); Total Protein 6.2 gm/dl (6.4-8.2)
[2021-03-26] MEDS: methylPREDNISolone 40 MG in SYRINGE 0 ML IV SCH (07:31)
[2021-03-26] MEDS: ENOXAPARIN INJ 40 MG/0.4 ML SYR SQ SCH (07:34)
[2021-03-26] MEDS: FLUTICASONE/VILANTEROL 200/25MCG 14 PUFFS/INHALER INH SCH (07:35)
[2021-03-26] MEDS: clonazePAM 1 MG TAB PO SCH (07:47)
[2021-03-26] MEDS ORDERED: ASPIRIN 81 MG ECTAB PO SCH (09:00)
[2021-03-26] MEDS ORDERED: UMECLIDINIUM BROMIDE 62.5MCG/BLISTER 7 PUFFS/INHALER INH SCH (09:00)
[2021-03-26] MEDS ORDERED: AZITHROMYCIN 250 MG in DEXTROSE 5% 250 ML IV SCH (09:00)
--- NOTE | 2021-03-26 10:27 | Hospitalist Progress Note ---
Date of Service March 26, 2021 Assessment & Plan Admission and Anticipated Discharge Date Admission Date: March 25, 2021 Subjective Patient was sitting up in bed, on 4 L nasal cannula oxygen, NAD, no acute events overnight. Patient denies chest pain/headache/dizziness/other review of symptoms. Possible discharge after palliative care sees him. Looks like at his baseline, should be able to go home. Physical Exam Physical Exam: GENERAL: Alert and oriented x3. NAD, on 4L. Cachectic looking. HEENT: No pallor, no icterus. Pupils equal, round and reactive to light. Oral mucosa moist. NECK: No JVD, no neck masses. HEART: S1 and S2 heard. Regular rate and rhythm. No murmur, no gallop. RESPIRATORY SYSTEM: Normal AP diameter. No accessory muscle use. No wheezing, no crackles. Decreased breath sounds. ABDOMEN: Soft, bowel sounds present, nontender, no distention. CENTRAL NERVOUS SYSTEM: Alert and oriented x3. No facial droop. Speech is clear. Obeys simple commands. Moves extremities. EXTREMITIES: No edema, no erythema seen. Results & Data Results & Data ([facility]) Vital Signs (Past 12 Hours) Vital Signs Temp Pulse Pulse Resp BP BP Pulse Ox 03/26/21 09:12 36.9 C 68 24 112/70 99 03/26/21 08:00 66 03/26/21 04:00 72 18 112/74 99 03/26/21 03:29 66 18 95 03/25/21 23:34 66 18 95 03/25/21 23:00 67 03/25/21 22:32 36.8 C 69 16 131/71 99
--- NOTE | 2021-03-26 13:09 | Palliative Care Consultation ---
Date of Consultation March 26, 2021 Assessment & Plan (1) Palliative care encounter: I talked with Mr. Aldrich about his illness and how he is coping with it. He tells me repeatedly that he feels better than he has in a long time thanks to the "machine", meaning bipap. We discussed how he was managing with bipap at home and he admits that he wasn't always using it but thinks that he will now. We talked about his frequent hospitalizations. He tells me that he's ok with coming back to the hospital whenever he needs to get fixed up. He tells me that he wants to keep going as long as he can to be with his family. I asked him if there were any limitations to what he would want for his care and he stated that he would not want to be on the ventilator or have CPR. This is consistent with what he has told me on a previous admission. (2) Acute hypercapnic respiratory failure: (3) End stage COPD: History of Present Illness Reason for Consultation: goals of care Requesting Physician: Dr. Garcia Attending Physician: Zulma Ch MD History of Present Illness 61 yo gentleman with chronic respiratory failure related to advance COPD. He is on 4L O2 at his baseline and uses bipap at night, though compliance has been an issue. He was found down at home at 4am on the day of admission and was admitted with acute on chronic hypercapnic respiratory failure. His PCO2 on admission was 100. He has had significant improvement with bipap in the hospital and feels that he is back to his baseline "better than I've felt in a long time". He also has ongoing problems with anxiety and is on multiple medications with potential sedating effects to manage his anxiety. He has been hospitalized multiple times, most recently in February at which time he left [facility]. He is followed by Cynthia Montoya with palliative care at [facility]. He cannot recall when he last saw her but thinks he has an appointment coming up. Per [facility], he was discharged from palliative care back to the care of his PCP. Allergies Allergy/AdvReac Type Severity Reaction Status Date / Time No Known Allergies Allergy Verified 09/17/20 11:44 Home Medications Medication Instructions Recorded Confirmed Type ipratropium 0.5 mg-albuterol 3 mg 3 ml INHALATION Q4H PRN 03/20/19 03/25/21 History (2.5 mg base)/3 mL nebulization soln tizanidine 4 mg tablet (Zanaflex) 2 mg PO Q6H PRN 03/20/19 03/25/21 History albuterol sulfate 90 mcg/actuation 2 puff INHALATION Q4H PRN 04/05/20 03/25/21 History aerosol inhaler (Ventolin HFA) aspirin 81 mg tablet,delayed 81 mg PO DAILY 04/05/20 03/25/21 History release (Aspirin Low Dose) umeclidinium 62.5 mcg-vilanterol 1 inh INHALATION DAILY #60 ea 05/12/20 03/25/21 Rx 25 mcg/actuation powdr for inhalation (Anoro Ellipta) clonazepam 1 mg tablet 1 mg PO TID 08/17/20 03/25/21 History mirtazapine 45 mg tablet 22.5 mg PO HS 08/17/20 03/25/21 History sertraline 100 mg tablet (Zoloft) 200 mg PO HS 08/17/20 03/25/21 History olanzapine 2.5 mg tablet 2.5 mg PO HS 03/25/21 03/25/21 History Patient History Medical History Anxiety Bipolar disorder Chronic pain Chronic respiratory failure COPD (chronic obstructive pulmonary disease) End stage COPD H/O: CVA (cerebrovascular accident) Tobacco use disorder Surgical History History of cervical spinal surgery History of hip surgery Family History Other Heart disease Social History Smoking Status: Current every day smoker Tobacco Type: Cigarettes packs per day: 1; Second Hand Exposure: No (UNKNOWN); Do You Dip or Chew Tobacco: No; Hx Alcohol Use: No Hx Substance Use: Yes Substance Use Type Other:: MEHT IN PER OLD CHART Preferred Language: Palestinian Communication Ability: Effective 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 Beliefs That Will Affect Care: None Current Living Situation: Spouse and Family Current Living Situation Comment: , Daughter, son in law, 2 grand children Other Information That Helps Us Care for You: No Feels Safe at Home: Yes Safety Concerns: Feels Safe At This Time Assistive Devices: None Review of Systems Review of Systems: [place] Symptom Assessment Scale Pain 0/3 Dyspnea 0/3 Anxiety 0/3 Fatigue 0/3 Drowsiness 0/3 Palliative Performance Score 60% Physical Exam Constitutional: + thin and + frail appearing Respiratory: normal respiratory effort; no labored breathing Gastrointestinal (Abdomen): Inspection/Auscultation: abdomen not distended Musculoskeletal: Extremities: + muscle atrophy Neurologic: awake; not confused Results & Data ([facility]) Vital Signs (Past 12 Hours) Vital Signs Temp Pulse Pulse Resp BP BP Pulse Ox 03/26/21 11:28 98.2 F 61 17 121/71 96 03/26/21 09:12 98.4 F 68 24 112/70 99 03/26/21 08:00 66 03/26/21 04:00 72 18 112/74 99 03/26/21 03:29 66 18 95 PG Care Time/CCT Total # of Minutes Spent Total Time Spent: 55 Total Time Spent with Patient: Total time spent is greater than 50% in coordination of care (as documented) at patient's floor/unit and/or counseling patient: goals of care, code status Coding Level of Care Code 17896 Initial Inpt Care Lvl 2 Diagnoses Palliative care encounter Z51.5 Acute hypercapnic respiratory failure J96.02 End stage COPD J44.9
--- NOTE | 2021-03-26 16:33 | Discharge Summary ---
Date of Service March 26, 2021 Admission HPI Per Admitting Provider This is a 61 yo M with PMHx chronic respiratory failure, COPD on 4 L nasal cannula, tobacco use disorder, anxiety, depression, prior h/o drug use presented to ER for respiratory distress. He was found down at home, not wearing his supplemental O2, on the ground. He has previously been admitted for acute hypercapnic respiratory failure. Today he is found to have pH of 7.25 and pCO2 of 100. In the ER the patient was placed on Bipap. It is unknown for how long he was on the floor for but does not c/o any specific pain or injury. Discussed with the pts over the phone as history is not obtainable from the patient due to mental status and being on bipap. Overnight at 4:00am, pt was found in the dining room, leaning up against the radiator. He did not have his o2 on at that time. He typically sleeps until 10-midnight, and then goes to make a cup of tea, and falls asleep again on the couch. Her son, who was there found him at 4am when getting ready to go to work. At 430 called EMS after no improvement after putting his O2 back on, he was confused and talking nonsensically. Medication changes include starting zyprexa 2.5 mg 2 days ago, and has been continued remeron but that was cut in half since starting zyprexa. He did take all his medications yesterday. He continues to smoke cigarettes - up to half pack per day, so has not been using the flovent. He does take clonazepam and tizanidine and took them last evening as scheduled. Admission Exam Per Admitting Provider GENERAL: Alert and oriented x3. NAD, on RA. Cachectic looking. HEENT: No pallor, no icterus. Pupils equal, round and reactive to light. Oral mucosa moist. NECK: No JVD, no neck masses. HEART: S1 and S2 heard. Regular rate and rhythm. No murmur, no gallop. RESPIRATORY SYSTEM: Normal AP diameter. No accessory muscle use. No wheezing, no crackles. ABDOMEN: Soft, bowel sounds present, nontender, no distention. CENTRAL NERVOUS SYSTEM: Alert and oriented x3. No facial droop. Speech is clear. Obeys simple commands. Moves extremities. EXTREMITIES: No edema, no erythema seen. Principal Diagnosis Acute on chronic hypercapnic respiratory failure Discharge Exam GENERAL: Alert and oriented x3. NAD, on RA. Cachectic looking. HEENT: No pallor, no icterus. Pupils equal, round and reactive to light. Oral mucosa moist. NECK: No JVD, no neck masses. HEART: S1 and S2 heard. Regular rate and rhythm. No murmur, no gallop. RESPIRATORY SYSTEM: Normal AP diameter. No accessory muscle use. No wheezing, no crackles. Decreased breath sounds. ABDOMEN: Soft, bowel sounds present, nontender, no distention. CENTRAL NERVOUS SYSTEM: Alert and oriented x3. No facial droop. Speech is clear. Obeys simple commands. Moves extremities. EXTREMITIES: No edema, no erythema seen. Discharge Data Allergies Allergy/AdvReac Type Severity Reaction Status Date / Time No Known Allergies Allergy Verified 09/17/20 11:44 Consultations 03/25/21 08:31 ED Decision to Admit Stat 03/25/21 09:35 Consult Pulmonology Routine 03/25/21 17:00 Consult Palliative Care Routine Ordered Studies 03/25/21 05:50 CT head/brain wo con Stat Hospital Course (1) Acute on chronic respiratory failure with hypercapnia: 61-year-old male with PMH of end-stage COPD on 4 L nasal cannula oxygen, chronic respiratory failure, tobacco abuse, anxiety, depression, history of drug abuse presented to our ED 03/25 for respiratory distress. He was found at home on the ground not wearing his supplemental oxygen. In the ED, he had PCO2 of greater than 100. Pulmonology was consulted and made recommendation of Trelegy at discharge to simplify his inhalation medications. After being put on BiPAP, patient improved to his baseline 4 L nasal cannula oxygen. Patient encouraged to wear BiPAP and use his home oxygen as advised. Today morning, patient was alert and oriented x3, no respiratory distress, no new events overnight, feeling perfectly at baseline per patient, and wanted to go home. Patient is to follow-up with his primary care physician in lung doctor once discharged. Patient is to maintain compliance with supplemental O2 using BiPAP at home. Patient is discharged with prednisone and azithromycin for few days and Trelegy in place of his other inhalation medication. He continues to use his as needed albuterol or DuoNeb in case of shortness of breath. Patient counseled to quit smoking. Following instructions were communicated to the patient at the time of discharge: Take your medications as prescribed. Follow-up with your primary care physician within a week time. Use your BiPAP and home oxygen as advised. Follow-up with your lung doctor as an outpatient in 1 to 2 weeks time. Quitting smoking will help with your disease process as discussed at the bedside. Total Time Total Time Spent Total Time Spent (In Minutes): 45 Discharge Plan Discharge Items Patient Disposition: Home - Self-Care Reason For Visit: ACUTE HYPERCAPNIC RESPIRATORY FAILURE Discharge Diagnosis: Acute on chronic hypercapnic respiratory failure Activity: Resume your previous activity Non-emergency contact: Primary Care Provider Call non-emergency contact if: you have any medication questions and your symptoms worsen Follow-up/Referrals: Chris Diaz DO [Primary Care Provider] - (Date & Time 04/02/2021 11:00 AM Provider SOPHIA Dorado Department Family Practice [facility] ) Froilan Ayala MD [Outside Practitioners] - (Date & Time 04/28/2021 1:00 PM Provider Froilan Ayala MD Department Pulmonary Medicine, [facility] ) Diet: Regular Addtl Attending Provider Instructions: Take your medications as prescribed. Follow-up with your primary care physician within a week time. Use your BiPAP and home oxygen as advised. Follow-up with your lung doctor as an outpatient in 1 to 2 weeks time. Quitting smoking will help with your disease process as discussed at the bedside. Pending Studies at Discharge: Yes (Admitting blood culture final results.) Stand-Alone Forms: My [employer], Smoking Cessation Medications and DC Order Prescriptions: New prednisone 20 mg tablet 40 mg PO DAILY 3 Days Qty: 6 RF: 0 azithromycin 250 mg tablet 250 mg PO DAILY 3 Days Qty: 3 RF: 0 Trelegy Ellipta 100-62.5-25 mcg blister with device 1 inh inhalation DAILY Qty: 30 RF: 0 Continued aspirin [Aspirin Low Dose] 81 mg Tablet,Delayed Release (Dr/Ec) 81 mg PO DAILY RF: 0 albuterol sulfate [Ventolin HFA] 90 mcg/actuation HFA aerosol inhaler 2 puff INHALATION Q4H PRN (Reason: Shortness Of Breath Or Wheezing) RF: 0 mirtazapine 45 mg tablet 22.5 mg PO HS RF: 0 sertraline [Zoloft] 100 mg tablet 200 mg PO HS RF: 0 clonazepam 1 mg tablet 1 mg PO TID RF: 0 ipratropium-albuterol 0.5 mg-3 mg(2.5 mg base)/3 mL solution for nebulization 3 ml inhalation Q4H PRN (Reason: Shortness Of Breath Or Wheezing) RF: 0 tizanidine [Zanaflex] 4 mg tablet 2 mg PO Q6H PRN (Reason: Muscle Spasm) RF: 0 olanzapine 2.5 mg tablet 2.5 mg PO HS RF: 0 Discontinued Anoro Ellipta 62.5-25 mcg/actuation blister with device 1 inh inhalation DAILY Qty: 60 RF: 0 Discharge Orders: Discharge Order (Routine); Ordered 03/26/21 Ordered By: Zulma Ch Admission Data Admit Date/Time: 03/25/21 09:07 Attending Provider: Zulma Ch Admit Provider: Zulma Ch Primary Care Provider: Chris Diaz Other Providers: Zulma Ch ; Cherelle Connolly ; Lazaro Garcia Other Interventions: Discharge Summary Assessment (RN) Last Done: 03/26/21 12:27
--- NOTE | 2021-03-26 17:00 | Electrocardiogram Report ---
Test Reason : Blood Pressure : / mmHG Vent. Rate : 058 BPM Atrial Rate : 058 BPM P-R Int : 124 ms QRS Dur : 078 ms QT Int : 362 ms P-R-T Axes : 066 071 080 degrees QTc Int : 355 ms Sinus bradycardia Otherwise normal ECG When compared with ECG of 21-FEB-2021 11:30, QT has shortened Confirmed by Stan Guzman ([id number]) on 03/26/2021 5:00:05 PM Referred By: ED Confirmed By:Den Guzman
--- NOTE | 2021-03-27 15:01 | Communication Note ---
Date of Service: March 27, 2021 Code 44 attestation: The chart of Elizabeth Lawrence, 1960 was evaluated and labs, EKG and imaging studies reviewed. He was managed appropriately by the attending, facility practice specialist and also court specialist. He was medically stable to be discharged. By [facility] guidelines, a determination that the admission or continued stay is not medically necessary has been made by a member of the UR committee and a physician for this hospital stay, therefore a Code 44 will be completed and the Inpatient admission will be changed to outpatient. DR Shen Scott Member UR Committee
== END 2021-03-26 15:09 | disposition home or self-care (01) ==
LOC: ED 05:38 → 2S 09:07 → INTOOBSV 09:07 → 2S 14:57

== ENCOUNTER 2021-04-25 10:30 | Inpatient (IN) ==
--- NOTE | 2021-04-25 11:13 | Emergency Department Note ---
Impression & Plan Acute respiratory acidosis, End stage COPD, Altered mental status, Respiratory failure ED Provider Note NAME: ZE BO AGE: 61 SEX: M : 1960 ARRIVES VIA: Ambulance INFORMANT: Patient, EMS ED PROVIDER(S): Tone Marshall DO CHIEF COMPLAINT: Altered mental status HPI: The patient is a 61-year-old male who presented to the emergency department for altered mental status. The patient arrived via ambulance. According to the prehospital personnel the patient is on oxygen chronically however he was not on his oxygen when they arrived. They placed the patient back on his oxygen and his mental status started to improve. The patient has a history of end-stage COPD. He has been seen in our facility for similar symptoms in the past. He was seen for syncope most recently only approximately 10 days ago. The patient denies having any chest pain. He denies having any nausea or vomiting. He states has been taking all of his medications only as prescribed. He states that he has no complaints at this time but is unsure why he is in the emergency department. ROS: See above HPI for pertinent positives & negatives. A total of 10 systems reviewed and were otherwise negative. PAST MEDICAL HISTORY: See Below PAST SURGICAL HISTORY: See Below FAMILY HISTORY: See Below SOCIAL HISTORY: See Below HOME MEDICATIONS: See Below ALLERGIES: See Below VITALS: See Below PHYSICAL EXAMINATION: GENERAL: The patient is awake and alert. The patient is nonanxious appearing and appears to be comfortable. EYES: The conjunctivae are clear. The pupils are round and reactive. EARS, NOSE, MOUTH AND THROAT: The nose is without any evidence of any deformity. Mucous membranes are moist. Tongue is midline. NECK: The neck is nontender and supple. RESPIRATORY: Diminished breath sounds are noted throughout. There were no rales rhonchi or wheezing appreciated. There was no conversational dyspnea. CARDIOVASCULAR: Regular rate and rhythm noted there no murmurs rubs or gallops normal S1 normal S2. GASTROINTESTINAL: The abdomen is soft. Abdomen is nontender. MUSCULOSKELETAL/EXTREMITIES: There is no evidence of gross deformity full range of motion is noted in the hips and shoulders. SKIN: There is no obvious evidence of any rash. There are no petechiae, pallor or cyanosis noted. NEUROLOGIC: Patient is awake alert and oriented x3 . Strength was symmetric MEDICAL DECISION MAKING: The patient is a 61-year-old male who has a history of COPD. The patient presented to the emergency department by ambulance for altered mental status. The patient's mental status certainly seems to wax and wane no known he while he was at home but while he is in the emergency department. He was awake and alert for me and answering questions appropriately but he took his oxygen off and tried to find his who did not come to the emergency department. He was found wandering down the j[place] very hypoxic and altered. He was brought back to his room and placed on BiPAP immediately. Laboratory and radiographic studies were obtained. He certainly appears to have significant respiratory acidosis which appears to be acute on chronic. The patient's oxygen saturation improved with BiPAP. He was also given a DuoNeb as well as steroids. He was reevaluated multiple times. I reviewed the patient's recent visits does show that he was evaluated by palliative medicine. Their note was reviewed and the patient has stated he does not wish to be placed on a ventilator. The patient at this time will still require noninvasive ventilation. I discussed his case with the on- call [facility]. Triage Nursing notes reviewed. Prior medical records reviewed Vital Signs: reviewed and remarkable for hypoxia. Differential diagnosis: Infection, hypoglycemia, electrolyte abnormalities, overdose, toxicologic, cardiac sources, intracerebral event, neurologic, trauma, as well as other pathologies. ER treatment provided: See below Diagnostics interpreted by me: ECG: EKG was obtained in the emergency department. My interpretation is normal sinus rhythm at 77 bpm. There is no ectopy. There is no acute ST segment abnormalities noted. This was compared to a tracing from April 152020. No changes were noted. Cardiac Monitoring: An order was placed for continuous cardiac monitoring. The monitor shows a rate of 82 bpm with sinus rhythm. Laboratory studies: As stated above and show below. Imaging studies: See below Consultation(s): I discussed this case with Isela perez who is on-call for the [facility]. They will evaluate the patient in emergency department. ED COURSE: 1130: The patient was found walking down the hallway with severe shortness of breath. He was confused and looking for his . He was found to have a pulse ox that was in the 40% range. He was placed back into his room. I was called to his room immediately. He had pulled his IV out. Another IV was placed and the patient was placed on BiPAP. Procedures: none Critical Care: I have personally spent greater than 50 minutes of critical care time in the dir ect management of this patient. This includes bedside care, interpretation of diagnostic studies, and testing, discussion with consultants, patient, and family members, and other required patient management activities. This 50 minutes is in excess of all separately billable procedures. Past Med/Surg History Medical History (Updated 04/26/21 @ 10:20 by SOPHIA Miguel) Agitation Altered mental status Anxiety Bipolar disorder Chronic pain Chronic respiratory failure COPD (chronic obstructive pulmonary disease) Dependence on supplemental oxygen End stage COPD H/O: CVA (cerebrovascular accident) Hemorrhage following tonsillectomy and adenoidectomy Hypoxia Palliative care encounter Tobacco use disorder Surgical History H/O shoulder surgery History of back surgery History of cervical spinal surgery History of hip surgery Family History Other Heart disease Social History Smoking Status: Former smoker Tobacco Type: Cigarettes packs per day: 1; Second Hand Exposure: No (UNKNOWN); Hx Alcohol Use: No Hx Substance Use: Yes Substance Use Type Other:: MEHT IN PER OLD CHART Preferred Language: [place] Communication Ability: Effective Napper Grinder Required: No Beliefs That Will Affect Care: None Current Living Situation: Spouse and Family Current Living Situation Comment: , Daughter, son in law, 2 grand children Feels Safe at Home: Yes Assistive Devices: Oxygen - Continuous Allergies Allergies Allergy/AdvReac Type Severity Reaction Status Date / Time No Known Allergies Allergy Verified 04/13/21 10:55 Home Meds Home Medications Medication Instructions Recorded Confirmed ipratropium 0.5 mg-albuterol 3 mg 3 ml INHALATION Q4H PRN 03/20/19 04/25/21 (2.5 mg base)/3 mL nebulization soln tizanidine 4 mg tablet (Zanaflex) 2 mg PO Q6H PRN 03/20/19 04/25/21 albuterol sulfate 90 mcg/actuation 2 puff INHALATION Q4H PRN 04/05/20 04/25/21 aerosol inhaler (Ventolin HFA) aspirin 81 mg tablet,delayed 81 mg PO DAILY 04/05/20 04/25/21 release (Aspirin Low Dose) clonazepam 1 mg tablet 1 mg PO TID 08/17/20 04/25/21 mirtazapine 45 mg tablet 45 mg PO HS 08/17/20 04/25/21 sertraline 100 mg tablet (Zoloft) 200 mg PO HS 08/17/20 04/25/21 olanzapine 2.5 mg tablet 2.5 mg PO HS 03/25/21 04/25/21 nicotine 21 mg/24 hr daily 21 mg TOPICAL DAILY 04/13/21 04/25/21 transdermal patch fluticasone fur. 100 mcg-umeclid 1 inh INHALATION DAILY 04/25/21 04/25/21 62.5 mcg-vilant 25 mcg inhalat.powder (Trelegy Ellipta) Results & Data (ED) Vital Signs Vital Signs - 24 hr 04/25/21 11:36 04/25/21 11:45 04/25/21 11:58 Pulse Rate 77 Pulse Rate [Apical] 80 Pulse Rate [Finger] 77 Respiratory Rate 18 23 Respiratory Effort / Characteristics Non-Labored Spontaneous Respiratory Depth Normal Respiratory Pattern Regular Blood Pressure [Left Arm] 125/75 Blood Pressure Mean [Left Arm] 91 Pulse Oximetry 100 100 100 Oxygen Delivery Method Nasal Cannula BiPAP BiPAP Oxygen Flow Rate 4 Fraction of Inspired Oxygen 30 Home Medications Current Medication List: was personally reviewed by me Laboratory Data Attestation: I reviewed the patient's lab results. Result diagrams: 04/25/21 11:13 04/25/21 11:13 Lab Results 04/25/21 04/25/21 04/25/21 Range/Units 11:13 11:13 11:13 WBC 8.33 (4.8-10.8) K/uL RBC 4.36 L (4.7-6.1) M/uL Hgb 12.9 L (14.0-18.0) g/dL Hct 44.4 (42-52) % MCV 101.8 H (80-100) fL MCH 29.6 (25-34) pg MCHC 29.1 L (32-36) g/dL RDW Std Deviation 49.9 H (36.4-46.3) fL RDW Coeff of Mani 13.2 (11.5-14.5) % Plt Count 162 (130-400) K/uL MPV 11.0 H (7.4-10.4) fL Immature Gran % (Auto) 0.2 % Neut % (Auto) 80.5 % Lymph % (Auto) 9.5 % [place] % (Auto) 9.5 % Eos % (Auto) 0.1 % Baso % (Auto) 0.2 % Neut # (Auto) 6.70 H (1.4-6.5) K/uL Lymph # (Auto) 0.79 L (1.2-3.4) K/uL [place] # (Auto) 0.79 H (0.11-0.59) K/uL Eos # (Auto) 0.01 (0-0.5) K/uL Baso # (Auto) 0.02 (0-0.2) K/uL Immature Gran # (Auto) 0.02 (0.00-0.02) K/uL PT 10.2 (9.0-12.0) Seconds INR 1.0 (0.9-1.1) APTT 23.9 (21.0-31.0) Seconds PTT Ratio 0.9 D-Dimer (0-500) ug/L FEU VBG pH (7.36-7.41) VBG pCO2 (38-50) mmHg VBG pO2 mmHg VBG HCO3 mmol/L VBG O2 Saturation % VBG Base Excess mEq/L Barometric Pressure mm/Hg Sodium 139 (136-145) mmol/L Potassium 4.4 (3.5-5.1) mmol/L Chloride 90 L (98-107) mmol/L Carbon Dioxide 53 H* (21-32) mmol/L Anion Gap -5.0 L (3-11) BUN 24 H (7-18) mg/dl Creatinine 0.94 (0.6-1.4) mg/dl Est Cr Clr Drug Dosing 61.4 ml/min Est GFR ( Amer) 100.3 ml/min Est GFR (Non-Af Amer) 86.5 ml/min BUN/Creatinine Ratio 25.7 H (10-20) Glucose 106 H (70-99) mg/dl Calcium 9.7 (8.5-10.1) mg/dl Magnesium 2.4 (1.8-2.4) mg/dl Total Bilirubin 0.5 (0.2-1) mg/dl AST 18 (15-37) U/L ALT 19 (12-78) U/L Alkaline Phosphatase 86 (45-117) U/L Ammonia (11-32) umol/L Total Creatine Kinase 54 (39-308) U/L Troponin I < 0.015 (0-0.045) ng/ml Total Protein 8.3 H (6.4-8.2) gm/dl Albumin 3.7 (3.4-5.0) gm/dl Globulin 4.6 H (2.5-4.0) gm/dl Albumin/Globulin Ratio 0.8 L (0.9-2) Procalcitonin (0-0.5) ng/ml TSH 0.598 (0.300-4.500) uIu/ml Ethyl Alcohol mg/dL (0-3) mg/dl 04/25/21 04/25/21 04/25/21 Range/Units 11:13 11:13 11:13 WBC (4.8-10.8) K/uL RBC (4.7-6.1) M/uL Hgb (14.0-18.0) g/dL Hct (42-52) % MCV (80-100) fL MCH (25-34) pg MCHC (32-36) g/dL RDW Std Deviation (36.4-46.3) fL RDW Coeff of Mani (11.5-14.5) % Plt Count (130-400) K/uL MPV (7.4-10.4) fL Immature Gran % (Auto) % Neut % (Auto) % Lymph % (Auto) % [place] % (Auto) % Eos % (Auto) % Baso % (Auto) % Neut # (Auto) (1.4-6.5) K/uL Lymph # (Auto) (1.2-3.4) K/uL [place] # (Auto) (0.11-0.59) K/uL Eos # (Auto) (0-0.5) K/uL Baso # (Auto) (0-0.2) K/uL Immature Gran # (Auto) (0.00-0.02) K/uL PT (9.0-12.0) Seconds INR (0.9-1.1) APTT (21.0-31.0) Seconds PTT Ratio D-Dimer (0-500) ug/L FEU VBG pH 7.19 L (7.36-7.41) VBG pCO2 148 H (38-50) mmHg VBG pO2 26 mmHg VBG HCO3 55 mmol/L VBG O2 Saturation < 60.0 % VBG Base Excess 19.7 mEq/L Barometric Pressure 735.2 mm/Hg Sodium (136-145) mmol/L Potassium (3.5-5.1) mmol/L Chloride (98-107) mmol/L Carbon Dioxide (21-32) mmol/L Anion Gap (3-11) BUN (7-18) mg/dl Creatinine (0.6-1.4) mg/dl Est Cr Clr Drug Dosing ml/min Est GFR ( Amer) ml/min Est GFR (Non-Af Amer) ml/min BUN/Creatinine Ratio (10-20) Glucose (70-99) mg/dl Calcium (8.5-10.1) mg/dl Magnesium (1.8-2.4) mg/dl Total Bilirubin (0.2-1) mg/dl AST (15-37) U/L ALT (12-78) U/L Alkaline Phosphatase (45-117) U/L Ammonia 18.0 (11-32) umol/L Total Creatine Kinase (39-308) U/L Troponin I (0-0.045) ng/ml Total Protein (6.4-8.2) gm/dl Albumin (3.4-5.0) gm/dl Globulin (2.5-4.0) gm/dl Albumin/Globulin Ratio (0.9-2) Procalcitonin (0-0.5) ng/ml TSH (0.300-4.500) uIu/ml Ethyl Alcohol mg/dL < 3.0 (0-3) mg/dl 04/25/21 04/25/21 Range/Units 11:13 11:25 WBC (4.8-10.8) K/uL RBC (4.7-6.1) M/uL Hgb (14.0-18.0) g/dL Hct (42-52) % MCV (80-100) fL MCH (25-34) pg MCHC (32-36) g/dL RDW Std Deviation (36.4-46.3) fL RDW Coeff of Mani (11.5-14.5) % Plt Count (130-400) K/uL MPV (7.4-10.4) fL Immature Gran % (Auto) % Neut % (Auto) % Lymph % (Auto) % [place] % (Auto) % Eos % (Auto) % Baso % (Auto) % Neut # (Auto) (1.4-6.5) K/uL Lymph # (Auto) (1.2-3.4) K/uL [place] # (Auto) (0.11-0.59) K/uL Eos # (Auto) (0-0.5) K/uL Baso # (Auto) (0-0.2) K/uL Immature Gran # (Auto) (0.00-0.02) K/uL PT (9.0-12.0) Seconds INR (0.9-1.1) APTT (21.0-31.0) Seconds PTT Ratio D-Dimer 260 (0-500) ug/L FEU VBG pH (7.36-7.41) VBG pCO2 (38-50) mmHg VBG pO2 mmHg VBG HCO3 mmol/L VBG O2 Saturation % VBG Base Excess mEq/L Barometric Pressure mm/Hg Sodium (136-145) mmol/L Potassium (3.5-5.1) mmol/L Chloride (98-107) mmol/L Carbon Dioxide (21-32) mmol/L Anion Gap (3-11) BUN (7-18) mg/dl Creatinine (0.6-1.4) mg/dl Est Cr Clr Drug Dosing ml/min Est GFR ( Amer) ml/min Est GFR (Non-Af Amer) ml/min BUN/Creatinine Ratio (10-20) Glucose (70-99) mg/dl Calcium (8.5-10.1) mg/dl Magnesium (1.8-2.4) mg/dl Total Bilirubin (0.2-1) mg/dl AST (15-37) U/L ALT (12-78) U/L Alkaline Phosphatase (45-117) U/L Ammonia (11-32) umol/L Total Creatine Kinase (39-308) U/L Troponin I (0-0.045) ng/ml Total Protein (6.4-8.2) gm/dl Albumin (3.4-5.0) gm/dl Globulin (2.5-4.0) gm/dl Albumin/Globulin Ratio (0.9-2) Procalcitonin 0.11 (0-0.5) ng/ml TSH (0.300-4.500) uIu/ml Ethyl Alcohol mg/dL (0-3) mg/dl Administered Medications Discontinued Medications Albuterol (Albut/Ipratrop 3mg/0.5mg Neb 3 Ml Vial) 12 ml NEB ONE ONE Stop: 04/25/21 11:32 Last Admin: 04/25/21 11:58 Dose: 12 ml Documented by: [id number] Albuterol (Albut/Ipratrop 3mg/0.5mg Neb 3 Ml Vial) 3 ml NEB QIDR [facility] Stop: 05/25/21 15:24 Last Admin: 04/25/21 15:42 Dose: Not Given Documented by: [id number] Albuterol (Albut/Ipratrop 3mg/0.5mg Neb 3 Ml Vial) 3 ml NEB QIDR [facility] Stop: 05/25/21 18:59 Last Admin: 04/25/21 18:06 Dose: 3 ml Documented by: [id number] Clonazepam (Clonazepam 1 Mg Tab) 1 mg PO TID LINDA Stop: 05/25/21 15:24 Last Admin: 04/26/21 00:40 Dose: Not Given Documented by: [id number] Admin: 04/25/21 16:40 Dose: 1 mg Documented by: [id number] Dexamethasone Sodium Phosphate (DexamethasonePf 10 Mg/Ml Vial) 10 mg IV NOW ONE Stop: 04/25/21 11:32 Last Admin: 04/25/21 11:50 Dose: 10 mg Documented by: [id number] Enoxaparin Sodium (Enoxaparin Inj 40 Mg/0.4 Ml Syr) 40 mg SQ Q24H [facility]DA Stop: 05/25/21 15:59 Last Admin: 04/25/21 16:36 Dose: 40 mg Documented by: [id number] Haloperidol Lactate (Haloperidol Lactate 5 Mg/Ml 1 Ml Vial) 5 mg IM NOW STA Stop: 04/25/21 13:52 Last Admin: 04/25/21 13:58 Dose: 5 mg Documented by: [id number] Haloperidol Lactate (Haloperidol Lactate 5 Mg/Ml 1 Ml Vial) 2 mg IM Q2H PRN PRN Reason: Agitation Stop: 05/25/21 21:49 Last Admin: 04/25/21 22:59 Dose: 2 mg Documented by: [id number] Lorazepam (Ativan) 0.5 mg in 1 mls @ 1 mls/min IV NOW STA Stop: 04/25/21 12:24 Last Admin: 04/25/21 12:25 Dose: 1 mls/min Documented by: [id number] Lorazepam (Ativan) 0.5 mg in 1 mls @ 1 mls/min IV NOW STA Stop: 04/25/21 12:43 Last Admin: 04/25/21 12:45 Dose: 1 mls/min Documented by: [id number] Doxycycline Hyclate 100 mg/ (Dextrose) 110 mls @ 50 mls/hr IV Q12H LINDA Stop: 05/02/21 15:59 Last Infusion: 04/25/21 18:48 Dose: 0 mls/hr Documented by: [id number] Admin: 04/25/21 16:36 Dose: 50 mls/hr Documented by: [id number] Methylprednisolone 40 mg/ (Syringe) 0.64 mls @ 1.5 mls/min IV Q8H [facility]DA Stop: 05/25/21 19:59 Last Admin: 04/25/21 19:27 Dose: 1.5 mls/min Documented by: [id number] Lorazepam (Ativan) 1 mg in 2 mls @ 0.5 mls/min IV Q15M PRN PRN Reason: Anxiety/Agitation Stop: 05/26/21 01:39 Last Admin: 04/26/21 02:49 Dose: 0.5 mls/min Documented by: [id number] Lorazepam (Lorazepam 2 Mg/4 Ml Vial) Confirm Administered Dose 2 mg .ROUTE .STK- MED ONE Stop: 04/25/21 12:24 Last Admin: 04/25/21 12:27 Dose: Not Given Documented by: [id number] Methylprednisolone (Methylprednisolone 40 Mg/Ml Vial) 40 mg IV Q8H [facility] Stop: 05/25/21 12:44 Last Admin: 04/25/21 15:42 Dose: Not Given Documented by: [id number] Mirtazapine (Mirtazapine Soltab 15 Mg) 45 mg PO HS LINDA Stop: 05/25/21 20:59 Last Admin: 04/25/21 19:27 Dose: 45 mg Documented by: [id number] Morphine Sulfate (Morphine Sulfate 4 Mg/Ml 1 Ml Carp\Vial) 4 mg IV Q15M PRN PRN Reason: Pain Stop: 05/10/21 01:39 Last Admin: 04/26/21 07:41 Dose: 4 mg Documented by: [id number] Admin: 04/26/21 02:54 Dose: 4 mg Documented by: [id number] Olanzapine (Olanzapine 10 Mg/2.1 Ml Sdv) 1.25 mg IM NOW STA Stop: 04/25/21 13:15 Last Admin: 04/25/21 13:16 Dose: 1.25 mg Documented by: [id number] Olanzapine (Olanzapine 10 Mg/2.1 Ml Sdv) Confirm Administered Dose 10 mg IM .STK-MED ONE Stop: 04/25/21 13:13 Last Admin: 04/25/21 13:17 Dose: Not Given Documented by: [id number] Olanzapine (Olanzapine 2.5 Mg Tab) 2.[address] [facility] Stop: 05/25/21 20:59 Last Admin: 04/25/21 19:27 Dose: 2.5 mg Documented by: [id number] Sertraline HCl (Sertraline Hcl 100 Mg Tablet) [address] [facility] Stop: 05/25/21 20:59 Last Admin: 04/25/21 19:26 Dose: 200 mg Documented by: [id number] Imaging Data Radiologist's Impression: Chest X-Ray 04/25/21 10:54 XR chest 1V portable CLINICAL HISTORY: weakness COMPARISON STUDY: Chest radiograph April 15, 2021. FINDINGS: Postoperative findings within the cervical spine are incidentally noted. Emphysema is noted. There are old bilateral rib fractures. Cardiac size is normal. Mediastinal contours are normal. There is no pneumothorax or pleural effusion. IMPRESSION: No acute cardiopulmonary findings. Emphysema. ACT 112: Negative or not required by law. Electronically signed by: Daniel Gaitan M.D. 04/25/2021 12:17 PM Discharge Plan Visit Data Chief Complaint: Confusion ED Provider: Tone Marshall Discharge Problem: Acute respiratory acidosis, End stage COPD, Altered mental status, Respiratory failure Patient Disposition: Admitted As Inpatient Discharge Instructions Interventions: ED Discharge Assessment Last Done: 04/25/21 15:05 Discharge Problem: Altered mental status Qualifiers: Altered mental status type: unspecified Qualified Code(s): R41.82 - Altered mental status, unspecified Respiratory failure Qualifiers: Chronicity: acute on chronic Respiratory failure complication: hypoxia and hype rcapnia Qualified Code(s): J96.21 - Acute and chronic respiratory failure with hypoxia
--- NOTE | 2021-04-25 11:25 | Electrocardiogram Report ---
Test Reason : Blood Pressure : / mmHG Vent. Rate : 077 BPM Atrial Rate : 077 BPM P-R Int : 126 ms QRS Dur : 078 ms QT Int : 352 ms P-R-T Axes : 062 064 080 degrees QTc Int : 398 ms Normal sinus rhythm Normal ECG When compared with ECG of 15-APR-2021 09:44, Nonspecific T wave abnormality no longer evident in Anterior leads Confirmed by Toen Penny ([id number]) on 04/25/2021 11:25:39 AM Referred By: Confirmed By:Tone Penny
[2021-04-25 11:30] LABS: Base Excess VBG 19.7 mEq/L; HCO3 VBG 55 mmol/L; PCO2 VBG 148 mmHg (38-50); PO2 VBG 26 mmHg; pH VBG 7.19 (7.36-7.41)
[2021-04-25 11:31] LABS: Oxygen Saturation VBG < 60.0 %
[2021-04-25] MEDS ORDERED: dexAMETHasone**PF** 10 MG/ML VIAL IV ONE (11:31)
[2021-04-25] MEDS ORDERED: ALBUT/IPRATROP 3MG/0.5MG NEB 3 ML VIAL NEB ONE (11:31)
[2021-04-25 11:40] LABS: Basophils # (auto) 0.02 K/uL (0-0.2); Basophils % (auto) 0.2 %; Eosinophils # (auto) 0.01 K/uL (0-0.5); Eosinophils % (auto) 0.1 %; Hematocrit (blood only) 44.4 % (42-52); Hemoglobin 12.9 g/dL (14.0-18.0); Immature Granulocytes # (auto) 0.02 K/uL (0.00-0.02); Immature Granulocytes % (auto) 0.2 %; Lymphocytes # (auto) 0.79 K/uL (1.2-3.4); Lymphocytes % (auto) 9.5 %; Mean Corpuscular Hemoglobin 29.6 pg (25-34); Mean Corpuscular Hgb Conc 29.1 g/dL (32-36); Mean Corpuscular Volume 101.8 fL (80-100); Monocytes # (auto) 0.79 K/uL (0.11-0.59); Monocytes % (auto) 9.5 %; Neutrophils % (auto) 80.5 %; Platelet Count 162 K/uL (130-400); RDW Coefficient of Variation 13.2 % (11.5-14.5); RDW Standard Deviation 49.9 fL (36.4-46.3); Red Blood Count 4.36 M/uL (4.7-6.1); White Blood Count 8.33 K/uL (4.8-10.8)
[2021-04-25 11:41] LABS: Partial Thromboplastin Ratio 0.9; Partial Thromboplastin Time 23.9 Seconds (21.0-31.0); Prothrombin Time 10.2 Seconds (9.0-12.0)
[2021-04-25 12:02] LABS: Alanine Aminotransferase 19 U/L (12-78); Albumin Globulin Ratio 0.8 (0.9-2); Albumin Level 3.7 gm/dl (3.4-5.0); Alkaline Phosphatase 86 U/L (45-117); Aspartate Aminotransferase 18 U/L (15-37); BUN Creatinine Ratio 25.7 (10-20); Bilirubin,Total 0.5 mg/dl (0.2-1); Blood Urea Nitrogen 24 mg/dl (7-18); Calcium 9.7 mg/dl (8.5-10.1); Carbon Dioxide 53 mmol/L (21-32); Chloride 90 mmol/L (98-107); Creatine Kinase 54 U/L (39-308); Creatinine Clr Calc Pharmacy 61.4 ml/min; Est GFR (African American) 100.3 ml/min; Est GFR (Non-African American) 86.5 ml/min; Globulin 4.6 gm/dl (2.5-4.0); Glucose 106 mg/dl (70-99); Magnesium 2.4 mg/dl (1.8-2.4); Potassium 4.4 mmol/L (3.5-5.1); Sodium 139 mmol/L (136-145); Thyroid Stimulating Hormone 0.598 uIu/ml (0.300-4.500); Total Protein 8.3 gm/dl (6.4-8.2); Troponin I < 0.015 ng/ml (0-0.045)
[2021-04-25 12:15] LABS: D Dimer 260 ug/L FEU (0-500)
--- NOTE | 2021-04-25 12:18 | XRay Report ---
XR chest 1V portable CLINICAL HISTORY: weakness COMPARISON STUDY: Chest radiograph April 15, 2021. FINDINGS: Postoperative findings within the cervical spine are incidentally noted. Emphysema is noted . There are old bilateral rib fractures. Cardiac size is normal. Mediastinal contours are normal. The re is no pneumothorax or pleural effusion. IMPRESSION: No acute cardiopulmonary findings. Emphysema. ACT 112: Negative or not required by law. Electronically signed by: Daniel Gaitan M.D. 04/25/2021 12:17 PM
[2021-04-25] MEDS ORDERED: LORazepam 2 MG/4 ML VIAL ONE (12:23)
[2021-04-25] MEDS ORDERED: LORazepam 0.5 MG/1 ML VIAL IV STA ×2 (12:23→12:42)
--- NOTE | 2021-04-25 13:00 | History & Physical Report ---
Date of Service April 25, 2021 Assessment & Plan (1) Acute on chronic respiratory failure with hypoxia and hypercapnia: (2) Acute metabolic encephalopathy: (3) End stage COPD: Plan: -Admit to telemetry -Patient presenting from home for evaluation of altered mental status -In the ED, VBG shows pH 7.19, PCO2 148. Patient confused, agitated at times, attempting to remove medical devices. -Per , patient is noncompliant with oxygen at times and rarely uses BiPAP at home. Acute on chronic hypoxia and hypercapnia likely secondary to noncompliance. -Continue BiPAP, recheck ABG -Received IV Ativan 0.5 mg IV x 2 doses without much improvement agitation, will give IM Zyprexa 1.25 mg (patient takes at home) -Empiric doxycycline. No infiltrate noted on CXR. CTA chest pending. -S/p IV dexamethasone in the ED, continue with IV Solu-Medrol -Continue supportive care with nebs, flutter valve, incentive spirometer (4) Bipolar disorder: Plan: -Agitation/confusion likely secondary to hypercapnia -Continue home medications, correct hypercapnia and mental status should improve (5) H/O: CVA (cerebrovascular accident): Plan: -Continue ASA (6) DVT prophylaxis: Plan: -SQ Lovenox (7) Discharge planning issues: Plan: -Discussed post hospitalization care with patient's . Noted the patient had a palliative care evaluation 1 month ago. is aware that patient's COPD is end-stage. Reports that he is difficult to take care of at home with his noncompliance issues. is agreeable to [facility] [place] [facility]. Also will have palliative care reevaluate the patient. PT/OT maria. History of Present Illness Chief Complaint: Confusion Primary Care Provider: Chris Diaz DO 61-year-old male with PMH end-stage oxygen dependent COPD, bipolar disorder, chronic pain, and other problems listed below who presents to the ED for evaluation of altered mental status. History is unobtainable from the patient. I spoke to the patient's on the telephone who provided the history. She reports that this morning around 6 AM, patient was talking to himself and not making any sense. observed that patient was off his oxygen. Oxygen was put back on the patient however symptoms not improved. reports that the patient has been having increasing episodes of incontinence over the past week. She also notes episodes of hallucinations. This morning, patient appeared to be generally weak and stumbling when trying to walk. He was also dropping things. Patient is to wear 4 L of oxygen at all times however reports that he frequently takes it off. He is also to wear BiPAP at night however very rarely uses it. In the ED, patient is confused and attempting to crawl out of bed. He took his oxygen off once and desaturated into the 40s. Patient was placed on BiPAP. VBG suggests a respiratory acidosis with pH 7.19, PCO2 148. Other labs unremarkable. CXR negative for acute cardiopulmonary findings. Patient was given nebulizer treatment and IV dexamethasone 10 mg. Allergies Allergy/AdvReac Type Severity Reaction Status Date / Time No Known Allergies Allergy Verified 04/13/21 10:55 Home Medications Medication Instructions Recorded Confirmed Type ipratropium 0.5 mg-albuterol 3 mg 3 ml INHALATION Q4H PRN 03/20/19 04/25/21 History (2.5 mg base)/3 mL nebulization soln tizanidine 4 mg tablet (Zanaflex) 2 mg PO Q6H PRN 03/20/19 04/25/21 History albuterol sulfate 90 mcg/actuation 2 puff INHALATION Q4H PRN 04/05/20 04/25/21 History aerosol inhaler (Ventolin HFA) aspirin 81 mg tablet,delayed 81 mg PO DAILY 04/05/20 04/25/21 History release (Aspirin Low Dose) clonazepam 1 mg tablet 1 mg PO TID 08/17/20 04/25/21 History mirtazapine 45 mg tablet 45 mg PO HS 08/17/20 04/25/21 History sertraline 100 mg tablet (Zoloft) 200 mg PO HS 08/17/20 04/25/21 History olanzapine 2.5 mg tablet 2.5 mg PO HS 03/25/21 04/25/21 History nicotine 21 mg/24 hr daily 21 mg TOPICAL DAILY 04/13/21 04/25/21 History transdermal patch fluticasone fur. 100 mcg-umeclid 1 inh INHALATION DAILY 04/25/21 04/25/21 History 62.5 mcg-vilant 25 mcg inhalat.powder (Trelegy Ellipta) Past Med/Surg History Medical History Anxiety Bipolar disorder Chronic pain Chronic respiratory failure COPD (chronic obstructive pulmonary disease) Dependence on supplemental oxygen End stage COPD H/O: CVA (cerebrovascular accident) Hemorrhage following tonsillectomy and adenoidectomy Tobacco use disorder Surgical History H/O shoulder surgery History of back surgery History of cervical spinal surgery History of hip surgery Family History Other Heart disease Social History Smoking Status: Former smoker Tobacco Type: Cigarettes packs per day: 1; Second Hand Exposure: No (UNKNOWN); Hx Alcohol Use: No Hx Substance Use: Yes Substance Use Type Other:: MEHT IN PER OLD CHART Preferred Language: Yoruba Communication Ability: Effective Top Knitter Required: No Beliefs That Will Affect Care: None Current Living Situation: Spouse and Family Current Living Situation Comment: , Daughter, son in law, 2 grand children Feels Safe at Home: Yes Assistive Devices: BiPap and Oxygen - Continuous Review of Systems Review of Systems: Unobtainable due to cognitive status Physical Exam Constitutional: + cachectic Bitemporal wasting, vitals as above Eyes: PERRL, conjunctivae normal, anicteric sclerae ENMT: external ear and nose normal, oropharynx normal Respiratory: normal respiratory effort; no respiratory distress Auscultation: + diminished lung sounds On BiPAP Cardiovascular: Rate/Rhythm: regular rate and regular rhythm Vessels: normal peripheral pulses Extremities: no edema Gastrointestinal (Abdomen): normal bowel sounds, soft, nontender, no hepatosplenomegaly Musculoskeletal: Extremities: no cyanosis and no clubbing Patient not following commands to accurately assess strength however appears to be moving all extremities Skin: no rashes, warm and dry Neurologic: PERRL, EOMI, accommodation nl, no face palsy, no dysarthria Psychiatric: Orientation: alert and oriented to person; + not oriented to place, + not oriented to time and + uncooperative (Restless, frequently attempting to move medical devices) Results & Data Results & Data ([facility]) Vital Signs (Past 12 Hours) Vital Signs Pulse Pulse Resp BP BP Pulse Ox 04/25/21 12:45 79 20 116/76 95 04/25/21 11:45 80 18 125/75 100 04/25/21 11:36 100 04/25/21 10:45 97 04/25/21 10:30 78 20 120/83 97 Laboratory Results Short CBC 04/25/21 Range/Units 11:13 WBC 8.33 (4.8-10.8) K/uL Hgb 12.9 L (14.0-18.0) g/dL Hct 44.4 (42-52) % Plt Count 162 (130-400) K/uL BMP 04/25/21 11:13 Sodium 139 Potassium 4.4 Chloride 90 L Carbon Dioxide 53 H* BUN 24 H Creatinine 0.94 Glucose 106 H Calcium 9.7 Cardiac Enzymes 04/25/21 Range/Units 11:13 Total Creatine Kinase 54 (39-308) U/L Troponin I < 0.015 (0-0.045) ng/ml Liver Function 04/25/21 Range/Units 11:13 Total Bilirubin 0.5 (0.2-1) mg/dl AST 18 (15-37) U/L ALT 19 (12-78) U/L Alkaline Phosphatase 86 (45-117) U/L Albumin 3.7 (3.4-5.0) gm/dl Diagnostic Findings Chest X-Ray 04/25/21 10:54 XR chest 1V portable CLINICAL HISTORY: weakness COMPARISON STUDY: Chest radiograph April 15, 2021. FINDINGS: Postoperative findings within the cervical spine are incidentally noted. Emphysema is noted. There are old bilateral rib fractures. Cardiac size is normal. Mediastinal contours are normal. There is no pneumothorax or pleural effusion. IMPRESSION: No acute cardiopulmonary findings. Emphysema. ACT 112: Negative or not required by law. Electronically signed by: Daniel Gaitan M.D. 04/25/2021 12:17 PM Code Status & VTE Plan Code Status Patient is a DNR as per my discussion with patient's , Loretta. VTE Prophylaxis Plan VTE Prophylaxis will be ordered: Yes Supervising Physician Co-Signing Physician Notes Patient is a 61-year-old man with end-stage COPD, chronic oxygen dependency on 4 L of supplemental oxygen at baseline, noncompliance with BiPAP use, bipolar disorder and other medical problems presents with altered mental status. Patient is agitated, confused and unable to provide any history while in ED. Most of the history is obtained from old records, family, ER staff. Please review HPI for complete details of presentation. Blood work suggestive of respiratory acidosis, hypercapnia. Covid screen is negative. Chest x-ray showed no acute process. CT head currently pending. On exam patient is thin, frail, chronically appearing, agitated and confused, normocephalic atraumatic, EOMI, alert, awake, decreased breath sounds, clear to auscultation, S1-S2, no murmur, no pedal edema, abdomen soft, nontender, normal bowel sounds, unable to perform complete neurological exam. Patient is admitted for management of acute on chronic respiratory failure with hypoxia, hypercapnia secondary to COPD exacerbation. Acute metabolic encephalopathy likely secondary to above. CT head pending. Agree with glucocorticoid, bronchodilators, doxycycline and pulmonary hygiene. Consult palliative care and pulmonary evaluation. We will keep him n.p.o. for now. Aspiration, fall precautions. I personally reviewed the record. Patient is interviewed and examined at bedside. Patient's care is coordinated with Isela Paige AIRCRAFT STRUCTURAL REPAIRER. Please refer to the documentation above for details of patient's presentation and for discussion of other issues.
[2021-04-25] MEDS ORDERED: OLANZapine 10 MG/2.1 ML SDV IM ONE (13:12)
[2021-04-25] MEDS ORDERED: OLANZapine 10 MG/2.1 ML SDV IM STA (13:14)
[2021-04-25] MEDS ORDERED: HALOPERIDOL LACTATE 5 MG/ML 1 ML VIAL IM STA (13:51)
[2021-04-25] MEDS ORDERED: ALBUT/IPRATROP 3MG/0.5MG NEB 3 ML VIAL NEB SCH ×2 (15:25→19:00)
[2021-04-25] MEDS ORDERED: ACETAMINOPHEN 325 MG TAB PO PRN (15:25)
[2021-04-25] MEDS ORDERED: ENOXAPARIN INJ 40 MG/0.4 ML SYR SQ SCH (16:00)
[2021-04-25] MEDS ORDERED: DOXYCYCLINE HYCLATE 100 MG in DEXTROSE 5% 100 ML IV SCH (16:00)
[2021-04-25 16:23] LABS: Allen Test Pos (Pos); Base Excess ABG 20.6 mEq/L (-9-1.8); HCO3 ABG 49 mmol/L (19-24); Oxygen Saturation ABG 92.2 % (90-95); PCO2 ABG 79 mmHg (35-46); PO2 ABG 58 mmHg (80-95); pH ABG 7.41 (7.35-7.45)
[2021-04-25] MEDS: clonazePAM 1 MG TAB PO SCH (16:40)
[2021-04-25] MEDS ORDERED: methylPREDNISolone 40 MG in SYRINGE 0 ML IV SCH (20:00)
[2021-04-25 20:59] LABS: Base Excess ABG 18.3 mEq/L (-9-1.8); HCO3 ABG 47 mmol/L (19-24); Oxygen Saturation ABG 93.5 % (90-95); PCO2 ABG 79 mmHg (35-46); PO2 ABG 67 mmHg (80-95); pH ABG 7.39 (7.35-7.45)
[2021-04-25 21:00] LABS: Allen Test Pos (Pos)
[2021-04-25] MEDS ORDERED: SERTRALINE HCL 100 MG TABLET PO SCH (21:00)
[2021-04-25] MEDS ORDERED: OLANZAPINE 2.5 MG TAB PO SCH (21:00)
[2021-04-25] MEDS ORDERED: MIRTAZAPINE SOLTAB 15 MG PO SCH (21:00)
[2021-04-25] MEDS ORDERED: HALOPERIDOL LACTATE 5 MG/ML 1 ML VIAL IM PRN (21:50)
[2021-04-26] MEDS: clonazePAM 1 MG TAB PO SCH (00:40)
--- NOTE | 2021-04-26 01:36 | Communication Note ---
Date of Service: April 26, 2021 Patient increasingly agitated and refusing to take oral medications, later BiPAP. Patient updated of developments over the phone. Transition to comfort measures requested.
[2021-04-26] MEDS ORDERED: LORazepam 1 MG/2 ML VIAL IV PRN (01:40)
[2021-04-26] MEDS ORDERED: ONDANSETRON INJ 2 MG/ML 2 ML VIAL IV PRN (01:40)
[2021-04-26] MEDS ORDERED: GLYCOPYRROLATE 0.2 MG/ML VIAL IV PRN (01:40)
[2021-04-26] MEDS: MoRPHine SULFATE 4 MG/ML 1 ML CARP\\VIAL IV PRN ×2 (02:54→07:41)
[2021-04-26] MEDS ORDERED: UMECLIDINIUM/VILANTEROL 62.5/25MCG 7 PUFFS/INHALER INH SCH (09:00)
[2021-04-26] MEDS ORDERED: ASPIRIN 81 MG ECTAB PO SCH (09:00)
[2021-04-26] MEDS ORDERED: FLUTICASONE FUROATE 100MCG 14 PUFFS/INHALER INH SCH (09:00)
[2021-04-26] MEDS ORDERED: NICOTINE 21 MG/24 HR TDSY TD SCH (09:00)
--- NOTE | 2021-04-26 10:22 | Palliative Care Consultation ---
Date of Consultation April 26, 2021 Assessment & Plan (1) Palliative care encounter: Mr. Reed Aldrich presented to the [facility] with increased gait disturbance and altered mental status at home. He has historically been non-compliant with his home O2 and rarely used his prescribed Bipap at night. He has an additional PMH that includes Bipolar disorder and CVA. He has had increased agitation and cachexia more recently and an overall decline over the past 6-8 months. Palliative Medicine was consulted to discuss overall goals of care. I was able to meet with the patient in room 307. He was sleeping, but arousable and confused. He was disheveled in the bed and per nursing has been increasingly agitated. Overall goal has transitioned to comfort focus approach to his care. His , Loretta, arrived at the hospital and I was able to talk with her at length. Apparently, his overall condition has been more challenging to manage at home with worsening confusion, increased falls and finding him waking in the night and wondering. We discussed comfort measures and the medications used, including Morphine and Ativan for agitation. See below for further recommendations and changes. We discussed that our goal is to have him be more comfortable and then reassess the possibility of returning home with hospice support. For now, continue comfort measures. Could consider GIP approach, should he continue to be agitated. Palliative will follow. (2) Agitation: Patient with intermittent agitation. Responds well to Ativan PRN. Due to transition to comfort measures and increased agitation not being a comfort focus and not comforting to family, will schedule Ativan 1mg IV Q4 scheduled. Also will have Zyprexa 5mg ODT Q8 PRN for additional agitation. (3) Altered mental status: Pt increasingly confused. He is unable to tell me where he is or any of his family members names. Per discussion with his , Loretta, he has been worsening moreso over the past 6-8 months more rapidly. She described finding him in the middle of the night, confused and huddled in a corner naked. (4) Hypoxia: (5) Acute on chronic respiratory failure with hypoxia and hypercapnia: History of Present Illness Reason for Consultation: goals of care Requesting Physician: Isela CORTES Attending Physician: Jorge L Almodovar MD History of Present Illness Mr. Reed Aldrich presented to the [facility] with increased gait disturbance and altered mental status at home. He has historically been non-compliant with his home O2 and rarely used his prescribed Bipap at night. He has an additional PMH that includes Bipolar disorder and CVA. He has had increased agitation and cachexia more recently and an overall decline over the past 6-8 months. Palliative Medicine was consulted to discuss overall goals of care. Please see A/P for further details. Thanks for involving palliative medicine with this individual. Allergies Allergy/AdvReac Type Severity Reaction Status Date / Time No Known Allergies Allergy Verified 04/13/21 10:55 Home Medications Medication Instructions Recorded Confirmed Type ipratropium 0.5 mg-albuterol 3 mg 3 ml INHALATION Q4H PRN 03/20/19 04/25/21 History (2.5 mg base)/3 mL nebulization soln tizanidine 4 mg tablet (Zanaflex) 2 mg PO Q6H PRN 03/20/19 04/25/21 History albuterol sulfate 90 mcg/actuation 2 puff INHALATION Q4H PRN 04/05/20 04/25/21 History aerosol inhaler (Ventolin HFA) aspirin 81 mg tablet,delayed 81 mg PO DAILY 04/05/20 04/25/21 History release (Aspirin Low Dose) clonazepam 1 mg tablet 1 mg PO TID 08/17/20 04/25/21 History mirtazapine 45 mg tablet 45 mg PO HS 08/17/20 04/25/21 History sertraline 100 mg tablet (Zoloft) 200 mg PO HS 08/17/20 04/25/21 History olanzapine 2.5 mg tablet 2.5 mg PO HS 03/25/21 04/25/21 History nicotine 21 mg/24 hr daily 21 mg TOPICAL DAILY 04/13/21 04/25/21 History transdermal patch fluticasone fur. 100 mcg-umeclid 1 inh INHALATION DAILY 04/25/21 04/25/21 History 62.5 mcg-vilant 25 mcg inhalat.powder (Trelegy Ellipta) Patient History Medical History Agitation Altered mental status Anxiety Bipolar disorder Chronic pain Chronic respiratory failure COPD (chronic obstructive pulmonary disease) Dependence on supplemental oxygen End stage COPD H/O: CVA (cerebrovascular accident) Hemorrhage following tonsillectomy and adenoidectomy Hypoxia Palliative care encounter Tobacco use disorder Surgical History H/O shoulder surgery History of back surgery History of cervical spinal surgery History of hip surgery Family History Other Heart disease Social History Smoking Status: Former smoker Tobacco Type: Cigarettes packs per day: 1; Second Hand Exposure: No (UNKNOWN); Hx Alcohol Use: No Hx Substance Use: Yes Substance Use Type Other:: MEHT IN PER OLD CHART Preferred Language: Japanese Communication Ability: Impaired Assistant Program Director Required: No Beliefs That Will Affect Care: None marital status: Current Living Situation: Spouse and Family Current Living Situation Comment: , Daughter, son in law, 2 grand children Feels Safe at Home: Yes Assistive Devices: Oxygen - Continuous Review of Systems Review of Systems: Bitely System Assessment Scale: Pain: 1/3 by observation Anxiety: 1/3 by observation Shortness of breath: 2/3 by observation Palliative Performance Scale: 20% Physical Exam Constitutional: + ill appearing, + frail appearing and + disheveled ENMT: Mouth: + dry oral mucous membranes Respiratory: + labored breathing, + uses accessory muscles and + cough Cardiovascular: Rate/Rhythm: regular rate and regular rhythm Heart Sounds: normal S1 and normal S2 Extremities: + abnormal capillary refill and no edema Gastrointestinal (Abdomen): Inspection/Auscultation: abdomen normal to inspection Percussion/Palpation: abdomen soft Psychiatric: Orientation: alert Insight: + poor insight Judgement: + poor judgement Results & Data ([facility]) Vital Signs (Past 12 Hours) Vital Signs Temp Pulse Pulse Resp BP Pulse Ox 04/25/21 23:07 36.9 C 79 20 136/83 97 04/25/21 22:54 83 22 98 PG Care Time/CCT Total # of Minutes Spent Total Time Spent with Patient: Total time spent is greater than 50% in coordination of care (as documented) at patient's floor/unit and/or counseling patient: 100 minutes with > 50% of that time spent assessing the patient, discussing goals of care, addressing symptom management needs and collaborating with IDT. Coding Level of Care Code 35959 Initial Inpt Care Lvl 3 Diagnoses Palliative care encounter Z51.5 Agitation R45.1 Altered mental status R41.82 Hypoxia R09.02 Acute on chronic respiratory failure with hypoxia and hypercapnia J96.21; J96.22 Time Spent (min) 100
--- NOTE | 2021-04-26 12:22 | Hospitalist Progress Note ---
Date of Service April 26, 2021 Assessment & Plan (1) Comfort measures only status: (2) Acute on chronic respiratory failure with hypoxia and hypercapnia: (3) Acute metabolic encephalopathy: (4) End stage COPD: Plan: -Patient presented from home for evaluation of altered mental status -In the ED, VBG shows pH 7.19, PCO2 148. Patient confused, agitated at times, attempting to remove medical devices. -Per , patient is noncompliant with oxygen at times and rarely uses BiPAP at home. Acute on chronic hypoxia and hypercapnia likely secondary to noncompliance. -Overnight, patient with increased agitation and refusal of BiPAP. Hiv Cts Specialist discussed with who agreed to transition to comfort measures only. -Palliative care consult (5) Bipolar disorder: Plan: -Agitation/confusion likely secondary to hypercapnia -Routine home medications discontinued in the setting of comfort measures -Olanzapine 5 mg q8h PRN ordered by palliative care team (6) H/O: CVA (cerebrovascular accident): Plan: -ASA discontinued in the setting of comfort measures (7) DVT prophylaxis: Plan: -Deferred due to comfort measures Plan: severe protein-calorie malnutrition BMI 15.9 Admission and Anticipated Discharge Date Admission Date: April 25, 2021 Supervising Physician Co-Signing Physician Notes Patient is seen and examined at bedside No distress on exam Currently on comfort measures only Discussed with patient's family at bedside On exam patient is thin, frail, chronically appearing, normocephalic atraumatic, EOMI, alert, awake, decreased breath sounds, clear to auscultation, S1-S2, no murmur, no pedal edema, abdomen soft, nontender, normal bowel sounds, unable to perform complete neurological exam. Acute on chronic respiratory failure with hypoxia, hypercapnia secondary to COPD exacerbation. Acute metabolic encephal opathy. Currently on comfort measures only. Family agrees with current management. Palliative care consulted. I personally reviewed the record. Patient is interviewed and examined at bedside. Patient's care is coordinated with Isela Paige ALCOHOL AND DRUG COUNSELOR. Please refer to the documentation above for details of patient's presentation and for discussion of other issues. Subjective Patient seen and examined. Follow-up for acute on chronic hypoxic and hypercapnic respiratory failure, End-stage COPD Increased agitation overnight with refusal to wear BiPAP and take medications. Hiv Cts Specialist discussed with who agreed to transition to comfort measures only. At the time of my exam, patient minimally responsive however just received a dose of pain medication. Resting comfortably in no distress. Physical Exam Constitutional: + cachectic; no acute distress Respiratory: normal respiratory effort; no respiratory distress Auscultation: + diminished lung sounds Cardiovascular: Rate/Rhythm: regular rate and regular rhythm Vessels: normal peripheral pulses Extremities: no edema Gastrointestinal (Abdomen): Percussion/Palpation: abdomen soft; abdomen nontender Psychiatric: Orientation: + not alert (Minimally responsive to loud verbal and tactile stimuli)
[2021-04-26] MEDS: LORazepam 1 MG/2 ML VIAL IV SCH ×4 (12:39→23:13)
[2021-04-27] MEDS: LORazepam 1 MG/2 ML VIAL IV SCH ×6 (04:03→21:19)
[2021-04-27] MEDS: MoRPHine SULFATE 4 MG/ML 1 ML CARP\\VIAL IV PRN (09:03)
--- NOTE | 2021-04-27 10:23 | Hospitalist Progress Note ---
Date of Service April 27, 2021 Assessment & Plan (1) Comfort measures only status: (2) Acute on chronic respiratory failure with hypoxia and hypercapnia: (3) Acute metabolic encephalopathy: (4) End stage COPD: Plan: -Patient presented from home for evaluation of altered mental status -In the ED, VBG shows pH 7.19, PCO2 148. Patient confused, agitated at times, attempting to remove medical devices. -Per , patient is noncompliant with oxygen at times and rarely uses BiPAP at home. Acute on chronic hypoxia and hypercapnia likely secondary to noncompliance. -Patient transitioned to comfort care on 04/26 -Palliative care following -Pending clinical course, home with hospice vs. residential placement (5) Bipolar disorder: Plan: -Agitation/confusion likely secondary to hypercapnia -Routine home medications discontinued in the setting of comfort measures -Scheduled Ativan and olanzapine 5 mg q8h PRN ordered by palliative care team (6) H/O: CVA (cerebrovascular accident): Plan: -ASA discontinued in the setting of comfort measures (7) Severe protein-calorie malnutrition: Plan: -BMI 15.9 (8) DVT prophylaxis: Plan: -Deferred due to comfort measures Admission and Anticipated Discharge Date Admission Date: April 25, 2021 Supervising Physician Co-Signing Physician Notes Patient is seen and examined at bedside. Patient unable to provide any history due to decreased consciousness. Discussed with patient's family at bedside. No distress on exam. Currently on comfort measures only. Palliative care following. On exam patient is thin, frail, chronically appearing, normocephalic atraumatic, EOMI, alert, awake, decreased breath sounds, clear to auscultation, S1-S2, no murmur, no pedal edema, abdomen soft, nontender, normal bowel sounds, unable to perform complete neurological exam. Acute on chronic respiratory failure with hypoxia, hypercapnia secondary to COPD exacerbation. Acute metabolic encephalopathy. Currently on comfort measures only. Family agrees with current management. Appreciate Palliative care Input. Planned for reassess for GIP tomorrow. I personally reviewed the record. Patient is interviewed and examined at bedside. Patient's care is coordinated with Isela Paige CHAIN SALES CONSULTANT. Please refer to the documentation above for details of patient's presentation and for discussion of other issues. Subjective Follow-up for acute on chronic hypoxic and hypercapnic respiratory failure, End- stage COPD. On comfort care. Patient seen, at bedside. Patient resting comfortably, in no acute distress. Recently received morphine. Physical Exam Physical Exam: Patient resting in bed comfortably, does not appear to be in any distress. Awakens to verbal stimuli however confused.
--- NOTE | 2021-04-27 14:38 | Palliative Care Progress Note ---
Date of Service April 27, 2021 Assessment & Plan (1) Palliative care encounter: Plan: Reed remains on comfort measures. I discussed his care at length with his , Loretta, at the bedside. Unfortunately, he has had increasing restlessness requiring his Ativan to be routinely scheduled. I talked about what Loretta's goals would be at this time for Reed. Of course, keeping him comfortable. I talked about if she had a goal for him to return home. She said she is uncertain about that since he is so restless. We discussed GIP and its benefits on establishing hospice relationship while here in the hospital. I did discuss the above with Nisha in Case management and she is going to talk to Loretta about hospice arrangements. See below for symptom management recommendations. As mentioned previously, his overall condition has been more challenging to manage at home with worsening confusion, increased falls and finding him waking in the night and wondering. We discussed that our goal is to have him be more comfortable and then reassess the possibility of returning home with hospice support. For now, continue comfort measures overnight per request and reassess for GIP tomorrow. Discussed the above with case management and Isela CORTES. Palliative will follow. (2) Agitation: Plan: Patient with intermittent agitation. Responds well to Ativan PRN, but now scheduling Q3. May need an Ativan gtt if unable to achieve less restless state. Zyprexa 5mg ODT Q8 PRN for additional agitation. (3) Altered mental status: Plan: Pt increasingly confused. He is unable to tell me where he is or any of his family members names. Per discussion with his , Loretta, he has been worsening moreso over the past 6-8 months more rapidly. She described finding him in the middle of the night, confused and huddled in a corner naked. (4) Hypoxia: (5) Acute on chronic respiratory failure with hypoxia and hypercapnia: Admission and Anticipated Discharge Date Admission Date: April 25, 2021 Subjective Pt remains on comfort measures. Follow-up for acute on chronic hypoxic and hypercapnic respiratory failure, End-stage COPD. Patient with increasing restlessness. , Loretta at the bedside. See A/P for further details. Review of Systems Review of Systems: [place] System Assessment Scale: Pain: 1/3 by observation Anxiety: 1/3 by observation Shortness of breath: 2/3 by observation Palliative Performance Scale: 30% Physical Exam Constitutional: + ill appearing, + frail appearing and + disheveled ENMT: Mouth: + dry oral mucous membranes Respiratory: + labored breathing, + uses accessory muscles and + cough Cardiovascular: Rate/Rhythm: regular rate and regular rhythm Heart Sounds: normal S1 and normal S2 Extremities: + abnormal capillary refill and no edema Gastrointestinal (Abdomen): Inspection/Auscultation: abdomen normal to inspection Percussion/Palpation: abdomen soft Psychiatric: Orientation: alert Insight: + poor insight Judgement: + poor judgement PG Care Time/CCT Total # of Minutes Spent Total Time Spent with Patient: Total time spent is greater than 50% in coordination of care (as documented) at patient's floor/unit and/or counseling patient: 35 minutes with > 50% of that time spent assessing the patient, discussing symptom management needs, and collaborating with IDT Coding Level of Care Code 12465 Subseq Hosp Care Lvl 3 Diagnoses Palliative care encounter Z51.5 Agitation R45.1 Altered mental status R41.82 Hypoxia R09.02 Acute on chronic respiratory failure with hypoxia and hypercapnia J96.21; J96.22 Time Spent (min) 35
[2021-04-28] MEDS: LORazepam 1 MG/2 ML VIAL IV SCH ×4 (00:02→09:13)
[2021-04-28] MEDS: LORazepam 1 MG TAB SL SCH ×4 (12:24→23:24)
--- NOTE | 2021-04-28 12:44 | Palliative Care Progress Note ---
Date of Service April 28, 2021 Assessment & Plan (1) Chronic pain: Plan: He does have chronic pain and is now essentially bedbound with immobility likely increasing his pain. Agitated behavior may be at least in part pain related. Will start routine roxanol dosing. (2) Dyspnea: Plan: On O2 for comfort at this time. Dyspnea relief should improve with routine opioid dosing. (3) Altered mental status: Plan: He is currently on IV lorazepam routinely. His asked about taking him home today. In anticipation of possible discharge, will rotate to SL lorazepam routine dosing. Also discussed with RN about using prn olanzipine for agitation in addition to lorazepam. (4) Palliative care encounter: Plan: Talked with his , Loretta, at bedside. He would like to take him home with hospice care. We discussed hospice benefit and support available. She is making room for a hospital bed in their bedroom so that she can sleep nearby. She did mention calling 911 if he had shortness of breath or got agitated. We reviewed calling hospice first to help with symptom management and hopefully be able to allow him to remain at home until his . Discussed with case management. (5) End stage COPD: (6) Acute on chronic respiratory failure with hypoxia and hypercapnia: Admission and Anticipated Discharge Date Admission Date: April 25, 2021 Subjective Lethargic but responds to questions. Variable confusion. Per RN he had been trying to climb out of bed earlier this morning. He tells me that he has pain in his ankles. His is at bedside and reports that he has been complaining of pain. No prn morphine. He also tells me that his breathing is uncomfortable. Review of Systems Review of Systems: [place] Symptom Assessment Scale Pain 1/3 Dyspnea 1/3 Fatigue 2/3 Drowsiness 1/3 Palliative Performance Score 30% Physical Exam Constitutional: + ill appearing; no acute distress Respiratory: + uses accessory muscles Gastrointestinal (Abdomen): nontender Musculoskeletal: Extremities: + muscle atrophy Skin: warm and dry Neurologic: + confused agitated delirium at times PG Care Time/CCT Total # of Minutes Spent Total Time Spent: 40 Total Time Spent with Patient: Total time spent is greater than 50% in coordination of care (as documented) at patient's floor/unit and/or counseling patient: symptom management, hospice, what to expect, coordination of care Coding Level of Care Code 84563 Subseq Hosp Care Lvl 3 Diagnoses Chronic pain G89.29 Dyspnea R06.00 Altered mental status R41.82 Palliative care encounter Z51.5 End stage COPD J44.9 Acute on chronic respiratory failure with hypoxia and hypercapnia J96.21; J96.22
--- NOTE | 2021-04-28 13:21 | Hospitalist Progress Note ---
Date of Service April 28, 2021 Assessment & Plan (1) Comfort measures only status: (2) Acute on chronic respiratory failure with hypoxia and hypercapnia: (3) Acute metabolic encephalopathy: (4) End stage COPD: Plan: -Patient presented from home for evaluation of altered mental status -In the ED, VBG shows pH 7.19, PCO2 148. Patient confused, agitated at times, attempting to remove medical devices. -Per , patient is noncompliant with oxygen at times and rarely uses BiPAP at home. Acute on chronic hypoxia and hypercapnia likely secondary to noncompliance. -Patient transitioned to comfort care on 04/26 -Palliative care following -Scheduled Roxanol and SL Ativan started today in anticipation of home with hospice tomorrow (5) Bipolar disorder: Plan: -Agitation/confusion likely secondary to hypercapnia -Routine home medications discontinued in the setting of comfort measures -Scheduled Ativan and olanzapine 5 mg q8h PRN ordered by palliative care team (6) H/O: CVA (cerebrovascular accident): Plan: -ASA discontinued in the setting of comfort measures (7) Severe protein-calorie malnutrition: Plan: -BMI 15.9 (8) DVT prophylaxis: Plan: -Deferred due to comfort measures Admission and Anticipated Discharge Date Admission Date: April 25, 2021 Supervising Physician Co-Signing Physician Notes I have seen and examined the patient and have discussed the case with the provider above. I agree with the assessment and plan as stated. 61 yo M with end stage COPD on palliative measures. Palliative care team is following and have him on PRN antipsychotics and antianxiety medications. Cont palliative measures. Physical exam reveals cachectic man in NAD. Diminished breath sounds on auscultation, no increased respiratory distress, nontender, nondistended abdomen. No acute distress. Hypersomnolent. Cont current care plan. DO Rito Subjective Follow-up for acute on chronic hypoxic and hypercapnic respiratory failure, End- stage COPD. Patient seen and examined. Resting in bed, appears comfortable. Awakens to verbal stimuli, confused. Review of Systems Review of Systems: ROS could not be obtained as patient is somnolent. Physical Exam Constitutional: no acute distress Resting in bed, sleeping Respiratory: normal respiratory effort; no respiratory distress Auscultation: + diminished lung sounds Cardiovascular: Rate/Rhythm: regular rate and regular rhythm Vessels: normal peripheral pulses Extremities: no edema Neurologic: + confused; + not awake (Sleeping however arouses easily to verbal stimuli)
[2021-04-28] MEDS: MoRPHine SULFATE 5 MG/0.25 ML UDP SL PRN (13:43)
[2021-04-28] MEDS: OLANZapine ZYDIS 5 MG ORALLY DIS. TAB PO PRN (13:56)
[2021-04-28] MEDS: MoRPHine SULFATE 4 MG/ML 1 ML CARP\\VIAL IV PRN (16:05)
[2021-04-29] MEDS: MoRPHine SULFATE 5 MG/0.25 ML UDP SL PRN (03:04)
[2021-04-29] MEDS: LORazepam 1 MG TAB SL SCH ×6 (03:41→23:59)
[2021-04-29] MEDS: OLANZapine ZYDIS 5 MG ORALLY DIS. TAB PO PRN (05:12)
[2021-04-29] MEDS: MoRPHine SULFATE 4 MG/ML 1 ML CARP\\VIAL IV PRN ×2 (07:37→12:31)
[2021-04-29] MEDS ORDERED: MoRPHine SULFATE 10 MG/0.5 ML UDP SL PRN (08:48)
[2021-04-29] MEDS: MoRPHine SULFATE 10 MG/0.5 ML UDP SL SCH ×3 (10:25→21:48)
--- NOTE | 2021-04-29 13:41 | Palliative Care Progress Note ---
Date of Service April 29, 2021 Assessment & Plan (1) Chronic pain: Plan: Add routine morphine for relief of pain and dyspnea as he is not clearly articulating symptom needs at this time. He does have history of chronic pain and has been complaining of pain at various times, since admission. This may be a contributor to his delirium. (2) Agitation: Plan: Continue routine lorazepam. He has prn zyprexa as well. May need more regular dosing of zyprexa if symptoms persist. (3) Palliative care encounter: Plan: I talked with his , Loretta, on the phone. Her hope is to have him at home on hospice for his remaining days. She is expecting hospital bed set up today with original plan for discharge today. Given uncontrolled symptoms of agitated delirium, we will postpone discharge for now and monitor with medication changes. I did speak with Loretta about the sedating effects of medications for symptom management and possibility that he may be pretty much sedated in order to relieve his symptoms and keep him safe from self harm. She understands and is agreeable to this. Discussed with RN and case management. (4) Acute on chronic respiratory failure with hypoxia and hypercapnia: (5) End stage COPD: Admission and Anticipated Discharge Date Admission Date: April 25, 2021 Subjective Gavin is alternately lethargic and agitated. Yesterday he left his room and was found in the stairwell. He is currently somnolent but arouses briefly and tries to get out of bed. He has had prn IV morphine and zyprexa, in addition to routine lorazepam. Review of Systems Review of Systems: Unobtainable due to cognitive status and Unobtainable due to reduced consciousness [place] Symptom Assessment Scale Pain by observation 0/3 Dyspnea by observation 0/3 Delirium 1/3 Drowsiness 2/3 Palliative Performance Score 50% Physical Exam Constitutional: + ill appearing and + thin Respiratory: normal respiratory effort; no labored breathing no audible rhonchi Cardiovascular: Rate/Rhythm: regular rate and regular rhythm Gastrointestinal (Abdomen): nondistended, nontender Musculoskeletal: Extremities: + muscle atrophy Neurologic: Speech / Cognition: + abnormal cognition PG Care Time/CCT Total # of Minutes Spent Total Time Spent: 38 Total Time Spent with Patient: Total time spent is greater than 50% in coordination of care (as documented) at patient's floor/unit and/or counseling patient: symptom management, family education and support, coordination of care Coding Level of Care Code 35173 Subseq Hosp Care Lvl 3 Diagnoses Chronic pain G89.29 Agitation R45.1 Acute on chronic respiratory failure with hypoxia and hypercapnia J96.21; J96.22 End stage COPD J44.9 Palliative care encounter Z51.5
--- NOTE | 2021-04-29 16:07 | Hospitalist Progress Note ---
Date of Service April 29, 2021 Assessment & Plan (1) Comfort measures only status: (2) Acute on chronic respiratory failure with hypoxia and hypercapnia: (3) Acute metabolic encephalopathy: (4) End stage COPD: Plan: Patient presented from home for evaluation of altered mental status In the ED, VBG shows pH 7.19, PCO2 148. Patient confused, agitated at times, attempting to remove medical devices. Per , patient is noncompliant with oxygen at times and rarely uses BiPAP at home. Acute on chronic hypoxia and hypercapnia likely secondary to noncompliance. Patient transitioned to comfort care on 04/26 Palliative care following * Continue Roxanol and SL Ativan, added routine morphine for pain relief and dyspnea as he is not clearly articulating symptom needs at this time * PRN zyprexa for agitation. May need more regular dosing if symptoms persist Loretta has been hoping patient can return home on hospice but due to continued symptoms of agitated delirium, Dr. Connolly of palliative care feels it is best to postpone discharge for now and monitor medication change. understands. (5) Bipolar disorder: Plan: Agitation/confusion likely secondary to hypercapnia Routine home medications discontinued in the setting of comfort measures Scheduled Ativan and olanzapine 5 mg q8h PRN ordered by palliative care team, PRN Zyprexa (6) H/O: CVA (cerebrovascular accident): Plan: ASA discontinued in the setting of comfort measures (7) Severe protein-calorie malnutrition: Plan: BMI 15.9 (8) DVT prophylaxis: Plan: Deferred due to comfort measures Patient seen in collaboration with Dr. Veras. Please see addendum. Admission and Anticipated Discharge Date Admission Date: April 25, 2021 Supervising Physician Co-Signing Physician Notes I have seen and examined the patient and have discussed the case with the provider above. I agree with the assessment and plan as stated. 61 yo M with end stage COPD on palliative measures. Palliative care team is following and have him on more of a scheduled regimen of antipsychotics and antianxiety medications. Agitation in the morning per nursing staff but since the afternoon he appears much more calm and comfortable. ROS unobtainable as patient is sleeping and somnolent. He is cachectic with diminished breath sounds on auscultation, no increased respiratory distress, nontender, nondistended abdomen. No acute distress. Hypersomnolent. Cont current care plan. DO Rito Subjective Patient was alternately lethargic and agitated overnight. Yesterday he left his room and was found in the stairwell. He is currently somnolent but arouses briefly and tries to get out of bed. He has had prn IV morphine and zyprexa, in addition to routine lorazepam. Morphine was added to regimen. Review of Systems Review of Systems: ROS could not be obtained as patient is somnolent. Physical Exam Physical Exam: Gen: cachectic, NAD, somnolent, intermittent agitation HEENT: Normocephalic, atraumatic, mucous membranes moist Lung: Clear to Auscultation bilaterally, no increased work of breathing Heart: Regular rate, regular rhythm, no murmurs, rubs, or gallops Abdomen: Soft, NT, ND +BS x 4 Extremities: no edema Skin: Warm, no rash
[2021-04-29] MEDS: LORazepam 1 MG/2 ML VIAL IV PRN (19:52)
[2021-04-30] MEDS: MoRPHine SULFATE 10 MG/0.5 ML UDP SL SCH ×4 (03:21→20:09)
[2021-04-30] MEDS: LORazepam 1 MG TAB SL SCH ×6 (05:03→20:08)
[2021-04-30] MEDS: OLANZapine ZYDIS 5 MG ORALLY DIS. TAB PO PRN (06:07)
[2021-04-30] MEDS: LORazepam 1 MG/2 ML VIAL IV PRN ×3 (06:40→21:55)
--- NOTE | 2021-04-30 10:26 | Palliative Care Progress Note ---
Date of Service April 30, 2021 Assessment & Plan (1) Dyspnea: Plan: Appears to be controlled with routine morphine. (2) Chronic pain: Plan: Appears to be controlled with routine morphine. (3) Agitation: Plan: Variable. He has a history of agitated behavior in the past, particularly with hypercapnia. Will add routine dosing of zyprexa. I had an extensive talk with his , Loretta, at bedside. She has dealt with agitated behavior with Gavin in the past and feels comfortable with calming and redirecting him. We discussed a djustment of medications and the likelihood that he will be asleep most of the time, particularly with disease progression and increased CO2. She tells me that their daughter is due to deliver her first child any time now and that she very much wants Gavin to see the baby. She feels comfortable with medication adjustments and trying to take him home with hospice care tomorrow. We discussed how to give sublingual medications and she observed RN giving his medications. We also discussed being able to call hospice for support if she is having difficulty managing his symptoms at home. She would like to try for discharge home tomorrow with hospice care to follow. Discussed with case management and hospitalist. (4) Palliative care encounter: (5) Acute on chronic respiratory failure with hypoxia and hypercapnia: (6) End stage COPD: Admission and Anticipated Discharge Date Admission Date: April 25, 2021 Subjective Very agitated earlier this morning. Now deeply asleep after IV lorazepam and zyprexa. Review of Systems Review of Systems: Unobtainable due to reduced consciousness [place] Symptom Assessment Scale Pain 0/3 by observation Dyspnea 0/3 by observation Palliative Performance Score 30% Physical Exam Constitutional: + ill appearing and + cachectic ENMT: Mouth: + dry oral mucous membranes Respiratory: normal respiratory effort; no labored breathing Cardiovascular: irregular rhythm Musculoskeletal: Extremities: + muscle atrophy PG Care Time/CCT Total # of Minutes Spent Total Time Spent: 50 Total Time Spent with Patient: Total time spent is greater than 50% in coordination of care (as documented) at patient's floor/unit and/or counseling patient: symptom management, hospice, family education and support, coordination of care Coding Level of Care Code 35046 Subseq Hosp Care Lvl 3 Diagnoses Dyspnea R06.00 Chronic pain G89.29 Agitation R45.1 Palliative care encounter Z51.5 Acute on chronic respiratory failure with hypoxia and hypercapnia J96.21; J96.22 End stage COPD J44.9
[2021-04-30] MEDS ORDERED: OLANZapine ZYDIS 5 MG ORALLY DIS. TAB PO PRN (11:13)
[2021-04-30] MEDS ORDERED: MoRPHine SULFATE 10 MG/0.5 ML UDP PO PRN (11:14)
--- NOTE | 2021-04-30 12:25 | Hospitalist Progress Note ---
Date of Service April 30, 2021 Assessment & Plan (1) Comfort measures only status: (2) Acute on chronic respiratory failure with hypoxia and hypercapnia: (3) Acute metabolic encephalopathy: (4) End stage COPD: Plan: Patient presented from home for evaluation of altered mental status In the ED, VBG shows pH 7.19, PCO2 148. Patient confused, agitated at times, attempting to remove medical devices. Per , patient is noncompliant with oxygen at times and rarely uses BiPAP at home. Acute on chronic hypoxia and hypercapnia likely secondary to noncompliance. Patient transitioned to comfort care on 04/26 Palliative care following - appreciate input * Continue Roxanol and SL Ativan * Scheduled Zyprexa 5mg ODT BID with 2 additional PRN doses per [address] Connolly discussed with that adjustment of medications and the likelihood that he will be asleep most of the time, particularly with disease progression and increased CO2 Plan to return home with [facility] hospice tomorrow. Transport set up for tomorrow morning Also started on nicotine patch (5) Bipolar disorder: Plan: Agitation/confusion likely secondary to hypercapnia Routine home medications discontinued in the setting of comfort measures Scheduled Ativan and Zyprexa ordered by palliative care team, PRN Zyprexa (6) H/O: CVA (cerebrovascular accident): Plan: ASA discontinued in the setting of comfort measures (7) Severe protein-calorie malnutrition: Plan: BMI 15.9 (8) DVT prophylaxis: Plan: Deferred due to comfort measures Patient seen in collaboration with Dr. Veras. Please see addendum. Admission and Anticipated Discharge Date Admission Date: April 25, 2021 Supervising Physician Co-Signing Physician Notes I have seen and examined the patient and have discussed the case with the provider above. I agree with the assessment and plan as stated. Cont palliative care plan. Appreciate Dr. Connolly adjustment of medications to achieve max comfort for patient. Continues to require one to one observation for periods of severe agitation. Rito, DO Subjective Very agitated earlier this morning and received Zyprexa with improvement. at bedside. Discussed plan with Dr. Connolly as well. Patient intermittently agitated but can be redirected. Plan for discharge home tomorrow with [facility] hospice. Unable to obtain ROS due to somnolence. Review of Systems Review of Systems: ROS could not be obtained as patient is somnolent. Physical Exam Physical Exam: Gen: cachectic, NAD, somnolent, intermittent agitation HEENT: Normocephalic, atraumatic, mucous membranes moist Lung: Clear to Auscultation bilaterally, no increased work of breathing Heart: Regular rate, regular rhythm, no murmurs, rubs, or gallops Abdomen: Soft, NT, ND +BS x 4 Extremities: no edema Skin: Warm, no rash Results & Data Results & Data ([facility]) Medications Administered Current Inpatient Medications Glycopyrrolate (Glycopyrrolate 0.2 Mg/Ml Vial) 0.2 mg IV Q4H PRN PRN Reason: Secretions or Pulm Congestion Stop: 05/26/21 01:39 Lorazepam (Ativan) 1 mg in 2 mls @ 2 mls/min IV Q3H PRN PRN Reason: Agitation Stop: 05/28/21 16:41 Last Admin: 05/01/21 10:11 Dose: 2 mls/min Documented by: Lorazepam (Lorazepam 1 Mg Tab) 1 mg SL Q4 LINDA Stop: 05/28/21 11:59 Last Admin: 05/01/21 09:55 Dose: 1 mg Documented by: Miscellaneous (Remove Nicoderm Patch) 1 ea N/A DAILY@[id number] LINDA Stop: 05/31/21 16:44 Morphine Sulfate (Morphine Sulfate 4 Mg/Ml 1 Ml Carp\Vial) 4 mg IV Q1H PRN PRN Reason: Pain Stop: 05/10/21 01:39 Last Admin: 04/29/21 12:31 Dose: 4 mg Documented by: Morphine Sulfate (Morphine Sulfate 10 Mg/0.5 Ml Udp) 10 mg SL Q6H LINDA Stop: 05/13/21 08:59 Last Admin: 05/01/21 08:58 Dose: 10 mg Documented by: Morphine Sulfate (Morphine Sulfate 10 Mg/0.5 Ml Udp) 10 mg PO Q2H PRN PRN Reason: Pain or dyspnea Stop: 05/14/21 11:13 Nicotine (Nicotine 21 Mg/24 Hr Tdsy) 21 mg TD QAM LINDA Stop: 05/30/21 16:44 Last Admin: 04/30/21 17:32 Dose: 21 mg Documented by: Olanzapine (Olanzapine Zydis 5 Mg Orally Dis. Tab) 5 mg PO Q6H PRN PRN Reason: Agitation Stop: 05/26/21 10:44 Olanzapine (Olanzapine Zydis 5 Mg Orally Dis. Tab) 5 mg PO BID [facility] Stop: 05/30/21 20:59 Last Admin: 05/01/21 10:16 Dose: 5 mg Documented by: Ondansetron HCl (Ondansetron Inj 2 Mg/Ml 2 Ml Vial) 4 mg IV Q4H PRN PRN Reason: Nausea &/or Vomiting Stop: 05/26/21 01:39
[2021-04-30] MEDS: NICOTINE 21 MG/24 HR TDSY TD SCH (17:32)
[2021-04-30] MEDS: OLANZapine ZYDIS 5 MG ORALLY DIS. TAB PO SCH (20:29)
[2021-05-01] MEDS: LORazepam 1 MG TAB SL SCH ×7 (03:08→22:55)
[2021-05-01] MEDS: MoRPHine SULFATE 10 MG/0.5 ML UDP SL SCH ×4 (05:46→21:58)
[2021-05-01 06:30] VITALS: BP 129/74; TEMP 97.9; O2SAT 95
[2021-05-01] MEDS: OLANZapine ZYDIS 5 MG ORALLY DIS. TAB PO SCH ×3 (08:50→21:58)
--- NOTE | 2021-05-01 09:12 | Discharge Summary ---
Date of Service May 01, 2021 Admission HPI Per Admitting Provider 61-year-old male with PMH end-stage oxygen dependent COPD, bipolar disorder, chronic pain, and other problems listed below who presents to the ED for evaluation of altered mental status. History is unobtainable from the patient. I spoke to the patient's on the telephone who provided the history. She reports that this morning around 6 AM, patient was talking to himself and not making any sense. observed that patient was off his oxygen. Oxygen was put back on the patient however symptoms not improved. reports that the patient has been having increasing episodes of incontinence over the past week. She also notes episodes of hallucinations. This morning, patient appeared to be generally weak and stumbling when trying to walk. He was also dropping things. Patient is to wear 4 L of oxygen at all times however reports that he frequently takes it off. He is also to wear BiPAP at night however very rarely uses it. In the ED, patient is confused and attempting to crawl out of bed. He took his oxygen off once and desaturated into the 40s. Patient was placed on BiPAP. VBG suggests a respiratory acidosis with pH 7.19, PCO2 148. Other labs unremarkable. CXR negative for acute cardiopulmonary findings. Patient was given nebulizer treatment and IV dexamethasone 10 mg. Admission Exam Per Admitting Provider Constitutional: + cachectic Bitemporal wasting, vitals as above Eyes: PERRL, conjunctivae normal, anicteric sclerae ENMT: external ear and nose normal, oropharynx normal Respiratory: normal respiratory effort; no respiratory distress Auscultation: + diminished lung sounds On BiPAP Cardiovascular: Rate/Rhythm: regular rate and regular rhythm Vessels: normal peripheral pulses Extremities: no edema Gastrointestinal (Abdomen): normal bowel sounds, soft, nontender, no hepatosplenomegaly Musculoskeletal: Extremities: no cyanosis and no clubbing Patient not fol lowing commands to accurately assess strength however appears to be moving all extremities Skin: no rashes, warm and dry Neurologic: PERRL, EOMI, accommodation nl, no face palsy, no dysarthria Psychiatric: Orientation: alert and oriented to person; + not oriented to place, + not oriented to time and + uncooperative (Restless, frequently attempting to move medical devices) Principal Diagnosis Dyspnea Chronic pain Agitation Acute on chronic respiratory failure with hypoxia and hypercapnia End-stage COPD Discharge Data Allergies Allergy/AdvReac Type Severity Reaction Status Date / Time No Known Allergies Allergy Verified 04/13/21 10:55 Consultations 04/25/21 12:37 ED Decision to Admit Stat 04/25/21 12:45 Consult Palliative Care Routine Ordered Studies Laboratory Results WBC 8.33 K/uL (4.8-10.8) 04/25/21 11:13 RBC 4.36 M/uL (4.7-6.1) L 04/25/21 11:13 Hgb 12.9 g/dL (14.0-18.0) L 04/25/21 11:13 Hct 44.4 % (42-52) 04/25/21 11:13 MCV 101.8 fL (80-100) H 04/25/21 11:13 MCH 29.6 pg (25-34) 04/25/21 11:13 MCHC 29.1 g/dL (32-36) L 04/25/21 11:13 RDW Std Deviation 49.9 fL (36.4-46.3) H 04/25/21 11:13 RDW Coeff of Mani 13.2 % (11.5-14.5) 04/25/21 11:13 Plt Count 162 K/uL (130-400) 04/25/21 11:13 MPV 11.0 fL (7.4-10.4) H 04/25/21 11:13 Immature Gran % (Auto) 0.2 % 04/25/21 11:13 Neut % (Auto) 80.5 % 04/25/21 11:13 Lymph % (Auto) 9.5 % 04/25/21 11:13 [place] % (Auto) 9.5 % 04/25/21 11:13 Eos % (Auto) 0.1 % 04/25/21 11:13 Baso % (Auto) 0.2 % 04/25/21 11:13 Neut # (Auto) 6.70 K/uL (1.4-6.5) H 04/25/21 11:13 Lymph # (Auto) 0.79 K/uL (1.2-3.4) L 04/25/21 11:13 [place] # (Auto) 0.79 K/uL (0.11-0.59) H 04/25/21 11:13 Eos # (Auto) 0.01 K/uL (0-0.5) 04/25/21 11:13 Baso # (Auto) 0.02 K/uL (0-0.2) 04/25/21 11:13 Immature Gran # (Auto) 0.02 K/uL (0.00-0.02) 04/25/21 11:13 PT 10.2 Seconds (9.0-12.0) 04/25/21 11:13 INR 1.0 (0.9-1.1) 04/25/21 11:13 APTT 23.9 Seconds (21.0-31.0) 04/25/21 11:13 PTT Ratio 0.9 04/25/21 11:13 D-Dimer 260 ug/L FEU (0-500) 04/25/21 11:13 ABG pH 7.39 (7.35-7.45) 04/25/21 20:33 ABG pCO2 79 mmHg (35-46) H 04/25/21 20:33 ABG pO2 67 mmHg (80-95) L 04/25/21 20:33 ABG HCO3 47 mmol/L (19-24) H 04/25/21 20:33 ABG O2 Saturation 93.5 % (90-95) 04/25/21 20:33 ABG Base Excess 18.3 mEq/L (-9-1.8) H 04/25/21 20:33 [place] Test Pos (Pos) 04/25/21 20:33 VBG pH 7.19 (7.36-7.41) L 04/25/21 11:13 VBG pCO2 148 mmHg (38-50) H 04/25/21 11:13 VBG pO2 26 mmHg 04/25/21 11:13 VBG HCO3 55 mmol/L 04/25/21 11:13 VBG O2 Saturation < 60.0 % 04/25/21 11:13 VBG Base Excess 19.7 mEq/L 04/25/21 11:13 Barometric Pressure 736.1 mm/Hg 04/25/21 20:33 Oxygen Given 4L 04/25/21 20:33 Sodium 139 mmol/L (136-145) 04/25/21 11:13 Potassium 4.4 mmol/L (3.5-5.1) 04/25/21 11:13 Chloride 90 mmol/L (98-107) L 04/25/21 11:13 Carbon Dioxide 53 mmol/L (21-32) H* 04/25/21 11:13 Anion Gap -5.0 (3-11) L 04/25/21 11:13 BUN 24 mg/dl (7-18) H 04/25/21 11:13 Creatinine 0.94 mg/dl (0.6-1.4) 04/25/21 11:13 Est Cr Clr Drug Dosing 61.4 ml/min 04/25/21 11:13 Est GFR ( Amer) 100.3 ml/min 04/25/21 11:13 Est GFR (Non-Af Amer) 86.5 ml/min 04/25/21 11:13 BUN/Creatinine Ratio 25.7 (10-20) H 04/25/21 11:13 Glucose 106 mg/dl (70-99) H 04/25/21 11:13 Calcium 9.7 mg/dl (8.5-10.1) 04/25/21 11:13 Magnesium 2.4 mg/dl (1.8-2.4) 04/25/21 11:13 Total Bilirubin 0.5 mg/dl (0.2-1) 04/25/21 11:13 AST 18 U/L (15-37) 04/25/21 11:13 ALT 19 U/L (12-78) 04/25/21 11:13 Alkaline Phosphatase 86 U/L (45-117) 04/25/21 11:13 Ammonia 18.0 umol/L (11-32) 04/25/21 11:13 Total Creatine Kinase 54 U/L (39-308) 04/25/21 11:13 Troponin I < 0.015 ng/ml (0-0.045) 04/25/21 11:13 Total Protein 8.3 gm/dl (6.4-8.2) H 04/25/21 11:13 Albumin 3.7 gm/dl (3.4-5.0) 04/25/21 11:13 Globulin 4.6 gm/dl (2.5-4.0) H 04/25/21 11:13 Albumin/Globulin Ratio 0.8 (0.9-2) L 04/25/21 11:13 Procalcitonin 0.11 ng/ml (0-0.5) 04/25/21 11:25 TSH 0.598 uIu/ml (0.300-4.500) 04/25/21 11:13 Ethyl Alcohol mg/dL < 3.0 mg/dl (0-3) 04/25/21 11:13 COVID-19 Eval Order Covid19 at [facility] 04/25/21 12:49 SARS-CoV-2 (PCR) NEGATIVE (Negative) 04/25/21 12:49 Impressions Chest X-Ray 04/25/21 10:54 XR chest 1V portable CLINICAL HISTORY: weakness COMPARISON STUDY: Chest radiograph April 15, 2021. FINDINGS: Postoperative findings within the cervical spine are incidentally noted. Emphysema is noted. There are old bilateral rib fractures. Cardiac size is normal. Mediastinal contours are normal. There is no pneumothorax or pleural effusion. IMPRESSION: No acute cardiopulmonary findings. Emphysema. ACT 112: Negative or not required by law. Electronically signed by: Daniel Gaitan M.D. 04/25/2021 12:17 PM Hospital Course (1) Comfort measures only status: (2) Acute on chronic respiratory failure with hypoxia and hypercapnia: (3) Acute metabolic encephalopathy: (4) End stage COPD: Patient presented from home for evaluation of altered mental status In the ED, VBG shows pH 7.19, PCO2 148. Patient confused, agitated at times, attempting to remove medical devices. Per , patient is noncompliant with oxygen at times and rarely uses BiPAP at home. Acute on chronic hypoxia and hypercapnia likely secondary to noncompliance. Patient transitioned to comfort care on 04/26 Palliative care following - appreciate input * Continue Roxanol and SL Ativan * Scheduled Zyprexa 5mg ODT BID with 2 additional PRN doses per [address] Connolly discussed with that adjustment of medications and the likelihood that he will be asleep most of the time, particularly with disease progression and increased CO2 Plan to return home with [facility] hospice tomorrow. Transport set up for tomorrow morning Also started on nicotine patch (5) Bipolar disorder: Agitation/confusion likely secondary to hypercapnia Routine home medications discontinued in the setting of comfort measures Scheduled Ativan and Zyprexa ordered by palliative care team, PRN Zyprexa (6) H/O: CVA (cerebrovascular accident): ASA discontinued in the setting of comfort measures (7) Severe protein-calorie malnutrition: BMI 15.9 (8) DVT prophylaxis: Deferred due to comfort measures Patient seen in collaboration with Dr. Veras. Please see addendum. Total Time Total Time Spent Total Time Spent (In Minutes): 60 Discharge Plan Discharge Items Patient Disposition: Hospice - Home Reason For Visit: COPD EXACERBATION, RESP FAILURE Discharge Diagnosis: Dyspnea Chronic pain Agitation Acute on chronic respiratory failure with hypoxia and hypercapnia End-stage COPD Activity: Resume your previous activity Non-emergency contact: Primary Care Provider Call non-emergency contact if: you have any medication questions, your symptoms worsen, your pain is not controlled, your pain is worsening, your pain is unusual for you and your pain is concerning for you Follow-up/Referrals: Chris Diaz DO [Primary Care Provider] - Diet: Regular Addtl Attending Provider Instructions: Please contact your hospice agency for additional needs with medications or other palliative care medications. Your primary care physician is another resource at this point for care in the home. It was a pleasure taking care of you! Please call if you have any questions or problems. You can reach a [facility] hospitalist on duty at [facility] 24 hours a day by calling [phone]. Take care of yourself. Nisha Veras DO [facility] Hospitalist Pending Studies at Discharge: No Stand-Alone Forms: My [facility] Medications and DC Order Prescriptions: New olanzapine 5 mg Tablet,Disintegrating 5 mg PO BID Qty: 30 RF: 0 morphine concentrate 100 mg/5 mL (20 mg/mL) Solution 10 mg sublingual Q6H Qty: 15 RF: 0 lorazepam 1 mg Tablet 1 mg sublingual Q4 Qty: 30 RF: 0 Continued nicotine 21 mg/24 hr patch 24 hour 21 mg topical DAILY RF: 0 Discontinued aspirin [Aspirin Low Dose] 81 mg Tablet,Delayed Release (Dr/Ec) 81 mg PO DAILY RF: 0 albuterol sulfate [Ventolin HFA] 90 mcg/actuation HFA aerosol inhaler 2 puff INHALATION Q4H PRN (Reason: Shortness Of Breath Or Wheezing) RF: 0 mirtazapine 45 mg tablet 45 mg PO HS RF: 0 sertraline [Zoloft] 100 mg tablet 200 mg PO HS RF: 0 clonazepam 1 mg tablet 1 mg PO TID RF: 0 ipratropium-albuterol 0.5 mg-3 mg(2.5 mg base)/3 mL solution for nebulization 3 ml inhalation Q4H PRN (Reason: Shortness Of Breath Or Wheezing) RF: 0 tizanidine [Zanaflex] 4 mg tablet 2 mg PO Q6H PRN (Reason: Muscle Spasm) RF: 0 olanzapine 2.5 mg tablet 2.5 mg PO HS RF: 0 Trelegy Ellipta 100-62.5-25 mcg blister with device 1 inh INHALATION DAILY RF: 0 Admission Data Admit Date/Time: 04/25/21 12:12 Attending Provider: Nisha Veras Admit Provider: Jorge L Almodovar Primary Care Provider: Chris Diaz Other Providers: Jorge L Almodovar ; Cherelle Connolly ; [facility]
[2021-05-01] MEDS: LORazepam 1 MG/2 ML VIAL IV PRN (10:11)
[2021-05-01] MEDS: NICOTINE 21 MG/24 HR TDSY TD SCH (15:14)
[2021-05-02] MEDS: LORazepam 1 MG/2 ML VIAL IV PRN ×2 (00:21→21:13)
[2021-05-02] MEDS: MoRPHine SULFATE 10 MG/0.5 ML UDP SL SCH ×4 (03:02→20:55)
[2021-05-02] MEDS: LORazepam 1 MG TAB SL SCH ×5 (04:54→19:23)
[2021-05-02] MEDS: OLANZapine ZYDIS 5 MG ORALLY DIS. TAB PO SCH ×2 (08:36→20:55)
[2021-05-02] MEDS: NICOTINE 21 MG/24 HR TDSY TD SCH (08:36)
--- NOTE | 2021-05-02 09:59 | Hospitalist Progress Note ---
Date of Service May 01, 2021 Assessment & Plan (1) Comfort measures only status: (2) Acute on chronic respiratory failure with hypoxia and hypercapnia: (3) Acute metabolic encephalopathy: (4) End stage COPD: (5) Bipolar disorder: (6) H/O: CVA (cerebrovascular accident): (7) Severe protein-calorie malnutrition: Plan: transitioned to comfort care on 04/26. Continues on scheduled palliative medications. Intermittent noncompliance 2/2 agitation that is severe. He is combative this morning. Transport cancelled after discussion regarding realistic needs of the patient, which she will currently be unable to provide. Will continue current palliative medications and adjust per palliative team recommendations and as needed. Cont oxygen supplementation for comfort. One to one required. Nisha Veras DO [place] Hospitalist Admission and Anticipated Discharge Date Admission Date: April 25, 2021 Subjective Very agitated this morning, combative with staff, screaming profanity. Initially refused to take PO antipsychotic but then nursing convinced him and he did. Discussed with by phone regarding ability to care for him at home and she agrees it would be too difficult to handle him at this point. Transfer was cancelled. Review of Systems Review of Systems: Unable to obtain ROS as patient is combative and agitated. Physical Exam Physical Exam: CONSTITUTIONAL: cachectic, in mild distress, combative. EYES: normal conjunctivae, no scleral icterus ENT: external ear and nose normal, MMM RESPIRATORY: clear to auscultation bilaterally, no crackles, rales or wheezes, normal respiratory effort CARDIOVASCULAR: tach rate and rhythm, S1 and 2 heard without murmurs, gallops or rubs, no JVD, no peripheral edema GASTROINTESTINAL: soft, nontender, ND, no guarding MUSCULOSKELETAL: moving arms and legs equally SKIN: warm and dry, multiple tattooes NEUROLOGIC: CN 2-12 grossly intact, awake combative, appears confused. PSYCHIATRIC: alert, agitated
--- NOTE | 2021-05-02 14:54 | Hospitalist Progress Note ---
Date of Service May 02, 2021 Assessment & Plan (1) Comfort measures only status: (2) Acute on chronic respiratory failure with hypoxia and hypercapnia: (3) Acute metabolic encephalopathy: (4) End stage COPD: (5) Bipolar disorder: (6) H/O: CVA (cerebrovascular accident): (7) Severe protein-calorie malnutrition: Plan: transitioned to comfort care on 04/26. Continues on scheduled palliative medications. Intermittent noncompliance 2/2 agitation that is severe. He is combative this morning but became calm later. Will continue current palliative medications and adjust per palliative team recommendations and as needed. Cont oxygen supplementation for comfort. One to one required. still planning to take him home. DO Rito Admission and Anticipated Discharge Date Admission Date: April 25, 2021 Subjective some agitation this morning, however, he was more sedated seeing him at bedside somnolent, not easily aroused from sleep normal breathing pattern at bedside, discussed logistics. Review of Systems Review of Systems: could not obtain as patient was somnolent. Physical Exam Physical Exam: CONSTITUTIONAL: cachectic, NAD EYES: normal conjunctivae, no scleral icterus ENT: external ear and nose normal, MMM RESPIRATORY: clear to auscultation bilaterally, no crackles, rales or wheezes, normal respiratory effort CARDIOVASCULAR: reg rate and rhythm, S1 and 2 heard without murmurs, gallops or rubs, no JVD, no peripheral edema GASTROINTESTINAL: soft, nontender, ND, no guarding MUSCULOSKELETAL: sleeping, cachectic SKIN: warm and dry, multiple tattooes NEUROLOGIC: could not obtain as patient was sleeping Results & Data Results & Data ([facility]) Medications Administered Current Inpatient Medications Glycopyrrolate (Glycopyrrolate 0.2 Mg/Ml Vial) 0.2 mg IV Q4H PRN PRN Reason: Secretions or Pulm Congestion Stop: 05/26/21 01:39 Lorazepam (Ativan) 1 mg in 2 mls @ 2 mls/min IV Q3H PRN PRN Reason: Agitation Stop: 05/28/21 16:41 Last Admin: 05/02/21 00:21 Dose: 2 mls/min Documented by: Lorazepam (Lorazepam 1 Mg Tab) 1 mg SL Q4 LINDA Stop: 05/28/21 11:59 Last Admin: 05/02/21 13:23 Dose: 1 mg Documented by: Miscellaneous (Remove Nicoderm Patch) 1 ea N/A DAILY@0859 [facility] Stop: 05/31/21 16:44 Last Admin: 05/02/21 08:36 Dose: 1 ea Documented by: Morphine Sulfate (Morphine Sulfate 4 Mg/Ml 1 Ml Carp\Vial) 4 mg IV Q1H PRN PRN Reason: Pain Stop: 05/10/21 01:39 Last Admin: 04/29/21 12:31 Dose: 4 mg Documented by: Morphine Sulfate (Morphine Sulfate 10 Mg/0.5 Ml Udp) 10 mg SL Q6H LINDA Stop: 05/13/21 08:59 Last Admin: 05/02/21 08:36 Dose: 10 mg Documented by: Morphine Sulfate (Morphine Sulfate 10 Mg/0.5 Ml Udp) 10 mg PO Q2H PRN PRN Reason: Pain or dyspnea Stop: 05/14/21 11:13 Nicotine (Nicotine 21 Mg/24 Hr Tdsy) 21 mg TD QAM [facility] Stop: 05/30/21 16:44 Last Admin: 05/02/21 08:36 Dose: 21 mg Documented by: Olanzapine (Olanzapine Zydis 5 Mg Orally Dis. Tab) 5 mg PO Q6H PRN PRN Reason: Agitation Stop: 05/26/21 10:44 Olanzapine (Olanzapine Zydis 5 Mg Orally Dis. Tab) 5 mg PO BID [facility] Stop: 05/30/21 20:59 Last Admin: 05/02/21 08:36 Dose: 5 mg Documented by: Ondansetron HCl (Ondansetron Inj 2 Mg/Ml 2 Ml Vial) 4 mg IV Q4H PRN PRN Reason: Nausea &/or Vomiting Stop: 05/26/21 01:39
[2021-05-02] MEDS: MoRPHine SULFATE 4 MG/ML 1 ML CARP\\VIAL IV PRN (22:16)
[2021-05-03] MEDS ORDERED: OLANZapine ZYDIS 5 MG ORALLY DIS. TAB PO SCH
[2021-05-03] MEDS: LORazepam 1 MG TAB SL SCH ×4 (00:17→11:33)
[2021-05-03] MEDS: MoRPHine SULFATE 4 MG/ML 1 ML CARP\\VIAL IV PRN (00:52)
[2021-05-03] MEDS: MoRPHine SULFATE 10 MG/0.5 ML UDP SL SCH ×2 (02:42→08:08)
[2021-05-03] MEDS: NICOTINE 21 MG/24 HR TDSY TD SCH (08:21)
--- NOTE | 2021-05-03 09:40 | Hospitalist Progress Note ---
Date of Service May 03, 2021 Assessment & Plan (1) Comfort measures only status: (2) Acute on chronic respiratory failure with hypoxia and hypercapnia: (3) Acute metabolic encephalopathy: (4) End stage COPD: (5) Bipolar disorder: (6) H/O: CVA (cerebrovascular accident): (7) Severe protein-calorie malnutrition: Plan: Patient transitioned to comfort care on 04/26. Continues on scheduled palliative medications including morphine and Ativan. He is calm and somnolent this morning, RN reports uneventful overnight with appropriate use of medications. Appreciate palliative care recommendations, adjust medications as needed intermittent noncompliance 2/2 agitation that is severe Continue oxygen supplementation for comfort One to one required on as needed basis We will see how patient does today, plan for to take him home Discharge canceled yesterday secondary to agitation We will discuss with case management Dispo: Home with on hospice DNR/DNI Patient was seen and examined in collaboration with Dr. Veras, please see addendum Admission and Anticipated Discharge Date Admission Date: April 25, 2021 Supervising Physician Co-Signing Physician Notes I have seen and examined the patient and have discussed the case with the provider above. I agree with the assessment and plan as stated. 61 yo M on comfort measures status with intermittent agitation and somnolence. Palliative services on board. Somnolent patient with clear lungs to auscultation and not tachycardic. Appears comfortable when on current scheduled meds. Family continuously updated. Working to get a plan for smoother transition to home hospice. DO Carolann Veras Patient was seen and examined in 303. RN at bedside. Follow-up acute on chronic respiratory failure, COPD and comfort measures only status. He is resting comfortably in bed. RN at bedside stated he had uneventful night and has been utilizing comfort measure meds including morphine and Ativan. ROS unobtainable due to somnolence. Review of Systems Review of Systems: Unobtainable due to reduced consciousness Physical Exam Physical Exam: Gen: Thin, male, NAD, somnolent and sleeping HEENT: Normocephalic, atraumatic, conjunctivae moist, sclerae anicteric, mucous membranes dry Lung: Clear to Auscultation bilaterally, no wheezes/rales/rhonchi Heart: Regular rate, regular rhythm, no murmurs, rubs, or gallops Abdomen: Soft, NT, ND +BS x 4 Extremities: No edema Skin: Positive tattoos, warm, no rash, negative turgor. Results & Data Results & Data ([facility]) Medications Administered Current Inpatient Medications Glycopyrrolate (Glycopyrrolate 0.2 Mg/Ml Vial) 0.2 mg IV Q4H PRN PRN Reason: Secretions or Pulm Congestion Stop: 05/26/21 01:39 Lorazepam (Ativan) 1 mg in 2 mls @ 2 mls/min IV Q3H PRN PRN Reason: Agitation Stop: 05/28/21 16:41 Last Admin: 05/02/21 21:13 Dose: 2 mls/min Documented by: Lorazepam (Lorazepam 1 Mg Tab) 1 mg SL Q4 LINDA Stop: 05/28/21 11:59 Last Admin: 05/03/21 08:07 Dose: 1 mg Documented by: Miscellaneous (Remove Nicoderm Patch) 1 ea N/A DAILY@0859 [facility] Stop: 05/31/21 16:44 Last Admin: 05/03/21 08:20 Dose: 1 ea Documented by: Morphine Sulfate (Morphine Sulfate 4 Mg/Ml 1 Ml Carp\Vial) 4 mg IV Q1H PRN PRN Reason: Pain Stop: 05/10/21 01:39 Last Admin: 05/03/21 00:52 Dose: 4 mg Documented by: Morphine Sulfate (Morphine Sulfate 10 Mg/0.5 Ml Udp) 10 mg SL Q6H LINDA Stop: 05/13/21 08:59 Last Admin: 05/03/21 08:08 Dose: 10 mg Documented by: Morphine Sulfate (Morphine Sulfate 10 Mg/0.5 Ml Udp) 10 mg PO Q2H PRN PRN Reason: Pain or dyspnea Stop: 05/14/21 11:13 Nicotine (Nicotine 21 Mg/24 Hr Tdsy) 21 mg TD QAM [facility] Stop: 05/30/21 16:44 Last Admin: 05/03/21 08:21 Dose: 21 mg Documented by: Olanzapine (Olanzapine Zydis 5 Mg Orally Dis. Tab) 5 mg PO Q6H PRN PRN Reason: Agitation Stop: 05/26/21 10:44 Olanzapine (Olanzapine Zydis 5 Mg Orally Dis. Tab) 5 mg PO BID [facility] Stop: 05/30/21 20:59 Last Admin: 05/02/21 20:55 Dose: 5 mg Documented by: Ondansetron HCl (Ondansetron Inj 2 Mg/Ml 2 Ml Vial) 4 mg IV Q4H PRN PRN Reason: Nausea &/or Vomiting Stop: 05/26/21 01:39
[2021-05-03] MEDS: OLANZapine ZYDIS 5 MG ORALLY DIS. TAB PO SCH (10:06)
[2021-05-03] MEDS ORDERED: MoRPHine SULFATE 10 MG/0.5 ML UDP SL SCH (12:00)
--- NOTE | 2021-05-03 12:31 | Palliative Care Progress Note ---
Date of Service May 03, 2021 Assessment & Plan (1) Dyspnea: Plan: Continue routine roxanol. Will increase frequency to every four hours. (2) Agitation: Plan: Continue routine lorazepam. Will increase zyprexa hs dose to 10mg. (3) Palliative care encounter: Plan: Talked with his about her comfort level with taking him home. She very much wants to get him home. He has not been combative with routine med administration. She is comfortable with redirecting him and has support from family as well as hospice. She feels that he will do better at home which is likely, as his symptoms are exacerbated by hospital environment. After considerable discussion with Loretta and RN, she would like to take him home today. Discussed with case management. (4) Acute on chronic respiratory failure with hypoxia and hypercapnia: (5) COPD (chronic obstructive pulmonary disease): Admission and Anticipated Discharge Date Admission Date: April 25, 2021 Subjective Had combative agitation on Monday am. Routine meds were held overnight. Still restless, trying to get up but able to redirect. asking about taking him home. He denies pain or dyspnea at this time but was complaining of shortn ess of breath earlier this morning. Review of Systems Review of Systems: [place] Symptom Assessment Scale Pain 0/3 Dyspnea 0/3 Fatigue 1/3 Drowsiness 0/3 Palliative Performance Score 50% Able to ambulate with assistance Physical Exam Constitutional: + thin and + disheveled Respiratory: normal respiratory effort; no labored breathing Cardiovascular: Extremities: no pedal edema Gastrointestinal (Abdomen): benign Musculoskeletal: Extremities: + muscle atrophy Neurologic: confused Psychiatric: Orientation: oriented to person PG Care Time/CCT Total # of Minutes Spent Total Time Spent: 40 Total Time Spent with Patient: Total time spent is greater than 50% in coordination of care (as documented) at patient's floor/unit and/or counseling patient: symptom management, coordination of care, family education and support. Coding Level of Care Code 03411 Subseq Hosp Care Lvl 3 Diagnoses Dyspnea R06.00 Agitation R45.1 Palliative care encounter Z51.5 Acute on chronic respiratory failure with hypoxia and hypercapnia J96.21; J96.22 COPD (chronic obstructive pulmonary disease) J44.9
--- NOTE | 2021-05-03 15:17 | Discharge Summary ---
Date of Service May 03, 2021 Admission HPI Per Admitting Provider 61-year-old male with PMH end-stage oxygen dependent COPD, bipolar disorder, chronic pain, and other problems listed below who presents to the ED for evaluation of altered mental status. History is unobtainable from the patient. I spoke to the patient's on the telephone who provided the history. She reports that this morning around 6 AM, patient was talking to himself and not making any sense. observed that patient was off his oxygen. Oxygen was put back on the patient however symptoms not improved. reports that the patient has been having increasing episodes of incontinence over the past week. She also notes episodes of hallucinations. This morning, patient appeared to be generally weak and stumbling when trying to walk. He was also dropping things. Patient is to wear 4 L of oxygen at all times however reports that he frequently takes it off. He is also to wear BiPAP at night however very rarely uses it. In the ED, patient is confused and attempting to crawl out of bed. He took his oxygen off once and desaturated into the 40s. Patient was placed on BiPAP. VBG suggests a respiratory acidosis with pH 7.19, PCO2 148. Other labs unremarkable. CXR negative for acute cardiopulmonary findings. Patient was given nebulizer treatment and IV dexamethasone 10 mg. Admission Exam Per Admitting Provider Physical Exam Constitutional: + cachectic Bitemporal wasting, vitals as above Eyes: PERRL, conjunctivae normal, anicteric sclerae ENMT: external ear and nose normal, oropharynx normal Respiratory: normal respiratory effort; no respiratory distress Auscultation: + diminished lung sounds On BiPAP Cardiovascular: Rate/Rhythm: regular rate and regular rhythm Vessels: normal peripheral pulses Extremities: no edema Gastrointestinal (Abdomen): normal bowel sounds, soft, nontender, no hepatosplenomegaly Musculoskeletal: Extremities: no cyanosis and no clubbing Patient not following commands to accurately assess strength however appears to be moving all extremities Skin: no rashes, warm and dry Neurologic: PERRL, EOMI, accommodation nl, no face palsy, no dysarthria Psychiatric: Orientation: alert and oriented to person; + not oriented to place, + not oriented to time and + uncooperative (Restless, frequently attempting to move medical devices) Principal Diagnosis Dyspnea Chronic pain Agitation Acute on chronic respiratory failure with hypoxia and hypercapnia End-stage COPD Discharge Exam Gen: Thin, male, NAD, somnolent and sleeping HEENT: Normocephalic, atraumatic, conjunctivae moist, sclerae anicteric, mucous membranes dry Lung: Clear to Auscultation bilaterally, no wheezes/rales/rhonchi Heart: Regular rate, regular rhythm, no murmurs, rubs, or gallops Abdomen: Soft, NT, ND +BS x 4 Extremities: No edema Skin: Positive tattoos, warm, no rash, negative turgor. Discharge Data Allergies Allergy/AdvReac Type Severity Reaction Status Date / Time No Known Allergies Allergy Verified 04/13/21 10:55 Consultations 04/25/21 12:37 ED Decision to Admit Stat 04/25/21 12:45 Consult Palliative Care Routine Ordered Studies Chest X-Ray 04/25/21 10:54 XR chest 1V portable CLINICAL HISTORY: weakness COMPARISON STUDY: Chest radiograph April 15, 2021. FINDINGS: Postoperative findings within the cervical spine are incidentally noted. Emphysema is noted. There are old bilateral rib fractures. Cardiac size is normal. Mediastinal contours are normal. There is no pneumothorax or pleural effusion. IMPRESSION: No acute cardiopulmonary findings. Emphysema. ACT 112: Negative or not required by law. Electronically signed by: Daniel Gaitan M.D. 04/25/2021 12:17 PM Abnormal Labs 04/25/21 04/25/21 04/25/21 11:13 11:13 11:13 RBC 4.36 L Hgb 12.9 L MCV 101.8 H MCHC 29.1 L RDW Std Deviation 49.9 H MPV 11.0 H Neut # (Auto) 6.70 H Lymph # (Auto) 0.79 L Morrill # (Auto) 0.79 H ABG pCO2 ABG pO2 ABG HCO3 ABG Base Excess VBG pH 7.19 L VBG pCO2 148 H Chloride 90 L Carbon Dioxide 53 H* Anion Gap -5.0 L BUN 24 H BUN/Creatinine Ratio 25.7 H Glucose 106 H Total Protein 8.3 H Globulin 4.6 H Albumin/Globulin Ratio 0.8 L 04/25/21 04/25/21 16:10 20:33 RBC Hgb MCV MCHC RDW Std Deviation MPV Neut # (Auto) Lymph # (Auto) Morrill # (Auto) ABG pCO2 79 H 79 H ABG pO2 58 L 67 L ABG HCO3 49 H 47 H ABG Base Excess 20.6 H 18.3 H VBG pH VBG pCO2 Chloride Carbon Dioxide Anion Gap BUN BUN/Creatinine Ratio Glucose Total Protein Globulin Albumin/Globulin Ratio Hospital Course (1) Comfort measures only status: (2) Acute on chronic respiratory failure with hypoxia and hypercapnia: (3) Acute metabolic encephalopathy: (4) End stage COPD: (5) Bipolar disorder: (6) H/O: CVA (cerebrovascular accident): (7) Severe protein-calorie malnutrition: Mr. Lawrence is a 61 male who was admitted on 05/05 secondary to acute on chronic respiratory failure with hypoxia and hypercapnia, acute metabolic encephalopathy in setting of end-stage COPD. Patient has been noncompliant with oxygen at times and rarely used BiPAP at home. He was initially treated with IV Solu- Medrol and empiric doxycycline. Palliative care saw and evaluated the patient and had extensive conversation with at bedside. He was transitioned to comfort care measures on 04/26 with plans to DC to home on hospice. He was seen and evaluated by hospice on a regular basis to establish appropriate medication regimen that would be appropriate to discharge to home. Unfortunately in setting of bipolar disorder and metabolic encephalopathy he did have periods of agitation. On day of discharge patient was on Ativan 1 mg sublingual every 4 hours, Zyprexa 5 mg in the morning and 10 mg at bedtime and 10 mg every 4 hours. At time of discharge patient was sedated but vital signs were stable and he was comfortable. He was stable to be transported to home with hospice services. Total Time Total Time Spent Total Time Spent (In Minutes): 60 minutes Total Time Includes: Examination of the Patient, Discharge Planning, Medication Reconciliation, Communication With Other Providers and Other Discharge Plan Discharge Items Patient Disposition: Hospice - Home Reason For Visit: COPD EXACERBATION, RESP FAILURE Discharge Diagnosis: Dyspnea Chronic pain Agitation Acute on chronic respiratory failure with hypoxia and hypercapnia End-stage COPD Activity: Resume your previous activity Non-emergency contact: Primary Care Provider Call non-emergency contact if: you have any medication questions, your symptoms worsen, your pain is not controlled, your pain is worsening, your pain is unusual for you and your pain is concerning for you Follow-up/Referrals: Chris Diaz, [Primary Care Provider] - Diet: Regular Addtl Attending Provider Instructions: On day of discharge the Palliative Care Provider, Dr. Connolly, changed his frequency of Roxanol, and dosage of Zyprexa. Medication Changes at on day of discharge Roxanol, 10mg, every 4 hours -may hold if patient is sedated Zyprexa, 5mg in the morning and 10 mg ( 2 tablets) at bedtime Next dose of medications Ativan, 1mg, every 4 hours, due at 4 p.m. Roxanol 10mg every 4 hours, due at 4 p.m. Zyprexa, 10mg, due at 10 p.m. Please contact your hospice agency for additional needs with medications or other palliative care medications. Your primary care physician is another resource at this point for care in the home. It has been a pleasure taking care of you. Please take care of yourself. If you have any questions regarding your recent hospitalization please contact [facility] and request Dm Yunist @ [phone]. Wilma Mabry PA-C Pending Studies at Discharge: No Stand-Alone Forms: My [facility] Medications and DC Order Prescriptions: New lorazepam 1 mg Tablet 1 mg sublingual Q4 Qty: 30 RF: 0 morphine 10 mg/5 mL solution 10 mg PO Q4H Qty: 100 RF: 0 Continued nicotine 21 mg/24 hr patch 24 hour 21 mg topical DAILY RF: 0 Discontinued aspirin [Aspirin Low Dose] 81 mg Tablet,Delayed Release (Dr/Ec) 81 mg PO DAILY RF: 0 albuterol sulfate [Ventolin HFA] 90 mcg/actuation HFA aerosol inhaler 2 puff INHALATION Q4H PRN (Reason: Shortness Of Breath Or Wheezing) RF: 0 mirtazapine 45 mg tablet 45 mg PO HS RF: 0 sertraline [Zoloft] 100 mg tablet 200 mg PO HS RF: 0 clonazepam 1 mg tablet 1 mg PO TID RF: 0 ipratropium-albuterol 0.5 mg-3 mg(2.5 mg base)/3 mL solution for nebulization 3 ml inhalation Q4H PRN (Reason: Shortness Of Breath Or Wheezing) RF: 0 tizanidine [Zanaflex] 4 mg tablet 2 mg PO Q6H PRN (Reason: Muscle Spasm) RF: 0 olanzapine 2.5 mg tablet 2.5 mg PO HS RF: 0 Trelegy Ellipta 100-62.5-25 mcg blister with device 1 inh INHALATION DAILY RF: 0 Discharge Orders: Discharge Order (Routine); Ordered 05/03/21 Ordered By: Wilma Mabry Admission Data Admit Date/Time: 04/25/21 12:12 Attending Provider: Nisha Veras Admit Provider: Jorge L Almodovar Primary Care Provider: Chris Diaz Other Providers: Jorge L Almodovar ; Cherelle Connolly ; [facility] ; Wilma Mabry Other Interventions: Discharge Summary Assessment (RN) Last Done: 05/03/21 15:20 Supervising Physician Co-Signing Physician Notes I have seen and examined the patient and have discussed the case with the provider above. I agree with the assessment and plan as stated. Patient was examined by me at time of discharged and was somnolent and calmly breathing. He was not responsive to questioning. Agree with home care plan and transition to Home Hospice. DO Rito
[2021-05-03 15:21] VITALS: PULSE 82
[2021-05-04] MEDS ORDERED: OLANZapine ZYDIS 5 MG ORALLY DIS. TAB PO SCH (09:00)
== END 2021-05-03 16:17 | disposition hospice, home (50) | DRG 189 ==
LOC: ED 10:30 → 2S 12:12 → SUATTDRO 12:12 → 2S 15:05 → 3E 04-26 02:40
DX: J44.9 Chronic obstructive pulmonary disease, unspecified; R26.9 Unspecified abnormalities of gait and mobility; Z99.81 Dependence on supplemental oxygen; J96.22 Acute and chronic respiratory failure with hypercapnia; Z87.891 Personal history of nicotine dependence; J96.21 Acute and chronic respiratory failure with hypoxia; Z86.73 Personal history of transient ischemic attack (TIA), and cerebral infarction without residual deficits; F31.9 Bipolar disorder, unspecified; G93.41 Metabolic encephalopathy; Z68.1 Body mass index [BMI] 19.9 or less, adult; Z66 Do not resuscitate; Z51.5 Encounter for palliative care; E43 Unspecified severe protein-calorie malnutrition; R44.3 Hallucinations, unspecified; Z79.82 Long term (current) use of aspirin; E87.2 Acidosis